=== PATIENT | male | born 1970 | race Caucasian/White ===

== ENCOUNTER 2016-04-29 16:31 | Inpatient (IN) | payer OTHER ==
[~2016-04-29] VITALS: Ht 190.5 cm; Wt 145.2 kg
[~2016-04-29 16:31] MED LIST: AMOXICILLIN500 M3 PO; BACTRIM DS TAB1 EACH PO; DURICEF500 MG PO; FLAGYL 25O MG250 M1 PO; GLUCOPHAGE 500500 MG PO; GLYBURIDE5 MG PO; KEFLEX 250MG C250 MG PO; KEFLEX500 MG PO; LEVEMIR FL300 UNITS/ SC; NORVASC 5MG TAB5 MG PO; OXYCODONE HCL5 MG PO; PRINIVIL10 MG PO
--- NOTE | 2016-04-29 17:30 | History & Physical Pre-Op ---
General Information and HPI History of Present Illness: Sg is a 45-year-old diabetic who presents to the ER with a red, hot and swollen right foot. The patient has a long-standing and chronic complaint of a nonhealing ulcer of the plantar aspect of his right foot. He was seen by me in an outpatient setting periodically for debridements. According to the patient, the lesion significantly worsened over the past week with an increase in drainage or redness and swelling. The patient also admits to chills occurring over the weekend. Patient states that his sugars have been somewhat elevated. Allergies/Medications Allergies: Coded Allergies: cephalexin (From KEFLEX) (Intermediate, HIVES 04/29/16) adhesive (Mild, IRRITATION 04/29/16) Home Med list Amlodipine (Norvasc 5MG Tab) 5 MG TAB 5 MG PO DAILY HTN Amoxicillin 500 MG TABLET 1 TAB PO TID CELLULITIS Cephalexin (Keflex 250MG Cap) 250 MG CAP 3 CAP PO Q6 infection Insulin Detemir (Levemir Flexpen) 300 UNITS/3 ML PEN 14 UNIT SC BID DM Lisinopril (Prinivil) 10 MG TAB 40 MG PO DAILY HTN Metformin Hydochloride (Glucophage 500MG Tab) 500 MG TABLET 1 TAB PO BID DIABETES Metronidazole (Flagyl 25O MG Tablet) 250 MG TAB 500 MG PO Q8 c.diff colitis Oxycodone Hydrochloride (Oxycodone HCl) 5 MG TAB 5 MG PO Q4-PRN PRN PAIN SCALE 6-10 Sulfamethoxazole/Trimethoprim (Bactrim Ds Tablet) 1 EACH TABLET 1 TAB PO BID CELLULITIS Past History Medical History Neurological: NONE EENT: NONE Cardiovascular: hypertension Respiratory: NONE Gastrointestinal: NONE Hepatic: NONE Renal: NONE Musculoskeletal: NONE Psychiatric: NONE Endocrine: diabetes, obesity Blood Disorders: NONE Cancer(s): NONE History of MRSA: No History of VRE: No History of CDIFF: Yes Surgical History Pertinent Surgical History: non-contributory Past Family/Social History Family History Relations & Conditions if any FATHER (coronary artery disease-status post angioplasty and stents). MOTHER (diverticulitis). BROTHER (diabetes). Psychosocial History Services at Home None ETOH Use: occasional use Illicit Drug Use: denies illicit drug use Review of Systems Review of Systems: Unremarkable except for that noted in history of present illness Exam & Diagnostic Data Last 24 Hrs of Vital Signs/I&O Vital Signs Date Time Temp Pulse Resp B/P Pulse O2 O2 Flow FiO2 Ox Delivery Rate 04/29 1636 97.9 100 20 150/85 98 Room Air Physical Exam: Probing wound noted to the plantar aspect of the right great toe with cellulitis and edema extending to the medial arch and the dorsum of the foot proximally. There is fluctuance identified within the plantar medial space. Assessment/Plan Assessment/Plan: Diabetic foot infection with cellulitis right foot. Patient will be admitted for debridement and IV antibiotics. Patient nothing by mouth for now anticipating I&D tonight. Medical comanagement for diabetes pending. As Ranked By This Provider Problem List: 1. Cellulitis of right foot Attending MD Review Statement Attending Statement Attending MD Statement: examined this patient
--- NOTE | 2016-04-29 17:37 | ED ANKLE/FOOT INJURY COMPLAINT ---
History of Present Illness General Chief Complaint: General Adult Stated Complaint: SENT BY DR ORTIZ FOR EVLA OF RT FOOT ? INFECTI Source: patient Exam Limitations: no limitations Allergies Coded Allergies: cephalexin (From KEFLEX) (Intermediate, HIVES 04/29/16) adhesive (Mild, IRRITATION 04/29/16) Reconcile Medications Amlodipine (Norvasc 5MG Tab) 5 MG TAB 5 MG PO DAILY HTN Aspirin (Aspirin*) 81 MG TAB.CHEW 1 TAB PO DAILY heart (Reported) Insulin Detemir (Levemir Flextouch) 100 UNIT/ML (3 ML) INSULN.PEN 25 UNITS SC BID DIABETES (Reported) Lisinopril (Prinivil) 10 MG TAB 40 MG PO DAILY HTN Lovastatin 20 MG TABLET 1 TAB PO DAILY cholesterol (Reported) Metformin Hydochloride (Glucophage 500MG Tab) 500 MG TABLET 1 TAB PO BID DIABETES Sitagliptin Phosphate (Januvia) 100 MG TABLET 1 TAB PO DAILY DIABETES ( Reported) Triage Note: TRIAGE: PT SENT TO ER BY DR MALAGON FOR ADMISSION FOR INFECTION TO R FOOT. HAS HAD INJURY/INFECTION TO FOOT X APPROXIMATELY 4 MONTHS. Triage Nurses Notes Reviewed? yes HPI: This patient is a 45-year-old male with past medical history including diabetes who presented to the emergency department today sent in at the request of Dr. Malagon for a washout of right foot infection. The patient reported that he had the flu over the weekend and has had intermittent tactile fevers and chills since then. He reported that the pain in his right foot except an 8 out of 10, is throbbing, and radiates to his heel. The patient denied any numbness or tingling in his extremities. He denied any ankle or knee pain. This patient does not have anything to eat today. (INGE BISHOP,RADHA) Vital Signs & Intake/Output Vital Signs & Intake/Output Vital Signs Date Time Temp Pulse Resp B/P Pulse O2 O2 Flow FiO2 Ox Delivery Rate 05/01 0854 98.6 92 18 108/70 96 Room Air 05/01 0843 92 108/70 05/01 0654 98.1 94 22 126/70 97 Room Air 05/01 0257 98.0 93 22 126/70 97 Room Air 05/01 0000 Room Air 04/30 2350 98.8 04/30 2250 101.7 04/30 2228 102.3 108 22 130/70 92 Room Air 04/30 2151 102.3 ED Intake and Output 05/01 0000 04/30 1200 Intake Total 3800 300 Output Total Balance 3800 300 Intake, IV 2000 300 Intake, Oral 1800 Patient 320 lb Weight Past History Travel History Traveled to [place] past 21 day No Medical History Any Pertinent Medical History? see below for history Neurological: NONE EENT: NONE Cardiovascular: hypertension Respiratory: NONE Gastrointestinal: NONE Hepatic: NONE Renal: NONE Musculoskeletal: NONE Psychiatric: NONE Endocrine: diabetes, obesity Blood Disorders: NONE Cancer(s): NONE History of MRSA: No History of VRE: No History of CDIFF: Yes Surgical History Surgical History: non-contributory Psychosocial History Who do you live with Significant Other Services at Home None What is your primary language Lao Tobacco Use: Never used ETOH Use: occasional use Illicit Drug Use: denies illicit drug use Family History Family History, If Any: FATHER (coronary artery disease-status post angioplasty and stents). MOTHER (diverticulitis). BROTHER (diabetes). Hx Contributory? No (RADHA ALCAZAR PA-C) Review of Systems Review of Systems Constitutional: Reports: see HPI. EENTM: Reports: no symptoms. Respiratory: Reports: no symptoms. Cardiovascular: Reports: no symptoms. GI: Reports: no symptoms. Musculoskeletal: Reports: no symptoms. Skin: Reports: see HPI. Neurological/Psychological: Reports: no symptoms. All Other Systems: Reviewed and Negative (RADHA ALCAZAR PA-C) Physical Exam Physical Exam Leg/Knee/Thigh Left: normal range of motion, normal inspection Comments: Well-developed well-nourished person in no acute distress HEENT: Normal EENT exam, head normocephalic, moist mucous membranes Back: Normal inspection Cardiovascular: Regular rate and rhythm with no murmurs Respiratory: No respiratory distress. Speaking in full sentences Abdomen: Soft, nontender and nondistended Right foot: Nonpitting pedal edema. No bony or muscular deformities. Ulceration with no active bleeding to the medial aspect of the base of the first digit with surrounding erythema and edema. Range of motion of the ankle limited due to pain. Capillary refill less than 2 seconds. Dorsalis pedis and posterior tibialis pulses 2+ and strong Neuro: Alert oriented x3, cranial nerves II through XII grossly intact. Skin: No appreciable rash on exposed skin, skin is warm and dry. Psych: Mood and affect is normal, memory and judgment is normal. (INGE BISHOP,RADHA) Progress Differential Diagnosis: DVT, CHF, arterial insufficiency, cellulitis, septic arthritis, gout, osteomyelitis Diagnostic Imaging: Viewed by Me: Radiology Read. Discussed w/RAD: Radiology Read. Radiology Impression: PATIENT: ALF JUAREZ PRESENT AGE: 45 PATIENT ACCOUNT NO: [id number] : 68 LOCATION: [facility] ORDERING PHYSICIAN: RADHA ALCAZAR PA-C SERVICE DATE: 04/29/16 EXAM TYPE: RAD - XRY-FOOT COMPLETE, R EXAMINATION: XR FOOT, RIGHT CLINICAL INFORMATION: Right foot pain. Evaluate for acute osteomyelitis. COMPARISON: None. TECHNIQUE: AP, lateral, and oblique views of the right foot. FINDINGS: Multiple views of the right foot demonstrate scattered foci of subcutaneous emphysema along the plantar aspect of the right foot. A focal ulcer is also visualized along the plantar aspect of the right foot. No acute fracture or dislocation of the right foot is identified. There is no visible cortical destruction or significant periosteal reaction. However, please note that MRI and nuclear medicine bone scan are more sensitive in evaluating for early changes of acute osteomyelitis. No radiopaque foreign bodies are identified. IMPRESSION: Scattered foci of subcutaneous emphysema along the plantar aspect of the right foot with an associated soft tissue ulcer along the plantar aspect of the right foot. No visible cortical destruction or significant periosteal reaction. However, please note that MRI and nuclear medicine bone scan are more sensitive in evaluating for acute changes of osteomyelitis. If clinical concern for osteomyelitis persists, consider correlation with one of these imaging studies. DICTATED BY: MALGORZATA GARCIA MD DATE/TIME DICTATED:04/29/161838 ADOBE FLEX DEVELOPER:NOY DATE/TIME TRANSCRIBED:04/29/161838 CONFIDENTIAL, DO NOT COPY WITHOUT APPROPRIATE AUTHORIZATION. <Electronically signed in Other Vendor System> SIGNED BY: MALGORZATA GARCIA MD 04/29/16 4448 (INGE BISHOP,RADHA) Plan of Care: Orders Procedure Date/time Status SERUM PROTEIN ELECTR. Ref$ 05/02 0600 Active MAGNESIUM 05/02 0600 Active COMPLEMENT C4 05/02 0600 Active COMPLEMENT C3 05/02 0600 Active BASIC ELECTROLYTES PLUS BUN&CR 05/02 0600 Active Consistent Carbohydrate 2 05/01 D Active Nothing by Mouth 05/01 B Complete PATHOLOGY SPECIMEN 05/01 1408 Complete URINE LYTES, SPOT 05/01 0927 Complete US-RENAL/KIDNEY 05/01 UNK Active PHYSICIAN CONSULT 05/01 UNK Active MISSING MEDICATION FORM 04/30 UNK Active Current Medications Sig/Angela Start time Last Medication Dose Stop Time Status Admin Insulin Detemir 30 UNITS BID 05/01 2200 AC (Levemir) Sodium Chloride 1,000 ML Q6H 05/01 1500 AC (Normal Saline 0.9%) Acetaminophen 650 MG Q6-PRN PRN 04/29 2014 AC (Tylenol) Laboratory Tests 05/01/16 1250: Ur Random Creatinine 205.6, Ur Random Sodium < 5 L, Ur Random Potassium 56.1, Fraction Sodium Excret 05/01/16 0640: Anion Gap 13, Estimated GFR 38 L, BUN/Creatinine Ratio 21.6, CBC w Diff MAN DIFF ORDERED, RBC 3.81 L, MCV 90.5, MCH 30.6, RDW 13.3, MPV 9.3, Segmented Neutrophils 65, Band Neutrophils 22 H, Lymphocytes 6 L, Monocytes 7, Platelet Estimate VERIFIED BY SMEAR, Normocytic RBCs VERIFIED, Normochromic RBCs VERIFIED , PUBS MCHC 33.9 Departure Departure Disposition: STILL A PATIENT Condition: Stable Clinical Impression Primary Impression: Foot infection Referrals: POLK ,CARLOS Lujan (PCP/Family) Departure Forms: Customer Survey General Discharge Information OR/GI Note Spoke With: TERRY MALAGON DPM ED Treatment Decision: ALF JUAREZ requires urgent operative management or an emergent procedure that cannot be performed in the Emergency Room setting. Transport To: [facility] (INGE BISHOP,RADHA) PA/DIRECTOR FRAUD Co-Sign Statement Statement: ED Attending supervision documentation- [X] I saw and evaluated the patient. I have also reviewed all the pertinent lab results and diagnostic results. I agree with the findings and the plan of care as documented in the PA's/DIRECTOR FRAUD's documentation. [X] I have reviewed the ED Record and agree with the PA's/DIRECTOR FRAUD's documentation. [] Additions or exceptions (if any) to the PAs/DIRECTOR FRAUD's note and plan are summarized below: [] (SAUMYA PERKINS,ZEUS Hernandez)
[2016-04-29 17:52] LABS: ABSOLUTE BASOPHIL COUNT 0 /CUMM (0.0-0.2); ABSOLUTE EOSINOPHIL COUNT 0 /CUMM (0.0-0.7); ABSOLUTE GRANULOCYTE CT 22.5 /CUMM (1.4-6.5); ABSOLUTE LYMPH COUNT 0.8 /CUMM (1.2-3.4); ABSOLUTE MONOCYTE COUNT 0.9 /CUMM (0.10-0.60); BASOPHIL % 0 % (0.0-2.0); EOSINOPHIL % 0.1 % (0-5); GRANULOCYTE % 92.8 % (42.2-75.2); HEMATOCRIT 41.6 % (42-52); MEAN CORPUSCULAR HGB 30.5 PG (27.0-31.0); MEAN CORPUSCULAR HGB CONC 33.7 G/DL (33.0-37.0); MEAN CORPUSCULAR VOLUME 90.5 FL (80.0-94.0); MEAN PLATELET VOLUME 8.4 FL (7.4-10.4); PLATELET COUNT 276 /CUMM (130-400); RBC DISTRIBUTION WIDTH 12.8 % (11.5-14.5); WHITE BLOOD CELL COUNT 24.2 /CUMM (4.8-10.8)
[2016-04-29 17:59] LABS: PT 15.5 SEC (9.4-12.5); PTT 32 SEC (25-37)
[2016-04-29] MEDS ORDERED: JANUVIA100 M1 PO (18:23)
[2016-04-29] MEDS ORDERED: LEVEMIR FL100 UNIT/1 SC (18:23)
--- NOTE | 2016-04-29 18:44 | RADIOLOGY REPORT ---
EXAMINATION: XR FOOT, RIGHT CLINICAL INFORMATION: Right foot pain. Evaluate for acute osteomyelitis. COMPARISON: None. TECHNIQUE: AP, lateral, and oblique views of the right foot. FINDINGS: Multiple views of the right foot demonstrate scattered foci of subcutaneous emphysema along the plantar aspect of the right foot. A focal ulcer is also visualized along the plantar aspect of the right foot. No acute fracture or dislocation of the right foot is identified. There is no visible cortical destruction or significant periosteal reaction. However, please note that MRI and nuclear medicine bone scan are more sensitive in evaluating for early changes of acute osteomyelitis. No radiopaque foreign bodies are identified. IMPRESSION: Scattered foci of subcutaneous emphysema along the plantar aspect of the right foot with an associated soft tissue ulcer along the plantar aspect of the right foot. No visible cortical destruction or significant periosteal reaction. However, please note that MRI and nuclear medicine bone scan are more sensitive in evaluating for acute changes of osteomyelitis. If clinical concern for osteomyelitis persists, consider correlation with one of these imaging studies.
--- NOTE | 2016-04-29 20:15 | Operative Report ---
Operative/Inv Procedure Report Surgery Date: 04/29/16 Name of Procedure: 1 open incision and drainage deep to the D fashion with exposure of the extensor and flexor tendon and tendon sheath multiple sites right foot 2 open partial first ray resection right foot 3 excisional debridement Pre-Operative Diagnosis: 1 gas gangrene right foot 2 diabetic peripheral neuropathy Post-Operative Diagnosis: The same Estimated Blood Loss: less than 50ml Surgeon/Cost Estimating Clerk: TERRY MALAGON DPM Anesthesia: moderate sedation, block Operative/Procedure Note Note: After obtaining informed consent the patient was brought to the operating room and placed on the operating table in the supine position. The patient isn't securely fastened to the operating table utilizing safety belt. After administration of IV sedation, 10 mL of 0.5% Marcaine plain was infiltrated about the patient's right ankle. The right foot and ankle within scrubbed prepped and draped in usual aseptic manner. A large full-thickness necrotic was identified plantarly extending along the medial arch. 15 blade visualized sharply revised skin margins. Dissection was then carried down deep to the deep fascia with exposure of the extensor and flexor tendon and tendon sheath multiple sites right foot. All necrotic nonviable infected tissue sharply evacuated from the wound bed. Partially tendon 15 mL of foul-smelling purulence was expressed from the plantar space. Soft tissue specimen was harvested for microbiologic inspection. The dissection then continued onto the periosteum overlying the distal first metatarsal. This was incised reflected. Sagittal bone saw was utilized performed through and through osteotomy. This osseous segment was freed and passed from the operative field. Specimen was sent for both microbiologic and pathologic inspection. Nipple was then irrigated with 3 L normal normal sterile saline infusion 50,000 units of bacitracin. Following this the foot was redraped and the surgeon's top of gestation clean gloves. Any bleeding vessels identified were cauterized a lace encountered. Nipple was then packed with 200 iodoform followed by 4 x 4's EBD pads Kerlix and an Naldo wrap. The patient was noted tolerate both procedure and anesthesia well and the patient was transported from the operating room to recovery by sent stable.
[2016-04-29 22:00] VITALS: BP 118/82
[2016-04-29] MEDS ORDERED: ASPIRIN81 M4 PO (22:07)
[2016-04-29] MEDS ORDERED: LOVASTATIN20 M1 PO (22:11)
--- NOTE | 2016-04-29 22:39 | Cons- Medical ---
ANNETTE FIGUEROA 04/29/16 2225: General Information and HPI Consulting Request Date of Consult: 04/29/16 Requested By: TERRY MALAGON DPM Reason for Consult: Diabetes management Source of Information: patient Exam Limitations: no limitations History of Present Illness: He is 45-year-old Obese man with past medical history of poorly controlled diabetes, hypertension, chronic nonhealing ulcer of plantar aspect of his right foot status post multiple debridements in past by Dr. Malagon, history of multi loculated abscess in posterior neck status post I&D in 2016, history of C. difficile and obstructive sleep apnea not using CPAP anymore. He was sent to ER by Dr. Malagon for diabetic foot infection with cellulitis of right foot. He was admitted for debridement and IV antibiotics. 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 Patient is now status post open incision and drainage, excisional debridement and open partial first ray resection of right foot by Dr. Malagon today. Currently he is feeling mild pain in his right foot. Other review of systems negative. Patient has diabetes mellitus for last 25 years. Diabetes is very poorly controlled and he does not follow diabetic diet. He has an appointment with Dr. dawkins on June 05. He denies smoking, drinks alcohol occasionally, no use of recreational drugs. His family history is positive for coronary artery disease and CABG in his father, pancreatic cancer in his grandmother and history of diabetes in his grandfather and brother. Allergies/Medications Allergies: Coded Allergies: cephalexin (From KEFLEX) (Intermediate, HIVES 04/29/16) adhesive (Mild, IRRITATION 04/29/16) Home Med List: Amlodipine (Norvasc 5MG Tab) 5 MG TAB 5 MG PO DAILY HTN Aspirin (Aspirin*) 81 MG TAB.CHEW 1 TAB PO DAILY heart (Reported) Insulin Detemir (Levemir Flextouch) 100 UNIT/ML (3 ML) INSULN.PEN 25 UNITS SC BID DIABETES (Reported) Lisinopril (Prinivil) 10 MG TAB 40 MG PO DAILY HTN Lovastatin 20 MG TABLET 1 TAB PO DAILY cholesterol (Reported) Metformin Hydochloride (Glucophage 500MG Tab) 500 MG TABLET 1 TAB PO BID DIABETES Sitagliptin Phosphate (Januvia) 100 MG TABLET 1 TAB PO DAILY DIABETES ( Reported) Current Medications: Current Medications Sig/Angela Start time Last Medication Dose Route Stop Time Status Admin Acetaminophen 650 MG Q6-PRN PRN 04/29 2014 AC PO Amlodipine Besylate 5 MG DAILY 04/30 1000 UNVr PO Atorvastatin Calcium 20 MG DAILY 04/30 1000 UNVr PO Enoxaparin Sodium 40 MG DAILY 04/30 1000 UNVr SC Insulin Aspart 0 TIDAC/HS 04/29 224 UNVr SC Insulin Detemir 25 UNITS BID 04/30 1000 UNVr SC Insulin Detemir 12 UNITS ONCE ONE 04/29 2214 UNVr SC 04/29 2215 Lisinopril 40 MG DAILY 04/30 1000 UNVr PO Oxycodone HCl 5 MG Q4-PRN PRN 04/29 2029 AC PO Vancomycin HCl 1,500 MG Q12 04/29 2199 CAN IV Vancomycin HCl 1,500 MG Q12H 04/29 2199 AC Sodium Chloride 250 ML IV Review of Systems Review of Systems Constitutional: Denies: chills, fever, weakness. EENTM: Denies: no symptoms. Cardiovascular: Denies: chest pain, palpitations. Respiratory: Denies: cough, short of breath. GI: Denies: abdominal pain, constipation, diarrhea, nausea, vomiting. Genitourinary: Denies: dysuria. Neurological/Psychological: Reports: numbness (toes of right foot). 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 MOTHER (diverticulitis). BROTHER (diabetes). Psychosocial History Where Do You Live? Home Services at Home: None Smoking Status: Never Smoked ETOH Use: occasional use Illicit Drug Use: denies illicit drug use Functional Ability ADLs Independent: dressing, eating, toileting, bathing. Exam & Diagnostic Data Last 24 Hrs of Vital Signs/I&O Vital Signs Date Time Temp Pulse Resp B/P Pulse O2 O2 Flow FiO2 Ox Delivery Rate 04/29 1820 99.2 112 16 144/75 99 Room Air 04/29 1749 98 Room Air 04/29 1636 97.9 100 20 150/85 98 Room Air Physical Exam General Appearance: no apparent distress, alert, awake, comfortable, obese Respiratory: normal breath sounds, chest non-tender, lungs clear Cardiovascular: tachycardia Peripheral Pulses: 4+ popliteal (R), 4+ tibialis posterior (L), 4+ dorsalis pedis (L) Gastrointestinal: normal bowel sounds, soft, non-tender, obese Extremities: chronic venous stasis skin changes bilaterally lower extremities, right foot bandage intact. Right leg is swollen as compared to left. No redness, warmth or tenderness Neurologic/Psych: awake, alert, oriented x 3 Last 24 Hrs of Labs/Ramin: Laboratory Tests 04/29/16 1735: Anion Gap 18 H, Estimated GFR > 60, BUN/Creatinine Ratio 19.1, Glucose 418 H, Calcium 9.6, Total Bilirubin 0.9, AST 14 L, ALT 22, Alkaline Phosphatase 90, Total Protein 7.2, Albumin 3.2 L, Globulin 4.0, Albumin/Globulin Ratio 0.8 L, PT 15.5 H, INR 1.48 H, APTT 32, CBC w Diff MAN DIFF ORDERED, RBC 4.60 L, MCV 90.5, MCH 30.5, RDW 12.8, MPV 8.4, Gran % 92.8 H, Lymphocytes % 3.2 L, Monocytes % 3.9, Eosinophils % 0.1, Basophils % 0 L, Absolute Granulocytes 22.5 H, Segmented Neutrophils 87 H, Band Neutrophils 8 H, Absolute Lymphocytes 0.8 L, Lymphocytes 2 L, Monocytes 3, Absolute Monocytes 0.9 H, Absolute Eosinophils 0, Absolute Basophils 0, Platelet Estimate ADEQUATE, Normocytic RBCs VERIFIED, Normochromic RBCs VERIFIED, PUBS MCHC 33.7, ESR Westergren 113 H Diagnostic Data EKG Results Normal sinus rhythm. No acute ST-T wave changes Other Results Right foot x-ray showed subcutaneous emphysema along the plantar aspect of right foot with an associated soft tissue ulcer. Assessment/Plan Assessment/Plan He is 45-year-old Obese man with past medical history of poorly controlled diabetes, hypertension, chronic nonhealing ulcer of plantar aspect of his right foot status post multiple debridements in past by Dr. Malagon, history of multi loculated abscess in posterior neck status post I&D in 2016, history of C. difficile and obstructive sleep apnea not using CPAP anymore. Problem list 1. Sepsis secondary to chronic nonhealing ulcer of right foot now with cellulitis and gas gangrene status post excisional debridement and first ray resection right foot. He was tachycardic with WBC count 24.2 with 8 bands. 2. History of poorly controlled diabetes mellitus 3. History of hypertension 4. Hyponatremia. Sodium is 129. Patient blood sugar was 418 so corrected sodium is around 135 that is closer to baseline. 5. Slightly elevated INR. 1.48. Patient might have fatty liver disease. Plan We will monitor vitals closely. Continue IV vancomycin and pain management with Tylenol and Roxicodone. Follow-up blood and OR cultures. We will start patient on NovoLog insulin sliding scale, medium dose, before each meal in addition to bedtime sliding scale. We will continue his home dose of Levemir, 25 units twice a day. Accu-Cheks before each meal and at bedtime. Will hold his metformin and Januvia while in hospital. will check HbA1c. Consistent carbohydrate diet. Endo consult in a.m. We will continue his amlodipine and lisinopril for hypertension. Will repeat BEP and CBC in morning. Subcutaneous Lovenox for DVT prophylaxis. Full code. Problem List: 1. Cellulitis of right foot Consult Acknowledgment - Thank you for your consult request. TERA PERKINS, [facility] 04/29/16 2497: Assessment/Plan Consult Acknowledgment - Thank you for your consult request. Attending MD Review Statement Attending Statement Attending MD Statement: examined this patient, discuss w/resident/PA/ASSOCIATE PROFESSOR OF MEDICINE, agreed w/resident/PA/ASSOCIATE PROFESSOR OF MEDICINE, discussed with family Attending Assessment/Plan: 45 yo morbidly obese M with h/o poorly controlled T2DM on insulin (A1c 11.4 in Feb 2016), neuropathy, HTN, HLD, last admitted to [facility] (04/14/15 04/18/15) for abscess of posterior neck, course c/b Cdiff infection, MELISSA, DJD, is s/p excisional debridement and first ray resection of right foot due to gas gangrene of right foot. Patient has been having chronic nonhealing ulcer of plantar aspect of his right foot and has had multiple debridements by Dr. Malagon. Over the past week, there was increasing discharge, erythema and swelling around the wound due to which patient was evaluated at Dr. Malagon office and sent in to ER for admission and debridement. Currently patient is asymptomatic. Vitals stable. Labs with leukocytosis (24) and bandemia (8), Na 129, BUN 21, AG 18, glucose 418. EKG: Sinus tachycardia with nonspecific T-wave changes. Assessment and plan: 1. Plan for return to OR on Wednesday per Dr. Malagon. Continue Vancomycin until culture results are back. Dr. Malagon to consult with ID. Pain management. 2. DM. Accucheks, check HbA1c, levemir 12 units tonight, change to 25 units BID from AM (home dose). Hold metformin and januvia. Initiate novolog SS TIDAC/HS. Patient has an scheduled appointment with Dr. Dawkins on June 05. Endo consult I spoke with Dr. Dawkins and gave her a brief idea about the patient. 3. HTN. Resume amlodipine and lisinopril. Resume aspirin in AM. 4. HLD. Resume statin. DVT ppx Lovenox.
[2016-04-30 06:38] VITALS: BP 138/72
--- NOTE | 2016-04-30 07:25 | PN- Medicine Consult ---
ELIER NAILS 04/30/16 0724: Assessment/Plan Assessment/Plan Assessment: This is a 45-year-old Obese man with past medical history of poorly controlled diabetes, hypertension, chronic nonhealing ulcer of plantar aspect of his right foot status post multiple debridements in past by Dr. Dowd, history of multi loculated abscess in posterior neck status post I&D in 2016, history of C. difficile and obstructive sleep apnea not using CPAP anymore. 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 He was admitted for debridement and IV antibiotics and today is day one post procedure. Plan: Sepsis secondary to chronic nonhealing ulcer of right foot now with cellulitis and gas gangrene status post excisional debridement and first ray resection right foot. He was tachycardic with WBC count 24.2 with 8 bands. Patient remained afebrile overnight. CBC still pending to assess for leukocytosis and bands. Is on IV vancomycin 1500 mg daily. Continue with IV antibiotics and monitor for any signs of infections. His patient has continued to be tachycardic with heart rate between 110 and 120 overnight on presentation had an anion gap of 18, I'll check lactic acid and consider hydration. With evidence of gas on the foot x-rayed this patient will benefit from anaerobic coverage especially IV Unasyn. Dr. Wayne will consult ID about the case follow-up recommendations. Acute kidney injury This morning the patient has increased creatinine of 1.5 from 1.1 yesterday and also increasing BUN to 28. There is no record of urine output overnight instructed the nurse to measure urine. We will hydrate the patient with 1 L at 250 mL/h and then to continue at 150 mL for another 2 L. History of poorly controlled diabetes mellitus Patient started on diabetic diet and is on insulin sliding scale. HbA1c results still pending, follow-up. Patient follows with Dr. Azul formal endocrinology consult pending. Fingerstick at night 384. Continue with Accu-Cheks and insulin. Follow-up endocrinology consult recommendations. History of hypertension Patient has history of hypertension he is on amlodipine 5 mg daily. Overnight blood pressure has remained stable with diastolic between 70 and 75 and a systolic of 130 to 140. Problem List: 1. Foot infection 2. Cellulitis of right foot 3. Sepsis Subjective Subjective: Review the patient seated comfortably on the bed waiting to eat his breakfast. Patient reports to have slept well, he is anxious as he doesn't like being in within healthcare facilities and just got the news that she is to needed to be taken out which was to be towards some for him. He denies any fever or chills overnight. He has no nausea or vomiting and was getting ready to have his breakfast. Review of Systems Constitutional: Denies: chills, fever. Cardiovascular: Denies: chest pain, palpitations. Respiratory: Denies: cough, short of breath. Gastrointestinal: Denies: abdominal pain, nausea, vomiting. Genitourinary: Denies: no symptoms. Musculoskeletal: Reports: see HPI. Comments: All other systems reviewed and are negative Objective Last 24 Hrs of Vital Signs/I&O Vital Signs Date Time Temp Pulse Resp B/P Pulse O2 O2 Flow FiO2 Ox Delivery Rate 04/30 0648 95 Room Air 04/30 0638 97.8 119 23 138/72 97 Nasal Cannula 04/30 0000 97 Nasal 2.0L Cannula 04/29 2200 99.1 108 24 118/82 97 Nasal 2.0L Cannula 04/29 1820 99.2 112 16 144/75 99 Room Air 04/29 1749 98 Room Air 04/29 1636 97.9 100 20 150/85 98 Room Air Intake & Output 04/30 1600 04/30 0800 04/30 0000 Intake Total 300 Output Total Balance 300 Intake, IV 300 Patient 320 lb Weight Physical Exam General Appearance: no apparent distress, alert, awake Head: atraumatic, normal appearance Neck: normal inspection, supple Cardiovascular: regular rate/rhythm Respiratory: normal breath sounds, no respiratory distress Abdomen: normal bowel sounds, soft, non-tender Extremities: Right foot bandaged post procedure Current Medications: Current Medications Sig/Angela Start time Last Medication Dose Route Stop Time Status Admin Acetaminophen 1,000 MG .STK-MED ONE 04/29 2021 DC IV 04/29 2022 Acetaminophen 650 MG Q6-PRN PRN 04/29 2014 AC PO Amlodipine Besylate 5 MG DAILY 04/30 1000 AC PO Aspirin 81 MG DAILY 04/30 1000 AC PO Atorvastatin Calcium 20 MG DAILY 04/30 1000 AC PO Enoxaparin Sodium 40 MG DAILY 04/30 1000 AC SC Influenza Virus 0.5 ML 1000 04/30 1000 AC Vaccine IM 04/30 1001 Insulin Aspart 0 TIDAC/HS 04/29 2245 AC 04/30 SC 0848 Insulin Detemir 25 UNITS BID 04/30 1000 DC SC Insulin Detemir 30 UNITS BID 04/30 1000 AC SC Insulin Detemir 12 UNITS ONCE ONE 04/29 2215 DC 04/29 SC 04/29 221 2250 Lisinopril 40 MG DAILY 04/30 1000 AC PO Oxycodone HCl 5 MG Q4-PRN PRN 04/29 2030 AC 04/30 PO 0634 Sodium Chloride 1,000 ML .Q4H 04/30 0900 UNVr IV 04/30 1259 Vancomycin HCl 1,500 MG Q12 04/29 2200 CAN IV Vancomycin HCl 1,500 MG Q12H 04/29 220 AC 04/29 Sodium Chloride 250 ML IV 2356 Results Last 24 Hrs Lab/Ramin Results: Laboratory Tests 04/30/16 0823: Lactic Acid Pending 04/30/16 0705: Anion Gap 16, Estimated GFR 50 L, BUN/Creatinine Ratio 18.7, Glucose Pending, Magnesium 1.6, Troponin I < 0.01, CBC w Diff Pending, WBC Pending, RBC Pending, Hgb Pending, Hct Pending, MCV Pending, MCH Pending, RDW Pending, Plt Count Pending, MPV Pending, Gran % Pending, Lymphocytes % Pending, Monocytes % Pending , Eosinophils % Pending, Basophils % Pending, Absolute Granulocytes Pending, Absolute Lymphocytes Pending, Absolute Monocytes Pending, Absolute Eosinophils Pending, Absolute Basophils Pending, PUBS MCHC Pending 04/29/16 1735: Hemoglobin A1c Pending 04/29/16 1735: Anion Gap 18 H, Estimated GFR > 60, BUN/Creatinine Ratio 19.1, Glucose 418 H, Calcium 9.6, Total Bilirubin 0.9, AST 14 L, ALT 22, Alkaline Phosphatase 90, Total Protein 7.2, Albumin 3.2 L, Globulin 4.0, Albumin/Globulin Ratio 0.8 L, PT 15.5 H, INR 1.48 H, APTT 32, CBC w Diff MAN DIFF ORDERED, RBC 4.60 L, MCV 90.5, MCH 30.5, RDW 12.8, MPV 8.4, Gran % 92.8 H, Lymphocytes % 3.2 L, Monocytes % 3.9, Eosinophils % 0.1, Basophils % 0 L, Absolute Granulocytes 22.5 H, Segmented Neutrophils 87 H, Band Neutrophils 8 H, Absolute Lymphocytes 0.8 L, Lymphocytes 2 L, Monocytes 3, Absolute Monocytes 0.9 H, Absolute Eosinophils 0, Absolute Basophils 0, Platelet Estimate ADEQUATE, Normocytic RBCs VERIFIED, Normochromic RBCs VERIFIED, PUBS MCHC 33.7, ESR Westergren 113 H Microbiology 04/29 1999 EXTREMITIE: Gross Specimen Examination - RECD 04/29 1999 EXTREMITIE: Gram Stain - RECD 04/29 1999 EXTREMITIE: Gross Specimen Examination - RES 04/29 1999 EXTREMITIE: Gram Stain - RES 04/29 1745 BLOOD: Blood Culture - RES GRAM POSITIVE COCCI 04/29 173 BLOOD: Blood Culture - RES GRAM POSITIVE COCCI GINGER TSE MD 04/30/16 1813: Attending MD Review Statement Attending Sign Off Attending Cosign Statement: I have: examined this patient, reviewed [facility] EMR data, personally reviewd images, discussd w/resident/PA/MEDICAL DIRECTOR OCCUPATIONAL HEALTH, discussed mgmt plan w/bob, amended to note. Other Findings: The patient was seen and discussed with the resident. Agree with the plan of care. Appreciate ID input and agree with change to Unasyn.
[2016-04-30 08:03] LABS: ABSOLUTE BASOPHIL COUNT 0.1 /CUMM (0.0-0.2); ABSOLUTE EOSINOPHIL COUNT 0 /CUMM (0.0-0.7); ABSOLUTE GRANULOCYTE CT 21.4 /CUMM (1.4-6.5); ABSOLUTE LYMPH COUNT 0.9 /CUMM (1.2-3.4); BASOPHIL % 0.2 % (0.0-2.0); EOSINOPHIL % 0 % (0-5); GRANULOCYTE % 91.6 % (42.2-75.2); HEMATOCRIT 38.1 % (42-52); MEAN CORPUSCULAR HGB 30.4 PG (27.0-31.0); MEAN CORPUSCULAR HGB CONC 33.6 G/DL (33.0-37.0); MEAN CORPUSCULAR VOLUME 90.5 FL (80.0-94.0); MEAN PLATELET VOLUME 9.1 FL (7.4-10.4); PLATELET COUNT 276 /CUMM (130-400); RED BLOOD CELL CT 4.21 /CUMM (4.70-6.10); WHITE BLOOD CELL COUNT 23.3 /CUMM (4.8-10.8)
--- NOTE | 2016-04-30 08:50 | Cons- Endocrinology ---
General Information and HPI Consulting Request Date of Consult: 04/30/16 Requested By: Medical team Reason for Consult: management of uncontrolled DM type 2. Source of Information: patient, old records Exam Limitations: no limitations History of Present Illness: 45-year-old Obese man with past medical history of poorly controlled diabetes type 2 who has an appointment in 05/2016 as a new patient, was admitted for diabetic right foot infection with cellulitis of right lower extremity and positive blood culture of gram positive cocci. He underwent surgical procedure including toe amputation. He received Levemir 12 units last night. His FSGs were 384 and 361. At home, he was on Levemir 25 units twice a day, Metformin 500 mg twice a day and Januvia 100 mg daily. Allergies/Medications Allergies: Coded Allergies: cephalexin (From KEFLEX) (Intermediate, HIVES 04/29/16) adhesive (Mild, IRRITATION 04/29/16) Home Med List: Amlodipine (Norvasc 5MG Tab) 5 MG TAB 5 MG PO DAILY HTN Aspirin (Aspirin*) 81 MG TAB.CHEW 1 TAB PO DAILY heart (Reported) Insulin Detemir (Levemir Flextouch) 100 UNIT/ML (3 ML) INSULN.PEN 25 UNITS SC BID DIABETES (Reported) Lisinopril (Prinivil) 10 MG TAB 40 MG PO DAILY HTN Lovastatin 20 MG TABLET 1 TAB PO DAILY cholesterol (Reported) Metformin Hydochloride (Glucophage 500MG Tab) 500 MG TABLET 1 TAB PO BID DIABETES Sitagliptin Phosphate (Januvia) 100 MG TABLET 1 TAB PO DAILY DIABETES ( Reported) Review of Systems Review of Systems Constitutional: Reports: see HPI. Cardiovascular: Denies: chest pain. Respiratory: Denies: short of breath. GI: Denies: abdominal pain. Musculoskeletal: Reports: no symptoms. Skin: Reports: see HPI. Hematologic/Endocrine: Denies: polyuria, polydipsia. Past History Travel History Traveled to [place] past 21 day No Medical History Blood Transfusion Hx: No Neurological: NONE EENT: NONE Cardiovascular: hypertension, hyperlipidemia Respiratory: NONE Gastrointestinal: NONE Hepatic: NONE Renal: NONE Musculoskeletal: NONE Psychiatric: NONE Endocrine: diabetes, obesity Blood Disorders: NONE Cancer(s): NONE POURER BUGGY LADLE/Reproductive: NONE Surgical History Surgical History: appendectomy, ABSCESS DRAINAGE TO HEAD L SHOULDER SX Family History Relations & Conditions If Any: FATHER (coronary artery disease-status post angioplasty and stents). MOTHER (diverticulitis). BROTHER (diabetes). Psychosocial History Where Do You Live? Home Services at Home: None Smoking Status: Never Smoked ETOH Use: occasional use Illicit Drug Use: denies illicit drug use Functional Ability ADLs Independent: dressing, eating, toileting, bathing. Exam & Diagnostic Data Last 24 Hrs of Vital Signs/I&O Vital Signs Date Time Temp Pulse Resp B/P Pulse O2 O2 Flow FiO2 Ox Delivery Rate 04/30 0648 95 Room Air 04/30 0638 97.8 119 23 138/72 97 Nasal Cannula 04/30 0000 97 Nasal 2.0L Cannula 04/29 2200 99.1 108 24 118/82 97 Nasal 2.0L Cannula 04/29 1820 99.2 112 16 144/75 99 Room Air 04/29 1749 98 Room Air 04/29 1636 97.9 100 20 150/85 98 Room Air Intake & Output 04/30 1600 04/30 0800 04/30 0000 Intake Total 300 Output Total Balance 300 Intake, IV 300 Patient 320 lb Weight Physical Exam General Appearance: no apparent distress Respiratory: lungs clear Cardiovascular: tachycardia Gastrointestinal: soft, non-tender Extremities: swelling, tenderness (right LE) Labs/Ramin Results: Laboratory Tests 04/30 04/30 04/29 0823 0705 1735 Chemistry Sodium (137 - 145 mmol/L) 129 L Potassium (3.5 - 5.1 mmol/L) 4.3 Chloride (98 - 107 mmol/L) 92 L Carbon Dioxide (22 - 30 mmol/L) 21 L Anion Gap (5 - 16) 16 BUN (9 - 20 mg/dL) 28 H Creatinine (0.7 - 1.2 mg/dL) 1.5 H Estimated GFR (>60 ml/min) 50 L BUN/Creatinine Ratio (7 - 25 %) 18.7 Glucose (65 - 99 mg/dL) Pending Hemoglobin A1c Pending Lactic Acid Pending Magnesium (1.6 - 2.3 mg/dL) 1.6 Troponin I (<0.11 ng/ml) < 0.01 Hematology CBC w Diff Pending WBC Pending RBC Pending Hgb Pending Hct Pending MCV Pending MCH Pending RDW Pending Plt Count Pending MPV Pending Gran % Pending Lymphocytes % Pending Monocytes % Pending Eosinophils % Pending Basophils % Pending Absolute Granulocytes Pending Absolute Lymphocytes Pending Absolute Monocytes Pending Absolute Eosinophils Pending Absolute Basophils Pending PUBS MCHC Pending 04/29 2855 Chemistry Sodium (137 - 145 mmol/L) 129 L Potassium (3.5 - 5.1 mmol/L) 4.3 Chloride (98 - 107 mmol/L) 89 L Carbon Dioxide (22 - 30 mmol/L) 23 Anion Gap (5 - 16) 18 H BUN (9 - 20 mg/dL) 21 H Creatinine (0.7 - 1.2 mg/dL) 1.1 Estimated GFR (>60 ml/min) > 60 BUN/Creatinine Ratio (7 - 25 %) 19.1 Glucose (65 - 99 mg/dL) 418 H Calcium (8.4 - 10.2 mg/dL) 9.6 Total Bilirubin (0.2 - 1.3 mg/dL) 0.9 AST (17 - 59 U/L) 14 L ALT (21 - 72 U/L) 22 Alkaline Phosphatase (< 127 U/L) 90 Total Protein (6.3 - 8.2 g/dL) 7.2 Albumin (3.5 - 5.0 g/dL) 3.2 L Globulin (1.9 - 4.2 gm/dL) 4.0 Albumin/Globulin Ratio (1.1 - 2.2 %) 0.8 L Coagulation PT (9.4 - 12.5 SEC) 15.5 H INR (0.90 - 1.17) 1.48 H APTT (25 - 37 SEC) 32 Hematology CBC w Diff MAN DIFF ORDERED WBC (4.8 - 10.8 /CUMM) 24.2 H RBC (4.70 - 6.10 /CUMM) 4.60 L Hgb (14.0 - 18.0 G/DL) 14.0 Hct (42 - 52 %) 41.6 L MCV (80.0 - 94.0 FL) 90.5 MCH (27.0 - 31.0 PG) 30.5 RDW (11.5 - 14.5 %) 12.8 Plt Count (130 - 400 /CUMM) 276 MPV (7.4 - 10.4 FL) 8.4 Gran % (42.2 - 75.2 %) 92.8 H Lymphocytes % (20.5 - 51.1 %) 3.2 L Monocytes % (1.7 - 9.3 %) 3.9 Eosinophils % (0 - 5 %) 0.1 Basophils % (0.0 - 2.0 %) 0 L Absolute Granulocytes (1.4 - 6.5 /CUMM) 22.5 H Segmented Neutrophils (42.2 - 75.2 %) 87 H Band Neutrophils (0.0 - 5.0 %) 8 H Absolute Lymphocytes (1.2 - 3.4 /CUMM) 0.8 L Lymphocytes (20.5 - 51.1 %) 2 L Monocytes (1.7 - 9.3 %) 3 Absolute Monocytes (0.10 - 0.60 /CUMM) 0.9 H Absolute Eosinophils (0.0 - 0.7 /CUMM) 0 Absolute Basophils (0.0 - 0.2 /CUMM) 0 Platelet Estimate (ADEQUATE) ADEQUATE Normocytic RBCs VERIFIED Normochromic RBCs VERIFIED PUBS MCHC (33.0 - 37.0 G/DL) 33.7 ESR Westergren (0 - 10 MM) 113 H Assessment/Plan Assessment/Plan 45-year-old Obese man with past medical history of poorly controlled diabetes type 2 who has an appointment in 05/2016 as a new patient, was admitted for diabetic right foot infection with cellulitis of right lower extremity and positive blood culture of gram positive cocci. DM management: 1. increase Levemir to 30 units twice a day; 2. adjust Novolog coverage before meals and Novolog coverage at bedtime--detail see the inpatient DM orders. 3. monitor FSGs ( goal of his FSG is between 100 and 200); will follow. Inpatient Diabetes Orders Before Each Meal: Bolus Insulin: Novolog < 80 mg/dl: no coverage 80-100 mg/dl: 6 units 101-120 mg/dl: 6 units 121-150 mg/dl: 6 units 151-200 mg/dl: 8 units 201-250 mg/dl: 10 units 251-300 mg/dl: 12 units 301-350 mg/dl: 14 units 351-400 mg/dl: 16 units > 400 mg/dl: 18 units Bedtime: Bolus Insulin: Novolog < 80 mg/dl: no coverage 80-100 mg/dl: no coverage 101-120 mg/dl: no coverage 121-150 mg/dl: no coverage 151-200 mg/dl: no coverage 201-250 mg/dl: 2 units 251-300 mg/dl: 3 units 301-350 mg/dl: 4 units 351-400 mg/dl: 5 units > 400 mg/dl: 6 units Consult Acknowledgment - Thank you for your consult request.
--- NOTE | 2016-04-30 14:12 | Cons- Infect Disease ---
General Information and HPI Consulting Request Date of Consult: 04/30/16 Requested By: TERRY MALAGON DPM Reason for Consult: Osteomyelitis right foot/Group B strep bacteremia Source of Information: patient, old records History of Present Illness: this is a 45-year-old man with diabetes, with a chronic right foot plantar ulcer for the past 6 months, seen in the emergency room 6 months prior to admission with right foot and leg swelling and discharged on Amoxicillin and Bactrim, followed by Podiatry since then with periodic debridements and treatment with at least one course of Augmentin with no problems reported, admitted on April 29 after he was sent to the emergency room by Podiatry because of several days of increased erythema and edema of the right great toe, associated with drainage from the ulcer, fevers and chills. On admission he was afebrile. Laboratory data revealed a white blood cell count of 24,000, with 87 segs and 8 bands, glucose 418, BUN/creatinine 21 and 1.1, sodium 129, normal liver enzymes, INR 1.48. X-ray of the right foot revealed scattered foci of subcutaneous emphysema along the plantar aspect of the right foot with no visible cortical destruction or significant periosteal reaction. He was taken to the OR for an open partial first ray resection of the right foot and excisional debridement and was placed on Vancomycin postoperatively. He has remained afebrile overnight. This morning blood cultures 2 were reported positive for gram-positive cocci in pairs and chains. He does report mild discomfort in the right foot but offers no other complaints at this time. Allergies/Medications Allergies: Coded Allergies: cephalexin (From KEFLEX) (Intermediate, HIVES 04/29/16) adhesive (Mild, IRRITATION 04/29/16) Home Med List: Amlodipine (Norvasc 5MG Tab) 5 MG TAB 5 MG PO DAILY HTN Aspirin (Aspirin*) 81 MG TAB.CHEW 1 TAB PO DAILY heart (Reported) Insulin Detemir (Levemir Flextouch) 100 UNIT/ML (3 ML) INSULN.PEN 25 UNITS SC BID DIABETES (Reported) Lisinopril (Prinivil) 10 MG TAB 40 MG PO DAILY HTN Lovastatin 20 MG TABLET 1 TAB PO DAILY cholesterol (Reported) Metformin Hydochloride (Glucophage 500MG Tab) 500 MG TABLET 1 TAB PO BID DIABETES Sitagliptin Phosphate (Januvia) 100 MG TABLET 1 TAB PO DAILY DIABETES ( Reported) Past History Travel History Traveled to [place] past 21 day No Medical History Blood Transfusion Hx: No Neurological: NONE EENT: NONE Cardiovascular: hypertension, hyperlipidemia Respiratory: NONE Gastrointestinal: C. 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 MOTHER (diverticulitis). BROTHER (diabetes). Psychosocial History Where Do You Live? Home Services at Home: None Smoking Status: Never Smoked ETOH Use: occasional use Illicit Drug Use: denies illicit drug use Functional Ability ADLs Independent: dressing, eating, toileting, bathing. Review of Systems Review of Systems All Other Systems: Reviewed and Negative Exam & Diagnostic Data Last 24 Hrs of Vital Signs/I&O Vital Signs Date Time Temp Pulse Resp B/P Pulse O2 O2 Flow FiO2 Ox Delivery Rate 04/30 1004 127 136/78 04/30 1004 127 136/78 04/30 0648 95 Room Air 04/30 0638 97.8 119 23 138/72 97 Nasal Cannula 04/30 0000 97 Nasal 2.0L Cannula 04/29 2200 99.1 108 24 118/82 97 Nasal 2.0L Cannula 04/29 1820 99.2 112 16 144/75 99 Room Air 04/29 1749 98 Room Air 04/29 1636 97.9 100 20 150/85 98 Room Air Intake & Output 04/30 1600 04/30 0800 04/30 0000 Intake Total 300 Output Total Balance 300 Intake, IV 300 Patient 320 lb Weight Physical Exam Other Physical Findings: He is awake and alert in no acute distress. He is afebrile. Skin reveals no rash. HEENT exam is negative. Neck is supple with no adenopathy. Lungs are clear. Heart regular rhythm with no murmur. Abdomen is obese, soft, nontender with positive bowel sounds. Back no CVA tenderness. Extremities right foot dressing intact; left foot with 2+ pulses.. Neuro is without focality. Last 24 Hours of Lab Results: Laboratory Tests 04/30 04/30 04/29 0823 0705 1735 Chemistry Sodium (137 - 145 mmol/L) 129 L Potassium (3.5 - 5.1 mmol/L) 4.3 Chloride (98 - 107 mmol/L) 92 L Carbon Dioxide (22 - 30 mmol/L) 21 L Anion Gap (5 - 16) 16 BUN (9 - 20 mg/dL) 28 H Creatinine (0.7 - 1.2 mg/dL) 1.5 H Estimated GFR (>60 ml/min) 50 L BUN/Creatinine Ratio (7 - 25 %) 18.7 Glucose (65 - 99 mg/dL) 374 H Hemoglobin A1c Pending Lactic Acid (0.7 - 2.1 mmol/L) 1.8 Magnesium (1.6 - 2.3 mg/dL) 1.6 Troponin I (<0.11 ng/ml) < 0.01 Hematology CBC w Diff MAN DIFF ORDERED WBC (4.8 - 10.8 /CUMM) 23.3 H RBC (4.70 - 6.10 /CUMM) 4.21 L Hgb (14.0 - 18.0 G/DL) 12.8 L Hct (42 - 52 %) 38.1 L MCV (80.0 - 94.0 FL) 90.5 MCH (27.0 - 31.0 PG) 30.4 RDW (11.5 - 14.5 %) 13.0 Plt Count (130 - 400 /CUMM) 276 MPV (7.4 - 10.4 FL) 9.1 Gran % (42.2 - 75.2 %) 91.6 H Lymphocytes % (20.5 - 51.1 %) 3.9 L Monocytes % (1.7 - 9.3 %) 4.3 Eosinophils % (0 - 5 %) 0 Basophils % (0.0 - 2.0 %) 0.2 Absolute Granulocytes (1.4 - 6.5 /CUMM) 21.4 H Segmented Neutrophils (42.2 - 75.2 %) 71 Band Neutrophils (0.0 - 5.0 %) 16 H Absolute Lymphocytes (1.2 - 3.4 /CUMM) 0.9 L Lymphocytes (20.5 - 51.1 %) 7 L Monocytes (1.7 - 9.3 %) 5 Absolute Monocytes (0.10 - 0.60 /CUMM) 1.0 H Absolute Eosinophils (0.0 - 0.7 /CUMM) 0 Absolute Basophils (0.0 - 0.2 /CUMM) 0.1 Myelocytes (0 - 0 %) 1 H Platelet Estimate (ADEQUATE) VERIFIED BY SMEAR Normocytic RBCs VERIFIED Normochromic RBCs VERIFIED PUBS MCHC (33.0 - 37.0 G/DL) 33.6 02 1735 Chemistry Sodium (137 - 145 mmol/L) 129 L Potassium (3.5 - 5.1 mmol/L) 4.3 Chloride (98 - 107 mmol/L) 89 L Carbon Dioxide (22 - 30 mmol/L) 23 Anion Gap (5 - 16) 18 H BUN (9 - 20 mg/dL) 21 H Creatinine (0.7 - 1.2 mg/dL) 1.1 Estimated GFR (>60 ml/min) > 60 BUN/Creatinine Ratio (7 - 25 %) 19.1 Glucose (65 - 99 mg/dL) 418 H Calcium (8.4 - 10.2 mg/dL) 9.6 Total Bilirubin (0.2 - 1.3 mg/dL) 0.9 AST (17 - 59 U/L) 14 L ALT (21 - 72 U/L) 22 Alkaline Phosphatase (< 127 U/L) 90 Total Protein (6.3 - 8.2 g/dL) 7.2 Albumin (3.5 - 5.0 g/dL) 3.2 L Globulin (1.9 - 4.2 gm/dL) 4.0 Albumin/Globulin Ratio (1.1 - 2.2 %) 0.8 L Coagulation PT (9.4 - 12.5 SEC) 15.5 H INR (0.90 - 1.17) 1.48 H APTT (25 - 37 SEC) 32 Hematology CBC w Diff MAN DIFF ORDERED WBC (4.8 - 10.8 /CUMM) 24.2 H RBC (4.70 - 6.10 /CUMM) 4.60 L Hgb (14.0 - 18.0 G/DL) 14.0 Hct (42 - 52 %) 41.6 L MCV (80.0 - 94.0 FL) 90.5 MCH (27.0 - 31.0 PG) 30.5 RDW (11.5 - 14.5 %) 12.8 Plt Count (130 - 400 /CUMM) 276 MPV (7.4 - 10.4 FL) 8.4 Gran % (42.2 - 75.2 %) 92.8 H Lymphocytes % (20.5 - 51.1 %) 3.2 L Monocytes % (1.7 - 9.3 %) 3.9 Eosinophils % (0 - 5 %) 0.1 Basophils % (0.0 - 2.0 %) 0 L Absolute Granulocytes (1.4 - 6.5 /CUMM) 22.5 H Segmented Neutrophils (42.2 - 75.2 %) 87 H Band Neutrophils (0.0 - 5.0 %) 8 H Absolute Lymphocytes (1.2 - 3.4 /CUMM) 0.8 L Lymphocytes (20.5 - 51.1 %) 2 L Monocytes (1.7 - 9.3 %) 3 Absolute Monocytes (0.10 - 0.60 /CUMM) 0.9 H Absolute Eosinophils (0.0 - 0.7 /CUMM) 0 Absolute Basophils (0.0 - 0.2 /CUMM) 0 Platelet Estimate (ADEQUATE) ADEQUATE Normocytic RBCs VERIFIED Normochromic RBCs VERIFIED PUBS MCHC (33.0 - 37.0 G/DL) 33.7 ESR Westergren (0 - 10 MM) 113 H Last 24 Hours of Ramin Results: Blood cultures 2 April 29 positive for gram-positive cocci in pairs and chains OR culture April 29 labeled right first toe positive for light growth of gram negative rods and moderate growth of beta strep group B OR culture April 29 labeled right first toe bone pending Diagnostic Data Recent Imaging Findings: X-ray of the right foot April 29 reveals scattered foci of subcutaneous emphysema along the plantar aspect of the right foot with no visible cortical destruction or significant periosteal reaction Assessment/Plan Assessment/Plan Impression: This is a 45-year-old diabetic man with a six-month history of a right foot plantar ulcer admitted on April 29 with increasing swelling and erythema of the right great toe, found to be afebrile with a marked leukocytosis, now status post right great toe amputation, with blood cultures positive for gram-positive cocci in pairs and chains. He presumably has osteomyelitis of the right great toe, complicated by cellulitis and sepsis, and must consider the possibility of residual osteomyelitis of the right foot. This would require a prolonged course of IV antibiotics directed against the organisms isolated from the OR cultures. He reports an allergy to Keflex, though he tolerated this antibiotic after his last hospitalization one year prior to admission, and he has tolerated, more recently, Amoxicillin and Augmentin; therefore feel that his antibiotics can be adjusted. He is scheduled for a return to the OR in the a.m. for further debridement. His increased creatinine today may be prerenal secondary to dehydration but must also consider sepsis and obstruction. Suggestion: 1. Follow-up final OR and blood cultures 2. Ensure adequate IV fluids 3. Bladder scan to rule out urinary retention 4. Further evaluation of his kidneys, for example renal ultrasound, if creatinine does not normalize 5. Await return to the OR in the a.m. for further debridement 6. Discontinue Vancomycin 7. Begin Unasyn 3 g IV every 8 hours Consult Acknowledgment - Thank you for your consult request.
[2016-04-30 14:45] VITALS: BP 132/76
--- NOTE | 2016-04-30 17:00 | PN- Podiatry ---
Subjective Subjective: Patient seen at bedside without any new acute complaints. Patient admits to minimal pain right foot. Patient states that he has been afebrile overnight. Denies nausea or vomiting fever chills. Objective Vital Signs and I&Os Vital Signs Date Time Temp Pulse Resp B/P Pulse O2 O2 Flow FiO2 Ox Delivery Rate 04/30 1445 98.9 125 22 132/76 95 04/30 1004 127 136/78 04/30 1004 127 136/78 04/30 0648 95 Room Air 04/30 0638 97.8 119 23 138/72 97 Nasal Cannula 04/30 0000 97 Nasal 2.0L Cannula 04/29 2200 99.1 108 24 118/82 97 Nasal 2.0L Cannula 04/29 1820 99.2 112 16 144/75 99 Room Air 04/29 1749 98 Room Air Intake & Output 04/30 1600 04/30 0800 04/30 0000 04/29 1600 04/29 0800 04/29 0000 Intake Total 2000 300 Output Total Balance 2000 300 Intake, IV 800 300 Intake, Oral 1200 Patient 320 lb Weight Physical Exam: Impression right foot clean dry and intact. Some persistent edema and erythema noted to the right lower extremity. Assessment/Plan Assessment/Plan Right foot gas gangrene with sepsis. Continue IV antibiotics per ID recommendations. Continue glucose management per medicine and endocrine recommendations. Patient nothing by mouth tonight for revision washout and wound VAC tomorrow. Core Measures/Miscellaneous Venous Thromboembolism VTE Risk Factors: Age > 40, Obesity, Surgery VTE Contraindications: No Contraindications VTE Prophylaxis Ordered Inpt: Pharm- Heparin VTE Diagnosis: No Beta Rome Is Beta Rome a Home Med? No Antibiotics Is Patient on Antibiotics? Yes If Yes: infection Attending MD Review Statement Attending Statement Attending MD Statement: examined this patient
[2016-04-30 22:28] VITALS: BP 130/70
[2016-05-01 02:57] VITALS: BP 126/70
[2016-05-01 06:54] VITALS: BP 126/70
--- NOTE | 2016-05-01 07:53 | PN- Medicine Consult ---
ELIER NAILS 05/01/16 0753: Assessment/Plan Assessment/Plan Assessment: This is a 45-year-old Obese man with past medical history of poorly controlled diabetes, hypertension, chronic nonhealing ulcer of plantar aspect of his right foot status post multiple debridements in past by Dr. Dowd, history of multi loculated abscess in posterior neck status post I&D in 2016, history of C. difficile and obstructive sleep apnea not using CPAP anymore. 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 He was admitted for debridement and IV antibiotics and today is day two post procedure. Plan: Sepsis secondary to chronic nonhealing ulcer of right foot now with cellulitis and gas gangrene status post excisional debridement and first ray resection right foot. He was tachycardic with WBC count 24.2 with 8 bands. Patient febrile overnight with temperature as high as 102.3. Leukocytosis is decreasing today at 19,000, started on IV Unasyn yesterday we'll continue with the antibiotic. The tachycardia has resolved and patient is on maintenance fluid at 75 mL per hour. Shunt is going for subsequent debridement in the or today. Acute kidney injury This morning the patient has increased creatinine of 1.5 from 1.1 on April 29 , today May 01 creatinine is 1.9 and also increasing BUN to 40. There is no record of urine output overnight instructed the nurse to measure urine. Patient is producing very small amount of urine and is not compliant with measuring his urine. However bladder scans has not found any urine in the bladder. Will get nephro consult and renal ultrasound to rule out an obstruction. History of poorly controlled diabetes mellitus Patient started on diabetic diet and is on insulin sliding scale. HbA1c results still pending, follow-up. Patient follows with Dr. Azul thank you for recommendations. Continue with Accu-Cheks and insulin. Follow-up endocrinology consult recommendations. History of hypertension Patient has history of hypertension he is on amlodipine 5 mg daily. Overnight blood pressure has remained stable with diastolic in the 70s and a systolic of 108 to 126. Problem List: 1. Foot infection 2. Cellulitis of right foot 3. Sepsis 4. Acute hyperglycemia Subjective Subjective: Reviewed the patient lying comfortably on the bed he reports that he has not slept well because he slept most of the afternoon yesterday. Reports mild pain on the right lower limb which responds well to pain medications. Review of Systems Constitutional: Reports: fever. Denies: chills. Cardiovascular: Denies: chest pain, palpitations. Respiratory: Denies: cough, short of breath. Gastrointestinal: Denies: abdominal pain, nausea, vomiting. Genitourinary: Denies: no symptoms. Musculoskeletal: Reports: see HPI. Comments: All other systems reviewed and are negative Objective Last 24 Hrs of Vital Signs/I&O Vital Signs Date Time Temp Pulse Resp B/P Pulse O2 O2 Flow FiO2 Ox Delivery Rate 05/01 0854 98.6 92 18 108/70 96 Room Air 05/01 0843 92 108/70 05/01 0654 98.1 94 22 126/70 97 Room Air 05/01 0257 98.0 93 22 126/70 97 Room Air 05/01 0000 Room Air 04/30 2350 98.8 04/30 2250 101.7 04/30 2228 102.3 108 22 130/70 92 Room Air 04/30 2151 102.3 04/30 1445 98.9 125 22 132/76 95 Intake & Output 05/01 1600 05/01 0800 05/01 0000 Intake Total 1060 1800 Output Total 100 Balance 960 1800 Intake, IV 700 1200 Intake, Oral 360 600 Output, Urine 100 Physical Exam General Appearance: no apparent distress, alert Head: atraumatic Ears, Nose, Throat: normal pharynx Neck: supple Cardiovascular: regular rate/rhythm Respiratory: normal breath sounds, chest non-tender Abdomen: normal bowel sounds, soft, non-tender Current Medications: Current Medications Sig/Angela Start time Last Medication Dose Route Stop Time Status Admin Acetaminophen 1,000 MG ONCE ONE 04/30 2345 DC N/A 1 UNIT IV 04/30 2359 Acetaminophen 650 MG ONCE ONE 04/30 2200 DC 04/30 PO 04/30 2201 2151 Acetaminophen 650 MG Q6-PRN PRN 04/29 2014 AC PO Amlodipine Besylate 5 MG DAILY 04/30 1000 AC 05/01 PO 0843 Ampicillin Sodium/ 3,000 MG Q8H 05/01 0200 AC 05/01 Sulbactam Sodium IV 0844 Sodium Chloride 100 ML Ampicillin Sodium/ 3,000 MG Q8 04/30 1445 DC 04/30 Sulbactam Sodium IV 1759 Sodium Chloride 100 ML Aspirin 81 MG DAILY 04/30 1000 DC 04/30 PO 1004 Atorvastatin Calcium 20 MG DAILY 04/30 1000 AC 05/01 PO 0843 Dextrose/Sodium 1,000 ML Q20H 04/30 2130 DC 04/30 Chloride IV 2244 Enoxaparin Sodium 40 MG DAILY 04/30 1000 AC 04/30 SC 0918 Insulin Aspart 0 Q4 05/01 0830 AC 05/01 SC 1115 Insulin Aspart 0 TIDAC/HS 04/29 2245 DC 04/30 PA 1639 Insulin Detemir 30 UNITS BID 05/01 2200 AC PA Insulin Detemir 15 UNITS 1000 05/01 1000 DC 05/01 SC 05/01 1001 0844 Insulin Detemir 30 UNITS BID 04/30 1000 DC 04/30 PA 2150 Insulin Human Regular 0 Q6 04/30 2359 DC 05/01 SC 0635 Lisinopril 40 MG DAILY 04/30 1000 AC 05/01 PO 0843 Oxycodone HCl 5 MG Q4-PRN PRN 04/29 2030 AC 05/01 PO 0843 Patient Medication 1 ED .STK-MED ONE 05/01 1400 ME Teaching ED 05/01 1401 Polyethylene Glycol 17 GM DAILY 04/30 1145 AC 05/01 PO 0843 Sodium Chloride 1,000 ML Q13H 05/01 0830 AC 05/01 IV 0844 Sodium Chloride 500 ML BOLUS ONE 05/01 0545 DC 05/01 IV 05/01 0644 0625 Sodium Chloride 1,000 ML Q20H 04/30 1400 DC 04/30 IV 05/01 1959 1639 Vancomycin HCl 1,500 MG Q12H 04/29 2200 DC 04/30 Sodium Chloride 250 ML IV 1004 Results Last 24 Hrs Lab/Ramin Results: Laboratory Tests 05/01/16 1250: Ur Random Creatinine 205.6, Ur Random Sodium < 5 L, Ur Random Potassium 56.1, Fraction Sodium Excret 05/01/16 0640: Anion Gap 13, Estimated GFR 38 L, BUN/Creatinine Ratio 21.6, CBC w Diff MAN DIFF ORDERED, RBC 3.81 L, MCV 90.5, MCH 30.6, RDW 13.3, MPV 9.3, Segmented Neutrophils 65, Band Neutrophils 22 H, Lymphocytes 6 L, Monocytes 7, Platelet Estimate VERIFIED BY SMEAR, Normocytic RBCs VERIFIED, Normochromic RBCs VERIFIED , PUBS MCHC 33.9 GINGER TSE MD 05/01/16 1427: Attending MD Review Statement Attending Sign Off Attending Cosign Statement: I have: examined this patient, reviewed [employer] EMR data, agreed w/resident/PA/CITY MANAGER , amended to note. Other Findings: The patient was seen and discussed with house staff. Agree with the plan of care as outlined.
[2016-05-01 07:54] LABS: HEMATOCRIT 34.5 % (42-52); MEAN CORPUSCULAR HGB 30.6 PG (27.0-31.0); MEAN CORPUSCULAR HGB CONC 33.9 G/DL (33.0-37.0); MEAN CORPUSCULAR VOLUME 90.5 FL (80.0-94.0); MEAN PLATELET VOLUME 9.3 FL (7.4-10.4); PLATELET COUNT 259 /CUMM (130-400); RBC DISTRIBUTION WIDTH 13.3 % (11.5-14.5); RED BLOOD CELL CT 3.81 /CUMM (4.70-6.10); WHITE BLOOD CELL COUNT 19.5 /CUMM (4.8-10.8)
[2016-05-01 08:54] VITALS: BP 108/70
--- NOTE | 2016-05-01 09:04 | PN- Diabetes ---
Assessment/Plan Assessment: 45-year-old Obese man with past medical history of poorly controlled diabetes type 2 with HbA1c of 12%, was admitted for diabetic right foot infection with cellulitis of right lower extremity and positive blood culture of gram positive cocci. He was put on Levemir 30 units twice a day, Novolog coverage before meals and Novolog coverage at bedtime. His FSGs were 361, 354, 330, 327, 267. He still had a temperature of 102.3 last night. He is scheduled to go to OR again this afternoon. His urine output has been low and he received NS bolus. Am lab showed Cr of 1.9. Now he is on D5 1/2 NS at 75 ml/hour. He received Levemir 15 units this morning as he has been kept NPO. Currently he is on RISS every 6 hours coverage. His FSG this morning was 334. Plan: 1. I have changed IVF to NS at 75 ml/hour as his FSG this morning was 334 and his Sodium/ chloride were low. 2. D/C RISS; 3. start Novolog coverage every 4 hours while he is NPO-- detail see the inpatient DM order. 4. monitior FSGs,urine output, electrolytes and renal function. 5. after he is back from OR and ready to eat, please restart Levemir 30 units twice a day and previous Novolog coverage before meal and Novolog coverage at bedtime. Please call endocrine if there is any question. Thanks! Inpatient Diabetes Orders Every 4 Hours: Bolus Insulin: Novolog < 80 mg/dl: no coverage 80-100 mg/dl: no coverage 101-120 mg/dl: no coverage 121-150 mg/dl: no coverage 151-200 mg/dl: 2 units 201-250 mg/dl: 4 units 251-300 mg/dl: 6 units 301-350 mg/dl: 8 units 351-400 mg/dl: 10 units > 400 mg/dl: 12 units Subjective Subjective: He spiked fever of 102.3 last night. He is waiting to go to OR this afternoon. Objective Last 24 Hrs of Vital Signs/I&O Vital Signs Date Time Temp Pulse Resp B/P Pulse O2 O2 Flow FiO2 Ox Delivery Rate 05/01 0854 98.6 92 18 108/70 96 Room Air 05/01 0843 92 108/70 05/01 0654 98.1 94 22 126/70 97 Room Air 05/01 0257 98.0 93 22 126/70 97 Room Air 05/01 0000 Room Air 04/30 2350 98.8 04/30 2250 101.7 04/30 2228 102.3 108 22 130/70 92 Room Air 04/30 2151 102.3 04/30 1445 98.9 125 22 132/76 95 04/30 1004 127 136/78 04/30 1004 127 136/78 Intake & Output 05/01 1600 05/01 0800 05/01 0000 Intake Total 1060 1800 Output Total 100 Balance 960 1800 Intake, IV 700 1200 Intake, Oral 360 600 Output, Urine 100 Findings Pertinent Lab/Ramin Results: Laboratory Tests 05/01 0640 Chemistry Sodium (137 - 145 mmol/L) 127 L Potassium (3.5 - 5.1 mmol/L) 4.0 Chloride (98 - 107 mmol/L) 92 L Carbon Dioxide (22 - 30 mmol/L) 22 Anion Gap (5 - 16) 13 BUN (9 - 20 mg/dL) 41 H Creatinine (0.7 - 1.2 mg/dL) 1.9 H Estimated GFR (>60 ml/min) 38 L BUN/Creatinine Ratio (7 - 25 %) 21.6 Hematology CBC w Diff MAN DIFF ORDERED WBC (4.8 - 10.8 /CUMM) 19.5 H RBC (4.70 - 6.10 /CUMM) 3.81 L Hgb (14.0 - 18.0 G/DL) 11.7 L Hct (42 - 52 %) 34.5 L MCV (80.0 - 94.0 FL) 90.5 MCH (27.0 - 31.0 PG) 30.6 RDW (11.5 - 14.5 %) 13.3 Plt Count (130 - 400 /CUMM) 259 MPV (7.4 - 10.4 FL) 9.3 Segmented Neutrophils (42.2 - 75.2 %) 65 Band Neutrophils (0.0 - 5.0 %) 22 H Lymphocytes (20.5 - 51.1 %) 6 L Monocytes (1.7 - 9.3 %) 7 Platelet Estimate (ADEQUATE) VERIFIED BY SMEAR Normocytic RBCs VERIFIED Normochromic RBCs VERIFIED PUBS MCHC (33.0 - 37.0 G/DL) 33.9
--- NOTE | 2016-05-01 12:49 | PN- Infect Dx ---
Subjective Subjective: MAXIMUM TEMPERATURE 102.3. He notes mild discomfort in the right foot. Bladder scan yesterday afternoon revealed 69 mL of urine and 167 mL this morning. Objective Last 24 Hrs of Vital Signs/I&O Vital Signs Date Time Temp Pulse Resp B/P Pulse O2 O2 Flow FiO2 Ox Delivery Rate 05/01 0854 98.6 92 18 108/70 96 Room Air 05/01 0843 92 108/70 05/01 0654 98.1 94 22 126/70 97 Room Air 05/01 0257 98.0 93 22 126/70 97 Room Air 05/01 0000 Room Air 04/30 2350 98.8 04/30 2250 101.7 04/30 2228 102.3 108 22 130/70 92 Room Air 04/30 2151 102.3 04/30 1445 98.9 125 22 132/76 95 Intake & Output 05/01 1600 05/01 0800 05/01 0000 Intake Total 1060 1800 Output Total 100 Balance 960 1800 Intake, IV 700 1200 Intake, Oral 360 600 Output, Urine 100 Physical Exam Other Physical Findings: He appears comfortable in no acute distress Lungs are clear Heart regular rhythm with no murmur Extremities right foot dressing intact Results Last 24 Hours of Lab Results: Laboratory Tests 05/01 0640 Chemistry Sodium (137 - 145 mmol/L) 127 L Potassium (3.5 - 5.1 mmol/L) 4.0 Chloride (98 - 107 mmol/L) 92 L Carbon Dioxide (22 - 30 mmol/L) 22 Anion Gap (5 - 16) 13 BUN (9 - 20 mg/dL) 41 H Creatinine (0.7 - 1.2 mg/dL) 1.9 H Estimated GFR (>60 ml/min) 38 L BUN/Creatinine Ratio (7 - 25 %) 21.6 Hematology CBC w Diff MAN DIFF ORDERED WBC (4.8 - 10.8 /CUMM) 19.5 H RBC (4.70 - 6.10 /CUMM) 3.81 L Hgb (14.0 - 18.0 G/DL) 11.7 L Hct (42 - 52 %) 34.5 L MCV (80.0 - 94.0 FL) 90.5 MCH (27.0 - 31.0 PG) 30.6 RDW (11.5 - 14.5 %) 13.3 Plt Count (130 - 400 /CUMM) 259 MPV (7.4 - 10.4 FL) 9.3 Segmented Neutrophils (42.2 - 75.2 %) 65 Band Neutrophils (0.0 - 5.0 %) 22 H Lymphocytes (20.5 - 51.1 %) 6 L Monocytes (1.7 - 9.3 %) 7 Platelet Estimate (ADEQUATE) VERIFIED BY SMEAR Normocytic RBCs VERIFIED Normochromic RBCs VERIFIED PUBS MCHC (33.0 - 37.0 G/DL) 33.9 Last 24 Hours of Ramin Results: Blood cultures 2 April 29 positive for Group B strep OR cultures April 29 labeled right great toe bone and soft tissue positive for Group B strep and Escherichia coli sensitive to all antibiotics Assessment/Plan Impression: Fevers overnight most likely secondary to his right foot status post right great toe amputation 2 days ago for osteomyelitis secondary to Group B strep and Escherichia coli with secondary sepsis secondary to Group B strep. He is currently on Unasyn and is scheduled for return to the OR later today for further debridement. His creatinine continues to increase, with post void residuals low, and his renal failure may be secondary to sepsis versus medications (status post several days of NSAID's prior to admission and several doses of Vancomycin initially on this admission). Suggestion: 1. Renal ultrasound 2. Renal consultation 3. Await return to the OR later today 4. Continue Unasyn
--- NOTE | 2016-05-01 14:16 | Operative Report ---
Operative/Inv Procedure Report Surgery Date: 05/01/16 Name of Procedure: 1 open incision and drainage deep to the deep fascia with exposure of the extensor and flexor tendon and tendon sheath multiple sites right foot 2 revisional partial first ray resection right foot 3 intraoperative administration of negative pressure wound therapy 4 excisional debridement Pre-Operative Diagnosis: 1 open necrotic wound right foot 2 osteomyelitis right foot 3 diabetic peripheral neuropathy Post-Operative Diagnosis: The same Estimated Blood Loss: less than 50ml Surgeon/Nuclear Process Engineer: TERRY MALAGON DPM Anesthesia: moderate sedation, block Operative/Procedure Note Note: Sensitivities informed consent the patient was brought to the operating room and placed on the operating table in the supine position. The patient isn't securely fastened to the operating table utilizing safety belt. After administration of IV sedation, 10 mL of 0.5% Marcaine plain was infiltrated about the patient's right ankle. Right foot and ankle then scrubbed prepped and draped in usual aseptic manner. Attention directed the right foot, where a large full-thickness necrotic was identified. A 15 blade was utilized sharply revised skin margins. The dissection was then carried down deep to the deep fascia with exposure of the flexor tendon and tendon sheath multiple sites right foot. All necrotic and infected tissue sharply evacuated from the wound bed. Dissection was then carried down to the periosteum overlying the distal stump of the first metatarsal. This was incised reflected and a sagittal bone saw was utilized to resect the distal 2 cm of metatarsal. The specimen was sent for pathologic inspection. The foot was then irrigated with 3 L normal sterile saline fissure 50,000 units of bacitracin. Following this the foot was redraped and the surgeon's top gloves were exchanged for clean gloves. Any bleeding vessels identified were cauterized or ligated as encountered. Negative pressure wound therapy was then placed about the wound bed. Foot was then dressed with Kerlix and an Naldo wrap. The patient was noted to tolerate both procedure and anesthesia well and the patient was transported from the operating room to recovery with vital signs stable.
--- NOTE | 2016-05-01 14:56 | Cons- Nephrology ---
General Information and HPI Consulting Request Date of Consult: 05/01/16 Requested By: TERRY MALAGON DPM Reason for Consult: KEE Source of Information: patient, old records Exam Limitations: no limitations History of Present Illness: 45 yr old WM w mult med problems including morbid obesity, DM, & HTN admit w fever, rigors, & worsening R foot pain/ulcer. Required surgical debridement & initiation IV antibiotics, including Vanco. Normal baseline renal function w Cr 0.6-0.8 last yr but elevated 1.1 on admit increasing 1.9 today w/o oliguria. On ACEI at home that was continued here & also taking NSAIDS prior to admit. No vomiting or diarrhea but po intake poor. No overt hypotension but systolic down to low 100s; no IV contrast. Denies urinary retention sx. No hx stones or UTIs; denies hx abnormal u/a but has documented microalbuminuria in old record. Currently w/o SOB. Allergies/Medications Allergies: Coded Allergies: cephalexin (From KEFLEX) (Intermediate, HIVES 04/29/16) adhesive (Mild, IRRITATION 04/29/16) Home Med List: Amlodipine (Norvasc 5MG Tab) 5 MG TAB 5 MG PO DAILY HTN Aspirin (Aspirin*) 81 MG TAB.CHEW 1 TAB PO DAILY heart (Reported) Insulin Detemir (Levemir Flextouch) 100 UNIT/ML (3 ML) INSULN.PEN 25 UNITS SC BID DIABETES (Reported) Lisinopril (Prinivil) 10 MG TAB 40 MG PO DAILY HTN Lovastatin 20 MG TABLET 1 TAB PO DAILY cholesterol (Reported) Metformin Hydochloride (Glucophage 500MG Tab) 500 MG TABLET 1 TAB PO BID DIABETES Sitagliptin Phosphate (Januvia) 100 MG TABLET 1 TAB PO DAILY DIABETES ( Reported) Current Medications: Current Medications Sig/Angela Start time Last Medication Dose Route Stop Time Status Admin Acetaminophen 1,000 MG ONCE ONE 04/305 DC N/A 1 UNIT IV 04/30 2359 Acetaminophen 650 MG ONCE ONE 04/300 DC 04/30 PO 04/30 2200 2151 Acetaminophen 650 MG Q6-PRN PRN 04/29 2014 AC PO Amlodipine Besylate 5 MG DAILY 04/30 1000 AC 05/01 PO 0843 Ampicillin Sodium/ 3,000 MG Q8H 05/01 0200 AC 05/01 Sulbactam Sodium IV 0844 Sodium Chloride 100 ML Ampicillin Sodium/ 3,000 MG Q8 04/30 1445 DC 04/30 Sulbactam Sodium IV 1759 Sodium Chloride 100 ML Aspirin 81 MG DAILY 04/30 1000 DC 04/30 PO 1004 Atorvastatin Calcium 20 MG DAILY 04/30 1000 AC 05/01 PO 0843 Dextrose/Sodium 1,000 ML Q20H 04/30 2130 DC 04/30 Chloride IV 2244 Enoxaparin Sodium 40 MG DAILY 04/30 1000 AC 04/30 CT 0918 Insulin Aspart 0 Q4 05/01 0830 AC 05/01 CT 1115 Insulin Aspart 0 TIDAC/HS 04/29 2245 DC 04/30 CT 1639 Insulin Detemir 30 UNITS BID 05/[address] Insulin Detemir 15 UNITS 1000 05/01 1000 DC 05/01 SC 05/01 1001 0844 Insulin Detemir 30 UNITS BID 04/30 1000 DC 04/30 CT 2150 Insulin Human Regular 0 Q6 04/30 2359 DC 05/01 CT 0635 Lisinopril 40 MG DAILY 04/30 1000 AC 05/01 PO 0843 Oxycodone HCl 5 MG Q4-PRN PRN 04/29 2030 AC 05/01 PO 0843 Patient Medication 1 ED .STK-MED ONE 05/01 1400 MI Teaching ED 05/01 1401 Polyethylene Glycol 17 GM DAILY 04/30 1145 AC 05/01 PO 0843 Sodium Chloride 1,000 ML Q13H 05/01 0830 AC 05/01 IV 0844 Sodium Chloride 500 ML BOLUS ONE 05/01 0545 DC 05/01 IV 05/01 0644 0625 Sodium Chloride 1,000 ML Q20H 04/30 1400 DC 04/30 IV 05/01 1959 1639 Review of Systems Review of Systems Constitutional: Denies: chills, fever. EENTM: Denies: no symptoms. Cardiovascular: Denies: no symptoms. Respiratory: Denies: no symptoms. GI: Denies: no symptoms. Genitourinary: Denies: no symptoms. Musculoskeletal: Reports: see HPI. Skin: Denies: no symptoms. Neurological/Psychological: Denies: no symptoms. Hematologic/Endocrine: Denies: no symptoms. Immunologic/Allergic: Denies: no symptoms. All Other Systems: Reviewed and Negative Past History Travel History Traveled to [place] past 21 day No Medical History Blood Transfusion Hx: No Neurological: NONE EENT: NONE Cardiovascular: hypertension, hyperlipidemia Respiratory: NONE Gastrointestinal: C. difficile Hepatic: NONE Renal: NONE Musculoskeletal: NONE Psychiatric: NONE Endocrine: diabetes, obesity Blood Disorders: NONE Cancer(s): NONE STUDENT COUNSELLOR/Reproductive: NONE Surgical History Surgical History: appendectomy, status post I&D of a posterior neck abscess L SHOULDER SX Family History Relations & Conditions If Any: FH: diabetes mellitus Relation not specified Psychosocial History Where Do You Live? Home Services at Home: None Smoking Status: Never Smoked ETOH Use: occasional use Illicit Drug Use: denies illicit drug use Functional Ability ADLs Independent: dressing, eating, toileting, bathing. Exam & Diagnostic Data Vital Signs and I&O Vital Signs Date Time Temp Pulse Resp B/P Pulse O2 O2 Flow FiO2 Ox Delivery Rate 05/01 0854 98.6 92 18 108/70 96 Room Air 05/01 0843 92 108/70 05/01 0654 98.1 94 22 126/70 97 Room Air 05/01 0257 98.0 93 22 126/70 97 Room Air 05/01 0000 Room Air 04/30 2350 98.8 04/30 2250 101.7 04/30 2228 102.3 108 22 130/70 92 Room Air 04/30 2151 102.3 04/30 1445 98.9 125 22 132/76 95 Intake & Output 05/01 1600 05/01 0400 04/30 1600 04/30 0400 04/29 1600 04/29 0400 Intake Total 1060 1800 2300 Output Total 100 Balance 960 1800 2300 Intake, IV 700 1200 1100 Intake, Oral 642 094 7276 Output, Urine 100 Patient 320 lb Weight Physical Exam General Appearance: well developed/nourished, no apparent distress Head: atraumatic, normal appearance Eyes: Bilateral: normal appearance. Ears, Nose, Throat: normal ENT inspection Neck: normal inspection, supple Respiratory: normal breath sounds, no respiratory distress, quiet respiration, lungs clear Cardiovascular: regular rate/rhythm Gastrointestinal: soft, non-tender, no organomegaly Extremities: no edema, R foot dressed Neurologic/Psych: no motor/sensory deficits, alert, oriented x 3, bowling ball molder II-XII nml as tested Skin: intact, normal color Lymphatic: no anterior cervical christina Results Pertinent Lab Results: Laboratory Tests 05/01 05/01 04/30 1250 0640 0823 Chemistry Sodium (137 - 145 mmol/L) 127 L Potassium (3.5 - 5.1 mmol/L) 4.0 Chloride (98 - 107 mmol/L) 92 L Carbon Dioxide (22 - 30 mmol/L) 22 Anion Gap (5 - 16) 13 BUN (9 - 20 mg/dL) 41 H Creatinine (0.7 - 1.2 mg/dL) 1.9 H Estimated GFR (>60 ml/min) 38 L BUN/Creatinine Ratio (7 - 25 %) 21.6 Lactic Acid (0.7 - 2.1 mmol/L) 1.8 Hematology CBC w Diff MAN DIFF ORDERED WBC (4.8 - 10.8 /CUMM) 19.5 H RBC (4.70 - 6.10 /CUMM) 3.81 L Hgb (14.0 - 18.0 G/DL) 11.7 L Hct (42 - 52 %) 34.5 L MCV (80.0 - 94.0 FL) 90.5 MCH (27.0 - 31.0 PG) 30.6 RDW (11.5 - 14.5 %) 13.3 Plt Count (130 - 400 /CUMM) 259 MPV (7.4 - 10.4 FL) 9.3 Segmented Neutrophils (42.2 - 75.2 %) 65 Band Neutrophils (0.0 - 5.0 %) 22 H Lymphocytes (20.5 - 51.1 %) 6 L Monocytes (1.7 - 9.3 %) 7 Platelet Estimate (ADEQUATE) VERIFIED BY SMEAR Normocytic RBCs VERIFIED Normochromic RBCs VERIFIED PUBS MCHC (33.0 - 37.0 G/DL) 33.9 Urines Ur Random Creatinine (mg/dL) 205.6 Ur Random Sodium (30 - 90 mmol/L) < 5 L Ur Random Potassium (mmol/L) 56.1 Fraction Sodium Excret (<1% %) 04/30 04/29 0705 1735 Chemistry Sodium (137 - 145 mmol/L) 129 L Potassium (3.5 - 5.1 mmol/L) 4.3 Chloride (98 - 107 mmol/L) 92 L Carbon Dioxide (22 - 30 mmol/L) 21 L Anion Gap (5 - 16) 16 BUN (9 - 20 mg/dL) 28 H Creatinine (0.7 - 1.2 mg/dL) 1.5 H Estimated GFR (>60 ml/min) 50 L BUN/Creatinine Ratio (7 - 25 %) 18.7 Glucose (65 - 99 mg/dL) 374 H Hemoglobin A1c (<5.7) 12.0 H Magnesium (1.6 - 2.3 mg/dL) 1.6 Troponin I (<0.11 ng/ml) < 0.01 Hematology CBC w Diff MAN DIFF ORDERED WBC (4.8 - 10.8 /CUMM) 23.3 H RBC (4.70 - 6.10 /CUMM) 4.21 L Hgb (14.0 - 18.0 G/DL) 12.8 L Hct (42 - 52 %) 38.1 L MCV (80.0 - 94.0 FL) 90.5 MCH (27.0 - 31.0 PG) 30.4 RDW (11.5 - 14.5 %) 13.0 Plt Count (130 - 400 /CUMM) 276 MPV (7.4 - 10.4 FL) 9.1 Gran % (42.2 - 75.2 %) 91.6 H Lymphocytes % (20.5 - 51.1 %) 3.9 L Monocytes % (1.7 - 9.3 %) 4.3 Eosinophils % (0 - 5 %) 0 Basophils % (0.0 - 2.0 %) 0.2 Absolute Granulocytes (1.4 - 6.5 /CUMM) 21.4 H Segmented Neutrophils (42.2 - 75.2 %) 71 Band Neutrophils (0.0 - 5.0 %) 16 H Absolute Lymphocytes (1.2 - 3.4 /CUMM) 0.9 L Lymphocytes (20.5 - 51.1 %) 7 L Monocytes (1.7 - 9.3 %) 5 Absolute Monocytes (0.10 - 0.60 /CUMM) 1.0 H Absolute Eosinophils (0.0 - 0.7 /CUMM) 0 Absolute Basophils (0.0 - 0.2 /CUMM) 0.1 Myelocytes (0 - 0 %) 1 H Platelet Estimate (ADEQUATE) VERIFIED BY SMEAR Normocytic RBCs VERIFIED Normochromic RBCs VERIFIED PUBS MCHC (33.0 - 37.0 G/DL) 33.6 04/29 1735 Chemistry Sodium (137 - 145 mmol/L) 129 L Potassium (3.5 - 5.1 mmol/L) 4.3 Chloride (98 - 107 mmol/L) 89 L Carbon Dioxide (22 - 30 mmol/L) 23 Anion Gap (5 - 16) 18 H BUN (9 - 20 mg/dL) 21 H Creatinine (0.7 - 1.2 mg/dL) 1.1 Estimated GFR (>60 ml/min) > 60 BUN/Creatinine Ratio (7 - 25 %) 19.1 Glucose (65 - 99 mg/dL) 418 H Calcium (8.4 - 10.2 mg/dL) 9.6 Total Bilirubin (0.2 - 1.3 mg/dL) 0.9 AST (17 - 59 U/L) 14 L ALT (21 - 72 U/L) 22 Alkaline Phosphatase (< 127 U/L) 90 Total Protein (6.3 - 8.2 g/dL) 7.2 Albumin (3.5 - 5.0 g/dL) 3.2 L Globulin (1.9 - 4.2 gm/dL) 4.0 Albumin/Globulin Ratio (1.1 - 2.2 %) 0.8 L Coagulation PT (9.4 - 12.5 SEC) 15.5 H INR (0.90 - 1.17) 1.48 H APTT (25 - 37 SEC) 32 Hematology CBC w Diff MAN DIFF ORDERED WBC (4.8 - 10.8 /CUMM) 24.2 H RBC (4.70 - 6.10 /CUMM) 4.60 L Hgb (14.0 - 18.0 G/DL) 14.0 Hct (42 - 52 %) 41.6 L MCV (80.0 - 94.0 FL) 90.5 MCH (27.0 - 31.0 PG) 30.5 RDW (11.5 - 14.5 %) 12.8 Plt Count (130 - 400 /CUMM) 276 MPV (7.4 - 10.4 FL) 8.4 Gran % (42.2 - 75.2 %) 92.8 H Lymphocytes % (20.5 - 51.1 %) 3.2 L Monocytes % (1.7 - 9.3 %) 3.9 Eosinophils % (0 - 5 %) 0.1 Basophils % (0.0 - 2.0 %) 0 L Absolute Granulocytes (1.4 - 6.5 /CUMM) 22.5 H Segmented Neutrophils (42.2 - 75.2 %) 87 H Band Neutrophils (0.0 - 5.0 %) 8 H Absolute Lymphocytes (1.2 - 3.4 /CUMM) 0.8 L Lymphocytes (20.5 - 51.1 %) 2 L Monocytes (1.7 - 9.3 %) 3 Absolute Monocytes (0.10 - 0.60 /CUMM) 0.9 H Absolute Eosinophils (0.0 - 0.7 /CUMM) 0 Absolute Basophils (0.0 - 0.2 /CUMM) 0 Platelet Estimate (ADEQUATE) ADEQUATE Normocytic RBCs VERIFIED Normochromic RBCs VERIFIED PUBS MCHC (33.0 - 37.0 G/DL) 33.7 ESR Westergren (0 - 10 MM) 113 H Imaging/Other Studies: FT Xray IMPRESSION: Scattered foci of subcutaneous emphysema along the plantar aspect of the right foot with an associated soft tissue ulcer along the plantar aspect of the right foot. No visible cortical destruction or significant periosteal reaction. However, please note that MRI and nuclear medicine bone scan are more sensitive in evaluating for acute changes of osteomyelitis. If clinical concern for osteomyelitis persists, consider correlation with one of these imaging studies. Assessment/Plan Assessment/Recommendations Assessment: 1. KEE: ? prerenal due to volume contraction & NSAIDs preadmit in face of ongoing RAAS interruption. Can't r/o ATN due to same factors as well as infection, vanco, & surg. Infection associated GN also possible & will send screening w/u. Nothing to suggest drug induced AIN. Will screen for obstruction & paraprotein but doubt. Needs continue volume expansion as lisonopril stopped. No current renal replacement indication. Recommendations: 1. IV NS 125 ml/hr 2. renal US 3. u/a 4. C3 & C4 5. SPEP 6. d/c lisinopril; hold amlodipine systolic <130 7. repeat chemistries in AM 8. if no improvement --> meds doses will need to adjusted, including Unasyn, Vanco, & Lovenox
[2016-05-01 15:38] VITALS: BP 132/70
--- NOTE | 2016-05-01 21:44 | ULTRASOUND REPORT ---
EXAMINATION: US RETROPERITONEAL COMPLETE (RENAL) CLINICAL INFORMATION: Decreased urine output. COMPARISON: None TECHNIQUE: Real-time imaging of the kidneys and bladder. FINDINGS: RIGHT KIDNEY: 13.4 x 7.6 x 7.6 cm (SAG x AP x TRV). The kidney is normal in size, contour, and echogenicity. Renal cortical thickness is normal. No calculi or focal parenchymal lesions. No hydronephrosis. LEFT KIDNEY: 14.9 x 8.6 x 6.6 cm (SAG x AP x TRV). The kidney is normal in size, contour, and echogenicity. Renal cortical thickness is normal. No calculi or focal parenchymal lesions. No hydronephrosis. BLADDER: Well-distended and normal. The left ureteral jet is demonstrated IMPRESSION: Normal appearance of both kidneys sonographically.
[2016-05-01 22:30] VITALS: BP 128/60
[2016-05-02 07:03] VITALS: BP 124/82
--- NOTE | 2016-05-02 11:55 | PN- Diabetes ---
Assessment/Plan Assessment: 45-year-old Obese man with past medical history of poorly controlled diabetes type 2 with HbA1c of 12%, was admitted for diabetic right foot infection with cellulitis of right lower extremity and positive blood culture of gram positive cocci. Patient states that he is eating well now. He is on Levemir 30 units twice a day along with sliding scale NovoLog starting with 6 units for a reading between 80 and 150. Fingerstick blood sugars yesterday were 313 before breakfast, 260 before lunch, 210 at supper time, and 187 at bedtime. This morning his fingerstick blood sugar is 264. The patient's renal function is improved with hydration with normal saline. Her serum sodium is also improved to 131. Plan: Suggest increase Levemir to 34 units twice a day. Since the patient is eating well now we can increase his sliding scale NovoLog to 80-150 give 8 units NovoLog, 151-200 give 10 units NovoLog, 201-250 give 12 units NovoLog, 251 at 300 give 14 units NovoLog, 301-350 give 16 units NovoLog, 351-400 give 18 units NovoLog. Continue to monitor his sugars carefully 4 times a day. Continue to hydrate carefully with normal saline at 75 mL per hour. Subjective Subjective: Feels okay Review of Systems Constitutional: Denies: chills, fever. Cardiovascular: Denies: chest pain. Respiratory: Denies: cough, short of breath. Gastrointestinal: Denies: abdominal pain. Musculoskeletal: Reports: joint pain (right foot surgical area). Objective Last 24 Hrs of Vital Signs/I&O Vital Signs Date Time Temp Pulse Resp B/P Pulse O2 O2 Flow FiO2 Ox Delivery Rate 05/02 1121 95 126/80 05/02 0703 99.5 98 24 12482 95 Room Air 05/01 2229 98.4 104 18 128/60 99 Room Air 05/01 1538 97.5 110 18 132/70 96 Room Air Intake & Output 05/02 1600 05/02 0800 05/02 0000 Intake Total 1120 775 Output Total 950 700 Balance 170 75 Intake, IV 1000 375 Intake, Oral 120 400 Output, Urine 950 700 Patient 320 lb Weight Vital Signs Date Time Temp Pulse Resp B/P Pulse O2 O2 Flow FiO2 Ox Delivery Rate 05/02 1121 95 126/80 05/02 0703 99.5 98 24 12482 95 Room Air 02/24 2230 98.4 104 18 128/60 99 Room Air 05/01 1538 97.5 110 18 132/70 96 Room Air Intake & Output 05/02 1600 05/02 0800 05/02 0000 Intake Total 1120 775 Output Total 950 700 Balance 170 75 Intake, IV 1000 375 Intake, Oral 120 400 Output, Urine 950 700 Patient 320 lb Weight Physical Exam General Appearance: alert, awake, obese Head: normal appearance Neck: normal inspection Respiratory: normal breath sounds Cardiovascular: regular rate/rhythm Abdomen: normal bowel sounds Extremities: right foot bandaged
--- NOTE | 2016-05-02 12:58 | PN- Podiatry ---
Subjective Subjective: Patient seen at bedside with no acute complaints overnight. Patient denies nausea vomiting fever chills. Patient admits to minimal pain to the right foot which is well controlled with by mouth analgesics. Objective Vital Signs and I&Os Vital Signs Date Time Temp Pulse Resp B/P Pulse O2 O2 Flow FiO2 Ox Delivery Rate 05/02 1121 95 126/80 05/02 0703 99.5 98 24 124/82 95 Room Air 05/01 2230 98.4 104 18 128/60 99 Room Air 05/01 1538 97.5 110 18 132/70 96 Room Air Intake & Output 05/02 1600 05/02 0800 05/02 0000 05/01 1600 05/01 0800 05/01 0000 Intake Total 1120 599 742 0402 1800 Output Total 950 700 300 100 Balance 170 75 186 331 8999 Intake, IV 1000 375 368 534 6866 Intake, Oral 120 400 100 360 600 Output, Urine 950 700 300 100 Patient 320 lb Weight Physical Exam: Wound VAC noted to be in place right foot. Approximately 50 mL of serosanguineous drainage noted to the canister. A dressing otherwise clean dry and intact. Assessment/Plan Assessment/Plan Osteomyelitis and cellulitis right foot. Continue IV antibiotics per ID recommendations. Continue medical management per hospitalist service. We will change his VAC likely on Wednesday in the OR. Core Measures/Miscellaneous Venous Thromboembolism VTE Risk Factors: Age > 40, Obesity, Surgery VTE Contraindications: No Contraindications VTE Prophylaxis Ordered Inpt: Pharm- Heparin VTE Diagnosis: No Beta Rome Is Beta Rome a Home Med? No Antibiotics Is Patient on Antibiotics? Yes If Yes: infection
--- NOTE | 2016-05-02 13:55 | PN- Att Addend ---
Attending Addendum Attending Brief Note 45-year-old gentleman with past medical history significant for diabetes mellitus and has been admitted with a right foot gas gangrene/osteomyelitis/ cellulitis. Dr. Wayne has been managing with his foot and has taken the patient twice to the OR. Patient was seen and examined on the bedside. Reports no active issues, no overnight fevers and blood pressure has remained stable. ID and nephrology on board. His kidney functions has been improved from 1.9 to 0.9 today. Renal ultrasound with normal bilateral kidneys with no evidence of obstruction. Diabetic regimen has been changed today as per endocrinology recommendations. We'll continue the patient on IV Unasyn as per ID recommendations. The plan is to take the patient back to the eye ER on Wednesday for changing of his VAC.
[2016-05-02 14:07] LABS: ABSOLUTE BASOPHIL COUNT 0.1 /CUMM (0.0-0.2); ABSOLUTE EOSINOPHIL COUNT 0 /CUMM (0.0-0.7); ABSOLUTE GRANULOCYTE CT 13.9 /CUMM (1.4-6.5); ABSOLUTE LYMPH COUNT 0.9 /CUMM (1.2-3.4); ABSOLUTE MONOCYTE COUNT 0.9 /CUMM (0.10-0.60); BASOPHIL % 0.9 % (0.0-2.0); EOSINOPHIL % 0.2 % (0-5); GRANULOCYTE % 87.7 % (42.2-75.2); HEMATOCRIT 33.2 % (42-52); MEAN CORPUSCULAR HGB 29.8 PG (27.0-31.0); MEAN CORPUSCULAR HGB CONC 32.9 G/DL (33.0-37.0); MEAN CORPUSCULAR VOLUME 90.7 FL (80.0-94.0); MEAN PLATELET VOLUME 9.1 FL (7.4-10.4); PLATELET COUNT 260 /CUMM (130-400); RBC DISTRIBUTION WIDTH 13.8 % (11.5-14.5); RED BLOOD CELL CT 3.66 /CUMM (4.70-6.10); WHITE BLOOD CELL COUNT 15.9 /CUMM (4.8-10.8)
[2016-05-02 15:01] VITALS: BP 128/80
[2016-05-02 22:00] VITALS: BP 140/90
[2016-05-03 06:57] VITALS: BP 134/86
--- NOTE | 2016-05-03 09:33 | PN- Infect Dx ---
Subjective Subjective: Afebrile. He notes mild pain in the right foot. Objective Last 24 Hrs of Vital Signs/I&O Vital Signs Date Time Temp Pulse Resp B/P Pulse O2 O2 Flow FiO2 Ox Delivery Rate 05/03 0657 98.4 92 24 134/86 96 Room Air 05/03 0000 95 Room Air 05/02 2200 99.6 95 22 140/90 95 Room Air 05/02 1501 98.3 97 20 128/80 95 05/02 1121 95 126/80 Intake & Output 05/03 1600 05/03 0800 05/03 0000 Intake Total 800 2100 Output Total 450 1410 Balance 350 690 Intake, IV 600 600 Intake, Oral 200 1500 Number 1 Bowel Movements Output, 10 Drainage Output, Urine 450 1400 Physical Exam Other Physical Findings: He appears comfortable in no acute distress Lungs are clear Heart regular rhythm with no murmur Extremity right foot dressing intact Results Last 24 Hours of Lab Results: Laboratory Tests 05/02 1245 Hematology CBC w Diff MAN DIFF ORDERED WBC (4.8 - 10.8 /CUMM) 15.9 H RBC (4.70 - 6.10 /CUMM) 3.66 L Hgb (14.0 - 18.0 G/DL) 10.9 L Hct (42 - 52 %) 33.2 L MCV (80.0 - 94.0 FL) 90.7 MCH (27.0 - 31.0 PG) 29.8 RDW (11.5 - 14.5 %) 13.8 Plt Count (130 - 400 /CUMM) 260 MPV (7.4 - 10.4 FL) 9.1 Gran % (42.2 - 75.2 %) 87.7 H Lymphocytes % (20.5 - 51.1 %) 5.4 L Monocytes % (1.7 - 9.3 %) 5.8 Eosinophils % (0 - 5 %) 0.2 Basophils % (0.0 - 2.0 %) 0.9 Absolute Granulocytes (1.4 - 6.5 /CUMM) 13.9 H Absolute Lymphocytes (1.2 - 3.4 /CUMM) 0.9 L Absolute Monocytes (0.10 - 0.60 /CUMM) 0.9 H Absolute Eosinophils (0.0 - 0.7 /CUMM) 0 Absolute Basophils (0.0 - 0.2 /CUMM) 0.1 Platelet Estimate (ADEQUATE) VERIFIED BY SMEAR Normocytic RBCs VERIFIED Normochromic RBCs VERIFIED PUBS MCHC (33.0 - 37.0 G/DL) 32.9 L Last 24 Hours of Ramin Results: OR cultures April 29 positive for Group B strep, Escherichia coli and anaerobic gram-negative rods Recent Imaging Studies: Renal ultrasound May 01 negative Assessment/Plan Impression: Stable status post revisional partial first ray resection of the right foot 2 days ago for polymicrobial osteomyelitis with Group B strep (also isolated from the blood), Escherichia coli and anaerobic gram-negative rods isolated from the OR cultures. He remains afebrile with white blood cell count decreasing on Unasyn now 4 days status post initial surgery for partial first ray resection, and his renal function has normalized. He is apparently scheduled for a return to the OR in 2 days for wound VAC change. Suggestion: 1. Await possible return to the OR later this week 2. Would proceed with placement of a PICC 3. Increase Unasyn to 3 g IV every 6 hours
--- NOTE | 2016-05-03 09:39 | PN- Podiatry ---
Subjective Subjective: Patient seen at bedside with no acute complaints. Patient denies nausea vomiting fever chills. Patient admits to some right foot pain, which is relieved with by mouth analgesics. Objective Vital Signs and I&Os Vital Signs Date Time Temp Pulse Resp B/P Pulse O2 O2 Flow FiO2 Ox Delivery Rate 05/03 0657 98.4 92 24 134/86 96 Room Air 05/03 0000 95 Room Air 05/02 2200 99.6 95 22 140/90 95 Room Air 05/02 1501 98.3 97 20 128/80 95 05/02 1121 95 126/80 Intake & Output 05/03 1600 05/03 0800 05/03 0000 05/02 1600 05/02 0800 05/02 0000 Intake Total 800 2100 1500 1120 775 Output Total 450 1410 1000 950 700 Balance 350 690 500 170 75 Intake, IV 600 832 336 2054 375 Intake, Oral 200 1500 800 120 400 Number 1 1 Bowel Movements Output, 10 Drainage Output, Urine 450 1400 1000 950 700 Patient 320 lb Weight Physical Exam: Wound VAC in place to right foot with approximately 180 mL of serosanguineous drainage noted to the canister. Some persistent edema and erythema noted to the right ankle. Assessment/Plan Assessment/Plan Right foot osteomyelitis and cellulitis. Continue IV antibiotics per ID recommendations. Patient to the OR Wednesday for washout and VAC change. Core Measures/Miscellaneous Venous Thromboembolism VTE Risk Factors: Age > 40, Obesity, Surgery VTE Contraindications: No Contraindications VTE Prophylaxis Ordered Inpt: Pharm- Heparin VTE Diagnosis: No Beta [place] Is Beta [place] a Home Med? No Antibiotics Is Patient on Antibiotics? Yes If Yes: infection Attending MD Review Statement Attending Statement Attending MD Statement: examined this patient
--- NOTE | 2016-05-03 10:01 | PN- Diabetes ---
Assessment/Plan Assessment: 45-year-old Obese man with past medical history of poorly controlled diabetes type 2 with HbA1c of 12%, was admitted for diabetic right foot infection with cellulitis of right lower extremity and positive blood culture of gram positive cocci. Patient states that he is eating well now. He is on Levemir 30 units twice a day along with sliding scale NovoLog which has been increased. Finger stick blood sugars yesterday were to 78 before breakfast, 258 before lunch, 278 before dinner, and 259 at bedtime. Fingerstick blood sugar this morning is 160. The patient's renal function is improved with hydration with normal saline. Her serum sodium is also improved to 131. Plan: Suggest continue Levemir 30 units twice a day. Increase sliding-scale NovoLog before meals to 80-150 give 10 units NovoLog, 151-200 give 12 units NovoLog, 201 -250 give 14 units NovoLog, 251-300 give 16 units NovoLog, 301-350 give 18 units NovoLog, 351 400 give 20 units NovoLog. Bedtime sliding scale NovoLog should stay the same. We should repeat the patient's BUN creatinine and electrolytes to make sure his serum sodium has continued to improve. The patient apparently is going back to the OR on Wednesday. Therefore we will not start metformin or other oral agents. Subjective Subjective: 40 still painful Review of Systems Constitutional: Denies: chills, fever. Cardiovascular: Denies: chest pain. Respiratory: Denies: cough, short of breath. Gastrointestinal: Denies: abdominal pain. Hematologic/Endocrine: Denies: polyuria, polydipsia. Objective Last 24 Hrs of Vital Signs/I&O Vital Signs Date Time Temp Pulse Resp B/P Pulse O2 O2 Flow FiO2 Ox Delivery Rate 05/03 0657 98.4 92 24 134/86 96 Room Air 05/03 0000 95 Room Air 05/02 2200 99.6 95 22 140/90 95 Room Air 05/02 1501 98.3 97 20 128/80 95 05/02 1121 95 126/80 Intake & Output 05/03 1600 05/03 0800 05/03 0000 Intake Total 800 2100 Output Total 450 1410 Balance 350 690 Intake, IV 600 600 Intake, Oral 200 1500 Number 1 Bowel Movements Output, 10 Drainage Output, Urine 450 1400 Vital Signs Date Time Temp Pulse Resp B/P Pulse O2 O2 Flow FiO2 Ox Delivery Rate 02/26 0657 98.4 92 24 134/86 96 Room Air 05/03 0000 95 Room Air 05/02 2200 99.6 95 22 140/90 95 Room Air 05/02 1501 98.3 97 20 128/80 95 05/02 1121 95 126/80 Intake & Output 05/03 1600 05/03 0800 05/03 0000 Intake Total 800 2100 Output Total 450 1410 Balance 350 690 Intake, IV 600 600 Intake, Oral 200 1500 Number 1 Bowel Movements Output, 10 Drainage Output, Urine 450 1400 Physical Exam General Appearance: alert, awake, anxious Head: normal appearance Neck: normal inspection Respiratory: normal breath sounds Cardiovascular: regular rate/rhythm Abdomen: normal bowel sounds, soft Extremities: right foot bandaged Current Medications: Current Medications Sig/Angela Start time Last Medication Dose Route Stop Time Status Admin Acetaminophen 650 MG Q6-PRN PRN 04/29 2014 AC PO Amlodipine Besylate 5 MG DAILY 04/30 1000 AC 05/01 PO 0843 Ampicillin Sodium/ 3,000 MG Q8H 05/01 0200 AC 05/03 Sulbactam Sodium IV 0131 Sodium Chloride 100 ML Atorvastatin Calcium 20 MG DAILY 04/30 1000 AC 05/02 PO 1122 Enoxaparin Sodium 40 MG DAILY 04/30 1000 AC 05/02 NE 1122 Influenza Virus 0.5 ML ONCE ONE 05/02 1430 DC 05/02 Vaccine IM 05/02 1431 1421 Influenza Virus 0.5 ML 1000 04/30 1000 CAN Vaccine IM 05/02 2300 Insulin Aspart 0 TIDAC/HS 05/01 1700 AC 05/03 NE 0817 Insulin Detemir 34 UNITS BID 05/02 2200 AC 05/02 NE 2109 Insulin Detemir 30 UNITS BID 05/01 2200 DC 05/02 NE 1123 Oxycodone HCl 5 MG Q4-PRN PRN 04/29 2030 AC 05/03 PO 0820 Polyethylene Glycol 17 GM DAILY 04/30 1145 AC 05/02 PO 1122 Sodium Chloride 1,000 ML Q6H 05/01 1500 AC 05/03 IV 0132 Findings Pertinent Lab/Ramin Results: Laboratory Tests 05/02 1245 Hematology CBC w Diff MAN DIFF ORDERED WBC (4.8 - 10.8 /CUMM) 15.9 H RBC (4.70 - 6.10 /CUMM) 3.66 L Hgb (14.0 - 18.0 G/DL) 10.9 L Hct (42 - 52 %) 33.2 L MCV (80.0 - 94.0 FL) 90.7 MCH (27.0 - 31.0 PG) 29.8 RDW (11.5 - 14.5 %) 13.8 Plt Count (130 - 400 /CUMM) 260 MPV (7.4 - 10.4 FL) 9.1 Gran % (42.2 - 75.2 %) 87.7 H Lymphocytes % (20.5 - 51.1 %) 5.4 L Monocytes % (1.7 - 9.3 %) 5.8 Eosinophils % (0 - 5 %) 0.2 Basophils % (0.0 - 2.0 %) 0.9 Absolute Granulocytes (1.4 - 6.5 /CUMM) 13.9 H Absolute Lymphocytes (1.2 - 3.4 /CUMM) 0.9 L Absolute Monocytes (0.10 - 0.60 /CUMM) 0.9 H Absolute Eosinophils (0.0 - 0.7 /CUMM) 0 Absolute Basophils (0.0 - 0.2 /CUMM) 0.1 Platelet Estimate (ADEQUATE) VERIFIED BY SMEAR Normocytic RBCs VERIFIED Normochromic RBCs VERIFIED PUBS MCHC (33.0 - 37.0 G/DL) 32.9 L
[2016-05-03 12:04] LABS: ABSOLUTE BASOPHIL COUNT 0 /CUMM (0.0-0.2); ABSOLUTE EOSINOPHIL COUNT 0.1 /CUMM (0.0-0.7); ABSOLUTE GRANULOCYTE CT 14.6 /CUMM (1.4-6.5); ABSOLUTE LYMPH COUNT 1.2 /CUMM (1.2-3.4); ABSOLUTE MONOCYTE COUNT 1.7 /CUMM (0.10-0.60); BASOPHIL % 0.1 % (0.0-2.0); EOSINOPHIL % 0.5 % (0-5); GRANULOCYTE % 82.8 % (42.2-75.2); HEMATOCRIT 32.6 % (42-52); MEAN CORPUSCULAR HGB 29.9 PG (27.0-31.0); MEAN CORPUSCULAR HGB CONC 33.3 G/DL (33.0-37.0); MEAN CORPUSCULAR VOLUME 89.6 FL (80.0-94.0); PLATELET COUNT 294 /CUMM (130-400); RBC DISTRIBUTION WIDTH 13.6 % (11.5-14.5); RED BLOOD CELL CT 3.63 /CUMM (4.70-6.10); WHITE BLOOD CELL COUNT 17.6 /CUMM (4.8-10.8)
--- NOTE | 2016-05-03 12:46 | PN- Att Addend ---
Attending Addendum Attending Brief Note 45-year-old gentleman with past medical history significant for diabetes mellitus and has been admitted with a right foot gas gangrene/osteomyelitis/ cellulitis. Dr. Wayne has been managing with his foot and has taken the patient twice to the OR. Patient was seen and examined on the bedside. Reports no active issues, no overnight fevers and blood pressure has remained stable. ID and nephrology on board. His kidney functions has been improved from 1.9 to 0.8 today. Renal ultrasound with normal bilateral kidneys with no evidence of obstruction. Diabetic regimen has been changed today as per endocrinology recommendations. The dose of IV Unasyn has been increased t 3Gm IV Q6 as per ID recommendations. The plan is to take the patient back to the OR on Wednesday for changing of his VAC. Pt would need a PICC line for placement to complete his course of IV antibiotics on discharge.
[2016-05-03 15:46] VITALS: BP 140/90
[2016-05-03 23:42] VITALS: BP 154/80
[2016-05-04 07:13] VITALS: BP 154/86
--- NOTE | 2016-05-04 07:47 | PN- Medicine Consult ---
ELIER NAILS 05/04/16 0747: Assessment/Plan Assessment/Plan Assessment: This is a 45-year-old Obese man with past medical history of poorly controlled diabetes, hypertension, chronic nonhealing ulcer of plantar aspect of his right foot status post multiple debridements in past by Dr. Dowd, history of multi loculated abscess in posterior neck status post I&D in 2016, history of C. difficile and obstructive sleep apnea not using CPAP anymore. 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 He was admitted for debridement and IV antibiotics. Plan: Sepsis secondary to chronic nonhealing ulcer of right foot now with cellulitis and gas gangrene status post excisional debridement and first ray resection right foot. He was tachycardic with WBC count 24.2 with 8 bands on admission. Patient on IV unasyl, has remained afebril and will go for subsequent debridement May 05. Acute kidney injury It has resolved.Creatinine down to 0.6 from a maximum of 1.9. Hypokalemic at 3.4, will get oral K correction History of poorly controlled diabetes mellitus Patient started on diabetic diet and is on insulin sliding scale. HbA1c 12.0. Patient follows with Dr. Azul thank you for recommendations. Continue with Accu- Cheks and insulin. Follow-up endocrinology consult recommendations. History of hypertension Patient has history of hypertension he is on amlodipine 5 mg daily. Blood pressure consistently around 150/90. Problem List: 1. Cellulitis of right foot 2. Foot infection 3. Diabetes mellitus 4. Hypertension Subjective Subjective: Reviewed the patient sitting comfortably on the bed he reports that overnight he didn't sleep well because he took such a long time to get his peripheral vein access. He denies any fevers or chills he reports he has mild discomfort on the foot but is getting better. Review of Systems Constitutional: Denies: chills, fever. Cardiovascular: Denies: chest pain, palpitations. Respiratory: Denies: cough, short of breath. Gastrointestinal: Denies: abdominal pain, nausea, vomiting. Genitourinary: Denies: no symptoms. Comments: All other systems reviewed and are negative Objective Last 24 Hrs of Vital Signs/I&O Vital Signs Date Time Temp Pulse Resp B/P Pulse O2 O2 Flow FiO2 Ox Delivery Rate 05/04 0713 98.4 90 24 154/86 96 Room Air 05/03 2342 99.9 96 24 154/80 96 Room Air 05/03 1546 99.1 93 22 140/90 95 05/03 1049 92 150/92 Intake & Output 05/04 0800 05/04 0000 05/03 1600 Intake Total 700 2080 1200 Output Total 951 048 2426 Balance 0 1380 100 Intake, IV 400 600 600 Intake, Oral 300 1480 600 Number 1 1 Bowel Movements Output, Urine 656 252 6750 Physical Exam General Appearance: no apparent distress, alert, awake Head: atraumatic, normal appearance Ears, Nose, Throat: moist mucus membranes Neck: normal inspection, supple Cardiovascular: regular rate/rhythm Respiratory: normal breath sounds, no respiratory distress Peripheral Pulses: 2+ dorsalis pedis (R), 2+ dorsalis pedis (L) Abdomen: normal bowel sounds, soft, obese abdomen Current Medications: Current Medications Sig/Angela Start time Last Medication Dose Route Stop Time Status Admin Acetaminophen 650 MG Q6-PRN PRN 04/29 2014 PO Amlodipine Besylate 5 MG DAILY 04/30 1000 AC 05/03 PO 1049 Ampicillin Sodium/ 3,000 MG Q6H 05/03 1600 AC 05/04 Sulbactam Sodium IV 0335 Sodium Chloride 100 ML Ampicillin Sodium/ 3,000 MG Q6 05/03 1200 DC Sulbactam Sodium IV Sodium Chloride 100 ML Ampicillin Sodium/ 3,000 MG Q8H 05/01 0200 DC 05/03 Sulbactam Sodium IV 1034 Sodium Chloride 100 ML Atorvastatin Calcium 20 MG DAILY 04/30 1000 AC 05/03 PO 1048 Enoxaparin Sodium 40 MG DAILY 04/30 1000 AC 05/03 MT 1049 Insulin Aspart 0 TIDAC/HS 05/01 1700 05/04 MT 0812 Insulin Detemir 30 UNITS BID 05/03 2200 05/03 MT 2244 Insulin Detemir 34 UNITS BID 05/02 2200 AZ 05/03 MT 1048 Oxycodone HCl 5 MG Q4-PRN PRN 04/29 2030 AC 05/03 PO 1505 Polyethylene Glycol 17 GM DAILY 04/30 1145 05/03 PO 1049 Sodium Chloride 1,000 ML Q6H 05/01 1500 AC 05/04 IV 0812 Results Last 24 Hrs Lab/Ramin Results: Laboratory Tests 05/04/16 0645: Anion Gap 8, Estimated GFR > 60, BUN/Creatinine Ratio 20.0, CBC w Diff NO MAN DIFF REQ, RBC 3.53 L, MCV 90.8, MCH 30.5, RDW 13.7, MPV 8.7, Gran % 82.6 H, Lymphocytes % 6.7 L, Monocytes % 10.2 H, Eosinophils % 0.5, Basophils % 0 L, Absolute Granulocytes 14.9 H, Absolute Lymphocytes 1.2, Absolute Monocytes 1.8 H, Absolute Eosinophils 0.1, Absolute Basophils 0, PUBS MCHC 33.6 05/03/16 1110: Anion Gap 10, Estimated GFR > 60, BUN/Creatinine Ratio 23.8, CBC w Diff NO MAN DIFF REQ, RBC 3.63 L, MCV 89.6, MCH 29.9, RDW 13.6, MPV 9.0, Gran % 82.8 H, Lymphocytes % 6.9 L, Monocytes % 9.7 H, Eosinophils % 0.5, Basophils % 0.1, Absolute Granulocytes 14.6 H, Absolute Lymphocytes 1.2, Absolute Monocytes 1.7 H, Absolute Eosinophils 0.1, Absolute Basophils 0, PUBS MCHC 33.3 GINGER TSE MD 05/04/16 1508: Attending MD Review Statement Attending Sign Off Attending Cosign Statement: I have: examined this patient, reviewed aval EMR data, discussd w/resident/PA/ ULTRASOUND SPECIALIST, discussed mgmt plan w/bob, agreed w/resident/PA/ULTRASOUND SPECIALIST, amended to note. Other Findings: The patient was seen and discussed with house staff. He agrees to PICC line ( consent obtained) and will be placed today. Continue Unasyn as per ID.
[2016-05-04 07:58] LABS: ABSOLUTE BASOPHIL COUNT 0 /CUMM (0.0-0.2); ABSOLUTE EOSINOPHIL COUNT 0.1 /CUMM (0.0-0.7); ABSOLUTE GRANULOCYTE CT 14.9 /CUMM (1.4-6.5); ABSOLUTE LYMPH COUNT 1.2 /CUMM (1.2-3.4); ABSOLUTE MONOCYTE COUNT 1.8 /CUMM (0.10-0.60); BASOPHIL % 0 % (0.0-2.0); EOSINOPHIL % 0.5 % (0-5); GRANULOCYTE % 82.6 % (42.2-75.2); HEMATOCRIT 32.1 % (42-52); MEAN CORPUSCULAR HGB 30.5 PG (27.0-31.0); MEAN CORPUSCULAR HGB CONC 33.6 G/DL (33.0-37.0); MEAN CORPUSCULAR VOLUME 90.8 FL (80.0-94.0); MEAN PLATELET VOLUME 8.7 FL (7.4-10.4); PLATELET COUNT 296 /CUMM (130-400); RBC DISTRIBUTION WIDTH 13.7 % (11.5-14.5); RED BLOOD CELL CT 3.53 /CUMM (4.70-6.10)
--- NOTE | 2016-05-04 08:15 | PN- Diabetes ---
Assessment/Plan Assessment: 45-year-old Obese man with past medical history of poorly controlled diabetes type 2 with HbA1c of 12%, was admitted for diabetic right foot infection with cellulitis of right lower extremity and positive blood culture of gram positive cocci. T max 99.9. He is going to have more procedure done on his right foot tomorrow. Patient states that he is eating well now. He is on Levemir 30 units twice a day. Novolog coverage before meals was adjusted. His FSGs were 160, 173, 228, 205 and 104. He is on NS at 75 ml/hour. Repeat Cr is 0.6 along with sodium 132 and K 3.4. His renal function improved. Plan: 1. continue the current insulin regimen for now--- Levemir 30 units twice a day, Novolog coverage before meals and Novolog coverage at bedtime; 2. He is scheduled to have more procedure done tomorrow, I will recommend decreasing Levemir at bedtime from 30 units to 20 units. 3. continue monitoring his FSGs; 4. repeat K; 5. continue monitoring his electrolytes. will follow. Subjective Subjective: He feels okay. T max was 99.9 last night. Objective Last 24 Hrs of Vital Signs/I&O Vital Signs Date Time Temp Pulse Resp B/P Pulse O2 O2 Flow FiO2 Ox Delivery Rate 05/04 0713 98.4 90 24 154/86 96 Room Air 05/03 2342 99.9 96 24 154/80 96 Room Air 05/03 1546 99.1 93 22 140/90 95 05/03 1049 92 150/92 Intake & Output 05/04 1600 05/04 0800 05/04 0000 Intake Total 700 2080 Output Total 700 700 Balance 0 1380 Intake, IV 400 600 Intake, Oral 300 1480 Number 1 Bowel Movements Output, Urine 700 700 Findings Pertinent Lab/Ramin Results: Laboratory Tests 05/04 05/03 0645 1110 Chemistry Sodium (137 - 145 mmol/L) 132 L 131 L Potassium (3.5 - 5.1 mmol/L) 3.4 L 3.7 Chloride (98 - 107 mmol/L) 101 100 Carbon Dioxide (22 - 30 mmol/L) 23 21 L Anion Gap (5 - 16) 8 10 BUN (9 - 20 mg/dL) 12 19 Creatinine (0.7 - 1.2 mg/dL) 0.6 L 0.8 Estimated GFR (>60 ml/min) > 60 > 60 BUN/Creatinine Ratio (7 - 25 %) 20.0 23.8 Hematology CBC w Diff NO MAN DIFF REQ NO MAN DIFF REQ WBC (4.8 - 10.8 /CUMM) 18.0 H 17.6 H RBC (4.70 - 6.10 /CUMM) 3.53 L 3.63 L Hgb (14.0 - 18.0 G/DL) 10.8 L 10.9 L Hct (42 - 52 %) 32.1 L 32.6 L MCV (80.0 - 94.0 FL) 90.8 89.6 MCH (27.0 - 31.0 PG) 30.5 29.9 RDW (11.5 - 14.5 %) 13.7 13.6 Plt Count (130 - 400 /CUMM) 296 294 MPV (7.4 - 10.4 FL) 8.7 9.0 Gran % (42.2 - 75.2 %) 82.6 H 82.8 H Lymphocytes % (20.5 - 51.1 %) 6.7 L 6.9 L Monocytes % (1.7 - 9.3 %) 10.2 H 9.7 H Eosinophils % (0 - 5 %) 0.5 0.5 Basophils % (0.0 - 2.0 %) 0 L 0.1 Absolute Granulocytes (1.4 - 6.5 /CUMM) 14.9 H 14.6 H Absolute Lymphocytes (1.2 - 3.4 /CUMM) 1.2 1.2 Absolute Monocytes (0.10 - 0.60 /CUMM) 1.8 H 1.7 H Absolute Eosinophils (0.0 - 0.7 /CUMM) 0.1 0.1 Absolute Basophils (0.0 - 0.2 /CUMM) 0 0 PUBS MCHC (33.0 - 37.0 G/DL) 33.6 33.3
--- NOTE | 2016-05-04 12:41 | PN- Nephrology ---
Assessment/Plan Assessment: KEE - likely 2/2 ATN (sepsis while on SARAH inhibitor and prior NSAID use). Has resolved back to baseline. DM HTN - Would be OK to restart SARAH-I now that creatinine is back to baseline. Suggestion: -OK to restart SARAH-I -Would avoid NSAID's especially while on SARAH-I -Would check UA and urine protein and creatinine ratio, if elevated, patient can follow-up with us as an outpatient - otherwise, no specific need for nephrology follow-up at this time (please let us know on discharge) -Given that creatinine is back to baseline, no need to resend complements if they haven't already been sent -Please call if questions with any of the labs that come back Will see PRN Subjective Subjective: Creatinine back to baseline of 0.6 Complements pending On IVF at 75cc/hr - feels a bit swollen Reports eating/drinking well Objective Vital Signs and I&Os Vital Signs Date Time Temp Pulse Resp B/P Pulse O2 O2 Flow FiO2 Ox Delivery Rate 05/04 1010 92 152/90 05/04 0713 98.4 90 24 154/86 96 Room Air 05/03 2342 99.9 96 24 154/80 96 Room Air 05/03 1546 99.1 93 22 140/90 95 Intake & Output 05/04 1600 05/04 0400 05/03 1600 05/03 0400 05/02 1600 05/02 0400 Intake Total 700 2080 2000 2100 2620 775 Output Total 850 1400 1100 1860 1950 700 Balance -150 680 900 240 670 75 Intake, IV 878 391 3339 600 1700 375 Intake, Oral 300 1131 865 7203 920 400 Number 1 1 1 1 Bowel Movements Output, 10 Drainage Output, Urine 850 1400 1100 1850 1950 700 Patient 320 lb Weight Physical Exam: Gen - NAD HEENT - supple CV - RRR Chest - clear anteriorly Abd - soft, nontender Ext - 1+ edema, RLE foot wrapped Neuro - AOX3 Current Medications: Current Medications Sig/Angela Start time Last Medication Dose Route Stop Time Status Admin Acetaminophen 650 MG Q6-PRN PRN 04/29 2014 AC PO Amlodipine Besylate 5 MG DAILY 04/30 1000 AC 05/04 PO 1010 Ampicillin Sodium/ 3,000 MG Q6H 05/03 1600 AC 05/04 Sulbactam Sodium IV 1009 Sodium Chloride 100 ML Atorvastatin Calcium 20 MG DAILY 04/30 1000 AC 05/04 PO 1009 Enoxaparin Sodium 40 MG DAILY 04/30 1000 AC 05/04 SC 1010 Insulin Aspart 0 TIDAC/HS 05/01 1700 AC 05/04 SC 1216 Insulin Detemir 30 UNITS BID 05/03 2200 AC 05/04 SC 1009 Oxycodone HCl 5 MG Q4-PRN PRN 04/29 2030 AC 05/04 PO 1140 Polyethylene Glycol 17 GM DAILY 04/30 1145 AC 05/04 PO 1010 Potassium Chloride 60 MEQ ONCE ONE 05/04 0830 DC 05/04 PO 05/04 0831 1009 Sodium Chloride 1,000 ML Q6H 05/01 1500 AC 05/04 IV 0812 Results Pertinent Lab Results: Laboratory Tests 05/04 05/03 0645 1110 Chemistry Sodium (137 - 145 mmol/L) 132 L 131 L Potassium (3.5 - 5.1 mmol/L) 3.4 L 3.7 Chloride (98 - 107 mmol/L) 101 100 Carbon Dioxide (22 - 30 mmol/L) 23 21 L Anion Gap (5 - 16) 8 10 BUN (9 - 20 mg/dL) 12 19 Creatinine (0.7 - 1.2 mg/dL) 0.6 L 0.8 Estimated GFR (>60 ml/min) > 60 > 60 BUN/Creatinine Ratio (7 - 25 %) 20.0 23.8 Hematology CBC w Diff NO MAN DIFF REQ NO MAN DIFF REQ WBC (4.8 - 10.8 /CUMM) 18.0 H 17.6 H RBC (4.70 - 6.10 /CUMM) 3.53 L 3.63 L Hgb (14.0 - 18.0 G/DL) 10.8 L 10.9 L Hct (42 - 52 %) 32.1 L 32.6 L MCV (80.0 - 94.0 FL) 90.8 89.6 MCH (27.0 - 31.0 PG) 30.5 29.9 RDW (11.5 - 14.5 %) 13.7 13.6 Plt Count (130 - 400 /CUMM) 296 294 MPV (7.4 - 10.4 FL) 8.7 9.0 Gran % (42.2 - 75.2 %) 82.6 H 82.8 H Lymphocytes % (20.5 - 51.1 %) 6.7 L 6.9 L Monocytes % (1.7 - 9.3 %) 10.2 H 9.7 H Eosinophils % (0 - 5 %) 0.5 0.5 Basophils % (0.0 - 2.0 %) 0 L 0.1 Absolute Granulocytes (1.4 - 6.5 /CUMM) 14.9 H 14.6 H Absolute Lymphocytes (1.2 - 3.4 /CUMM) 1.2 1.2 Absolute Monocytes (0.10 - 0.60 /CUMM) 1.8 H 1.7 H Absolute Eosinophils (0.0 - 0.7 /CUMM) 0.1 0.1 Absolute Basophils (0.0 - 0.2 /CUMM) 0 0 PUBS MCHC (33.0 - 37.0 G/DL) 33.6 33.3 05/02 05/02 05/02 1245 0720 0720 Chemistry Sodium (137 - 145 mmol/L) 131 L Potassium (3.5 - 5.1 mmol/L) 3.8 Chloride (98 - 107 mmol/L) 96 L Carbon Dioxide (22 - 30 mmol/L) 21 L Anion Gap (5 - 16) 14 BUN (9 - 20 mg/dL) 36 H Creatinine (0.7 - 1.2 mg/dL) 0.9 Estimated GFR (>60 ml/min) > 60 BUN/Creatinine Ratio (7 - 25 %) 40.0 H Magnesium (1.6 - 2.3 mg/dL) Cancelled 2.2 Hematology CBC w Diff MAN DIFF ORDERED WBC (4.8 - 10.8 /CUMM) 15.9 H RBC (4.70 - 6.10 /CUMM) 3.66 L Hgb (14.0 - 18.0 G/DL) 10.9 L Hct (42 - 52 %) 33.2 L MCV (80.0 - 94.0 FL) 90.7 MCH (27.0 - 31.0 PG) 29.8 RDW (11.5 - 14.5 %) 13.8 Plt Count (130 - 400 /CUMM) 260 MPV (7.4 - 10.4 FL) 9.1 Gran % (42.2 - 75.2 %) 87.7 H Lymphocytes % (20.5 - 51.1 %) 5.4 L Monocytes % (1.7 - 9.3 %) 5.8 Eosinophils % (0 - 5 %) 0.2 Basophils % (0.0 - 2.0 %) 0.9 Absolute Granulocytes (1.4 - 6.5 /CUMM) 13.9 H Absolute Lymphocytes (1.2 - 3.4 /CUMM) 0.9 L Absolute Monocytes (0.10 - 0.60 /CUMM) 0.9 H Absolute Eosinophils (0.0 - 0.7 /CUMM) 0 Absolute Basophils (0.0 - 0.2 /CUMM) 0.1 Platelet Estimate (ADEQUATE) VERIFIED BY SMEAR Normocytic RBCs VERIFIED Normochromic RBCs VERIFIED PUBS MCHC (33.0 - 37.0 G/DL) 32.9 L 05/02 05/01 0720 1250 Chemistry Prot Electrophoresis Pending Total Protein (PEP) Pending Albumin % (PEP) Pending [id number] Pending Mypws-0-Lrgelcigm Pending [id number] Pending [id number] Pending Gamma Globulins Pending Abnorm Protein Band 1 Pending Abnorm Protein Band 2 Pending Abnorm Protein Band 3 Pending Immunology Complement C3 Pending Complement C4 Pending Urines Ur Random Creatinine (mg/dL) 205.6 Ur Random Sodium (30 - 90 mmol/L) < 5 L Ur Random Potassium (mmol/L) 56.1 Fraction Sodium Excret (<1% %) Imaging/Other Studies: US - US-RENAL/KIDNEY EXAMINATION: US RETROPERITONEAL COMPLETE (RENAL) CLINICAL INFORMATION: Decreased urine output. COMPARISON: None TECHNIQUE: Real-time imaging of the kidneys and bladder. FINDINGS: RIGHT KIDNEY: 13.4 x 7.6 x 7.6 cm (SAG x AP x TRV). The kidney is normal in size, contour, and echogenicity. Renal cortical thickness is normal. No calculi or focal parenchymal lesions. No hydronephrosis. LEFT KIDNEY: 14.9 x 8.6 x 6.6 cm (SAG x AP x TRV). The kidney is normal in size, contour, and echogenicity. Renal cortical thickness is normal. No calculi or focal parenchymal lesions. No hydronephrosis. BLADDER: Well-distended and normal. The left ureteral jet is demonstrated IMPRESSION: Normal appearance of both kidneys sonographically.
--- NOTE | 2016-05-04 15:13 | PN- Infect Dx ---
Subjective Subjective: Afebrile. He notes minimal discomfort in the right foot. He has had no diarrhea or dysuria. He does note a dry cough but denies shortness of breath or chest pain. Objective Last 24 Hrs of Vital Signs/I&O Vital Signs Date Time Temp Pulse Resp B/P Pulse O2 O2 Flow FiO2 Ox Delivery Rate 05/04 1010 92 152/90 05/04 0713 98.4 90 24 154/86 96 Room Air 05/03 2342 99.9 96 24 154/80 96 Room Air 05/03 1546 99.1 93 22 140/90 95 Intake & Output 05/04 1600 05/04 0800 05/04 0000 Intake Total 700 2080 Output Total 850 700 700 Balance -850 0 1380 Intake, IV 400 600 Intake, Oral 300 1480 Number 1 Bowel Movements Output, Urine 850 700 700 Physical Exam Other Physical Findings: He appears comfortable in no acute distress Lungs are clear Heart regular rhythm with no murmur Abdomen is obese, soft, nontender with positive bowel sounds Extremities right foot wound VAC in place Results Last 24 Hours of Lab Results: Laboratory Tests 05/04 0645 Chemistry Sodium (137 - 145 mmol/L) 132 L Potassium (3.5 - 5.1 mmol/L) 3.4 L Chloride (98 - 107 mmol/L) 101 Carbon Dioxide (22 - 30 mmol/L) 23 Anion Gap (5 - 16) 8 BUN (9 - 20 mg/dL) 12 Creatinine (0.7 - 1.2 mg/dL) 0.6 L Estimated GFR (>60 ml/min) > 60 BUN/Creatinine Ratio (7 - 25 %) 20.0 Hematology CBC w Diff NO MAN DIFF REQ WBC (4.8 - 10.8 /CUMM) 18.0 H RBC (4.70 - 6.10 /CUMM) 3.53 L Hgb (14.0 - 18.0 G/DL) 10.8 L Hct (42 - 52 %) 32.1 L MCV (80.0 - 94.0 FL) 90.8 MCH (27.0 - 31.0 PG) 30.5 RDW (11.5 - 14.5 %) 13.7 Plt Count (130 - 400 /CUMM) 296 MPV (7.4 - 10.4 FL) 8.7 Gran % (42.2 - 75.2 %) 82.6 H Lymphocytes % (20.5 - 51.1 %) 6.7 L Monocytes % (1.7 - 9.3 %) 10.2 H Eosinophils % (0 - 5 %) 0.5 Basophils % (0.0 - 2.0 %) 0 L Absolute Granulocytes (1.4 - 6.5 /CUMM) 14.9 H Absolute Lymphocytes (1.2 - 3.4 /CUMM) 1.2 Absolute Monocytes (0.10 - 0.60 /CUMM) 1.8 H Absolute Eosinophils (0.0 - 0.7 /CUMM) 0.1 Absolute Basophils (0.0 - 0.2 /CUMM) 0 PUBS MCHC (33.0 - 37.0 G/DL) 33.6 Last 24 Hours of Ramin Results: No recent cultures Assessment/Plan Impression: Persistent leukocytosis despite revisional partial first resection of the right foot 3 days ago and treatment with Unasyn 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 There does not appear to be any new focus of infection; therefore must consider the possibility of persistent infection in the right foot. He is scheduled for a return to the OR in the a.m. for a washout and wound VAC change. Suggestion: 1. Await return to the OR in the a.m. 2. Can proceed with placement of PICC 3. Continue Unasyn
--- NOTE | 2016-05-04 15:18 | RADIOLOGY REPORT ---
EXAMINATION: XR PORTABLE CHEST CLINICAL INFORMATION: PICC placement. COMPARISON: None. TECHNIQUE: AP portable semiupright view of the chest FINDINGS: Right PICC line terminates in the right subclavian vein near the brachiocephalic junction. Lung volumes are low. There is significant bibasilar atelectasis. Prominence of the cardiac silhouette and pulmonary vasculature likely related to the PICC placement. Mild pulmonary venous congestion is possible. No interstitial edema. Bones are normal. IMPRESSION: Right PICC line terminating in the subclavian vein near the brachiocephalic junction. Low lung volumes and bibasilar atelectasis. Mild pulmonary venous congestion
[2016-05-04 16:22] VITALS: BP 122/72
--- NOTE | 2016-05-04 17:26 | PN- Podiatry ---
Subjective Subjective: Patient seen at bedside with no acute complaints. Patient denies nausea vomiting fever chills. Patient denies any right foot pain. Objective Vital Signs and I&Os Vital Signs Date Time Temp Pulse Resp B/P Pulse O2 O2 Flow FiO2 Ox Delivery Rate 05/04 1622 98.2 90 20 122/72 98 05/04 1010 92 152/90 05/04 0713 98.4 90 24 154/86 96 Room Air 05/03 2342 99.9 96 24 154/80 96 Room Air Intake & Output 05/04 1600 05/04 0800 05/04 0000 05/03 1600 05/03 0800 05/03 0000 Intake Total 700 2080 8906 594 2758 Output Total 850 955 305 4887 450 1410 Balance -850 0 1380 100 350 690 Intake, IV 400 600 600 600 600 Intake, Oral 300 1480 230 552 2515 Number 1 1 1 Bowel Movements Output, 10 Drainage Output, Urine 850 343 126 8820 450 1400 Physical Exam: Dressing right foot clean dry and intact. Wound VAC in place with 225 mL of serosanguineous drainage. No pain deep palpation bilateral lower extremities. Assessment/Plan Assessment/Plan Cellulitis and osteomyelitis right lower extremity. Patient to the OR tomorrow for revision and VAC exchange. Core Measures/Miscellaneous Venous Thromboembolism VTE Risk Factors: Age > 40, Obesity, Surgery VTE Contraindications: No Contraindications VTE Prophylaxis Ordered Inpt: Pharm- Heparin VTE Diagnosis: No Beta Rome Is Beta Rome a Home Med? No Antibiotics Is Patient on Antibiotics? Yes If Yes: infection Attending MD Review Statement Attending Statement Attending MD Statement: examined this patient
[2016-05-04 22:43] VITALS: BP 140/80
--- NOTE | 2016-05-05 07:21 | PN- Medicine Consult ---
ELIER NAILS 05/05/16 0720: Assessment/Plan Assessment/Plan Assessment: This is a 45-year-old Obese man with past medical history of poorly controlled diabetes, hypertension, chronic non healing ulcer of plantar aspect of his right foot status post multiple debridements in past by Dr. Dowd, history of multi loculated abscess in posterior neck status post I&D in 2016, history of C. difficile and obstructive sleep apnea not using CPAP anymore. 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 He was admitted for debridement and IV antibiotics. Plan: Sepsis secondary to chronic nonhealing ulcer of right foot now with cellulitis and gas gangrene status post excisional debridement and first ray resection right foot. He was tachycardic with WBC count 24.2 with 8 bands on admission. White count is still high slight increased to 20.9 from 18.0 yesterday. Patient on IV unasyl, has remained afebril and will go for subsequent debridement May 05. Acute kidney injury It has resolved.Creatinine down to 0.6 from a maximum of 1.9. Hypokalemic at 3.4, yesterday with correction today potassium is 4.0. History of poorly controlled diabetes mellitus Patient started on diabetic diet and is on insulin sliding scale. HbA1c 12.0. Patient follows with Dr. Azul thank you for recommendations. Continue with Accu- Cheks and insulin. Overnight fingersticks shows a glucose of 134, 120, 93, 100, 114, patient started now on regular insulin sliding scale as she is nothing by mouth pending procedure. Follow-up endocrinology consult recommendations. History of hypertension Patient has history of hypertension he is on amlodipine 5 mg daily. Blood pressure consistently around 140/80. Problem List: 1. Hypertension 2. Diabetes mellitus 3. Foot infection 4. Cellulitis of right foot Subjective Subjective: Reviewed the patient lying comfortably on the bed he reports no new complaints overnight. Had PICC line inserted yesterday without any problems with x-ray confirmation of placement. Review of Systems Constitutional: Denies: chills, fever. Cardiovascular: Denies: chest pain, palpitations. Respiratory: Denies: cough, short of breath. Gastrointestinal: Denies: abdominal pain, nausea, vomiting. Genitourinary: Denies: no symptoms. Musculoskeletal: Reports: see HPI. Comments: All other systems reviewed and are negative Objective Last 24 Hrs of Vital Signs/I&O Vital Signs Date Time Temp Pulse Resp B/P Pulse O2 O2 Flow FiO2 Ox Delivery Rate 05/05 0749 97.9 98 24 154/96 97 Room Air 05/04 2243 99.5 96 24 140/80 95 Room Air 05/04 1622 98.2 90 20 122/72 98 05/04 1010 92 152/90 Intake & Output 05/05 1600 05/05 0800 05/05 0000 Intake Total 600 1250 Output Total 1000 1800 Balance -400 -550 Intake, IV 600 800 Intake, Oral 0 450 Number 1 2 Bowel Movements Output, Urine 1000 1800 Physical Exam General Appearance: no apparent distress, alert, awake Head: atraumatic Ears, Nose, Throat: moist mucus membranes Neck: normal inspection, supple Cardiovascular: regular rate/rhythm Respiratory: normal breath sounds Peripheral Pulses: 2+ dorsalis pedis (R), 2+ dorsalis pedis (L) Abdomen: normal bowel sounds, soft Current Medications: Current Medications Sig/Angela Start time Last Medication Dose Route Stop Time Status Admin Acetaminophen 650 MG Q6-PRN PRN 04/29 2014 AC PO Amlodipine Besylate 5 MG DAILY 04/30 1000 AC 05/04 PO 1010 Ampicillin Sodium/ 3,000 MG Q6H 05/03 1600 AC 05/05 Sulbactam Sodium IV 0353 Sodium Chloride 100 ML Atorvastatin Calcium 20 MG DAILY 04/30 1000 AC 05/04 PO 1009 Enoxaparin Sodium 40 MG DAILY 04/30 1000 DC 05/04 ME 1010 Insulin Aspart 0 Q6 05/04 2359 CAN SC Insulin Aspart 0 TIDAC/HS 05/01 1700 DC 05/04 ME 1737 Insulin Detemir 15 UNITS AT BEDTIME 05/04 2200 AC 05/04 ME 2141 Insulin Detemir 30 UNITS BID 05/03 2200 OK 05/04 ME 1009 Insulin Human Regular 0 Q6 05/04 2014 AC 05/05 SC 0646 Oxycodone HCl 5 MG Q4-PRN PRN 04/29 2030 AC 05/05 PO 0636 Polyethylene Glycol 17 GM DAILY 04/30 1145 AC 05/04 PO 1010 Sodium Chloride 1,000 ML Q6H 05/01 1500 AC 05/05 IV 0636 Results Last 24 Hrs Lab/Ramin Results: Orders Procedure Date/time Status CBC WITHOUT DIFFERENTIAL 05/06 0600 Active BASIC ELECTROLYTES PLUS BUN&CR 05/06 0600 Active Consistent Carbohydrate 3 05/05 L Active Nothing by Mouth 05/05 B Complete PATHOLOGY SPECIMEN 05/05 1227 Active CBC WITHOUT DIFFERENTIAL 05/05 0848 Complete BASIC ELECTROLYTES PLUS BUN&CR 05/05 0848 Complete Nursing Misc 05/04 UNK Active GINGER TSE MD 05/05/16 1735: Attending MD Review Statement Attending Sign Off Attending Cosign Statement: I have: examined this patient, reviewed aval EMR data, discussd w/resident/PA/ QUALITY CONTROL ENGINEERING TECHNICIAN, agreed w/resident/PA/QUALITY CONTROL ENGINEERING TECHNICIAN. Other Findings: The patient was seen and discussed with house staff. Agree with plan of care as outlined.
[2016-05-05 07:49] VITALS: BP 154/96
--- NOTE | 2016-05-05 08:13 | PN- Diabetes ---
Assessment/Plan Assessment: 45-year-old Obese man with past medical history of poorly controlled diabetes type 2 with HbA1c of 12%, was admitted for diabetic right foot infection with cellulitis of right lower extremity and positive blood culture of gram positive cocci. T max 99.5. He is going to have more procedure done on his right foot today He was on Levemir 30 units twice a day, Novolog coverage before meals and Novolog coverage at bedtime. He is on NS at 75 ml/hour. Currently he is NPO. Patient received Levemir 15 units at bedtime last night. He is on RISS every 6 hours. His FSGs were 134, 120 , 93, 100 and 114. Plan: 1. continue monitor FSGs; 2. adjust RISS every 6 hours ( the coverage starts when FSG is > 150---detail see the inpatient DM order); 3. after procedure is done and he is ready to eat. I will recommend restarting him on Levemir 25 units twice a day; he can be on previous Novolog coverage before meals and Novolog coverage at bedtime. will follow. Inpatient Diabetes Orders Every 6 Hours: Bolus Insulin: Novolin regular insulin < 80 mg/dl: no coverage 80-100 mg/dl: no coverage 101-120 mg/dl: no coverage 121-150 mg/dl: no coverage 151-200 mg/dl: 2 units 201-250 mg/dl: 4 units 251-300 mg/dl: 6 units 301-350 mg/dl: 8 units 351-400 mg/dl: 10 units > 400 mg/dl: inform MD Subjective Subjective: He is waiting to go to OR. Currently he is kept NPO. Objective Last 24 Hrs of Vital Signs/I&O Vital Signs Date Time Temp Pulse Resp B/P Pulse O2 O2 Flow FiO2 Ox Delivery Rate 05/05 0749 97.9 98 24 154/96 97 Room Air 05/04 2243 99.5 96 24 140/80 95 Room Air 05/04 1622 98.2 90 20 122/72 98 05/04 1010 92 152/90 Intake & Output 05/05 1600 05/05 0800 05/05 0000 Intake Total 600 1250 Output Total 1000 1800 Balance -400 -550 Intake, IV 600 800 Intake, Oral 0 450 Number 1 2 Bowel Movements Output, Urine 1000 1800
[2016-05-05 09:40] LABS: ABSOLUTE BASOPHIL COUNT 0.1 /CUMM (0.0-0.2); ABSOLUTE EOSINOPHIL COUNT 0.1 /CUMM (0.0-0.7); ABSOLUTE GRANULOCYTE CT 17.7 /CUMM (1.4-6.5); ABSOLUTE LYMPH COUNT 1.4 /CUMM (1.2-3.4); ABSOLUTE MONOCYTE COUNT 1.7 /CUMM (0.10-0.60); BASOPHIL % 0.4 % (0.0-2.0); EOSINOPHIL % 0.3 % (0-5); GRANULOCYTE % 84.7 % (42.2-75.2); HEMATOCRIT 32.2 % (42-52); MEAN CORPUSCULAR HGB 30.5 PG (27.0-31.0); MEAN CORPUSCULAR HGB CONC 33.6 G/DL (33.0-37.0); MEAN CORPUSCULAR VOLUME 90.6 FL (80.0-94.0); MEAN PLATELET VOLUME 8.2 FL (7.4-10.4); PLATELET COUNT 359 /CUMM (130-400); RBC DISTRIBUTION WIDTH 13.2 % (11.5-14.5); RED BLOOD CELL CT 3.56 /CUMM (4.70-6.10); WHITE BLOOD CELL COUNT 20.9 /CUMM (4.8-10.8)
--- NOTE | 2016-05-05 12:40 | Operative Report ---
Operative/Inv Procedure Report Surgery Date: 05/05/16 Name of Procedure: 1 open incision and drainage deep to the D fashion with exposure of the Achilles tendon tendon sheath multiple sites both proximally and distally right leg 2 revisional partial first ray resection right foot 3 excisional debridement Pre-Operative Diagnosis: 1 retrocalcaneal abscess right 2 osteomyelitis right foot 3 diabetic peripheral neuropathy Post-Operative Diagnosis: Same Estimated Blood Loss: 50ml to 100ml Surgeon/Computer Network Engineer: VESNA DEGROOT,TERRY Lemus DPM Anesthesia: local monitored anesthesi Operative/Procedure Note Note: After obtaining informed consent the patient was brought to the operating room and placed on the operating table in the supine position. The patient isn't securely fastened to the operating table utilizing safety belt. After administration of laryngeal mask airway anesthesia, 20 mL of 0.5% Marcaine plain was obtained about the posterior right leg. The right foot ankle and leg within scrubbed prepped and draped in usual aseptic manner. Attention directed to the posterior leg where fluctuance is identified in the retrocalcaneal space. A probe was placed from the open wound at the foot through the tarsal tunnel into the retrocalcaneal space. Incision was made overlying this where purulence wasexpressed from the open space. Incision was then extended proximally along the posterior leg and a plain was developed between the gastrocnemius muscle belly and the deep fascia the posterior leg. The dissection was then carried down deep to the fashion with exposure of the Achilles tendon tendon sheath multiple sites, both proximally and distally. All necrotic nonviable infected tissue sharply evacuated from the wound bed. Nipple was then then irrigated with 3 L of normal sterile saline fissure 50,000 units of bacitracin. Following this the foot was redraped and the surgeon's top was changed clean gloves. Any bleeding vessels identified were cauterized or ligated as encountered. Nipple was then packed with 2 inch iodoform 4 x 4's Kerlix and an Naldo wrap. The patient was noted to tolerate both procedure and anesthesia well and was transported from the operating room to recovery with vital signs stable.
[2016-05-05 14:20] VITALS: BP 170/100
--- NOTE | 2016-05-05 15:54 | PN- Infect Dx ---
Subjective Subjective: Afebrile. He notes mild discomfort in the right foot. Objective Last 24 Hrs of Vital Signs/I&O Vital Signs Date Time Temp Pulse Resp B/P Pulse O2 O2 Flow FiO2 Ox Delivery Rate 05/05 1436 102 170/100 05/05 1420 102 18 170/100 96 Nasal 2.0L Cannula 05/05 0749 97.9 98 24 154/96 97 Room Air 05/04 2243 99.5 96 24 140/80 95 Room Air 05/04 1622 98.2 90 20 122/72 98 Intake & Output 05/05 1600 05/05 0800 05/05 0000 Intake Total 961 024 2566 Output Total 1000 1800 Balance 150 -400 -550 Intake, IV 150 600 800 Intake, Oral 0 0 450 Number 1 1 2 Bowel Movements Output, Urine 1000 1800 Physical Exam Other Physical Findings: He appears comfortable in no acute distress Extremities right foot dressing intact; PICC in the right upper extremity with no inflammation at the site Results Last 24 Hours of Lab Results: Laboratory Tests 05/05 0915 Chemistry Sodium (137 - 145 mmol/L) 136 L Potassium (3.5 - 5.1 mmol/L) 4.0 Chloride (98 - 107 mmol/L) 102 Carbon Dioxide (22 - 30 mmol/L) 28 Anion Gap (5 - 16) 6 BUN (9 - 20 mg/dL) 8 L Creatinine (0.7 - 1.2 mg/dL) 0.6 L Estimated GFR (>60 ml/min) > 60 BUN/Creatinine Ratio (7 - 25 %) 13.3 Hematology CBC w Diff MAN DIFF ORDERED WBC (4.8 - 10.8 /CUMM) 20.9 H RBC (4.70 - 6.10 /CUMM) 3.56 L Hgb (14.0 - 18.0 G/DL) 10.8 L Hct (42 - 52 %) 32.2 L MCV (80.0 - 94.0 FL) 90.6 MCH (27.0 - 31.0 PG) 30.5 RDW (11.5 - 14.5 %) 13.2 Plt Count (130 - 400 /CUMM) 359 MPV (7.4 - 10.4 FL) 8.2 Gran % (42.2 - 75.2 %) 84.7 H Lymphocytes % (20.5 - 51.1 %) 6.6 L Monocytes % (1.7 - 9.3 %) 8.0 Eosinophils % (0 - 5 %) 0.3 Basophils % (0.0 - 2.0 %) 0.4 Absolute Granulocytes (1.4 - 6.5 /CUMM) 17.7 H Segmented Neutrophils (42.2 - 75.2 %) 76 H Band Neutrophils (0.0 - 5.0 %) 10 H Absolute Lymphocytes (1.2 - 3.4 /CUMM) 1.4 Lymphocytes (20.5 - 51.1 %) 8 L Monocytes (1.7 - 9.3 %) 3 Absolute Monocytes (0.10 - 0.60 /CUMM) 1.7 H Absolute Eosinophils (0.0 - 0.7 /CUMM) 0.1 Absolute Basophils (0.0 - 0.2 /CUMM) 0.1 Metamyelocytes (0.0 - 1.0 %) 1 Myelocytes (0 - 0 %) 2 H Platelet Estimate (ADEQUATE) ADEQUATE Normocytic RBCs VERIFIED Normochromic RBCs VERIFIED PUBS MCHC (33.0 - 37.0 G/DL) 33.6 Last 24 Hours of Ramin Results: No recent cultures Assessment/Plan Impression: Stable status post further debridement of the right foot earlier today for polymicrobial osteomyelitis, now 6 days status post initial surgery for open partial first ray resection, with I&D of a retrocalcaneal abscess of the right foot also performed today. He remains afebrile with persistent leukocytosis likely secondary to residual infection in the right foot now on Unasyn for Group B strep sepsis and Group B strep, Escherichia coli and Bacteroides fragilis isolated from the OR cultures. Suggestion: 1. Further management of his right foot with wound VAC placement per Podiatry 2. Recheck ESR in the a.m. 3. Continue Unasyn
[2016-05-05 16:05] VITALS: BP 160/98
[2016-05-05 22:49] VITALS: BP 148/90
[2016-05-06 06:50] VITALS: BP 132/70
--- NOTE | 2016-05-06 07:38 | PN- Medicine Consult ---
LEONID JIMENEZ 05/06/16 0728: Assessment/Plan Assessment/Plan Assessment: This is a 45-year-old Obese man with past medical history of poorly controlled diabetes, hypertension, chronic non healing ulcer of plantar aspect of his right foot status post multiple debridements in past by Dr. Dowd, history of multi loculated abscess in posterior neck status post I&D in 2016, history of C. difficile and obstructive sleep apnea not using CPAP anymore. 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 He was admitted for debridement and IV antibiotics. Plan: Sepsis secondary to chronic nonhealing ulcer of right foot now with cellulitis and gas gangrene status post excisional debridement and first ray resection right foot. He was tachycardic with WBC count 24.2 with 8 bands on admission. White count bumped yesterday to 20.9 from 18.0 yesterday. Patient on IV unasyl, has remained afebril andunderwent open incision and drainage deep to the D fashion with exposure of the Achilles tendon tendon sheath multiple sites both proximally and distally right leg, revisional partial first ray resection right foot, and excisional debridement yesterday May 05. Acute kidney injury It has resolved. Creatinine down to 0.6 from a maximum of 1.9. Labs from this morning are pending History of poorly controlled diabetes mellitus Patient started on diabetic diet and is on insulin sliding scale. HbA1c 12.0. Patient follows with Dr. Azul thank you for recommendations. Continue with Accu- Cheks and insulin. Overnight fingersticks shows a glucose of 258, 258, 258 and FSG is 105, patient on Novolog insulin sliding scale,and Levemir. Follow-up endocrinology consult recommendations. Will discontiue IVF as he is now eating. History of hypertension Patient has history of hypertension he is on amlodipine 5 mg daily. Blood pressure consistently elevated 140/80. Would consider restarting Lisinopril at a lower dose 20 mg daily, which was held b/c of KEE. Subjective Subjective: Patient nghia dn examined at [facility]. He underwent open and drainage deep to the D fashion with exposure of the Achilles tendon tendon sheath multiple sites both proximally and distally right leg, revisional partial first ray resection right foot, and excisional debridement yesterday 05/05/16. Denies pain, and his Tmax was 990.0F last night. Offers no other complaints. Review of Systems Constitutional: Denies: chills, fever. EENTM: Denies: visual changes. Cardiovascular: Denies: chest pain, palpitations. Respiratory: Denies: cough, short of breath, sputum production. Gastrointestinal: Denies: abdominal pain, constipation, diarrhea, nausea, vomiting. Genitourinary: Reports: no symptoms. Musculoskeletal: Reports: no symptoms. Neurological/Psychological: Denies: headache, numbness, tingling, tremors. Objective Last 24 Hrs of Vital Signs/I&O Vital Signs Date Time Temp Pulse Resp B/P Pulse O2 O2 Flow FiO2 Ox Delivery Rate 05/06 0650 98.2 104 20 132/70 95 Room Air 05/05 2249 99.0 110 22 148/90 95 Room Air 05/05 1700 92 Room Air 05/05 1605 160/98 05/05 1436 102 170/100 05/05 1420 102 18 170/100 96 Nasal 2.0L Cannula 05/05 0749 97.9 98 24 154/96 97 Room Air Intake & Output 05/06 0800 05/06 0000 05/05 1600 Intake Total 1400 150 Output Total 2100 Balance -700 150 Intake, IV 600 150 Intake, Oral 800 0 Number 1 1 Bowel Movements Output, Urine 2100 Physical Exam General Appearance: no apparent distress, alert, awake, obese Head: atraumatic, normal appearance Neck: normal inspection, supple Cardiovascular: regular rate/rhythm Respiratory: normal breath sounds, chest non-tender Abdomen: normal bowel sounds, soft, non-tender Extremities: HAS TRACE EDEMA OF LOWER EXTREMETIES B/L. RIGHT LOWER EXTREMITY WRAPPED IN WOUND DRESSING. Neurologic/Psychiatric: no motor/sensory deficits, awake, alert, oriented x 3 Current Medications: Current Medications Sig/Angela Start time Last Medication Dose Route Stop Time Status Admin Acetaminophen 650 MG Q6-PRN PRN 04/29 2014 AC PO Amlodipine Besylate 5 MG DAILY 04/30 1000 AC 05/05 PO 1436 Ampicillin Sodium/ 3,000 MG Q6H 05/05 2000 AC 05/06 Sulbactam Sodium IV 0155 Sodium Chloride 100 ML Ampicillin Sodium/ 3,000 MG Q6H 05/03 1600 DC 05/05 Sulbactam Sodium IV 1434 Sodium Chloride 100 ML Atorvastatin Calcium 20 MG DAILY 04/30 1000 AC 05/05 PO 1436 Fentanyl Citrate 100 MCG .STK-MED ONE 05/05 1138 DC IM 05/05 1139 Fentanyl Citrate 100 MCG .STK-MED ONE 05/05 1056 DC IM 05/05 1057 Hydromorphone HCl 2 MG .STK-MED ONE 05/05 1311 DC IM 05/05 1312 Hydromorphone HCl 2 MG .STK-MED ONE 05/05 1256 DC IM 05/05 1257 Hydromorphone HCl 2 MG .STK-MED ONE 05/05 1156 DC IM 05/05 1157 Insulin Aspart 0 TIDAC/HS 05/05 1515 05/05 SC 2157 Insulin Detemir 30 UNITS BID 05/05 2200 05/05 SC 2157 Insulin Detemir 15 UNITS AT BEDTIME 05/04 2200 NM 05/04 SC 2141 Insulin Human Regular 0 Q6 05/04 2015 NM 05/05 SC 1435 Meperidine HCl 50 MG .STK-MED ONE 05/05 1308 DC IM 05/05 1309 Midazolam HCl 2 MG .STK-MED ONE 05/05 1056 DC IM 05/05 1057 Oxycodone HCl 5 MG Q4-PRN PRN 04/29 2030 05/05 PO 2157 Polyethylene Glycol 17 GM DAILY 04/30 1145 05/05 PO 1436 Sodium Chloride 1,000 ML Q6H 05/01 1500 DC 05/06 IV 0300 Results Last 24 Hrs Lab/Ramin Results: Laboratory Tests 05/06/16 0545: Sodium Pending, Potassium Pending, Chloride Pending, Carbon Dioxide Pending, Anion Gap Pending, BUN Pending, Creatinine Pending, BUN/Creatinine Ratio Pending , CBC w Diff Pending, WBC Pending, RBC Pending, Hgb Pending, Hct Pending, MCV Pending, MCH Pending, RDW Pending, Plt Count Pending, MPV Pending, PUBS MCHC Pending 05/05/16 0915: Anion Gap 6, Estimated GFR > 60, BUN/Creatinine Ratio 13.3, CBC w Diff MAN DIFF ORDERED, RBC 3.56 L, MCV 90.6, MCH 30.5, RDW 13.2, MPV 8.2, Gran % 84.7 H, Lymphocytes % 6.6 L, Monocytes % 8.0, Eosinophils % 0.3, Basophils % 0.4, Absolute Granulocytes 17.7 H, Segmented Neutrophils 76 H, Band Neutrophils 10 H, Absolute Lymphocytes 1.4, Lymphocytes 8 L, Monocytes 3, Absolute Monocytes 1.7 H, Absolute Eosinophils 0.1, Absolute Basophils 0.1, Metamyelocytes 1, Myelocytes 2 H, Platelet Estimate ADEQUATE, Normocytic RBCs VERIFIED, Normochromic RBCs VERIFIED, PUBS MCHC 33.6 GINGER TSE MD 05/06/16 1031: Attending MD Review Statement Attending Sign Off Attending Cosign Statement: I have: examined this patient, reviewed [facility] E[facility] data, personally reviewd images, discussd w/resident/PA/CHIPPING MACHINE OPERATOR, amended to note. Other Findings: The patient was seen and discussed with house staff. Agree with the plan of care as outlined. Await podiatry input. Copious drainage from RLE wound ( serosanguineous) noted.
[2016-05-06 07:59] LABS: ABSOLUTE BASOPHIL COUNT 0 /CUMM (0.0-0.2); ABSOLUTE EOSINOPHIL COUNT 0.1 /CUMM (0.0-0.7); ABSOLUTE GRANULOCYTE CT 21.5 /CUMM (1.4-6.5); ABSOLUTE LYMPH COUNT 1.7 /CUMM (1.2-3.4); ABSOLUTE MONOCYTE COUNT 1.3 /CUMM (0.10-0.60); BASOPHIL % 0.1 % (0.0-2.0); EOSINOPHIL % 0.5 % (0-5); GRANULOCYTE % 87.5 % (42.2-75.2); HEMATOCRIT 31.6 % (42-52); MEAN CORPUSCULAR HGB 30.6 PG (27.0-31.0); MEAN CORPUSCULAR HGB CONC 33.7 G/DL (33.0-37.0); MEAN CORPUSCULAR VOLUME 90.6 FL (80.0-94.0); MEAN PLATELET VOLUME 8.4 FL (7.4-10.4); PLATELET COUNT 376 /CUMM (130-400); RBC DISTRIBUTION WIDTH 13.5 % (11.5-14.5); RED BLOOD CELL CT 3.49 /CUMM (4.70-6.10)
--- NOTE | 2016-05-06 08:22 | PN- Diabetes ---
Assessment/Plan Assessment: 45-year-old Obese man with past medical history of poorly controlled diabetes type 2 with HbA1c of 12%, was admitted for diabetic right foot infection with cellulitis of right lower extremity and positive blood culture of gram positive cocci. He underwent more procedures on his right foot on 05/05/2016. He received Levemir 30 units last night. He is on Novolog coverage before meals and Novolog coverage at bedtime. Currently Levemir 25 units twice a day was ordered. His FSGs were 114, 136, 176, 170, 159, 258 and 105. Plan: 1. adjust Levemir to 20 units twice a day today; 2. continue the current Novolog coverage before meals and Novolog coverage at bedtime; 3. monitor FSGs. will follow. Subjective Subjective: He has no special complaints at this point. Objective Last 24 Hrs of Vital Signs/I&O Vital Signs Date Time Temp Pulse Resp B/P Pulse O2 O2 Flow FiO2 Ox Delivery Rate 05/06 0650 98.2 104 20 132/70 95 Room Air 05/05 2249 99.0 110 22 148/90 95 Room Air 05/05 1700 92 Room Air 05/05 1605 160/98 05/05 1436 102 170/100 05/05 1420 102 18 170/100 96 Nasal 2.0L Cannula Intake & Output 05/06 1600 05/06 0800 05/06 0000 Intake Total 1400 Output Total 2100 Balance -700 Intake, IV 600 Intake, Oral 800 Number 1 Bowel Movements Output, Urine 2100 Findings Pertinent Lab/Ramin Results: Laboratory Tests 05/06 05/05 0545 0915 Chemistry Sodium (137 - 145 mmol/L) 134 L 136 L Potassium (3.5 - 5.1 mmol/L) 3.5 4.0 Chloride (98 - 107 mmol/L) 100 102 Carbon Dioxide (22 - 30 mmol/L) 24 28 Anion Gap (5 - 16) 11 6 BUN (9 - 20 mg/dL) 7 L 8 L Creatinine (0.7 - 1.2 mg/dL) 0.5 L 0.6 L Estimated GFR (>60 ml/min) > 60 > 60 BUN/Creatinine Ratio (7 - 25 %) 14.0 13.3 Hematology CBC w Diff Pending MAN DIFF ORDERED WBC (4.8 - 10.8 /CUMM) Pending 20.9 H RBC (4.70 - 6.10 /CUMM) Pending 3.56 L Hgb (14.0 - 18.0 G/DL) Pending 10.8 L Hct (42 - 52 %) Pending 32.2 L MCV (80.0 - 94.0 FL) Pending 90.6 MCH (27.0 - 31.0 PG) Pending 30.5 RDW (11.5 - 14.5 %) Pending 13.2 Plt Count (130 - 400 /CUMM) Pending 359 MPV (7.4 - 10.4 FL) Pending 8.2 Gran % (42.2 - 75.2 %) Pending 84.7 H Lymphocytes % (20.5 - 51.1 %) Pending 6.6 L Monocytes % (1.7 - 9.3 %) Pending 8.0 Eosinophils % (0 - 5 %) Pending 0.3 Basophils % (0.0 - 2.0 %) Pending 0.4 Absolute Granulocytes (1.4 - 6.5 /CUMM) Pending 17.7 H Segmented Neutrophils (42.2 - 75.2 %) 76 H Band Neutrophils (0.0 - 5.0 %) 10 H Absolute Lymphocytes (1.2 - 3.4 /CUMM) Pending 1.4 Lymphocytes (20.5 - 51.1 %) 8 L Monocytes (1.7 - 9.3 %) 3 Absolute Monocytes (0.10 - 0.60 /CUMM) Pending 1.7 H Absolute Eosinophils (0.0 - 0.7 /CUMM) Pending 0.1 Absolute Basophils (0.0 - 0.2 /CUMM) Pending 0.1 Metamyelocytes (0.0 - 1.0 %) 1 Myelocytes (0 - 0 %) 2 H Platelet Estimate (ADEQUATE) ADEQUATE Normocytic RBCs VERIFIED Normochromic RBCs VERIFIED PUBS MCHC (33.0 - 37.0 G/DL) Pending 33.6
[2016-05-06 09:22] LABS: WHITE BLOOD CELL COUNT 24.5 /CUMM (4.8-10.8)
--- NOTE | 2016-05-06 12:30 | PN- Infect Dx ---
Subjective Subjective: Afebrile. He has minimal pain in the right foot. He has no specific complaints otherwise, though does note a slight, dry cough and soft stools. Objective Last 24 Hrs of Vital Signs/I&O Vital Signs Date Time Temp Pulse Resp B/P Pulse O2 O2 Flow FiO2 Ox Delivery Rate 05/06 1008 102 145/84 05/06 1007 102 145/84 05/06 0650 98.2 104 20 132/70 95 Room Air 05/05 2249 99.0 110 22 148/90 95 Room Air 05/05 1700 92 Room Air 05/05 1605 160/98 05/05 1436 102 170/100 05/05 1420 102 18 170/100 96 Nasal 2.0L Cannula Intake & Output 05/06 1600 05/06 0800 05/06 0000 Intake Total 600 1400 Output Total 1000 2100 Balance -400 -700 Intake, IV 600 600 Intake, Oral 0 800 Number 0 1 Bowel Movements Output, Urine 1000 2100 Physical Exam Other Physical Findings: He appears comfortable in no acute distress Skin no rash Lungs are clear Heart regular rhythm with no murmur Abdomen obese, soft, nontender with positive bowel sounds Extremities right foot dressing intact Results Last 24 Hours of Lab Results: Laboratory Tests 05/06 05/06 1020 0545 Chemistry Sodium (137 - 145 mmol/L) 134 L Potassium (3.5 - 5.1 mmol/L) 3.5 Chloride (98 - 107 mmol/L) 100 Carbon Dioxide (22 - 30 mmol/L) 24 Anion Gap (5 - 16) 11 BUN (9 - 20 mg/dL) 7 L Creatinine (0.7 - 1.2 mg/dL) 0.5 L Estimated GFR (>60 ml/min) > 60 BUN/Creatinine Ratio (7 - 25 %) 14.0 Hematology CBC w Diff NO MAN DIFF REQ WBC (4.8 - 10.8 /CUMM) 24.5 H RBC (4.70 - 6.10 /CUMM) 3.49 L Hgb (14.0 - 18.0 G/DL) 10.7 L Hct (42 - 52 %) 31.6 L MCV (80.0 - 94.0 FL) 90.6 MCH (27.0 - 31.0 PG) 30.6 RDW (11.5 - 14.5 %) 13.5 Plt Count (130 - 400 /CUMM) 376 MPV (7.4 - 10.4 FL) 8.4 Gran % (42.2 - 75.2 %) 87.5 H Lymphocytes % (20.5 - 51.1 %) 6.7 L Monocytes % (1.7 - 9.3 %) 5.2 Eosinophils % (0 - 5 %) 0.5 Basophils % (0.0 - 2.0 %) 0.1 Absolute Granulocytes (1.4 - 6.5 /CUMM) 21.5 H Absolute Lymphocytes (1.2 - 3.4 /CUMM) 1.7 Absolute Monocytes (0.10 - 0.60 /CUMM) 1.3 H Absolute Eosinophils (0.0 - 0.7 /CUMM) 0.1 Absolute Basophils (0.0 - 0.2 /CUMM) 0 PUBS MCHC (33.0 - 37.0 G/DL) 33.7 ESR Westergren Pending Last 24 Hours of Ramin Results: No recent cultures Recent Imaging Studies: Chest x-ray May 04 mild pulmonary venous congestion Assessment/Plan Impression: Persistent leukocytosis despite continued treatment with Unasyn for right foot polymicrobial osteomyelitis, status post drainage of a retrocalcaneal abscess and further debridement of the right foot yesterday, now 1 week status post initial partial first ray resection. He has no other obvious focus of infection but, with Group B strep isolated from the blood, the possibility of seeding other areas, including the heart valves, may need to be considered, particularly if his white blood cell count remains elevated. Suggestion: 1. Repeat blood cultures 2 2. Urine culture 3. Stool C. difficile if diarrhea 4. Echocardiogram 5. Consider CT of the abdomen and pelvis if white blood cell count remains elevated 6. Continue Unasyn
--- NOTE | 2016-05-06 17:24 | PN- Podiatry ---
Subjective Subjective: Patient seen at bedside without any new acute complaints overnight. Patient denies nausea vomiting fever chills chest pain or shortness of breath. He is admitted to some posterior right leg pain. Objective Vital Signs and I&Os Vital Signs Date Time Temp Pulse Resp B/P Pulse O2 O2 Flow FiO2 Ox Delivery Rate 05/06 1008 102 145/84 05/06 1007 102 145/84 05/06 0650 98.2 104 20 132/70 95 Room Air 05/05 2249 99.0 110 22 148/90 95 Room Air Intake & Output 05/06 1600 05/06 0800 05/06 0000 05/05 1600 05/05 0800 05/05 0000 Intake Total 0183 719 2262 947 866 2391 Output Total 1700 1000 2100 1000 1800 Balance 50 -400 -700 150 -400 -550 Intake, IV 250 600 600 150 600 800 Intake, Oral 1500 0 800 0 0 450 Number 1 0 1 1 1 2 Bowel Movements Output, Urine 1700 1000 2100 1000 1800 Physical Exam: Dressing right leg with significant strikethrough identified posteriorly. Wound bed and noted to be improved no active purulence identified. No maikol necrosis identified. Assessment/Plan Assessment/Plan Cellulitis and osteomyelitis right lower extremity. Continue IV antibiotics. Daily wet-to-dry dressing changes. Follow-up new blood cultures. If leukocytosis persists, will order additional imaging of the right lower extremity. Core Measures/Miscellaneous Venous Thromboembolism VTE Risk Factors: Age > 40, Obesity, Surgery VTE Contraindications: No Contraindications VTE Prophylaxis Ordered Inpt: Pharm- Heparin VTE Diagnosis: No Beta Rome Is Beta Rome a Home Med? No Antibiotics Is Patient on Antibiotics? Yes If Yes: infection Attending MD Review Statement Attending Statement Attending MD Statement: examined this patient
[2016-05-06 18:05] VITALS: BP 138/80
[2016-05-06 22:37] VITALS: BP 130/70
[2016-05-07 06:50] VITALS: BP 160/100
--- NOTE | 2016-05-07 07:49 | PN- Medicine Consult ---
LEONID JIMENEZ 05/07/16 0737: Assessment/Plan Assessment/Plan Assessment: This is a 45-year-old Obese man with past medical history of poorly controlled diabetes, hypertension, chronic non healing ulcer of plantar aspect of his right foot status post multiple debridements in past by Dr. Dowd, history of multi loculated abscess in posterior neck status post I&D in 2016, history of C. difficile and obstructive sleep apnea not using CPAP anymore. 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 He was admitted for debridement and IV antibiotics. Plan: Sepsis secondary to chronic nonhealing ulcer of right foot now with cellulitis and gas gangrene status post excisional debridement and first ray resection right foot. He was tachycardic with WBC count 24.2 with 8 bands on admission. White count continues to bump to 24.5 from 20.9 the day prior. Labs from this AM pending. Patient on IV unasyn as per ID, has remained afebril andunderwent open incision and drainage deep to the D fashion with exposure of the Achilles tendon tendon sheath multiple sites both proximally and distally right leg, revisional partial first ray resection right foot, and excisional debridement on May 05. Leukocytosis 2/2 osteo vs C. Diff given patient had diarrhea yesterday vs endocarditis, vs any other intra-abdominal abscess Labs from this AM pending. Of note his ESR is also high to 130 from 113 previously - F/U stool for C. Diff toxin, repeat Blood cultures (1 set was drawn from PICC line as he is a hard stick) - Scheduled for an Echo to r/o endocarditis. - ID recs appreciated. - If labs show worsening leukocytosis will consider CT of Abd/Pelvis Acute kidney injury It has resolved. Creatinine down to 0.5 from a maximum of 1.9. Labs from this morning are pending. History of poorly controlled diabetes mellitus Patient started on diabetic diet and is on insulin sliding scale. HbA1c 12.0. Patient follows with Dr. Azul thank you for recommendations. Continue with Accu- Cheks and insulin. Overnight fingersticks shows a glucose of 137, 132, 167, patient on Novolog insulin sliding scale,and Levemir. Follow-up endocrinology consult recommendations. History of hypertension Patient has history of hypertension he is on amlodipine 5 mg daily. Blood pressure consistently elevated 160/100. Would increase Lisinopril to 40 mg daily , which is his home dose which was held b/c of KEE. Subjective Subjective: Patient seen and examined at bedside. He offers no complaints. Tmax 99.1F. Review of Systems Constitutional: Denies: chills, fever. EENTM: Denies: visual changes. Cardiovascular: Denies: chest pain, palpitations. Respiratory: Denies: cough, short of breath, sputum production. Gastrointestinal: Denies: abdominal pain, nausea, vomiting. Genitourinary: Reports: no symptoms. Musculoskeletal: Reports: no symptoms. Neurological/Psychological: Denies: headache, numbness, tingling, tremors. Objective Last 24 Hrs of Vital Signs/I&O Vital Signs Date Time Temp Pulse Resp B/P Pulse O2 O2 Flow FiO2 Ox Delivery Rate 05/07 0650 97.4 97 20 160/100 95 Room Air 05/07 0000 93 Room Air 05/06 2237 99.1 102 20 130/70 93 Room Air 05/06 1805 97.6 94 20 138/80 94 Room Air 05/06 1008 102 145/84 05/06 1007 102 145/84 Intake & Output 05/07 0800 05/07 0000 05/06 1600 Intake Total 240 1750 Output Total 1700 Balance 240 50 Intake, IV 250 Intake, Oral 240 1500 Number 1 1 Bowel Movements Output, Urine 1700 Physical Exam General Appearance: no apparent distress, alert, awake, obese Head: atraumatic Neck: normal inspection, supple Cardiovascular: regular rate/rhythm Respiratory: normal breath sounds, chest non-tender, no respiratory distress, quiet respiration, lungs clear Abdomen: normal bowel sounds, soft, non-tender Extremities: Right leg wrapped in wound dressing, left extremity, trace edema Neurologic/Psychiatric: no motor/sensory deficits, awake, alert, oriented x 3 Current Medications: Current Medications Sig/Angela Start time Last Medication Dose Route Stop Time Status Admin Acetaminophen 650 MG Q6-PRN PRN 04/29 2014 AC PO Amlodipine Besylate 5 MG DAILY 04/30 1000 AC 05/06 PO 1007 Ampicillin Sodium/ 3,000 MG Q6H 05/05 1999 AC 05/07 Sulbactam Sodium IV 0203 Sodium Chloride 100 ML Atorvastatin Calcium 20 MG DAILY 04/30 1000 AC 05/06 PO 1006 Calcium Carbonate 500 MG ONCE ONE 05/07 0515 DC 05/07 PO 05/07 0516 0506 Insulin Aspart 0 TIDAC/HS 05/05 1515 AC 05/06 SC 1248 Insulin Detemir 25 UNITS BID 05/06 1000 DC SC Insulin Detemir 20 UNITS BID 05/06 1000 AC 05/06 SC 2110 Insulin Detemir 30 UNITS BID 05/05 2200 DC 05/05 SC 2157 Lisinopril 40 MG DAILY 05/07 1000 AC PO Lisinopril 20 MG DAILY 05/06 1000 DC 05/06 PO 1008 Morphine Sulfate 4 MG ONCE ONE 05/06 1730 DC 05/06 IV 05/06 1731 1700 Oxycodone HCl 5 MG Q4-PRN PRN 04/29 2030 AC 05/07 PO 0213 Patient Medication 1 ED .STK-MED ONE 05/06 1406 PA Teaching ED 05/06 1407 Polyethylene Glycol 17 GM DAILY 04/30 1145 AC 05/06 PO 1007 Results Last 24 Hrs Lab/Ramin Results: Laboratory Tests 05/07/16 0500: Sodium Pending, Potassium Pending, Chloride Pending, Carbon Dioxide Pending, Anion Gap Pending, BUN Pending, Creatinine Pending, BUN/Creatinine Ratio Pending , CBC w Diff Pending, WBC Pending, RBC Pending, Hgb Pending, Hct Pending, MCV Pending, MCH Pending, RDW Pending, Plt Count Pending, MPV Pending, PUBS MCHC Pending 05/06/16 1020: ESR Westergren > 130 H Microbiology 05/07 0435 STOOL: Clostridium difficile Toxin A & B - RECD 05/06 1705 BLOOD: Blood Culture - RECD 05/06 1556 BLOOD: Blood Culture - CAN Cancelled: Cancelled via OE: 2ND LINE NOT FIRST 05/06 1530 BLOOD: Blood Culture - RECD 05/06 1435 URINE ROUT: Urine Culture - RECD 05/06 1406 BLOOD: Blood Culture - CAN Cancelled: Cancelled via OE: DRAW THROUGH PICC GINGER TSE MD 05/07/16 1455: Attending MD Review Statement Attending Sign Off Attending Cosign Statement: I have: examined this patient, reviewed avalbl EMR data, discussd w/resident/PA/ RUBY ENGINEER, discussed mgmt plan w/bob, discussed mgmt plan w/pt, agreed w/resident/PA/ RUBY ENGINEER. Other Findings: The patient was seen and discussed with house staff. Agree with the plan of care as outlined. Await further Podiatry/ID input.
[2016-05-07 07:50] LABS: ABSOLUTE BASOPHIL COUNT 0 /CUMM (0.0-0.2); ABSOLUTE EOSINOPHIL COUNT 0.2 /CUMM (0.0-0.7); ABSOLUTE LYMPH COUNT 1.7 /CUMM (1.2-3.4); ABSOLUTE MONOCYTE COUNT 1.3 /CUMM (0.10-0.60); BASOPHIL % 0.1 % (0.0-2.0); EOSINOPHIL % 0.8 % (0-5); GRANULOCYTE % 84.2 % (42.2-75.2); HEMATOCRIT 33.5 % (42-52); MEAN CORPUSCULAR HGB 30.4 PG (27.0-31.0); MEAN CORPUSCULAR HGB CONC 33.1 G/DL (33.0-37.0); MEAN CORPUSCULAR VOLUME 91.8 FL (80.0-94.0); MEAN PLATELET VOLUME 8.1 FL (7.4-10.4); PLATELET COUNT 405 /CUMM (130-400); RBC DISTRIBUTION WIDTH 13.9 % (11.5-14.5); RED BLOOD CELL CT 3.65 /CUMM (4.70-6.10)
--- NOTE | 2016-05-07 08:15 | PN- Diabetes ---
Assessment/Plan Assessment: 45-year-old Obese man with past medical history of poorly controlled diabetes type 2 with HbA1c of 12%, was admitted for diabetic right foot infection with cellulitis of right lower extremity and positive blood culture of gram positive cocci. He underwent more procedures on his right foot on 05/05/2016. Currently he is on Levemir 20 units twice a day. Novolog coverage before meals and Novolog coverage at [facility]. His FSGs were 105, 137, 132, 167 and 120. Plan: continue the current insulin regien for now. mnitor FSGs. replete K. will follow. Subjective Subjective: His WBC is up to 24 with ESR > 130. T max is 99.1. Objective Last 24 Hrs of Vital Signs/I&O Vital Signs Date Time Temp Pulse Resp B/P Pulse O2 O2 Flow FiO2 Ox Delivery Rate 05/07 0650 97.4 97 20 160/100 95 Room Air 05/07 0000 93 Room Air 05/06 2237 99.1 102 20 130/70 93 Room Air 05/06 1805 97.6 94 20 138/80 94 Room Air 05/06 1008 102 145/84 05/06 1007 102 145/84 Intake & Output 05/07 1600 05/07 0800 05/07 0000 Intake Total 500 240 Output Total 600 Balance -100 240 Intake, IV 150 Intake, Oral 350 240 Number 3 Bowel Movements Output, Urine 600 Findings Pertinent Lab/Ramin Results: Laboratory Tests 05/07 05/06 0500 1020 Chemistry Sodium (137 - 145 mmol/L) 136 L Potassium (3.5 - 5.1 mmol/L) 3.1 L Chloride (98 - 107 mmol/L) 99 Carbon Dioxide (22 - 30 mmol/L) 26 Anion Gap (5 - 16) 11 BUN (9 - 20 mg/dL) 6 L Creatinine (0.7 - 1.2 mg/dL) 0.5 L Estimated GFR (>60 ml/min) > 60 BUN/Creatinine Ratio (7 - 25 %) 12.0 Hematology CBC w Diff Pending WBC Pending RBC Pending Hgb Pending Hct Pending MCV Pending MCH Pending RDW Pending Plt Count Pending MPV Pending Gran % Pending Lymphocytes % Pending Monocytes % Pending Eosinophils % Pending Basophils % Pending Absolute Granulocytes Pending Absolute Lymphocytes Pending Absolute Monocytes Pending Absolute Eosinophils Pending Absolute Basophils Pending PUBS MCHC Pending ESR Westergren (0 - 10 MM) > 130 H
[2016-05-07 09:06] LABS: WHITE BLOOD CELL COUNT 20.1 /CUMM (4.8-10.8)
[2016-05-07 14:47] VITALS: BP 144/88
--- NOTE | 2016-05-07 15:06 | PN- Infect Dx ---
Subjective Subjective: Afebrile. He has minimal discomfort in the right foot. He does note soft stools. Objective Last 24 Hrs of Vital Signs/I&O Vital Signs Date Time Temp Pulse Resp B/P Pulse O2 O2 Flow FiO2 Ox Delivery Rate 05/07 1447 98.1 97 20 144/88 95 Room Air 03/ 0954 100 145/80 03/ 0953 100 145/80 03/ 0650 97.4 97 20 160/100 95 Room Air 03/ 0000 93 Room Air 05/06 2237 99.1 102 20 130/70 93 Room Air 05/06 1805 97.6 94 20 138/80 94 Room Air Intake & Output 05/07 1600 / 0800 05/07 0000 Intake Total 1500 240 Output Total 1075 Balance 425 240 Intake, IV 150 Intake, Oral 1350 240 Number 5 Bowel Movements Output, Stool 450 Output, Urine 625 Physical Exam Other Physical Findings: He appears comfortable in no acute distress Lungs are clear Heart regular rhythm with no murmur Abdomen is soft, nontender with positive bowel sounds Extremities right foot dressing intact; PICC in the right upper extremity with no inflammation at the site Results Last 24 Hours of Lab Results: Laboratory Tests 05/07 0500 Chemistry Sodium (137 - 145 mmol/L) 136 L Potassium (3.5 - 5.1 mmol/L) 3.1 L Chloride (98 - 107 mmol/L) 99 Carbon Dioxide (22 - 30 mmol/L) 26 Anion Gap (5 - 16) 11 BUN (9 - 20 mg/dL) 6 L Creatinine (0.7 - 1.2 mg/dL) 0.5 L Estimated GFR (>60 ml/min) > 60 BUN/Creatinine Ratio (7 - 25 %) 12.0 Hematology CBC w Diff NO MAN DIFF REQ WBC (4.8 - 10.8 /CUMM) 20.1 H RBC (4.70 - 6.10 /CUMM) 3.65 L Hgb (14.0 - 18.0 G/DL) 11.1 L Hct (42 - 52 %) 33.5 L MCV (80.0 - 94.0 FL) 91.8 MCH (27.0 - 31.0 PG) 30.4 RDW (11.5 - 14.5 %) 13.9 Plt Count (130 - 400 /CUMM) 405 H MPV (7.4 - 10.4 FL) 8.1 Gran % (42.2 - 75.2 %) 84.2 H Lymphocytes % (20.5 - 51.1 %) 8.6 L Monocytes % (1.7 - 9.3 %) 6.3 Eosinophils % (0 - 5 %) 0.8 Basophils % (0.0 - 2.0 %) 0.1 Absolute Granulocytes (1.4 - 6.5 /CUMM) 17.0 H Absolute Lymphocytes (1.2 - 3.4 /CUMM) 1.7 Absolute Monocytes (0.10 - 0.60 /CUMM) 1.3 H Absolute Eosinophils (0.0 - 0.7 /CUMM) 0.2 Absolute Basophils (0.0 - 0.2 /CUMM) 0 PUBS MCHC (33.0 - 37.0 G/DL) 33.1 Last 24 Hours of Ramin Results: Blood cultures 2 May 06 negative Urine culture May 06 negative Stool C. difficile May 07 negative Assessment/Plan Impression: Overall stable with temperatures remaining normal but with persistent leukocytosis, slightly improved from yesterday, despite continued treatment with Unasyn for Group B strep sepsis secondary to right foot polymicrobial osteomyelitis, status post drainage of a retrocalcaneal abscess and further debridement of the right foot 2 days ago, now 8 days status post initial partial first ray resection. He has no other obvious focus of infection and, after discussion with Podiatry, suspect that the leukocytosis is all secondary to the right foot, but, with Group B strep isolated from the blood, the possibility of seeding other areas, including the heart valves, may need to be considered. Suggestion: 1. Follow-up echocardiogram 2. Consider CT of the abdomen and pelvis if white blood cell count remains elevated 3. Continue Unasyn
--- NOTE | 2016-05-07 16:54 | PN- Podiatry ---
Subjective Subjective: Patient seen at bedside feeling better. Patient denies nausea vomiting fever chills. Patient admits to minimal right foot and leg pain. Objective Vital Signs and I&Os Vital Signs Date Time Temp Pulse Resp B/P Pulse O2 O2 Flow FiO2 Ox Delivery Rate 05/07 1447 98.1 97 20 144/88 95 Room Air 03/ 0954 100 145/80 03/ 0953 100 145/80 03/ 0650 97.4 97 20 160/100 95 Room Air 03/ 0000 93 Room Air 05/06 2237 99.1 102 20 130/70 93 Room Air 05/06 1805 97.6 94 20 138/80 94 Room Air Intake & Output 05/07 1600 05/07 0800 05/07 0000 05/06 1600 05/06 0800 05/06 0000 Intake Total 1000 7988 236 6282 600 1400 Output Total 1350 1075 1700 1000 2100 Balance -350 425 240 50 -400 -700 Intake, IV 150 250 600 600 Intake, Oral 1000 6420 459 5171 0 800 Number 5 1 0 1 Bowel Movements Output, Stool 450 Output, Urine 1140 380 0825 1000 2100 Physical Exam: Some superficial serous drainage noted at the very superior posterior margin of the dressing. Persistent edema and cellulitis noted to the right lower extremity. Assessment/Plan Assessment/Plan Osteomyelitis and cellulitis right lower extremity. Patient nothing by mouth past midnight for washout and wound VAC tomorrow. Continue IV antibiotics per ID recommendations. Continue medical management per hospitalist service. Core Measures/Miscellaneous Venous Thromboembolism VTE Risk Factors: Age > 40, Obesity, Surgery VTE Contraindications: No Contraindications VTE Diagnosis: No Beta Rome Is Beta Rome a Home Med? No Antibiotics Is Patient on Antibiotics? Yes If Yes: infection Attending MD Review Statement Attending Statement Attending MD Statement: examined this patient
[2016-05-07 23:29] VITALS: BP 140/80
--- NOTE | 2016-05-08 07:26 | PN- Medicine Consult ---
LEONID JIMENEZ 05/08/16 0726: Assessment/Plan Assessment/Plan Assessment: This is a 45-year-old Obese man with past medical history of poorly controlled diabetes, hypertension, chronic non healing ulcer of plantar aspect of his right foot status post multiple debridements in past by Dr. Dowd, history of multi loculated abscess in posterior neck status post I&D in 2016, history of C. difficile and obstructive sleep apnea not using CPAP anymore. 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 He was admitted for debridement and IV antibiotics. Plan: Sepsis secondary to chronic nonhealing ulcer of right foot now with cellulitis and gas gangrene status post excisional debridement and first ray resection right foot. He was tachycardic with WBC count 24.2 with 8 bands on admission. White count continues to bump to 24.5 from 20.9 the day prior. Labs from this AM pending. Patient on IV unasyn as per ID, has remained afebril andunderwent open incision and drainage deep to the D fashion with exposure of the Achilles tendon tendon sheath multiple sites both proximally and distally right leg, revisional partial first ray resection right foot, and excisional debridement on May 05. Leukocytosis - Resolving - 2/2 osteo vs endocarditis, vs any other intra-abdominal abscess. His stool for C. Diff toxin was negative. - Labs from this AM pending. - Of note his ESR is also high to 130 from 113 previously - F/U final results of repeat Blood cultures (1 set was drawn from PICC line as he is a hard stick) - F/U Echo to r/o endocarditis. - ID recs appreciated. - If labs show worsening leukocytosis will consider CT of Abd/Pelvis Acute kidney injury It has resolved. Creatinine down to 0.5 from a maximum of 1.9. Labs from this morning are pending. History of poorly controlled diabetes mellitus Patient currently NPO and is on IVFs and Novolog sliding scale q4 as per Endo recs. we decreased Levemir to 10 units BID last evening as he is cuirrently NPO. HbA1c 12.0. Patient follows with Dr. Azul thank you for recommendations. Continue with Accu-Cheks and insulin. Overnight fingersticks shows a glucose of 104, 90, 90, 123. Follow-up endocrinology consult recommendations regarding his regimen after he returns from OR. History of hypertension Patient has history of hypertension he is on amlodipine 5 mg daily. Blood pressure better controlled 134/96. Continue Lisinopril to 40 mg daily. Subjective Subjective: [facility] He has no active complaints. Is currently NPO for return to OR for washout adn placement for wound vac today. Of note he hasnt had any further episodes of diarrhea, and his stool for C. Diff toxin is negative. Review of Systems Constitutional: Denies: chills, fever. EENTM: Denies: visual changes. Cardiovascular: Denies: chest pain, palpitations. Respiratory: Denies: cough, short of breath, sputum production. Gastrointestinal: Denies: abdominal pain, constipation, diarrhea, nausea, vomiting. Genitourinary: Reports: no symptoms. Musculoskeletal: Reports: no symptoms. Neurological/Psychological: Denies: headache, numbness, tingling, tremors. Objective Last 24 Hrs of Vital Signs/I&O Vital Signs Date Time Temp Pulse Resp B/P Pulse O2 O2 Flow FiO2 Ox Delivery Rate 05/07 2329 98.2 90 20 140/80 95 Room Air 05/07 1447 98.1 97 20 144/88 95 Room Air 05/07 0954 100 145/80 05/07 0953 100 145/80 Intake & Output 05/08 0800 05/08 0000 05/07 1600 Intake Total 100 2000 Output Total 1825 Balance 100 175 Intake, Oral 100 2000 Number 1 2 Bowel Movements Output, Stool 450 Output, Urine 1375 Physical Exam General Appearance: no apparent distress, alert, awake, obese Head: atraumatic, normal appearance Neck: normal inspection, supple Cardiovascular: regular rate/rhythm Respiratory: normal breath sounds, chest non-tender, no respiratory distress, quiet respiration, lungs clear Abdomen: normal bowel sounds, soft, non-tender Extremities: b/l lower extremity edema with wound dressing on RLE, which is soaking with serosanginuous fluid. Neurologic/Psychiatric: no motor/sensory deficits, awake, alert, oriented x 3 Current Medications: Current Medications Sig/Anglea Start time Last Medication Dose Route Stop Time Status Admin Acetaminophen 650 MG Q6-PRN PRN 04/29 2014 AC PO Amlodipine Besylate 5 MG DAILY 04/30 1000 AC 05/07 PO 0954 Ampicillin Sodium/ 3,000 MG Q6H 05/05 1999 AC 05/08 Sulbactam Sodium IV 0200 Sodium Chloride 100 ML Atorvastatin Calcium 20 MG DAILY 04/30 1000 AC 05/07 PO 0954 Dextrose/Sodium 1,000 ML Q13H 05/08 0000 AC 05/07 Chloride IV 2338 Insulin Aspart 0 Q4 05/08 0000 AC SC Insulin Aspart 0 TIDAC/HS 05/05 1515 DC 05/07 SC 05/08 0000 1724 Insulin Detemir 10 UNITS BID 05/07 2200 AC 05/07 SC 2104 Insulin Detemir 20 UNITS BID 05/06 1000 DC 05/07 SC 1000 Lisinopril 40 MG DAILY 05/07 1000 AC 05/07 PO 0953 Lisinopril 20 MG DAILY 05/06 1000 DC 05/06 PO 1008 Morphine Sulfate 4 MG DAILY 05/07 1134 AC 05/07 IV 1450 Oxycodone HCl 5 MG Q4-PRN PRN 04/29 2030 AC 05/07 PO 1005 Polyethylene Glycol 17 GM DAILY 04/30 1145 AC 05/06 PO 1007 Potassium Chloride 40 MEQ ONCE ONE 05/07 0945 DC 05/07 PO 05/07 0946 0952 Results Last 24 Hrs Lab/Ramin Results: Laboratory Tests 05/08 0736 Chemistry Sodium Pending Potassium Pending Chloride Pending Carbon Dioxide Pending Anion Gap Pending BUN Pending Creatinine Pending BUN/Creatinine Ratio Pending Hematology CBC w Diff Pending WBC Pending RBC Pending Hgb Pending Hct Pending MCV Pending MCH Pending RDW Pending Plt Count Pending MPV Pending PUBS MCHC Pending GINGER TSE MD 05/08/16 1734: Attending MD Review Statement Attending Sign Off Attending Cosign Statement: I have: examined this patient, reviewed avalbl EMR data, discussd w/resident/PA/ PROJECT/PRODUCTION MANAGER IMAGING, discussed mgmt plan w/CM, discussed mgmt plan w/pt, agreed w/resident/PA/PROJECT/PRODUCTION MANAGER IMAGING, amended to note. Other Findings: The patient was seen and discussed with house staff. Agree with plan of care as outlined.
[2016-05-08 07:39] VITALS: BP 134/96
[2016-05-08 08:11] LABS: ABSOLUTE BASOPHIL COUNT 0.1 /CUMM (0.0-0.2); ABSOLUTE EOSINOPHIL COUNT 0.2 /CUMM (0.0-0.7); ABSOLUTE GRANULOCYTE CT 12.9 /CUMM (1.4-6.5); ABSOLUTE LYMPH COUNT 1.3 /CUMM (1.2-3.4); ABSOLUTE MONOCYTE COUNT 1.1 /CUMM (0.10-0.60); BASOPHIL % 0.3 % (0.0-2.0); GRANULOCYTE % 83.1 % (42.2-75.2); HEMATOCRIT 32.6 % (42-52); MEAN CORPUSCULAR HGB CONC 33.3 G/DL (33.0-37.0); MEAN CORPUSCULAR VOLUME 90.3 FL (80.0-94.0); MEAN PLATELET VOLUME 8.1 FL (7.4-10.4); PLATELET COUNT 428 /CUMM (130-400); RBC DISTRIBUTION WIDTH 13.9 % (11.5-14.5); RED BLOOD CELL CT 3.61 /CUMM (4.70-6.10); WHITE BLOOD CELL COUNT 15.6 /CUMM (4.8-10.8)
--- NOTE | 2016-05-08 08:34 | PN- Diabetes ---
Assessment/Plan Assessment: 45-year-old Obese man with past medical history of poorly controlled diabetes type 2 with HbA1c of 12%, was admitted for diabetic right foot infection with cellulitis of right lower extremity and positive blood culture of gram positive cocci. He underwent more procedures on his right foot on 05/05/2016. Currently he was on Levemir 20 units twice a day. Novolog coverage before meals and Novolog coverage at bedtime. He is going to go to OR again today. He was kept NPO after midnight. Levemir was reduced to 10 units twice a day. He is on D5NS at 50 ml/hour and Novolog coverage every 4 hours. His FSGs were 121, 104, 90 and 123. Plan: 1. after he is back from OR, I will stop IVF and stop NISS every 4 hours. 2. When he is ready to eat, I will restart patient on Levemir 16 units twice a day, Novolog coverage before meals and Novolog coverage at bedtime. Detail see the inpatient DM orders. 3. monitor FSGs 4. replete K; monitor electrolytes and mg level. will follow. Inpatient Diabetes Orders Before Each Meal: Bolus Insulin: Novolog < 80 mg/dl: no coverage 80-100 mg/dl: 7 units 101-120 mg/dl: 7 units 121-150 mg/dl: 7 units 151-200 mg/dl: 9 units 201-250 mg/dl: 11 units 251-300 mg/dl: 13 units 301-350 mg/dl: 15 units 351-400 mg/dl: 17 units > 400 mg/dl: 18 units Bedtime: Bolus Insulin: Novolog < 80 mg/dl: no coverage 80-100 mg/dl: no coverage 101-120 mg/dl: no coverage 121-150 mg/dl: no coverage 151-200 mg/dl: no coverage 201-250 mg/dl: 2 units 251-300 mg/dl: 3 units 301-350 mg/dl: 4 units 351-400 mg/dl: 5 units > 400 mg/dl: 6 units Subjective Subjective: He is waiting for going to OR for procedure. Objective Last 24 Hrs of Vital Signs/I&O Vital Signs Date Time Temp Pulse Resp B/P Pulse O2 O2 Flow FiO2 Ox Delivery Rate 05/08 0739 98.3 95 20 134/96 96 Room Air 05/07 2329 98.2 90 20 140/80 95 Room Air 05/07 1447 98.1 97 20 144/88 95 Room Air 05/07 0954 100 145/80 05/07 0953 100 145/80 Intake & Output 05/08 1600 05/08 0800 05/08 0000 Intake Total 350 100 Output Total Balance 350 100 Intake, IV 350 Intake, Oral 100 Number 1 Bowel Movements Findings Pertinent Lab/Ramin Results: Laboratory Tests 05/08 0736 Chemistry Sodium (137 - 145 mmol/L) 137 Potassium (3.5 - 5.1 mmol/L) 3.1 L Chloride (98 - 107 mmol/L) 100 Carbon Dioxide (22 - 30 mmol/L) 28 Anion Gap (5 - 16) 9 BUN (9 - 20 mg/dL) 5 L Creatinine (0.7 - 1.2 mg/dL) 0.5 L Estimated GFR (>60 ml/min) > 60 BUN/Creatinine Ratio (7 - 25 %) 10.0 Hematology CBC w Diff Pending WBC Pending RBC Pending Hgb Pending Hct Pending MCV Pending MCH Pending RDW Pending Plt Count Pending MPV Pending PUBS MCHC Pending
--- NOTE | 2016-05-08 09:53 | ECHOCARDIOGRAM REPORT ---
ALF JUAREZ Age: 45 : 1970 Gender: M Exam Date: 05/07/2016 11:37 Exam Location: [address] [place] [address] Ht (in): 75 Wt (lb): 320 BSA: 2.83 BP: 160 / 100 Ordering Physician: LEONID JIMENEZ MD Referring Physician: LEONID JIMENEZ MD Technologist: Javon Parry [facility] Room Number: 235 Indications: INFECTIVE ENDOCARDITIS Rhythm: Sinus Technical Quality: Poor, Technically difficult study FINDINGS Left Ventricle Normal size left ventricle. No obvious regional wall motion abnormalities. Normal left ventricular ejection fraction estimated at 55-60%. Right Ventricle Right ventricle not well visualized, grossly normal. Right Atrium Right atrium not well visualized, grossly normal. Left Atrium Left atrial size at the upper limits of normal. Mitral Valve Mitral valve thickened. Systolic flow reversal in the pulmonary veins. Trace mitral regurgitation. Aortic Valve Trileaflet aortic valve. Focal thickening of the aortic valve cusps. No aortic valve stenosis or regurgitation. Tricuspid Valve Tricuspid valve not well visualized, grossly normal. Trace to mild tricuspid regurgitationright ventricular systolic pressure estimated to be elevated at 46 mmHg. Pulmonic Valve Pulmonic valve not well visualized. Pericardium Minimal pericardial effusion (normal variant). Great Vessels Aortic root and proximal ascending aorta not well visualized, grossly normal. CONCLUSIONS 1. This was a technically difficult and limited examination due to the patient's body habitus. 2. Minimal aortic sclerosis is present with no valvular stenosis or insufficiency. Minimal enlargement of the ascending aorta is present. 3. Mild thickening of the mitral leaflets is present with minimal mitral insufficiency. 4. A physiologic pericardial effusion is present. 5. The left ventricular chamber size and systolic function appear normal. There are no obvious resting wall motion abnormalities. 6. The right heart structures were not optimally visualized. Minimal to mild tricuspid insufficiency is present with mild pulmonary hypertension and an estimated RV systolic pressure of 46 mmHg. 7. There are no obvious vegetative lesions present. However, this was a technically limited study and, if clinically indicated, a RONNY would better exclude valvular vegetative lesions. Landon Coley M.D. (Electronically Signed) Final Date: 08 May 2016 09:52 MEASUREMENTS (Male / Female) Normal Values 2D ECHO LV Diastolic Diameter PLAX 5.2 cm 4.2 - 5.9 / 3.9 - 5.3 cm LV Systolic Diameter PLAX 3.2 cm 2.1 - 4.0 cm LV Fractional Shortening PLAX 38.5 % 25 - 46 % LV Ejection Fraction 2D Teich 68.4 % IVS Diastolic Thickness 1.2 cm LVPW Diastolic Thickness 1.3 cm LV Relative Wall Thickness 0.5 RV Internal Dim ED PLAX 4.0 cm 1.9 - 3.8 cm LVOT Diameter 2.3 cm Aortic Root Diameter 3.4 cm LA Systolic Diameter LX 4.0 cm 3.0 - 4.0 / 2.7 - 3.8 cm Ascending Aorta Diameter 3.9 cm DOPPLER AV Peak Velocity 154.0 cm/s AV Peak Gradient 9.5 mmHg AV Mean Velocity 113.0 cm/s AV Mean Gradient 6.0 mmHg AV Velocity Time Integral 33.0 cm LVOT Peak Velocity 95.5 cm/s LVOT Peak Gradient 3.6 mmHg LVOT Mean Velocity 69.4 cm/s LVOT Mean Gradient 2.0 mmHg LVOT Velocity Time Integral 23.9 cm LVOT Stroke Volume 99.3 cm AV Area Cont Eq vti 3.0 cm AV Area Cont Eq pk 2.6 cm MV Peak Velocity 121.0 cm/s MV Peak Gradient 5.9 mmHg MV Mean Velocity 82.4 cm/s MV Mean Gradient 3.0 mmHg Mitral E Point Velocity 94.3 cm/s Mitral A Point Velocity 65.6 cm/s Mitral E to A Ratio 1.4 MV PHT Velocity 124.0 cm/s MV Deceleration Harney 844.0 cm/s MV Pressure Half Time 44.1 ms MV Area PHT 5.0 cm MV Deceleration Time 211.0 ms TR Peak Velocity 320.0 cm/s TR Peak Gradient 41.0 mmHg Right Atrial Pressure 5.0 mmHg Pulmonary Artery Systolic Pressu 46.0 mmHg Right Ventricular Systolic Press 46.0 mmHg PV Peak Velocity 109.0 cm/s PV Peak Gradient 4.8 mmHg PV Mean Velocity 72.1 cm/s PV Mean Gradient 2.0 mmHg PV Velocity Time Integral 16.5 cm LV E' Lateral Velocity 15.9 cm/s Mitral E to LV E' Lateral Ratio 5.9 LV E' Septal Velocity 13.2 cm/s Mitral E to LV E' Septal Ratio 7.1
--- NOTE | 2016-05-08 12:24 | Operative Report ---
Operative/Inv Procedure Report Surgery Date: 05/08/16 Name of Procedure: 1 open incision and drainage deep to the fashion with exposure of the extensor and flexor tendon and tendon sheath multiple sites right foot and ankle 2 revisional first ray resection right foot 3 intraoperative administration of negative pressure wound therapy 4 excisional debridement Pre-Operative Diagnosis: 1 open necrotic wound right foot and ankle 2 osteomyelitis right foot 3 diabetic peripheral neuropathy Post-Operative Diagnosis: The same Estimated Blood Loss: less than 50ml Surgeon/Pole Classifier: TERRY MALAGON DPM Anesthesia: moderate sedation, block Operative/Procedure Note Note: After obtaining informed consent the patient was brought to the operating room and placed on the operating table in the supine position. The patient isn't securely fastened to the operating table utilizing safety belt. After administration of IV sedation, 10 mL of 0.5% Marcaine plain was infiltrated about the patient's right ankle. The right foot and ankle and leg were scrubbed prepped and draped in usual aseptic manner. To the right foot and ankle were large full-thickness chronic was identified. A 15 blade visualized sharply revised skin margins. Dissection was then carried down deep to the deep fascia with exposure of the flexor tendon and tendon sheath multiple sites, both proximally and distally. All necrotic nonviable infected tissue sharply evacuated from the wound bed. Nipple was then irrigated 3 L of normal sterile saline fissure 50,000 units of bacitracin. Following this foot was redraped and surgeon's top was changed clean gloves. Any bleeding vessels identified were cauterized or ligated as encountered. Negative pressure wound therapy was then applied followed by Anita. Patient noted tolerate both procedure and anesthesia well and the patient was transported from the operating room to recovery by sent stable.
[2016-05-08 13:46] VITALS: BP 170/84
[2016-05-08 14:10] VITALS: BP 145/72
--- NOTE | 2016-05-08 14:42 | PN- Infect Dx ---
Subjective Subjective: Afebrile. He notes minimal discomfort in the right foot. Objective Last 24 Hrs of Vital Signs/I&O Vital Signs Date Time Temp Pulse Resp B/P Pulse O2 O2 Flow FiO2 Ox Delivery Rate 05/08 1410 98.8 95 20 145/72 91 / 1346 98.4 96 18 170/84 05/08 1043 Room Air 05/08 0839 99.0 90 20 170/80 05/08 0739 98.3 95 20 134/96 96 Room Air 05/07 2329 98.2 90 20 140/80 95 Room Air 05/07 1447 98.1 97 20 144/88 95 Room Air Intake & Output 05/08 1600 05/08 0800 05/08 0000 Intake Total 350 100 Output Total 250 Balance 100 100 Intake, IV 350 Intake, Oral 0 100 Number 2 Bowel Movements Output, Stool 150 Output, Urine 100 Physical Exam Other Physical Findings: He appears comfortable in no acute distress Extremities right foot dressing intact, with wound VAC in place; PICC in the right upper extremity with no inflammation at the site Results Last 24 Hours of Lab Results: Laboratory Tests 05/08 0736 Chemistry Sodium (137 - 145 mmol/L) 137 Potassium (3.5 - 5.1 mmol/L) 3.1 L Chloride (98 - 107 mmol/L) 100 Carbon Dioxide (22 - 30 mmol/L) 28 Anion Gap (5 - 16) 9 BUN (9 - 20 mg/dL) 5 L Creatinine (0.7 - 1.2 mg/dL) 0.5 L Estimated GFR (>60 ml/min) > 60 BUN/Creatinine Ratio (7 - 25 %) 10.0 Hematology CBC w Diff MAN DIFF ORDERED WBC (4.8 - 10.8 /CUMM) 15.6 H RBC (4.70 - 6.10 /CUMM) 3.61 L Hgb (14.0 - 18.0 G/DL) 10.9 L Hct (42 - 52 %) 32.6 L MCV (80.0 - 94.0 FL) 90.3 MCH (27.0 - 31.0 PG) 30.0 RDW (11.5 - 14.5 %) 13.9 Plt Count (130 - 400 /CUMM) 428 H MPV (7.4 - 10.4 FL) 8.1 Gran % (42.2 - 75.2 %) 83.1 H Lymphocytes % (20.5 - 51.1 %) 8.6 L Monocytes % (1.7 - 9.3 %) 7.0 Eosinophils % (0 - 5 %) 1.0 Basophils % (0.0 - 2.0 %) 0.3 Absolute Granulocytes (1.4 - 6.5 /CUMM) 12.9 H Segmented Neutrophils (42.2 - 75.2 %) 75 Band Neutrophils (0.0 - 5.0 %) 7 H Absolute Lymphocytes (1.2 - 3.4 /CUMM) 1.3 Lymphocytes (20.5 - 51.1 %) 8 L Monocytes (1.7 - 9.3 %) 7 Absolute Monocytes (0.10 - 0.60 /CUMM) 1.1 H Eosinophils (0 - 5.0 %) 1 Absolute Eosinophils (0.0 - 0.7 /CUMM) 0.2 Basophils (0.0 - 2.0 %) 1 Absolute Basophils (0.0 - 0.2 /CUMM) 0.1 Metamyelocytes (0.0 - 1.0 %) 1 Platelet Estimate (ADEQUATE) ADEQUATE Hypochromic-Microcytic 1+ Anisocytosis 1+ PUBS MCHC (33.0 - 37.0 G/DL) 33.3 Last 24 Hours of Ramin Results: Blood cultures May 06 negative Urine culture May 06 negative Recent Imaging Studies: Echocardiogram May 07 no obvious vegetations Assessment/Plan Impression: Stable status post further debridement in the OR today for polymicrobial osteomyelitis (Group B strep, 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 He remains afebrile with white blood cell count decreased today, suggesting a response to the recent drainage of his retrocalcaneal abscess and debridement 3 days ago. Suggestion: 1. Would repeat ESR in the a.m. 2. Continue Unasyn
[2016-05-08 22:53] VITALS: BP 146/86
[2016-05-09 07:14] VITALS: BP 142/68
[2016-05-09 08:46] LABS: ABSOLUTE BASOPHIL COUNT 0.1 /CUMM (0.0-0.2); ABSOLUTE EOSINOPHIL COUNT 0.2 /CUMM (0.0-0.7); ABSOLUTE GRANULOCYTE CT 12.6 /CUMM (1.4-6.5); ABSOLUTE LYMPH COUNT 1.7 /CUMM (1.2-3.4); ABSOLUTE MONOCYTE COUNT 1.1 /CUMM (0.10-0.60); BASOPHIL % 0.3 % (0.0-2.0); EOSINOPHIL % 1.1 % (0-5); GRANULOCYTE % 80.9 % (42.2-75.2); HEMATOCRIT 31.5 % (42-52); MEAN CORPUSCULAR HGB 30.4 PG (27.0-31.0); MEAN CORPUSCULAR HGB CONC 33.6 G/DL (33.0-37.0); MEAN CORPUSCULAR VOLUME 90.3 FL (80.0-94.0); MEAN PLATELET VOLUME 7.9 FL (7.4-10.4); PLATELET COUNT 435 /CUMM (130-400); RBC DISTRIBUTION WIDTH 13.4 % (11.5-14.5); RED BLOOD CELL CT 3.49 /CUMM (4.70-6.10); WHITE BLOOD CELL COUNT 15.5 /CUMM (4.8-10.8)
--- NOTE | 2016-05-09 10:02 | PN- Podiatry ---
Subjective Subjective: Patient seen at bedside with no acute overnight complaints. Patient denies nausea vomiting fever chills. Patient admits to some right leg pain yesterday, which was relieved with by mouth analgesics. Objective Vital Signs and I&Os Vital Signs Date Time Temp Pulse Resp B/P Pulse O2 O2 Flow FiO2 Ox Delivery Rate 05/09 713 98.7 90 20 142/68 95 Room Air 05/08 2253 99.2 99 20 146/86 93 Room Air 05/08 1410 98.8 95 20 145/72 91 05/08 1346 98.4 96 18 170/84 05/08 1043 Room Air Intake & Output 05/09 1600 05/09 0800 05/09 0000 05/08 1600 05/08 0800 05/08 0000 Intake Total 400 580 300 350 100 Output Total 1050 1600 250 Balance 400 -470 -1300 100 100 Intake, IV 160 100 350 Intake, Oral 240 480 300 0 100 Number 1 1 2 Bowel Movements Output, Stool 100 150 Output, Urine 1050 1500 100 Physical Exam: Dressing right lower extremity clean dry and intact. Wound VAC in place with proximate 120 mL of serosanguineous drainage noted to the canister. Assessment/Plan Assessment/Plan Cellulitis and osteomyelitis right foot. Continue IV antibiotics. Wound VAC change on Wednesday. Anticipate discharge early next week. Core Measures/Miscellaneous Venous Thromboembolism VTE Risk Factors: Age > 40, Obesity, Surgery VTE Contraindications: No Contraindications VTE Diagnosis: No Beta Rome Is Beta Rome a Home Med? No Antibiotics Is Patient on Antibiotics? Yes If Yes: infection Attending MD Review Statement Attending Statement Attending MD Statement: examined this patient
--- NOTE | 2016-05-09 12:20 | PN- Diabetes ---
Assessment/Plan Assessment: 45-year-old Obese man with past medical history of poorly controlled diabetes type 2 with HbA1c of 12%, was admitted for diabetic right foot infection with cellulitis of right lower extremity and positive blood culture of gram positive cocci. He underwent multiple surgical procedures. Currently he was on Levemir 16 units twice a day. Novolog coverage before meals and Novolog coverage at bedtime. His FSGs were 169, 192, 158 and 225. His WBC has been improving. Plan: 1. increase Levemir to 20 units twice a day; 2. continue the current Novolog coverage before meals and Novolog coverage at bedtime. 3. monitor his FSGs. 4. replete K and Mg; continue monitor electrolytes. will follow. Subjective Subjective: He feels better. Objective Last 24 Hrs of Vital Signs/I&O Vital Signs Date Time Temp Pulse Resp B/P Pulse O2 O2 Flow FiO2 Ox Delivery Rate 05/09 1006 88 158/92 05/09 1006 88 158/92 05/09 0714 98.7 90 20 142/68 95 Room Air 05/08 2253 99.2 99 20 146/86 93 Room Air 05/08 1410 98.8 95 20 145/72 91 05/08 1346 98.4 96 18 170/84 Intake & Output 05/09 1600 05/09 0800 05/09 0000 Intake Total 400 580 Output Total 1050 Balance 400 -470 Intake, IV 160 100 Intake, Oral 240 480 Number 1 Bowel Movements Output, Urine 1050 Findings Pertinent Lab/Ramin Results: Laboratory Tests 05/09 0620 Chemistry Sodium (137 - 145 mmol/L) 137 Potassium (3.5 - 5.1 mmol/L) 3.4 L Chloride (98 - 107 mmol/L) 98 Carbon Dioxide (22 - 30 mmol/L) 30 Anion Gap (5 - 16) 9 BUN (9 - 20 mg/dL) 5 L Creatinine (0.7 - 1.2 mg/dL) 0.4 L Estimated GFR (>60 ml/min) > 60 BUN/Creatinine Ratio (7 - 25 %) 12.5 Magnesium (1.6 - 2.3 mg/dL) 1.5 L Hematology CBC w Diff NO MAN DIFF REQ WBC (4.8 - 10.8 /CUMM) 15.5 H RBC (4.70 - 6.10 /CUMM) 3.49 L Hgb (14.0 - 18.0 G/DL) 10.6 L Hct (42 - 52 %) 31.5 L MCV (80.0 - 94.0 FL) 90.3 MCH (27.0 - 31.0 PG) 30.4 RDW (11.5 - 14.5 %) 13.4 Plt Count (130 - 400 /CUMM) 435 H MPV (7.4 - 10.4 FL) 7.9 Gran % (42.2 - 75.2 %) 80.9 H Lymphocytes % (20.5 - 51.1 %) 10.7 L Monocytes % (1.7 - 9.3 %) 7.0 Eosinophils % (0 - 5 %) 1.1 Basophils % (0.0 - 2.0 %) 0.3 Absolute Granulocytes (1.4 - 6.5 /CUMM) 12.6 H Absolute Lymphocytes (1.2 - 3.4 /CUMM) 1.7 Absolute Monocytes (0.10 - 0.60 /CUMM) 1.1 H Absolute Eosinophils (0.0 - 0.7 /CUMM) 0.2 Absolute Basophils (0.0 - 0.2 /CUMM) 0.1 PUBS MCHC (33.0 - 37.0 G/DL) 33.6 ESR Westergren (0 - 10 MM) Pending
[2016-05-09 14:49] VITALS: BP 130/70
--- NOTE | 2016-05-09 18:44 | PN- Medicine Consult ---
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 Dowd, history of multi loculated abscess in posterior neck status post I&D in 2016, history of C. difficile and obstructive sleep apnea not using CPAP anymore. 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 He was admitted for debridement and IV antibiotics. Plan: Sepsis secondary to chronic nonhealing ulcer of right foot now with cellulitis and gas gangrene - Doing well post-op - Continue Unasyn - Underwent open incision and drainage deep to the D fashion with exposure of the Achilles tendon tendon sheath multiple sites both proximally and distally right leg, revisional partial first ray resection right foot, and excisional debridement on May 05. Acute kidney injury It has resolved. Creatinine down to 0.5 from a maximum of 1.9. Labs from this morning are pending. History of poorly controlled diabetes mellitus - Endocrine following, Levemir increased History of hypertension Patient has history of hypertension he is on amlodipine 5 mg daily. Blood pressure better controlled 134/96. Continue Lisinopril to 40 mg daily. Hypokalemia and hypomagnesemia repleted Subjective Subjective: No complaints, doing well Review of Systems Constitutional: Reports: see HPI. EENTM: Reports: no symptoms. Cardiovascular: Reports: no symptoms. Respiratory: Reports: no symptoms. Gastrointestinal: Reports: no symptoms. Genitourinary: Reports: no symptoms. Musculoskeletal: Reports: see HPI. Skin: Reports: no symptoms. Neurological/Psychological: Reports: no symptoms. Hematologic/Endocrine: Reports: no symptoms. Immunologic/Allergic: Reports: no symptoms. Objective Last 24 Hrs of Vital Signs/I&O Vital Signs Date Time Temp Pulse Resp B/P Pulse O2 O2 Flow FiO2 Ox Delivery Rate 05/09 1449 98.2 90 20 130/70 96 03/ 1006 88 158/92 / 1006 88 158/92 / 0714 98.7 90 20 142/68 95 Room Air / 2253 99.2 99 20 146/86 93 Room Air Intake & Output 05/09 1600 / 0800 05/09 0000 Intake Total 1050 400 580 Output Total 1400 1050 Balance -350 400 -470 Intake, IV 250 160 100 Intake, Oral 800 240 480 Number 1 Bowel Movements Output, Stool 300 Output, Urine 1100 1050 Physical Exam General Appearance: no apparent distress Head: normal appearance Ears, Nose, Throat: normal ENT inspection Neck: supple Cardiovascular: regular rate/rhythm Respiratory: normal breath sounds Abdomen: soft Extremities: Surgical site clean and dry Current Medications: Current Medications Sig/Angela Start time Last Medication Dose Route Stop Time Status Admin Acetaminophen 650 MG Q6-PRN PRN 04/29 2014 AC PO Amlodipine Besylate 5 MG DAILY 04/30 1000 AC 05/09 PO 1006 Ampicillin Sodium/ 3,000 MG Q6H 05/05 2000 AC 05/09 Sulbactam Sodium IV 1414 Sodium Chloride 100 ML Atorvastatin Calcium 20 MG DAILY 04/30 1000 AC 05/09 PO 1006 Calcium Carbonate 500 MG ONCE ONE 05/09 1500 DC 05/09 PO 05/09 1501 1541 Heparin Sodium 5,000 UNIT Q8 05/08 1400 AC 05/09 (Porcine) SC 1414 Insulin Aspart 0 TIDAC/HS 05/08 1700 AC 05/09 SC 1647 Insulin Detemir 20 UNITS BID 05/09 2200 SC Insulin Detemir 16 UNITS BID 05/08 2200 DC 05/09 SC 1006 Lisinopril 40 MG DAILY 05/07 1000 AC 05/09 PO 1006 Magnesium Sulfate 1 GM ONCE ONE 05/09 1515 AC 05/09 Dextrose/Water 100 ML IV 05/09 1914 1625 Morphine Sulfate 4 MG DAILY 05/07 1134 AC 05/07 IV 1450 Oxycodone HCl 5 MG Q4-PRN PRN 04/29 2030 AC 05/08 PO 1717 Polyethylene Glycol 17 GM DAILY 04/30 1145 AC 05/06 PO 1007 Potassium Chloride 40 MEQ ONCE ONE 05/09 1515 DC 05/09 PO 05/09 1516 1541 Results Last 24 Hrs Lab/Ramin Results: Laboratory Tests 05/09/16 0620: Anion Gap 9, Estimated GFR > 60, BUN/Creatinine Ratio 12.5, Magnesium 1.5 L, CBC w Diff NO MAN DIFF REQ, RBC 3.49 L, MCV 90.3, MCH 30.4, RDW 13.4, MPV 7.9, Gran % 80.9 H, Lymphocytes % 10.7 L, Monocytes % 7.0, Eosinophils % 1.1, Basophils % 0.3, Absolute Granulocytes 12.6 H, Absolute Lymphocytes 1.7, Absolute Monocytes 1.1 H, Absolute Eosinophils 0.2, Absolute Basophils 0.1, PUBS MCHC 33.6, ESR Westergren > 130 H
[2016-05-09 22:14] VITALS: BP 160/94
[2016-05-09 23:30] VITALS: BP 158/80
[2016-05-10 07:16] VITALS: BP 154/94
--- NOTE | 2016-05-10 11:22 | PN- Diabetes ---
Assessment/Plan Assessment: 45-year-old Obese man with past medical history of poorly controlled diabetes type 2 with HbA1c of 12%, was admitted for diabetic right foot infection with cellulitis of right lower extremity and positive blood culture of gram positive cocci. He underwent multiple surgical procedures. Currently he is on Levemir 20 units twice a day. Novolog coverage before meals and Novolog coverage at bedtime. His FSGs were 182, 242 and 158. as per patient, he will go to OR again. Most likely he will be NPO again after mightnight tonight. Plan: 1. increase Levemir to 22 units twice a day; 2. continue the current Novolog coverage before meals and Novolog coverage at bedtime. 3. If he will be kept NPO after midnight for procedure tomorrow, I will recommend decreasing Levemir to 11 units twice a day and covering him with Novolog coverage every 4 hours while he is NPO ( FSG < 150, no coverage; 150-200 , 2 units; 201-250, 4 units; 251-300, 6 units; 301-350, 8 units; 351-400, 10 units; > 400, 12 units) Please call me if there is any question. Subjective Subjective: He feels well. Objective Last 24 Hrs of Vital Signs/I&O Vital Signs Date Time Temp Pulse Resp B/P Pulse O2 O2 Flow FiO2 Ox Delivery Rate 05/10 1010 154/94 03/05 1010 154/94 03/ 0716 98.4 90 20 154/94 94 Room Air 03/04 2330 158/80 03/ 2214 99.0 95 20 160/94 95 Room Air 03/04 1449 98.2 90 20 130/70 96 Intake & Output 03/ 1600 03/05 0800 03/05 0000 Intake Total 1000 Output Total 121 269 0458 Balance -800 -800 -242 Intake, IV 300 Intake, Oral 700 Output, 40 Drainage Output, Stool 2 Output, Urine [phone]
--- NOTE | 2016-05-10 13:27 | PN- Podiatry ---
Subjective Subjective: Patient seen at bedside without any new acute complaints overnight. Patient denies nausea vomiting fever chills. Patient states that his right foot pain is well-controlled with by mouth analgesics. Objective Vital Signs and I&Os Vital Signs Date Time Temp Pulse Resp B/P Pulse O2 O2 Flow FiO2 Ox Delivery Rate 03 1010 154/94 03/ 1010 154/94 03/ 0716 98.4 90 20 154/94 94 Room Air 03/ 2330 158/80 03/ 2214 99.0 95 20 160/94 95 Room Air 03/04 1449 98.2 90 20 130/70 96 Intake & Output 05/10 1600 03/ 0800 03/ 0000 / 1600 / 0800 / 0000 Intake Total 130 1000 1050 400 580 Output Total 305 549 9039 1400 1050 Balance -800 -670 -242 -350 400 -470 Intake, IV 300 250 160 100 Intake, Oral 0 700 800 240 480 Intake, 130 TPN/PPN Number 0 1 Bowel Movements Output, 40 Drainage Output, Stool 2 300 Output, Urine [phone] 1100 1050 Physical Exam: Dressing right foot clean dry and intact. Wound VAC in place right foot and ankle with 260 mL of serosanguineous drainage identified. Assessment/Plan Assessment/Plan Right foot cellulitis and osteomyelitis. Continue IV antibiotics. Wound VAC dressing change at bedside tomorrow. Discharge pending placement. Core Measures/Miscellaneous Venous Thromboembolism VTE Risk Factors: Age > 40, Obesity, Surgery VTE Contraindications: No Contraindications VTE Diagnosis: No Beta Rome Is Beta Rome a Home Med? No Antibiotics Is Patient on Antibiotics? Yes If Yes: infection Attending MD Review Statement Attending Statement Attending MD Statement: examined this patient
--- NOTE | 2016-05-10 14:37 | PN- Medicine Consult ---
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 Dowd, history of multi loculated abscess in posterior neck status post I&D in 2016, history of C. difficile and obstructive sleep apnea not using CPAP anymore. 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 He was admitted for debridement and IV antibiotics. Plan: Sepsis secondary to chronic nonhealing ulcer of right foot now with cellulitis and gas gangrene - Doing well post-op - Continue Unasyn - Underwent open incision and drainage deep to the D fashion with exposure of the Achilles tendon tendon sheath multiple sites both proximally and distally right leg, revisional partial first ray resection right foot, and excisional debridement on May 05. Acute kidney injury It has resolved. Creatinine down to 0.5 from a maximum of 1.9. Labs from this morning are pending. History of poorly controlled diabetes mellitus - Endocrine following, Levemir increased History of hypertension Patient has history of hypertension he is on amlodipine 5 mg daily. Blood pressure better controlled 134/96. Continue Lisinopril to 40 mg daily. Hypokalemia and hypomagnesemia repleted Subjective Subjective: Patient feels well. His pain is controlled. He has no active complaints. Review of Systems Constitutional: Reports: no symptoms. Objective Last 24 Hrs of Vital Signs/I&O Vital Signs Date Time Temp Pulse Resp B/P Pulse O2 O2 Flow FiO2 Ox Delivery Rate 05/10 1010 154/94 03/ 1010 154/94 / 0716 98.4 90 20 154/94 94 Room Air 03/04 2330 158/80 03/04 2214 99.0 95 20 160/94 95 Room Air 03/04 1449 98.2 90 20 130/70 96 Intake & Output / 1600 03/05 0800 03/05 0000 Intake Total 130 1000 Output Total 540 607 3752 Balance -800 -670 -242 Intake, IV 300 Intake, Oral 0 700 Intake, 130 TPN/PPN Number 0 Bowel Movements Output, 40 Drainage Output, Stool 2 Output, Urine 818 279 9783 Physical Exam General Appearance: well developed/nourished, no apparent distress Head: normal appearance Ears, Nose, Throat: normal ENT inspection Neck: normal inspection Cardiovascular: regular rate/rhythm Respiratory: normal breath sounds Abdomen: soft Extremities: Right leg clean and dry, vac in place Current Medications: Current Medications Sig/Angela Start time Last Medication Dose Route Stop Time Status Admin Acetaminophen 650 MG Q6-PRN PRN 04/29 2014 AC PO Amlodipine Besylate 5 MG DAILY 04/30 1000 AC 05/10 PO 1010 Ampicillin Sodium/ 3,000 MG Q6H 05/05 2000 AC 05/10 Sulbactam Sodium IV 1427 Sodium Chloride 100 ML Atorvastatin Calcium 20 MG DAILY 04/30 1000 AC 05/10 PO 1010 Calcium Carbonate 500 MG ONCE ONE 05/09 1500 DC 05/09 PO 05/09 1501 1541 Heparin Sodium 5,000 UNIT Q8 05/08 1400 AC 05/10 (Porcine) SC 0648 Insulin Aspart 0 TIDAC/HS 05/08 1700 AC 05/10 SC 1155 Insulin Detemir 22 UNITS BID 05/10 2200 AC SC Insulin Detemir 20 UNITS BID 05/09 2200 DC 05/10 SC 1011 Lisinopril 40 MG DAILY 05/07 1000 AC 05/10 PO 1010 Magnesium Sulfate 1 GM ONCE ONE 05/09 1515 DC 05/09 Dextrose/Water 100 ML IV 05/09 1914 1625 Morphine Sulfate 4 MG DAILY 05/07 1134 AC 05/07 IV 1450 Oxycodone HCl 5 MG Q4-PRN PRN 04/29 2030 AC 05/10 PO 1010 Polyethylene Glycol 17 GM DAILY 04/30 1145 AC 05/06 PO 1007 Potassium Chloride 40 MEQ ONCE ONE 05/09 1515 DC 05/09 PO 05/09 1516 1541 Results Last 24 Hrs Lab/Ramin Results: None drawn
[2016-05-10 14:49] VITALS: BP 145/80
[2016-05-10 22:21] VITALS: BP 152/84
--- NOTE | 2016-05-11 07:08 | PN- Medicine Consult ---
BARBARALEONID 05/11/16 0708: Assessment/Plan Assessment/Plan Assessment: This is a 45-year-old Obese man with past medical history of poorly controlled diabetes, hypertension, chronic non healing ulcer of plantar aspect of his right foot status post multiple debridements in past by Dr. Dowd, history of multi loculated abscess in posterior neck status post I&D in 2016, history of C. difficile and obstructive sleep apnea not using CPAP anymore. 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 He was admitted for debridement and IV antibiotics. Plan: Sepsis secondary to chronic nonhealing ulcer of right foot now with cellulitis and gas gangrene - Doing well post-op - Continue Unasyn (Day 08 today - 05/03/16) - Underwent open incision and drainage deep to the D fashion with exposure of the Achilles tendon tendon sheath multiple sites both proximally and distally right leg, revisional partial first ray resection right foot, and excisional debridement on May 05. - Plan to change wound vac dressing at bedside today. Acute kidney injury It has resolved. Creatinine down to 0.5 from a maximum of 1.9. Labs from this morning are pending. History of poorly controlled diabetes mellitus - Endocrine following, Levemir increased to 24 units BID. FSG's 184,184,202,264, 152. History of hypertension Patient has history of hypertension he is on amlodipine 5 mg daily and Lisinopril to 40 mg daily. Blood pressure ranging in 140-150's. 2/2 pain? Would consider increasing Amlodipine to 10mg daily. #Leukocytosis - Resolving. Labs from this AM are pending. Echo did not show any evidence of vegetations, but was a difficult study. Plan of care to be discussed with Dr. Ann Subjective Subjective: Patient seen and examined at bedside. States that he has no complaints, and that his pain is well controlled on PO meds. Remains afebrile. Review of Systems Constitutional: Denies: chills, fever, malaise. EENTM: Denies: visual changes. Cardiovascular: Denies: chest pain, palpitations. Respiratory: Denies: cough, short of breath, sputum production. Gastrointestinal: Denies: abdominal pain, constipation, diarrhea, nausea, vomiting. Genitourinary: Reports: no symptoms. Musculoskeletal: Reports: no symptoms. Neurological/Psychological: Denies: headache, numbness, tingling, tremors. Objective Last 24 Hrs of Vital Signs/I&O Vital Signs Date Time Temp Pulse Resp B/P Pulse O2 O2 Flow FiO2 Ox Delivery Rate 05/11 0709 98.4 84 20 144/92 94 Room Air 05/10 2221 98.4 88 20 152/84 93 Room Air 05/10 1449 98.2 91 20 145/80 99 05/10 1010 154/94 03 1010 154/94 Intake & Output 05/11 0800 05/11 0000 05/10 1600 Intake Total 805 695 7490 Output Total 610 197 5278 Balance -290 -290 -1600 Intake, IV 150 150 400 Intake, Oral 360 360 600 Number 0 Bowel Movements Output, Urine 107 214 6047 Physical Exam General Appearance: well developed/nourished, no apparent distress, alert, awake , comfortable Ears, Nose, Throat: normal pharynx Neck: normal inspection, supple Cardiovascular: regular rate/rhythm Respiratory: normal breath sounds, chest non-tender, no respiratory distress, quiet respiration, lungs clear Peripheral Pulses: 2+ tibialis posterior (R), 2+ tibialis posterior (L), 2+ dorsalis pedis (R), 2+ dorsalis pedis (L) Abdomen: normal bowel sounds, soft, non-tender Extremities: has a wound dressintg to his R foot witha wound vac in place. trace b/l edema Neurologic/Psychiatric: no motor/sensory deficits, awake, alert, oriented x 3 Current Medications: Current Medications Sig/Angela Start time Last Medication Dose Route Stop Time Status Admin Acetaminophen 650 MG Q6-PRN PRN 04/29 2014 AC PO Amlodipine Besylate 5 MG DAILY 04/30 1000 AC 05/10 PO 1010 Ampicillin Sodium/ 3,000 MG Q6H 05/05 2000 AC 05/11 Sulbactam Sodium IV 0201 Sodium Chloride 100 ML Atorvastatin Calcium 20 MG DAILY 04/30 1000 AC 05/10 PO 1010 Heparin Sodium 5,000 UNIT Q8 05/08 1400 AC 05/11 (Porcine) SC 0518 Insulin Aspart 0 TIDAC/HS 05/08 1700 AC 05/10 SC 2103 Insulin Detemir 22 UNITS BID 05/10 2200 AC 05/10 SC 2103 Insulin Detemir 20 UNITS BID 05/09 2200 DC 05/10 SC 1011 Lisinopril 40 MG DAILY 05/07 1000 AC 05/10 PO 1010 Morphine Sulfate 4 MG DAILY 05/07 1134 AC 05/07 IV 1450 Oxycodone HCl 5 MG Q4-PRN PRN 04/29 2030 AC 05/11 PO 0632 Polyethylene Glycol 17 GM DAILY 04/30 1145 AC 05/06 PO 1007 Results Last 24 Hrs Lab/Ramin Results: Laboratory Tests 05/11/16 0520: Anion Gap 7, Estimated GFR > 60, BUN/Creatinine Ratio 12.0, Magnesium 1.6 Recent Imaging Studies: SERVICE DATE: 05/07/16- EXAM TYPE: CARD - ECHOCARDIOGRAM FINDINGS Left Ventricle Normal size left ventricle. No obvious regional wall motion abnormalities. Normal left ventricular ejection fraction estimated at 55-60%. Right Ventricle Right ventricle not well visualized, grossly normal. Right Atrium Right atrium not well visualized, grossly normal. Left Atrium Left atrial size at the upper limits of normal. Mitral Valve Mitral valve thickened. Systolic flow reversal in the pulmonary veins. Trace mitral regurgitation. Aortic Valve Trileaflet aortic valve. Focal thickening of the aortic valve cusps. No aortic valve stenosis or regurgitation. Tricuspid Valve Tricuspid valve not well visualized, grossly normal. Trace to mild tricuspid regurgitationright ventricular systolic pressure estimated to be elevated at 46 mmHg. Pulmonic Valve Pulmonic valve not well visualized. Pericardium Minimal pericardial effusion (normal variant). Great Vessels Aortic root and proximal ascending aorta not well visualized, grossly normal. CONCLUSIONS 1. This was a technically difficult and limited examination due to the patient's body habitus. 2. Minimal aortic sclerosis is present with no valvular stenosis or insufficiency. Minimal enlargement of the ascending aorta is present. 3. Mild thickening of the mitral leaflets is present with minimal mitral insufficiency. 4. A physiologic pericardial effusion is present. 5. The left ventricular chamber size and systolic function appear normal. There are no obvious resting wall motion abnormalities. 6. The right heart structures were not optimally visualized. Minimal to mild tricuspid insufficiency is present with mild pulmonary hypertension and an estimated RV systolic pressure of 46 mmHg. 7. There are no obvious vegetative lesions present. However, this was a technically limited study and, if clinically indicated, a RONNY would better exclude valvular vegetative lesions. Landon Coley M.D. (Electronically Signed) Final Date: 08 May 2016 NEEL PERKINS,MARAH 05/11/16 1125: Attending MD Review Statement Attending Sign Off Attending Cosign Statement: I have: examined this patient, reviewed aval EMR data, discussd w/resident/PA/ REIMBURSEMENT CONSULTANT, discussed mgmt plan w/pt, agreed w/resident/PA/REIMBURSEMENT CONSULTANT. Other Findings: Patient is feeling well and denies any new fever or chills. His pain is well controlled on current medications. He'll be going back to the operation theater for change of dressing today. Exam is unremarkable. Chest is clear and abdomen is obese soft nontender. Labs were reviewed and are currently stable. Plans to continue Unasyn. Patient only has a PICC line. His currently waiting short-term rehabilitation placement. Endocrinology note reviewed and agree with richelle Hoffmann.
[2016-05-11 07:09] VITALS: BP 144/92
--- NOTE | 2016-05-11 08:38 | PN- Diabetes ---
Assessment/Plan Assessment: 45-year-old Obese man with past medical history of poorly controlled diabetes type 2 with HbA1c of 12%, was admitted for diabetic right foot infection with cellulitis of right lower extremity and positive blood culture of gram positive cocci. He underwent multiple surgical procedures. Currently he is on Levemir 22 units twice a day. Novolog coverage before meals and Novolog coverage at bedtime. His FSGs were 184, 202, 264 and 152. Plan: 1. increase Levemir to 24 units twice a day; 2. adjust Novolog coverage before meals--detail see the inpatient DM order; 3. continue the current Novolog coverage at bedtime; 4. monitor FSGs. will follow. Inpatient Diabetes Orders Before Each Meal: Bolus Insulin: Novolog < 80 mg/dl: no coverage 80-100 mg/dl: 9 units 101-120 mg/dl: 9 units 121-150 mg/dl: 9 units 151-200 mg/dl: 11 units 201-250 mg/dl: 13 units 251-300 mg/dl: 15 units 301-350 mg/dl: 17 units 351-400 mg/dl: 19 units > 400 mg/dl: 20 units Subjective Subjective: He feels okay this morning. Objective Last 24 Hrs of Vital Signs/I&O Vital Signs Date Time Temp Pulse Resp B/P Pulse O2 O2 Flow FiO2 Ox Delivery Rate 05/11 0817 144/92 05/11 0709 98.4 84 20 144/92 94 Room Air 05/10 2221 98.4 88 20 152/84 93 Room Air 05/10 1449 98.2 91 20 145/80 99 05/10 1010 154/94 05/10 1010 154/94 Intake & Output 05/11 1600 05/11 0800 05/11 0000 Intake Total 510 510 Output Total 800 800 Balance -290 -290 Intake, IV 150 150 Intake, Oral 360 360 Output, Urine 800 800 Findings Pertinent Lab/Ramin Results: Laboratory Tests 05/11 0520 Chemistry Sodium (137 - 145 mmol/L) 137 Potassium (3.5 - 5.1 mmol/L) 3.5 Chloride (98 - 107 mmol/L) 99 Carbon Dioxide (22 - 30 mmol/L) 31 H Anion Gap (5 - 16) 7 BUN (9 - 20 mg/dL) 6 L Creatinine (0.7 - 1.2 mg/dL) 0.5 L Estimated GFR (>60 ml/min) > 60 BUN/Creatinine Ratio (7 - 25 %) 12.0 Magnesium (1.6 - 2.3 mg/dL) 1.6
[2016-05-11] MEDS ORDERED: LEVEMIR100 UNIT/1 SC (08:55)
[2016-05-11] MEDS ORDERED: NOVOLOG100 UNIT/2 SC (09:01)
--- NOTE | 2016-05-11 09:04 | Patient Discharge Instructions ---
Discharge Instructions General Discharge Information You were seen/treated for: osteomyelitis right foot You had these procedures: 1 open incision and drainage deep to the fashion with exposure of the extensor and flexor tendon and tendon sheath multiple sites right foot and ankle 2 revisional first ray resection right foot 3 intraoperative administration of negative pressure wound therapy 4 excisional debridement Watch for these problems: fever, redness Special Instructions: Please F/U CRP adn ESR weekly. Diet Recommended Diet: Diabetic Activity Activity Self Limited: Yes Activity Limited to: No weight bearing (to RLE) Acute Coronary Syndrome Inclusion Criteria At DC or during hospital stay patient has or had the following: ACS DIAGNOSIS No Discharge Core Measures Meds if any: Prescribed or Continued at Discharge Meds if any: NOT Prescribed or Continued at Discharge Congestive Heart Failure Inclusion Criteria At DC or during hospital stay patient has or had the following: CHF DIAGNOSIS No Discharge Core Measures Meds if any: Prescribed or Continued at Discharge Meds if any: NOT Prescribed or Continued at Discharge Cerebrovascular accident Inclusion Criteria At DC or during hospital stay patient has or had the following: CVA/TIA Diagnosis No Discharge Core Measures Meds if any: Prescribed or Continued at Discharge Meds if any: NOT Prescribed or Continued at Discharge Venous thromboembolism Inclusion Criteria VTE Diagnosis No VTE Type NONE VTE Confirmed by (Test) NONE Discharge Core Measures - Per Current guidelines, there needs to be overlap - treatment for the first 5 days of Warfarin therapy. - If discharged on Warfarin prior to 5 days of - overlap therapy, the patient will need to be - assessed for post discharge needs including - *Post discharge parental anticoagulation - *Warfarin and/or parental anticoagulation education - *Follow up date to check INR post discharge At least 5 days overlap therapy as Inpatient No Meds if any: Prescribed or Continued at Discharge Note: Overlap Therapy is Warfarin and Anticoagulant Meds if any: NOT Prescribed or Continued at Discharge
[2016-05-11] MEDS ORDERED: UNASYN 3 GM VIAL3 GM IV (09:30)
[2016-05-11 13:52] LABS: ABSOLUTE BASOPHIL COUNT 0.1 /CUMM (0.0-0.2); ABSOLUTE EOSINOPHIL COUNT 0.1 /CUMM (0.0-0.7); ABSOLUTE GRANULOCYTE CT 8.8 /CUMM (1.4-6.5); ABSOLUTE LYMPH COUNT 1.9 /CUMM (1.2-3.4); ABSOLUTE MONOCYTE COUNT 0.8 /CUMM (0.10-0.60); BASOPHIL % 0.5 % (0.0-2.0); EOSINOPHIL % 1.3 % (0-5); GRANULOCYTE % 74.5 % (42.2-75.2); HEMATOCRIT 31.1 % (42-52); MEAN CORPUSCULAR HGB 30.6 PG (27.0-31.0); MEAN CORPUSCULAR VOLUME 89.9 FL (80.0-94.0); MEAN PLATELET VOLUME 7.6 FL (7.4-10.4); PLATELET COUNT 437 /CUMM (130-400); RBC DISTRIBUTION WIDTH 13.3 % (11.5-14.5); RED BLOOD CELL CT 3.46 /CUMM (4.70-6.10); WHITE BLOOD CELL COUNT 11.8 /CUMM (4.8-10.8)
[2016-05-11 14:02] VITALS: BP 130/80
--- NOTE | 2016-05-11 14:18 | PN- Infect Dx ---
Subjective Subjective: Afebrile without complaints Objective Last 24 Hrs of Vital Signs/I&O Vital Signs Date Time Temp Pulse Resp B/P Pulse O2 O2 Flow FiO2 Ox Delivery Rate 05/11 1402 98.2 68 20 130/80 98 /06 0817 144/92 05/11 0709 98.4 84 20 144/92 94 Room Air 05/10 2221 98.4 88 20 152/84 93 Room Air 05/10 1449 98.2 91 20 145/80 99 Intake & Output 05/11 1600 05/11 0800 05/11 0000 Intake Total 510 510 Output Total 1000 800 800 Balance -1000 -290 -290 Intake, IV 150 150 Intake, Oral 360 360 Output, Urine 1000 800 800 Physical Exam Other Physical Findings: He appears comfortable in no acute distress Extremities right foot dressing intact, with wound VAC in place; PICC in the right upper extremity with no inflammation at the site Results Last 24 Hours of Lab Results: Laboratory Tests 05/11 05/11 05/11 1220 0911 0709 Chemistry Sodium Cancelled Potassium Cancelled Chloride Cancelled Carbon Dioxide Cancelled Anion Gap Cancelled BUN Cancelled Creatinine Cancelled BUN/Creatinine Ratio Cancelled Coagulation PT Cancelled INR Cancelled Hematology CBC w Diff NO MAN DIFF REQ WBC (4.8 - 10.8 /CUMM) 11.8 H RBC (4.70 - 6.10 /CUMM) 3.46 L Hgb (14.0 - 18.0 G/DL) 10.6 L Hct (42 - 52 %) 31.1 L MCV (80.0 - 94.0 FL) 89.9 MCH (27.0 - 31.0 PG) 30.6 RDW (11.5 - 14.5 %) 13.3 Plt Count (130 - 400 /CUMM) 437 H MPV (7.4 - 10.4 FL) 7.6 Gran % (42.2 - 75.2 %) 74.5 Lymphocytes % (20.5 - 51.1 %) 16.5 L Monocytes % (1.7 - 9.3 %) 7.2 Eosinophils % (0 - 5 %) 1.3 Basophils % (0.0 - 2.0 %) 0.5 Absolute Granulocytes (1.4 - 6.5 /CUMM) 8.8 H Absolute Lymphocytes (1.2 - 3.4 /CUMM) 1.9 Absolute Monocytes (0.10 - 0.60 /CUMM) 0.8 H Absolute Eosinophils (0.0 - 0.7 /CUMM) 0.1 Absolute Basophils (0.0 - 0.2 /CUMM) 0.1 PUBS MCHC (33.0 - 37.0 G/DL) 34.0 03/ 0520 Chemistry Sodium (137 - 145 mmol/L) 137 Potassium (3.5 - 5.1 mmol/L) 3.5 Chloride (98 - 107 mmol/L) 99 Carbon Dioxide (22 - 30 mmol/L) 31 H Anion Gap (5 - 16) 7 BUN (9 - 20 mg/dL) 6 L Creatinine (0.7 - 1.2 mg/dL) 0.5 L Estimated GFR (>60 ml/min) > 60 BUN/Creatinine Ratio (7 - 25 %) 12.0 Magnesium (1.6 - 2.3 mg/dL) 1.6 Last 24 Hours of Ramin Results: No recent cultures Assessment/Plan Impression: Stable status post further debridement in the OR 3 days ago for polymicrobial osteomyelitis (Group B strep, 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 He remains afebrile with white blood cell count decreasing suggesting a response to his recent debridement. Suggestion: 1. Continue Unasyn to complete a total of 4 weeks of antibiotics from his most recent debridement (until June 05) 2. Weekly ESR while on antibiotics
[2016-05-11 21:57] VITALS: BP 130/70
[2016-05-12 06:34] VITALS: BP 142/80
[2016-05-12 08:02] LABS: ABSOLUTE BASOPHIL COUNT 0.1 /CUMM (0.0-0.2); ABSOLUTE EOSINOPHIL COUNT 0.1 /CUMM (0.0-0.7); ABSOLUTE LYMPH COUNT 2.2 /CUMM (1.2-3.4); ABSOLUTE MONOCYTE COUNT 0.8 /CUMM (0.10-0.60); BASOPHIL % 0.6 % (0.0-2.0); EOSINOPHIL % 1.2 % (0-5); GRANULOCYTE % 71.4 % (42.2-75.2); HEMATOCRIT 30.9 % (42-52); MEAN CORPUSCULAR HGB 30.2 PG (27.0-31.0); MEAN CORPUSCULAR HGB CONC 33.4 G/DL (33.0-37.0); MEAN CORPUSCULAR VOLUME 90.3 FL (80.0-94.0); MEAN PLATELET VOLUME 7.7 FL (7.4-10.4); PLATELET COUNT 415 /CUMM (130-400); RBC DISTRIBUTION WIDTH 13.7 % (11.5-14.5); RED BLOOD CELL CT 3.42 /CUMM (4.70-6.10); WHITE BLOOD CELL COUNT 11.3 /CUMM (4.8-10.8)
--- NOTE | 2016-05-12 08:51 | PN- Medicine Consult ---
BARBARALEONID 05/12/16 0851: Assessment/Plan Assessment/Plan Assessment: This is a 45-year-old Obese man with past medical history of poorly controlled diabetes, hypertension, chronic non healing ulcer of plantar aspect of his right foot status post multiple debridements in past by Dr. Dowd, history of multi loculated abscess in posterior neck status post I&D in 2016, history of C. difficile and obstructive sleep apnea not using CPAP anymore. 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 He was admitted for debridement and IV antibiotics. Plan: Sepsis secondary to chronic nonhealing ulcer of right foot now with cellulitis and gas gangrene - Doing well post-op - Continue Unasyn (Day today - 05/03/16) - Underwent open incision and drainage deep to the D fashion with exposure of the Achilles tendon tendon sheath multiple sites both proximally and distally right leg, revisional partial first ray resection right foot, and excisional debridement on May 05. - Wound vac changed yesterday Acute kidney injury It has resolved. Creatinine down to 0.5 from a maximum of 1.9. Labs from this morning are pending. History of poorly controlled diabetes mellitus - Endocrine following, Kalyan bennett SSC. History of hypertension Patient has history of hypertension he is on amlodipine 5 mg daily and Lisinopril to 40 mg daily. Blood pressure rmuch better 2/2 pain? #Leukocytosis - Resolving. Echo did not show any evidence of vegetations, but was a difficult study. Subjective Subjective: Patient seen and examined at [facility]. Offers no complaints Review of Systems Constitutional: Denies: chills, fever, weakness. EENTM: Denies: visual changes. Cardiovascular: Denies: chest pain, palpitations, peripheral edema. Respiratory: Denies: cough, short of breath, sputum production. Gastrointestinal: Denies: abdominal pain, nausea, vomiting. Genitourinary: Reports: no symptoms. Musculoskeletal: Reports: no symptoms. Neurological/Psychological: Denies: headache, numbness, tingling, tremors. Objective Last 24 Hrs of Vital Signs/I&O Vital Signs Date Time Temp Pulse Resp B/P Pulse O2 O2 Flow FiO2 Ox Delivery Rate 05/12 0839 130/88 05/12 0839 130/88 05/12 0634 98.9 91 20 142/80 95 Room Air 05/12 0000 93 Room Air / 2157 98.2 75 20 130/70 93 03/06 1402 98.2 68 20 130/80 98 Intake & Output 05/12 1600 05/12 0800 / 0000 Intake Total 550 450 Output Total 1150 Balance -600 450 Intake, IV 150 150 Intake, Oral 400 300 Output, 50 Drainage Output, Urine 1100 Physical Exam General Appearance: no apparent distress, alert, awake, comfortable Head: atraumatic, normal appearance Ears, Nose, Throat: normal pharynx Neck: normal inspection, supple Cardiovascular: regular rate/rhythm Respiratory: normal breath sounds, chest non-tender, no respiratory distress, quiet respiration, lungs clear Abdomen: normal bowel sounds, soft, non-tender Extremities: has wound dressiing on R lower extremity with wound vac in place. B /L LE edema trace Neurologic/Psychiatric: no motor/sensory deficits, awake, alert, oriented x 3 Current Medications: Current Medications Sig/Angela Start time Last Medication Dose Route Stop Time Status Admin Acetaminophen 650 MG Q6-PRN PRN 04/29 2014 AC PO Amlodipine Besylate 5 MG DAILY 04/30 1000 AC 05/12 PO 0839 Ampicillin Sodium/ 3,000 MG Q6H 05/05 2000 AC 05/12 Sulbactam Sodium IV 0828 Sodium Chloride 100 ML Atorvastatin Calcium 20 MG DAILY 04/30 1000 AC 05/12 PO 0839 Heparin Sodium 5,000 UNIT Q8 05/08 1400 AC 05/12 (Porcine) SC 0447 Insulin Aspart 0 TIDAC/HS 05/08 1700 AC 05/12 SC 0828 Insulin Detemir 24 UNITS BID 05/11 2200 AC 05/12 SC 0840 Lisinopril 40 MG DAILY 05/07 1000 AC 05/12 PO 0839 Morphine Sulfate 4 MG DAILY 05/07 1134 AC 05/11 IV 1137 Oxycodone HCl 5 MG Q4-PRN PRN 04/29 2030 AC 05/12 PO 0839 Patient Medication 1 ED .STK-MED ONE 05/11 1416 ID Teaching ED 05/11 1417 Polyethylene Glycol 17 GM DAILY 04/30 1145 AC 05/06 PO 1007 Results Last 24 Hrs Lab/Ramin Results: Laboratory Tests 05/12/16 0500: Anion Gap 7, Estimated GFR > 60, BUN/Creatinine Ratio 11.7, CBC w Diff NO MAN DIFF REQ, RBC 3.42 L, MCV 90.3, MCH 30.2, RDW 13.7, MPV 7.7, Gran % 71.4, Lymphocytes % 19.6 L, Monocytes % 7.2, Eosinophils % 1.2, Basophils % 0.6, Absolute Granulocytes 8.0 H, Absolute Lymphocytes 2.2, Absolute Monocytes 0.8 H, Absolute Eosinophils 0.1, Absolute Basophils 0.1, PUBS MCHC 33.4 05/11/16 1220: CBC w Diff NO MAN DIFF REQ, RBC 3.46 L, MCV 89.9, MCH 30.6, RDW 13.3, MPV 7.6, Gran % 74.5, Lymphocytes % 16.5 L, Monocytes % 7.2, Eosinophils % 1.3, Basophils % 0.5, Absolute Granulocytes 8.8 H, Absolute Lymphocytes 1.9, Absolute Monocytes 0.8 H, Absolute Eosinophils 0.1, Absolute Basophils 0.1, PUBS MCHC 34.0 05/11/16 0911: PT Cancelled, INR Cancelled NEEL PERKINS,MARAH 05/12/16 0912: Attending MD Review Statement Attending Sign Off Other Findings: I have: examined this patient, reviewed [facility] EMR data, discussd w/resident/PA/ SOAP GRINDER, discussed mgmt plan w/pt, agreed w/resident/PA/SOAP GRINDER. Other Findings: Patient is feeling well and denies any new fever or chills. His vital dressing was changed by Dr. Dowd yesterday. Wound VAC is on. His pain is well controlled on current medications. Exam is unremarkable. Chest is clear and abdomen is obese soft nontender. Labs were reviewed and are currently stable except that his white cell count is still persistently elevated. Plan to continue Unasyn for a total of 4 weeks. Patient has a PICC line. His currently waiting short-term rehabilitation placement. His blood sugars are much better controlled after increasing Levemir yesterday.
--- NOTE | 2016-05-12 12:44 | PN- Diabetes ---
Assessment/Plan Assessment: 45-year-old Obese man with past medical history of poorly controlled diabetes type 2 with HbA1c of 12%, was admitted for diabetic right foot infection with cellulitis of right lower extremity and positive blood culture of gram positive cocci. He underwent multiple surgical procedures. Currently he is on Levemir 24 units twice a day. Novolog coverage before meals and Novolog coverage at bedtime. His FSGs were 152, 147, 183, 176 and 176. Plan: continue the current insulin regimen for now; monitor FSGs; will follow. Subjective Subjective: He feels well this morning. Objective Last 24 Hrs of Vital Signs/I&O Vital Signs Date Time Temp Pulse Resp B/P Pulse O2 O2 Flow FiO2 Ox Delivery Rate 05/13 0739 130/88 05/12 0839 130/88 05/12 0634 98.9 91 20 142/80 95 Room Air 05/12 0000 93 Room Air 05/11 2157 98.2 75 20 130/70 93 05/11 1402 98.2 68 20 130/80 98 Intake & Output 05/12 1600 05/12 0800 05/12 0000 Intake Total 550 450 Output Total 950 1150 Balance -950 -600 450 Intake, IV 150 150 Intake, Oral 400 300 Output, 50 Drainage Output, Urine 950 1100 Findings Pertinent Lab/Ramin Results: Laboratory Tests 05/12 0500 Chemistry Sodium (137 - 145 mmol/L) 137 Potassium (3.5 - 5.1 mmol/L) 4.0 Chloride (98 - 107 mmol/L) 98 Carbon Dioxide (22 - 30 mmol/L) 32 H Anion Gap (5 - 16) 7 BUN (9 - 20 mg/dL) 7 L Creatinine (0.7 - 1.2 mg/dL) 0.6 L Estimated GFR (>60 ml/min) > 60 BUN/Creatinine Ratio (7 - 25 %) 11.7 Hematology CBC w Diff NO MAN DIFF REQ WBC (4.8 - 10.8 /CUMM) 11.3 H RBC (4.70 - 6.10 /CUMM) 3.42 L Hgb (14.0 - 18.0 G/DL) 10.3 L Hct (42 - 52 %) 30.9 L MCV (80.0 - 94.0 FL) 90.3 MCH (27.0 - 31.0 PG) 30.2 RDW (11.5 - 14.5 %) 13.7 Plt Count (130 - 400 /CUMM) 415 H MPV (7.4 - 10.4 FL) 7.7 Gran % (42.2 - 75.2 %) 71.4 Lymphocytes % (20.5 - 51.1 %) 19.6 L Monocytes % (1.7 - 9.3 %) 7.2 Eosinophils % (0 - 5 %) 1.2 Basophils % (0.0 - 2.0 %) 0.6 Absolute Granulocytes (1.4 - 6.5 /CUMM) 8.0 H Absolute Lymphocytes (1.2 - 3.4 /CUMM) 2.2 Absolute Monocytes (0.10 - 0.60 /CUMM) 0.8 H Absolute Eosinophils (0.0 - 0.7 /CUMM) 0.1 Absolute Basophils (0.0 - 0.2 /CUMM) 0.1 PUBS MCHC (33.0 - 37.0 G/DL) 33.4
--- NOTE | 2016-05-12 14:31 | PN- Podiatry ---
Subjective Subjective: Patient seen at bedside with no acute complaints. Patient denies nausea vomiting fever chills. Minimal pain right foot. Objective Vital Signs and I&Os Vital Signs Date Time Temp Pulse Resp B/P Pulse O2 O2 Flow FiO2 Ox Delivery Rate 05/12 838 130/88 05/13 0739 130/88 05/12 0534 98.9 91 20 142/80 95 Room Air 05/12 0000 93 Room Air 05/11 2157 98.2 75 20 130/70 93 Intake & Output 05/12 1600 05/12 0000 05/11 1600 05/11 0805/11 0000 Intake Total 550 450 800 510 510 Output Total 950 1150 2500 800 800 Balance -950 -600 450 -1700 -290 -290 Intake, IV 150 150 150 150 Intake, Oral 400 300 800 360 360 Number 0 Bowel Movements Output, 50 Drainage Output, Urine 950 1100 2500 800 800 Physical Exam: Wound VAC in place right foot. Proximal 300 mL of serosanguineous drainage noted to the canister. Assessment/Plan Assessment/Plan Right foot cellulitis and osteomyelitis. Continue IV antibiotics. We will change back tomorrow. DC pending placement. Core Measures/Miscellaneous Venous Thromboembolism VTE Risk Factors: Age > 40, Obesity, Surgery VTE Contraindications: No Contraindications VTE Diagnosis: No Beta Rome Is Beta Rome a Home Med? No Antibiotics Is Patient on Antibiotics? Yes If Yes: infection Attending MD Review Statement Attending Statement Attending MD Statement: examined this patient
[2016-05-12 14:52] VITALS: BP 120/80
[2016-05-12 23:22] VITALS: BP 148/80
[2016-05-13 06:54] VITALS: BP 120/80
--- NOTE | 2016-05-13 07:36 | PN- Medicine Consult ---
BARBARALEONID 05/13/16 0735: Assessment/Plan Assessment/Plan Assessment: This is a 45-year-old obese man with past medical history of poorly controlled diabetes, hypertension, chronic non healing ulcer of plantar aspect of his right foot status post multiple debridements in past by Dr. Dowd, history of multi loculated abscess in posterior neck status post I&D in 2016, history of C. difficile and obstructive sleep apnea not using CPAP anymore. 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 He was admitted for debridement and IV antibiotics. Plan: Sepsis secondary to chronic nonhealing ulcer of right foot now with cellulitis and gas gangrene - Doing well post-op - Continue Unasyn (Day 10 today - 05/03/16) - Underwent open incision and drainage deep to the D fashion with exposure of the Achilles tendon tendon sheath multiple sites both proximally and distally right leg, revisional partial first ray resection right foot, and excisional debridement on May 05. - Wound vac in place - Awaiting placement to STR History of poorly controlled diabetes mellitus - Endocrine following, Levemir and insulin SSC. - FSG's 162,163,262,262 History of hypertension Patient has history of hypertension he is on amlodipine 5 mg daily and Lisinopril to 40 mg daily. Blood pressure much better controlled #Leukocytosis - Resolving. Echo did not show any evidence of vegetations, but was a difficult study. Subjective Subjective: Patient seen and examined at bedside. He has no complaints and denies chest pain , shortness of breath. Remains afebrile Review of Systems Constitutional: Denies: chills, fever, weakness. EENTM: Denies: visual changes. Cardiovascular: Denies: chest pain, palpitations, peripheral edema. Respiratory: Denies: cough, short of breath, sputum production, wheezing. Gastrointestinal: Denies: abdominal pain, constipation, diarrhea, nausea, vomiting. Genitourinary: Reports: no symptoms. Musculoskeletal: Reports: no symptoms. Neurological/Psychological: Denies: headache, numbness, tingling, tremors. Objective Last 24 Hrs of Vital Signs/I&O Vital Signs Date Time Temp Pulse Resp B/P Pulse O2 O2 Flow FiO2 Ox Delivery Rate 05/13 0654 98.0 85 20 120/80 94 Room Air 05/12 2322 98.4 87 20 148/80 93 Room Air 05/12 1452 98.7 58 20 120/80 96 03/07 0839 130/88 03/07 0839 130/88 Intake & Output 05/13 0800 05/13 0000 05/12 1600 Intake Total 859 316 5877 Output Total 6375 482 2574 Balance -915 235 -350 Intake, IV 150 300 200 Intake, Oral 611 353 4871 Output, Urine 1436 999 5481 Physical Exam General Appearance: no apparent distress, alert, awake, obese Head: atraumatic, normal appearance Ears, Nose, Throat: normal pharynx Neck: normal inspection, supple Cardiovascular: regular rate/rhythm Respiratory: normal breath sounds, chest non-tender, no respiratory distress, quiet respiration, lungs clear Abdomen: normal bowel sounds, soft, non-tender Extremities: wound dressing and vac in place on right foot; b/l lower extremity edema 1+ Neurologic/Psychiatric: no motor/sensory deficits, awake, alert, oriented x 3, normal gait, normal mood/affect Current Medications: Current Medications Sig/Angela Start time Last Medication Dose Route Stop Time Status Admin Acetaminophen 650 MG Q6-PRN PRN 04/29 2014 PO Amlodipine Besylate 5 MG DAILY 04/30 1000 AC 05/12 PO 0839 Ampicillin Sodium/ 3,000 MG Q6H 05/05 2000 AC 05/13 Sulbactam Sodium IV 0118 Sodium Chloride 100 ML Atorvastatin Calcium 20 MG DAILY 04/30 1000 AC 05/12 PO 0839 Heparin Sodium 5,000 UNIT Q8 05/08 1400 AC 05/13 (Porcine) GA 0613 Insulin Aspart 0 TIDAC/HS 05/08 1700 AC 05/12 GA 2055 Insulin Detemir 24 UNITS BID 05/11 2200 AC 05/12 GA 205 Lisinopril 40 MG DAILY 05/07 1000 AC 05/12 PO 0839 Melatonin 5 MG AT BEDTIME 05/12 2200 AC 05/12 PO 205 Morphine Sulfate 4 MG DAILY 05/07 1134 AC 05/11 IV 1137 Nystatin 1 DANIELLE TID PRN 05/12 09 [facility] Oxycodone HCl 5 MG Q4-PRN PRN 04/29 2030 AC 05/12 PO 2055 Polyethylene Glycol 17 GM DAILY 04/30 1145 AC 05/06 PO 1007 Results Last 24 Hrs Lab/Ramin Results: Laboratory Tests 05/13/16 0615: CBC w Diff Pending, WBC Pending, RBC Pending, Hgb Pending, Hct Pending, MCV Pending, MCH Pending, RDW Pending, Plt Count Pending, MPV Pending, PUBS MCHC Pending NEEL PERKINS,MARAH 05/13/16 1040: Attending MD Review Statement Attending Sign Off Other Findings: I have: examined this patient, reviewed [facility] EMR data, discussd w/resident/PA/ VAT PACKER, discussed mgmt plan w/pt, agreed w/resident/PA/VAT PACKER. Other Findings: Patient is feeling well and denies any new fever or chills. Wound VAC is on. His pain is well controlled on current medications. Exam is unremarkable. Chest is clear and abdomen is obese soft nontender. Labs were reviewed and are currently stable. His WBC count is now 10. Plan to continue Unasyn for a total of 4 weeks. Patient has a PICC line. His currently waiting short-term rehabilitation placement. Plans for change of dressing at the bedside by Dr. Dowd today. His blood sugars are much better controlled after increasing Levemir. His highest blood sugar was 262 from 9 PM last night. We'll await further recommendation from Dr. dawkins.
[2016-05-13 07:57] LABS: ABSOLUTE BASOPHIL COUNT 0.1 /CUMM (0.0-0.2); ABSOLUTE EOSINOPHIL COUNT 0.2 /CUMM (0.0-0.7); ABSOLUTE GRANULOCYTE CT 7.2 /CUMM (1.4-6.5); ABSOLUTE LYMPH COUNT 1.5 /CUMM (1.2-3.4); ABSOLUTE MONOCYTE COUNT 1.1 /CUMM (0.10-0.60); BASOPHIL % 0.6 % (0.0-2.0); EOSINOPHIL % 1.7 % (0-5); GRANULOCYTE % 71.9 % (42.2-75.2); HEMATOCRIT 30.7 % (42-52); MEAN CORPUSCULAR HGB 30.2 PG (27.0-31.0); MEAN CORPUSCULAR HGB CONC 33.2 G/DL (33.0-37.0); MEAN CORPUSCULAR VOLUME 90.9 FL (80.0-94.0); MEAN PLATELET VOLUME 7.9 FL (7.4-10.4); PLATELET COUNT 396 /CUMM (130-400); RBC DISTRIBUTION WIDTH 13.8 % (11.5-14.5); RED BLOOD CELL CT 3.38 /CUMM (4.70-6.10)
[2016-05-13 14:16] VITALS: BP 130/70
--- NOTE | 2016-05-13 15:23 | PN- Infect Dx ---
Subjective Subjective: Afebrile without complaints Objective Last 24 Hrs of Vital Signs/I&O Vital Signs Date Time Temp Pulse Resp B/P Pulse O2 O2 Flow FiO2 Ox Delivery Rate 05/13 1416 98.2 91 20 130/70 96 05/13 0946 122/84 05/13 0654 98.0 85 20 120/80 94 Room Air 05/12 2322 98.4 87 20 148/80 93 Room Air Intake & Output 05/13 1600 05/13 0800 05/13 0000 Intake Total 510 540 Output Total 1425 775 Balance -915 -235 Intake, IV 150 300 Intake, Oral 360 240 Output, Urine 1425 775 Physical Exam Other Physical Findings: He appears comfortable in no acute distress Extremities right foot dressing intact, with wound VAC in place; PICC in the right upper extremity with no inflammation at the site Results Last 24 Hours of Lab Results: Laboratory Tests 05/13 614 Hematology CBC w Diff NO MAN DIFF REQ WBC (4.8 - 10.8 /CUMM) 10.0 RBC (4.70 - 6.10 /CUMM) 3.38 L Hgb (14.0 - 18.0 G/DL) 10.2 L Hct (42 - 52 %) 30.7 L MCV (80.0 - 94.0 FL) 90.9 MCH (27.0 - 31.0 PG) 30.2 RDW (11.5 - 14.5 %) 13.8 Plt Count (130 - 400 /CUMM) 396 MPV (7.4 - 10.4 FL) 7.9 Gran % (42.2 - 75.2 %) 71.9 Lymphocytes % (20.5 - 51.1 %) 14.6 L Monocytes % (1.7 - 9.3 %) 11.2 H Eosinophils % (0 - 5 %) 1.7 Basophils % (0.0 - 2.0 %) 0.6 Absolute Granulocytes (1.4 - 6.5 /CUMM) 7.2 H Absolute Lymphocytes (1.2 - 3.4 /CUMM) 1.5 Absolute Monocytes (0.10 - 0.60 /CUMM) 1.1 H Absolute Eosinophils (0.0 - 0.7 /CUMM) 0.2 Absolute Basophils (0.0 - 0.2 /CUMM) 0.1 PUBS MCHC (33.0 - 37.0 G/DL) 33.2 Last 24 Hours of Ramin Results: No recent cultures Assessment/Plan Impression: Stable, with both temperatures and white blood cell count normal, status post most recent debridement 4 days ago for polymicrobial osteomyelitis (Group B strep, 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 Suggestion: 1. Continue Unasyn to complete a total of 4 weeks of antibiotics from his most recent debridement (until June 05) 2. Weekly ESR while on antibiotics
--- NOTE | 2016-05-13 16:09 | PN- Diabetes ---
Assessment/Plan Assessment: 45-year-old Obese man with past medical history of poorly controlled diabetes type 2 with HbA1c of 12%, was admitted for diabetic right foot infection with cellulitis of right lower extremity and positive blood culture of gram positive cocci. He underwent multiple surgical procedures. Currently he is on Levemir 24 units twice a day. Novolog coverage before meals and Novolog coverage at bedtime. His FSGs were 176, 162, 163, 262 and 189. Plan: continue the current insulin regimen for now. monitor FSGs. will follow. Subjective Subjective: He feels well. Objective Last 24 Hrs of Vital Signs/I&O Vital Signs Date Time Temp Pulse Resp B/P Pulse O2 O2 Flow FiO2 Ox Delivery Rate 05/13 1416 98.2 91 20 130/70 96 05/13 0946 122/84 05/13 0654 98.0 85 20 120/80 94 Room Air 05/12 2322 98.4 87 20 148/80 93 Room Air Intake & Output 05/13 1600 05/13 0800 05/13 0000 Intake Total 1450 510 540 Output Total 1500 1425 775 Balance -50 -915 -235 Intake, IV 250 150 300 Intake, Oral 1200 360 240 Number 1 Bowel Movements Output, Urine 1500 1425 775 Findings Pertinent Lab/Ramin Results: Laboratory Tests 05/13 0615 Hematology CBC w Diff NO MAN DIFF REQ WBC (4.8 - 10.8 /CUMM) 10.0 RBC (4.70 - 6.10 /CUMM) 3.38 L Hgb (14.0 - 18.0 G/DL) 10.2 L Hct (42 - 52 %) 30.7 L MCV (80.0 - 94.0 FL) 90.9 MCH (27.0 - 31.0 PG) 30.2 RDW (11.5 - 14.5 %) 13.8 Plt Count (130 - 400 /CUMM) 396 MPV (7.4 - 10.4 FL) 7.9 Gran % (42.2 - 75.2 %) 71.9 Lymphocytes % (20.5 - 51.1 %) 14.6 L Monocytes % (1.7 - 9.3 %) 11.2 H Eosinophils % (0 - 5 %) 1.7 Basophils % (0.0 - 2.0 %) 0.6 Absolute Granulocytes (1.4 - 6.5 /CUMM) 7.2 H Absolute Lymphocytes (1.2 - 3.4 /CUMM) 1.5 Absolute Monocytes (0.10 - 0.60 /CUMM) 1.1 H Absolute Eosinophils (0.0 - 0.7 /CUMM) 0.2 Absolute Basophils (0.0 - 0.2 /CUMM) 0.1 PUBS MCHC (33.0 - 37.0 G/DL) 33.2
--- NOTE | 2016-05-13 20:30 | PN- Podiatry ---
Subjective Subjective: Patient seen at bedside without new compliants. Afebrile overnight. Objective Vital Signs and I&Os Vital Signs Date Time Temp Pulse Resp B/P Pulse O2 O2 Flow FiO2 Ox Delivery Rate 05/13 1740 Room Air 05/13 1416 98.2 91 20 130/70 96 05/13 0946 122/84 05/13 0654 98.0 85 20 120/80 94 Room Air 05/12 2322 98.4 87 20 148/80 93 Room Air Intake & Output 05/13 1600 05/13 0805/13 0000 05/12 1600 05/12 0800 05/12 0000 Intake Total 1450 783 942 8512 550 450 Output Total 1500 0107 995 3139 1150 Balance -50 -915 -235 -350 -600 450 Intake, IV 250 150 300 200 150 150 Intake, Oral 1200 993 930 6566 400 300 Number 1 Bowel Movements Output, 50 Drainage Output, Urine 1500 1464 989 8286 1100 Physical Exam: VAC in place with approximately 200 cc of serosanguinous drainage to canister. Decreased edema and cellulitis right leg. Assessment/Plan Assessment/Plan Cellultis with osteomyelitis. Continue IV antibiotics per ID recommendations. Discharge pending placement. Core Measures/Miscellaneous Venous Thromboembolism VTE Risk Factors: Age > 40, Obesity, Surgery VTE Contraindications: No Contraindications VTE Diagnosis: No Beta Rome Is Beta Rome a Home Med? No Antibiotics Is Patient on Antibiotics? Yes If Yes: infection Attending MD Review Statement Attending Statement Attending MD Statement: examined this patient
[2016-05-13 23:16] VITALS: BP 130/80
[2016-05-14 06:44] VITALS: BP 130/90
--- NOTE | 2016-05-14 07:22 | PN- Medicine Consult ---
BARBARALEONID 05/14/16 0722: Assessment/Plan Assessment/Plan Assessment: This is a 45-year-old obese man with past medical history of poorly controlled diabetes, hypertension, chronic non healing ulcer of plantar aspect of his right foot status post multiple debridements in past by Dr. Dowd, history of multi loculated abscess in posterior neck status post I&D in 2016, history of C. difficile and obstructive sleep apnea not using CPAP anymore. 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 He was admitted for debridement and IV antibiotics. Plan: Sepsis secondary to chronic nonhealing ulcer of right foot now with cellulitis and gas gangrene - Doing well post-op - Continue Unasyn (Day 11 today - 05/03/16) - Underwent open incision and drainage deep to the D fashion with exposure of the Achilles tendon tendon sheath multiple sites both proximally and distally right leg, revisional partial first ray resection right foot, and excisional debridement on May 05. - Wound vac in place - Awaiting placement to STR History of poorly controlled diabetes mellitus - Endocrine following, Levemir and insulin SSC. - FSG's 189, 154, 158, 220 History of hypertension Patient has history of hypertension he is on amlodipine 5 mg daily and Lisinopril to 40 mg daily. Blood pressure much better controlled. #Leukocytosis - Resolved Subjective Subjective: Patient seen and examined at bedside. He has no complaints. Remaisn afebrile. Review of Systems Constitutional: Denies: chills, fever, weakness. EENTM: Denies: visual changes. Cardiovascular: Denies: chest pain, edema, orthopena, palpitations, peripheral edema. Respiratory: Denies: cough, hemoptysis, short of breath, sputum production, wheezing. Gastrointestinal: Denies: abdominal pain, constipation, diarrhea, nausea, vomiting. Genitourinary: Reports: no symptoms. Musculoskeletal: Reports: no symptoms. Neurological/Psychological: Denies: headache, numbness, tingling, tremors, unable to move lower ext, unable to move upper ext. Objective Last 24 Hrs of Vital Signs/I&O Vital Signs Date Time Temp Pulse Resp B/P Pulse O2 O2 Flow FiO2 Ox Delivery Rate 05/14 0644 98.0 91 20 130/90 99 05/13 2316 98.9 93 20 130/80 92 Room Air 05/13 1740 Room Air 05/13 1416 98.2 91 20 130/70 96 / 0946 122/84 Intake & Output 05/14 0800 05/14 0000 05/13 1600 Intake Total 900 1450 Output Total 750 1500 Balance 150 -50 Intake, IV 200 250 Intake, Oral 700 1200 Number 1 Bowel Movements Output, Urine 750 1500 Physical Exam General Appearance: well developed/nourished, no apparent distress, alert, awake , comfortable Ears, Nose, Throat: normal pharynx Neck: normal inspection, supple Cardiovascular: regular rate/rhythm Respiratory: normal breath sounds, chest non-tender, no respiratory distress, quiet respiration, lungs clear Abdomen: normal bowel sounds, soft, non-tender Extremities: wound dressing on right foot, with wound vac; B/L lower extremity edema Neurologic/Psychiatric: no motor/sensory deficits, awake, alert, oriented x 3 Current Medications: Current Medications Sig/Angela Start time Last Medication Dose Route Stop Time Status Admin Acetaminophen 650 MG Q6-PRN PRN 04/29 2014 AC PO Amlodipine Besylate 5 MG DAILY 04/30 1000 AC 05/13 PO 0946 Ampicillin Sodium/ 3,000 MG Q6H 05/05 2000 AC 05/14 Sulbactam Sodium IV 0111 Sodium Chloride 100 ML Atorvastatin Calcium 20 MG DAILY 04/30 1000 AC 05/13 PO 0944 Heparin Sodium 5,000 UNIT Q8 05/08 1400 AC 05/14 (Porcine) SC 0521 Insulin Aspart 0 TIDAC/HS 05/08 1700 AC 05/13 SC 2211 Insulin Detemir 24 UNITS BID 05/11 2200 AC 05/13 SC 2211 Lisinopril 40 MG DAILY 05/07 1000 AC 05/13 PO 0944 Melatonin 5 MG AT BEDTIME 05/12 2200 AC 05/13 PO 2210 Morphine Sulfate 4 MG DAILY 05/07 1134 AC 05/13 IV 1708 Nystatin 1 DANIELLE TID PRN 05/12 09 AC TOP Oxycodone HCl 5 MG Q4-PRN PRN 04/29 2030 AC 05/13 PO 2014 Patient Medication 1 ED .STK-MED ONE 05/13 1359 [place] Teaching [facility] 05/13 1400 Polyethylene Glycol 17 GM DAILY 04/30 1145 AC 05/06 PO 1007 Results Last 24 Hrs Lab/Ramin Results: Laboratory Tests 05/13/16 0615: CBC w Diff NO MAN DIFF REQ, RBC 3.38 L, MCV 90.9, MCH 30.2, RDW 13.8, MPV 7.9, Gran % 71.9, Lymphocytes % 14.6 L, Monocytes % 11.2 H, Eosinophils % 1.7, Basophils % 0.6, Absolute Granulocytes 7.2 H, Absolute Lymphocytes 1.5, Absolute Monocytes 1.1 H, Absolute Eosinophils 0.2, Absolute Basophils 0.1, PUBS MCHC 33.2 NEEL PERKINS,MARAH 05/14/16 1031: Attending MD Review Statement Attending Sign Off Other Findings: Attending Sign Off Other Findings: I have: examined this patient, reviewed [facility] EMR data, discussd w/resident/PA/ SOFTWARE DEVELOPMENT TEST ENGINEER, discussed mgmt plan w/pt, agreed w/resident/PA/SOFTWARE DEVELOPMENT TEST ENGINEER. Other Findings: Patient is feeling well and denies any new fever or chills. Wound VAC is on. His pain is well controlled on current medications. Exam is unremarkable. Chest is clear and abdomen is obese soft nontender. Labs were reviewed and are currently stable. No new labs done today. Plan to continue Unasyn for a total of 4 weeks. Patient has a PICC line. His currently waiting short-term rehabilitation placement. His blood sugars are much better controlled after increasing Levemir. His highest blood sugar was 220 from 9 PM last night. Agree with increasing Levemir further as per Dr. dawkins. Patient is waiting for short-term rehabilitation bed.
--- NOTE | 2016-05-14 08:36 | PN- Diabetes ---
Assessment/Plan Assessment: 45-year-old Obese man with past medical history of poorly controlled diabetes type 2 with HbA1c of 12%, was admitted for diabetic right foot infection with cellulitis of right lower extremity and positive blood culture of gram positive cocci. He underwent multiple surgical procedures. Currently he is on Levemir 24 units twice a day. Novolog coverage before meals and Novolog coverage at bedtime. His FSGs were 189, 154, 220 and 180. Plan: 1. increase Levemir to 27 units twice a day; 2. continue the current Novolog coverage before meals and Novolog coverage at bedtime; 3. monitor FSGs. will follow. Subjective Subjective: He has no special complaints this morning. Objective Last 24 Hrs of Vital Signs/I&O Vital Signs Date Time Temp Pulse Resp B/P Pulse O2 O2 Flow FiO2 Ox Delivery Rate 05/14 0644 98.0 91 20 130/90 99 05/13 2316 98.9 93 20 130/80 92 Room Air 05/13 1740 Room Air 05/13 1416 98.2 91 20 130/70 96 05/13 0946 122/84 Intake & Output 05/14 1600 05/14 0800 05/14 0000 Intake Total 630 900 Output Total 200 750 Balance 430 150 Intake, IV 150 200 Intake, Oral 480 700 Number 1 Bowel Movements Output, Urine 200 750
[2016-05-14 14:11] VITALS: BP 140/70
--- NOTE | 2016-05-14 16:32 | PN- Podiatry ---
Subjective Subjective: patient's bedside with no acute complains. Patient denies nausea vomiting fever chills. Objective Vital Signs and I&Os Vital Signs Date Time Temp Pulse Resp B/P Pulse O2 O2 Flow FiO2 Ox Delivery Rate 05/14 1411 98.0 80 18 140/70 96 Room Air 05/14 0644 98.0 91 20 130/90 99 / 2316 98.9 93 20 130/80 92 Room Air 05/13 1740 Room Air Intake & Output 05/14 1600 05/14 0800 05/14 0000 05/13 1600 05/13 0800 / 0000 Intake Total 988 339 7369 510 540 Output Total 800 623 850 3429 1575 775 Balance -800 430 -235 Intake, IV 150 200 250 150 300 Intake, Oral 484 841 1974 360 240 Number 1 1 1 Bowel Movements Output, Urine 800 351 625 4537 1575 775 Physical Exam: Wound VAC in place right foot and ankle with proximal May 4 100 mL of serosanguineous drainage noted to the canister. Assessment/Plan Assessment/Plan Cellulitis osteomyelitis right lower extremity. Anticipate discharge tomorrow and will change back tomorrow. Core Measures/Miscellaneous Venous Thromboembolism VTE Risk Factors: Age > 40, Obesity, Surgery VTE Contraindications: No Contraindications VTE Diagnosis: No Beta Rome Is Beta Rome a Home Med? No Antibiotics Is Patient on Antibiotics? Yes If Yes: infection Attending MD Review Statement Attending Statement Attending MD Statement: examined this patient
[2016-05-14 22:33] VITALS: BP 130/60
--- NOTE | 2016-05-15 07:16 | PN- Medicine Consult ---
LEONID JIMENEZ 05/15/16 0716: Assessment/Plan Assessment/Plan Assessment: This is a 45-year-old obese man with past medical history of poorly controlled diabetes, hypertension, chronic non healing ulcer of plantar aspect of his right foot status post multiple debridements in past by Dr. Dowd, history of multi loculated abscess in posterior neck status post I&D in 2016, history of C. difficile and obstructive sleep apnea not using CPAP anymore. 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 He was admitted for debridement and IV antibiotics. Plan: Sepsis secondary to chronic nonhealing ulcer of right foot now with cellulitis and gas gangrene - Doing well post-op - Continue Unasyn (Day 12 today - 05/03/16) - Underwent open incision and drainage deep to the D fashion with exposure of the Achilles tendon tendon sheath multiple sites both proximally and distally right leg, revisional partial first ray resection right foot, and excisional debridement on May 05. - Wound vac in place - Awaiting placement to STR History of poorly controlled diabetes mellitus - Endocrine following, Levemir and insulin SSC. - FSG's 180, 188, 178, 242 History of hypertension Patient has history of hypertension he is on amlodipine 5 mg daily and Lisinopril to 40 mg daily. Blood pressure much better controlled. #Leukocytosis - Resolved #Depression Patient was teary and family was concerned,. and wanted Psych to evaluate him for depression. Palced Psych consult. F/U recs Subjective Subjective: Patient seen and examined at bedside. He has no acute complaints. Vitals stable, remains afebrile. Plan for DC later today Review of Systems Constitutional: Denies: chills, fever, weakness. EENTM: Denies: visual changes. Cardiovascular: Denies: chest pain, palpitations. Respiratory: Denies: cough, short of breath, sputum production, wheezing. Gastrointestinal: Denies: abdominal pain, nausea, vomiting. Genitourinary: Denies: discharge, hematuria. Musculoskeletal: Reports: no symptoms. Neurological/Psychological: Denies: headache, numbness, tingling, tremors. Objective Last 24 Hrs of Vital Signs/I&O Vital Signs Date Time Temp Pulse Resp B/P Pulse O2 O2 Flow FiO2 Ox Delivery Rate 05/14 2233 98.5 93 20 130/60 94 05/14 1411 98.0 80 18 140/70 96 Room Air Intake & Output 05/15 0800 05/15 0000 05/14 1600 Intake Total 590 630 600 Output Total 825 530 845 Balance -235 100 -245 Intake, IV 150 150 100 Intake, Oral 440 480 500 Number 1 Bowel Movements Output, 175 30 45 Drainage Output, Urine 650 500 800 Physical Exam General Appearance: no apparent distress, alert, awake, comfortable, obese Head: atraumatic, normal appearance Neck: normal inspection, supple Cardiovascular: regular rate/rhythm Respiratory: normal breath sounds, chest non-tender, no respiratory distress, quiet respiration, lungs clear Abdomen: normal bowel sounds, soft, non-tender Extremities: has a wound dressing on his right foor with wound vac in place, b/l trace edema Neurologic/Psychiatric: no motor/sensory deficits, awake, alert, oriented x 3 Current Medications: Current Medications Sig/Angela Start time Last Medication Dose Route Stop Time Status Admin Acetaminophen 650 MG Q6-PRN PRN 04/29 2014 AC PO Amlodipine Besylate 5 MG DAILY 04/30 1000 AC 05/14 PO 1048 Ampicillin Sodium/ 3,000 MG Q6H 05/05 2000 AC 05/15 Sulbactam Sodium IV 0312 Sodium Chloride 100 ML Atorvastatin Calcium 20 MG DAILY 04/30 1000 AC 05/14 PO 1048 Heparin Sodium 5,000 UNIT Q8 05/08 1400 AC 05/15 (Porcine) SC 0618 Insulin Aspart 0 TIDAC/HS 05/08 1700 AC 05/14 SC 2121 Insulin Detemir 27 UNITS BID 05/14 1000 AC 05/14 SC 2122 Insulin Detemir 24 UNITS BID 05/11 2200 DC 05/13 SC 2211 Lisinopril 40 MG DAILY 05/07 1000 AC 05/14 PO 1048 Melatonin 5 MG AT BEDTIME 05/12 2200 AC 05/14 PO 2126 Morphine Sulfate 4 MG DAILY 05/07 1134 DC 08 IV 1708 Nystatin 1 DANIELLE TID PRN 05/12 09 TOP Oxycodone HCl 5 MG Q4-PRN PRN 04/29 2030 AC 05/14 PO 2126 Patient Medication 1 ED .STK-MED ONE 05/14 1401 [place] [facility] 05/14 1402 Polyethylene Glycol 17 GM DAILY 04/30 1145 AC 05/06 PO 1007 Results Last 24 Hrs Lab/Ramin Results: Laboratory Tests 05/15/16 0615: Sodium Pending, Potassium Pending, Chloride Pending, Carbon Dioxide Pending, Anion Gap Pending, BUN Pending, Creatinine Pending, BUN/Creatinine Ratio Pending , CBC w Diff Pending, WBC Pending, RBC Pending, Hgb Pending, Hct Pending, MCV Pending, MCH Pending, RDW Pending, Plt Count Pending, MPV Pending, PUBS MCHC Pending, ESR Westergren Pending NEEL EPRKINS,MARAH 05/15/16 1206: Attending MD Review Statement Attending Sign Off Other Findings: I have: examined this patient, reviewed aval EMR data, discussd w/resident/PA/ SALES SUPPORT REPRESENTATIVE, discussed mgmt plan w/pt, agreed w/resident/PA/SALES SUPPORT REPRESENTATIVE. Other Findings: Patient is feeling well and denies any new fever or chills. Wound VAC is on. His pain is well controlled on current medications. His right foot dressing was changed this morning by Dr. Dowd. Exam is unremarkable. Chest is clear and abdomen is obese soft nontender. Labs were reviewed and are currently stable. No new labs done today. His blood sugars are much better controlled after increasing Levemir. His highest blood sugar was 242 from 9 PM last night. Plan to continue Unasyn for a total of 4 weeks. Patient has a PICC line. His currently waiting short-term rehabilitation placement. Apparently there is a bed available at [facility] today. Patient will be discharged today.
[2016-05-15 07:40] VITALS: BP 128/62
[2016-05-15 08:08] LABS: ABSOLUTE BASOPHIL COUNT 0.1 /CUMM (0.0-0.2); ABSOLUTE EOSINOPHIL COUNT 0.1 /CUMM (0.0-0.7); ABSOLUTE GRANULOCYTE CT 7.9 /CUMM (1.4-6.5); ABSOLUTE LYMPH COUNT 1.8 /CUMM (1.2-3.4); ABSOLUTE MONOCYTE COUNT 1.1 /CUMM (0.10-0.60); BASOPHIL % 0.5 % (0.0-2.0); EOSINOPHIL % 1.1 % (0-5); GRANULOCYTE % 72.1 % (42.2-75.2); HEMATOCRIT 34.1 % (42-52); MEAN CORPUSCULAR HGB 30.1 PG (27.0-31.0); MEAN CORPUSCULAR HGB CONC 33.1 G/DL (33.0-37.0); MEAN CORPUSCULAR VOLUME 90.9 FL (80.0-94.0); MEAN PLATELET VOLUME 8.1 FL (7.4-10.4); PLATELET COUNT 421 /CUMM (130-400); RBC DISTRIBUTION WIDTH 13.9 % (11.5-14.5); RED BLOOD CELL CT 3.76 /CUMM (4.70-6.10); WHITE BLOOD CELL COUNT 10.9 /CUMM (4.8-10.8)
--- NOTE | 2016-05-15 08:25 | Surgical Discharge Summary ---
Visit Information Visit Dates Admission Date: 04/29/16 Discharge Date: 05/15/16 History of Present Illness Chief Complaint: Sg is a 45-year-old diabetic who has a history of a long-standing nonhealing ulceration to the plantar aspect of his right foot. Unfortunately, the patient developed interval worsening and developed a gas gangrene, complicated by necrotizing fasciitis. Urgent admission and I&D for his right foot complaint. Medical History Blood Transfusion Hx: No Neurological: NONE EENT: NONE Cardiovascular: hypertension, hyperlipidemia Respiratory: NONE Gastrointestinal: C. difficile Hepatic: NONE Renal: NONE Musculoskeletal: NONE Psychiatric: NONE Endocrine: diabetes, obesity Blood Disorders: NONE Cancer(s): NONE INTERNET E COMMERCE SPECIALIST/Reproductive: NONE History of MRSA: No History of VRE: No History of CDIFF: No Isolation History: Standard Influenza Vaccine: 05/02/16 Surgical History Pertinent Surgical History: appendectomy, status post I&D of a posterior neck abscess L SHOULDER SX Family History Relations & Conditions If Any: FATHER (coronary artery disease-status post angioplasty and stents). MOTHER (diverticulitis). BROTHER (diabetes). Relation not specified for: FH: diabetes mellitus Psychosocial History Where Do You Live? Home Who Do You Live With? Significant Other Services at Home: None What is Your Primary Language? St Helenian ETOH Use: occasional use Review of Systems: Unremarkable except for that noted in history of present illness Hospital Course Course Attending Physician: TERRY MALAGON DPM Primary Care Physician: CARLOS POLK MD Hospital Course: Patient was admitted for multiple debridements and was noted to develop a right first metatarsal osteomyelitis. The patient required extensive debridement and negative pressure wound therapy in addition to IV antibiotic coverage. The patient's leukocytosis was noted to normalize over the course of his admission and he defervesced approximately 5 days ago. Allergies: Coded Allergies: cephalexin (From KEFLEX) (Intermediate, HIVES 04/29/16) adhesive (Mild, IRRITATION 04/29/16) Disposition Summary Disposition Principal Diagnosis: Right foot osteomyelitis Additional Diagnosis: Gangrene right lower extremity Discharge Disposition: SNF Discharge Instructions General Discharge Information Code Status: Full Code Patient's Diet: 2200 kcal ADA diet Patient's Activity: Heel touch right foot with walker assist. Wednesday wound VAC dressing changes. Black granular foam sponge at -125 mmHg on a continuous setting. Follow-Up Instructions/Appts: Patient follow-up with Dr. Malagon on May 25 at 12:30 PM in the [facility]. Medications at Discharge Discharge Medications: Stop taking the following medications: Metformin Hydochloride (Glucophage 500MG Tab) 500 MG TABLET ORAL TWICE DAILY Qty = 60 Insulin Detemir (Levemir Flextouch) 100 UNIT/ML (3 ML) INSULN.PEN Inject into fatty tissue TWICE DAILY Sitagliptin Phosphate (Januvia) 100 MG TABLET ORAL DAILY Continue taking these medications: Amlodipine (Norvasc 5MG Tab) 5 MG TAB 5 Milligram ORAL DAILY Days = 30 Comments: LAST GIVEN 04/18/15 @ 9AM Lisinopril (Prinivil) 10 MG TAB 40 Milligram ORAL DAILY Days = 30 Comments: LAST GIVEN 04/18/15 @ 9AM Aspirin (Aspirin*) 81 MG TAB.CHEW 1 Tablet ORAL DAILY Lovastatin (Lovastatin) 20 MG TABLET 1 Tablet ORAL DAILY Qty = 30 Start taking the following new medications: Insulin Detemir (Levemir) 100 UNIT/ML VIAL 24 Units Inject into fatty tissue TWICE DAILY Days = 30 No Refills Insulin Aspart (Novolog) 100 UNIT/ML VIAL 0 Units Inject into fatty tissue AAC Days = 30 No Refills Instructions: BEFORE MEALS Blood Insulin Sugar Units <80 0 units 80-100 9 units 101-120 9 units 121-150 9 units 151-200 11 units 201-250 13 units 251-300 15 units 301-350 17 units 351-400 19 units >400mg/dl 20 units AT BEDTIME Blood Insulin Sugar Units <80 0 81-100 0 101-200 0 201-250 2 units 251-300 3 units 301-350 4 units 351-400 5 units >400 6 units and Call Doctor Ampicillin Sodium/Sulbactam Na (Unasyn 3 Gm Vial) 3 GRAM VIAL 3,000 Milligram INTRAVEN EVERY SIX HOURS Days = 25 No Refills Instructions: PLEASE ADMINSTER THESE ANTIBIOTICS THROUGH 06/05/16 Attending MD Review Statement Attending Statement Attending MD Statement: examined this patient
[2016-05-15 11:01] VITALS: BP 122/70
--- NOTE | 2016-05-15 12:13 | Cons- Psychiatry ---
Psychiatric Consult Date of Consult: 05/15/16 Reason for Consult: "Depression. Patient's family requesting psych consul for depression." History of Present Illness: 45-year-old male sent to the ED by Dr. Dowd for infection to right foot on 04/29/2016 at 1638. The patient denies prior personal psychiatric or family psychiatric history. The patient is going to [facility] for rehabilitation today, and expects to be there for 3 weeks while on IV antibiotics. The patient lives in a studio apartment with his girlfriend. He does not have any children. 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 The patient is stressed because his aunt and girlfriend are supporting him while he is in school. Allergies: Coded Allergies: cephalexin (From KEFLEX) (Intermediate, HIVES 04/29/16) adhesive (Mild, IRRITATION 04/29/16) Current Medications: Current Medications Sig/Angela Start time Last Medication Dose Route Stop Time Status Admin Acetaminophen 650 MG Q6-PRN PRN 04/29 2014 AC PO Amlodipine Besylate 5 MG DAILY 04/30 1000 AC 05/15 PO 0917 Ampicillin Sodium/ 3,000 MG Q6H 05/05 2000 AC 05/15 Sulbactam Sodium IV 0821 Sodium Chloride 100 ML Atorvastatin Calcium 20 MG DAILY 04/30 1000 AC 05/15 PO 0917 Heparin Sodium 5,000 UNIT Q8 05/08 1400 AC 05/15 (Porcine) SC 0618 Insulin Aspart 0 TIDAC/HS 05/08 1700 AC 05/15 SC 1218 Insulin Detemir 27 UNITS BID 05/14 1000 AC 05/15 SC 0917 Lisinopril 40 MG DAILY 05/07 1000 AC 05/15 PO 0916 Melatonin 5 MG AT BEDTIME 05/12 2200 AC 05/14 PO 2126 Morphine Sulfate 4 MG DAILY 05/15 1000 AC 05/15 IV 0800 Nystatin 1 DANIELLE TID PRN 05/12 0900 AC TOP Oxycodone HCl 5 MG Q4-PRN PRN 04/29 2030 AC 05/15 PO 0821 Patient Medication 1 ED .STK-MED ONE 05/14 1401 [facility] ED 05/14 1402 Polyethylene Glycol 17 GM DAILY 04/30 1145 AC 05/06 PO 1007 Past History Past Medical History Neurological: NONE EENT: NONE Cardiovascular: hypertension, hyperlipidemia Respiratory: NONE Gastrointestinal: C. difficile Hepatic: NONE Renal: NONE Musculoskeletal: NONE Psychiatric: NONE (Denies) Endocrine: diabetes, obesity Blood Disorders: NONE Cancer(s): NONE LIFE ENRICHMENT MANAGER/Reproductive: NONE Past Surgical History Surgical History: appendectomy, status post I&D of a posterior neck abscess L SHOULDER SX Assessment/Plan Mental Status Mental Status Exam: A+OX4. Depression 5/10, anxiety 0/10; 10 worst. Endorses helplessness and worthlessness; denies hopelessness. Denies SI/HI. Denies AVH; presents no maikol delusions. Reports 7 hours of sleep per night, using Unisom sometimes as a sleep aid. No significant prior trauma history. He knows that when he was 10 years old his aunt had a stroke, he found her and called 911. He reports minimal alcohol use, and denies any street drug use. Lab Results: 05/15/16 Sodium 136L. Other labs reviewed. Diffential Diagnosis: Depression NOS Impression: The patient is experiencing sadness and guilt 2/2 his ongoing hospitalization, as well as depressive feelings. He would benefit from talk therapy when he is finished with is IV antibiotic therapy at the [facility]. In the meantime, he is in agreement to try an SSRI, escitalopram, for depression. R/B/SE reviewed with him today. He will need to be followed at the [facility] for this, as the beginning dose is not likely to be therapeutic. Provisional Treatment Plan: 1. Please request a psychiatry consult at the receiving facility, for further evaluation of depression. 2. Please ask the receiving facility to call and request an intake appointment for the patient at [facility], when his discharge date is known. [phone]. 3. Consider starting escitalopram/Lexapro 5 mg PO daily, but only when serum sodium has returned to the normal range. a. I have ordered a followup EKG. Hold this medication if QTc greater than 475 mS. This medication can prolong QTc. b. Monitor sodium, as this medication can cause hyponatremia. Complete note to follow. Thank-you for asking us to participate in [facility]. Fabricio Banks, ASSISTANT WOMEN'S SOCCER COACH, Pager [phone]
--- NOTE | 2016-05-15 17:37 | PN- Diabetes ---
Assessment/Plan Assessment: 45-year-old Obese man with past medical history of poorly controlled diabetes type 2 with HbA1c of 12%, was admitted for diabetic right foot infection with cellulitis of right lower extremity and positive blood culture of gram positive cocci. He underwent multiple surgical procedures. Currently he is on Levemir 27 units twice a day. Novolog coverage before meals and Novolog coverage at bedtime. His FSGs were 180, 188, 178, 242 and 169. Patient will be discharged to rehab today. Plan: continue the current insulin regimen; monitor FSGs; f/u in office after discharge. Inpatient Diabetes Orders Before Each Meal: Bolus Insulin: co Subjective Subjective: He feels well today. Objective Last 24 Hrs of Vital Signs/I&O Vital Signs Date Time Temp Pulse Resp B/P Pulse O2 O2 Flow FiO2 Ox Delivery Rate 05/15 1101 98.0 80 20 122/70 05/15 0917 80 122/70 05/15 0916 80 122/70 05/15 0740 98.0 87 20 128/62 95 Room Air 05/14 2233 98.5 93 20 130/60 94 Intake & Output 05/15 1600 05/15 0800 05/15 0000 Intake Total 1100 590 630 Output Total 1000 825 530 Balance 100 -235 100 Intake, IV 200 150 150 Intake, Oral 900 440 480 Output, 175 30 Drainage Output, Urine 1000 650 500 Findings Pertinent Lab/Ramin Results: Laboratory Tests 05/15 0615 Chemistry Sodium (137 - 145 mmol/L) 136 L Potassium (3.5 - 5.1 mmol/L) 4.7 Chloride (98 - 107 mmol/L) 100 Carbon Dioxide (22 - 30 mmol/L) 29 Anion Gap (5 - 16) 8 BUN (9 - 20 mg/dL) 12 Creatinine (0.7 - 1.2 mg/dL) 0.5 L Estimated GFR (>60 ml/min) > 60 BUN/Creatinine Ratio (7 - 25 %) 24.0 Hematology CBC w Diff NO MAN DIFF REQ WBC (4.8 - 10.8 /CUMM) 10.9 H RBC (4.70 - 6.10 /CUMM) 3.76 L Hgb (14.0 - 18.0 G/DL) 11.3 L Hct (42 - 52 %) 34.1 L MCV (80.0 - 94.0 FL) 90.9 MCH (27.0 - 31.0 PG) 30.1 RDW (11.5 - 14.5 %) 13.9 Plt Count (130 - 400 /CUMM) 421 H MPV (7.4 - 10.4 FL) 8.1 Gran % (42.2 - 75.2 %) 72.1 Lymphocytes % (20.5 - 51.1 %) 16.3 L Monocytes % (1.7 - 9.3 %) 10.0 H Eosinophils % (0 - 5 %) 1.1 Basophils % (0.0 - 2.0 %) 0.5 Absolute Granulocytes (1.4 - 6.5 /CUMM) 7.9 H Absolute Lymphocytes (1.2 - 3.4 /CUMM) 1.8 Absolute Monocytes (0.10 - 0.60 /CUMM) 1.1 H Absolute Eosinophils (0.0 - 0.7 /CUMM) 0.1 Absolute Basophils (0.0 - 0.2 /CUMM) 0.1 PUBS MCHC (33.0 - 37.0 G/DL) 33.1 ESR Westergren (0 - 10 MM) 128 H
[2016-06-29] MEDS ORDERED: LISINOPRIL40 M1 PO (10:54)
[2016-06-29] MEDS ORDERED: DIFLUCAN PO (10:55)
[2016-06-29] MEDS ORDERED: JANUVIA100 M1 PO (10:56)
[2016-06-29] MEDS ORDERED: METFORMIN HCL500 M3 PO (10:56)
[2016-06-29] MEDS ORDERED: COLACE100 M1 PO (10:56)
[2016-06-29] MEDS ORDERED: OXYCODONE HCL5 M1 PO (10:57)
[2016-06-29] MEDS ORDERED: OXYCODONE HCL10 M2 PO (10:57)
[2016-06-29] MEDS ORDERED: NARCAN4 MG (10:58)
[2016-08-18] MEDS ORDERED: LEVEMIR FL100 UNIT/1 SC (16:50)
== END 2016-05-15 14:23 | DRG 710 ==
LOC: ENRESERVDT → ENRESERVTM → ERH 16:31 → ENPENDDIS 20:08 → 2NA 20:08 → PACUH 20:08 → 2NA 21:42
PROVIDERS: Internal Medicine; Internal Medicine Infectious Disease; Physician Assistant; Preventive Medicine Public Health & General Preventive Medicine; Student in an Organized Health Care Education/Training Program; ADMIT Podiatrist Foot & Ankle Surgery
PROC: 0Y6M0Z9 Detachment at Right Foot, Partial 1st Ray, Open Approach (ICD-10-PCS; principal; 2016-04-29)
PROC: 0JBQ0ZZ Excision of Right Foot Subcutaneous Tissue and Fascia, Open Approach (ICD-10-PCS; principal; 2016-04-29)
PROC: 0J9Q00Z Drainage of Right Foot Subcutaneous Tissue and Fascia with Drainage Device, Open Approach (ICD-10-PCS; principal; 2016-04-29)
PROC: 0J9Q00Z Drainage of Right Foot Subcutaneous Tissue and Fascia with Drainage Device, Open Approach (ICD-10-PCS; 2016-05-01)
PROC: 2W1SX6Z Compression of Right Foot using Pressure Dressing (ICD-10-PCS; 2016-05-01)
PROC: 0Y6M0Z9 Detachment at Right Foot, Partial 1st Ray, Open Approach (ICD-10-PCS; 2016-05-01)
PROC: 0JBQ0ZZ Excision of Right Foot Subcutaneous Tissue and Fascia, Open Approach (ICD-10-PCS; 2016-05-01)
PROC: 0J9N0ZZ Drainage of Right Lower Leg Subcutaneous Tissue and Fascia, Open Approach (ICD-10-PCS; 2016-05-05)
PROC: 0Y6M0Z9 Detachment at Right Foot, Partial 1st Ray, Open Approach (ICD-10-PCS; 2016-05-05)
PROC: 0JBQ0ZZ Excision of Right Foot Subcutaneous Tissue and Fascia, Open Approach (ICD-10-PCS; 2016-05-05)
PROC: 0J9Q00Z Drainage of Right Foot Subcutaneous Tissue and Fascia with Drainage Device, Open Approach (ICD-10-PCS; 2016-05-08)
PROC: 0JBQ0ZZ Excision of Right Foot Subcutaneous Tissue and Fascia, Open Approach (ICD-10-PCS; 2016-05-08)
PROC: 0Y6P0Z2 Detachment at Right 1st Toe, Mid, Open Approach (ICD-10-PCS; 2016-05-08)
DX: A41.9 Sepsis, unspecified organism (principal); N17.0 Acute kidney failure with tubular necrosis; A48.0 Gas gangrene; E11.40 Type 2 diabetes mellitus with diabetic neuropathy, unspecified; M86.171 Other acute osteomyelitis, right ankle and foot; E66.01 Morbid (severe) obesity due to excess calories; E87.1 Hypo-osmolality and hyponatremia; Z79.4 Long term (current) use of insulin; Z68.39 Body mass index [BMI] 39.0-39.9, adult; L02.611 Cutaneous abscess of right foot
CPT/HCPCS: 2NASP; 84133; 84300; 86160; 87070; 87075; 36415; 73630-RT; 76775; 82436; 82570; 84165; 87040; 87086; 87147; 88304; 88305; 88307; 93005; 93010; 93306; 97110-GO; 97116-GO; 97162-GP; 97530-GO; 99232; C1769; J0131; J0690; J1644; J1650; J1815; J2001; J2250; J2270; J3010; J3370; J3490; J7040; J7042; Q2036

== ENCOUNTER → 2016-06-30 | Day surgery (SDC) | payer OTHER ==
--- NOTE | 2016-06-28 12:00 | History & Physical Pre-Op ---
General Information and HPI History of Present Illness: Sg is a 45-year-old poorly controlled diabetic, status post I&D and negative pressure wound therapy to his right foot and right ankle. The patient has completed an outpatient course of IV antibiotics for right first metatarsal osteomyelitis. The patient now has a wound bed to his right foot that is optimized for split-thickness skin grafting. Patient also requires revision and Integra grafting to his right ankle wound. Allergies/Medications Allergies: Coded Allergies: cephalexin (From KEFLEX) (Intermediate, HIVES 04/29/16) adhesive (Mild, IRRITATION 04/29/16) Home Med list Amlodipine (Norvasc 5MG Tab) 5 MG TAB 5 MG PO DAILY HTN Ampicillin Sodium/Sulbactam Na (Unasyn 3 Gm Vial) 3 GRAM VIAL 3,000 MG IV Q6 OSTEOMYELITIS PLEASE ADMINSTER THESE ANTIBIOTICS THROUGH 06/05/16 Aspirin (Aspirin*) 81 MG TAB.CHEW 1 TAB PO DAILY heart (Reported) Insulin Aspart (Novolog) 100 UNIT/ML VIAL 0 UNITS SC ADD ADMIN CRITERIA DIABETES BEFORE MEALS Blood Insulin Sugar Units <80 0 units 80-100 9 units 101-120 9 units 121-150 9 units 151-200 11 units 201-250 13 units 251-300 15 units 301-350 17 units 351-400 19 units >400mg/dl 20 units AT BEDTIME Blood Insulin Sugar Units <80 0 81-100 0 101-200 0 201-250 2 units 251-300 3 units 301-350 4 units 351-400 5 units >400 6 units and Call Doctor Insulin Detemir (Levemir) 100 UNIT/ML VIAL 24 UNITS SC BID DIABETES MELLITUS Lisinopril (Prinivil) 10 MG TAB 40 MG PO DAILY HTN Lovastatin 20 MG TABLET 1 TAB PO DAILY cholesterol (Reported) Past History Medical History Neurological: NONE EENT: NONE Cardiovascular: hypertension, hyperlipidemia Respiratory: NONE Gastrointestinal: C. difficile Hepatic: NONE Renal: NONE Musculoskeletal: NONE Psychiatric: NONE (Denies) Endocrine: diabetes, obesity Blood Disorders: NONE Cancer(s): NONE MEDICAID COLLECTION SPECIALIST/Reproductive: NONE History of MRSA: No History of VRE: No History of CDIFF: No Surgical History Pertinent Surgical History: appendectomy, status post I&D of a posterior neck abscess L SHOULDER SX Past Family/Social History Family History Relations & Conditions if any FATHER (coronary artery disease-status post angioplasty and stents). MOTHER (diverticulitis). BROTHER (diabetes). Relation not specified for: FH: diabetes mellitus Psychosocial History Services at Home None Functional Ability ADLs Independent: dressing, eating, toileting, bathing. Review of Systems Review of Systems: Unremarkable except for that noted in history of present illness Exam & Diagnostic Data Physical Exam: 6 cm x 3 cm Llanos grade 2 ulceration noted to the distal medial right foot. There is superficial slough overlying an otherwise granular wound bed. No probing or undermining identified. Minimal serous drainage noted. Proximally, at the level of the ankle there is a 14 x 8 cm Llanos grade 3 ulceration identified. There is necrosis noted at the wound margins and at the medial aspect of the Achilles tendon. No probing or undermining identified. Moderate amount of serous drainage identified. Mixed granular fibrotic wound bed. Assessment/Plan Assessment/Plan: Nonhealing ulcers right foot and ankle. A lengthy discussion reviewing both surgical and conservative options was held the patient at bedside and the patient elects to go forward surgery despite the risks. As Ranked By This Provider Problem List: 1. Non-pressure chronic ulcer of other part of right foot with fat layer exposed
[~2016-06-30] MED LIST changes: +ACIDOPHILUS1 EACH PO; +AMLODIPINE BESYL5 M1 PO; +ASPIRIN EC81 M1 PO; +ASPIRIN81 M4 PO; +BENZONATATE100 M1 PO; +COLACE100 M1 PO; +DIFLUCAN PO; +DOCUSATE SODIU100 M3 PO; +DULCOLAX10 M1 RC; +FLEET ENEMA133 ML RC; +GABAPENTIN100 M2 PO; +GLUCAGON EMERGEN1 M1 IM; +JANUVIA100 M1 PO; +LEVEMIR FL100 UNIT/1 SC; +LEVEMIR100 UNIT/1 SC; +LEXAPRO10 M1 PO; +LEXAPRO5 M1 PO; +LISINOPRIL40 M1 PO; +LOVASTATIN20 M1 PO; +MELATONIN3 M4 PO; +MELATONIN5 M7 PO; +METFORMIN HCL500 M3 PO; +MILK OF MA400 MG/52 PO; +MIRALAX119 GM PO; +NARCAN4 MG; +NARCAN4 MG NAS; +NOVOLOG100 UNIT/2 SC; +OXYCODONE HCL10 M2 PO; +OXYCODONE HCL5 M1 PO; +PERCOCET 5-3251 EACH PO; +SENNA PLUS TAB1 EACH PO; +SENNA8.6 M3 PO; +SIMETHICONE80 M1 PO; +SLOW FE142 MG PO; +TYLENOL325 M1 PO; +UNASYN 3 GM VIAL3 GM IV
--- NOTE | 2016-06-30 08:59 | Operative Report ---
Operative/Inv Procedure Report Surgery Date: 06/30/16 Name of Procedure: 1 open incision and drainage deep to the deep fascia with exposure of the flexor tendon and tendon sheath multiple sites right ankle 2 split-thickness skin graft right foot 3 intraoperative administration of negative pressure wound therapy 4 intraoperative application of Integra allograft right ankle 5 excisional debridement Pre-Operative Diagnosis: 1 open necrotic wound right ankle 2 nonhealing ulcer right foot 3 diabetic peripheral neuropathy Post-Operative Diagnosis: The same Estimated Blood Loss: less than 50ml Surgeon/Assembler Surgical Garment: TERRY MALAGON DPM Anesthesia: moderate sedation, block Operative/Procedure Note Note: After obtaining informed consent the patient was brought to the operating room and placed on the operating table in the supine position. The patient was then securely fastened to the operating table utilizing safety belt. After administration of IV sedation, 10 mL of 0.5% Marcaine plain was infiltrated about the patient's right ankle. The right lower extremity was scrubbed prepped and draped in usual aseptic manner., Where a large full-thickness necrotic was identified. A 15 blade was utilized sharply revised skin margins. The dissection was then carried down deep to the D fashion with exposure of the flexor tendon and tendon sheath multiple sites, both proximally and distally. All necrotic nonviable and infected tissue sharply evacuated from the wound bed. The open wound was then irrigated with 3 L of normal sterile saline infused with 50,000 units of bacitracin. Following this the foot was redraped and the surgeon's top gloves were exchanged for clean gloves. Integra allograft was then placed over the right ankle wound. It was fixated at its margins with skin tamiko. Next, attention directed the right foot, where a 6 cm x 4 cm Llanos grade 2 ulceration was identified. The wound bed was noted to be uniformly granulated. There is no probing or undermining identified. This wound bed was gently curetted and then irrigated with 3 L of normal sterile saline fissure 50, 000 units of bacitracin. Following this, a 17 1007 inch split-thickness skin graft was elevated from the lateral leg and meshed at a ratio of 1/2-1. It was then fixated to the recipient site at its margins with skin tamiko followed by the application of Adaptic and negative pressure wound therapy. The donor site was dressed with bacitracin and Xeroform. Negative pressure wound therapy was then placed over the Integra graft. The foot was dressed with Kerlix and an Naldo wrap. The patient was noted tolerate both procedure and anesthesia well and the patient was transported from the operating room to recovery with vital signs stable.
== END ==
LOC: STS 02:07
DX: E11.621 Type 2 diabetes mellitus with foot ulcer (principal); L97.312 Non-pressure chronic ulcer of right ankle with fat layer exposed; L97.512 Non-pressure chronic ulcer of other part of right foot with fat layer exposed; E11.65 Type 2 diabetes mellitus with hyperglycemia; Z79.4 Long term (current) use of insulin; E78.5 Hyperlipidemia, unspecified; I10 Essential (primary) hypertension
CPT/HCPCS: 88304; C9363; J1885; J2001; J2250

== ENCOUNTER 2016-07-13 12:56 | Inpatient (IN) | payer OTHER ==
[~2016-07-13] VITALS: Ht 190.5 cm; Wt 126.6 kg
[~2016-07-13 12:56] MED LIST changes: -ACIDOPHILUS1 EACH PO; -AMLODIPINE BESYL5 M1 PO; -ASPIRIN EC81 M1 PO; -BENZONATATE100 M1 PO; -DOCUSATE SODIU100 M3 PO; -DULCOLAX10 M1 RC; -FLEET ENEMA133 ML RC; -GABAPENTIN100 M2 PO; -GLUCAGON EMERGEN1 M1 IM; -LEXAPRO10 M1 PO; -LEXAPRO5 M1 PO; -MELATONIN3 M4 PO; -MELATONIN5 M7 PO; -MILK OF MA400 MG/52 PO; -MIRALAX119 GM PO; -NARCAN4 MG NAS; -PERCOCET 5-3251 EACH PO; -SENNA PLUS TAB1 EACH PO; -SENNA8.6 M3 PO; -SIMETHICONE80 M1 PO; -SLOW FE142 MG PO; -TYLENOL325 M1 PO
--- NOTE | 2016-07-13 12:59 | ED SYNCOPE COMPLAINT ---
History of Present Illness General Chief Complaint: Syncope and Near-Syncope Stated Complaint: RAPID RESPONSE NEAR SYNCOPE Source: patient, RESPONSE TEAM Exam Limitations: no limitations Vital Signs & Intake/Output Vital Signs & Intake/Output Vital Signs Date Time Temp Pulse Resp B/P B/P Pulse O2 O2 Flow FiO2 Mean Ox Delivery Rate 07/13 1950 98.5 88 18 134/75 98 Room Air Room Air 07/13 1546 98.6 74 18 146/74 100 Room Air 07/13 1410 91 20 106/56 96 Room Air 07/13 1330 98 Room Air 07/13 1303 86 20 96/55 97 Room Air Allergies Coded Allergies: cephalexin (From KEFLEX) (Intermediate, HIVES 04/29/16) adhesive (Mild, IRRITATION 04/29/16) Reconcile Medications Amlodipine Besylate 5 MG TABLET 1 TAB PO DAILY HTN (Reported) Insulin Detemir (Levemir Flextouch) 100 UNIT/ML (3 ML) INSULN.PEN 20 U SC BID DIABETES (Reported) Lisinopril 40 MG TABLET 1 TAB PO DAILY HTN (Reported) Lovastatin 20 MG TABLET 1 TAB PO DAILY cholesterol (Reported) Metformin HCl 500 MG TABLET 1 TAB PO BID DM II (Reported) Sitagliptin Phosphate (Januvia) 100 MG TABLET 1 TAB PO DAILY DM II (Reported) Triage Nurses Notes Reviewed? yes Timing: single episode today Precipitating Factors: PASSED OUT DURING DRESSING CHANGE Episode Description: SEE HPI Loss of Consciousness: brief (seconds) Associated Symptoms: LIGHTHEADED, DIAPHORETIC HPI: This is a 45-year-old male with history of hypertension, diabetes insulin- dependent, also myelitis status post recent flap presents with a rapid response team from the wound care center. He was there being evaluated by Riya and Dr. Malagon on the right about to do a dressing change. He states that he became very lightheaded and very dizzy. He then passed out. Patient was found to be hypotensive and diaphoretic. Finger stick was within normal limits. He states earlier in the day while at [facility] he felt a little bit lightheaded during upper arm extremity exercises. They discontinued into the back to his room. At that time his blood pressure was 100/70 which he thought was a little low. He made sure that he took a pain medication and 8 for coming into the wound care for evaluation. Currently he feels little bit better lying down. He states he started sweating anymore. While the event was happening he felt lightheaded and felt like it a hard time forming words. At this time he has none of those symptoms. Denies any recent fevers but he said he has had them on and off while at [facility] for rehabilitation. Dr. Malagon was going to start him on an antibiotic for an elevated white blood cell count that was drawn at the [facility] today. Past History Medical History Any Pertinent Medical History? see below for history Neurological: NONE EENT: NONE Cardiovascular: hypertension, hyperlipidemia Respiratory: NONE Gastrointestinal: C. 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 MOTHER (diverticulitis). BROTHER (diabetes). Relation not specified for: FH: diabetes mellitus Hx Contributory? No Review of Systems Review of Systems Constitutional: Reports: diaphoresis, fever. Denies: chills. EENTM: Denies: blurred vision, double vision. Respiratory: Denies: cough, short of breath. Cardiovascular: Denies: chest pain, palpitations. GI: Denies: abdominal pain, bloating. Genitourinary: Reports: no symptoms. Musculoskeletal: Reports: joint pain. Denies: back pain. Skin: Reports: no symptoms. Neurological/Psychological: Reports: see HPI (DIZZY, LIGHTHEADED). All Other Systems: Reviewed and Negative Physical Exam Physical Exam General Appearance: well developed/nourished, alert, awake, anxious, mild distress, moderate distress, obese Head: atraumatic Eyes: Bilateral: normal appearance, PERRL, EOMI. Ears, Nose, Throat: normal pharynx, hearing grossly normal Neck: normal inspection, supple, full range of motion Respiratory: normal breath sounds, chest non-tender, no respiratory distress Cardiovascular: regular rate/rhythm Gastrointestinal: normal bowel sounds, soft, non-tender Back: normal inspection, normal range of motion Extremities: normal inspection, normal capillary refill, normal range of motion, no edema, RIGHT FOOT FIRST DIGIT AMPUTATION, DRESSING IN PLACE, TENDER OVER LATERAL ANKLE Psychiatric: awake, alert, oriented x 3 Cranial Nerves: normal hearing, normal speech, PERRL Motor/Sensory: no motor/sensory deficits Core Measures ACS in differential dx? Yes ASA ordered for poss ACS? No-ACS ruled out CVA/TIA Diagnosis: No Severe Sepsis Present: No Septic Shock Present: No ED Sepsis Exam Date of Focused Sepsis Exam: 07/13/16 Time of Focused Sepsis Exam: 1630 Sepsis Cardiac Exam: Regular Rate/Rhythm Sepsis Resp Exam: CTA Sepsis Cap Refill Exam: <2 Sec Sepsis Peripheral Pulse Exam: Weak Sepsis Peripheral Pulse Location: Radial Sepsis Skin Color Exam: Pale Skin Temp/Moisture Exam: Cool/Diaphoretic Progress Differential Diagnosis: OSTEOMYELITIS, CELLULITIS, ABSCESS, SEPSIS, DEHYDRATION, VASOVAGAL EPISODE, CARDIAC ARRHYTHMIA Plan of Care: Orders Procedure Date/time Status Consistent Carbohydrate 2 07/14 D Active PHOSPHORUS 07/14 0600 Active MAGNESIUM 07/14 0600 Active CBC WITHOUT DIFFERENTIAL 07/14 0600 Active BASIC ELECTROLYTES PLUS BUN&CR 07/14 0600 Active TROPONIN LEVEL 07/14 0400 Active EKG 07/14 0400 Active Nothing by Mouth 07/13 D Active TROPONIN LEVEL 07/13 2200 Active LACTIC ACID 07/13 2200 Active EKG 07/13 2200 Active Pathway - chart 07/13 1920 Active Code Status 07/13 1913 Active Saline Lock 07/13 1726 Active Pathway - chart 07/13 1726 Active Patient Data 07/13 1726 Active CULTURE,URINE 07/13 1726 Active LACTIC ACID 07/13 1615 Complete Patient Data 07/13 1551 Active Admit to inpatient 07/13 1542 Active Vital Signs 07/13 1542 Active Code Status 07/13 1542 Complete URINALYSIS 07/13 1535 Active Intake & Output 07/13 1403 Active MISTAKE 07/13 1315 Active Telemetry/Acute Care Physician 07/13 1315 Active BLOOD CULTURE 07/13 1315 Active TROPONIN LEVEL 07/13 1315 Complete LACTIC ACID 07/13 1315 Complete COMPREHENSIVE METABOLIC PANEL 07/13 1315 Complete CBC WITHOUT DIFFERENTIAL 07/13 1315 Complete EKG 07/13 1315 Active FingerStick- Glucose 07/13 1300 Active House Staff 07/13 UNK Active VTE Mechanical Prophylaxis 07/13 UNK Active Vital Signs 07/13 UNK Active MISTAKE 07/13 UNK Active Telemetry/Acute Care Physician 07/13 UNK Active Intake & Output 07/13 UNK Active FingerStick- Glucose 07/13 UNK Active Current Medications Sig/Angela Start time Last Medication Dose Stop Time Status Admin Acetaminophen 650 MG Q6P PRN 07/13 1930 AC (Tylenol) Oxycodone HCl 5 MG Q6H 07/13 193 AC 07/13 (Roxicodone) 2007 Oxycodone/ 2 TAB Q6P PRN 07/13 193 AC Acetaminophen (Percocet) Ampicillin Sodium/ 3,000 MG Q6 07/13 1849 AC 07/13 Sulbactam Sodium 2007 (Unasyn) Sodium Chloride 100 ML (Normal Saline 0.9%) Atorvastatin Calcium 20 MG 1700 07/13 1733 AC 07/13 (Lipitor) 2007 Enoxaparin Sodium 40 MG DAILY 07/13 172 AC 07/13 (Lovenox) 2007 Laboratory Tests 07/13/16 2208: Troponin I Pending 07/13/16 2208: Lactic Acid Pending 07/13/16 1732: Lactic Acid 2.6 H 07/13/16 1354: Anion Gap 13, Estimated GFR > 60, BUN/Creatinine Ratio 20.0, Glucose 212 H, Lactic Acid 2.7 H, Calcium 9.5, Total Bilirubin 0.9, AST 14 L, ALT 29, Alkaline Phosphatase 48, Troponin I < 0.01, Total Protein 7.7, Albumin 3.6, Globulin 4.1, Albumin/Globulin Ratio 0.9 L, CBC w Diff MAN DIFF ORDERED, RBC 4.33 L, MCV 86.1, MCH 29.7, RDW 14.6 H, MPV 8.0, Gran % 80.2 H, Lymphocytes % 10.1 L, Monocytes % 7.3, Eosinophils % 2.0, Basophils % 0.4, Absolute Granulocytes 15.6 H, Segmented Neutrophils 82 H, Band Neutrophils 3, Absolute Lymphocytes 2.0, Lymphocytes 10 L, Monocytes 5, Absolute Monocytes 1.4 H, Absolute Eosinophils 0.4, Absolute Basophils 0.1, Platelet Estimate ADEQUATE, Normocytic RBCs VERIFIED, Normochromic RBCs VERIFIED, PUBS MCHC 34.5 Microbiology 07/13 172 URINE ROUT: Urine Culture - COLB 07/13 1400 BLOOD: Blood Culture - RECD 07/13 1354 BLOOD: Blood Culture - RECD EKG, TELE MONITOR, LABS ORDERED. WOUND CARE NURSE PAGED. 3:10PM DR MALAGON PAGED. D/W DR MALAGON. MRI ANKLE ORDERED. ABX ON HOLD PER DR MALAGON UNTIL U/S RESULTS. DISCUSSED WITH HOSPITALIST FOR ADMISSION. (RUBÉN PERKINS,DENNIS) Diagnostic Imaging: Viewed by Me: MRI. Discussed w/RAD: MRI. Comments: PATIENT: ALF JUAERZ PRESENT AGE: 45 PATIENT ACCOUNT NO: [id number] : 68 LOCATION: [facility] ORDERING PHYSICIAN: DENNIS MONTANA MD SERVICE DATE: 07/13/16 EXAM TYPE: MRI - MRI-RT ANKLE W/O JUANCHO EXAMINATION: MR ANKLE WITHOUT CONTRAST, RIGHT CLINICAL INFORMATION: Right ankle pain/infection. Evaluate for abscess, osteomyelitis. COMPARISON: Multiple prior right foot radiographs, most recent dated 06/15/2016. TECHNIQUE: Multiplanar MR imaging was performed through the right ankle on a high-field scanner without intravenous contrast. FINDINGS: BONE: There is diffuse abnormal low T1/high T2 marrow signal throughout the talus as well as throughout the superior and anterior aspect of the calcaneus. Mild abnormal marrow signal is seen within the navicula as well as the proximal aspect of the cuboid. There are lobulated areas of abnormal fluid signal throughout the adjacent soft tissues with extensive soft tissue edema. These findings are consistent with acute osteomyelitis and associated cellulitis. MUSCLES/TENDONS: Diffuse edema is seen within the posterior tendon sheaths as well as throughout the plantar musculature, consistent with associated infection/inflammation. There is abnormal signal of the distal Achilles tendon, consistent with tendinosis. The visualized tendons are otherwise grossly intact. SOFT TISSUES: There is diffuse circumferential subcutaneous edema, most prominent on the posteromedial aspect of the ankle where there is a cutaneous abnormality which could represent an ulcer. These findings are consistent with cellulitis. IMPRESSION: 1. Acute osteomyelitis involving talus and calcaneus as well as possibly the navicula and cuboid. Extensive adjacent soft tissue edema and inflammatory change, consistent with cellulitis. 2. Probable cutaneous ulcer over the posteromedial aspect of the ankle. 3. Diffuse abnormal signal throughout the tendon sheaths and plantar musculature consistent with associated infectious/inflammatory change. DICTATED BY: JOSSELYN WATSON MD DATE/TIME DICTATED:07/13/161721 PEDIATRIC ANESTHESIOLOGIST:NOY DATE/TIME TRANSCRIBED:07/13/161721 CONFIDENTIAL, DO NOT COPY WITHOUT APPROPRIATE AUTHORIZATION. <Electronically signed in Other Vendor System> SIGNED BY: JOSSELYN WATSON MD [id number] Departure Departure Time of Disposition: 1629 Disposition: STILL A PATIENT Condition: Stable Clinical Impression Primary Impression: Osteomyelitis Referrals: SANDIE NEELY MD (PCP/Family) Departure Forms: Customer Survey General Discharge Information Admission Note Spoke With: JENNA ROCA MD Documentation of Exam: Documentation of any treatments & extenuating circumstances including Concerns Regarding Discharge (functional status, medication knowledge or non-compliance, living conditions, etc.) that warrant an admission rather than observation: [MRI ANKLE, VESNA CONSULT, FLUID RESUSSCITATION, F/U CULTURE RESULTS]
--- NOTE | 2016-07-13 13:00 | NUR ---
PT BIBA FROM [facility] FOR SYNCOPE. PT WAS ABOUT TO HAVE DRESSING CHANGED TO RIGHT FOOT WHEN HE FELT LIGHTHEADED, DIZZY AND PASSED OUT. PT WAS FOUND TO BE HYPOTENSIVE PER RAPID RESPONSE TEAM. PT ARRIVES TO ED VIA STRETHCER. PALE, DIAPHORETIC. FINGERSTICK 219. A/OX3. CHANGED INTO GOWN, PLACED ON MONITOR. AWAITING PROVIDER EVAL.
--- NOTE | 2016-07-13 13:15 | NUR ---
DR MONTANA IN FOR NAKULAL
[2016-07-13 14:06] LABS: ABSOLUTE BASOPHIL COUNT 0.1 /CUMM (0.0-0.2); ABSOLUTE EOSINOPHIL COUNT 0.4 /CUMM (0.0-0.7); ABSOLUTE GRANULOCYTE CT 15.6 /CUMM (1.4-6.5); ABSOLUTE MONOCYTE COUNT 1.4 /CUMM (0.10-0.60); BASOPHIL % 0.4 % (0.0-2.0); GRANULOCYTE % 80.2 % (42.2-75.2); HEMATOCRIT 37.3 % (42-52); MEAN CORPUSCULAR HGB 29.7 PG (27.0-31.0); MEAN CORPUSCULAR HGB CONC 34.5 G/DL (33.0-37.0); MEAN CORPUSCULAR VOLUME 86.1 FL (80.0-94.0); PLATELET COUNT 378 /CUMM (130-400); RBC DISTRIBUTION WIDTH 14.6 % (11.5-14.5); RED BLOOD CELL CT 4.33 /CUMM (4.70-6.10); WHITE BLOOD CELL COUNT 19.4 /CUMM (4.8-10.8)
[2016-07-13] MEDS ORDERED: LEVEMIR FL100 UNIT/1 SC (14:25)
[2016-07-13] MEDS ORDERED: AMLODIPINE BESYL5 M1 PO (14:26)
--- NOTE | 2016-07-13 14:46 | NUR ---
CRITICAL TEST RESULTS [id number] ALF JUAREZ 45 M TESTS AND RESULTS: LACTIC ACID 2.7 Results received and read back by: CALEB OSORIO Results received date and time: 07/13/16 1446 The following provider was notified of the results, and read the results back: DR MONTANA Notified date and time: 07/13/16 at 1446
--- NOTE | 2016-07-13 15:34 | NUR ---
ASSUMED CARE OF PT, PT STATING HE IS CURRENTLY FEELING MUCH BETTER, LYING FLAT ON STRETCHER, 2ND LITER OF NS INFUSING. WILL CTM.
--- NOTE | 2016-07-13 15:45 | NUR ---
PT TO MRI AT THIS TIME, BP IMPROVED. PT TAKING CELL PHONE TO MRI WITH HIM PER REQUEST
--- NOTE | 2016-07-13 16:22 | History & Physical ---
MARTHA HOUSE 07/13/16 1622: General Information and HPI Allergies/Medications Allergies: Coded Allergies: cephalexin (From KEFLEX) (Intermediate, HIVES 04/29/16) adhesive (Mild, IRRITATION 04/29/16) Home Med list Amlodipine Besylate 5 MG TABLET 1 TAB PO DAILY HTN (Reported) Insulin Detemir (Levemir Flextouch) 100 UNIT/ML (3 ML) INSULN.PEN 20 U SC BID DIABETES (Reported) Lisinopril 40 MG TABLET 1 TAB PO DAILY HTN (Reported) Lovastatin 20 MG TABLET 1 TAB PO DAILY cholesterol (Reported) Metformin HCl 500 MG TABLET 1 TAB PO BID DM II (Reported) Sitagliptin Phosphate (Januvia) 100 MG TABLET 1 TAB PO DAILY DM II (Reported) Past History Travel History Traveled to [place] past 21 day No Medical History Neurological: NONE EENT: NONE Cardiovascular: hypertension, hyperlipidemia Respiratory: NONE Gastrointestinal: C. 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 MOTHER (diverticulitis). BROTHER (diabetes). Relation not specified for: FH: diabetes mellitus Psychosocial History Services at Home: None ETOH Use: denies use Illicit Drug Use: denies illicit drug use Functional Ability ADLs Independent: dressing, eating, toileting, bathing.
--- NOTE | 2016-07-13 16:34 | History & Physical ---
CONTRERAS PERKINS,EDY 07/13/16 4928: General Information and HPI MD Statement: I have seen and personally examined ALF JUAREZ and documented this H&P. The patient is a 45 year old M who presented with a patient stated chief complaint of [syncope]. Source of Information: patient, family, old records Exam Limitations: no limitations Allergies/Medications Allergies: Coded Allergies: cephalexin (From KEFLEX) (Intermediate, HIVES 04/29/16) adhesive (Mild, IRRITATION 04/29/16) Home Med list Amlodipine Besylate 5 MG TABLET 1 TAB PO DAILY HTN (Reported) Insulin Detemir (Levemir Flextouch) 100 UNIT/ML (3 ML) INSULN.PEN 20 U SC BID DIABETES (Reported) Lisinopril 40 MG TABLET 1 TAB PO DAILY HTN (Reported) Lovastatin 20 MG TABLET 1 TAB PO DAILY cholesterol (Reported) Metformin HCl 500 MG TABLET 1 TAB PO BID DM II (Reported) Sitagliptin Phosphate (Januvia) 100 MG TABLET 1 TAB PO DAILY DM II (Reported) Past History Travel History Traveled to [place] past 21 day No Medical History Neurological: NONE EENT: NONE Cardiovascular: hypertension, hyperlipidemia Respiratory: NONE Gastrointestinal: C. 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 MOTHER (diverticulitis). BROTHER (diabetes). Relation not specified for: FH: diabetes mellitus Psychosocial History Services at Home: None ETOH Use: denies use Illicit Drug Use: denies illicit drug use Functional Ability ADLs Independent: dressing, eating, toileting, bathing.
--- NOTE | 2016-07-13 17:22 | NUR ---
PT CARE ASSUMED BY THIS RN AT THIS TIME. PT TO ROOM 16 VIA STRETCHER, REQUESTING FOOD TRAY, PT EDUCATED ON NPO STATUS, VERBALIZES UNDERSTANDING.
--- NOTE | 2016-07-13 17:34 | History & Physical ---
CHELSEA HOOKS 07/13/16 1734: General Information and HPI Source of Information: patient Exam Limitations: no limitations History of Present Illness: Mr Juarez is a 45 yr old man who was in his usual state of health until a few months ago. He has a PMH of hypertension, uncontrolled type 2 diabetes, first metatarsal osteomyelitis. He was brought to the ED w/ a chief concern of lightheadedness, dizziness x 1 day. As per the pt, the pt had long standing ulceration of plantar aspect of right foot, first metatarsal osteomyelitis ( Tx w/ Unasyn 05/15-06/05) s/p skin graft , ulcer near the achilis tendon ( s/p debridement ). On the day of admission, reported to have had ligheadedness when he was working with the physical therapy at [facility](acute rehab) which resolved upon rest. 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 Rapid response was called, and was found to be hypotensive. No fever, no lower extremity pain was reported. No loss of conscioussness/ vision changes, or loss of bladder/bowel function. No seizures, or neurologic weakness was reported. No chest pain, palpitations, no vomiting, no abdominal discomfort, vomigint/ diarrhea was reported. No report of any increase in po opiates or other drugs. No change in po intake. Sees Dr. Pappas regularly. Allergies/Medications Allergies: Coded Allergies: cephalexin (From KEFLEX) (Intermediate, HIVES 04/29/16) adhesive (Mild, IRRITATION 04/29/16) Home Med list Amlodipine Besylate 5 MG TABLET 1 TAB PO DAILY HTN (Reported) Insulin Detemir (Levemir Flextouch) 100 UNIT/ML (3 ML) INSULN.PEN 20 U SC BID DIABETES (Reported) Lisinopril 40 MG TABLET 1 TAB PO DAILY HTN (Reported) Lovastatin 20 MG TABLET 1 TAB PO DAILY cholesterol (Reported) Metformin HCl 500 MG TABLET 1 TAB PO BID DM II (Reported) Sitagliptin Phosphate (Januvia) 100 MG TABLET 1 TAB PO DAILY DM II (Reported) Compliance With Home Meds: UNKNOWN Past History Travel History Traveled to [place] past 21 day No Medical History Neurological: NONE EENT: NONE Cardiovascular: hypertension, hyperlipidemia Respiratory: NONE Gastrointestinal: C. difficile Hepatic: NONE Renal: NONE Musculoskeletal: NONE Psychiatric: NONE (Denies) Endocrine: diabetes, obesity Blood Disorders: NONE Cancer(s): NONE SPARE HAND/Reproductive: NONE History of MRSA: No History of VRE: No History of CDIFF: No Surgical History Surgical History: appendectomy, status post I&D of a posterior neck abscess L SHOULDER SX Past Family/Social History Family History Relations & Conditions if any FATHER (coronary artery disease-status post angioplasty and stents). MOTHER (diverticulitis). BROTHER (diabetes). Relation not specified for: FH: diabetes mellitus Psychosocial History Services at Home: None ETOH Use: denies use Illicit Drug Use: denies illicit drug use Functional Ability ADLs Independent: dressing, eating, toileting, bathing. Review of Systems Review of Systems Constitutional: Reports: see HPI. Denies: chills, fever, malaise. EENTM: Denies: visual changes. Cardiovascular: Denies: chest pain, edema, palpitations, peripheral edema. Respiratory: Denies: cough, short of breath. GI: Denies: abdominal pain, melena. Genitourinary: Denies: dysuria. Musculoskeletal: Denies: back pain. Skin: Reports: change in skin color, lesions. Neurological/Psychological: Denies: anxiety. Hematologic/Endocrine: Denies: bleeding. Exam & Diagnostic Data Last 24 Hrs of Vital Signs/I&O Vital Signs Date Time Temp Pulse Resp B/P B/P Pulse O2 O2 Flow FiO2 Mean Ox Delivery Rate 07/13 1546 98.6 74 18 146/74 100 Room Air 07/13 1410 91 20 106/56 96 Room Air 08 1330 98 Room Air 08 1303 86 20 96/55 97 Room Air Intake & Output 07/13 1600 05/08 0800 05/08 0000 Intake Total 1000 Output Total Balance 1000 Intake, IV 1000 Patient 279 lb Weight Physical Exam General Appearance Alert, Oriented X3, Cooperative, No Acute Distress Skin ulcer w/ purulent discharge on the posterior-medial aspect of left foot 10 cm x 5 cm x 15 cm. ulcer on first metatarsal 5cm x 5cm. Skin Temp/Moisture Exam: Warm/Dry Sepsis Skin Exam (color): Flushed HEENT Atraumatic, PERRLA, EOMI, mucous membranes dry Neck Supple, No JVD, No thryomegaly, +2 Carotid Pulse wo Bruit Lymphatic Axillary nl, Cervical nl Cardiovascular Regular Rate, Normal S1, Normal S2, No Murmurs, Gallops Lungs Clear to Auscultation, Normal Air Movement Abdomen Normal Bowel Sounds, Soft, No Tenderness, No Hepatospenomegaly Neurological Normal Speech, Strength at 5/5 X4 Ext, Normal Tone, Sensation Intact, Cranial Nerves 3-12 NL, Reflexes 2+ Extremities No Clubbing, No Cyanosis, Normal Pulses, erythema, swelling around ulcer at left plantar surface extending upto knee. Vascular Normal Pulses, Pulses Symmetrical Sepsis Peripheral Pulse Location: Dorsalis Pedis Sepsis Peripheral Pulse Exam: Normal Sepsis Cap Refill Exam: <2 Sec Body Front and Back (Adult) 1) ULCER-purelent 2) ulcer 3) erythema, swelling Last 24 Hrs of Labs/Ramin: Laboratory Tests 07/13/16 1732: Lactic Acid 2.6 H 07/13/16 1354: Anion Gap 13, Estimated GFR > 60, BUN/Creatinine Ratio 20.0, Glucose 212 H, Lactic Acid 2.7 H, Calcium 9.5, Total Bilirubin 0.9, AST 14 L, ALT 29, Alkaline Phosphatase 48, Troponin I < 0.01, Total Protein 7.7, Albumin 3.6, Globulin 4.1, Albumin/Globulin Ratio 0.9 L, CBC w Diff MAN DIFF ORDERED, RBC 4.33 L, MCV 86.1, MCH 29.7, RDW 14.6 H, MPV 8.0, Gran % 80.2 H, Lymphocytes % 10.1 L, Monocytes % 7.3, Eosinophils % 2.0, Basophils % 0.4, Absolute Granulocytes 15.6 H, Segmented Neutrophils 82 H, Band Neutrophils 3, Absolute Lymphocytes 2.0, Lymphocytes 10 L, Monocytes 5, Absolute Monocytes 1.4 H, Absolute Eosinophils 0.4, Absolute Basophils 0.1, Platelet Estimate ADEQUATE, Normocytic RBCs VERIFIED, Normochromic RBCs VERIFIED, PUBS MCHC 34.5 Microbiology 07/13 1726 URINE ROUT: Urine Culture - COLB 07/13 1400 BLOOD: Blood Culture - RECD 07/13 1354 BLOOD: Blood Culture - RECD Diagnostic Data EKG Results NSR HR 87, No STTWI Other Results MRI - MRI-RT ANKLE W/O JUANCHO 07/13/16-1535 1. Acute osteomyelitis involving talus and calcaneus as well as possibly the navicula and cuboid. Extensive adjacent soft tissue edema and inflammatory change, consistent with cellulitis. 2. Probable cutaneous ulcer over the posteromedial aspect of the ankle. 3. Diffuse abnormal signal throughout the tendon sheaths and plantar musculature consistent with associated infectious/inflammatory change. Assessment/Plan Assessment: He is a middle aged man w/ a PMH of chronic lower extremity ulcers, recently treated osteomyelitis is being evaluated for lightheadedness secondary to early sepsis from osteomyelitis. At the time of admission, vitals temp 98.6, KS 74, RR 18, BP 146/74, 110% RA. Lab findings indicated WBC 19.4 ( leucocytosis w/ 3% bands), Hb 12.9, platelets 378, Na 133, K 5.1, HCO3-23, Normal renal function BUN 18, Sr Cr 0.9, AG 13, Lactate 2.7-->pending, AST 14, ALT 29, Alp 48, Troponin 0.01--> pending. Biopsy cultures revealed growth of bacteroides, group B strep, Ecoli(sensitive to Ampicillin) 05/04/16. Ekg revealed NSR, HR 87 bpm. Echocardiogrm 05/22 revealed EF 60%, RV pressure 46mm. Radiological findings MRI left ankle revealed acute osteomyelitis involving talus, calcaneus, navicula and cuboid. Extensive adjacent soft tissue edema and inflammatory change, consistent with cellulitis. Below is a problem list and plan: 1. lightheadedness- likely from hypotension which is likely secondary to early sepsis, althought pt did not meet clear > 2 of SIRS criteria(except leucocytosis ). Fluids resuscitation w/ normal saline. Other sources such as cardiac, neuro to be ruled out. Check cardiac enzymes, and electrocardiograms. 2. Osteomyelitis- MRI revealed OM of ankle joint bones; extensive involvement of talus, calcaneus and navicular. Pt to undergo amputation, as per Dr Pappas. NPO at midnight. Direct spread from previous OM is likely, and so contiue unasyn to cover the anerboes, strep B, and Ecoli. No biopsy sample to be obtained. MUltiple ulcers seen. Pain management w/ percocet and oxycodone. 3. Diabetes- uncontrolled. Check HbA1c. Levemir and novolog sliding scale. 4. HTN- hodl antihypertenisves at this time. Restart in the am, after BP is more stable. 5. DVT prophylaxis- lovenox 6. As Ranked By This Provider Problem List: 1. Wound infection 2. Osteomyelitis 3. Non-pressure chronic ulcer of other part of right foot with fat layer exposed Core Measures/Miscellaneous Acute Coronary Syndrome ACS Diagnosis: No Cerebrovascular Accident CVA/TIA Diagnosis: No Congestive Heart Failure CHF Diagnosis: No Venous Thromboembolism VTE Risk Factors: Acute medical illness, Age > 40 [facility] prophylaxis d/t: No contraindications No VTE Pharm Prophylaxis d/t: No contraindications VTE Diagnosis: No VTE Type: NONE VTE Confirmed by (Test): NONE Severe Sepsis Severe Sepsis Present: No Septic Shock Septic Shock Present: Yes Miscellaneous Documentation Attending Case Discussed With: JENNA ROCA MD Primary Care Physician: SANDIE NEELY MD Patient sees these Specialists dr. pappas Level of Patient Care: Telemetry MARTAH HOUSE 07/13/16 1717: General Information and HPI MD Statement: I have seen and personally examined ALF JUAREZ and documented this H&P. The patient is a 45 year old M who presented with a patient stated chief complaint of [LIGHTEADENESS, DIZZINESS]. 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 Lynch is a 50 YO male with Past medical history of morbid obesity, type 2 diabetes mellitus on metformin, insulin and Januvia,hypertension on lisinopril and amlodipine, hyperlipidemia, he received medication in April 2016 with osteomyelitis of the right foot with group B strep bacteremia, with previous admission in March 2016 for C. difficile colitis, posterior neck abscess treated with IV oxacillin, open partial first ray resection of the right foot is brought in today after he was following up at the wound care center and a rapid response was called because he was found to be lightheaded and dizzy. The patient said that he has been feeling fine and is status post completion of 4 weeks of IV Unasyn and skin grafting recently in June after which he was here for regular follow-up. While sitting on the chair he felt lightheaded and dizzy and feared that he would pass out that's when the rapid response was called. She was found to be cold, clammy and diaphoretic in the wound care clinic, his vitals were blood pressure of 72/50, heart rate of 92, respiratory rate of 24, oxygen saturation 95%, [place] Coma Scale was 15. Patient was alert oriented and diaphoretic. Physical exam at the rapid response was essentially normal. He was transferred to the emergency department for evaluation of hypotension and sepsis. t MAXIMUM TEMPERATURE of 98.6, pulse rate of 74, respiration of 18, blood pressure of 146/74 after 2 L of normal saline bolus, he was 96% saturating on room air. Count of 19.4, 3 bands. Clinical exam patient was alert oriented 3 in no acute distress. The wound was opened and examined the patient had extensive ulceration on the medial aspect of the right foot with purulent drainage. There was also also noted on the heel area. There was also redness located in the right thigh from where the skin graft was previously taken. Patient did not have much sensation in the right foot. This were difficult to palpate. CVS S1 and S2 present no murmur. RS bilateral air entry equal, no adventitious sounds. Poor abdominal and soft, nontender. Neuro exam was nonfocal other than decreased sensation in b/l LE and loss of sensation in the right foot. Relevant labs white count of 19.4, 3 bands, H/H of 12.9/37.3, platelet of 378. Sodium noted to be 133, potassium of 5.1, BUN and creatinine 18/0.9, lactic acid elevated at 2.7, glucose 212. EKG showed normal sinus rhythm with a rate of 87, no acute T-wave changes. Last echocardiogram done in May 2016 showed EF of 60% mono no wall motion abnormalities. MRI of the ankle showed acute osteomyelitis involving the talus, calcaneus as well as navicular and cuboid bones with adjacent soft tissue edema consistent with cellulitis. There was also probable cutaneous ulcer over the posterior medial aspect of the ankle, diffuse abnormal signal throughout the tendon sheaths and plantar musculature consistent with inflammatory changes. Case was discussed with Dr. Pappas and Dr. Cao. Extensive osteomyelitis of the foot, as per Dr. Pappas patient will need amputation of the right foot. He is to touch base with vascular surgery to get them on board while planning for the amputation. He will be seeing the patient in a.m. tomorrow and talk about the anticipated surgery, now we will continue the patient on consistent carbohydrate diet and further plan for as per Dr. Pappas. Problem list along with assessment and plan. #1 Acute osteomyelitis of the right foot involving the talus, calcaneus, navicula, cuboid bone. * Continue to monitor vitals every shift, continue monitor intake and output. * Continue IV Unasyn. * Vascular surgery consult in anticipation of amputation of the right foot. * Dr. Pappas to talk to the patient in a.m. * Continue to follow blood cultures, urine cultures. * Id consult. #2 lightheadedness/dizziness. * Continue to monitor patient on cardiac art installer. * Trend EKG and troponins to rule out acute coronary syndrome, patient did not have any chest pain, does not complain of racing of heart. * Patient has significant focus of infection in the form of osteomyelitis, he was initially hypotensive when he came in, lactic acid was also found to be elevated therefore the lightheadedness could be secondary to the infected bone. Patient does have a white count however is afebrile. * Continue IV hydration. * Continue to follow blood cultures, urine cultures. #3 history of hypertension. * As the patient was hypotensive, we will hold all antihypertensive medications for now. * Continue to monitor blood pressure. * Restart as needed. #4 history of diabetes mellitus. * Patient's previous HbA1c was noted to be 10.7 in apr 2016, however the HbA1c has come down to 7.6. * Continue to monitor fingerstick tied back and chest. * Consistent carbohydrate tree diet. * Continue NovoLog sliding scale. * Hold all oral antidiabetic medications. * Ct levemir 20 units twice a day. Patient is full code. Consistent carbohydrate tree diet. DVT prophylaxis with Lovenox. Mild/moderate and severe pain to be ordered. JENNA ROCA MD 07/13/16 3798: Attending MD Review Statement Attending Statement Attending MD Statement: examined this patient, discuss w/resident/PA/LAUNDRY OPERATOR WASH ROOM, agreed w/resident/PA/LAUNDRY OPERATOR WASH ROOM, reviewed EMR data (avail) Attending Assessment/Plan: 45M PMH T2DM, diabetic neuropathy, history of multiple foot ulcers with right foot osteomyelitis s/p several surgeries, was being seen in wound care clinic when he syncopized, LOC a few seconds, no fall or head injury. Patient with chronic foot wounds and found on MRI to have acute osteomyelitis of most of the right foot and ankle. Patient feels well now and denies chest pain, palpitations, or SOB. Afebrile, WBC 19.4, labs otherwise normal. 1. Acute osteomyelitis of right foot 2. Syncope 3. Leukocytosis 4. Type 2 DM 5. Diabetic neuropathy Plan - Admit to telemetry - Serial EKG/troponin - Echocardiogram - Vascular consult for likely amputation - Podiatry and ID consults - Start Unsayn - Blood cultures - Continue home medications - DVT PPx
--- NOTE | 2016-07-13 17:37 | MRI REPORT ---
EXAMINATION: MR ANKLE WITHOUT CONTRAST, RIGHT CLINICAL INFORMATION: Right ankle pain/infection. Evaluate for abscess, osteomyelitis. COMPARISON: Multiple prior right foot radiographs, most recent dated 06/15/2016. TECHNIQUE: Multiplanar MR imaging was performed through the right ankle on a high-field scanner without intravenous contrast. FINDINGS: BONE: There is diffuse abnormal low T1/high T2 marrow signal throughout the talus as well as throughout the superior and anterior aspect of the calcaneus. Mild abnormal marrow signal is seen within the navicula as well as the proximal aspect of the cuboid. There are lobulated areas of abnormal fluid signal throughout the adjacent soft tissues with extensive soft tissue edema. These findings are consistent with acute osteomyelitis and associated cellulitis. MUSCLES/TENDONS: Diffuse edema is seen within the posterior tendon sheaths as well as throughout the plantar musculature, consistent with associated infection/inflammation. There is abnormal signal of the distal Achilles tendon, consistent with tendinosis. The visualized tendons are otherwise grossly intact. SOFT TISSUES: There is diffuse circumferential subcutaneous edema, most prominent on the posteromedial aspect of the ankle where there is a cutaneous abnormality which could represent an ulcer. These findings are consistent with cellulitis. IMPRESSION: 1. Acute osteomyelitis involving talus and calcaneus as well as possibly the navicula and cuboid. Extensive adjacent soft tissue edema and inflammatory change, consistent with cellulitis. 2. Probable cutaneous ulcer over the posteromedial aspect of the ankle. 3. Diffuse abnormal signal throughout the tendon sheaths and plantar musculature consistent with associated infectious/inflammatory change.
--- NOTE | 2016-07-13 17:38 | NUR ---
HOUSE STAFF TO BEDSIDE FOR EVAL.
--- NOTE | 2016-07-13 19:22 | PN- Student ---
Subjective Subjective: CC: dizziness Source: Patient, medical record HPI: 45yo male with PMH significant for morbid obesity and uncontrolled T2DM admitted from the ED for cellulitis and osteomyelitis in the R foot and ankle in the setting of a chronic non-healing wound s/p amputation of the R great toe, and subsequent secondary infection and skin grafting. Pt states October 2015 he stepped on an electric cord which pierced his R foot. He was managing the injury in the [facility] . Pt states early 2016, in an effort to lose weight, he began a walking regimen which exacerbated his injury. This resulted in the amputation of the R great toe in [place] [address] Dowd. Post-op period was complicated by a secondary infection of the ankle (B. fragilis, GBS, E. coli) and distal posterior lower leg requiring auto skin grafting. Pt has been in STR at [facility] and followed in the Wound Clinic since Apr 2016. Today, pt was in PT when he began to feel dizzy/light-headed. Vital signs stable and he was transferred to Wound Clinic for regular appt. In the Wound Clinic he had an episode of acute onset cold/clammy feeling, dizziness, light-headedness, and confusion while sitting in his wheel chair having his dressing changed. Pt reports glucose was 203 and BP was 86/50 at this time. He was transferred to [facility] (formerly [facility]3] and taken to ED. Per pt, once on stretcher the dizziness resolved. In the ED he received 2L IV fluids and his BP recovered to 106/56. WBC in the ED 19.4. Pt was sent for MRI of the R ankle and found to have osteomyelitis. IV Unasyn started in the ED, and pt admitted to telemetry for monitoring s/p near syncopal episode and further assessment. Pt also states he is "emotionally shot " and would like psych consult while inpatient. Allergies: cephalexin (From KEFLEX) (Intermediate, HIVES 04/29/16) adhesive (Mild, IRRITATION 04/29/16) Medications: Amlodipine Besylate 5 MG TABLET 1 TAB PO DAILY HTN (Reported) Insulin Detemir (Levemir Flextouch) 100 UNIT/ML (3 ML) INSULN.PEN 20 U SC BID DIABETES (Reported) Lisinopril 40 MG TABLET 1 TAB PO DAILY HTN (Reported) Lovastatin 20 MG TABLET 1 TAB PO DAILY cholesterol (Reported) Metformin HCl 500 MG TABLET 1 TAB PO BID DM II (Reported) Sitagliptin Phosphate (Januvia) 100 MG TABLET 1 TAB PO DAILY DM II (Reported) PMH: PMH significant for uncontrolled T2DM. Pt states he was diagnosed with DM 20 years ago, was placed on insulin 15 years ago. After 2yrs tx with insulin, pt states he was unable to afford medications and was lost to follow-up for the next 12 years until he presented to Apr 2015 with cellulitis/neck abscess. Pt states bg at that time was aroun 600. Since then, he has been managed on DM medications. HbA1C above 10.0 for the past year until yesterday. Cardiovascular: hypertension, hyperlipidemia Respiratory: NONE Gastrointestinal: C. difficile s/p tx with IV Vanco and Unasyn Hepatic: NONE Renal: NONE Musculoskeletal: NONE Psychiatric: does not have outside psychiatrist, would like psych consult for stress Endocrine: diabetes, obesity Blood Disorders: NONE Cancer(s): NONE History of MRSA: No History of VRE: No History of CDIFF: YES Surg Hx: R great toe amputation, 04/2016 appendectomy, 5yo status post I&D of a posterior neck abscess, 04/2015 L SHOULDER SX, decompression, removal of scar tissue FH: FATHER (coronary artery disease-status post angioplasty and stents). MOTHER (diverticulitis). BROTHER (diabetes). Paternal grandfather: DM Paternal grandmother: pancreatic ca Maternal grandfather: DM Maternal grandmother: arterial disease, leg bypass Relation not specified for: FH: diabetes mellitus ROS: Const: denies fever, chills CV: denies CP Pulm: denies SOB Abd: denies pain/nausea/vomiting/diarrhea, denies blood or mucus in stool : denies dysuria/hematuria Objective Objective: Vital Signs Date Time Temp Pulse Resp B/P B/P Pulse O2 O2 Flow FiO2 Mean Ox Delivery Rate 07/13 1546 98.6 74 18 146/74 100 Room Air 07/13 1410 91 20 106/56 96 Room Air 07/13 1330 98 Room Air 07/13 1303 86 20 96/55 97 Room Air Gen: obese male, lying on stretcher, resting, NAD CV: distant heart sounds, S1S2, RRR, no m/r/g Lungs: CTABL, no increased WOB Abd: soft, NT, ND Ext: R foot and ankle with extensive non-healing wound, necrosis and purulence around the margins, wound extends from medial aspect of the distal metatarsals along the median edge of the foot to the heel and medial to the [place]'s tendon. No peripheral edema. Neuro: AAOx4 Psych: pt states he is not doing well psychologically, "emotionally shot" Results Results: Laboratory Tests 07/13/16 1732: Lactic Acid 2.6 H 07/13/16 1354: Anion Gap 13, Estimated GFR > 60, BUN/Creatinine Ratio 20.0, Glucose 212 H, Lactic Acid 2.7 H, Calcium 9.5, Total Bilirubin 0.9, AST 14 L, ALT 29, Alkaline Phosphatase 48, Troponin I < 0.01, Total Protein 7.7, Albumin 3.6, Globulin 4.1, Albumin/Globulin Ratio 0.9 L, CBC w Diff MAN DIFF ORDERED, RBC 4.33 L, MCV 86.1, MCH 29.7, RDW 14.6 H, MPV 8.0, Gran % 80.2 H, Lymphocytes % 10.1 L, Monocytes % 7.3, Eosinophils % 2.0, Basophils % 0.4, Absolute Granulocytes 15.6 H, Segmented Neutrophils 82 H, Band Neutrophils 3, Absolute Lymphocytes 2.0, Lymphocytes 10 L, Monocytes 5, Absolute Monocytes 1.4 H, Absolute Eosinophils 0.4, Absolute Basophils 0.1, Platelet Estimate ADEQUATE, Normocytic RBCs VERIFIED, Normochromic RBCs VERIFIED, PUBS MCHC 34.5 Microbiology 07/13 1726 URINE ROUT: Urine Culture - COLB 07/13 1400 BLOOD: Blood Culture - RECD 07/13 1354 BLOOD: Blood Culture - RECD 07/13/2016 EXAM TYPE: MRI - MRI-RT ANKLE W/O JUANCHO EXAMINATION: MR ANKLE WITHOUT CONTRAST, RIGHT CLINICAL INFORMATION: Right ankle pain/infection. Evaluate for abscess, osteomyelitis. COMPARISON: Multiple prior right foot radiographs, most recent dated 06/15/2016. TECHNIQUE: Multiplanar MR imaging was performed through the right ankle on a high-field scanner without intravenous contrast. FINDINGS: BONE: There is diffuse abnormal low T1/high T2 marrow signal throughout the talus as well as throughout the superior and anterior aspect of the calcaneus. Mild abnormal marrow signal is seen within the navicula as well as the proximal aspect of the cuboid. There are lobulated areas of abnormal fluid signal throughout the adjacent soft tissues with extensive soft tissue edema. These findings are consistent with acute osteomyelitis and associated cellulitis. MUSCLES/TENDONS: Diffuse edema is seen within the posterior tendon sheaths as well as throughout the plantar musculature, consistent with associated infection/inflammation. There is abnormal signal of the distal Achilles tendon, consistent with tendinosis. The visualized tendons are otherwise grossly intact. SOFT TISSUES: There is diffuse circumferential subcutaneous edema, most prominent on the posteromedial aspect of the ankle where there is a cutaneous abnormality which could represent an ulcer. These findings are consistent with cellulitis. IMPRESSION: 1. Acute osteomyelitis involving talus and calcaneus as well as possibly the navicula and cuboid. Extensive adjacent soft tissue edema and inflammatory change, consistent with cellulitis. 2. Probable cutaneous ulcer over the posteromedial aspect of the ankle. 3. Diffuse abnormal signal throughout the tendon sheaths and plantar musculature consistent with associated infectious/inflammatory change. Assessment/Plan Assessment: Pt is a 45yo male with PMH significant for T2DM, HTN, and HLD admitted from the ED for near syncopal episode and ostemyelitis of the R ankle s/p amputation. Pt has been treated since Oct 2015 for a non-healing wound which progressed to a R great toe amputation and secondary infection. Today the wound is necrotic around the margins, and the surrounding tissue edematous and erythematous. Pt likely has cellulitis in addition to osteomyelitis which was seen on MRI. Differential Dx for pt's dizziness and light-headedness includes vaso-vagal response vs. orthostatic hypotension vs. sepsis vs. cardiogenic. Pt states he does not like to see his wound and removes his glasses when his dressing is being changed. Pt did not visualize his wound, but his symptoms did gt worse when the dressing was being changed. Pt is normally hypertensive and a drop in bp to <100mmHg systolic would make him symptomatic. His dizziness resolved once he was laying flat on the stretcher. BP increased to >100mmHg after 2L fluids. Pt has been afebrile despite a WBC of 19.4. Pt does not currently meet SIRS criteria and is hemodynamically stable, however, in the setting of osteomyelitis, should be monitored closely. Possible cardiogenic syncope should also be considered in this pt with a history of HTN, HLD, uncontrolled DM >10yrs, and family history of cardiovascular disease. These are risk factors for CVD. Pt did have an echocardiogram in 05/2016. At the time of the study, his left ventricular ejection fraction estimated at 55-60%. Findings also significant for physiologic pericardial effusion, minimal to mild tricuspid insufficiency is present with mild pulmonary hypertension and an estimated RV systolic pressure of 46 mmHg. Pericardial effusion that progresses to tamponade can present as cardiogenic shock and hypotension. However, pt denies SOB/dyspnea and is hemodynamically stable. Plan: #1 R Ankle osteomyelitis/cellulitis: -consult Dr. Dowd -consult vascular surgery -start Unasyn per ID -monitor for SIRS/sepsis -recheck CBC tomorrow #2 near syncopal episode: -monitor on telemetry -possible Cardiology consult -review echo from 05/2016 -repeat CBC/CMP tomorrow #3 emotional stress: -consult psych PCP: Tito Sandoval MD Endo: Dr. Azul Ortho: Dr. Dowd FULLL CODE
--- NOTE | 2016-07-13 20:09 | NUR ---
PT PROVIDED WITH BOX LUNCH FOR DINNER. MEDICATED PER EMAR.
--- NOTE | 2016-07-13 22:25 | NUR ---
PT BED ASSIGNMENT 189-1
--- NOTE | 2016-07-13 22:39 | NUR ---
REPORT GIVEN TO LEONARD LEUNG. TRANSPORT CALLED AT THIS TIME. HOUSE STAFF PAGED AT 133 PER CANDY VENDOR TO REPORT EKG AND OTHER PT CONCERNS.
[2016-07-13 23:00] VITALS: BP 148/80
--- NOTE | 2016-07-14 | NUR ---
REPORT RECIEVED FROM LEONARD GRIDER IN ED. PT ARRIVED TO ROOM VIA DISTRIBUTION. AOX3, RA, VSS, IN NO APPARENT OR REPORTED DISTRESS. MONITOR ATTACEHD TO PT, NSR. RLE WRAPPED IN KERLIX DRESSING, CDI. PT DENIED PAIN. ONE ASSIST FOR HELP WITH URINAL UPON ARRIVAL. DENIED ANY DIZZINESS. ORIENTED TO ROOM AND CALL BUTTON. WILL CONTINUE TO MONITOR
[2016-07-14 01:06] VITALS: BP 142/62
[2016-07-14 04:59] LABS: ABSOLUTE BASOPHIL COUNT 0 /CUMM (0.0-0.2); ABSOLUTE EOSINOPHIL COUNT 0.5 /CUMM (0.0-0.7); ABSOLUTE GRANULOCYTE CT 9.8 /CUMM (1.4-6.5); ABSOLUTE MONOCYTE COUNT 1.2 /CUMM (0.10-0.60); BASOPHIL % 0.3 % (0.0-2.0); EOSINOPHIL % 3.4 % (0-5); GRANULOCYTE % 72.6 % (42.2-75.2); HEMATOCRIT 34.7 % (42-52); MEAN CORPUSCULAR HGB 28.7 PG (27.0-31.0); MEAN CORPUSCULAR VOLUME 86.9 FL (80.0-94.0); MEAN PLATELET VOLUME 7.9 FL (7.4-10.4); PLATELET COUNT 339 /CUMM (130-400); RBC DISTRIBUTION WIDTH 14.5 % (11.5-14.5); RED BLOOD CELL CT 3.99 /CUMM (4.70-6.10); WHITE BLOOD CELL COUNT 13.4 /CUMM (4.8-10.8)
[2016-07-14 08:23] VITALS: BP 142/80
--- NOTE | 2016-07-14 10:09 | PN- Housestaff ---
BEATRIZ PERKINS,DAYDAY 07/14/16 1008: Subjective Follow-up For: Right ankle osteomyelitis Complaints: no complaints Tele-Events Since Last Visit: NSR Subjective: Patient is comfortably lying in bed. He remains afebrile. He denies any right lower extremity pain. He denies any nausea, vomiting, abdominal pain, chest pain, shortness of breath, lightheadedness, dizziness, loss of consciousness. Review of Systems Constitutional: Reports: see HPI. Objective Last 24 Hrs of Vital Signs/I&O Vital Signs Date Time Temp Pulse Resp B/P B/P Pulse O2 O2 Flow FiO2 Mean Ox Delivery Rate 07/14 0823 98.5 80 18 142/80 96 Room Air 07/14 0106 98.3 81 18 142/62 97 Room Air 07/13 2300 98.1 91 16 148/80 95 Room Air / 2240 97.8 90 22 128/76 95 Room Air /08 1950 98.5 88 18 134/75 98 Room Air Room Air 07/13 1546 98.6 74 18 146/74 100 Room Air 07/13 1410 91 20 106/56 96 Room Air 07/13 1330 98 Room Air / 1303 86 20 96/55 97 Room Air Intake & Output 07/14 1600 07/14 0800 05 0000 Intake Total 200 0 Output Total 750 760 Balance -550 -760 Intake, IV 200 Intake, Oral 0 0 Output, Urine 750 760 Patient 279 lb Weight Weight Reported by Patient Measurement Method Physical Exam General Appearance: Alert, Oriented X3, Cooperative, No Acute Distress Skin: noted Rt. ankle medial malleolal ulcer with clear margin, surrounding erythema covered with dressing Skin Temp/Moisture Exam: Warm/Dry Sepsis Skin Exam (color): Normal for Ethnicity HEENT: Atraumatic, PERRLA, EOMI, Mucous Membr. moist/pink Neck: Supple, No JVD Cardiovascular: Regular Rate, Normal S1, Normal S2, No Murmurs Lungs: Clear to Auscultation, Normal Air Movement Abdomen: Normal Bowel Sounds, Soft, No Tenderness Neurological: Normal Speech, Strength at 5/5 X4 Ext, Normal Tone, Sensation Intact, Cranial Nerves 3-12 NL Extremities: rt. le wound covered with dressing Vascular: Normal Pulses, Pulses Symmetrical Sepsis Peripheral Pulse Location: Dorsalis Pedis Sepsis Peripheral Pulse Exam: Normal Sepsis Cap Refill Exam: >2 sec Current Medications: Current Medications Sig/Angela Start time Last Medication Dose Route Stop Time Status Admin Acetaminophen 650 MG Q6P PRN 07/13 1929 AC PO Ampicillin Sodium/ 3,000 MG Q6H 07/14 0200 AC 07/14 Sulbactam Sodium IV 09 Sodium Chloride 100 ML Ampicillin Sodium/ 0 .STK-MED ONE 07/14 1947 DC Sulbactam Sodium .ROUTE Ampicillin Sodium/ 3,000 MG Q6 07/13 1849 DC 07/13 Sulbactam Sodium IV 2007 Sodium Chloride 100 ML Atorvastatin Calcium 20 MG 1700 07/13 1733 AC 07/13 PO 2008 Dextrose/Sodium 1,000 ML Q13H 07/14 0230 07/14 Chloride IV 0352 Enoxaparin Sodium 0 .STK-MED ONE 07/14 1947 DC SC Enoxaparin Sodium 40 MG DAILY 07/13 1725 07/13 SC 2008 Insulin Aspart 0 AT BEDTIME 07/14 2200 CAN SC Insulin Aspart 0 TIDAC 07/14 0800 CAN SC Insulin Detemir 10 UNITS BID 07/14 1000 AC SC Insulin Detemir 20 UNITS BID 07/13 2327 DC 07/13 DC 2341 Insulin Human Regular 0 Q6 07/14 0228 07/14 SC 0658 Oxycodone HCl 0 .STK-MED ONE 07/14 1947 DC PO Oxycodone HCl 5 MG Q6H 07/13 193 AC 07/14 PO 0233 Oxycodone/ 2 TAB Q6P PRN 07/13 193 AC Acetaminophen PO Sodium Chloride 1,000 ML BOLUS ONE 07/13 1515 UT 07/13 IV 07/13 1614 1534 Sodium Chloride 1,000 ML BOLUS ONE 07/13 1345 DC 07/13 IV 07/13 1444 1400 Last 24 Hrs of Lab/Ramin Results Last 24 Hrs of Labs/Mics: Laboratory Tests 07/14/165: Troponin I < 0.01 07/14/16 0415: Anion Gap 10, Estimated GFR > 60, BUN/Creatinine Ratio 26.0 H, Phosphorus 4.0, Magnesium 1.8, CBC w Diff NO MAN DIFF REQ, RBC 3.99 L, MCV 86.9, MCH 28.7, RDW 14.5, MPV 7.9, Gran % 72.6, Lymphocytes % 14.7 L, Monocytes % 9.0, Eosinophils % 3.4, Basophils % 0.3, Absolute Granulocytes 9.8 H, Absolute Lymphocytes 2.0, Absolute Monocytes 1.2 H, Absolute Eosinophils 0.5, Absolute Basophils 0, PUBS MCHC 33.0 07/13/162309: Urinalysis MOD H, Urine Color YEL, Urine Clarity CLEAR, Urine pH 6.0, Ur Specific [place] 1.025, Urine Protein TRACE H, Urine Ketones NEG, Urine Nitrite NEG, Urine Bilirubin NEG, Urine Urobilinogen 0.2, Ur Leukocyte Esterase NEG, Ur Microscopic SEDIMENT EXAMINED, Urine RBC 1-3, Urine WBC RARE, Ur Epithelial Cells FEW, Hyaline Casts 3-5 H, Urine Mucus MANY H, Urine Hemoglobin TRACE H, Urine Glucose NEG 07/13/162207: Troponin I < 0.01 07/13/162207: Lactic Acid 1.2 07/13/16 1732: Lactic Acid 2.6 H 07/13/16 1354: Anion Gap 13, Estimated GFR > 60, BUN/Creatinine Ratio 20.0, Glucose 212 H, Lactic Acid 2.7 H, Calcium 9.5, Total Bilirubin 0.9, AST 14 L, ALT 29, Alkaline Phosphatase 48, Troponin I < 0.01, Total Protein 7.7, Albumin 3.6, Globulin 4.1, Albumin/Globulin Ratio 0.9 L, CBC w Diff MAN DIFF ORDERED, RBC 4.33 L, MCV 86.1, MCH 29.7, RDW 14.6 H, MPV 8.0, Gran % 80.2 H, Lymphocytes % 10.1 L, Monocytes % 7.3, Eosinophils % 2.0, Basophils % 0.4, Absolute Granulocytes 15.6 H, Segmented Neutrophils 82 H, Band Neutrophils 3, Absolute Lymphocytes 2.0, Lymphocytes 10 L, Monocytes 5, Absolute Monocytes 1.4 H, Absolute Eosinophils 0.4, Absolute Basophils 0.1, Platelet Estimate ADEQUATE, Normocytic RBCs VERIFIED, Normochromic RBCs VERIFIED, PUBS MCHC 34.5 Microbiology 07/13 2309 URINE ROUT: Urine Culture - RES 07/13 1400 BLOOD: Blood Culture - RECD 07/13 1354 BLOOD: Blood Culture - RECD Orders Fingersticks (last 24 hrs): [phone] Assessment/Plan Assessment: This is 45 year old male with past medical history of diabetes who was treated for right lower extremity osteomyelitis/infected right foot plantar ulcer status post first ray resection and I&D in May 2016 with 4 weeks course of IV Unasyn, with wound VAC who was [facility] from [facility] for routine evaluation of his wound found to be lightheaded in setting of sepsis, was evaluated in ER with MRI of right foot suggesting osteomyelitis involving the talus and calcaneus. #1 Acute osteomyelitis of the right foot involving the talus, calcaneus, navicula, cuboid bone. Remains afebrile, with improvement in leukocytosis Continue IV Unasyn. Vascular surgery consult in anticipation of amputation of the right foot. As per Dr. Dowd patient needs to be evaluated by vascular surgery for possible BKA Awaiting vascular surgery input Continue to follow blood cultures, urine cultures- no growth after 1 day Id recommendation appreciated #2 lightheadedness/dizziness. Noted 3 sets of troponin negative without any EKG changes Likely lightheadedness is secondary to hypotension in setting of sepsis due to osteomyelitis Improved, after IV hydration Patient is eating. Stop IV hydration #3 history of hypertension. Blood pressure is much better today 140/88 - Will restart low-dose lisinopril 20 mg daily and titrate accordingly - Continue to hold amlodipine 5 mg for now #4 history of diabetes mellitus. Patient's previous HbA1c was noted to be well in April 2016, however the HbA1c has come down to 7.6. Continue to monitor fingerstick 3 times a day before meals and bedtime Consistent carbohydrate diet. Continue NovoLog sliding scale. Hold all oral antidiabetic medications. Ct levemir 20 units twice a day. If patient is planned for surgery tomorrow, we'll switch Levemir 10 units twice a day and change NovoLog sliding scale to Novolin NPO nothing by mouth sliding scale every 6 hourly with 50 mL of D5 half normal saline per hour 5. DVT prophylaxis Heparin subcutaneous Problem List: 1. Osteomyelitis 2. Hypertension 3. Diabetes mellitus Pain Ratin Pain Location: rt. le pain Pain Goal: Pain 4 or less Pain Plan: tylenol Tomorrow's Labs & Rationales: cbc, bep DVT/Prophylaxis: pharmacological MEREDITH COYNE MD 07/14/16 1610: Attending MD Review Statement Attending Statement Attending MD Statement: examined this patient, discuss w/resident/PA/BOILER CONTROL TECHNICIAN, agreed w/resident/PA/BOILER CONTROL TECHNICIAN, discussed with family, reviewed EMR data (avail), discussed with nursing, discussed with case mgmt, reviewed images, amended to note Attending Assessment/Plan: Patient seen and examined, feeling depressed about everything going on. He has been treated in the past transaminitis and currently admitted with dizziness likely secondary to some hypotension related to osteomyelitis. Currently getting treated with antibiotics and podiatry has been called. Dr. Dowd want vascular surgery consult. Continue current insulin regimen as blood sugars are in acceptable range. Patient is on Unasyn per infectious disease. Please clarify with the podiatry about the plan for surgery. DVT prophylaxis: Lovenox. Psychiatry consult will be obtained.
--- NOTE | 2016-07-14 11:34 | Cons- Infect Disease ---
General Information and HPI Consulting Request Date of Consult: 07/14/16 Requested By: JENNA ROCA MD Reason for Consult: Osteomyelitis of the right foot and heel Source of Information: patient, family History of Present Illness: This is a 45-year-old man with diabetes, hospitalized 2 and 1/2 months prior to admission with Group B strep sepsis secondary to an infected/gangrenous right foot plantar ulcer, requiring amputation of the right great toe, with several returns to the OR for revisional first ray resection and I&D of a retrocalcaneal abscess, treated with a 4 week course of Unasyn following his most recent debridement (completed 5 weeks prior to admission) with placement of a wound VAC , which was in place until the day of admission, status post application of an Integra allograft to the right ankle and a split-thickness skin graft to the right foot 2 weeks prior to admission, admitted on July 13 after a syncopal episode at the wound clinic. On admission he was afebrile. Laboratory data revealed a white blood cell count of 19,000, glucose 212, BUN/creatinine 18 and 0.9, lactic acid 2.7. Urinalysis 1-3 RBC/rare WBCs. MRI of the right ankle revealed osteomyelitis involving the talus and calcaneus as well as, possibly, the navicula and cuboid. He was begun on Unasyn. He has remained afebrile overnight. He does note pain on examination of the foot but is otherwise without complaints. He is apparently scheduled for the OR later today. Allergies/Medications Allergies: Coded Allergies: cephalexin (From KEFLEX) (Intermediate, HIVES 04/29/16) adhesive (Mild, IRRITATION 04/29/16) Home Med List: Amlodipine Besylate 5 MG TABLET 1 TAB PO DAILY HTN (Reported) Insulin Detemir (Levemir Flextouch) 100 UNIT/ML (3 ML) INSULN.PEN 20 U SC BID DIABETES (Reported) Lisinopril 40 MG TABLET 1 TAB PO DAILY HTN (Reported) Lovastatin 20 MG TABLET 1 TAB PO DAILY cholesterol (Reported) Metformin HCl 500 MG TABLET 1 TAB PO BID DM II (Reported) Sitagliptin Phosphate (Januvia) 100 MG TABLET 1 TAB PO DAILY DM II (Reported) Past History Travel History Traveled to [place] past 21 day No Medical History Blood Transfusion Hx: No Neurological: NONE EENT: NONE Cardiovascular: hypertension, hyperlipidemia Respiratory: NONE Gastrointestinal: C. 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 MOTHER (diverticulitis). BROTHER (diabetes). Relation not specified for: FH: diabetes mellitus Psychosocial History Services at Home: None Smoking Status: Never Smoked ETOH Use: denies use Illicit Drug Use: denies illicit drug use Functional Ability ADLs Independent: dressing, eating, toileting, bathing. Review of Systems Review of Systems All Other Systems: Reviewed and Negative Exam & Diagnostic Data Last 24 Hrs of Vital Signs/I&O Vital Signs Date Time Temp Pulse Resp B/P B/P Pulse O2 O2 Flow FiO2 Mean Ox Delivery Rate 07/14 0823 98.5 80 18 142/80 96 Room Air 07/14 0106 98.3 81 18 142/62 97 Room Air / 2300 98.1 91 16 148/80 95 Room Air / 2240 97.8 90 22 128/76 95 Room Air /08 1950 98.5 88 18 134/75 98 Room Air Room Air 07/13 1546 98.6 74 18 146/74 100 Room Air 07/13 1410 91 20 106/56 96 Room Air / 1330 98 Room Air / 1303 86 20 96/55 97 Room Air Intake & Output 07/14 1600 07/14 0800 07/14 0000 Intake Total 200 0 Output Total 750 760 Balance -550 -760 Intake, IV 200 Intake, Oral 0 0 Output, Urine 750 760 Patient 279 lb Weight Weight Reported by Patient Measurement Method Physical Exam Other Physical Findings: He is awake and alert in no acute distress. He is afebrile. Skin reveals no rash. HEENT exam is negative. Neck is supple with no adenopathy. Lungs are clear. Heart regular rhythm with no murmur. Abdomen is obese, soft, nontender with positive bowel sounds. Back no CVA tenderness. Extremities right foot status post great toe amputation and skin graft, with no signs of inflammation; right medial malleolar/calcaneal wounds fairly clean, with no necrosis or purulence and with no surrounding erythema, tender to palpation; minimal edema of the lower extremities; pulses 1+ and equal both feet. Neuro neuropathy both feet. Last 24 Hours of Lab Results: Laboratory Tests 07/14 07/14 7505 0412 Chemistry Sodium (137 - 145 mmol/L) 137 Potassium (3.5 - 5.1 mmol/L) 4.1 Chloride (98 - 107 mmol/L) 104 Carbon Dioxide (22 - 30 mmol/L) 23 Anion Gap (5 - 16) 10 BUN (9 - 20 mg/dL) 13 Creatinine (0.7 - 1.2 mg/dL) 0.5 L Estimated GFR (>60 ml/min) > 60 BUN/Creatinine Ratio (7 - 25 %) 26.0 H Phosphorus (2.5 - 4.5 mg/dL) 4.0 Magnesium (1.6 - 2.3 mg/dL) 1.8 Troponin I (<0.11 ng/ml) < 0.01 Hematology CBC w Diff NO MAN DIFF REQ WBC (4.8 - 10.8 /CUMM) 13.4 H RBC (4.70 - 6.10 /CUMM) 3.99 L Hgb (14.0 - 18.0 G/DL) 11.5 L Hct (42 - 52 %) 34.7 L MCV (80.0 - 94.0 FL) 86.9 MCH (27.0 - 31.0 PG) 28.7 RDW (11.5 - 14.5 %) 14.5 Plt Count (130 - 400 /CUMM) 339 MPV (7.4 - 10.4 FL) 7.9 Gran % (42.2 - 75.2 %) 72.6 Lymphocytes % (20.5 - 51.1 %) 14.7 L Monocytes % (1.7 - 9.3 %) 9.0 Eosinophils % (0 - 5 %) 3.4 Basophils % (0.0 - 2.0 %) 0.3 Absolute Granulocytes (1.4 - 6.5 /CUMM) 9.8 H Absolute Lymphocytes (1.2 - 3.4 /CUMM) 2.0 Absolute Monocytes (0.10 - 0.60 /CUMM) 1.2 H Absolute Eosinophils (0.0 - 0.7 /CUMM) 0.5 Absolute Basophils (0.0 - 0.2 /CUMM) 0 PUBS MCHC (33.0 - 37.0 G/DL) 33.0 07/13 07/13 07/13 07/13 2310 2208 2208 1732 Chemistry Lactic Acid (0.7 - 2.1 mmol/L) 1.2 2.6 H Troponin I (<0.11 ng/ml) < 0.01 Urines Urinalysis MOD H Urine Color (YEL,AMB,STR) YEL Urine Clarity (CLEAR) CLEAR Urine pH (5.0 - 8.0) 6.0 Ur Specific Me[place] (1.001 - 1.035) 1.025 Urine Protein (NEG,<30 MG/DL) TRACE H Urine Ketones (NEG) NEG Urine Nitrite (NEG) NEG Urine Bilirubin (NEG) NEG Urine Urobilinogen (0.1 - 1.0 EU/dl) 0.2 Ur Leukocyte Esterase (NEG) NEG Ur Microscopic SEDIMENT EXAMINED Urine RBC (0 - 5 /HPF) 1-3 Urine WBC (0 - 2 /HPF) RARE Ur Epithelial Cells (NONE,FEW) FEW Hyaline Casts (0/LPF) 3-5 H Urine Mucus (FEW,NONE) MANY H Urine Hemoglobin (NEG) TRACE H Urine Glucose (N MG/DL) NEG 07/13 1354 Chemistry Sodium (137 - 145 mmol/L) 133 L Potassium (3.5 - 5.1 mmol/L) 5.1 Chloride (98 - 107 mmol/L) 97 L Carbon Dioxide (22 - 30 mmol/L) 23 Anion Gap (5 - 16) 13 BUN (9 - 20 mg/dL) 18 Creatinine (0.7 - 1.2 mg/dL) 0.9 Estimated GFR (>60 ml/min) > 60 BUN/Creatinine Ratio (7 - 25 %) 20.0 Glucose (65 - 99 mg/dL) 212 H Lactic Acid (0.7 - 2.1 mmol/L) 2.7 H Calcium (8.4 - 10.2 mg/dL) 9.5 Total Bilirubin (0.2 - 1.3 mg/dL) 0.9 AST (17 - 59 U/L) 14 L ALT (21 - 72 U/L) 29 Alkaline Phosphatase (< 127 U/L) 48 Troponin I (<0.11 ng/ml) < 0.01 Total Protein (6.3 - 8.2 g/dL) 7.7 Albumin (3.5 - 5.0 g/dL) 3.6 Globulin (1.9 - 4.2 gm/dL) 4.1 Albumin/Globulin Ratio (1.1 - 2.2 %) 0.9 L Hematology CBC w Diff MAN DIFF ORDERED WBC (4.8 - 10.8 /CUMM) 19.4 H RBC (4.70 - 6.10 /CUMM) 4.33 L Hgb (14.0 - 18.0 G/DL) 12.9 L Hct (42 - 52 %) 37.3 L MCV (80.0 - 94.0 FL) 86.1 MCH (27.0 - 31.0 PG) 29.7 RDW (11.5 - 14.5 %) 14.6 H Plt Count (130 - 400 /CUMM) 378 MPV (7.4 - 10.4 FL) 8.0 Gran % (42.2 - 75.2 %) 80.2 H Lymphocytes % (20.5 - 51.1 %) 10.1 L Monocytes % (1.7 - 9.3 %) 7.3 Eosinophils % (0 - 5 %) 2.0 Basophils % (0.0 - 2.0 %) 0.4 Absolute Granulocytes (1.4 - 6.5 /CUMM) 15.6 H Segmented Neutrophils (42.2 - 75.2 %) 82 H Band Neutrophils (0.0 - 5.0 %) 3 Absolute Lymphocytes (1.2 - 3.4 /CUMM) 2.0 Lymphocytes (20.5 - 51.1 %) 10 L Monocytes (1.7 - 9.3 %) 5 Absolute Monocytes (0.10 - 0.60 /CUMM) 1.4 H Absolute Eosinophils (0.0 - 0.7 /CUMM) 0.4 Absolute Basophils (0.0 - 0.2 /CUMM) 0.1 Platelet Estimate (ADEQUATE) ADEQUATE Normocytic RBCs VERIFIED Normochromic RBCs VERIFIED PUBS MCHC (33.0 - 37.0 G/DL) 34.5 Last 24 Hours of Ramin Results: Blood cultures July 13 negative Urine culture July 13 negative Diagnostic Data Recent Imaging Findings: MRI of the right ankle July 13 reveals acute osteomyelitis involving the talus and calcaneus as well as, possibly, the navicular and cuboid with extensive adjacent soft tissue edema and inflammatory change Assessment/Plan Assessment/Plan Impression: This is a 45-year-old man with diabetes, hospitalized 2 and 1/2 months prior to admission with a chronic right foot plantar ulcer, found to have underlying osteomyelitis, for which he required amputation of the right great toe, and evidence of infection posteriorly, requiring drainage of a retrocalcaneal abscess, treated with a four-week course of Unasyn, with a wound VAC in place, status post split thickness skin graft to the right foot and an Integra allograft to the right ankle 2 weeks prior to admission, admitted on July 13 after a syncopal episode at the wound center, found to be afebrile with a marked leukocytosis and with an MRI of the right ankle revealing osteomyelitis of the talus, calcaneus and, possibly, the navicula and cuboid. He will require extensive debridement of the foot and, apparently, right BKA is being considered. He was begun empirically on Unasyn, which can be continued pending surgery and OR cultures. Suggestion: 1. Await Podiatry and Vascular surgery evaluation 2. Continue Unasyn pending above Consult Acknowledgment - Thank you for your consult request.
[2016-07-14 15:30] VITALS: BP 108/82
[2016-07-15 00:57] VITALS: BP 142/68
--- NOTE | 2016-07-15 07:18 | PN- Housestaff ---
Assessment/Plan Assessment: This is 45 year old male with past medical history of diabetes who was treated for right lower extremity osteomyelitis/infected right foot plantar ulcer status post first ray resection and I&D in May 2016 with 4 weeks course of IV Unasyn, with wound VAC who was returned from [facility] for routine evaluation of his wound found to be lightheaded in setting of sepsis, was evaluated in ER with MRI of right foot suggesting osteomyelitis involving the talus and calcaneus. #1 Acute osteomyelitis of the right foot involving the talus, calcaneus, navicula, cuboid bone. Remains afebrile, with improvement in leukocytosis Continue IV Unasyn. Vascular surgery consult in anticipation of amputation of the right foot. As per Dr. Dowd patient needs to be evaluated by vascular surgery for possible BKA Awaiting vascular surgery input Continue to follow blood cultures, urine cultures- no growth after 1 day Id recommendation appreciated #2 lightheadedness/dizziness. Noted 3 sets of troponin negative without any EKG changes Likely lightheadedness is secondary to hypotension in setting of sepsis due to osteomyelitis Improved, after IV hydration Patient is eating. Stop IV hydration #3 history of hypertension. Blood pressure is much better today 140/88 - Will restart low-dose lisinopril 20 mg daily and titrate accordingly - Continue to hold amlodipine 5 mg for now #4 history of diabetes mellitus. Patient's previous HbA1c was noted to be well in April 2016, however the HbA1c has come down to 7.6. Continue to monitor fingerstick 3 times a day before meals and bedtime Consistent carbohydrate diet. Continue NovoLog sliding scale. Hold all oral antidiabetic medications. Ct levemir 20 units twice a day. If patient is planned for surgery tomorrow, we'll switch Levemir 10 units twice a day and change NovoLog sliding scale to Novolin NPO nothing by mouth sliding scale every 6 hourly with 50 mL of D5 half normal saline per hour 5. DVT prophylaxis Heparin subcutaneous
[2016-07-15 07:56] LABS: ABSOLUTE BASOPHIL COUNT 0 /CUMM (0.0-0.2); ABSOLUTE EOSINOPHIL COUNT 0.6 /CUMM (0.0-0.7); ABSOLUTE GRANULOCYTE CT 8.2 /CUMM (1.4-6.5); ABSOLUTE LYMPH COUNT 1.8 /CUMM (1.2-3.4); BASOPHIL % 0.4 % (0.0-2.0); EOSINOPHIL % 5.2 % (0-5); GRANULOCYTE % 70.6 % (42.2-75.2); HEMATOCRIT 35.7 % (42-52); MEAN CORPUSCULAR HGB 29.3 PG (27.0-31.0); MEAN CORPUSCULAR HGB CONC 33.9 G/DL (33.0-37.0); MEAN CORPUSCULAR VOLUME 86.5 FL (80.0-94.0); MEAN PLATELET VOLUME 8.4 FL (7.4-10.4); PLATELET COUNT 334 /CUMM (130-400); RBC DISTRIBUTION WIDTH 14.8 % (11.5-14.5); RED BLOOD CELL CT 4.13 /CUMM (4.70-6.10); WHITE BLOOD CELL COUNT 11.7 /CUMM (4.8-10.8)
[2016-07-15 08:07] VITALS: BP 144/86
--- NOTE | 2016-07-15 08:34 | PN- Student ---
Subjective Subjective: IP Day #3 for 45yo male with PMH significant for uncontrolled insulin dependent DM s/p amputation, osteomyelitis, sepsis, and HTN being treated IP on IV Unasyn for osteomyelitis in four bones in the R ankle awaiting surgical debridement and possible BKA. Pt is off telemetry monitoring. Per nursing, no overnight events. Pt is resting comfortably in bed, no concerns. Pt states he saw Dr. Dowd who told him BKA was in consideration and he is "at peace" with the decision. Pt states he has spoken to the chaplains. Denies fever/chills. Denies CP/SOB. Denies abd pain/nausea/vomiting/diarrhea. Denies pain in the R lower extremity. Objective Objective: Physical Exam: Vital Signs Date Time Temp Pulse Resp B/P B/P Pulse O2 O2 Flow FiO2 Mean Ox Delivery Rate 07/15 0807 97.8 90 18 144/86 96 Room Air 07/15 0057 98.3 91 18 142/68 95 Room Air 07/14 1652 150/70 07/14 1530 98.1 94 18 108/82 98 Room Air Gen: obese male, resting in bed, NAD CV: S1S2, no murmurs/rubs/gallops Lungs: CTABL, increased WOB after rolling to the left side for exam Abd: obese abdomen, ND, +bowel sounds, NT Skin: warm, dry Neuro: AAOx4 Psych: "at peace", pt states he has been talking to chaplains at which improves his mood Results Results: Laboratory Tests 07/15/16 0614: Anion Gap 10, Estimated GFR > 60, BUN/Creatinine Ratio 18.0, Glucose 212 H, CBC w Diff NO MAN DIFF REQ, RBC 4.13 L, MCV 86.5, MCH 29.3, RDW 14.8 H, MPV 8.4, Gran % 70.6, Lymphocytes % 15.2 L, Monocytes % 8.6, Eosinophils % 5.2 H, Basophils % 0.4, Absolute Granulocytes 8.2 H, Absolute Lymphocytes 1.8, Absolute Monocytes 1.0 H, Absolute Eosinophils 0.6, Absolute Basophils 0, PUBS MCHC 33.9 07/14/16 0415: Troponin I < 0.01 07/14/16 0415: Anion Gap 10, Estimated GFR > 60, BUN/Creatinine Ratio 26.0 H, Phosphorus 4.0, Magnesium 1.8, CBC w Diff NO MAN DIFF REQ, RBC 3.99 L, MCV 86.9, MCH 28.7, RDW 14.5, MPV 7.9, Gran % 72.6, Lymphocytes % 14.7 L, Monocytes % 9.0, Eosinophils % 3.4, Basophils % 0.3, Absolute Granulocytes 9.8 H, Absolute Lymphocytes 2.0, Absolute Monocytes 1.2 H, Absolute Eosinophils 0.5, Absolute Basophils 0, PUBS MCHC 33.0 Microbiology 07/13 2309 URINE ROUT: Urine Culture - RES 07/13 1400 BLOOD: Blood Culture - RES 07/13 1354 BLOOD: Blood Culture - RES Assessment/Plan Assessment: IP Day #3 for 45yo male with PMH significant for uncontrolled insulin dependent DM s/p amputation, osteomyelitis, sepsis, and HTN being treated IP on Unasyn for osteomyelitis in four bones in the R ankle awating surgical debridement and possible BKA. WBC continue to decline on Unasyn. Blood cultures and urine cultures remain negative. Pt remains afebrile and vital signs stable. Concern of cardiac involvement resolved. Pt removed from telemetry monitoring. Awaiting vasular surgery consult and plan. Plan: #1 R Ankle osteomyelitis/cellulitis: -follow note from Dr. Dowd -consult vascular surgery -continue IV Unasyn per ID -continue to monitor for SIRS/sepsis -recheck CBC/blood cultures tomorrow -wound care #2 emotional stress: -consult psych -continue field counsel with chaplains Microbiology 07/13 2309 URINE ROUT: Urine Culture - RES 07/13 1400 BLOOD: Blood Culture - RES 07/13 1354 BLOOD: Blood Culture - RES Assessment/Plan Assessment: IP Day #3 for 45yo male with PMH significant for uncontrolled insulin dependent DM s/p amputation, osteomyelitis, sepsis, and HTN being treated IP on Unasyn for osteomyelitis in four bones in the R ankle awating surgical debridement and possible BKA. WBC continue to decline on Unasyn. Blood cultures and urine cultures continue to be negative. Pt remains afebrile and vital signs stable. Possible issue of cardiac involvement resolved. Pt removed from telemetry monitoring. Awaiting vasular surgery consult and plan. Plan: Plan: #1 R Ankle osteomyelitis/cellulitis: -follow note from Dr. Dowd -consult vascular surgery -continue Unasyn per ID -continue to monitor for SIRS/sepsis -recheck CBC/blood cultures tomorrow -wound care #2 emotional stress: -consult psych -continue field counsel with chaplains
--- NOTE | 2016-07-15 09:56 | PN- Housestaff ---
ANNETTE FIGUEROA 07/15/16 0937: Subjective Follow-up For: Right ankle osteomyelitis and cellulitis Subjective: No overnight events. This morning patient was alert, awake and oriented. His vitals are stable. He is complaining of right leg pain at the site of skin graft. Denies any chest pain, breathing difficulty, palpitations. Review of Systems Constitutional: Reports: see HPI. Objective Last 24 Hrs of Vital Signs/I&O Vital Signs Date Time Temp Pulse Resp B/P B/P Pulse O2 O2 Flow FiO2 Mean Ox Delivery Rate 07/15 0807 97.8 90 18 144/86 96 Room Air 07/15 0057 98.3 91 18 142/68 95 Room Air 07/14 1652 150/70 07/14 1530 98.1 94 18 108/82 98 Room Air Intake & Output 07/15 1600 07/15 0800 07/15 0000 Intake Total 100 370 Output Total 700 500 Balance -600 -130 Intake, IV 100 130 Intake, Oral 240 Number 1 Bowel Movements Output, Urine 700 500 Physical Exam General Appearance: Alert, Oriented X3, Cooperative, No Acute Distress Neck: Supple Cardiovascular: Regular Rate, No Murmurs Lungs: Clear to Auscultation Abdomen: Normal Bowel Sounds, Soft, No Tenderness Neurological: Normal Speech, Cranial Nerves 3-12 NL Extremities: RIGHT LEG BANDAGE INTACT. NO SENSATIONS RIGHT FOOT. LEFT LEG CHRONIC VENOUS STASIS CHANGES. POOR LEFT FOOT HYGIENE. Current Medications: Current Medications Sig/Angela Start time Last Medication Dose Route Stop Time Status Admin Acetaminophen 650 MG Q6P PRN 07/13 1930 AC PO Ampicillin Sodium/ 3,000 MG Q6H 07/14 0200 AC 07/15 Sulbactam Sodium IV 0755 Sodium Chloride 100 ML Atorvastatin Calcium 20 MG 1700 07/13 1733 AC 07/14 PO 1653 Dextrose/Sodium 1,000 ML Q13H 07/14 0230 DC 07/14 Chloride IV 0352 Docusate Sodium 100 MG DAILY NEEDED PRN 07/15 0100 AC PO Enoxaparin Sodium 40 MG DAILY 07/13 1725 DC 07/13 SC 2008 Heparin Sodium 5,000 UNIT Q8 07/14 1439 AC 07/15 (Porcine) SC 0612 Insulin Aspart 0 TIDAC 07/14 1700 AC 07/15 SC 0755 Insulin Detemir 20 UNITS BID 07/14 2200 AC 07/14 SC 2119 Insulin Detemir 10 UNITS BID 07/14 1000 DC [place] Insulin Detemir 20 UNITS BID 07/13 2327 DC 07/13 OH 2341 Insulin Human Regular 0 Q6 07/14 0228 DC 07/14 [place] 0658 Lisinopril 20 MG DAILY 07/14 1434 AC 07/14 PO 1652 Oxycodone HCl 5 MG Q6H 07/13 1930 AC 07/14 PO 0233 Oxycodone/ 2 TAB Q6P PRN 07/13 1929 AC Acetaminophen PO Patient Medication 1 ED .STK-MED ONE 07/14 1401 ID Teaching ED 07/14 1402 Last 24 Hrs of Lab/Ramin Results Last 24 Hrs of Labs/Mics: Laboratory Tests 07/15/16 0614: Anion Gap 10, Estimated GFR > 60, BUN/Creatinine Ratio 18.0, Glucose 212 H, CBC w Diff NO MAN DIFF REQ, RBC 4.13 L, MCV 86.5, MCH 29.3, RDW 14.8 H, MPV 8.4, Gran % 70.6, Lymphocytes % 15.2 L, Monocytes % 8.6, Eosinophils % 5.2 H, Basophils % 0.4, Absolute Granulocytes 8.2 H, Absolute Lymphocytes 1.8, Absolute Monocytes 1.0 H, Absolute Eosinophils 0.6, Absolute Basophils 0, PUBS MCHC 33.9 Assessment/Plan Assessment: This is 45 year old male with past medical history of diabetes who was treated for right lower extremity osteomyelitis/infected right foot plantar ulcer requiring amputation of right great toe s/p 4 weeks course of IV Unasyn with placement of wound VAC. Problem list #1 Acute osteomyelitis right foot. on IV unasyn. Afebrile since admission. WBC count trended down to 11.7 today. #2 lightheadedness/dizziness. Most likely vasovagal. Troponins [address]-T wave changes #3 history of hypertension. On lisinopril. Holding amlodipine for now #4 history of diabetes mellitus. Holding metformin, Januvia. PLAN * Monitor vitals closely * Continue IV Unasyn per ID * Awaiting podiatry and vascular surgery consult * Blood cultures 2 negative to date * Restart amlodipine if blood pressure rises * Continue insulin Levemir and NovoLog sliding scale * Accu-Cheks before each meal and at bedtime * Adequate pain management * DVT prophylaxis: Subcutaneous Lovenox * Patient is full code Problem List: 1. Osteomyelitis Pain Ratin Pain Location: Right leg Pain Goal: Pain 4 or less Pain Plan: percocet Tomorrow's Labs & Rationales: cbc DVT/Prophylaxis: pharmacological STANFORD PERKINS,MEREDITH 07/15/16 1325: Attending MD Review Statement Attending Statement Attending MD Statement: examined this patient, discuss w/resident/PA/ELEVATOR SERVICE TECHNICIAN, agreed w/resident/PA/ELEVATOR SERVICE TECHNICIAN, discussed with family, reviewed EMR data (avail), discussed with nursing, discussed with case mgmt, reviewed images, amended to note Attending Assessment/Plan: Patient seen and examined, feeling overall better. He is not as depressed and sad as he was yesterday. He did speak with the pit worker power shovel and is awaiting psychiatry evaluation. Hemodynamically stable. Labs reviewed and his hemoglobin A1c has improved compared to before. A/P; patient is 45 year old male with past medical history of diabetes who was treated for right lower extremity osteomyelitis/infected right foot plantar ulcer status post first ray resection and I&D in May 2016 with 4 weeks course of IV Unasyn, with wound VAC who was returned from [facility] for routine evaluation of his wound found to be lightheaded in setting of sepsis, was evaluated in ER with MRI of right foot suggesting osteomyelitis involving the talus and calcaneus. Currently getting treated with IV Unasyn. Awaiting vascular surgery as well as podiatry consult and coordination for the timings of surgery. Blood sugars are running in acceptable range. Seen by psychiatry and no medications were recommended but they recommended giving support. DVT px: Lovenox
--- NOTE | 2016-07-15 12:26 | PN- Infect Dx ---
Subjective Subjective: Afebrile without complaints Objective Last 24 Hrs of Vital Signs/I&O Vital Signs Date Time Temp Pulse Resp B/P B/P Pulse O2 O2 Flow FiO2 Mean Ox Delivery Rate 07/15 1053 92 148/70 07/15 0807 97.8 90 18 144/86 96 Room Air 07/15 0057 98.3 91 18 142/68 95 Room Air 07/14 1652 150/70 07/14 1530 98.1 94 18 108/82 98 Room Air Intake & Output 07/15 1600 07/15 0800 07/15 0000 Intake Total 100 370 Output Total 700 500 Balance -600 -130 Intake, IV 100 130 Intake, Oral 240 Number 1 Bowel Movements Output, Urine 700 500 Physical Exam Other Physical Findings: He appears comfortable in no acute distress Extremities right foot dressing intact Results Last 24 Hours of Lab Results: Laboratory Tests 07/15 0614 Chemistry Sodium (137 - 145 mmol/L) 139 Potassium (3.5 - 5.1 mmol/L) 4.0 Chloride (98 - 107 mmol/L) 100 Carbon Dioxide (22 - 30 mmol/L) 30 Anion Gap (5 - 16) 10 BUN (9 - 20 mg/dL) 9 Creatinine (0.7 - 1.2 mg/dL) 0.5 L Estimated GFR (>60 ml/min) > 60 BUN/Creatinine Ratio (7 - 25 %) 18.0 Glucose (65 - 99 mg/dL) 212 H Hematology CBC w Diff NO MAN DIFF REQ WBC (4.8 - 10.8 /CUMM) 11.7 H RBC (4.70 - 6.10 /CUMM) 4.13 L Hgb (14.0 - 18.0 G/DL) 12.1 L Hct (42 - 52 %) 35.7 L MCV (80.0 - 94.0 FL) 86.5 MCH (27.0 - 31.0 PG) 29.3 RDW (11.5 - 14.5 %) 14.8 H Plt Count (130 - 400 /CUMM) 334 MPV (7.4 - 10.4 FL) 8.4 Gran % (42.2 - 75.2 %) 70.6 Lymphocytes % (20.5 - 51.1 %) 15.2 L Monocytes % (1.7 - 9.3 %) 8.6 Eosinophils % (0 - 5 %) 5.2 H Basophils % (0.0 - 2.0 %) 0.4 Absolute Granulocytes (1.4 - 6.5 /CUMM) 8.2 H Absolute Lymphocytes (1.2 - 3.4 /CUMM) 1.8 Absolute Monocytes (0.10 - 0.60 /CUMM) 1.0 H Absolute Eosinophils (0.0 - 0.7 /CUMM) 0.6 Absolute Basophils (0.0 - 0.2 /CUMM) 0 PUBS MCHC (33.0 - 37.0 G/DL) 33.9 Last 24 Hours of Ramin Results: Blood cultures 2 July 13 negative Urine culture July 13 negative Assessment/Plan Impression: Improved with temperatures remaining normal and white blood cell count decreasing on empiric treatment with Unasyn Day 2 for osteomyelitis of the left foot and heel noted on the recent MRI. He was evaluated by Podiatry last evening, who recommends a right BKA, which will be done by Vascular surgery. Suggestion: 1. Await Vascular surgery evaluation 2. Continue Unasyn
--- NOTE | 2016-07-15 13:24 | Cons- Psychiatry ---
Psychiatric Consult Date of Consult: 07/15/16 Reason for Consult: "Depression due to ongoing medical issues" Ordered by Dr. Prosper Love History of Present Illness: Identifying Info: 45-year-old single male presents to [facility] emergency department 07/13/2016 post near syncopal episode at wound care center. Subsequently admitted to medicine. CC: "I was not in the greatest state of mind." HPI: Patient reports he has been in healthcare facilities for the past 2 months. He was discharged from [facility] in May of this year to [facility] where he was receiving on the ongoing care for issues surrounding a long-standing nonhealing ulceration to his right foot. The patient has a long-standing history of diabetes that has been poorly controlled. The patient states throughout this time " I was feeling useless... I haven't really walked in about 2-1/2 months." Since his loss of a job. 4 years ago and his inability to obtain employment he has felt he was a burden on his family and friends. He reports that much of this came to ahead yesterday when he was feeling quite low, "very depressed and sad." He was concerned about his future medical care and how it might impact his quality of life. The patient reports once he found out yesterday he will likely be having an amputation he felt "a sense of peace... There is an end game and I know what it means and what it will take to stop this infection." He is recognized how "great a support system" he has in his family, friends, and fianc. He also states that he spoke with lozenge dough mixer here at the hospital which he found very helpful. PMH: Please see the H&P for a complete listing Hypertension, uncontrolled type 2 diabetes, long standing ulceration of plantar aspect of right foot, first metatarsal osteomyelitis ( Tx w/ Unasyn 05/15-06/05) s /p skin graft 06/27, ulcer near the achilis tendon ( s/p debridement ) Past Psych History: -Outpatient None -Inpatient One previous evaluation by consult service at [facility] in May of this year, Lexapro was recommended but was not started. Family Psych History: Denies Substance History Denies tobacco or illicit substances, infrequent alcohol use -Treatment Denies Family Substance History: Denies Social: Lives in a studio apartment with his fiance. No children. 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 Abuse/Trauma: Denies trauma history Current Home Psychotropic Medications: None Current Hospital Psychotropic Medications: None Allergies: Coded Allergies: cephalexin (From KEFLEX) (Intermediate, HIVES 04/29/16) adhesive (Mild, IRRITATION 04/29/16) Current Medications: Current Medications Sig/Angela Start time Last Medication Dose Route Stop Time Status Admin Acetaminophen 650 MG Q6P PRN 07/13 1930 AC PO Ampicillin Sodium/ 3,000 MG Q6H 07/14 0200 AC 10 Sulbactam Sodium IV 0755 Sodium Chloride 100 ML Atorvastatin Calcium 20 MG 1700 07/13 1733 AC 07/14 PO 1653 Docusate Sodium 100 MG DAILY NEEDED PRN 07/15 0100 AC PO Enoxaparin Sodium 40 MG DAILY 07/15 1000 AC 07/15 SC 1107 Enoxaparin Sodium 40 MG DAILY 07/13 1725 DC 07/13 SC 2008 Heparin Sodium 5,000 UNIT Q8 07/14 1439 DC 07/15 (Porcine) SC 0612 Insulin Aspart 0 TIDAC 07/14 1700 AC 07/15 SC 1234 Insulin Detemir 20 UNITS BID 07/14 2200 AC 07/15 SC 1054 Lisinopril 20 MG DAILY 07/14 1434 AC 07/15 PO 1053 Oxycodone HCl 5 MG Q6H 07/13 1930 DC 07/14 PO 0233 Oxycodone/ 2 TAB Q6P PRN 07/13 1930 AC Acetaminophen PO Patient Medication 1 ED .STK-MED ONE 07/14 1401 DC Teaching ED 07/14 1402 Past History Past Medical History Neurological: NONE EENT: NONE Cardiovascular: hypertension, hyperlipidemia Respiratory: NONE Gastrointestinal: C. difficile Hepatic: NONE Renal: NONE Musculoskeletal: NONE Psychiatric: NONE (Denies) Endocrine: diabetes, obesity Blood Disorders: NONE Cancer(s): NONE MDM DEVELOPER/Reproductive: NONE Past Surgical History Surgical History: appendectomy, status post I&D of a posterior neck abscess L SHOULDER SX R GREAT TOE AMPUTATION status post right great toe amputation 04/24 Psychosocial History Strengths/Capabilities: Strong support system, hopeful and motivated for the future Physical Limitations (Interventions): Likely amputation, poorly controlled medical illness Psychiatric Treatment History Psych Treatment Psychiatric Treatment No Diagnosis: Unspecified depressive disorder Risk Factors: chronic/serious med cond., male Substance Use/Abuse History Drug Use/Abuse Substances Used/Abused No Substance Abuse Treatment Substance Abuse Treatment Past Substance Abuse [place] No Assessment/Plan Mental Status Mental Status Exam: Presentation/Appearance: Cooperative with evaluation. Hospital garb. Lying in bed Orientation: x4 Sensorium: Awake and alert Eye contact: Appropriate Affect: Full range congruent with stated mood Mood: "Anxious but good" Depression: Denies at present, endorses recent depression Anxiety: Endorses r/t future tx but feels is manageable Thought Content: - Denies SI/HI, AH/VH, PI. States and also believes they will not kill themselves. - Denies Hopeless/Helpless Thoughts Thought Process: Linear, goal directed Associations: Appropriate Speech: Normal tone and rate Judgment: Intact Insight: Intact Cognition: Memory: Grossly intact Attention/Concentration: Grossly intact Fund of Knowledge: Adequate Abstractions: Did not assess MMSE: Did not assess Brief ROS Gait: Impaired Sleep: Adequate Appetite: Adequate Energy: Adequate IADLs/ADLs: With assisst At present the patient declines a trial of psychotropic meds but states he may be interested in the future. Lab Results: Laboratory Tests 07/15/16 0614: Anion Gap 10, Estimated GFR > 60, BUN/Creatinine Ratio 18.0, Glucose 212 H, CBC w Diff NO MAN DIFF REQ, RBC 4.13 L, MCV 86.5, MCH 29.3, RDW 14.8 H, MPV 8.4, Gran % 70.6, Lymphocytes % 15.2 L, Monocytes % 8.6, Eosinophils % 5.2 H, Basophils % 0.4, Absolute Granulocytes 8.2 H, Absolute Lymphocytes 1.8, Absolute Monocytes 1.0 H, Absolute Eosinophils 0.6, Absolute Basophils 0, PUBS MCHC 33.9 07/14/16 0415: Troponin I < 0.01 07/14/16414: Anion Gap 10, Estimated GFR > 60, BUN/Creatinine Ratio 26.0 H, Phosphorus 4.0, Magnesium 1.8, CBC w Diff NO MAN DIFF REQ, RBC 3.99 L, MCV 86.9, MCH 28.7, RDW 14.5, MPV 7.9, Gran % 72.6, Lymphocytes % 14.7 L, Monocytes % 9.0, Eosinophils % 3.4, Basophils % 0.3, Absolute Granulocytes 9.8 H, Absolute Lymphocytes 2.0, Absolute Monocytes 1.2 H, Absolute Eosinophils 0.5, Absolute Basophils 0, PUBS MCHC 33.0 07/13/162309: Urinalysis MOD H, Urine Color YEL, Urine Clarity CLEAR, Urine pH 6.0, Ur Specific [place] 1.025, Urine Protein TRACE H, Urine Ketones NEG, Urine Nitrite NEG, Urine Bilirubin NEG, Urine Urobilinogen 0.2, Ur Leukocyte Esterase NEG, Ur Microscopic SEDIMENT EXAMINED, Urine RBC 1-3, Urine WBC RARE, Ur Epithelial Cells FEW, Hyaline Casts 3-5 H, Urine Mucus MANY H, Urine Hemoglobin TRACE H, Urine Glucose NEG 07/13/16 2208: Troponin I < 0.01 07/13/16 220: Lactic Acid 1.2 07/13/16 1732: Lactic Acid 2.6 H 07/13/16 1354: Anion Gap 13, Estimated GFR > 60, BUN/Creatinine Ratio 20.0, Glucose 212 H, Lactic Acid 2.7 H, Calcium 9.5, Total Bilirubin 0.9, AST 14 L, ALT 29, Alkaline Phosphatase 48, Troponin I < 0.01, Total Protein 7.7, Albumin 3.6, Globulin 4.1, Albumin/Globulin Ratio 0.9 L, CBC w Diff MAN DIFF ORDERED, RBC 4.33 L, MCV 86.1, MCH 29.7, RDW 14.6 H, MPV 8.0, Gran % 80.2 H, Lymphocytes % 10.1 L, Monocytes % 7.3, Eosinophils % 2.0, Basophils % 0.4, Absolute Granulocytes 15.6 H, Segmented Neutrophils 82 H, Band Neutrophils 3, Absolute Lymphocytes 2.0, Lymphocytes 10 L, Monocytes 5, Absolute Monocytes 1.4 H, Absolute Eosinophils 0.4, Absolute Basophils 0.1, Platelet Estimate ADEQUATE, Normocytic RBCs VERIFIED, Normochromic RBCs VERIFIED, PUBS MCHC 34.5 Microbiology 07/13 2310 URINE ROUT: Urine Culture - COMP 07/13 1400 BLOOD: Blood Culture - RES 07/13 1354 BLOOD: Blood Culture - RES Diffential Diagnosis: Rule out adjustment disorder Rule out depressive disorder due to another medical condition Impression: 45-year-old single male presents with sadness and anxiety related to chronic medical problems. He now endorses relief from these symptoms due to having a strong understanding of the future plan of care is going to be. Additionally he feels well supported by family and friends which he feels gives him strength for his future treatment. At present he declined psychotropic intervention would consider in the future. However if his mood remains stable he will likely not require it. Provisional Treatment Plan: 1. No psychotropics at this time, however if he does require or request medication in the future would recommend an agent that is weight neutral, for example, Wellbutrin. 2. Recommend continued support from pastoral care as patient received great benefit from this. Please order pastoral consult. 3. Recommend utilization of alternative therapies available in hospital including aroma, animal and music therapy. Thank you for including psychiatry in this case we will continue to follow on an as needed basis.
[2016-07-15 16:33] VITALS: BP 138/80
--- NOTE | 2016-07-15 19:11 | Cons- Vascular Surgery ---
General Information and HPI Consulting Request Date of Consult: 07/15/16 Requested By: MEREDITH COYNE MD Reason for Consult: Need for proximal BKA Source of Information: patient, family, old records Exam Limitations: no limitations History of Present Illness: This is a 45-year-old man with diabetes and multiple hospital visits and several returns to the OR for revisional first ray resection and I&D of a retrocalcaneal abscess, treated with antibiotics x 1 year as well. On this admission he was afebrile. Laboratory data revealed a white blood cell count of 19,000, glucose 212, BUN/creatinine 18 and 0.9, lactic acid 2.7. Urinalysis 1-3 RBC/rare WBCs. MRI of the right ankle revealed osteomyelitis involving the talus and calcaneus as well as, possibly, the navicula and cuboid. He was begun on Unasyn. He has remained afebrile overnight. He does note pain on examination of the foot but is otherwise without complaints. Here to discuss BKA. Pt. is without complaint fo claudication/vascular disease. Allergies/Medications Allergies: Coded Allergies: cephalexin (From KEFLEX) (Intermediate, HIVES 04/29/16) adhesive (Mild, IRRITATION 04/29/16) Home Med List: Amlodipine Besylate 5 MG TABLET 1 TAB PO DAILY HTN (Reported) Insulin Detemir (Levemir Flextouch) 100 UNIT/ML (3 ML) INSULN.PEN 20 U SC BID DIABETES (Reported) Lisinopril 40 MG TABLET 1 TAB PO DAILY HTN (Reported) Lovastatin 20 MG TABLET 1 TAB PO DAILY cholesterol (Reported) Metformin HCl 500 MG TABLET 1 TAB PO BID DM II (Reported) Sitagliptin Phosphate (Januvia) 100 MG TABLET 1 TAB PO DAILY DM II (Reported) Current Medications: Current Medications Sig/Angela Start time Last Medication Dose Route Stop Time Status Admin Acetaminophen 650 MG Q6P PRN 07/13 1930 AC PO Ampicillin Sodium/ 3,000 MG Q6H 07/14 0200 AC 05/10 Sulbactam Sodium IV 1409 Sodium Chloride 100 ML Atorvastatin Calcium 20 MG 1700 07/13 1733 AC 05/10 PO 1732 Docusate Sodium 100 MG DAILY NEEDED PRN 07/15 0100 AC PO Enoxaparin Sodium 40 MG DAILY 07/15 1000 AC 05/10 SC 1107 Guaifenesin 10 ML Q6P PRN 07/15 1400 AC 07/15 PO 1409 Heparin Sodium 5,000 UNIT Q8 07/14 1439 DC 07/15 (Porcine) SC 0612 Insulin Aspart 0 TIDAC 07/14 1700 AC 07/15 SC 1732 Insulin Detemir 20 UNITS BID 07/14 2200 AC 07/15 SC 1054 Lisinopril 20 MG DAILY 07/14 1434 AC 07/15 PO 1053 Oxycodone HCl 5 MG Q6H 07/13 193 DC 07/14 PO 0233 Oxycodone/ 2 TAB Q6P PRN 07/13 1929 AC Acetaminophen PO Past History Medical History Blood Transfusion Hx: No Neurological: NONE EENT: NONE Cardiovascular: hypertension, hyperlipidemia Respiratory: NONE Gastrointestinal: C. difficile Hepatic: NONE Renal: NONE Musculoskeletal: NONE Psychiatric: NONE (Denies) Endocrine: diabetes, obesity Blood Disorders: NONE Cancer(s): NONE CRABBER/Reproductive: NONE Surgical History Pertinent Surgical History: appendectomy, status post I&D of a posterior neck abscess L SHOULDER SX R GREAT TOE AMPUTATION status post right great toe amputation 04/24 Family History Relations & Conditions If Any: FATHER (coronary artery disease-status post angioplasty and stents). MOTHER (diverticulitis). BROTHER (diabetes). Relation not specified for: FH: diabetes mellitus Psychosocial History Services at Home: None Smoking Status: Never Smoked ETOH Use: denies use Illicit Drug Use: denies illicit drug use Functional Ability ADLs Independent: dressing, eating, toileting, bathing. Review of Systems Review of Systems: Complains of pain a wound site. Otherwise no complaints Exam & Diagnostic Data Vital Signs and I&O Vital Signs Date Time Temp Pulse Resp B/P B/P Pulse O2 O2 Flow FiO2 Mean Ox Delivery Rate 07/15 1633 98.2 85 16 138/80 97 Room Air 07/15 1053 92 148/70 07/15 0807 97.8 90 18 144/86 96 Room Air 07/15 0057 98.3 91 18 142/68 95 Room Air Intake & Output 07/15 1600 07/15 0800 07/15 0000 07/14 1600 07/14 0800 07/14 0000 Intake Total 1200 100 370 200 0 Output Total 650 700 500 350 750 760 Balance 550 -600 -130 -350 -550 -760 Intake, IV 100 130 200 Intake, Oral 1200 240 0 0 Number 1 Bowel Movements Output, Urine 650 700 500 350 750 760 Patient 279 lb Weight Weight Reported by Patient Measurement Method Physical Exam: Ext: Palp DP pulse, pus drains on expression of wound, mild tenderness Physical Exam General Appearance: well developed/nourished, no apparent distress, alert, awake Extremities: normal capillary refill, inflammation, swelling, tenderness Assessment/Plan Assessment/Plan Diabetes with multiple infection and bony involvement 1.) Pt. is requesting durther proximal amputation "To get on with my life." He does not wish for 2nd opinion 2.) Likely will require 2-stage operation due to degree of infection 3.) Medical/Cardiac clearence 4.) Cont. medical care/wound car and antibiotics now Copies To: TERRY MALAGON DPM Consult Acknowledgment - Thank you for your consult request. Attending MD Review Statement Attending Statement Attending MD Statement: examined this patient
[2016-07-15 22:36] VITALS: BP 146/88
[2016-07-16 05:05] LABS: ABSOLUTE BASOPHIL COUNT 0 /CUMM (0.0-0.2); ABSOLUTE EOSINOPHIL COUNT 0.7 /CUMM (0.0-0.7); ABSOLUTE LYMPH COUNT 1.9 /CUMM (1.2-3.4); ABSOLUTE MONOCYTE COUNT 1.2 /CUMM (0.10-0.60); BASOPHIL % 0.3 % (0.0-2.0); EOSINOPHIL % 5.2 % (0-5); GRANULOCYTE % 70.3 % (42.2-75.2); HEMATOCRIT 35.5 % (42-52); MEAN CORPUSCULAR HGB CONC 33.3 G/DL (33.0-37.0); MEAN CORPUSCULAR VOLUME 87.1 FL (80.0-94.0); MEAN PLATELET VOLUME 8.2 FL (7.4-10.4); PLATELET COUNT 326 /CUMM (130-400); RBC DISTRIBUTION WIDTH 14.7 % (11.5-14.5); RED BLOOD CELL CT 4.07 /CUMM (4.70-6.10); WHITE BLOOD CELL COUNT 12.8 /CUMM (4.8-10.8)
[2016-07-16 05:15] LABS: PT 13.3 SEC (9.4-12.5); PTT 33 SEC (25-37)
--- NOTE | 2016-07-16 07:50 | PN- Student ---
Subjective Subjective: IP Day #4 for 45yo male with complicated PMH significant for >10yr uncontrolled insulin dependent DM s/p R great toe amputation, being treated IP for osteomyelitis in the R foot/ankle. On IV Unasyn since admission, and awaiting BKA. Pt has no concerns today. Pt states he spoke with Dr. Harrison yesterday and confirmed the plan is BKA. Pt NPO. Denies fever/chills. Denies CP/SOB. Denies abd pain/nausea/vomiting/diarrhea. Current Medications Sig/Angela Start time Last Medication Dose Route Stop Time Status Admin Acetaminophen 650 MG Q6P PRN 07/13 193 AC PO Ampicillin Sodium/ 3,000 MG Q6H 07/14 0200 AC 07/16 Sulbactam Sodium IV 0236 Sodium Chloride 100 ML Atorvastatin Calcium 20 MG 1700 07/13 1733 AC 07/15 PO 1732 Benzonatate 100 MG TIDPRN PRN 07/15 2215 AC 07/16 PO 0236 Docusate Sodium 100 MG DAILY NEEDED PRN 07/15 0100 AC PO Enoxaparin Sodium 40 MG DAILY 07/15 1000 AC 07/15 SC 1107 Guaifenesin 10 ML Q6P PRN 07/15 1400 AC 07/16 PO 0236 Heparin Sodium 5,000 UNIT Q8 07/14 1439 DC 07/15 (Porcine) SC 0612 Insulin Aspart 0 TIDAC 07/14 1700 DC 07/15 SC 1732 Insulin Detemir 10 UNITS BID 07/15 2200 AC 07/15 SC 2042 Insulin Detemir 20 UNITS BID 07/14 2200 DC 07/15 SC 1054 Insulin Human Regular 4 UNITS .STK-MED ONE 07/16 0025 DC IV 07/16 0026 Insulin Human Regular 0 Q6 07/15 1930 AC 07/16 SC 0551 Lisinopril 20 MG DAILY 07/14 1434 AC 07/15 PO 1053 Nystatin 1 DANIELLE Q6 07/16 0633 AC TOP Oxycodone HCl 5 MG Q6H 07/13 1930 DC 07/14 PO 0233 Oxycodone/ 2 TAB Q6P PRN 07/13 1930 AC 07/16 Acetaminophen PO 0320 Sodium Chloride 1,000 ML Q13H 07/16 0800 AC IV 07/16 2058 Objective Objective: PHYSICAL EXAM Vital Signs Date Time Temp Pulse Resp B/P B/P Pulse O2 O2 Flow FiO2 Mean Ox Delivery Rate 07/16 817 97.7 78 18 150/90 98 07/15 2236 97.0 90 18 146/88 98 Room Air 07/15 1633 98.2 85 16 138/80 97 Room Air 07/15 1053 92 148/70 Gen: obese male resting comfortably in bed CV: S1S2, RRR, no m/r/g Pulm: CTABL, exam limited, pt able to roll to the left only, poor inspiratory effort Abd: obese abdomen, ND, +BS, soft, NT Ext: R lower extremity wound wrapped by vascular surgery Results Results: Laboratory Tests 07/16/16 0415: PT 13.3 H, INR 1.27 H, APTT 33, CBC w Diff NO MAN DIFF REQ, RBC 4.07 L, MCV 87.1, MCH 29.0, RDW 14.7 H, MPV 8.2, Gran % 70.3, Lymphocytes % 15.1 L, Monocytes % 9.1, Eosinophils % 5.2 H, Basophils % 0.3, Absolute Granulocytes 9.0 H, Absolute Lymphocytes 1.9, Absolute Monocytes 1.2 H, Absolute Eosinophils 0.7, Absolute Basophils 0, PUBS MCHC 33.3 07/15/16 0614: Anion Gap 10, Estimated GFR > 60, BUN/Creatinine Ratio 18.0, Glucose 212 H, CBC w Diff NO MAN DIFF REQ, RBC 4.13 L, MCV 86.5, MCH 29.3, RDW 14.8 H, MPV 8.4, Gran % 70.6, Lymphocytes % 15.2 L, Monocytes % 8.6, Eosinophils % 5.2 H, Basophils % 0.4, Absolute Granulocytes 8.2 H, Absolute Lymphocytes 1.8, Absolute Monocytes 1.0 H, Absolute Eosinophils 0.6, Absolute Basophils 0, PUBS MCHC 33.9 Microbiology 07/13 2310 URINE ROUT: Urine Culture - COMP 07/13 1400 BLOOD: Blood Culture - RES 07/13 1354 BLOOD: Blood Culture - RES Assessment/Plan Assessment: IP Day #4 for 45yo male with complicated PMH significant for >10yr uncontrolled insulin dependent DM s/p R great toe amputation, being treated IP for osteomyelitis in the R foot/ankle. On IV Unasyn since admission, and awaiting 2 stage BKA per vascular surgery. Pt was seen by vascular surgery. Two stage BKA is planned, date undetermined. Plan: -NPO pending possible procedure -NS maintenance fluids -continue IV Unasyn per ID -continue home meds -continue wound care -BKA pending vascular -obtain pre-surgery clearance
[2016-07-16 08:18] VITALS: BP 150/90
--- NOTE | 2016-07-16 09:13 | PN- Housestaff ---
ANNETTE FIGUEROA 07/16/16 0912: Subjective Follow-up For: Right ankle osteomyelitis and cellulitis Subjective: No overnight events. He was seen by vascular yesterday night. According to patient he is going for surgery tomorrow and then again on Wednesday. Currently he offers no complaints. He was made nothing by mouth last night starting midnight for anticipation of any surgical procedure. Review of Systems Constitutional: Reports: see HPI. Objective Last 24 Hrs of Vital Signs/I&O Vital Signs Date Time Temp Pulse Resp B/P B/P Pulse O2 O2 Flow FiO2 Mean Ox Delivery Rate 07/16 08 97.7 78 18 150/90 98 07/15 2236 97.0 90 18 146/88 98 Room Air 07/15 1633 98.2 85 16 138/80 97 Room Air 07/15 1053 92 148/70 Intake & Output 07/16 1600 07/16 0800 07/16 0000 Intake Total 300 480 Output Total 600 650 Balance -300 -170 Intake, IV 150 Intake, Oral 150 480 Output, Urine 600 650 Physical Exam General Appearance: Alert, Oriented X3, Cooperative, No Acute Distress Neck: Supple Cardiovascular: Regular Rate, No Murmurs Lungs: Clear to Auscultation Abdomen: Normal Bowel Sounds, Soft, No Tenderness Neurological: Normal Speech, Cranial Nerves 3-12 NL Extremities: right leg bandage intact. Current Medications: Current Medications Sig/Angela Start time Last Medication Dose Route Stop Time Status Admin Acetaminophen 650 MG Q6P PRN 07/13 1930 AC PO Ampicillin Sodium/ 3,000 MG Q6H 07/14 0200 AC 07/16 Sulbactam Sodium IV 0829 Sodium Chloride 100 ML Atorvastatin Calcium 20 MG 1700 07/13 1733 AC 07/15 PO 1732 Benzonatate 100 MG TIDPRN PRN 07/15 2215 AC 07/16 PO 0926 Docusate Sodium 100 MG DAILY NEEDED PRN 07/15 0100 AC PO Enoxaparin Sodium 40 MG DAILY 07/15 1000 AC 07/16 SC 0927 Guaifenesin 10 ML Q6P PRN 07/15 1400 AC 07/16 PO 0926 Heparin Sodium 5,000 UNIT Q8 07/14 1439 DC 07/15 (Porcine) SC 0612 Insulin Aspart 0 TIDAC 07/16 1200 AC SC Insulin Aspart 0 TIDAC 05/09 1700 DC 07/15 SC 1732 Insulin Detemir 20 UNITS BID 07/16 1000 AC SC Insulin Detemir 10 UNITS BID 07/15 2200 DC 07/15 SC 2042 Insulin Detemir 20 UNITS BID 07/14 2200 DC 07/15 SC 1054 Insulin Human Regular 4 UNITS .STK-MED ONE 07/16 0025 DC IV 07/16 0026 Insulin Human Regular 0 Q6 07/15 1930 DC 07/16 SC 0551 Lisinopril 20 MG DAILY 07/14 1434 AC 07/16 PO 0926 Nystatin 1 DANIELLE Q6 07/16 0633 07/16 TOP 0928 Oxycodone HCl 5 MG Q6H 07/13 1930 DC 07/14 PO 0233 Oxycodone/ 2 TAB Q6P PRN 07/13 1929 AC 07/16 Acetaminophen PO 0320 Sodium Chloride 1,000 ML Q13H 07/16 0800 DC 07/16 IV 07/16 2059 0835 Last 24 Hrs of Lab/Ramin Results Last 24 Hrs of Labs/Mics: Laboratory Tests 07/16/16 0415: PT 13.3 H, INR 1.27 H, APTT 33, CBC w Diff NO MAN DIFF REQ, RBC 4.07 L, MCV 87.1, MCH 29.0, RDW 14.7 H, MPV 8.2, Gran % 70.3, Lymphocytes % 15.1 L, Monocytes % 9.1, Eosinophils % 5.2 H, Basophils % 0.3, Absolute Granulocytes 9.0 H, Absolute Lymphocytes 1.9, Absolute Monocytes 1.2 H, Absolute Eosinophils 0.7, Absolute Basophils 0, PUBS MCHC 33.3 Assessment/Plan Assessment: This is 45 year old male with past medical history of diabetes who was treated for right lower extremity osteomyelitis/infected right foot plantar ulcer requiring amputation of right great toe s/p 4 weeks course of IV Unasyn with placement of wound VAC. Problem list #1 Acute osteomyelitis right foot. on IV unasyn. Afebrile since admission. WBC count 12.8 today. #2 lightheadedness/dizziness. Most likely vasovagal. Ruled out ACS #3 history of hypertension. On lisinopril and amlodipine #4 history of diabetes mellitus. Holding metformin, Januvia. On Novolog SS and Levemir. PLAN * Monitor vitals closely * Continue IV Unasyn per ID * Awaiting podiatry consult * Plan for surgery tomorrow. Would make him NPO after midnight. will feed him today. * RCRI index--- score is 2---he has 6.6% risk of major cardiac event * Cardiac clearance today * Blood cultures 2 negative to date * Continue insulin Levemir and NovoLog sliding scale * Accu-Cheks before each meal and at bedtime * Adequate pain management * DVT prophylaxis: Subcutaneous Lovenox * Patient is full code Problem List: 1. Osteomyelitis 2. Cellulitis of right foot Pain Ratin Pain Location: right leg Pain Goal: Pain 4 or less Pain Plan: percocet Tomorrow's Labs & Rationales: cbc DVT/Prophylaxis: pharmacological Consulting Request: Consulting Specialty: Podiatry STANFORD PERKINS,[facility] 07/16/16 1349: Attending MD Review Statement Attending Statement Attending MD Statement: examined this patient, discuss w/resident/PA/VEHICLE SALES PROFESSIONAL, agreed w/resident/PA/VEHICLE SALES PROFESSIONAL, reviewed EMR data (avail), discussed with nursing, discussed with case mgmt, amended to note Attending Assessment/Plan: Patient seen and examined, feels okay. He is not feeling as depressed or anxious as he was before. Hemodynamically stable except that blood pressure is slightly high. Patient has been seen by vascular surgery and plan is to do the two-stage BKA with a first surgery scheduled for tomorrow. In the meantime he will be getting his antibiotics. Continue current regimen for his diabetes. Patient should be kept nothing by mouth after midnight tonight. He should be started on D5 half LS IV fluids with half the dose of his Levemir coverage while he is nothing by mouth.
--- NOTE | 2016-07-16 09:54 | Cons- Cardiology ---
General Information and HPI Consulting Request Date of Consult: 07/16/16 Requested By: MEREDITH COYNE MD Reason for Consult: Preop cardiac clearance Source of Information: patient Exam Limitations: no limitations History of Present Illness: Mr Wilburn is a 45 yr old man who was in his usual state of health until a few months ago. He has a PMH of hypertension, uncontrolled type 2 diabetes, first metatarsal osteomyelitis. He was brought to the ED w/ a chief concern of lightheadedness, dizziness x 1 day. As per the pt, the pt had long standing ulceration of plantar aspect of right foot, first metatarsal osteomyelitis ( Tx w/ Unasyn 05/15-06/05) s/p skin graft , ulcer near the achilis tendon ( s/p debridement ). On the day of admission, reported to have had ligheadedness when he was working with the physical therapy at [facility](acute rehab) which resolved upon rest. Reported to have had increased sweating, when he visited his crocheter and felt lightheadeded therafter; feeling of "room spinning" , felt anxious, and had nausea. Rapid response was called, and was found to be hypotensive. No fever, no lower extremity pain was reported. No loss of conscioussness/ vision changes, or loss of bladder/bowel function. No seizures, or neurologic weakness was reported. No chest pain, palpitations, no vomiting, no abdominal discomfort, vomigint/ diarrhea was reported. No report of any increase in po opiates or other drugs. No change in po intake. The above opinion was obtained at the time of admission by the house staff. Patient confirms all the above and patient is scheduled for below knee amputation of the right leg because of spreading osteomyelitis in the right forefoot and ankle. He denies any chest complaints or chest pains and up to April was walking the walk in [facility] twice a week. He does carry a family history of coronary disease in that his father had his first myocardial infarct at age 48 and several percutaneous interventions after that. Allergies/Medications Allergies: Coded Allergies: cephalexin (From KEFLEX) (Intermediate, HIVES 04/29/16) adhesive (Mild, IRRITATION 04/29/16) Home Med List: Amlodipine Besylate 5 MG TABLET 1 TAB PO DAILY HTN (Reported) Insulin Detemir (Levemir Flextouch) 100 UNIT/ML (3 ML) INSULN.PEN 20 U SC BID DIABETES (Reported) Lisinopril 40 MG TABLET 1 TAB PO DAILY HTN (Reported) Lovastatin 20 MG TABLET 1 TAB PO DAILY cholesterol (Reported) Metformin HCl 500 MG TABLET 1 TAB PO BID DM II (Reported) Sitagliptin Phosphate (Januvia) 100 MG TABLET 1 TAB PO DAILY DM II (Reported) Current Medications: Current Medications Sig/Angela Start time Last Medication Dose Route Stop Time Status Admin Acetaminophen 650 MG Q6P PRN 07/13 1930 AC PO Amlodipine Besylate 5 MG DAILY 07/16 1000 UNVr PO Ampicillin Sodium/ 3,000 MG Q6H 07/14 0200 AC 07/16 Sulbactam Sodium IV 0829 Sodium Chloride 100 ML Atorvastatin Calcium 20 MG 1700 07/13 1733 AC 07/15 PO 1732 Benzonatate 100 MG TIDPRN PRN 07/15 2215 AC 07/16 PO 0926 Docusate Sodium 100 MG DAILY NEEDED PRN 07/15 0100 AC PO Enoxaparin Sodium 40 MG DAILY 07/15 1000 AC 07/16 SC 0927 Guaifenesin 10 ML Q6P PRN 07/15 1400 AC 07/16 PO 0926 Heparin Sodium 5,000 UNIT Q8 07/14 1439 DC 07/15 (Porcine) SC 0612 Insulin Aspart 0 TIDAC 07/16 1200 AC SC Insulin Aspart 0 TIDAC 07/14 1700 DC 07/15 SC 1732 Insulin Detemir 20 UNITS BID 07/16 1000 AC 07/16 SC 0941 Insulin Detemir 10 UNITS BID 07/15 2200 DC 07/15 SC 2042 Insulin Detemir 20 UNITS BID 07/14 2200 DC 07/15 SC 1054 Insulin Human Regular 4 UNITS .STK-MED ONE 07/16 0025 DC IV 07/16 0026 Insulin Human Regular 0 Q6 07/15 1930 DC 07/16 SC 0551 Lisinopril 20 MG DAILY 07/14 1434 AC 07/16 PO 0926 Nystatin 1 DANIELLE Q6 07/16 0633 AC 07/16 TOP 0928 Oxycodone HCl 5 MG Q6H 07/13 1930 DC 07/14 PO 0233 Oxycodone/ 2 TAB Q6P PRN 07/13 1930 AC 07/16 Acetaminophen PO 0320 Sodium Chloride 1,000 ML Q13H 07/16 0800 DC 07/16 IV 07/16 Review of Systems Review of Systems Constitutional: Denies: no symptoms. EENTM: Denies: no symptoms. Cardiovascular: Denies: no symptoms. Respiratory: Denies: no symptoms. GI: Denies: no symptoms. Genitourinary: Denies: no symptoms. Musculoskeletal: Reports: see HPI. Skin: Reports: see HPI. Neurological/Psychological: Denies: no symptoms. Hematologic/Endocrine: Denies: no symptoms. Immunologic/Allergic: Denies: no symptoms. Past History Travel History Traveled to [place] past 21 day No Medical History Blood Transfusion Hx: No Neurological: NONE EENT: NONE Cardiovascular: hypertension, hyperlipidemia Respiratory: NONE Gastrointestinal: C. 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 MOTHER (diverticulitis). BROTHER (diabetes). Relation not specified for: FH: diabetes mellitus Psychosocial History Services at Home: None Smoking Status: Never Smoked ETOH Use: denies use Illicit Drug Use: denies illicit drug use Functional Ability ADLs Independent: dressing, eating, toileting, bathing. ECHO Results (as available) Date of last Echo 05/14/16 EF% 55 Report: Normal left and right ventricular systolic function. No significant valvular abnormalities noted. Exam & Diagnostic Data Vital Signs and I&O Vital Signs Date Time Temp Pulse Resp B/P B/P Pulse O2 O2 Flow FiO2 Mean Ox Delivery Rate 07/16 0926 78 150/90 07/16 0818 97.7 78 18 150/90 98 07/15 2236 97.0 90 18 146/88 98 Room Air 07/15 1633 98.2 85 16 138/80 97 Room Air 07/15 1053 92 148/70 Intake & Output 07/16 1600 07/16 0800 07/16 0000 07/15 1600 07/15 0800 07/15 0000 Intake Total 161 699 0723 100 370 Output Total 600 650 650 700 500 Balance -300 -170 550 -600 -130 Intake, IV 150 100 130 Intake, Oral 951 371 0550 240 Number 1 Bowel Movements Output, Urine 600 650 650 700 500 Physical Exam: General exam the patient appeared comfortable. Quite communicative. Head normocephalic/atraumatic Eyes sclera anicteric conjunctiva showed no pallor extraocular muscles were normal Neck no jugular venous distention no thyroid masses no palpable nodes no cervical lymphadenopathy Chest lungs were clear bilaterally Heart regular rhythm no murmurs S2 was physiologically split Abdomen soft protuberant nontender no organomegaly Extremities right foot in a dressing. No edema. Neurological no gross motor or sensory deficits Labs/Ramin Results: Laboratory Tests 07/16 07/15 0415 0614 Chemistry Sodium (137 - 145 mmol/L) 139 Potassium (3.5 - 5.1 mmol/L) 4.0 Chloride (98 - 107 mmol/L) 100 Carbon Dioxide (22 - 30 mmol/L) 30 Anion Gap (5 - 16) 10 BUN (9 - 20 mg/dL) 9 Creatinine (0.7 - 1.2 mg/dL) 0.5 L Estimated GFR (>60 ml/min) > 60 BUN/Creatinine Ratio (7 - 25 %) 18.0 Glucose (65 - 99 mg/dL) 212 H Coagulation PT (9.4 - 12.5 SEC) 13.3 H INR (0.90 - 1.17) 1.27 H APTT (25 - 37 SEC) 33 Hematology CBC w Diff NO MAN DIFF REQ NO MAN DIFF REQ WBC (4.8 - 10.8 /CUMM) 12.8 H 11.7 H RBC (4.70 - 6.10 /CUMM) 4.07 L 4.13 L Hgb (14.0 - 18.0 G/DL) 11.8 L 12.1 L Hct (42 - 52 %) 35.5 L 35.7 L MCV (80.0 - 94.0 FL) 87.1 86.5 MCH (27.0 - 31.0 PG) 29.0 29.3 RDW (11.5 - 14.5 %) 14.7 H 14.8 H Plt Count (130 - 400 /CUMM) 326 334 MPV (7.4 - 10.4 FL) 8.2 8.4 Gran % (42.2 - 75.2 %) 70.3 70.6 Lymphocytes % (20.5 - 51.1 %) 15.1 L 15.2 L Monocytes % (1.7 - 9.3 %) 9.1 8.6 Eosinophils % (0 - 5 %) 5.2 H 5.2 H Basophils % (0.0 - 2.0 %) 0.3 0.4 Absolute Granulocytes (1.4 - 6.5 /CUMM) 9.0 H 8.2 H Absolute Lymphocytes (1.2 - 3.4 /CUMM) 1.9 1.8 Absolute Monocytes (0.10 - 0.60 /CUMM) 1.2 H 1.0 H Absolute Eosinophils (0.0 - 0.7 /CUMM) 0.7 0.6 Absolute Basophils (0.0 - 0.2 /CUMM) 0 0 PUBS MCHC (33.0 - 37.0 G/DL) 33.3 33.9 Diagnostic Data EKG Results Sinus rhythm was within normal limits CXR Results Not on record Assessment/Plan Assessment/Plan In summary this 45-year-old gentleman was admitted with osteomyelitis that is recurrent in the right foot and is scheduled for right below-knee amputation. Cardiac consultation was obtained to assess cardiac risk. #1. Preop cardiac risk. After 2 months ago the patient was walking twice a week without chest pains or unusual shortness of breath. He has a normal resting electrocardiogram. He has a normal left ventricular function by echocardiogram and no significant valvular abnormalities. His troponin levels are negative. Therefore he is cleared for the above surgery with slightly higher than average risk, because of his multiple risk factors and lack of any objective cardiac workup. However and no further cardiac intervention is planned at this time prior to his surgery. However after surgery and rehabilitation and in the absence of any acute cardiac development he should probably have a cardiac stress test because of his multiple risk factors. #2. Diabetes mellitus #3. Osteomyelitis of the right foot. Presenting symptoms of hypotension was related to sepsis. This is since recovered. #4. Hypertension. At the moment his blood pressure is borderline. He currently is on lisinopril 20 mg. He may need the addition of further antihypertensive agents in which case amlodipine 5 mg a day is suggested if most of his systolic blood pressure readings are greater than 140. #5. Hyperlipidemia Thank you for lying me the option or if participating in his care. Mr. Barberry will be given a follow-up appointment at our office for further cardiac testing once this stage of surgery and hospitalization is completed. I would obtain a chest x-ray as a baseline. Follow-up EKGs are suggested postoperatively daily 2. Consult Acknowledgment - Thank you for your consult request.
--- NOTE | 2016-07-16 11:10 | PN- Infect Dx ---
Subjective Subjective: Afebrile without complaints Objective Last 24 Hrs of Vital Signs/I&O Vital Signs Date Time Temp Pulse Resp B/P B/P Pulse O2 O2 Flow FiO2 Mean Ox Delivery Rate 07/16 0926 78 150/90 07/16 0818 97.7 78 18 150/90 98 07/15 2236 97.0 90 18 146/88 98 Room Air 07/15 1633 98.2 85 16 138/80 97 Room Air Intake & Output 07/16 1600 07/16 0800 07/16 0000 Intake Total 300 480 Output Total 600 650 Balance -300 -170 Intake, IV 150 Intake, Oral 150 480 Output, Urine 600 650 Physical Exam Other Physical Findings: He appears comfortable in no acute distress Extremities right foot dressing intact Results Last 24 Hours of Lab Results: Laboratory Tests 07/16 0415 Coagulation PT (9.4 - 12.5 SEC) 13.3 H INR (0.90 - 1.17) 1.27 H APTT (25 - 37 SEC) 33 Hematology CBC w Diff NO MAN DIFF REQ WBC (4.8 - 10.8 /CUMM) 12.8 H RBC (4.70 - 6.10 /CUMM) 4.07 L Hgb (14.0 - 18.0 G/DL) 11.8 L Hct (42 - 52 %) 35.5 L MCV (80.0 - 94.0 FL) 87.1 MCH (27.0 - 31.0 PG) 29.0 RDW (11.5 - 14.5 %) 14.7 H Plt Count (130 - 400 /CUMM) 326 MPV (7.4 - 10.4 FL) 8.2 Gran % (42.2 - 75.2 %) 70.3 Lymphocytes % (20.5 - 51.1 %) 15.1 L Monocytes % (1.7 - 9.3 %) 9.1 Eosinophils % (0 - 5 %) 5.2 H Basophils % (0.0 - 2.0 %) 0.3 Absolute Granulocytes (1.4 - 6.5 /CUMM) 9.0 H Absolute Lymphocytes (1.2 - 3.4 /CUMM) 1.9 Absolute Monocytes (0.10 - 0.60 /CUMM) 1.2 H Absolute Eosinophils (0.0 - 0.7 /CUMM) 0.7 Absolute Basophils (0.0 - 0.2 /CUMM) 0 PUBS MCHC (33.0 - 37.0 G/DL) 33.3 Last 24 Hours of Ramin Results: Blood cultures July 13 negative Assessment/Plan Impression: Improved with temperatures remaining normal and white blood cell count decreased on empiric treatment with Unasyn Day 3 for osteomyelitis of the left foot and heel noted on the recent MRI. He is apparently scheduled for a right BKA in the a.m., which apparently may be a guillotine amputation, with a second procedure for closure next week. Suggestion: 1. Await right BKA 2. Continue Unasyn pending above
[2016-07-16 15:58] VITALS: BP 170/92
--- NOTE | 2016-07-16 21:18 | RADIOLOGY REPORT ---
EXAMINATION:\H\ \N\XR CHEST CLINICAL INFORMATION: Preoperative chest x-ray. COMPARISON: Portable chest x-ray 05/04/2016. TECHNIQUE: Frontal view of the chest was obtained. FINDINGS: The lungs are hypoinflated, without focal airspace consolidation. No pleural effusions or pneumothoraces are identified. Cardiomediastinal contours are stable. Soft tissues are unremarkable. No acute osseous abnormality is identified. IMPRESSION: No acute pulmonary process.
[2016-07-17 00:59] VITALS: BP 156/96
[2016-07-17 08:05] LABS: ABSOLUTE BASOPHIL COUNT 0.1 /CUMM (0.0-0.2); ABSOLUTE EOSINOPHIL COUNT 0.7 /CUMM (0.0-0.7); ABSOLUTE GRANULOCYTE CT 6.7 /CUMM (1.4-6.5); ABSOLUTE LYMPH COUNT 1.9 /CUMM (1.2-3.4); BASOPHIL % 0.6 % (0.0-2.0); EOSINOPHIL % 6.8 % (0-5); GRANULOCYTE % 64.7 % (42.2-75.2); HEMATOCRIT 38.3 % (42-52); MEAN CORPUSCULAR HGB 29.2 PG (27.0-31.0); MEAN CORPUSCULAR HGB CONC 33.5 G/DL (33.0-37.0); MEAN CORPUSCULAR VOLUME 87.3 FL (80.0-94.0); MEAN PLATELET VOLUME 8.1 FL (7.4-10.4); PLATELET COUNT 328 /CUMM (130-400); RBC DISTRIBUTION WIDTH 14.9 % (11.5-14.5); RED BLOOD CELL CT 4.39 /CUMM (4.70-6.10); WHITE BLOOD CELL COUNT 10.3 /CUMM (4.8-10.8)
[2016-07-17 08:14] LABS: PT 12.9 SEC (9.4-12.5)
[2016-07-17 08:39] VITALS: BP 150/94
--- NOTE | 2016-07-17 10:04 | PN- Housestaff ---
ANNETTE FIGUEROA 07/17/16 0955: Subjective Follow-up For: Right ankle osteomyelitis and cellulitis Subjective: No overnight events. He is going for Surgery on Wednesday. Offers no complaints. Review of Systems Constitutional: Reports: see HPI. Objective Last 24 Hrs of Vital Signs/I&O Vital Signs Date Time Temp Pulse Resp B/P B/P Pulse O2 O2 Flow FiO2 Mean Ox Delivery Rate 07/17 0839 97.4 86 20 150/94 96 07/17 0059 98.5 86 20 156/96 97 Room Air 07/17 0000 98 Room Air 07/16 1600 Room Air 07/16 1558 98.0 90 20 170/92 95 Room Air 07/16 1157 80 152/88 Intake & Output 07/17 1600 07/17 0800 07/17 0000 Intake Total 300 1075 Output Total 700 350 Balance -400 725 Intake, IV 100 130 Intake, Oral 200 945 Output, Urine 700 350 Physical Exam General Appearance: Alert, Oriented X3, Cooperative, No Acute Distress HEENT: Mucous Membr. moist/pink Cardiovascular: Regular Rate, No Murmurs Lungs: Clear to Auscultation Abdomen: Normal Bowel Sounds, Soft, No Tenderness Neurological: Normal Speech, Cranial Nerves 3-12 NL Extremities: right leg bandage intact. Current Medications: Current Medications Sig/Angela Start time Last Medication Dose Route Stop Time Status Admin Acetaminophen 650 MG Q6P PRN 07/13 1930 AC PO Amlodipine Besylate 5 MG DAILY 07/16 1000 AC 07/16 PO 1157 Ampicillin Sodium/ 3,000 MG Q6H 07/14 0200 AC 07/17 Sulbactam Sodium IV 0827 Sodium Chloride 100 ML Atorvastatin Calcium 20 MG 1700 07/13 1733 AC 07/16 PO 1728 Benzonatate 100 MG TIDPRN PRN 07/15 2215 AC 07/16 PO 2150 Dextrose/Sodium 1,000 ML Q13H 07/17 0000 CAN Chloride IV Docusate Sodium 100 MG DAILY NEEDED PRN 07/15 0100 AC PO Enoxaparin Sodium 40 MG DAILY 07/15 1000 AC 07/16 SC 0927 Guaifenesin 10 ML Q6P PRN 07/15 1400 AC 07/16 PO 0926 Insulin Aspart 0 TIDAC 07/16 1200 AC 07/17 SC 07/17 1200 0827 Insulin Detemir 10 UNITS BID 07/17 0000 CAN SC Insulin Detemir 20 UNITS BID 07/16 1000 AC 07/16 SC 07/17 1400 2151 Insulin Human Regular 0 Q6 07/17 0000 CAN SC Lisinopril 20 MG DAILY 07/14 1434 AC 07/16 PO 0926 Nystatin 1 DANIELLE Q6 07/16 0633 AC 07/17 TOP 0536 Oxycodone/ 2 TAB Q6P PRN 07/13 1930 AC 07/16 Acetaminophen PO 2150 Patient Medication 1 ED .STK-MED ONE 07/16 1359 MI Teaching ED 07/16 1400 Last 24 Hrs of Lab/Ramin Results Last 24 Hrs of Labs/Mics: Laboratory Tests 07/17/16 0625: PT 12.9 H, INR 1.23 H, CBC w Diff NO MAN DIFF REQ, RBC 4.39 L, MCV 87.3, MCH 29.2, RDW 14.9 H, MPV 8.1, Gran % 64.7, Lymphocytes % 18.1 L, Monocytes % 9.8 H, Eosinophils % 6.8 H, Basophils % 0.6, Absolute Granulocytes 6.7 H, Absolute Lymphocytes 1.9, Absolute Monocytes 1.0 H, Absolute Eosinophils 0.7, Absolute Basophils 0.1, PUBS MCHC 33.5 Assessment/Plan Assessment: This is 45 year old male with past medical history of diabetes who was treated for right lower extremity osteomyelitis/infected right foot plantar ulcer requiring amputation of right great toe s/p 4 weeks course of IV Unasyn with placement of wound VAC. Problem list #1 Acute osteomyelitis right foot. on IV unasyn. Afebrile since admission. WBC count 10.3 today. #2 lightheadedness/dizziness. Most likely vasovagal. Ruled out ACS #3 history of hypertension. On lisinopril and amlodipine #4 history of diabetes mellitus. Holding metformin, Januvia. On Novolog SS and Levemir. PLAN * Monitor vitals closely * Continue IV Unasyn per ID * Podiatry and Vascular on board * Plan for surgery on Wednesday * Cleared by cardio for surgery yesterday * Blood cultures 2 negative to date * Continue insulin Levemir and NovoLog sliding scale * Accu-Cheks before each meal and at bedtime * Adequate pain management * DVT prophylaxis: Subcutaneous Lovenox * Patient is full code * Off tele monitor, GM hold Problem List: 1. Osteomyelitis Pain Ratin Pain Location: right leg Pain Goal: Pain 4 or less Pain Plan: tylenol Tomorrow's Labs & Rationales: cbc DVT/Prophylaxis: pharmacological Consulting Request: Consulting Specialty: Podiatry STANFORD PERKINS,MEREDITH 07/17/16 1213: Attending MD Review Statement Attending Statement Attending MD Statement: examined this patient, discuss w/resident/PA/SHIRRING TENDER, agreed w/resident/PA/SHIRRING TENDER, discussed with family, reviewed EMR data (avail), discussed with case mgmt, amended to note Attending Assessment/Plan: Patient seen and examined, feels well. Emotionally he does not feel depressed or anxious. His blood pressure continues to remain slightly on the higher side. Norvasc has been added and we have room to go up on the dose of Norvasc if blood pressure still not well controlled. Continue antibiotics per infectious disease. Patient needs to have a BKA done which is scheduled for July 20. Blood sugars are running in acceptable range on current regimen. Pain management adequate. DVT prophylaxis: Lovenox. Discussed with patient's aunt at bedside.
--- NOTE | 2016-07-17 10:28 | NUR ---
Physical Therapy. PT consult received and chart reviewed. Discussed in MDRs and w/ nsg that PT evaluation should be deferred until s/p his R BKA which is planned for Wednesday. Please re-consult at that time as appropriate.
--- NOTE | 2016-07-17 11:00 | PN- Infect Dx ---
Subjective Subjective: Afebrile. He notes occasional discomfort in the right foot. Objective Last 24 Hrs of Vital Signs/I&O Vital Signs Date Time Temp Pulse Resp B/P B/P Pulse O2 O2 Flow FiO2 Mean Ox Delivery Rate 07/17 1017 80 150/90 07/17 1017 80 150/90 07/17 0839 97.4 86 20 150/94 96 07/17 0059 98.5 86 20 156/96 97 Room Air 07/17 0000 98 Room Air 07/16 1600 Room Air 07/16 1558 98.0 90 20 170/92 95 Room Air 07/16 1157 80 152/88 Intake & Output 07/17 1600 07/17 0800 07/17 0000 Intake Total 300 1075 Output Total 700 350 Balance -400 725 Intake, IV 100 130 Intake, Oral 200 945 Output, Urine 700 350 Physical Exam Other Physical Findings: He appears comfortable in no acute distress Extremities right foot dressing intact Results Last 24 Hours of Lab Results: Laboratory Tests 07/17 0625 Coagulation PT (9.4 - 12.5 SEC) 12.9 H INR (0.90 - 1.17) 1.23 H Hematology CBC w Diff NO MAN DIFF REQ WBC (4.8 - 10.8 /CUMM) 10.3 RBC (4.70 - 6.10 /CUMM) 4.39 L Hgb (14.0 - 18.0 G/DL) 12.8 L Hct (42 - 52 %) 38.3 L MCV (80.0 - 94.0 FL) 87.3 MCH (27.0 - 31.0 PG) 29.2 RDW (11.5 - 14.5 %) 14.9 H Plt Count (130 - 400 /CUMM) 328 MPV (7.4 - 10.4 FL) 8.1 Gran % (42.2 - 75.2 %) 64.7 Lymphocytes % (20.5 - 51.1 %) 18.1 L Monocytes % (1.7 - 9.3 %) 9.8 H Eosinophils % (0 - 5 %) 6.8 H Basophils % (0.0 - 2.0 %) 0.6 Absolute Granulocytes (1.4 - 6.5 /CUMM) 6.7 H Absolute Lymphocytes (1.2 - 3.4 /CUMM) 1.9 Absolute Monocytes (0.10 - 0.60 /CUMM) 1.0 H Absolute Eosinophils (0.0 - 0.7 /CUMM) 0.7 Absolute Basophils (0.0 - 0.2 /CUMM) 0.1 PUBS MCHC (33.0 - 37.0 G/DL) 33.5 Last 24 Hours of Ramin Results: Blood cultures 2 July 13 negative Recent Imaging Studies: Chest x-ray July 16 negative Assessment/Plan Impression: Stable with temperatures and white blood cell count normal on empiric treatment with Unasyn Day 4 for osteomyelitis of the left foot. He was scheduled for a right BKA today, but this has apparently been deferred until July 20, at which time it will be done as a one stage procedure. Suggestion: 1. Await right BKA on July 20 2. Continue Unasyn pending above
[2016-07-17 16:45] VITALS: BP 158/90
[2016-07-18 01:22] VITALS: BP 148/88
[2016-07-18 08:28] VITALS: BP 161/82
--- NOTE | 2016-07-18 08:38 | PN- Housestaff ---
JESSE PERKINS,AKSHAT 07/18/16 0838: Subjective Follow-up For: Right ankle osteomyelitis and cellulitis Tele-Events Since Last Visit: Off tele Subjective: Patient seen and examined at bedside. He offers no complaints. Reports 0 pain in the RLE. Awaiting surgery. Denies any dypsnea, chest pain, lightheadedness, dizziness, abdominal pain, n/v/c/d. No acute events reported overnight. Review of Systems Constitutional: Reports: see HPI. Objective Last 24 Hrs of Vital Signs/I&O Vital Signs Date Time Temp Pulse Resp B/P B/P Pulse O2 O2 Flow FiO2 Mean Ox Delivery Rate 07/18 0828 98.1 16 16 161/82 97 Room Air 07/18 0122 97.9 82 18 148/88 98 Room Air 07/17 1645 98.1 84 18 158/90 98 Room Air 07/17 1017 80 150/90 07/17 1017 80 150/90 Intake & Output 07/18 1600 07/18 0800 07/18 0000 Intake Total 460 740 Output Total 1400 2600 Balance -940 -1860 Intake, IV 100 100 Intake, Oral 360 640 Number 0 Bowel Movements Output, Urine 1400 2600 Physical Exam General Appearance: Alert, Cooperative, No Acute Distress Other Physical Findings: HEENT: Mucous Membr. moist/pink Cardiovascular: Regular Rate, No Murmurs Lungs: Clear to Auscultation Abdomen: Normal Bowel Sounds, Soft, No Tenderness Neurological: Normal Speech, Cranial Nerves 3-12 NL Extremities: right leg bandage intact. Current Medications: Current Medications Sig/Angela Start time Last Medication Dose Route Stop Time Status Admin Acetaminophen 650 MG Q6P PRN 07/13 1930 AC PO Amlodipine Besylate 5 MG DAILY 07/16 1000 AC 07/17 PO 1017 Ampicillin Sodium/ 3,000 MG Q6H 07/14 0200 AC 07/18 Sulbactam Sodium IV 0200 Sodium Chloride 100 ML Atorvastatin Calcium 20 MG 1700 07/13 1733 AC 07/17 PO 1803 Benzonatate 100 MG TIDPRN PRN 07/15 2215 AC 07/16 PO 2150 Docusate Sodium 100 MG DAILY NEEDED PRN 07/15 0100 AC PO Enoxaparin Sodium 40 MG DAILY 07/15 1000 AC 07/17 SC 1017 Guaifenesin 10 ML Q6P PRN 07/15 1400 AC 07/16 PO 0926 Insulin Aspart 0 TIDAC/HS 07/18 0800 AC SC Insulin Aspart 0 TIDAC 07/17 1700 DC 07/17 SC 1805 Insulin Aspart 0 TIDAC 07/16 1200 DC 07/17 SC 07/17 1200 1310 Insulin Detemir 20 UNITS BID 07/17 2200 AC 07/17 SC 2221 Insulin Detemir 20 UNITS BID 07/16 1000 DC 07/17 SC 07/17 1400 1018 Lisinopril 20 MG DAILY 07/14 1434 AC 07/17 PO 1017 Nystatin 1 DANIELLE Q6 07/16 0633 AC 07/18 TOP 0621 Oxycodone/ 2 TAB Q6P PRN 07/13 1930 AC 07/17 Acetaminophen PO 2010 Assessment/Plan Assessment: This is 45 year old male with past medical history of diabetes who was treated for right lower extremity osteomyelitis/infected right foot plantar ulcer requiring amputation of right great toe s/p 4 weeks course of IV Unasyn with placement of wound VAC. Problem list #1 Acute osteomyelitis right foot. on IV unasyn. Afebrile since admission. Leukocytosis resolved. #2 lightheadedness/dizziness. Most likely vasovagal. Ruled out ACS #3 history of hypertension. On lisinopril and amlodipine #4 history of diabetes mellitus. Holding metformin, Januvia. On Novolog SS and Levemir. PLAN * Monitor vitals closely * Continue IV Unasyn per ID * Podiatry, Vascular, ID on board - appreciate recs * Plan for surgery on Wednesday (cleared by cardio for surgery) * Blood cultures 2 negative to date * Increase Levemir to 21 units BID * Continue NovoLog sliding scale * Accu-Cheks before each meal and at bedtime * Adequate pain management * DVT prophylaxis: Subcutaneous Lovenox * Patient is full code * Off tele monitor, GM hold Problem List: 1. Osteomyelitis 2. Cellulitis 3. Wound infection 4. Hypertension 5. Diabetes mellitus Pain Ratin Pain Location: RLE Pain Goal: Pain 4 or less Pain Plan: Mild pathway Tomorrow's Labs & Rationales: None Consulting Request: Consulting Specialty: Podiatry STANFORD PERKINS,MEREDITH 07/18/16 1336: Attending MD Review Statement Attending Statement Attending MD Statement: examined this patient, discuss w/resident/PA/CHECKER CASHIER, agreed w/resident/PA/CHECKER CASHIER, reviewed EMR data (avail), discussed with nursing, reviewed images, amended to note Attending Assessment/Plan: Patient seen and examined, feels okay. Denies any complaints. Denies any aches or pains. Blood pressure is running high and blood sugars were running high. Patient is awaiting BKA planned for Wednesday. Would recommend increasing his Levemir slightly to 21 units twice a day. Also increase his Norvasc to 10 mg daily. Continue all the current medications and antibiotics. DVT plexus: Lovenox. Patient should be kept nothing by mouth after midnight on Wednesday night. His Levemir dose will need to be adjusted (decrease to half) at that time.
[2016-07-18 16:16] VITALS: BP 179/84
[2016-07-18 17:40] VITALS: BP 164/94
[2016-07-18 23:01] VITALS: BP 134/86
--- NOTE | 2016-07-18 23:03 | NUR ---
PATIENT ARRIVED TO UNIT FROM TELE AT 2245 VIA TRANSPORT. PT ON SPECIALTY MATTRESS. PT A+Ox3. PT ORIENTED TO CALL [facility], ROOM, STAFF, SURROUNDINGS. WATER PITCHER AND URINAL PROVIDED. BELONGINGS PLACED IN CLOSET. URINAL AND CALL [facility] AT BEDSIDE. NO COMPLAINTS AT THIS TIME. GEN MED ORDER IN PLACE. MD SARMIENTO PAGED TO DC TELE ORDER. WILL CONTINUE TO CLOSELY MONITOR.
[2016-07-19 07:14] VITALS: BP 180/60
--- NOTE | 2016-07-19 08:58 | PN- Housestaff ---
ELLIOTT PERKINS,DOMITILA 07/19/16 0858: Subjective Follow-up For: Right ankle posterior myelitis and cellulitis Complaints: no complaints Subjective: Patient seen and examined by me today. He is comfortable, not in distress, resting in his bed. He offers no complaints. He is awaiting surgery tomorrow. Vitals have been stable, no overnight events. We spoke about diabetes and long-term management of the condition, and the need for lifestyle modification, which he seemed to be agreeable to. Review of Systems Constitutional: Reports: no symptoms. Objective Last 24 Hrs of Vital Signs/I&O Vital Signs Date Time Temp Pulse Resp B/P B/P Pulse O2 O2 Flow FiO2 Mean Ox Delivery Rate 07/19 1418 98.4 100 20 142/70 96 Room Air 07/19 1108 82 150/98 07/19 1107 82 150/98 07/19 0714 97.7 105 20 180/60 98 Room Air 07/18 2301 97.8 80 20 134/86 94 Intake & Output 07/19 1600 07/19 0800 07/19 0000 Intake Total 1000 130 Output Total 650 550 Balance 350 -420 Intake, IV 200 130 Intake, Oral 800 0 Number 1 0 Bowel Movements Output, Urine 650 550 Physical Exam General Appearance: Alert, Oriented X3, Cooperative, No Acute Distress, obese Other Physical Findings: HEENT: Mucous Membr. moist/pink Cardiovascular: Regular Rate, No Murmurs Lungs: Clear to Auscultation Abdomen: Normal Bowel Sounds, Soft, No Tenderness Neurological: Normal Speech, Cranial Nerves 3-12 NL Extremities: right leg bandage intact. Current Medications: Current Medications Sig/Angela Start time Last Medication Dose Route Stop Time Status Admin Acetaminophen 650 MG Q6P PRN 07/13 1930 AC PO Amlodipine Besylate 5 MG DAILY 07/16 1000 AC 07/19 PO 1107 Ampicillin Sodium/ 3,000 MG Q6H 07/14 0200 AC 07/19 Sulbactam Sodium IV 2036 Sodium Chloride 100 ML Atorvastatin Calcium 20 MG 1700 07/13 1733 AC 07/19 PO 1619 Benzonatate 100 MG TIDPRN PRN 07/15 2215 AC 07/16 PO 2150 Dextrose/Sodium 1,000 ML Q13H 07/20 0000 AC Chloride IV Docusate Sodium 100 MG .STK-MED ONE 07/19 1112 DC PO 07/19 1113 Docusate Sodium 100 MG DAILY NEEDED PRN 07/15 0100 AC 07/19 PO 1111 Enoxaparin Sodium 40 MG DAILY 07/15 1000 AC 07/19 SC 1106 Guaifenesin 10 ML Q6P PRN 07/15 1400 AC 07/16 PO 0926 Insulin Aspart 0 TIDAC/HS 07/18 0800 AC 07/19 SC 07/20 0000 1840 Insulin Detemir 10 UNITS BID 07/19 2200 AC SC Insulin Detemir 21 UNITS BID 07/18 2200 DC 07/19 SC 1105 Insulin Human Regular 0 Q6 07/20 0600 DC SC Insulin Human Regular 0 Q6 07/20 0000 AC SC Lisinopril 40 MG DAILY 07/19 1000 AC 07/19 PO 1108 Nystatin 1 DANIELLE Q6 07/16 0633 AC 07/19 TOP 1619 Oxycodone/ 2 TAB Q6P PRN 07/13 1930 AC 07/19 Acetaminophen PO 2035 Assessment/Plan Assessment: This is 45 year old male with past medical history of diabetes who was treated for right lower extremity osteomyelitis/infected right foot plantar ulcer requiring amputation of right great toe s/p 4 weeks course of IV Unasyn with placement of wound VAC. Problem list #1 Acute osteomyelitis right foot. on IV unasyn. Afebrile since admission. Leukocytosis resolved. #2 lightheadedness/dizziness. Most likely vasovagal. Ruled out ACS #3 history of hypertension. On lisinopril and amlodipine #4 history of diabetes mellitus. Holding metformin, Januvia. On Novolog SS and Levemir. PLAN * Monitor vitals closely * Continue IV Unasyn per ID * Podiatry, Vascular, ID on board - appreciate recs * Plan for surgery on Wednesday (optimized by cardio for surgery) * Blood cultures 2 negative to date * Continue Levemir to 21 units BID * Continue NovoLog sliding scale * Continue lisinopril 40 mg daily for HTN * Accu-Cheks before each meal and at bedtime * Adequate pain management * DVT prophylaxis: Subcutaneous Lovenox * Patient is full code Problem List: 1. Osteomyelitis 2. Diabetes mellitus 3. Hypertension Pain Ratin Pain Location: leg when present Pain Goal: Pain 4 or less Pain Plan: prn Tomorrow's Labs & Rationales: CBC to check baseline before surgery Consulting Request: Consulting Specialty: Podiatry STANFORD PERKINS,MEREDITH 07/19/16 1250: Attending MD Review Statement Attending Statement Attending MD Statement: examined this patient, discuss w/resident/PA/REINFORCING BAR SETTER, agreed w/resident/PA/REINFORCING BAR SETTER, discussed with family, reviewed EMR data (avail), discussed with nursing, amended to note Attending Assessment/Plan: Patient seen and examined, denies any complaints. Feels well, denies any aches or pains. Blood pressure was high this morning. Vital Signs Date Time Temp Pulse Resp B/P B/P Pulse O2 O2 Flow FiO2 Mean Ox Delivery Rate 07/19 1108 82 150/98 07/19 1107 82 150/98 07/19 0714 97.7 105 20 180/60 98 Room Air 07/18 2301 97.8 80 20 134/86 94 07/18 1740 90 16 164/94 97 Room Air Room Air 07/18 1738 90 164/94 07/18 1616 98.8 87 16 179/84 90 Room Air on exam; aox3, nad. cv; s1,s2, rrr resp; clear abd; soft, nt, bs+ ext; no edema rle is wrapped in dressing. no labs. A/P; 45 year old male with past medical history of diabetes who was treated for right lower extremity osteomyelitis/infected right foot plantar ulcer status post first ray resection and I&D in May 2016 with 4 weeks course of IV Unasyn, with wound VAC who was returned from [facility] for routine evaluation of his wound found to be lightheaded in setting of sepsis, was evaluated in ER with MRI of right foot suggesting osteomyelitis involving the talus and calcaneus. Currently on antibiotics IV and awaiting BKA that is scheduled for tomorrow. Continue antibiotics. Patient should be kept nothing by mouth after midnight tonight. Decrease Levemir to half. Start the patient on IV fluids. Agree with increasing lisinopril to 40 mg for better blood pressure control. DVT prophylaxis: Lovenox
[2016-07-19 14:18] VITALS: BP 142/70
[2016-07-19 21:48] VITALS: BP 122/80
[2016-07-20 07:20] VITALS: BP 120/70
--- NOTE | 2016-07-20 07:33 | PN- Housestaff ---
ELLIOTT PERKINS,DOMITILA 07/20/16 0733: Subjective Follow-up For: Right ankle osteomyelitis and cellulitis Complaints: no complaints Subjective: I followed up and examined the patient this morning. He is comfortable, not in distress, awaiting his surgery later today. He was concerned about pain management after the surgery, and was assured that it would be taking care of, after which he seems to be at peace. Vitals have been stable, no overnight events otherwise. Review of Systems Constitutional: Reports: no symptoms. Objective Last 24 Hrs of Vital Signs/I&O Vital Signs Date Time Temp Pulse Resp B/P B/P Pulse O2 O2 Flow FiO2 Mean Ox Delivery Rate 07/20 0720 98.1 92 20 120/70 96 Room Air 07/19 2148 98.4 88 20 122/80 96 07/19 1418 98.4 100 20 142/70 96 Room Air Intake & Output 07/20 1600 07/20 0800 07/20 0000 Intake Total 500 200 Output Total 600 Balance -100 200 Intake, IV 500 200 Intake, Oral 0 Number 0 Bowel Movements Output, Urine 600 Physical Exam General Appearance: Alert, Oriented X3, Cooperative, No Acute Distress, obese Other Physical Findings: HEENT: Mucous Membr. moist/pink Cardiovascular: Regular Rate, No Murmurs Lungs: Clear to Auscultation Abdomen: Normal Bowel Sounds, Soft, No Tenderness Neurological: Normal Speech, Cranial Nerves 3-12 NL Extremities: right leg bandage intact. Current Medications: Current Medications Sig/Angela Start time Last Medication Dose Route Stop Time Status Admin Acetaminophen 650 MG Q6P PRN 07/13 1930 AC PO Amlodipine Besylate 5 MG DAILY 07/16 1000 AC 07/19 PO 1107 Ampicillin Sodium/ 3,000 MG Q6H 07/14 0200 AC 07/20 Sulbactam Sodium IV 0754 Sodium Chloride 100 ML Atorvastatin Calcium 20 MG 1700 08 1733 AC 07/19 PO 1619 Benzonatate 100 MG TIDPRN PRN 07/15 2215 AC 07/16 PO 2150 Dextrose/Sodium 1,000 ML Q13H 07/20 0000 AC 07/19 Chloride IV 2359 Docusate Sodium 100 MG DAILY NEEDED PRN 07/15 0100 AC 07/19 PO 1111 Enoxaparin Sodium 40 MG DAILY 07/15 1000 AC 07/19 SC 1106 Guaifenesin 10 ML Q6P PRN 07/15 1400 AC 07/16 PO 0926 Insulin Aspart 0 TIDAC/HS 07/18 0800 DC 07/19 SC 07/20 0000 2138 Insulin Detemir 10 UNITS BID 07/19 2200 AC 07/19 SC 2138 Insulin Detemir 21 UNITS BID 07/18 2200 DC 07/19 SC 1105 Insulin Human Regular 0 Q6 07/20 0600 DC SC Insulin Human Regular 0 Q6 07/20 0000 AC 07/20 SC 0619 Lisinopril 40 MG DAILY 07/19 1000 AC 07/19 PO 1108 Nystatin 1 DANIELLE Q6 07/16 0633 AC 07/19 TOP 2357 Oxycodone/ 2 TAB Q6P PRN 07/13 1930 AC 07/19 Acetaminophen PO 2035 Last 24 Hrs of Lab/Ramin Results Last 24 Hrs of Labs/Mics: Laboratory Tests 07/20/16 0635: CBC w Diff NO MAN DIFF REQ, RBC 4.35 L, MCV 86.8, MCH 29.3, RDW 14.9 H, MPV 8.0, Gran % 64.7, Lymphocytes % 20.6, Monocytes % 7.8, Eosinophils % 6.4 H, Basophils % 0.5, Absolute Granulocytes 7.1 H, Absolute Lymphocytes 2.3, Absolute Monocytes 0.9 H, Absolute Eosinophils 0.7, Absolute Basophils 0.1, PUBS MCHC 33.8 Assessment/Plan Assessment: This is 45 year old male with past medical history of diabetes who was treated for right lower extremity osteomyelitis/infected right foot plantar ulcer requiring amputation of right great toe s/p 4 weeks course of IV Unasyn with placement of wound VAC. Problem list #1 Acute osteomyelitis right foot. on IV unasyn. Undergoing right-sided below- knee amputation today. Afebrile since admission. #2 lightheadedness/dizziness. Most likely vasovagal. Ruled out ACS #3 history of hypertension. On lisinopril and amlodipine #4 history of diabetes mellitus. Holding metformin, Januvia. On Novolog SS and Levemir. PLAN * Monitor vitals closely * Continue IV Unasyn per ID * Podiatry, Vascular, ID on board - appreciate recs * Undergoing right-sided below-knee amputation today. * Patient is currently NPO awaiting surgery. * Blood cultures 2 and Urine cx: negative (final) * Continue Levemir to 21 units BID, after surgery * Continue NovoLog sliding scale, after surgery * Continue lisinopril 40 mg daily for HTN * Accu-Cheks before each meal and at bedtime * Adequate pain management * DVT prophylaxis: Subcutaneous Lovenox * Patient is full code Problem List: 1. Osteomyelitis 2. Non-pressure chronic ulcer of other part of right foot with fat layer exposed 3. Diabetes mellitus 4. Hypertension 5. Obesity Pain Ratin Pain Location: right lower extremity when hurting Pain Goal: Pain 4 or less Pain Plan: prn Tomorrow's Labs & Rationales: CBC, s/p surgery Consulting Request: Consulting Specialty: Podiatry DAILY MCKINNEY MD 07/20/16 1311: Attending MD Review Statement Attending Statement Attending MD Statement: examined this patient, discuss w/resident/PA/FORGE PRESS OPERATOR, agreed w/resident/PA/FORGE PRESS OPERATOR, discussed with family, reviewed EMR data (avail), discussed with nursing, discussed with case mgmt, amended to note Attending Assessment/Plan: Patient seen and examined. Lying comfortably in bed and not in any acute distress. No issues overnight. His scheduled to undergo right BKA today. He appears to be in good spirits. He is not in acute pain at present. We'll ensure adequate pain management postoperatively. He will need physical therapy evaluation and likely discharge to skilled facility after the procedure.
[2016-07-20 08:39] LABS: ABSOLUTE BASOPHIL COUNT 0.1 /CUMM (0.0-0.2); ABSOLUTE EOSINOPHIL COUNT 0.7 /CUMM (0.0-0.7); ABSOLUTE GRANULOCYTE CT 7.1 /CUMM (1.4-6.5); ABSOLUTE LYMPH COUNT 2.3 /CUMM (1.2-3.4); ABSOLUTE MONOCYTE COUNT 0.9 /CUMM (0.10-0.60); BASOPHIL % 0.5 % (0.0-2.0); EOSINOPHIL % 6.4 % (0-5); GRANULOCYTE % 64.7 % (42.2-75.2); HEMATOCRIT 37.8 % (42-52); MEAN CORPUSCULAR HGB 29.3 PG (27.0-31.0); MEAN CORPUSCULAR HGB CONC 33.8 G/DL (33.0-37.0); MEAN CORPUSCULAR VOLUME 86.8 FL (80.0-94.0); PLATELET COUNT 323 /CUMM (130-400); RBC DISTRIBUTION WIDTH 14.9 % (11.5-14.5); RED BLOOD CELL CT 4.35 /CUMM (4.70-6.10)
--- NOTE | 2016-07-20 13:37 | RADIOLOGY REPORT ---
EXAMINATION: XR FEMUR, RIGHT CLINICAL INFORMATION: 1 view done in OR status post right [id number] amputation. Incorrect needle count. COMPARISON: None TECHNIQUE: AP view of the right femur was obtained. FINDINGS: A cutaneous line of tamiko is seen in place. No other radiopaque foreign body is seen status post [id number] amputation. Frontal view of the knee joint appears unremarkable. Osteotomy site is unremarkable. IMPRESSION: Cutaneous staple line seen at the amputation margin. No other radiopaque foreign body is seen. This critical result was discussed with Roberta Lawrence, nurse for Dr. Harrison in the operating room 07/20/2016, 1:32 PM and it was ascertained that the content and urgency of this report was understood at the time of direct communication.
--- NOTE | 2016-07-20 15:27 | Transfer of Care Summary ---
Hospital Course Course Hospital Course: This is 45 year old male with past medical history of diabetes who was treated for right lower extremity osteomyelitis/infected right foot plantar ulcer requiring amputation of right great toe s/p 4 weeks course of IV Unasyn with placement of wound VAC. Vitals on admission: Temperature 98.6, pulse rate of 74, respiration of 18, blood pressure of 146/74 after 2 L of normal saline bolus, he was 96% saturating on room air. Relevant labs white count of 19.4, 3 bands, H/H of 12.9/37.3, platelet of 378. Sodium noted to be 133, potassium of 5.1, BUN and creatinine 18/0.9, lactic acid elevated at 2.7, glucose 212. EKG showed normal sinus rhythm with a rate of 87, no acute T-wave changes. MRI of the ankle showed acute osteomyelitis involving the talus, calcaneus as well as navicular and cuboid bones with adjacent soft tissue edema consistent with cellulitis. There was also probable cutaneous ulcer over the posterior medial aspect of the ankle, diffuse abnormal signal throughout the tendon sheaths and plantar musculature consistent with inflammatory changes. Patient was admitted on general medicine floor for following problems: #1 Acute osteomyelitis right foot Patient was started on IV unasyn. White Mixing Operator, Dr. Dowd, vascular surgeon and infectious disease specialist, Larry Cao MD are on board. Blood cultures are negative to date. Plan is for right BKA on July 20. Will continue IV Unasyn. Please follow-up #2 lightheadedness/dizziness. It was most likely vasovagal. Troponins [address] acute [address]-T wave changes on serial EKGs. RCRI index--- score is 2-- -he has 6.6% risk of major cardiac event He was cleared for surgery by cardio. #3 history of hypertension. On lisinopril and amlodipine #4 history of diabetes mellitus. Holding metformin, Januvia. He is on NovoLog insulin sliding scale and insulin Levemir. #5 Depression. Psych was consulted. No psychotropics for now Complications: none Pertinent Lab Results: Laboratory Tests 07/17/16 0625: PT 12.9 H, INR 1.23 H, CBC w Diff NO MAN DIFF REQ, RBC 4.39 L, MCV 87.3, MCH 29.2, RDW 14.9 H, MPV 8.1, Gran % 64.7, Lymphocytes % 18.1 L, Monocytes % 9.8 H, Eosinophils % 6.8 H, Basophils % 0.6, Absolute Granulocytes 6.7 H, Absolute Lymphocytes 1.9, Absolute Monocytes 1.0 H, Absolute Eosinophils 0.7, Absolute Basophils 0.1, PUBS MCHC 33.5 Assessment/Plan: #1 Acute osteomyelitis right foot. on IV unasyn. Afebrile since admission. WBC count has normalized. Plan is for right BKA on 07/20/2016. Please follow-up with shake table operator and vascular surgeon. Continue IV Unasyn. #2 lightheadedness/dizziness. Most likely vasovagal. Ruled out ACS #3 history of hypertension. On lisinopril and amlodipine #4 history of diabetes mellitus. Holding metformin, Januvia. On Novolog SS and Levemir. # Depression. No psychotropics at this time, however if he does require or request medication in the future would recommend an agent that is weight neutral , for example, Wellbutrin.
[2016-07-20 15:40] VITALS: BP 150/90
--- NOTE | 2016-07-20 15:42 | Operative Report ---
Operative/Inv Procedure Report Surgery Date: 07/20/16 Name of Procedure: Right below-knee amputation Pre-Operative Diagnosis: Chronic osteomyelitis with infection of multiple bones of the foot and heel/ ankle refractory to antibiotic therapy Post-Operative Diagnosis: Same Estimated Blood Loss: 50ml to 100ml Surgeon/Imagery Analyst: DAMIÁN Anesthesia: general endotracheal tube Complications: None Operative Indication: 45-year-old male with a history of severe diabetes and chronic osteomyelitis of the foot and heel ankle area. He was recently admitted with sepsis and seropurulent drainage. He underwent debridement previously with podiatry as well as multiple toe amputation. After long discussion the patient has decided to proceed with proximal amputation. A second opinion was recommended to him that he wishes to proceed. He is intact from a vascular standpoint and has palpable pedal pulses. Amputation is being done for control of infection and chronic refractory osteomyelitis. Operative/Procedure Note Note: Patient brought to the operating room and laid supine on the table. A timeout was held accordance with [facility] policy. The limb was clearly marked. A posterior flap was fashioned and marked. Sharp dissection was carried down to the skin and subcutaneous tissue with Bovie cautery and a #10 blade. The muscle was divided with Bovie cautery. Hemostasis was achieved. The tibia was exposed. A periosteal elevator was used to clean the bone of its tissue. The tibia was then transected with a Gigli saw. The fibula was then isolated. This was then isolated with a Kathleen clamp and transected with a bone cutter. The anterior tibial artery, tibioperoneal trunk were then ligated with 2-0 silk ties and silk sutures. The limb was then transected with cautery and a #20 blade. It was passed off the field. Hemostasis was achieved with spray thrombin, compression and suture ligature. The posterior flap was then fashioned with 2-0 Vicryl sutures. It was copiously irrigated. It was closed in an interrupted fashion. Nylon sutures and skin tamiko were used to close the superficial tissues. Skin suture line was then covered with Xeroform and bacitracin ointment. The leg was then wrapped with gauze, Kerlix and Naldo. The patient was transferred to the recovery room. CC: TERRY MALAGON DPM
--- NOTE | 2016-07-20 16:18 | PN- Vascular Surgery ---
Subjective Subjective: POSTOP CHECK pain at surgical site, no n/v/cp/sob, sleepy, yosef sips liquids Objective Vital Signs and I&Os Vital Signs Date Time Temp Pulse Resp B/P B/P Pulse O2 O2 Flow FiO2 Mean Ox Delivery Rate 07/20 07 98.1 92 20 120/70 96 Room Air 07/20 2147 98.4 88 20 122/80 96 Intake & Output 07/20 0800 07/20 0000 07/19 0000 Intake Total 275 011 361 0489 130 Output Total 650 600 650 550 Balance -375 -100 200 350 -420 Intake, IV 275 500 200 200 130 Intake, Oral 0 0 800 0 Number 0 0 1 0 Bowel Movements Output, Urine 650 600 650 550 Physical Exam: GEN: NAD CARD: [id number] Reg rhythm, slightly tachy PULM: CTAB ABD: soft nt EXT: RLE stump dressed- c/d/i, +tenderness at dressing. LLE calf soft nt, ALP on, no edema Assessment/Plan Assessment/Plan POD#0 sp R BKA due to dm-related chronic wounds, currently with postop pain, stable. PLAN: prn pain meds aat ada diet dvt ppx unasyn x23hr postop sheet rock hanger to see pt for prosthetic medical mgmt per medical team Core Measures/Miscellaneous Venous Thromboembolism VTE Risk Factors: Surgery VTE Contraindications: No Contraindications VTE Diagnosis: No VTE Type: NONE VTE Confirmed by (Test): NONE [facility] [place] Is [facility] [place] a Home Med? No Antibiotics Is Patient on Antibiotics? Yes
[2016-07-20 20:26] VITALS: BP 180/100
[2016-07-20 22:26] VITALS: BP 182/100
[2016-07-21 02:55] VITALS: BP 180/100
--- NOTE | 2016-07-21 03:12 | Event Note ---
Event Note Event Note: S: Informed by the nurse who paged me at 2.54 am, that patients pressure was 180 /100 B: Visited patient at bedside. AOx3. States that he is uncomfortable and continues to be in pain. States he has been in pain all evening although feels like the medication we are giving him, has helped. Denies any chest pain or vision changes. Was attempting to sleep. A/R: Checked pressure personally. 165/92. Patient appears uncomfortable and in pain. He does have some morphine ordered PRN, which looks like the last time he received that was 19.47. We will give him some morphine and attempt to recheck pressure in 30 minutes. If still elevated, will administer an anti hypertensive. Resident Made aware. Attending note 07/18 did mention Norvasc to 10 mg vs 5 mg. Can consider in AM? 3.50 AM. Patient appears more comfortable, repeat pressure 180/98. Spoke with resident. Hydralazine PO 10 mg. Percocet X 2. Left Wound from BKA also appears like there is some blood Oozing from the bandage. Will sign out to AM team. 6.20 AM: Repeat BP: 160/90
[2016-07-21 04:00] VITALS: BP 180/98
[2016-07-21 06:40] VITALS: BP 160/90
--- NOTE | 2016-07-21 07:15 | PN- Housestaff ---
ELLIOTT PERKINS,DOMITILA 07/21/16 0715: Subjective Follow-up For: Right ankle osteomyelitis, status post right below-knee amputation Complaints: no complaints Subjective: I followed up and examined the patient today. He is comfortable, resting in his bed, not in distress, does not have any complaints. Before I interviewed him, he had recently got a shot of IV morphine, and mentioned that pain management has been good. Overnight, his blood pressure was high, otherwise no significant event. Surgical team is also following the patient. Review of Systems Constitutional: Reports: no symptoms. Objective Last 24 Hrs of Vital Signs/I&O Vital Signs Date Time Temp Pulse Resp B/P B/P Pulse O2 O2 Flow FiO2 Mean Ox Delivery Rate 07/21 1436 98.8 89 20 140/80 95 Room Air 07/21 1017 92 160/80 07/21 1000 98.8 92 18 160/80 96 Room Air 07/21 0640 98.7 91 20 160/90 95 Room Air 07/21 0400 88 180/98 07/21 0400 88 180/98 07/21 0255 99.1 93 20 180/100 97 Room Air 07/20 2226 98.9 98 20 182/100 94 Room Air 07/20 2026 98.6 97 20 180/100 98 Room Air Intake & Output 07/21 1600 07/21 0800 07/21 0000 Intake Total 560 230 700 Output Total 850 0 500 Balance -290 230 200 Intake, IV 130 300 Intake, Oral 560 100 400 Number 0 Bowel Movements Output, Urine 850 0 500 Physical Exam General Appearance: Alert, Oriented X3, Cooperative, No Acute Distress, obese Other Physical Findings: HEENT: Mucous Membr. moist/pink Cardiovascular: Regular Rate, No Murmurs Lungs: Clear to Auscultation Abdomen: Normal Bowel Sounds, Soft, No Tenderness Neurological: Normal Speech, Cranial Nerves 3-12 NL Extremities: right leg BKA with dressing in situ, no soakage at the time of examination this morning. Current Medications: Current Medications Sig/Angela Start time Last Medication Dose Route Stop Time Status Admin Acetaminophen 650 MG Q6P PRN 07/20 1330 AC PO Amlodipine Besylate 5 MG DAILY 07/21 1000 AC 07/21 PO 1017 Ampicillin Sodium/ 3,000 MG Q6H 07/20 2200 DC 07/21 Sulbactam Sodium IV 05/16 0429 0236 Sodium Chloride 100 ML Atorvastatin Calcium 20 MG 1700 07/20 1700 07/21 PO 1723 Benzonatate 100 MG TIDPRN PRN 07/20 1330 AC PO Docusate Sodium 100 MG .STK-MED ONE 07/21 1011 DC PO 07/21 1012 Docusate Sodium 100 MG DAILY NEEDED PRN 07/20 1330 AC 07/21 PO 1016 Enoxaparin Sodium 40 MG DAILY 07/21 1000 07/21 SC 1015 Guaifenesin 10 ML Q6P PRN 07/20 1330 AC PO Hydralazine HCl 10 MG ONCE ONE 07/21 0400 DC 07/21 PO 07/21 0401 0400 Insulin Aspart 0 TIDAC/HS 07/20 1700 AC 07/21 SC 1725 Insulin Detemir 20 UNITS BID 07/21 2200 AC SC Insulin Detemir 10 UNITS ONCE ONE 07/21 1330 DC 07/21 SC 07/21 1331 1401 Insulin Detemir 10 UNITS BID 07/20 2200 W[place] 07/21 SC 1016 Ketorolac 30 MG ONCE PRN 07/20 2045 AC 07/20 Tromethamine IV 2055 Lisinopril 40 MG DAILY 07/21 1000 07/21 PO 1017 Melatonin 5 MG AT BEDTIME 07/20 2200 07/20 PO 2057 Morphine Sulfate 2 MG Q3P PRN 07/20 1345 07/21 IV 0811 Oxycodone/ 2 TAB Q4P PRN 07/21 1400 AC 07/21 Acetaminophen PO 1758 Oxycodone/ 1 TAB Q4P PRN 07/20 1345 07/20 Acetaminophen PO 1817 Oxycodone/ 2 TAB Q6P PRN 07/20 1330 W[place] 07/21 Acetaminophen PO 1017 Patient Medication 1 UNIT 1000 07/21 1000 [place] 07/21 [facility] ED 07/21 1001 0815 Patient Medication 1 UNIT 1000 07/21 1000 [place] 07/21 [facility] ED 07/21 1001 0815 Patient Medication 1 UNIT 1000 07/21 1000 [place] 07/21 [facility] ED 07/21 1001 0815 Last 24 Hrs of Lab/Ramin Results Last 24 Hrs of Labs/Mics: Laboratory Tests 07/21/16 0603: Anion Gap 9, Estimated GFR > 60, BUN/Creatinine Ratio 26.0 H, CBC w Diff NO MAN DIFF REQ, RBC 3.35 L, MCV 87.5, MCH 29.6, RDW 14.9 H, MPV 7.9, Gran % 77.6 H, Lymphocytes % 13.0 L, Monocytes % 8.4, Eosinophils % 0.7, Basophils % 0.3, Absolute Granulocytes 12.6 H, Absolute Lymphocytes 2.1, Absolute Monocytes 1.4 H, Absolute Eosinophils 0.1, Absolute Basophils 0.1, PUBS MCHC 33.8 Assessment/Plan Assessment: This is 45 year old male with past medical history of diabetes who was treated for right lower extremity osteomyelitis/infected right foot plantar ulcer requiring amputation of right great toe s/p 4 weeks course of IV Unasyn with placement of wound VAC. Problem list #1 Acute osteomyelitis right foot. on IV unasyn. s/p right-sided below-knee amputation on . #2 lightheadedness/dizziness. Most likely vasovagal. Ruled out ACS. #3 history of hypertension. On lisinopril and amlodipine. #4 history of diabetes mellitus. Holding metformin, Januvia. On Novolog SS and Levemir. PLAN * Monitor vitals closely * IV Unasyn continued for one day after BKA yesterday per surgical team. Has been discontinued today. Will follow off antibiotics. * Podiatry, Vascular, ID on board - appreciate recs * Blood cultures 2 and Urine cx: negative (final); according to surgical team, sample was sent for pathology but not for culture yesterday, as the line of amputation was well above the area of osteomyelitis. * Dose of Levemir increased to 20 units BID, home dose * Continue NovoLog sliding scale * Continue lisinopril 40 mg daily for HTN * Accu-Cheks before each meal and at bedtime * Adequate pain management * DVT prophylaxis: Subcutaneous Lovenox * Pain plan: Patient now has 1 Percocet tablet for moderate pain and 2 Percocet tablets for severe pain. For breakthrough pain despite this he can have IV morphine. Plan to discharge patient on oral analgesics tomorrow. * Patient is full code Problem List: 1. Osteomyelitis 2. S/P BKA (below knee amputation) unilateral 3. Obesity 4. Hypertension 5. Diabetes mellitus Pain Ratin Pain Location: rt leg stump Pain Goal: Pain 4 or less Pain Plan: Patient now has 1 Percocet tablet for moderate pain and 2 Percocet tablets for severe pain. For breakthrough pain despite this he can have IV morphine. Tomorrow's Labs & Rationales: CBC Consulting Request: Consulting Specialty: Podiatry HANK PERKINS,KEVENJudi 07/21/16 1222: Attending MD Review Statement Attending Statement Attending MD Statement: examined this patient, discuss w/resident/PA/TRACK LABORER, agreed w/resident/PA/TRACK LABORER, reviewed EMR data (avail), discussed with nursing, discussed with case mgmt, amended to note Attending Assessment/Plan: Patient seen and examined. Resting comfortably a motility acute distress. No issues overnight. He underwent right BKA yesterday with no reported complications. Pain is controlled on current regimen. He was hypertensive this morning but blood pressure is improving on his home medication regimen. On examination he is not in any acute distress. Surgical dressing is intact. There are no further plans for intervention by the podiatry of vascular surgery service. Recommendations: We'll continue pain control. Begin physical therapy. His anemia is likely secondary to expected blood loss. His leukocytosis is likely reactive. Repeat CBCs tomorrow to ensure that his hemoglobin levels are stable. Anticipate discharge in the next 24-[facility]. Blood glucose levels are poorly controlled. He was on a higher dose of insulin as well as metformin and Januvia as an outpatient. Recommend increasing his insulin dose to his outpatient dose and monitor for improvement of his blood glucose levels. Give and additional 10 units of Levemir this afternoon to supplement his a.m. dose.
--- NOTE | 2016-07-21 07:16 | Discharge Summary ---
Visit Information Visit Dates Admission Date: 07/13/16 Discharge Date: 07/30/16 Hospital Course Course Attending Physician: DAILY MCKINNEY M.D Primary Care Physician: SANDIE NEELY MD Consulting Request: 1 Consulting Specialty: Podiatry Consulting Request: 2 Consulting Specialty: Thoracic/Vascular Surgery Consulting Physician: Dr. Harrison Reason for Consult: Advanced osteomyelitis for BKA Rt Hospital Course: This is 45 year old male with past medical history of diabetes who was treated for right lower extremity osteomyelitis/infected right foot plantar ulcer requiring amputation of right great toe s/p 4 weeks course of IV Unasyn with placement of wound VAC. However the osteomyelitis did not resolve and showed extensive extension Relevant labs white count of 19.4, 3 bands, H/H of 12.9/37.3, platelet of 378. Sodium noted to be 133, potassium of 5.1, BUN and creatinine 18/0.9, lactic acid elevated at 2.7, glucose 212. EKG showed normal sinus rhythm with a rate of 87, no acute T-wave changes. MRI of the ankle showed acute osteomyelitis involving the talus, calcaneus as well as navicular and cuboid bones with adjacent soft tissue edema consistent with cellulitis. There was also probable cutaneous ulcer over the posterior medial aspect of the ankle, diffuse abnormal signal throughout the tendon sheaths and plantar musculature consistent with inflammatory changes. Patient was admitted to telemetry floor and later transferred to general medicine floor where he was managed for the following conditions. Lightheadedness/dizziness. It was most likely vasovagal. Troponins [address]-T wave changes on serial EKGs. RCRI index score is 2 he has 6.6% risk of major cardiac event He was cleared for surgery by cardiology Acute osteomyelitis right foot Patient was started on IV unasyn. Humidifier Maintenance Worker, Dr. Dowd, vascular surgeon and infectious disease specialist, Larry Cao MD were on board. Blood cultures were negative. Given advancement in osteomyelitis it was agreed that the patient benefits from below knee amputation on 07/20/16. He had the procedure on July 20 without any complications. Patient has been improving well and is being discharged to short-term rehabilitation to start physical rehabilitation and also plans for prosthesis. He will need vascular follow up for suture removal on 08/04/16 Persistent leukocytosis Patient had low-grade fever and an increasing white blood cell counts for which case we suspected infection. He had multiple blood and urine cultures which were negative. We did ultrasound of the surgical stump to try to look for abnormal fluid collection that was negative as well. We continued to monitor the patient off antibiotics. CT abdomen showed Distended bladder, Mild bilateral perinephric stranding. No additiional inflammation was seen. UA did not show evidence of infection. His other work up and imaging studies including X ray chest and cultures are negative. He was followed off of abx. His elevated white count was thought to be secondary to persistent urinary retention for which he was on straight cath protocol. Even though his white count was elevated , we beleive he is medically stable for discharge and his white count will eventually trend down. He will need to be continued on a straight cath protocol while in residential and repeat CBC on Wednesday( 08/03/16). His white count upon discharge was 20.7 and Hb 8.6. He will need outpatient ID follow-up if white count remains elevated. Hypertension Patient has history of hypertension. He takes lisinopril and amlodipine at home which were continued during the course of this admission. Some point when he had pain blood pressure was in the higher side and required hydralazine for better control. However most of the time blood pressure remained within range, will discharge the patient on his home antihypertensive medications. Diabetes mellitus. Patient has history of diabetes mellitus. Lengthy see our diabetes was uncontrolled and HbA1c was around 12 however repeated HbA1c before admission was around 7. At home the patient takes metformin, Januvia and Levemir insulin 25 units. During the course of the admission we held the oral antidiabetic medications and the patient was kept on Levemir and insulin sliding scale before meals. Monitor blood sugars and slowly introduce Januvia as needed with fingersticks check twice a day Urinary retention: Could be multifactorial due to multifactorial, secondary to pain, pain medication and bedrest, with a possible component of his diabetes. He was maintained on a straigth cath protocol Q 8 which should be continued while he is in STR. Spontaneous voiding should be encouraged and post void residual urine should be checked. If Post void residua is > 300 ml he will need straight cath. Complications: None Allergies: Coded Allergies: cephalexin (From KEFLEX) (Intermediate, HIVES 04/29/16) adhesive (Mild, IRRITATION 04/29/16) Significant Procedures: Right below-knee amputation (07/20/16) due to chronic osteomyelitis with infection of multiple bones of the foot and heel/ankle refractory to antibiotic therapy Ankle MRI 1. Acute osteomyelitis involving talus and calcaneus as well as possibly the navicula and cuboid. Extensive adjacent soft tissue edema and inflammatory change, consistent with cellulitis. 2. Probable cutaneous ulcer over the posteromedial aspect of the ankle. 3. Diffuse abnormal signal throughout the tendon sheaths and plantar musculature consistent with associated infectious/inflammatory change. Pertinent Lab Results: Laboratory Tests 07/22 07/21 0600 0603 Chemistry Sodium (137 - 145 mmol/L) 134 L Potassium (3.5 - 5.1 mmol/L) 3.9 Chloride (98 - 107 mmol/L) 98 Carbon Dioxide (22 - 30 mmol/L) 27 Anion Gap (5 - 16) 9 BUN (9 - 20 mg/dL) 13 Creatinine (0.7 - 1.2 mg/dL) 0.5 L Estimated GFR (>60 ml/min) > 60 BUN/Creatinine Ratio (7 - 25 %) 26.0 H Hematology CBC w Diff NO MAN DIFF REQ NO MAN DIFF REQ WBC (4.8 - 10.8 /CUMM) 19.9 H 16.2 H RBC (4.70 - 6.10 /CUMM) 3.05 L 3.35 L Hgb (14.0 - 18.0 G/DL) 9.0 L 9.9 L Hct (42 - 52 %) 26.7 L 29.3 L MCV (80.0 - 94.0 FL) 87.6 87.5 MCH (27.0 - 31.0 PG) 29.4 29.6 RDW (11.5 - 14.5 %) 15.1 H 14.9 H Plt Count (130 - 400 /CUMM) 289 283 MPV (7.4 - 10.4 FL) 8.3 7.9 Gran % (42.2 - 75.2 %) 82.0 H 77.6 H Lymphocytes % (20.5 - 51.1 %) 8.6 L 13.0 L Monocytes % (1.7 - 9.3 %) 8.3 8.4 Eosinophils % (0 - 5 %) 0.9 0.7 Basophils % (0.0 - 2.0 %) 0.2 0.3 Absolute Granulocytes (1.4 - 6.5 /CUMM) 16.4 H 12.6 H Absolute Lymphocytes (1.2 - 3.4 /CUMM) 1.7 2.1 Absolute Monocytes (0.10 - 0.60 /CUMM) 1.7 H 1.4 H Absolute Eosinophils (0.0 - 0.7 /CUMM) 0.2 0.1 Absolute Basophils (0.0 - 0.2 /CUMM) 0 0.1 PUBS MCHC (33.0 - 37.0 G/DL) 33.6 33.8 Disposition Summary Disposition Principal Diagnosis: Osteomyelitis of the foot status post BKA on 07/20/2016 Diabetes mellitus Persistent leukocytosis Urinary Retention (multifactorial) Additional Diagnosis: Hypertension Discharge Disposition: SNF Discharge Instructions General Discharge Information Code Status: Full Code Patient's Diet: Consistent carbohydrate three diet Patient's Activity: As tolerated Follow-Up Instructions/Appts: Please call and make a follow-up with vascular surgeon Dr. Harrison two weeks after procedure (procedure done on 07/20) for stitches removal. Please call and make a follow-up with your primary care physician within one week after discharge Please check CBC specifically white count and hematocrit on Wednesday, August 03. Patient has persistent leukocytosis and discharge white count is 20,000 and discharge hemoglobin of 8. If white count is rising will need follow-up with infectious diseases Larry Cao MD. Please follow straight cath protocol. Medications at Discharge Discharge Medications: Stop taking the following medications: Sitagliptin Phosphate (Januvia) 100 MG TABLET ORAL DAILY Continue taking these medications: Lovastatin (Lovastatin) 20 MG TABLET 1 Tablet ORAL DAILY Qty = 30 Comments: Last Taken: 07/29/16 Time: 1000 Lisinopril (Lisinopril) 40 MG TABLET 1 Tablet ORAL DAILY Comments: Last Taken: 07/30/16 Time: 10AM Metformin HCl (Metformin HCl) 500 MG TABLET 1 Tablet ORAL TWICE DAILY Comments: NOT GIVEN IN HOSPITAL Insulin Detemir (Levemir Flextouch) 100 UNIT/ML (3 ML) INSULN.PEN 25 Units Inject into fatty tissue TWICE DAILY Comments: Last Taken: 07/30/16 Time: 10AM Amlodipine Besylate (Amlodipine Besylate) 5 MG TABLET 1 Tablet ORAL DAILY Comments: Last Taken:07/30/16 Time: 10AM Start taking the following new medications: Acetaminophen (Tylenol) 325 MG TABLET 650 Milligram ORAL EVERY SIX HOURS NEEDED as needed for PAIN SCALE 1-3 ( MILD) Qty = 20 No Refills Instructions: TAKE ONE TAB FOR MILD (1-3/10 PAIN SCALE) Comments: NOT GIVEN IN HOSPITAL Benzonatate (Benzonatate) 100 MG CAPSULE 100 Milligram ORAL THREE TIMES A DAY NEEDED as needed for COUGH Qty = 10 No Refills Comments: NOT GIVEN IN HOSPITAL Docusate Sodium (Docusate Sodium) 100 MG CAPSULE 100 Milligram ORAL DAILY NEEDED as needed for CONSTIPATION Qty = 15 No Refills Comments: NOT GIVEN IN HOSPITAL Oxycodone HCl (Oxycodone HCl) 5 MG TABLET 5 Milligram ORAL EVERY SIX HOURS NEEDED as needed for PAIN SCALE 4-6 ( MODERATE) Qty = 30 No Refills Oxycodone HCl (Oxycodone HCl) 5 MG TABLET 10 Milligram ORAL EVERY 6 HOURS NEEDED as needed for PAIN SCALE 7-10 ( SEVERE) Qty = 30 No Refills Gabapentin (Gabapentin) 100 MG CAPSULE 100 Milligram ORAL Every 12 hours as needed as needed for ANXIETY Qty = 60 No Refills Escitalopram Oxalate (Lexapro) 5 MG TABLET 5 Milligram ORAL DAILY Qty = 30 No Refills Simethicone (Simethicone) 80 MG TAB.CHEW 80 Milligram ORAL EVERY 8 HOURS NEEDED as needed for GI UPSET/FLATULANCE Qty = 30 No Refills Polyethylene Glycol 3350 (Miralax) 17 GRAM/DOSE POWDER 17 Gram ORAL DAILY as needed for CONSTIPATION Qty = 15 No Refills Sennosides/Docusate Sodium (Senna Plus Tablet) 8.6 MG-50 MG TABLET 2 Tablet ORAL DAILY as needed for CONSTIPATION Qty = 30 No Refills Melatonin (Melatonin) 5 MG TABLET 10 Milligram ORAL AT BEDTIME as needed for SLEEP Qty = 15 No Refills Ferrous Sulfate (Slow Fe) 142 MG (45 MG IRON) TABLET.ER 1 Tablet ORAL DAILY Qty = 30 No Refills Comments: NOT GIVEN IN HOSPITAL Copies To: TERRY DOWD DPM; DAMIÁN PERKINS,VARSHA Altman MD Review Statement Documenting Attending: DAILY MCKINNEY M.D Other Findings: I have reviewed the discharge summary
--- NOTE | 2016-07-21 08:38 | NUR ---
0300 B/P 180/100.REPORTED TO SCREEN PRINTING PASTER. 0305 SEEN & EXAMINED BY SCREEN PRINTING PASTER.TO GIVEN PT PAIN MED & RECHECK B/P IN HALF AN HOUR.MORPHINE 2MG IV GIVEN. 0400 PT STILL IN PAIN.B/P REMAINS HIGH.180/98.NEW ORDER RECEIVED.PERCOCET 2 TABS PO GIVEN FOR PAIN 11/15.B/P MED ALSO GIVEN. 0600 B/P 160/90 NOW.INERN AWARED.DOSING .
--- NOTE | 2016-07-21 08:45 | NUR ---
0300 B/P 180/100.REPORTED TO IMMIGRATION GUARD.PT IN PAIN BUT REFUSED PAIN MED. 0305 SEEN & EXAMINED BY IMMIGRATION GUARD.B/P REMAINS HIGH.TO GIVE PT PAIN MED & RECHECKED B/P IN 30 MINS. 0330 BLEEDING NOTED IN RT.STUMP.IMMIGRATION GUARD AWARED. 0315 MORPHINE 2MG IV GIVEN. 0345 B/P 180/98 BY IMMIGRATION GUARD.NO RELIEF FROM MORPHINE.NEW ORDER RECEIVED. 0400 B/P MED & PERCOCET GIVEN ORDERED. 0500 SETTLED TO SLEEP. 0600 B/P 160/90 IMMIGRATION GUARD AWARED.
[2016-07-21 08:50] LABS: ABSOLUTE BASOPHIL COUNT 0.1 /CUMM (0.0-0.2); ABSOLUTE EOSINOPHIL COUNT 0.1 /CUMM (0.0-0.7); ABSOLUTE LYMPH COUNT 2.1 /CUMM (1.2-3.4); ABSOLUTE MONOCYTE COUNT 1.4 /CUMM (0.10-0.60); BASOPHIL % 0.3 % (0.0-2.0); MEAN CORPUSCULAR VOLUME 87.5 FL (80.0-94.0)
[2016-07-21 09:16] LABS: ABSOLUTE GRANULOCYTE CT 12.6 /CUMM (1.4-6.5); EOSINOPHIL % 0.7 % (0-5); GRANULOCYTE % 77.6 % (42.2-75.2); MEAN CORPUSCULAR HGB 29.6 PG (27.0-31.0); MEAN CORPUSCULAR HGB CONC 33.8 G/DL (33.0-37.0); MEAN PLATELET VOLUME 7.9 FL (7.4-10.4); PLATELET COUNT 283 /CUMM (130-400); RBC DISTRIBUTION WIDTH 14.9 % (11.5-14.5); RED BLOOD CELL CT 3.35 /CUMM (4.70-6.10); WHITE BLOOD CELL COUNT 16.2 /CUMM (4.8-10.8)
[2016-07-21 09:20] LABS: HEMATOCRIT 29.3 % (42-52)
--- NOTE | 2016-07-21 09:49 | PN- Vascular Surgery ---
Subjective Subjective: pain is controlled. feeling a little "weak". not lightheaded or dizzy. no cp or sob. not oob yet. Objective Vital Signs and I&Os Vital Signs Date Time Temp Pulse Resp B/P B/P Pulse O2 O2 Flow FiO2 Mean Ox Delivery Rate 07/21 0640 98.7 91 20 160/90 95 Room Air 07/21 0400 88 180/98 07/21 0400 88 180/98 07/21 0255 99.1 93 20 180/100 97 Room Air 07/20 2226 98.9 98 20 182/100 94 Room Air 07/20 202 98.6 97 20 180/100 98 Room Air 07/20 1540 96.0 94 18 150/90 93 Room Air Intake & Output 07/21 1600 07/21 0800 07/21 0000 07/20 1600 07/20 0800 07/20 0000 Intake Total 230 700 275 500 200 Output Total 0 500 650 600 Balance 230 200 -375 -100 200 Intake, IV 130 300 275 500 200 Intake, Oral 100 400 0 0 Number 0 0 0 Bowel Movements Output, Urine 0 500 650 600 Physical Exam: wdwn aox3, nad RLE- dressing with small amount of brb staining medial/posterior aspect. knee in extension. Results Last 48 Hours of Labs: Laboratory Tests 07/21 07/20 0603 0635 Chemistry Sodium (137 - 145 mmol/L) 134 L Potassium (3.5 - 5.1 mmol/L) 3.9 Chloride (98 - 107 mmol/L) 98 Carbon Dioxide (22 - 30 mmol/L) 27 Anion Gap (5 - 16) 9 BUN (9 - 20 mg/dL) 13 Creatinine (0.7 - 1.2 mg/dL) 0.5 L Estimated GFR (>60 ml/min) > 60 BUN/Creatinine Ratio (7 - 25 %) 26.0 H Hematology CBC w Diff NO MAN DIFF REQ NO MAN DIFF REQ WBC (4.8 - 10.8 /CUMM) 16.2 H 11.0 H RBC (4.70 - 6.10 /CUMM) 3.35 L 4.35 L Hgb (14.0 - 18.0 G/DL) 9.9 L 12.8 L Hct (42 - 52 %) 29.3 L 37.8 L MCV (80.0 - 94.0 FL) 87.5 86.8 MCH (27.0 - 31.0 PG) 29.6 29.3 RDW (11.5 - 14.5 %) 14.9 H 14.9 H Plt Count (130 - 400 /CUMM) 283 323 MPV (7.4 - 10.4 FL) 7.9 8.0 Gran % (42.2 - 75.2 %) 77.6 H 64.7 Lymphocytes % (20.5 - 51.1 %) 13.0 L 20.6 Monocytes % (1.7 - 9.3 %) 8.4 7.8 Eosinophils % (0 - 5 %) 0.7 6.4 H Basophils % (0.0 - 2.0 %) 0.3 0.5 Absolute Granulocytes (1.4 - 6.5 /CUMM) 12.6 H 7.1 H Absolute Lymphocytes (1.2 - 3.4 /CUMM) 2.1 2.3 Absolute Monocytes (0.10 - 0.60 /CUMM) 1.4 H 0.9 H Absolute Eosinophils (0.0 - 0.7 /CUMM) 0.1 0.7 Absolute Basophils (0.0 - 0.2 /CUMM) 0.1 0.1 PUBS MCHC (33.0 - 37.0 G/DL) 33.8 33.8 Assessment/Plan Assessment/Plan POD#1 sp R BKA dressing re enforced. dressing change on POD#3 planned lovenox for prophylaxsis perioperative abx completed pain meds as needed. 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 medical care per primary team. sugars elevated, tighter glycemic control desired
[2016-07-21 10:00] VITALS: BP 160/80
--- NOTE | 2016-07-21 14:12 | PN- Vascular Surgery ---
Surgical Brief Attending Note Brief Attending Note: VASCULAR ATTENDING NOTE: Pt. is now POD #1 s/p R. BKA for infection of diabetic wounds. Pt. with some mild-moderate serosang. drainage on dressing. Otherwise stable. Pain relatively controlled. PE: AF/VSS Ext: + drainage but +motor function A/P 1.) Cont. elevation/compressio 2.) Pain control 3.) For dressing change Wed/Th depending on drainage 4.) Commissioned Police Officer Proesthetics (Link Lopez) to eval.
--- NOTE | 2016-07-21 14:23 | PN- Infect Dx ---
Subjective Subjective: Afebrile. He complains of moderate pain in the right leg. Objective Last 24 Hrs of Vital Signs/I&O Vital Signs Date Time Temp Pulse Resp B/P B/P Pulse O2 O2 Flow FiO2 Mean Ox Delivery Rate 07/21 1017 92 160/80 07/21 1000 98.8 92 18 160/80 96 Room Air 07/21 0640 98.7 91 20 160/90 95 Room Air 07/21 0400 88 180/98 07/21 0400 88 180/98 07/21 0255 99.1 93 20 180/100 97 Room Air 07/20 2226 98.9 98 20 182/100 94 Room Air 07/20 2026 98.6 97 20 180/100 98 Room Air 07/20 1540 96.0 94 18 150/90 93 Room Air Intake & Output 07/21 1600 07/21 0800 07/21 0000 Intake Total 560 230 700 Output Total 850 0 500 Balance -290 230 200 Intake, IV 130 300 Intake, Oral 560 100 400 Number 0 Bowel Movements Output, Urine 850 0 500 Physical Exam Other Physical Findings: He appears moderately uncomfortable secondary to pain Extremities right leg dressing intact Results Last 24 Hours of Lab Results: Laboratory Tests 07/21 0603 Chemistry Sodium (137 - 145 mmol/L) 134 L Potassium (3.5 - 5.1 mmol/L) 3.9 Chloride (98 - 107 mmol/L) 98 Carbon Dioxide (22 - 30 mmol/L) 27 Anion Gap (5 - 16) 9 BUN (9 - 20 mg/dL) 13 Creatinine (0.7 - 1.2 mg/dL) 0.5 L Estimated GFR (>60 ml/min) > 60 BUN/Creatinine Ratio (7 - 25 %) 26.0 H Hematology CBC w Diff NO MAN DIFF REQ WBC (4.8 - 10.8 /CUMM) 16.2 H RBC (4.70 - 6.10 /CUMM) 3.35 L Hgb (14.0 - 18.0 G/DL) 9.9 L Hct (42 - 52 %) 29.3 L MCV (80.0 - 94.0 FL) 87.5 MCH (27.0 - 31.0 PG) 29.6 RDW (11.5 - 14.5 %) 14.9 H Plt Count (130 - 400 /CUMM) 283 MPV (7.4 - 10.4 FL) 7.9 Gran % (42.2 - 75.2 %) 77.6 H Lymphocytes % (20.5 - 51.1 %) 13.0 L Monocytes % (1.7 - 9.3 %) 8.4 Eosinophils % (0 - 5 %) 0.7 Basophils % (0.0 - 2.0 %) 0.3 Absolute Granulocytes (1.4 - 6.5 /CUMM) 12.6 H Absolute Lymphocytes (1.2 - 3.4 /CUMM) 2.1 Absolute Monocytes (0.10 - 0.60 /CUMM) 1.4 H Absolute Eosinophils (0.0 - 0.7 /CUMM) 0.1 Absolute Basophils (0.0 - 0.2 /CUMM) 0.1 PUBS MCHC (33.0 - 37.0 G/DL) 33.8 Last 24 Hours of Ramin Results: No recent cultures Assessment/Plan Impression: Stable status post right BKA yesterday for a nonhealing right foot wound. He remains afebrile, now off Unasyn, which was continued for 2 doses postoperatively. His white blood cell count has increased, likely related to the recent surgery. Suggestion: 1. Follow off antibiotics
[2016-07-21 14:36] VITALS: BP 140/80
[2016-07-21] MEDS ORDERED: PERCOCET 5-3251 EACH PO (16:12)
[2016-07-21] MEDS ORDERED: TYLENOL325 M1 PO (16:12)
--- NOTE | 2016-07-21 16:16 | Patient Discharge Instructions ---
Discharge Instructions General Discharge Information You were seen/treated for: Right ankle osteomyelitis, status post Right below knee amputation You had these procedures: Right-sided below-knee amputation on 07/20/2016 Watch for these problems: Severe pain, soakage of dressing/drainage from the wound site, high grade fever Special Instructions: Dressing changes as follows: Xerofoam, Tefla with SARAH or Kerlex bandage dressing daily as needed. Please hold Sitagliptin for now. Check blood sugar twice daily and if needed in 2-3 days, restart Sitagliptin as before. Patient is going on straight catheter protocol every 8 hours as needed. Please get blood test (CBC) on Wednesday and follow up with Dr Donna Cao ( Infectious Diseases Service) with the results. Follow-up with vascular surgery in 1 week of discharge. Please follow-up with your primary care physician within 7 days of discharge. Please return to emergency if symptoms worsen. Diet Continue normal diet: Yes Recommended Diet: Diabetic Activity Full Activity/No Limits: No Activity Self Limited: Yes (will require prosthesis/assist) Acute Coronary Syndrome Inclusion Criteria At DC or during hospital stay patient has or had the following: ACS DIAGNOSIS No Discharge Core Measures Meds if any: Prescribed or Continued at Discharge Meds if any: NOT Prescribed or Continued at Discharge Congestive Heart Failure Inclusion Criteria At DC or during hospital stay patient has or had the following: CHF DIAGNOSIS No Discharge Core Measures Meds if any: Prescribed or Continued at Discharge Meds if any: NOT Prescribed or Continued at Discharge Cerebrovascular accident Inclusion Criteria At DC or during hospital stay patient has or had the following: CVA/TIA Diagnosis No Discharge Core Measures Meds if any: Prescribed or Continued at Discharge Meds if any: NOT Prescribed or Continued at Discharge Venous thromboembolism Inclusion Criteria VTE Diagnosis No VTE Type NONE VTE Confirmed by (Test) NONE Discharge Core Measures - Per Current guidelines, there needs to be overlap - treatment for the first 5 days of Warfarin therapy. - If discharged on Warfarin prior to 5 days of - overlap therapy, the patient will need to be - assessed for post discharge needs including - *Post discharge parental anticoagulation - *Warfarin and/or parental anticoagulation education - *Follow up date to check INR post discharge At least 5 days overlap therapy as Inpatient No Meds if any: Prescribed or Continued at Discharge Note: Overlap Therapy is Warfarin and Anticoagulant Meds if any: NOT Prescribed or Continued at Discharge
[2016-07-21] MEDS ORDERED: BENZONATATE100 M1 PO (16:24)
[2016-07-21] MEDS ORDERED: DOCUSATE SODIU100 M3 PO (16:24)
[2016-07-21 22:22] VITALS: BP 160/80
[2016-07-22 06:48] VITALS: BP 144/82
--- NOTE | 2016-07-22 07:06 | PN- Housestaff ---
ELLIOTT PERKINS,DOMITILA 07/22/16 0706: Subjective Follow-up For: Right ankle osteomyelitis, status post right below-knee amputation Subjective: I followed up and examined the patient today. He is comfortable, resting in his bed, not in distress, does not have any complaints. Vitals have been stable, and no overnight issues. Of note, his right BKA dressing was soaked overnight, surgical PA is aware and does plan to revise his dressing in presence of vascular surgeon later today. Blood sugar level has been persistantly high so needs revision too. The initial plans of discharging him today has been postponed to at least tomorrow. Review of Systems Constitutional: Reports: no symptoms. Objective Last 24 Hrs of Vital Signs/I&O Vital Signs Date Time Temp Pulse Resp B/P B/P Pulse O2 O2 Flow FiO2 Mean Ox Delivery Rate 07/22 0935 84 148/84 07/22 0934 90 148/84 07/22 0648 98.4 92 22 144/82 97 Room Air 07/21 2222 99.0 96 20 160/80 97 07/21 1436 98.8 89 20 140/80 95 Room Air Intake & Output 07/22 1600 07/22 0800 07/22 0000 Intake Total 100 240 Output Total 1100 Balance -1000 240 Intake, Oral 100 240 Output, Urine 1100 Physical Exam General Appearance: Alert, Oriented X3, Cooperative, No Acute Distress, obese Other Physical Findings: HEENT: Mucous Membr. moist/pink Cardiovascular: Regular Rate, No Murmurs Lungs: Clear to Auscultation Abdomen: Normal Bowel Sounds, Soft, No Tenderness Neurological: Normal Speech, Cranial Nerves 3-12 NL Extremities: right leg BKA with dressing in situ, no soakage at the time of examination this morning. Current Medications: Current Medications Sig/Angela Start time Last Medication Dose Route Stop Time Status Admin Acetaminophen 650 MG Q6P PRN 07/20 1330 AC PO Amlodipine Besylate 5 MG DAILY 07/21 1000 AC 07/22 PO 0934 Atorvastatin Calcium 20 MG 1700 07/20 1700 AC 07/21 PO 1723 Benzonatate 100 MG TIDPRN PRN 07/20 1330 AC PO Docusate Sodium 100 MG DAILY NEEDED PRN 07/20 1330 AC 07/21 PO 1016 Enoxaparin Sodium 40 MG DAILY 07/21 1000 AC 07/22 SC 0936 Guaifenesin 10 ML Q6P PRN 07/20 1330 AC PO Insulin Aspart 0 TIDAC/HS 07/20 1700 AC 07/22 SC 0820 Insulin Detemir 25 UNITS BID 07/22 2200 AC SC Insulin Detemir 5 UNITS ONCE ONE 07/22 1100 DC 07/22 SC 07/22 1101 1058 Insulin Detemir 20 UNITS BID 07/21 2200 DC 07/22 SC 0935 Insulin Detemir 10 UNITS ONCE ONE 07/21 1330 DC 07/21 SC 07/21 1331 1401 Insulin Detemir 10 UNITS BID 07/20 2200 WV 07/21 SC 1016 Ketorolac 30 MG ONCE PRN 07/20 2045 AC 07/20 Tromethamine IV 2055 Lisinopril 40 MG DAILY 07/21 1000 AC 07/22 PO 0935 Melatonin 5 MG AT BEDTIME 07/20 2200 AC 07/21 PO 2213 Morphine Sulfate 2 MG Q3P PRN 07/20 1345 AC 07/21 IV 0811 Oxycodone/ 2 TAB Q4P PRN 07/21 1400 AC 07/22 Acetaminophen PO 0941 Oxycodone/ 1 TAB Q4P PRN 07/20 1345 AC 07/20 Acetaminophen PO 1817 Oxycodone/ 2 TAB Q6P PRN 07/20 1330 WV 07/21 Acetaminophen PO 1017 Senna/Docusate Sodium 2 TAB DAILY 07/22 0900 AC 07/22 PO 1050 Last 24 Hrs of Lab/Ramin Results Last 24 Hrs of Labs/Mics: Laboratory Tests 07/22/16 0600: CBC w Diff NO MAN DIFF REQ, RBC 3.05 L, MCV 87.6, MCH 29.4, RDW 15.1 H, MPV 8.3, Gran % 82.0 H, Lymphocytes % 8.6 L, Monocytes % 8.3, Eosinophils % 0.9, Basophils % 0.2, Absolute Granulocytes 16.4 H, Absolute Lymphocytes 1.7, Absolute Monocytes 1.7 H, Absolute Eosinophils 0.2, Absolute Basophils 0, PUBS MCHC 33.6 Assessment/Plan Assessment: This is 45 year old male with past medical history of diabetes who was treated for right lower extremity osteomyelitis/infected right foot plantar ulcer requiring amputation of right great toe s/p 4 weeks course of IV Unasyn with placement of wound VAC. Problem list #1 Acute osteomyelitis right foot. on IV unasyn. s/p right-sided below-knee amputation on . #2 lightheadedness/dizziness. Most likely vasovagal. Ruled out ACS. #3 history of hypertension. On lisinopril and amlodipine. #4 history of diabetes mellitus. Holding metformin, Januvia. On Novolog SS and Levemir. PLAN * Monitor vitals closely * IV Unasyn continued for one day after BKA. Will follow off antibiotics. * Podiatry, Vascular, ID on board - appreciate recs. * Was for low BP, stroke is/bleeding from right BKA stump. If so, send CBC stat , start IV fluid, and call surgery for possible immediate intervention. * Blood cultures 2 and Urine cx: negative (final); according to surgical team, sample was sent for pathology but not for culture as the line of amputation was well above the area of osteomyelitis. * Continue lisinopril 40 mg daily for HTN * Dose of Levemir increased to 25 units BID, home dose * Continue NovoLog sliding scale. Nutrition consult was already placed and carried out in the admission, and the patient knows about healthy eathing habits. * Accu-Cheks before each meal and at bedtime * Adequate pain management * DVT prophylaxis: Subcutaneous Lovenox * Pain plan: Patient now has 1 Percocet tablet for moderate pain and 2 Percocet tablets for severe pain. For breakthrough pain despite this he can have IV morphine. Plan to discharge patient on oral analgesics tomorrow. Patient seems to be tolerating it well. * Patient is full code, and has diabetic diet. Problem List: 1. Osteomyelitis 2. S/P BKA (below knee amputation) unilateral 3. Diabetes mellitus 4. Hypertension Pain Ratin Pain Location: surgical site Pain Goal: Pain 4 or less Pain Plan: PO prn and IV for severe pain despite taking PO. as yesterday. Tomorrow's Labs & Rationales: CBC Consulting Request: Consulting Specialty: Podiatry DAILY MCKINNEY MD 07/22/16 1135: Attending MD Review Statement Attending Statement Attending MD Statement: examined this patient, discuss w/resident/PA/GEARCASE ASSEMBLER, agreed w/resident/PA/GEARCASE ASSEMBLER, discussed with family, reviewed EMR data (avail), discussed with nursing, discussed with case mgmt, amended to note Attending Assessment/Plan: Seen and examined. Resting comfortably not in any acute distress. Reports some complaints of phantom limb syndrome. Reports pain is controlled on his current regimen. He did well overnight requiring any pain medications to this morning. Denies cough or shortness of breath. Denied diarrhea or dysuria. He is afebrile and hemodynamically stable. Her pressure was elevated last night requiring a dose of hydralazine. Blood pressure is better this morning. His blood glucose levels remain elevated today. He reports that at home his glucose levels tend to run in the 200s. His last A1c is around 7 improved from 12 earlier on in the year. On examination lungs are clear bilaterally. Abdomen is soft and nontender. Surgical site is intact. Recommendations: -His white cell count is likely reactive. We'll continue to monitor daily. -Anemia is likely secondary to expected operative blood loss. He is currently hemodynamically stable. Monitor daily and transfuse if hemoglobin is less than 8 or patient becomes symptomatic. -Patient reports that at home he was on Levemir insulin 25 units twice a day. We will increase his Levemir and give an extra dose of 5 mg this morning. Continue monitoring glucose levels closely. -Continue wound care as recommended by the surgical service. -Reports adequate pain control on current regimen. His pain was elevated this morning as he did not require medications overnight. -Increase amlodipine to 10 mg daily for better blood control starting today. -Anticipate discharge as white cell count is trending downwards and once cleared by the surgical service.
--- NOTE | 2016-07-22 07:56 | PN- Vascular Surgery ---
See Addendum Subjective Subjective: Feeling anxious about daily life status post amputation, pain is controlled with oral pain meds, tolerating diet, working with physical therapy, denies CP/SOB/N/ V/F Objective Vital Signs and I&Os Vital Signs Date Time Temp Pulse Resp B/P B/P Pulse O2 O2 Flow FiO2 Mean Ox Delivery Rate 07/22 0648 98.4 92 22 144/82 97 Room Air 07/21 2222 99.0 96 20 160/80 97 07/21 1436 98.8 89 20 140/80 95 Room Air 07/21 1017 92 160/80 07/21 1000 98.8 92 18 160/80 96 Room Air Intake & Output 07/22 0800 07/22 0000 07/21 1600 07/21 0800 07/21 0000 07/20 1600 Intake Total 100 240 560 230 700 275 Output Total 1100 850 0 500 650 Balance -1000 240 -290 230 200 -375 Intake, IV 130 300 275 Intake, Oral 100 240 560 100 400 0 Number 0 0 Bowel Movements Output, Urine 1100 850 0 500 650 Physical Exam: GEN: NAD CARD: S1-S2 RRR PULM: CTA B ABD: Soft nt nd EXT: RLE Stump dressed, some serous drainage anteriorly and serosanguineous drainage posteriorly weeping through dressing,+ mobility in right hip, TTP overlying incision. RLE calf soft nt, + pedal pulses Results Last 48 Hours of Labs: Laboratory Tests 07/22 07/21 0600 0603 Chemistry Sodium (137 - 145 mmol/L) 134 L Potassium (3.5 - 5.1 mmol/L) 3.9 Chloride (98 - 107 mmol/L) 98 Carbon Dioxide (22 - 30 mmol/L) 27 Anion Gap (5 - 16) 9 BUN (9 - 20 mg/dL) 13 Creatinine (0.7 - 1.2 mg/dL) 0.5 L Estimated GFR (>60 ml/min) > 60 BUN/Creatinine Ratio (7 - 25 %) 26.0 H Hematology CBC w Diff Pending NO MAN DIFF REQ WBC (4.8 - 10.8 /CUMM) Pending 16.2 H RBC (4.70 - 6.10 /CUMM) Pending 3.35 L Hgb (14.0 - 18.0 G/DL) Pending 9.9 L Hct (42 - 52 %) Pending 29.3 L MCV (80.0 - 94.0 FL) Pending 87.5 MCH (27.0 - 31.0 PG) Pending 29.6 RDW (11.5 - 14.5 %) Pending 14.9 H Plt Count (130 - 400 /CUMM) Pending 283 MPV (7.4 - 10.4 FL) Pending 7.9 Gran % (42.2 - 75.2 %) 77.6 H Lymphocytes % (20.5 - 51.1 %) 13.0 L Monocytes % (1.7 - 9.3 %) 8.4 Eosinophils % (0 - 5 %) 0.7 Basophils % (0.0 - 2.0 %) 0.3 Absolute Granulocytes (1.4 - 6.5 /CUMM) 12.6 H Absolute Lymphocytes (1.2 - 3.4 /CUMM) 2.1 Absolute Monocytes (0.10 - 0.60 /CUMM) 1.4 H Absolute Eosinophils (0.0 - 0.7 /CUMM) 0.1 Absolute Basophils (0.0 - 0.2 /CUMM) 0.1 PUBS MCHC (33.0 - 37.0 G/DL) Pending 33.8 FINGERSTICKS: 240, 286, 288, 293 Assessment/Plan Assessment/Plan POD #2 status post right BKA, with postoperative pain controlled with pain medications. PLAN: PO Pain meds as needed PT dc planning Manager Site to see 1st dressing by surgical team- ?today will rut [place]
[2016-07-22 08:14] LABS: ABSOLUTE BASOPHIL COUNT 0 /CUMM (0.0-0.2); ABSOLUTE EOSINOPHIL COUNT 0.2 /CUMM (0.0-0.7); ABSOLUTE GRANULOCYTE CT 16.4 /CUMM (1.4-6.5); ABSOLUTE LYMPH COUNT 1.7 /CUMM (1.2-3.4); ABSOLUTE MONOCYTE COUNT 1.7 /CUMM (0.10-0.60); BASOPHIL % 0.2 % (0.0-2.0); EOSINOPHIL % 0.9 % (0-5); HEMATOCRIT 26.7 % (42-52); MEAN CORPUSCULAR HGB 29.4 PG (27.0-31.0); MEAN CORPUSCULAR HGB CONC 33.6 G/DL (33.0-37.0); MEAN CORPUSCULAR VOLUME 87.6 FL (80.0-94.0); MEAN PLATELET VOLUME 8.3 FL (7.4-10.4); PLATELET COUNT 289 /CUMM (130-400); RBC DISTRIBUTION WIDTH 15.1 % (11.5-14.5); RED BLOOD CELL CT 3.05 /CUMM (4.70-6.10); WHITE BLOOD CELL COUNT 19.9 /CUMM (4.8-10.8)
--- NOTE | 2016-07-22 14:54 | NUR ---
1400- SURG PETRONA RENEE CHANGED DRESSING AT BEDSIDE. DRESSING SOAKED WITH CLOTTED BLOOD. WOUND CLEANED WITH NS. SMALL AREA OF INCISION LINE OOZING BLOOD. DRAINAGE PADS F/B KERLEX F/B SARAH WRAP APPLIED BY SURG PETRONA. LEG TO BE ELEVATED AND DR STEEL TO CHANGE DRESSING TOMORROW. PT NOT TO BE DISCHARGED TODAY DUE TO BLOODY DRAINAGE FROM WOUND AND INCREASED WBC. 1445- PHY THERAPY WORKED WITH PT TODAY. PT IS OOB AX2. WB TO L LEG ONLY.
[2016-07-22 14:58] VITALS: BP 130/80
[2016-07-22 21:29] VITALS: BP 164/90
[2016-07-23 06:39] VITALS: BP 140/90
--- NOTE | 2016-07-23 06:57 | PN- Housestaff ---
ELLIOTT PERKINS,DOMITILA 07/23/16 0657: Subjective Follow-up For: Right ankle osteomyelitis, status post right below-knee amputation Complaints: RASHES OVER FOREHEAD Subjective: I followed up and examined the patient today. He is comfortable, not in distress, resting in his bed. Vitals have been stable. His friend noticed rash is over his forehead yesterday evening and reported it to the night staff. He has 2 ring-like rashes over left side of his forehead which do not itch, appeared suddenly, and is not progressing. He does not remember getting any new food/medicines. Right leg stump is well dressed and does not have any soakage today. Pain is manageable according to the patient, with maximum being 7/10. This AM blood sugar is 254. Insulin Levemir dose was increased from 20 to 25 units twice a day yesterday, but the blood sugar level is still running high. Review of Systems Constitutional: Reports: see HPI. Objective Last 24 Hrs of Vital Signs/I&O Vital Signs Date Time Temp Pulse Resp B/P B/P Pulse O2 O2 Flow FiO2 Mean Ox Delivery Rate 07/23 0639 99.2 98 20 140/90 97 Room Air 07/22 2129 99.0 102 20 164/90 95 Room Air 07/22 1746 74 138/78 07/22 1458 98.8 80 20 130/80 98 07/22 0935 84 148/84 07/22 0934 90 148/84 Intake & Output 07/23 1600 07/23 0800 07/23 0000 Intake Total 240 Output Total 550 Balance -550 240 Intake, Oral 240 Output, Urine 550 Physical Exam General Appearance: Alert, Oriented X3, Cooperative, No Acute Distress, obese Other Physical Findings: HEENT: Mucous Membr. moist/pink Cardiovascular: Regular Rate, No Murmurs Lungs: Clear to Auscultation Abdomen: Normal Bowel Sounds, Soft, No Tenderness Neurological: Normal Speech, Cranial Nerves 3-12 NL Extremities: right leg BKA with dressing in situ, no soakage at the time of examination this morning. Skin: Patient has 2 identical rash is over left side of his forehead, described as ringlike erythematous rash around 2-3 cm with central clearing/blanching, no ulceration/crusting/weeping. The rashes are not itchy either. Current Medications: Current Medications Sig/Angela Start time Last Medication Dose Route Stop Time Status Admin Acetaminophen 650 MG Q6P PRN 07/20 1330 AC PO Amlodipine Besylate 10 MG DAILY 07/23 1000 AC PO Amlodipine Besylate 5 MG ONCE ONE 07/22 1630 MT 07/22 PO 07/22 1631 1746 Amlodipine Besylate 5 MG DAILY 07/21 1000 MT 07/22 PO 0934 Atorvastatin Calcium 20 MG 1700 07/20 1700 AC 07/22 PO 1746 Benzonatate 100 MG TIDPRN PRN 07/20 1330 AC PO Diphenhydramine HCl 1 DANIELLE TID PRN 07/23 0815 AC TOP Docusate Sodium 100 MG DAILY NEEDED PRN 07/20 1330 AC 07/21 PO 1016 Enoxaparin Sodium 40 MG DAILY 07/21 1000 07/22 IA 0936 Guaifenesin 10 ML Q6P PRN 07/20 1330 AC PO Insulin Aspart 0 TIDAC/HS 07/20 1700 AC 07/23 SC 0751 Insulin Detemir 25 UNITS BID 07/22 2200 07/22 SC 2129 Insulin Detemir 5 UNITS ONCE ONE 07/22 1100 MT 07/22 SC 07/22 1101 1058 Insulin Detemir 20 UNITS BID 07/21 2200 MT 07/22 SC 0935 Ketorolac 30 MG ONCE PRN 07/20 2045 07/20 Tromethamine IV 2055 Lisinopril 40 MG DAILY 07/21 1000 07/22 PO 0935 Melatonin 5 MG AT BEDTIME 07/20 2200 07/22 PO 2234 Morphine Sulfate 2 MG Q3P PRN 07/20 1345 07/21 IV 0811 Oxycodone/ 2 TAB Q4P PRN 07/21 1400 AC 07/23 Acetaminophen PO 0545 Oxycodone/ 1 TAB Q4P PRN 07/20 1345 07/20 Acetaminophen PO 1817 Patient Medication 1 ED .STK-MED ONE 07/22 1338 DC Teaching ED 07/22 1339 Senna/Docusate Sodium 2 TAB DAILY 07/22 0900 07/22 PO 1050 Last 24 Hrs of Lab/Ramin Results Last 24 Hrs of Labs/Mics: Laboratory Tests 07/23/16 0815: CBC w Diff NO MAN DIFF REQ, RBC 2.83 L, MCV 86.2, MCH 29.5, RDW 15.0 H, MPV 7.6, Gran % 82.9 H, Lymphocytes % 7.4 L, Monocytes % 8.1, Eosinophils % 1.4, Basophils % 0.2, Absolute Granulocytes 17.5 H, Absolute Lymphocytes 1.6, Absolute Monocytes 1.7 H, Absolute Eosinophils 0.3, Absolute Basophils 0, PUBS MCHC 34.2 Microbiology 07/23 1003 BLOOD: Blood Culture - RECD 07/23 0945 BLOOD: Blood Culture - RECD Assessment/Plan Assessment: This is 45 year old male with past medical history of diabetes who was treated for right lower extremity osteomyelitis/infected right foot plantar ulcer requiring amputation of right great toe s/p 4 weeks course of IV Unasyn with placement of wound VAC. Problem list #1 Acute osteomyelitis right foot. on IV unasyn. s/p right-sided below-knee amputation on . #2 lightheadedness/dizziness. Most likely vasovagal. Ruled out ACS. #3 history of hypertension. On lisinopril and amlodipine. #4 history of diabetes mellitus. Holding metformin, Januvia. On Novolog SS and Levemir. #5 rash new onset, over forehead PLAN * Monitor vitals closely * Patient received IV Unasyn continued for one day after BKA. Following off antibiotics. * Podiatry, Vascular, ID on board - appreciate recs. * Watch out for low BP, as the patient was bleeding from right BKA stump yesterday. If so, send CBC stat, start IV fluid, and call surgery for possible immediate intervention. * FIRST SET: Blood cultures 2 and Urine cx: negative (final); according to surgical team, sample was sent for pathology but not for culture as the line of amputation was well above the area of osteomyelitis. SECOND SET: 2 sets of blood cx sent today considering persistant leukocytosis. * Rash over forehead: Annular, ring like lesions over forehead that was two in number this AM but during rounds another spot was already getting erythematous. Not sure if this is infectious or allergy. So still watching off abx, sent 2 sets of blood cx, also considering increasing WBC, but no fever. Will wait for ID consult. For the sesion, Benadryl cream has been prescribed locally. * Continue lisinopril 40 mg daily for HTN * Dose of Levemir increased to 25 units BID, home dose * NovoLog insulin sliding scale has been increased to high dose from low today. Nutrition consult was already placed and carried out in the admission, and the patient knows about healthy eathing habits. * Accu-Cheks before each meal and at bedtime * Adequate pain management * DVT prophylaxis: Subcutaneous Lovenox * Pain plan: Patient now has 1 Percocet tablet for moderate pain and 2 Percocet tablets for severe pain. For breakthrough pain despite this he can have IV morphine. Plan to discharge patient on oral analgesics tomorrow. Patient seems to be tolerating it well. * Patient is full code, and has diabetic diet. Problem List: 1. Osteomyelitis 2. S/P BKA (below knee amputation) unilateral 3. Diabetes mellitus 4. Hypertension 5. Obesity 6. Skin rash Pain Ratin Pain Location: rt BKA site Pain Goal: Pain 4 or less Pain Plan: PO meds working Tomorrow's Labs & Rationales: CBC for increasing WBC, and f/u cultures Consulting Request: Consulting Specialty: Thoracic/Vascular Surgery Consulting Physician: Dr. Harrison Reason for Consult: Advanced osteomyelitis for BKA Rt DAILY MCKINNEY MD 07/23/16 1125: Attending MD Review Statement Attending Statement Attending MD Statement: examined this patient, discuss w/resident/PA/ARCHIVES TECHNICIAN, agreed w/resident/PA/ARCHIVES TECHNICIAN, reviewed EMR data (avail), discussed with nursing, discussed with case mgmt, amended to note Attending Assessment/Plan: Patient seen and examined. Resting comfortably not in any acute distress. No events overnight reported by nursing staff. He reports significant cramping in the morning following administration of his pain medications pain level comes down to 2. Denies nausea vomiting. Reports good appetite. Denies chest or shortness of breath. Denies cough. Denies dysuria. Denies diarrhea. On examination this morning is found to have erythematous rash developing on his for it. It appears to have progressed within a few hours this morning. It is nonpleuritic. It is nonblanching and is not raised. He has no other rash in any other parts of his body. Blood glucose levels remain elevated despite increasing his insulin dose. White cell count continues to trend upwards. Wound dressing was gone by the surgical service today. The wound site is reported to be healthy and not infected looking. Patient has no other wounds or obvious site of infection on examination. Recommendations: -Increase preprandial insulin coronary to high-dose coverage. -Continue Levemir 25 units twice daily. -Obtain blood cultures. -Blood pressure is controlled on his current regimen. -Continue physical therapy as tolerated. - Patient is noted to be anemic. This is likely secondary to postoperative blood loss. He was reported to be actively bleeding during dressing change yesterday. He is currently hemodynamically stable. His leukocytosis and fever may be reactive secondary to the bleeding and hematoma formation.
--- NOTE | 2016-07-23 08:02 | PN- Vascular Surgery ---
Subjective Subjective: Patient continues to be anxious and apprehensive about getting out of bed. Denies any fever or flulike illness or constitutional symptoms. Pain in the right lower extremity is mild to moderate. No further bloody drainage Objective Vital Signs and I&Os Vital Signs Date Time Temp Pulse Resp B/P B/P Pulse O2 O2 Flow FiO2 Mean Ox Delivery Rate 07/23 0639 99.2 98 20 140/90 97 Room Air 07/22 2129 99.0 102 20 164/90 95 Room Air 07/22 1746 74 138/78 07/22 1458 98.8 80 20 130/80 98 07/22 0935 84 148/84 07/22 0934 90 148/84 Intake & Output 07/23 1600 07/23 0800 07/23 0000 07/22 1600 07/22 0800 07/22 0000 Intake Total 240 720 100 240 Output Total [phone] Balance -550 240 120 -1000 240 Intake, Oral 240 720 100 240 Number 1 Bowel Movements Output, Urine [phone] Physical Exam: Well-developed well-nourished no apparent distress. HEENT: Atraumatic, circular red slightly raised rash noted to left side of the forehead, likely atopic dermatitis from temperature gauge monitoring intraoperative. He states he has sensitivity to some tapes. Patient is asymptomatic, will continue to monitor Respiratory: No respiratory distress Extremities: No edema, right lower extremity below-knee amputee site dressing is clean dry and intact. Neuro: Alert and oriented x3 Psych: Appears anxious, normal memory normal judgment. Skin: Warm and dry, no rash on exposed skin Assessment/Plan Assessment/Plan POD #3 status post right BKA. 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 Harrison leukocytosis: ? reactive, will recheck this am. pt without fever or constitutional sx of infection Blood sugar still consistantly elevated. Adjustments by medicine appreciate. DC planning possibly tomorrow
[2016-07-23 08:34] LABS: ABSOLUTE BASOPHIL COUNT 0 /CUMM (0.0-0.2); ABSOLUTE EOSINOPHIL COUNT 0.3 /CUMM (0.0-0.7); ABSOLUTE GRANULOCYTE CT 17.5 /CUMM (1.4-6.5); ABSOLUTE LYMPH COUNT 1.6 /CUMM (1.2-3.4); ABSOLUTE MONOCYTE COUNT 1.7 /CUMM (0.10-0.60); BASOPHIL % 0.2 % (0.0-2.0); EOSINOPHIL % 1.4 % (0-5); GRANULOCYTE % 82.9 % (42.2-75.2); HEMATOCRIT 24.4 % (42-52); MEAN CORPUSCULAR HGB 29.5 PG (27.0-31.0); MEAN CORPUSCULAR HGB CONC 34.2 G/DL (33.0-37.0); MEAN CORPUSCULAR VOLUME 86.2 FL (80.0-94.0); MEAN PLATELET VOLUME 7.6 FL (7.4-10.4); PLATELET COUNT 281 /CUMM (130-400); RED BLOOD CELL CT 2.83 /CUMM (4.70-6.10); WHITE BLOOD CELL COUNT 21.2 /CUMM (4.8-10.8)
[2016-07-23 13:45] VITALS: BP 140/80
--- NOTE | 2016-07-23 17:20 | PN- Infect Dx ---
Subjective Subjective: MAXIMUM TEMPERATURE 100.9 (this afternoon). He feels fatigued. He does note right leg pain, but offers no other complaints. He has had no diarrhea. Objective Last 24 Hrs of Vital Signs/I&O Vital Signs Date Time Temp Pulse Resp B/P B/P Pulse O2 O2 Flow FiO2 Mean Ox Delivery Rate 07/23 1345 100.9 97 20 140/80 96 Room Air 07/23 0906 140/90 07/23 0904 140/90 07/23 0800 Room Air 07/23 0639 99.2 98 20 140/90 97 Room Air 07/22 2129 99.0 102 20 164/90 95 Room Air 07/22 1746 74 138/78 Intake & Output 07/23 1600 07/23 0800 07/23 0000 Intake Total 480 240 Output Total 600 550 Balance -120 -550 240 Intake, Oral 480 240 Number 1 Bowel Movements Output, Urine 600 550 Physical Exam Other Physical Findings: He appears comfortable in no acute distress Skin 2 ringlike lesions over his left forehead Lungs are clear Heart regular rhythm with no murmur Abdomen is soft, nontender with positive bowel sounds Extremities right foot dressing intact; left leg with no edema Results Last 24 Hours of Lab Results: Laboratory Tests 07/23 0815 Hematology CBC w Diff NO MAN DIFF REQ WBC (4.8 - 10.8 /CUMM) 21.2 H RBC (4.70 - 6.10 /CUMM) 2.83 L Hgb (14.0 - 18.0 G/DL) 8.4 L Hct (42 - 52 %) 24.4 L MCV (80.0 - 94.0 FL) 86.2 MCH (27.0 - 31.0 PG) 29.5 RDW (11.5 - 14.5 %) 15.0 H Plt Count (130 - 400 /CUMM) 281 MPV (7.4 - 10.4 FL) 7.6 Gran % (42.2 - 75.2 %) 82.9 H Lymphocytes % (20.5 - 51.1 %) 7.4 L Monocytes % (1.7 - 9.3 %) 8.1 Eosinophils % (0 - 5 %) 1.4 Basophils % (0.0 - 2.0 %) 0.2 Absolute Granulocytes (1.4 - 6.5 /CUMM) 17.5 H Absolute Lymphocytes (1.2 - 3.4 /CUMM) 1.6 Absolute Monocytes (0.10 - 0.60 /CUMM) 1.7 H Absolute Eosinophils (0.0 - 0.7 /CUMM) 0.3 Absolute Basophils (0.0 - 0.2 /CUMM) 0 PUBS MCHC (33.0 - 37.0 G/DL) 34.2 Last 24 Hours of Ramin Results: Blood cultures July 23 pending Assessment/Plan Impression: Recent fever with increasing white blood cell count now 3 days status post right BKA, with right BKA stump reportedly clean and with no other obvious focus of infection. His H&H has decreased significantly since surgery, raising concern for blood loss or hemolysis and suspect this may be related to his leukocytosis and fever. The ringlike rash on his left forehead appears to be related to some monitor or device that was placed, possibly intraoperatively. Suggestion: 1. Further evaluation of his anemia (to rule out blood loss or hemolysis) per Medicine 2. Would obtain a urinalysis and urine culture 3. Chest x-ray 4. Continue to follow off antibiotics pending above
[2016-07-23 22:34] VITALS: BP 138/80
[2016-07-24 06:50] VITALS: BP 120/80
[2016-07-24 07:46] LABS: ABSOLUTE BASOPHIL COUNT 0 /CUMM (0.0-0.2); ABSOLUTE EOSINOPHIL COUNT 0.2 /CUMM (0.0-0.7); ABSOLUTE GRANULOCYTE CT 18.7 /CUMM (1.4-6.5); ABSOLUTE LYMPH COUNT 1.8 /CUMM (1.2-3.4); ABSOLUTE MONOCYTE COUNT 1.9 /CUMM (0.10-0.60); BASOPHIL % 0.1 % (0.0-2.0); EOSINOPHIL % 0.9 % (0-5); GRANULOCYTE % 82.6 % (42.2-75.2); HEMATOCRIT 23.3 % (42-52); MEAN CORPUSCULAR HGB 29.7 PG (27.0-31.0); MEAN CORPUSCULAR HGB CONC 34.3 G/DL (33.0-37.0); MEAN CORPUSCULAR VOLUME 86.8 FL (80.0-94.0); MEAN PLATELET VOLUME 8.3 FL (7.4-10.4); PLATELET COUNT 311 /CUMM (130-400); RBC DISTRIBUTION WIDTH 14.9 % (11.5-14.5); RED BLOOD CELL CT 2.68 /CUMM (4.70-6.10)
[2016-07-24 08:42] LABS: WHITE BLOOD CELL COUNT 22.7 /CUMM (4.8-10.8)
--- NOTE | 2016-07-24 09:24 | PN- Vascular Surgery ---
Subjective Subjective: Feeling better today than he did yesterday. Pain is mildly better. Objective Vital Signs and I&Os Vital Signs Date Time Temp Pulse Resp B/P B/P Pulse O2 O2 Flow FiO2 Mean Ox Delivery Rate 07/24 0906 99 130/72 07/24 0906 99 130/72 07/24 0650 99.4 100 20 120/80 98 Room Air 07/23 2234 99.7 100 20 138/80 93 Room Air 07/23 1345 100.9 97 20 140/80 96 Room Air Intake & Output 07/24 1600 07/24 0800 07/24 0000 07/23 1600 07/23 0800 07/23 0000 Intake Total 200 480 240 Output Total 600 600 550 Balance -400 -120 -550 240 Intake, Oral 200 480 240 Number 1 Bowel Movements Output, Urine 600 600 550 Physical Exam: Well-developed well-nourished Alert and oriented 3, no acute distress No respiratory distress Forehead rash resolving Right lower extremity stump site dressing clean dry and intact, no surrounding erythema, no discharge or drainage, dressing changed. Naldo wrap applied. Assessment/Plan Assessment/Plan POD # for status post right BKA. 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 It is resolving. Hyperglycemia: Medicine adjusting insulin regimen DC planning , follow-up with vascular surgery 1 week after discharge
--- NOTE | 2016-07-24 10:38 | PN- Housestaff ---
ELLIOTT PERKINS,DOMITILA 07/24/16 1038: Subjective Follow-up For: Right ankle osteomyelitis, status post right below-knee amputation Complaints: no complaints Subjective: I followed up and examined the patient today. He is comfortable, not in distress, does not have any complaints. MAXIMUM TEMPERATURE has been 100.9, no other issues. The rash over his forehead has decreased since yesterday. He has been elevating his right leg persistently. His blood sugar this morning was 226 by fingerstick method. Review of Systems Constitutional: Reports: see HPI, fever. Objective Last 24 Hrs of Vital Signs/I&O Vital Signs Date Time Temp Pulse Resp B/P B/P Pulse O2 O2 Flow FiO2 Mean Ox Delivery Rate 07/24 1404 99.5 95 20 130/60 96 Room Air 07/24 0906 99 130/72 07/24 0906 99 130/72 07/24 0650 99.4 100 20 120/80 98 Room Air 07/23 2234 99.7 100 20 138/80 93 Room Air Intake & Output 07/24 1600 07/24 0800 07/24 0000 Intake Total 600 200 Output Total 400 600 Balance 200 -400 Intake, IV 0 Intake, Oral 600 200 Number 0 Bowel Movements Output, Urine 400 600 Physical Exam General Appearance: Alert, Oriented X3, Cooperative, No Acute Distress, obese Other Physical Findings: HEENT: Mucous Membr. moist/pink Cardiovascular: Regular Rate, No Murmurs Lungs: Clear to Auscultation Abdomen: Normal Bowel Sounds, Soft, No Tenderness Neurological: Normal Speech, Cranial Nerves 3-12 NL Extremities: right leg BKA with dressing in situ, no soakage at the time of examination this morning. Skin: Rash over his forehead has decreased since yesterday but is not completely gone. Current Medications: Current Medications Sig/Angela Start time Last Medication Dose Route Stop Time Status Admin Acetaminophen 650 MG Q6P PRN 07/20 1330 AC PO Amlodipine Besylate 10 MG DAILY 07/23 1000 AC 07/24 PO 0906 Atorvastatin Calcium 20 MG 1700 07/20 1700 AC 07/24 PO 1704 Benzonatate 100 MG TIDPRN PRN 07/20 1330 AC PO Diphenhydramine HCl 1 DANIELLE TID PRN 07/23 0815 AC 07/23 TOP 0907 Docusate Sodium 100 MG DAILY NEEDED PRN 07/20 1330 AC 07/21 PO 1016 Enoxaparin Sodium 40 MG DAILY 07/21 1000 AC 07/24 SC 0905 Guaifenesin 10 ML Q6P PRN 07/20 1330 AC PO Insulin Aspart 0 TIDAC/HS 07/20 1700 AC 07/24 SC 1812 Insulin Detemir 25 UNITS BID 07/22 2200 AC 07/24 SC 0905 Ketorolac 30 MG ONCE PRN 07/20 2045 AC 07/20 Tromethamine IV 205 Lisinopril 40 MG DAILY 07/21 1000 AC 07/24 PO 0906 Melatonin 5 MG AT BEDTIME 07/20 2200 AC 07/23 PO 211 Morphine Sulfate 2 MG Q3P PRN 07/20 1345 AC 07/21 IV 0811 Oxycodone/ 2 TAB Q4P PRN 07/21 1400 AC 07/24 Acetaminophen PO 1704 Oxycodone/ 1 TAB Q4P PRN 07/20 1345 AC 07/20 Acetaminophen PO 1817 Senna/Docusate Sodium 2 TAB DAILY 07/22 0900 AC 07/24 PO 0906 Last 24 Hrs of Lab/Ramin Results Last 24 Hrs of Labs/Mics: Laboratory Tests 07/24/16 1305: Urine Color YEL, Urine Clarity HAZY H, Urine pH 6.5, Ur Specific [place] 1.020, Urine Protein 100 H, Urine Ketones 15 H, Urine Nitrite NEG, Urine Bilirubin NEG, Urine Urobilinogen 1.0, Ur Leukocyte Esterase NEG, Ur Microscopic SEDIMENT EXAMINED, Urine RBC 1-3, Urine WBC 1-3 H, Ur Epithelial Cells MANY H, Urine Bacteria RARE H, Urine Mucus MANY H, Micro UA Comment , Urine Hemoglobin TRACE-INTACT H, Urine Glucose 250 H 07/24/16 0615: CBC w Diff NO MAN DIFF REQ, RBC 2.68 L, MCV 86.8, MCH 29.7, RDW 14.9 H, MPV 8.3, Gran % 82.6 H, Lymphocytes % 8.1 L, Monocytes % 8.3, Eosinophils % 0.9, Basophils % 0.1, Absolute Granulocytes 18.7 H, Absolute Lymphocytes 1.8, Absolute Monocytes 1.9 H, Absolute Eosinophils 0.2, Absolute Basophils 0, PUBS MCHC 34.3 Microbiology 07/24 170 URINE ROUT: Urine Culture - RECD Assessment/Plan Assessment: This is 45 year old male with past medical history of diabetes who was treated for right lower extremity osteomyelitis/infected right foot plantar ulcer requiring amputation of right great toe s/p 4 weeks course of IV Unasyn with placement of wound VAC. Problem list #1 Acute osteomyelitis right foot. on IV unasyn. s/p right-sided below-knee amputation on . #2 lightheadedness/dizziness. Most likely vasovagal. Ruled out ACS. #3 history of hypertension. On lisinopril and amlodipine. #4 history of diabetes mellitus. Holding metformin, Januvia. On Novolog SS and Levemir. #5 rash new onset, over forehead PLAN * Monitor vitals closely * Patient received IV Unasyn continued for one day after BKA. Following off antibiotics. * Podiatry, Vascular, ID on board - appreciate recs. * Watch out for low BP, as the patient was bleeding from right BKA stump yesterday. If so, send CBC stat, start IV fluid, and call surgery for possible immediate intervention. * Patient has had persistent leukocytosis and one episode of fever off 100.9, without any focus. Thus a urine protein exam, culture, chest x-ray has been sent to look for source. Blood cultures were sent yesterday, which needs follow -up. Surgical site doesn't seem to be infected according to surgeon. He is being watched off antibiotics currently. * Rest of the forehead has decreased. Most likely allergic to tape/glue from the instruments that was used during the surgery. * Continue lisinopril 40 mg daily for HTN * Dose of Levemir at 25 units BID, home dose. NovoLog insulin sliding scale at high dose. Nutrition consult was already placed and carried out in the admission , and the patient knows about healthy eathing habits. * Accu-Cheks before each meal and at bedtime * Adequate pain management * DVT prophylaxis: Subcutaneous Lovenox * Pain plan: Patient now has 1 Percocet tablet for moderate pain and 2 Percocet tablets for severe pain. For breakthrough pain despite this he can have IV morphine. Plan to discharge patient on oral analgesics. Patient seems to be tolerating it well. * Patient is full code, and has diabetic diet. Problem List: 1. Osteomyelitis 2. S/P BKA (below knee amputation) unilateral 3. Diabetes mellitus 4. Hypertension 5. Skin rash 6. Obesity Pain Ratin Pain Location: right leg stump, surgery site Pain Goal: Pain 4 or less Pain Plan: prn PO Tomorrow's Labs & Rationales: CBC, BEP, f/u h/h and K, Na Consulting Request: Consulting Specialty: Thoracic/Vascular Surgery Consulting Physician: Dr. Harrison Reason for Consult: Advanced osteomyelitis for BKA Rt HANK PERKINS,ANDRZEJESMEJudi 07/24/16 1138: Attending MD Review Statement Attending Statement Attending MD Statement: examined this patient, discuss w/resident/PA/ENERGY TECHNICIAN, agreed w/resident/PA/ENERGY TECHNICIAN, reviewed EMR data (avail), discussed with nursing, discussed with case mgmt, amended to note Attending Assessment/Plan: Patient seen and examined. Resting comfortably and not in any acute distress. No events overnight. He was febrile yesterday afternoon with a MAXIMUM TEMPERATURE of 100.9. He has been afebrile since then. His facial rash has resolved. He complains of some dizziness with position change but this is only transient. Denies chest pain or shortness of breath. Denies cough denies dysuria or diarrhea. He has intact dressing over the right stump. Left leg is without edema or tenderness. Problems: 1. Osteomyelitis right foot. Status post right BKA. 2. Postoperative fever; MAXIMUM TEMPERATURE 100.9 yesterday afternoon. 3. Postoperative blood loss anemia 4. Facial rash; resolved. Probably secondary to the tape on intraoperative temperature monitoring device. 6. Insulin-dependent diabetes mellitus; blood glucose levels improving. Plan: -In view of fever yesterday panculture patient. Follow blood cultures. Obtain urine cultures and -urinalysis. Check chest x-ray. There is no evidence of surgical site infection or reports of the vascular surgery service. -His anemia is was likely secondary to blood loss. There is no evidence of bleeding anywhere else. He shows no evidence of hemolysis. Add on an LDH to labs to confirm this. Check stool guaiac. -Recommend transfusion one unit of PRBC if hemoglobin level trends below 8 point patient becomes increasingly symptomatic. -Continue to hold off on antibiotic therapy per recommendations of the ID service. -His blood glucose levels are improving. He is currently on high-dose sliding scale coverage and Levemir 25 units twice daily. Blood glucose should improve further upon discharge once his metformin and Januvia are resumed.
--- NOTE | 2016-07-24 11:07 | PN- Infect Dx ---
Subjective Subjective: MAXIMUM TEMPERATURE 100.9. He continues to note some discomfort in the right leg. He feels anxious but otherwise is without complaints Objective Last 24 Hrs of Vital Signs/I&O Vital Signs Date Time Temp Pulse Resp B/P B/P Pulse O2 O2 Flow FiO2 Mean Ox Delivery Rate 07/24 0906 99 130/72 07/24 0906 99 130/72 07/24 0650 99.4 100 20 120/80 98 Room Air 07/23 2234 99.7 100 20 138/80 93 Room Air 07/23 1345 100.9 97 20 140/80 96 Room Air Intake & Output 07/24 1600 07/24 0800 07/24 0000 Intake Total 200 Output Total 600 Balance -400 Intake, Oral 200 Output, Urine 600 Physical Exam Other Physical Findings: He appears anxious but in no acute distress Lungs decreased breath sound bilaterally Heart regular rhythm with no murmur Abdomen is obese, soft, nontender with positive bowel sounds Extremities right leg dressing intact; wound reportedly clean when examined earlier today Results Last 24 Hours of Lab Results: Laboratory Tests 07/24 614 Hematology CBC w Diff NO MAN DIFF REQ WBC (4.8 - 10.8 /CUMM) 22.7 H RBC (4.70 - 6.10 /CUMM) 2.68 L Hgb (14.0 - 18.0 G/DL) 8.0 L Hct (42 - 52 %) 23.3 L MCV (80.0 - 94.0 FL) 86.8 MCH (27.0 - 31.0 PG) 29.7 RDW (11.5 - 14.5 %) 14.9 H Plt Count (130 - 400 /CUMM) 311 MPV (7.4 - 10.4 FL) 8.3 Gran % (42.2 - 75.2 %) 82.6 H Lymphocytes % (20.5 - 51.1 %) 8.1 L Monocytes % (1.7 - 9.3 %) 8.3 Eosinophils % (0 - 5 %) 0.9 Basophils % (0.0 - 2.0 %) 0.1 Absolute Granulocytes (1.4 - 6.5 /CUMM) 18.7 H Absolute Lymphocytes (1.2 - 3.4 /CUMM) 1.8 Absolute Monocytes (0.10 - 0.60 /CUMM) 1.9 H Absolute Eosinophils (0.0 - 0.7 /CUMM) 0.2 Absolute Basophils (0.0 - 0.2 /CUMM) 0 PUBS MCHC (33.0 - 37.0 G/DL) 34.3 Last 24 Hours of Ramin Results: Blood cultures July 23 negative Assessment/Plan Impression: Recent fever with increasing white blood cell count now 4 days status post right BKA, with right BKA stump reportedly clean and with no other obvious focus of infection. His H&H has decreased significantly since surgery, and, though bleeding was reported at the operative site 2 days ago, this drop in his H&H seems more than one would expect. Suggestion: 1. Will discuss further with vascular surgery 2. Further evaluation/management of his anemia per Medicine 3. Would obtain a urinalysis and urine culture 4. Chest x-ray 5. Continue to follow off antibiotics pending above
[2016-07-24 14:04] VITALS: BP 130/60
--- NOTE | 2016-07-24 15:33 | RADIOLOGY REPORT ---
EXAMINATION: XR CHEST CLINICAL INFORMATION: Fever COMPARISON: 07/16/2016 TECHNIQUE: 2 views of the chest were obtained. FINDINGS: Once again noted are hypoinflated lungs. No other significant abnormality is noted involving the heart, lungs, mediastinum, bony thorax, or soft tissues. There has been no interval change since the prior study. IMPRESSION: No acute intrathoracic disease.
[2016-07-24 22:28] VITALS: BP 122/74
[2016-07-25 06:30] VITALS: BP 116/68
[2016-07-25 08:21] LABS: ABSOLUTE BASOPHIL COUNT 0 /CUMM (0.0-0.2); ABSOLUTE EOSINOPHIL COUNT 0.2 /CUMM (0.0-0.7); ABSOLUTE GRANULOCYTE CT 14.9 /CUMM (1.4-6.5); ABSOLUTE LYMPH COUNT 1.9 /CUMM (1.2-3.4); ABSOLUTE MONOCYTE COUNT 1.9 /CUMM (0.10-0.60); BASOPHIL % 0.1 % (0.0-2.0); EOSINOPHIL % 1.1 % (0-5); GRANULOCYTE % 79.1 % (42.2-75.2); HEMATOCRIT 23.9 % (42-52); MEAN CORPUSCULAR HGB 29.6 PG (27.0-31.0); MEAN CORPUSCULAR VOLUME 87.3 FL (80.0-94.0); MEAN PLATELET VOLUME 7.8 FL (7.4-10.4); PLATELET COUNT 378 /CUMM (130-400); RBC DISTRIBUTION WIDTH 15.3 % (11.5-14.5); RED BLOOD CELL CT 2.73 /CUMM (4.70-6.10); WHITE BLOOD CELL COUNT 18.9 /CUMM (4.8-10.8)
--- NOTE | 2016-07-25 08:43 | PN- Housestaff ---
MIKE PERKINS,QAMAR 07/25/16 0843: Subjective Follow-up For: Leukocytosis, low grade fever s/p BKA Subjective: I saw and examined the patient today morning He is doing well, reports pain is well controlled with percocet. A little frustated about the white count. Otherwise no overnight events. Review of Systems Constitutional: Reports: see HPI. Comments: ROS negative except the above. Objective Last 24 Hrs of Vital Signs/I&O Vital Signs Date Time Temp Pulse Resp B/P B/P Pulse O2 O2 Flow FiO2 Mean Ox Delivery Rate 07/25 0630 99.0 90 20 116/68 98 Room Air 07/24 2228 99.7 102 22 122/74 97 Room Air 07/24 1404 99.5 95 20 130/60 96 Room Air 07/24 0906 99 130/72 07/24 0906 99 130/72 Intake & Output 07/25 1600 07/25 0800 07/25 0000 Intake Total 100 Output Total Balance 100 Intake, Oral 100 Physical Exam General Appearance: Alert, Oriented X3, Cooperative Skin: No Rashes, No Breakdown HEENT: Atraumatic, PERRLA, EOMI Neck: Supple Cardiovascular: Normal S1, Normal S2, No Murmurs Lungs: Clear to Auscultation, Normal Air Movement Abdomen: Normal Bowel Sounds, Soft, No Tenderness Neurological: Normal Tone, Sensation Intact, Cranial Nerves 3-12 NL Extremities: No Clubbing, No Cyanosis, BKA on left leg Current Medications: Current Medications Sig/Angela Start time Last Medication Dose Route Stop Time Status Admin Acetaminophen 650 MG Q6P PRN 07/20 1330 AC PO Amlodipine Besylate 10 MG DAILY 07/23 1000 AC 07/24 PO 0906 Atorvastatin Calcium 20 MG 1700 07/20 1700 AC 07/24 PO 1704 Benzonatate 100 MG TIDPRN PRN 07/20 1330 AC PO Diphenhydramine HCl 1 DANIELLE TID PRN 07/23 0815 AC 07/23 TOP 0907 Docusate Sodium 100 MG DAILY NEEDED PRN 07/20 1330 AC 07/21 PO 1016 Enoxaparin Sodium 40 MG DAILY 07/21 1000 AC 07/24 SC 0905 Guaifenesin 10 ML Q6P PRN 07/20 1330 AC PO Insulin Aspart 0 TIDAC/HS 07/20 1700 AC 07/25 SC 0821 Insulin Detemir 25 UNITS BID 07/22 2199 07/24 SC 2104 Ketorolac 30 MG ONCE PRN 07/20 2044 AC 07/20 Tromethamine IV 2054 Lisinopril 40 MG DAILY 07/21 1000 AC 07/24 PO 09 Melatonin 5 MG AT BEDTIME 07/20 2199 AC 07/24 PO 210 Morphine Sulfate 2 MG Q3P PRN 07/20 1345 AC 07/21 IV 0811 Oxycodone/ 2 TAB Q4P PRN 07/21 1400 AC 07/25 Acetaminophen PO 0811 Oxycodone/ 1 TAB Q4P PRN 07/20 1345 AC 07/20 Acetaminophen PO 1817 Senna/Docusate Sodium 2 TAB DAILY 07/22 0900 AC 07/24 PO 09 Last 24 Hrs of Lab/Ramin Results Last 24 Hrs of Labs/Mics: Laboratory Tests 07/25/16 0650: Anion Gap 8, Estimated GFR > 60, BUN/Creatinine Ratio 18.0, CBC w Diff NO MAN DIFF REQ, RBC 2.73 L, MCV 87.3, MCH 29.6, RDW 15.3 H, MPV 7.8, Gran % 79.1 H, Lymphocytes % 9.8 L, Monocytes % 9.9 H, Eosinophils % 1.1, Basophils % 0.1, Absolute Granulocytes 14.9 H, Absolute Lymphocytes 1.9, Absolute Monocytes 1.9 H, Absolute Eosinophils 0.2, Absolute Basophils 0, PUBS MCHC 34.0 07/24/16 1305: Urine Color YEL, Urine Clarity HAZY H, Urine pH 6.5, Ur Specific [place] 1.020, Urine Protein 100 H, Urine Ketones 15 H, Urine Nitrite NEG, Urine Bilirubin NEG, Urine Urobilinogen 1.0, Ur Leukocyte Esterase NEG, Ur Microscopic SEDIMENT EXAMINED, Urine RBC 1-3, Urine WBC 1-3 H, Ur Epithelial Cells MANY H, Urine Bacteria RARE H, Urine Mucus MANY H, Micro UA Comment , Urine Hemoglobin TRACE-INTACT H, Urine Glucose 250 H Microbiology 07/24 170 URINE ROUT: Urine Culture - RES Assessment/Plan Assessment: This is 45 year old male with past medical history of diabetes who was treated for right lower extremity osteomyelitis/infected right foot plantar ulcer requiring amputation of right great toe s/p 4 weeks course of IV Unasyn with placement of wound VAC. Problem list #1 Acute osteomyelitis right foot. on IV unasyn. s/p right-sided below-knee amputation on . #2 lightheadedness/dizziness. Most likely vasovagal. Ruled out ACS. #3 history of hypertension. On lisinopril and amlodipine. #4 history of diabetes mellitus. Holding metformin, Januvia. On Novolog SS and Levemir. #5 rash new onset, over forehead PLAN * Monitor vitals closely. * Following Off antibiotics for postoperative presumably reactive white count. * Podiatry, Vascular, ID on board - appreciate recs. * Watch out for low BP, as the patient was bleeding from right BKA stump yesterday. If so, send CBC stat, start IV fluid, and call surgery for possible immediate intervention. * Patient has had persistent leukocytosis and one episode of fever off 100.9, without any focus. Thus a urine protein exam, culture, chest x-ray has been sent to look for source. Blood cultures were sent yesterday, which needs follow -up. Surgical site doesn't seem to be infected according to surgeon. watched off antibiotics currently. * Continue lisinopril 40 mg daily for HTN * Dose of Levemir at 25 units BID, home dose. NovoLog insulin sliding scale at high dose. Nutrition consult was already placed and carried out in the admission , and the patient knows about healthy eathing habits. * Accu-Cheks before each meal and at bedtime * Adequate pain management * DVT prophylaxis: Subcutaneous Lovenox * Pain plan: Patient now has 1 Percocet tablet for moderate pain and 2 Percocet tablets for severe pain. For breakthrough pain despite this he can have IV morphine. Plan to discharge patient on oral analgesics. Patient seems to be tolerating it well. * Patient is full code, and has diabetic diet. Problem List: 1. Osteomyelitis 2. Wound infection 3. Diabetes mellitus Pain Ratin Pain Location: left lower leg - surgical site Pain Goal: Pain 4 or less Pain Plan: percocet q4 Tomorrow's Labs & Rationales: CBC to monitor H&H and white count Consulting Request: Consulting Specialty: Thoracic/Vascular Surgery Consulting Physician: Dr. Harrison Reason for Consult: Advanced osteomyelitis for BKA Rt PETERSON PERKINS,ASH 07/25/16 1226: Attending MD Review Statement Attending Statement Attending MD Statement: examined this patient, discuss w/resident/PA/SUPERVISOR METAL FABRICATING, agreed w/resident/PA/SUPERVISOR METAL FABRICATING, reviewed EMR data (avail), reviewed images Attending Assessment/Plan: Patient has some discomfort in the right leg but otherwise feels okay. Tired and anxious overall. Had a temp of 100.9 on 07/23 but no documented fever spike after that. White count is coming down to 18.9 today from 22. He is a 45-year- old with underlying diabetes, hypertension and is here with osteomyelitis status post a right BKA. Given that the UA is negative for white cells but does show glucosuria and ketones and given that his sodium is also creeping down at 132, I worry that he is getting dehydrated and having a fair amount of osmotic diureses. We'll give him 500 to 1000 mL of normal saline and follow the sodium closely. Anemia is stable and will need to follow. We are watching him off antibiotics with ID following closely. closely. Anemia is stable and will need to follow. We are watching him off antibiotics with ID following closely.
--- NOTE | 2016-07-25 10:19 | PN- Vascular Surgery ---
Subjective Subjective: POD 5 s/p R BKA Pt without complaints this morning No pain to RLE Objective Vital Signs and I&Os Vital Signs Date Time Temp Pulse Resp B/P B/P Pulse O2 O2 Flow FiO2 Mean Ox Delivery Rate 07/25 1010 70 120/68 07/25 1010 80 120/68 07/25 0630 99.0 90 20 116/68 98 Room Air 07/24 2228 99.7 102 22 122/74 97 Room Air 07/24 1404 99.5 95 20 130/60 96 Room Air Intake & Output 07/25 1600 07/25 0800 07/25 0000 07/24 1600 07/24 0800 07/24 0000 Intake Total 100 600 200 Output Total 400 600 Balance 100 200 -400 Intake, IV 0 Intake, Oral 100 600 200 Number 0 Bowel Movements Output, Urine 400 600 Physical Exam: RLE without edema Dressing clean and dry SARAH to RLE Assessment/Plan Assessment/Plan 45yo male with DM s/p R BKA Continue daily dressing changes per nursing Big Data Admin to be placed eventually - hold off for now per Dr Harrison Plan to follow up with vascular surgery one week after discharge dc planning per medical team
--- NOTE | 2016-07-25 14:29 | PN- Infect Dx ---
Subjective Subjective: Afebrile. He notes occasional pain in the right leg. He feels fatigued. Objective Last 24 Hrs of Vital Signs/I&O Vital Signs Date Time Temp Pulse Resp B/P B/P Pulse O2 O2 Flow FiO2 Mean Ox Delivery Rate 07/25 1010 70 120/68 07/25 1010 80 120/68 07/25 0630 99.0 90 20 116/68 98 Room Air 07/24 2228 99.7 102 22 122/74 97 Room Air Intake & Output 07/25 1600 07/25 0800 07/25 0000 Intake Total 100 Output Total 500 Balance -500 100 Intake, Oral 100 Output, Urine 500 Physical Exam Other Physical Findings: He appears comfortable, somewhat anxious, but in no acute distress Lungs are clear Heart regular rhythm with no murmur Extremities right leg dressing intact Results Last 24 Hours of Lab Results: Laboratory Tests 07/25 0650 Chemistry Sodium (137 - 145 mmol/L) 132 L Potassium (3.5 - 5.1 mmol/L) 4.1 Chloride (98 - 107 mmol/L) 96 L Carbon Dioxide (22 - 30 mmol/L) 28 Anion Gap (5 - 16) 8 BUN (9 - 20 mg/dL) 9 Creatinine (0.7 - 1.2 mg/dL) 0.5 L Estimated GFR (>60 ml/min) > 60 BUN/Creatinine Ratio (7 - 25 %) 18.0 Hematology CBC w Diff NO MAN DIFF REQ WBC (4.8 - 10.8 /CUMM) 18.9 H RBC (4.70 - 6.10 /CUMM) 2.73 L Hgb (14.0 - 18.0 G/DL) 8.1 L Hct (42 - 52 %) 23.9 L MCV (80.0 - 94.0 FL) 87.3 MCH (27.0 - 31.0 PG) 29.6 RDW (11.5 - 14.5 %) 15.3 H Plt Count (130 - 400 /CUMM) 378 MPV (7.4 - 10.4 FL) 7.8 Gran % (42.2 - 75.2 %) 79.1 H Lymphocytes % (20.5 - 51.1 %) 9.8 L Monocytes % (1.7 - 9.3 %) 9.9 H Eosinophils % (0 - 5 %) 1.1 Basophils % (0.0 - 2.0 %) 0.1 Absolute Granulocytes (1.4 - 6.5 /CUMM) 14.9 H Absolute Lymphocytes (1.2 - 3.4 /CUMM) 1.9 Absolute Monocytes (0.10 - 0.60 /CUMM) 1.9 H Absolute Eosinophils (0.0 - 0.7 /CUMM) 0.2 Absolute Basophils (0.0 - 0.2 /CUMM) 0 PUBS MCHC (33.0 - 37.0 G/DL) 34.0 Last 24 Hours of Ramin Results: Blood cultures 2 July 23 negative Urine culture July 24 negative Recent Imaging Studies: Chest x-ray July 24 negative Assessment/Plan Impression: Stable with no further fevers and with white blood cell count decreasing off antibiotics now 5 days status post right BKA, with right BKA stump reportedly clean and with no obvious focus of infection. His H&H is stable, though low, status post a significant blood loss, presumably perioperatively, and this likely explains his fatigue. Suggestion: 1. Follow-up recent cultures 2. Continue to follow off antibiotics pending above
[2016-07-25 15:35] VITALS: BP 128/88
--- NOTE | 2016-07-25 17:50 | NUR ---
PT IS A+OX4. C/O PAIN TO STUMP. PERCOCET GIVEN. DRESSING TO STUMP IS CDI. PT WAS EDUCATED ON THE IMPORTANCE OF HYDRATION. HE ACKNOWLEDGED UNDERSTANDING. AGREED TO PUT MORE EFFORT INTO DRINKING MORE. SAFETY MAINTAINED.
[2016-07-25 22:49] VITALS: BP 140/80
[2016-07-26 06:30] VITALS: BP 142/80
--- NOTE | 2016-07-26 06:30 | PN- Housestaff ---
JAQUIELIER 07/26/16 0629: Subjective Follow-up For: Foot osteomyelitis status post right BKA Leukocytosis Low-grade fever Anemia Complaints: no complaints Tele-Events Since Last Visit: No tele monitor Subjective: Reviewed the patient lying comfortable on the bed he reports no new complaints. He reports that the pain is tolerable and that he feels like the pain medication is helping and will not like to get any changes. Denies any fevers or chills overnight. Review of Systems Constitutional: Denies: chills, fever. Cardiovascular: Denies: chest pain, palpitations. Respiratory: Denies: cough, short of breath. Gastrointestinal: Denies: abdominal pain, nausea, vomiting. Genitourinary: Denies: no symptoms. Musculoskeletal: Reports: see HPI. Objective Last 24 Hrs of Vital Signs/I&O Vital Signs Date Time Temp Pulse Resp B/P B/P Pulse O2 O2 Flow FiO2 Mean Ox Delivery Rate 07/26 0630 98.9 87 20 142/80 96 Room Air 07/25 2249 99.8 103 20 140/80 95 Room Air 07/25 1535 99.2 90 20 128/88 96 07/25 1010 70 120/68 07/25 1010 80 120/68 Intake & Output 07/26 1600 07/26 0800 07/26 0000 Intake Total 650 1560 Output Total 250 Balance 400 1560 Intake, IV 450 600 Intake, Oral 200 960 Output, Urine 250 Physical Exam General Appearance: Alert, Oriented X3, Cooperative Skin: No Rashes Skin Temp/Moisture Exam: Warm/Dry Sepsis Skin Exam (color): Normal for Ethnicity HEENT: Atraumatic Neck: Supple Cardiovascular: Regular Rate, Normal S1, Normal S2 Lungs: Clear to Auscultation, Normal Air Movement Abdomen: Normal Bowel Sounds, Soft, No Tenderness, obese Neurological: Normal Speech, Normal Tone Extremities: No Clubbing, No Cyanosis, BKA right Current Medications: Current Medications Sig/Angela Start time Last Medication Dose Route Stop Time Status Admin Acetaminophen 650 MG Q6P PRN 07/20 1330 AC PO Amlodipine Besylate 10 MG DAILY 07/23 1000 AC /20 PO 1010 Atorvastatin Calcium 20 MG 1700 07/20 1700 AC 05/20 PO 1623 Benzonatate 100 MG TIDPRN PRN 07/20 1330 AC PO Diphenhydramine HCl 1 DANIELLE TID PRN 07/23 0815 AC 07/23 TOP 0907 Docusate Sodium 100 MG DAILY NEEDED PRN 07/20 1330 AC 07/21 PO 1016 Enoxaparin Sodium 40 MG DAILY 07/21 1000 AC 07/25 SC 1008 Guaifenesin 10 ML Q6P PRN 07/20 1330 AC PO Insulin Aspart 0 TIDAC/HS 07/20 1700 AC 07/26 SC 0818 Insulin Detemir 25 UNITS BID 07/22 2200 AC 07/25 SC 205 Ketorolac 30 MG ONCE PRN 07/20 2045 AC 07/20 Tromethamine IV 205 Lisinopril 40 MG DAILY 07/21 1000 AC 07/25 PO 1010 Melatonin 5 MG AT BEDTIME 07/20 220 AC 07/25 PO 205 Morphine Sulfate 2 MG Q3P PRN 07/20 1345 AC 07/21 IV 0811 Oxycodone/ 2 TAB Q4P PRN 07/21 1400 AC 07/26 Acetaminophen PO 0644 Oxycodone/ 1 TAB Q4P PRN 07/20 1345 AC 07/20 Acetaminophen PO 1817 Polyethylene Glycol 17 GM DAILY 07/26 1000 AC PO Senna/Docusate Sodium 2 TAB DAILY 07/22 0900 AC 07/25 PO 1008 Sodium Chloride 1,000 ML Q13H 07/25 1230 DC 07/25 IV 07/26 0129 1312 Last 24 Hrs of Lab/Ramin Results Last 24 Hrs of Labs/Mics: Laboratory Tests 07/26/16 0611: Anion Gap 11, Estimated GFR > 60, BUN/Creatinine Ratio 18.0, CBC w Diff NO MAN DIFF REQ, RBC 2.72 L, MCV 87.8, MCH 29.9, RDW 15.1 H, MPV 7.8, Gran % 78.2 H, Lymphocytes % 11.0 L, Monocytes % 8.7, Eosinophils % 1.9, Basophils % 0.2, Absolute Granulocytes 13.5 H, Absolute Lymphocytes 1.9, Absolute Monocytes 1.5 H, Absolute Eosinophils 0.3, Absolute Basophils 0, PUBS MCHC 34.0 Assessment/Plan Assessment: This is 45 year old male with past medical history of diabetes who was treated for right lower extremity osteomyelitis/infected right foot plantar ulcer requiring amputation of right great toe s/p 4 weeks course of IV Unasyn with placement of wound VAC. Following subsequent development of the osteomyelitis the patient had right BKA on July 20. Acute osteomyelitis right foot Patient was started on IV unasyn on presentation but currently off antibiotics after amputation. [employer] Operations Staff Officer, Dr. Dowd, vascular surgeon and infectious disease specialist, Laryr Cao MD are on board. Blood cultures so far negative, continue to follow for final results. The patient had a right BKA on July 20. Post procedure there was some bleeding from the surgical site which was maintained with further reinforcement of the dressing. Hypertension Patient has history of hypertension. He takes lisinopril and amlodipine at home which he continues to take during the course of this admission. Blood pressure has remained stable for the past 48 hours. Continue to take BP meds and monitor pressure Diabetes mellitus. Patient has history of diabetes mellitus. At home the patient takes metformin , Januvia and Levemir insulin 25 units. We are holding the oral antidiabetic medications and the patient is kept on Levemir and insulin sliding scale before meals. Initial sugar was in the higher side around 300s, with increase of Levemir to 25 sugar is more controlled for the past 24 hours 194, 194, 250, 250, 213, 215, 156 Acute blood loss anemia Patient presented with hemoglobin of 12.5, postprocedure hemoglobin dropped to 9.9 and continued dropping to lowest level of 8.0 on July 24. We will continue to monitor hemoglobin and target to maintain about 8.0. This morning H&H has remained stable 8.1/23.9 Leukocytosis Patient presented with leukocytosis of around 19,400, in the initial days there was slight decrease however starting from we started noting an upward increase of leukocytosis despite the osteomyelitic part of the bone been removed. Patient also demonstrated low-grade fever but further workup to find source of infection was not successful. We are monitoring the patient off antibiotics. Repeated blood culture on July 23 still negative, continue to follow. Problem List: 1. Diabetes mellitus 2. Foot infection 3. Hypertension 4. Osteomyelitis Pain Ratin Pain Location: [place] leg Pain Goal: Remain pain free Pain Plan: Continue with pain management pathway with Percocet and acetaminophen Tomorrow's Labs & Rationales: CBC to continue to trend her H&H DVT/Prophylaxis: pharmacological Consulting Request: Consulting Specialty: Thoracic/Vascular Surgery Consulting Physician: Dr. Harrison Reason for Consult: Advanced osteomyelitis for BKA Rt D'MA MD,ASH 07/26/16 0944: Attending MD Review Statement Attending Statement Attending MD Statement: examined this patient, discuss w/resident/PA/JUNIOR ORACLE DBA, agreed w/resident/PA/JUNIOR ORACLE DBA, reviewed EMR data (avail), reviewed images Attending Assessment/Plan: 45-year-old male with hypertension, diabetes here with acute osteomyelitis status post right BKA. White count is coming down slowly from 22-18-17 today. Had significant blood loss anemia requiring multiple transfusions and crit is holding now at 8/23. Sugars appear slightly better and will need to watch that. Following off antibiotics.
[2016-07-26 08:25] LABS: ABSOLUTE BASOPHIL COUNT 0 /CUMM (0.0-0.2); ABSOLUTE EOSINOPHIL COUNT 0.3 /CUMM (0.0-0.7); ABSOLUTE GRANULOCYTE CT 13.5 /CUMM (1.4-6.5); ABSOLUTE LYMPH COUNT 1.9 /CUMM (1.2-3.4); ABSOLUTE MONOCYTE COUNT 1.5 /CUMM (0.10-0.60); BASOPHIL % 0.2 % (0.0-2.0); EOSINOPHIL % 1.9 % (0-5); GRANULOCYTE % 78.2 % (42.2-75.2); HEMATOCRIT 23.9 % (42-52); MEAN CORPUSCULAR HGB 29.9 PG (27.0-31.0); MEAN CORPUSCULAR VOLUME 87.8 FL (80.0-94.0); MEAN PLATELET VOLUME 7.8 FL (7.4-10.4); PLATELET COUNT 417 /CUMM (130-400); RBC DISTRIBUTION WIDTH 15.1 % (11.5-14.5); RED BLOOD CELL CT 2.72 /CUMM (4.70-6.10); WHITE BLOOD CELL COUNT 17.3 /CUMM (4.8-10.8)
--- NOTE | 2016-07-26 11:45 | NUR ---
1130- PT IV DUE TO BE CHANGED 07/26 AND WAS EXTENDED X 24 HRS. DIFFICULT STICK AND UNABLE TO ESTABLISH NEW LINE AFTER 2 RNS HAVE MADE ATTEMPTS. PT NOT TAKING IV PAIN MEDICATION FOR SEVERAL DAYS. NO SCHEDULED IV MEDICATIONS. PER STACEY CHUNG FOR PT TO NOT HAVE IV ACCESS.
--- NOTE | 2016-07-26 13:00 | PN- Vascular Surgery ---
Subjective Subjective: Pt has no major complaints. He admits to some soreness, but reports overall improvement in pain vs. immediately postop. Objective Vital Signs and I&Os Vital Signs Date Time Temp Pulse Resp B/P B/P Pulse O2 O2 Flow FiO2 Mean Ox Delivery Rate 07/26 0958 86 132/78 07/26 0958 86 132/78 07/26 0630 98.9 87 20 142/80 96 Room Air 07/25 2249 99.8 103 20 140/80 95 Room Air 07/25 1535 99.2 90 20 128/88 96 Intake & Output 07/26 1600 07/26 0800 07/26 0000 07/25 1600 07/25 0800 07/25 0000 Intake Total 650 1560 75 100 Output Total 250 1800 Balance 400 1560 -1725 100 Intake, IV 450 600 75 Intake, Oral 200 960 100 Output, Urine 250 1800 Physical Exam: Gen: pt is awake and alert. NAD. Ext: The right BKA stump incision is c/d/i with alternating tamiko and sutures in place. There is no significant drainage, erythema, or ecchymosis. Skin is warm and viable, and there are no signs of ischemia. Xeroform, kerlix, and jerrell wrap was reapplied and the leg was elevated. Assessment/Plan Assessment/Plan 45yo male with DM s/p R BKA -Continue daily dressing changes per nursing. -Firmware Software Verification Engineer to be placed eventually - hold off for now per Dr Harrison -Plan to follow up with vascular surgery one week after discharge -blood sugar management to promote wound healing. -dc planning per medical team.
--- NOTE | 2016-07-26 13:21 | PN- Vascular Surgery ---
Surgical Brief Attending Note Brief Attending Note: Pt. is now POD #6 s/p R. BKA for infection of diabetic wounds. Otherwise stable. Pain relatively controlled. PE: AF/VSS Ext: Dressing dry, +motor function A/P 1.) Cont. elevation/compression 2.) Pain control 3.) Stable from wound/vascular stndpoint for discharge
[2016-07-26 15:08] VITALS: BP 138/86
--- NOTE | 2016-07-26 17:06 | NUR ---
17:00- PT COMPLAINING OF CHILLS AND FEELING FEVERISH. ORAL TEMP 100.8. PT BEING FOLLOWED OFF ANTIBIOTICS. CHIEF EXECUTIVE OFFICER ONEAL KEY AND SURG PETRONA FLOWERS NOTIFIED OF ABOVE. PT ALSO TAKING PERCOCET PRN Q 4 HRS. NO NEW ORDERS AT THIS TIME.
--- NOTE | 2016-07-26 17:09 | NUR ---
1700- PT WAS OFFERED OOB TO CHAIR X 2 TODAY. PT REFUSED OOB. PT STATES HE DOES NOT FEEL WELL ENOUGH TO GET OOB. EDUCATED PT ON IMPORTANCE OF GETTING OOB AND PT STATED "NO".
[2016-07-26 22:40] VITALS: BP 134/76
[2016-07-27 06:30] VITALS: BP 146/78
--- NOTE | 2016-07-27 07:03 | PN- Housestaff ---
ELLIOTT PERKINS,DOMITILA 07/27/16 0703: Subjective Follow-up For: Foot osteomyelitis status post right BKA; Leukocytosis 17.3 yesterday; Low-grade fever 100.8; Anemia. Complaints: no complaints Subjective: I followed up and examined the patient today. He is resting comfortably in bed, not in distress, does not have any complaints. He has been using incentive spirometry since yesterday. He spiked a temperature of 100.8 last night at 1702 , of note, while taking Percocet. Nursing staff reports that he has not been cooperative with physical therapy as much as he should. I spoke with him, about the need to be more active, continue incentive spirometry, work with physical therapist as much as possible. No shortness of breath, chest pain, palpitations, and the pain scale this morning is 2/10. Review of Systems Constitutional: Reports: fever. Objective Last 24 Hrs of Vital Signs/I&O Vital Signs Date Time Temp Pulse Resp B/P B/P Pulse O2 O2 Flow FiO2 Mean Ox Delivery Rate 07/27 0630 99.9 97 20 146/78 95 Room Air 07/26 2240 98.7 93 20 134/76 94 07/26 1702 100.8 07/26 1508 99.3 92 20 138/86 96 07/26 0958 86 132/78 07/26 0958 86 132/78 Intake & Output 07/27 0800 07/27 0000 07/26 1600 Intake Total 240 480 720 Output Total 159 957 2207 Balance -410 80 -680 Intake, Oral 240 480 720 Output, Urine 973 249 6132 Physical Exam General Appearance: Alert, Oriented X3, Cooperative, No Acute Distress, obese Other Physical Findings: Skin: No Rashes Skin Temp/Moisture Exam: Warm/Dry Sepsis Skin Exam (color): Normal for Ethnicity HEENT: Atraumatic Neck: Supple Cardiovascular: Regular Rate, Normal S1, Normal S2 Lungs: Clear to Auscultation, Normal Air Movement Abdomen: Normal Bowel Sounds, Soft, No Tenderness, obese Neurological: Normal Speech, Normal Tone Extremities: No Clubbing, No Cyanosis, BKA right, dressing is not soaked Current Medications: Current Medications Sig/Angela Start time Last Medication Dose Route Stop Time Status Admin Acetaminophen 650 MG Q6P PRN 07/20 1330 AC PO Amlodipine Besylate 10 MG DAILY 07/23 1000 AC 07/26 PO 0958 Atorvastatin Calcium 20 MG 1700 07/20 1700 AC 07/26 PO 1658 Benzonatate 100 MG TIDPRN PRN 07/20 1330 AC PO Diphenhydramine HCl 1 DANIELLE TID PRN 07/23 0815 AC 07/23 TOP 0907 Docusate Sodium 100 MG DAILY NEEDED PRN 07/20 1330 AC 07/21 PO 1016 Enoxaparin Sodium 40 MG DAILY 07/21 1000 AC 07/26 SC 0957 Guaifenesin 10 ML Q6P PRN 07/20 1330 AC PO Insulin Aspart 0 TIDAC/HS 07/20 1700 AC 07/26 SC 1837 Insulin Detemir 25 UNITS BID 07/22 2200 AC 07/26 SC 205 Ketorolac 30 MG ONCE PRN 07/20 2045 AC 07/20 Tromethamine IV 2055 Lisinopril 40 MG DAILY 07/21 1000 AC 07/26 PO 0958 Melatonin 5 MG AT BEDTIME 07/20 2200 AC 07/26 PO 2057 Morphine Sulfate 2 MG Q3P PRN 07/20 1345 AC 07/21 IV 0811 Oxycodone/ 2 TAB Q4P PRN 07/21 1400 AC 07/27 Acetaminophen PO 0600 Oxycodone/ 1 TAB Q4P PRN 07/20 1345 AC 07/20 Acetaminophen PO 1817 Polyethylene Glycol 17 GM DAILY 07/26 1000 AC 07/26 PO 0957 Senna/Docusate Sodium 2 TAB DAILY 07/22 0900 AC 07/26 PO 0958 Last 24 Hrs of Lab/Ramin Results Last 24 Hrs of Labs/Mics: Laboratory Tests 07/27/16 0710: Sodium Pending, Potassium Pending, Chloride Pending, Carbon Dioxide Pending, Anion Gap Pending, BUN Pending, Creatinine Pending, BUN/Creatinine Ratio Pending , CBC w Diff Pending, WBC Pending, RBC Pending, Hgb Pending, Hct Pending, MCV Pending, MCH Pending, RDW Pending, Plt Count Pending, MPV Pending, PUBS MCHC Pending Microbiology 07/26 1934 BLOOD: Blood Culture - RECD 07/26 1924 BLOOD: Blood Culture - RECD Assessment/Plan Assessment: This is 45 year old male with past medical history of diabetes who was treated for right lower extremity osteomyelitis/infected right foot plantar ulcer requiring amputation of right great toe s/p 4 weeks course of IV Unasyn with placement of wound VAC. Following subsequent development of the osteomyelitis the patient had right BKA on July 20. Acute osteomyelitis right foot, s/p Right BKA on 07/20/16 Patient was started on IV unasyn on presentation but currently off antibiotics after amputation. Pecan Mallow Dipper, Dr. Dowd, vascular surgeon and infectious disease specialist, Larry Cao MD are on board. Initial blood cultures were negative, but was later sent again when he spiked a fever, which is pending final results. The patient had a right BKA on July 20. Post procedure there was some bleeding from the surgical site which was maintained with further reinforcement of the dressing. Hypertension Patient has history of hypertension. He takes lisinopril and amlodipine at home which he continues to take during the course of this admission. Blood pressure has remained stable for the past 48 hours. Continue to take BP meds and monitor pressure. Diabetes mellitus. Patient has history of diabetes mellitus. At home the patient takes metformin , Januvia and Levemir insulin 25 units. We are holding the oral antidiabetic medications and the patient is kept on Levemir and insulin sliding scale before meals. Initial sugar was in the higher side around 300s, with increase of Levemir to 25 sugar and changed to high dose insulin sliding scale as well, thus is more controlled for the past 24 hours 190, 209, 178 Acute blood loss anemia Patient presented with hemoglobin of 12.5, postprocedure hemoglobin dropped to 9.9 and continued dropping to lowest level of 8.0 on July 24. We will continue to monitor hemoglobin and target to maintain about 8.0. Type and screen order in place and consent already obtained if necessary for BT. This morning H&H has remained stable 8.1/24.6. Will watch daily. Leukocytosis Patient presented with leukocytosis of around 19,400, in the initial days there was slight decrease however starting from we started noting an upward increase of leukocytosis despite the osteomyelitic part of the bone been removed. Patient also demonstrated low-grade fever but further workup to find source of infection was not successful. We are monitoring the patient off antibiotics. Repeated blood culture on July 23 still negative, continue to follow. ID consult appreciated. Per ID, sending patient to [facility] of Rt BKA stump to search for possible septic hematoma given his leukocytosis and blood loss anemia. -Diabetic diet -DVT prophylaxis: Subcutaneous Lovenox -Pain plan: Patient now has 1 Percocet tablet for moderate pain and 2 Percocet tablets for severe pain. For breakthrough pain despite this he can have IV morphine. Plan to discharge patient on oral analgesics tomorrow. Patient seems to be tolerating it well. -Patient is full code Problem List: 1. Osteomyelitis 2. S/P BKA (below knee amputation) unilateral 3. Diabetes mellitus 4. Hypertension 5. Obesity Pain Ratin Pain Location: right leg stump Pain Goal: Pain 4 or less Pain Plan: PO meds are helping Tomorrow's Labs & Rationales: CBC Consulting Request: Consulting Specialty: Thoracic/Vascular Surgery Consulting Physician: Dr. Harrison Reason for Consult: Advanced osteomyelitis for BKA Rt PETERSON PERKINS,ASH 07/27/16 1409: Attending MD Review Statement Attending Statement Attending MD Statement: examined this patient, discuss w/resident/PA/CARE TRANSPORT NURSE, agreed w/resident/PA/CARE TRANSPORT NURSE, reviewed EMR data (avail), discussed with nursing, reviewed images Attending Assessment/Plan: Patient appears very depressed and low. Overall I think the right BKA is overwhelming to him. He did not work with physical therapy today. The psych CONSULTING ANALYST is going to see him. Of note he also had a low-grade temp of 100.8 last night and his white count is persisting in the 17,000 range. He is off antibiotics after his BKA on the and will discuss with ID possible etiologies of persistent leukocytosis and now low-grade temperatures. All cultures postoperatively have been negative so far.
[2016-07-27 08:19] LABS: ABSOLUTE BASOPHIL COUNT 0 /CUMM (0.0-0.2); ABSOLUTE EOSINOPHIL COUNT 0.3 /CUMM (0.0-0.7); ABSOLUTE GRANULOCYTE CT 14.3 /CUMM (1.4-6.5); ABSOLUTE LYMPH COUNT 1.3 /CUMM (1.2-3.4); ABSOLUTE MONOCYTE COUNT 1.6 /CUMM (0.10-0.60); BASOPHIL % 0.3 % (0.0-2.0); EOSINOPHIL % 1.9 % (0-5); GRANULOCYTE % 81.3 % (42.2-75.2); HEMATOCRIT 24.6 % (42-52); MEAN CORPUSCULAR HGB 28.8 PG (27.0-31.0); MEAN CORPUSCULAR VOLUME 87.3 FL (80.0-94.0); MEAN PLATELET VOLUME 7.4 FL (7.4-10.4); PLATELET COUNT 504 /CUMM (130-400); RBC DISTRIBUTION WIDTH 15.3 % (11.5-14.5); RED BLOOD CELL CT 2.82 /CUMM (4.70-6.10); WHITE BLOOD CELL COUNT 17.6 /CUMM (4.8-10.8)
--- NOTE | 2016-07-27 13:36 | PN- Psychiatry ---
Assessment/Plan Impression: Identifying Info: 45-year-old single male presents to [facility] emergency department 07/13/2016 post near syncopal episode at [facility] care center. Subsequently had a right BKA due to osteomyelitis. Now on medicine. SUBJECTIVE Patient states "I have some good days and some bad days... this is one of the worth ones." Describes great frustration with "being pushed to get out of bed. " He feels that there is poor communication between him and his treatment team. He endorses low frustration tolerance. He states he lacks confidence and feels guilty that so many people care about him. On the previous admission the patient had agreed to try a trial of Lexapro but it was never initiated. Reports he is ready to start today. Brief ROS Gait: Impaired Sleep: Impaired Appetite: Impaired OBJECTIVE Mental Status Exam Presentation/Appearance: Cooperative with evaluation. Hospital garb. Sitting in chair. Orientation: Grossly oriented Sensorium: Awake and alert Eye contact: Appropriate Affect: Blunted and tearful at times, congruent Mood: Dysphoric Depression: Endorses Anxiety: Endorses Thought Content: - Denies SI/HI, AH/VH, PI. States and also believes they will not kill themselves. - Denies Hopeless/Helpless Thoughts Thought Process: Linear Associations: Appropriate Speech: Normal tone and rate Judgment: Fair Insight: Fair Cognition: Memory: Grossly intact Attention/Concentration: grossly intact Fund of Knowledge: Adequate Abstractions: Did not assess MMSE: Did not assess Per nursing report the patient has been experiencing low motivation. He has not been getting out of bed. He has been depressed and anxious. He experienced 1 episode today where he refused to get out of the commode. Per physical therapy report the patient is reluctant to participate. He is high anxiety and anything outside his self designed rigid plans for the day results in emotional distress. ASSESSMENT 45-year-old single male presents with sadness and anxiety related to chronic medical problems. It would help he is experiencing an increase in depression and anxiety status post operation and is agreeable and would benefit from psychotropic medication at this time. Differential diagnosis Rule out adjustment disorder Rule out depressive disorder due to another medical condition Rule out dependent traits Suggestion: 1. Please start Gabapentin 100 mg twice a day when necessary anxiety. 2. Please start Lexapro 5 mg daily. 3. Recommend continued support from pastoral care as patient received great benefit from this. Please order pastoral consult. Thank you for including psychiatry in this case will continue to follow. Subjective Subjective: as above Objective Last 24 Hrs of Vital Signs/I&O Current Medications Sig/Angela Start time Last Medication Dose Route Stop Time Status Admin Acetaminophen 650 MG Q6P PRN 07/20 1330 AC PO Amlodipine Besylate 10 MG DAILY 07/23 1000 AC 07/27 PO 0929 Atorvastatin Calcium 20 MG 1700 07/20 1700 AC 07/26 PO 1658 Benzonatate 100 MG TIDPRN PRN 07/20 1330 AC PO Diphenhydramine HCl 1 DANIELLE TID PRN 07/23 0815 AC 07/23 TOP 0907 Docusate Sodium 100 MG DAILY NEEDED PRN 07/20 1330 AC 07/21 PO 1016 Enoxaparin Sodium 40 MG DAILY 07/21 1000 AC 07/27 SC 0928 Gabapentin 100 MG Q12P PRN 07/27 1315 AC PO Guaifenesin 10 ML Q6P PRN 07/20 1330 AC PO Insulin Aspart 0 TIDAC/HS 07/20 1700 AC 07/27 SC 1234 Insulin Detemir 25 UNITS BID 07/22 2200 AC 07/27 SC 0929 Ketorolac 30 MG ONCE PRN 07/20 2045 AC 07/20 Tromethamine IV 2055 Lisinopril 40 MG DAILY 07/21 1000 AC 07/27 PO 0930 Melatonin 5 MG AT BEDTIME 07/20 2200 AC 07/26 PO 2057 Morphine Sulfate 2 MG Q3P PRN 07/20 1345 AC 07/21 IV 0811 Oxycodone/ 2 TAB Q4P PRN 07/21 1400 AC 07/27 Acetaminophen PO 1009 Oxycodone/ 1 TAB Q4P PRN 07/20 1345 AC 07/20 Acetaminophen PO 1817 Polyethylene Glycol 17 GM DAILY 07/26 1000 AC 07/27 PO 0929 Senna/Docusate Sodium 2 TAB DAILY 07/22 0900 AC 07/27 PO 0930 Laboratory Tests 07/27/16 0710: Anion Gap 12, Estimated GFR > 60, BUN/Creatinine Ratio 14.0, CBC w Diff NO MAN DIFF REQ, RBC 2.82 L, MCV 87.3, MCH 28.8, RDW 15.3 H, MPV 7.4, Gran % 81.3 H, Lymphocytes % 7.4 L, Monocytes % 9.1, Eosinophils % 1.9, Basophils % 0.3, Absolute Granulocytes 14.3 H, Absolute Lymphocytes 1.3, Absolute Monocytes 1.6 H, Absolute Eosinophils 0.3, Absolute Basophils 0, PUBS MCHC 33.0 Vital Signs Date Time Temp Pulse Resp B/P B/P Pulse O2 O2 Flow FiO2 Mean Ox Delivery Rate 07/27 1228 Room Air Room Air 07/27 0930 95 142/82 07/27 0929 95 142/82 07/27 0630 99.9 97 20 146/78 95 Room Air 07/26 2240 98.7 93 20 134/76 94 07/26 1702 100.8 07/26 1508 99.3 92 20 138/86 96 Intake & Output 07/27 1600 07/27 0800 07/27 0000 Intake Total 240 480 Output Total 200 650 400 Balance -200 -410 80 Intake, Oral 240 480 Output, Urine 200 650 400
[2016-07-27 14:06] VITALS: BP 100/60
--- NOTE | 2016-07-27 15:00 | PN- Infect Dx ---
Subjective Subjective: MAXIMUM TEMPERATURE 100.8. He feels fatigued and continues to complain of pain in the right foot, which is controlled with Percocet. Objective Last 24 Hrs of Vital Signs/I&O Vital Signs Date Time Temp Pulse Resp B/P B/P Pulse O2 O2 Flow FiO2 Mean Ox Delivery Rate 07/27 1406 98.7 99 20 100/60 98 Room Air 07/27 1228 Room Air Room Air 07/27 0930 95 142/82 07/27 0929 95 142/82 07/27 0630 99.9 97 20 146/78 95 Room Air 07/26 2240 98.7 93 20 134/76 94 07/26 1702 100.8 07/26 1508 99.3 92 20 138/86 96 Intake & Output 07/27 1600 07/27 0800 07/27 0000 Intake Total 240 480 Output Total 200 650 400 Balance -200 -410 80 Intake, Oral 240 480 Output, Urine 200 650 400 Physical Exam Other Physical Findings: He appears comfortable in no acute distress Lungs are clear Heart regular rhythm with no murmur Abdomen soft, nontender with positive bowel sounds Extremities right BKA stump incision clean, with no erythema, tender to palpation, with serosanguineous drainage on the dressing Results Last 24 Hours of Lab Results: Laboratory Tests 07/27 0710 Chemistry Sodium (137 - 145 mmol/L) 130 L Potassium (3.5 - 5.1 mmol/L) 4.4 Chloride (98 - 107 mmol/L) 94 L Carbon Dioxide (22 - 30 mmol/L) 24 Anion Gap (5 - 16) 12 BUN (9 - 20 mg/dL) 7 L Creatinine (0.7 - 1.2 mg/dL) 0.5 L Estimated GFR (>60 ml/min) > 60 BUN/Creatinine Ratio (7 - 25 %) 14.0 Hematology CBC w Diff NO MAN DIFF REQ WBC (4.8 - 10.8 /CUMM) 17.6 H RBC (4.70 - 6.10 /CUMM) 2.82 L Hgb (14.0 - 18.0 G/DL) 8.1 L Hct (42 - 52 %) 24.6 L MCV (80.0 - 94.0 FL) 87.3 MCH (27.0 - 31.0 PG) 28.8 RDW (11.5 - 14.5 %) 15.3 H Plt Count (130 - 400 /CUMM) 504 H MPV (7.4 - 10.4 FL) 7.4 Gran % (42.2 - 75.2 %) 81.3 H Lymphocytes % (20.5 - 51.1 %) 7.4 L Monocytes % (1.7 - 9.3 %) 9.1 Eosinophils % (0 - 5 %) 1.9 Basophils % (0.0 - 2.0 %) 0.3 Absolute Granulocytes (1.4 - 6.5 /CUMM) 14.3 H Absolute Lymphocytes (1.2 - 3.4 /CUMM) 1.3 Absolute Monocytes (0.10 - 0.60 /CUMM) 1.6 H Absolute Eosinophils (0.0 - 0.7 /CUMM) 0.3 Absolute Basophils (0.0 - 0.2 /CUMM) 0 PUBS MCHC (33.0 - 37.0 G/DL) 33.0 Last 24 Hours of Ramin Results: Blood cultures July 26 negative Urine culture July 24 negative Assessment/Plan Impression: Recurrent low-grade fevers with persistent leukocytosis of unclear source now 1 week status post right BKA, with recent blood and urine cultures and chest x-ray negative. His right BKA stump appears clean, with no erythema or purulent drainage; however this would seem to be the most likely source of his persistent fever and leukocytosis. He did drop his H&H significantly postop and the possibility of a hematoma, that could be infected, must be considered. Suggestion: 1. Ultrasound of the right BKA stump 2. Continue to follow off antibiotics pending above
--- NOTE | 2016-07-27 16:57 | ULTRASOUND REPORT ---
EXAMINATION: US SUPERFICIAL IMAGING EXTREMITY, RIGHT CLINICAL INFORMATION: 45-year-old male status post [id number] amputation of the right knee done on 07/20/2016, presents with persistent leukocytosis. Suspected wound infection. COMPARISON: Right femur done on 07/20/2016. TECHNIQUE: Targeted ultrasound of the site of the right-sided [id number] amputation was performed superior to the site of incision corresponding to the site of redness and inflammation. FINDINGS: Nonspecific soft tissue thickening is noted at and around, superior to the site of the right-sided [id number] amputation. No discrete focal fluid collection suggestive of abscess formation is visualized. IMPRESSION: Nonspecific soft tissue thickening likely represents postsurgical changes or cellulitis. No sonographic evidence of focal fluid collection suggestive of abscess formation is noted within and around the surgical bed.
[2016-07-27 22:29] VITALS: BP 154/80
[2016-07-28 06:55] VITALS: BP 130/80
--- NOTE | 2016-07-28 07:13 | PN- Housestaff ---
ELLIOTT PEKRINS,DOMITILA 07/28/16 0712: Subjective Follow-up For: Foot osteomyelitis status post right BKA; Leukocytosis 17.6 yesterday; Anemia. Complaints: no complaints Subjective: I followed up and examined the patient today. He is resting comfortably in his bed, does not have any complaints. Vitals have been stable, and has tried little for physical therapy compared to how much she has to. He says the pain management has been good. No fever/chills/chest pain/shortness of breath. Review of Systems Constitutional: Reports: no symptoms. Objective Last 24 Hrs of Vital Signs/I&O Vital Signs Date Time Temp Pulse Resp B/P B/P Pulse O2 O2 Flow FiO2 Mean Ox Delivery Rate 07/28 1347 98.0 96 20 130/80 99 Room Air 07/28 1030 126/80 07/28 0655 99.0 92 20 130/80 93 Room Air 07/27 2229 99.9 95 20 154/80 94 Room Air Intake & Output 07/28 1600 07/28 0800 07/28 0000 Intake Total 600 320 360 Output Total 150 300 Balance 600 170 60 Intake, Oral 600 320 360 Number 1 Bowel Movements Output, Urine 150 300 Physical Exam General Appearance: Alert, Oriented X3, Cooperative, No Acute Distress, obese Other Physical Findings: Skin: No Rashes Skin Temp/Moisture Exam: Warm/Dry Sepsis Skin Exam (color): Normal for Ethnicity HEENT: Atraumatic Neck: Supple Cardiovascular: Regular Rate, Normal S1, Normal S2 Lungs: Clear to Auscultation, Normal Air Movement, bases have minimal crackles, bot in distress Abdomen: Normal Bowel Sounds, Soft, No Tenderness, obese Neurological: Normal Speech, Normal Tone Extremities: No Clubbing, No Cyanosis, BKA right, dressing is not soaked Current Medications: Current Medications Sig/Angela Start time Last Medication Dose Route Stop Time Status Admin Acetaminophen 650 MG Q6P PRN 07/20 1330 AC PO Amlodipine Besylate 10 MG DAILY 07/23 1000 AC 07/28 PO 1258 Atorvastatin Calcium 20 MG 1700 07/20 1700 AC 07/28 PO 1825 Benzonatate 100 MG TIDPRN PRN 07/20 1330 AC PO Diphenhydramine HCl 1 DANIELLE TID PRN 07/23 0815 AC 07/23 TOP 0907 Docusate Sodium 100 MG DAILY NEEDED PRN 07/20 1330 AC 07/21 PO 1016 Enoxaparin Sodium 40 MG DAILY 07/21 1000 AC 07/28 SC 1258 Escitalopram Oxalate 5 MG DAILY 07/27 1345 AC 07/28 PO 1258 Gabapentin 100 MG Q12P PRN 07/27 1315 AC PO Guaifenesin 10 ML Q6P PRN 07/20 1330 AC PO Insulin Aspart 0 TIDAC/HS 07/20 1700 AC 07/28 SC 1826 Insulin Detemir 25 UNITS BID 07/22 220 AC 07/28 SC 1258 Ketorolac 30 MG ONCE PRN 07/20 2045 AC 07/20 Tromethamine IV 2055 Lisinopril 40 MG DAILY 07/21 1000 AC 07/28 PO 1258 Melatonin 5 MG AT BEDTIME 07/20 220 AC 07/27 PO 2118 Morphine Sulfate 2 MG Q3P PRN 07/20 1345 AC 07/21 IV 0811 Oxycodone HCl 5 MG Q6P PRN 07/28 1700 AC PO Oxycodone HCl 10 MG Q6-PRN PRN 07/28 1700 AC 07/28 PO 1825 Oxycodone/ 2 TAB Q4P PRN 07/21 1400 DC 07/28 Acetaminophen PO 1257 Oxycodone/ 1 TAB Q4P PRN 07/20 1345 DC 07/20 Acetaminophen PO 1817 Polyethylene Glycol 17 GM DAILY 07/26 1000 AC 07/27 PO 0929 Senna/Docusate Sodium 2 TAB DAILY 07/22 0900 AC 07/27 PO 0930 Simethicone 80 MG Q8P PRN 07/28 1445 AC PO Simethicone 80 MG ONCE ONE 07/28 1315 DC 07/28 PO 07/28 1316 1336 Tamsulosin HCl 0.4 MG DAILY 07/28 1708 AC PO Last 24 Hrs of Lab/Ramin Results Last 24 Hrs of Labs/Mics: Laboratory Tests 07/28/16 0620: CBC w Diff NO MAN DIFF REQ, RBC 2.76 L, MCV 85.9, MCH 29.0, RDW 15.3 H, MPV 7.5, Gran % 82.5 H, Lymphocytes % 7.3 L, Monocytes % 8.9, Eosinophils % 1.2, Basophils % 0.1, Absolute Granulocytes 16.5 H, Absolute Lymphocytes 1.5, Absolute Monocytes 1.8 H, Absolute Eosinophils 0.2, Absolute Basophils 0, PUBS MCHC 33.7 Assessment/Plan Assessment: This is 45 year old male with past medical history of diabetes who was treated for right lower extremity osteomyelitis/infected right foot plantar ulcer requiring amputation of right great toe s/p 4 weeks course of IV Unasyn with placement of wound VAC. Following subsequent development of the osteomyelitis the patient had right BKA on July 20. Acute osteomyelitis right foot, s/p Right BKA on 07/20/16 Patient was started on IV unasyn on presentation but currently off antibiotics after amputation. Cranberry Sorter, Dr. Dowd, vascular surgeon and infectious disease specialist, Larry Cao MD are on board. Initial blood cultures were negative, but was later sent again when he spiked a fever, which is pending final results. The patient had a right BKA on July 20. Post procedure there was some bleeding from the surgical site which was maintained with further reinforcement of the dressing. Hypertension Patient has history of hypertension. He takes lisinopril and amlodipine at home which he continues to take during the course of this admission. Blood pressure has remained stable for the past 48 hours. Continue to take BP meds and monitor pressure. Diabetes mellitus. Patient has history of diabetes mellitus. At home the patient takes metformin , Januvia and Levemir insulin 25 units. We are holding the oral antidiabetic medications and the patient is kept on Levemir and insulin sliding scale before meals. Initial sugar was in the higher side around 300s, with increase of Levemir to 25 sugar and changed to high dose insulin sliding scale as well, thus is more controlled for the past 24 hours. Acute blood loss anemia Patient presented with hemoglobin of 12.5, postprocedure hemoglobin dropped to 9.9 and continued dropping to lowest level of 8.0 on July 24. We will continue to monitor hemoglobin and target to maintain above 8.0. Type and screen order in place and consent already obtained if necessary for BT. This morning H&H has remained stable 8.0/23.7. Will watch daily. Leukocytosis Patient presented with leukocytosis of around 19,400, in the initial days there was slight decrease however starting from we started noting an upward increase of leukocytosis despite the osteomyelitic part of the bone been removed. Patient also demonstrated low-grade fever but further workup to find source of infection was not successful. We are monitoring the patient off antibiotics. Repeated blood culture on July 23 still negative, continue to follow. ID consult appreciated. Per ID, USG of Rt BKA stump to search for possible septic hematoma given his leukocytosis and blood loss anemia, was negative. CT scan of abdomen and pelvis with IV contrast has been ordered to assess for foci of infection. Awaiting results. -Diabetic diet -DVT prophylaxis: Subcutaneous Lovenox -Pain plan: Pain medication has been changed to oxycodone from Percocet to avoid acetaminophen, that might have been hiding/masking fever response. Patient 5 mg of oxycodone for moderate pain and 10 mg of oxycodone tablets for severe pain. For breakthrough pain despite this he can have IV morphine. Patient seems to be tolerating it well. -Patient is full code Problem List: 1. Osteomyelitis 2. S/P BKA (below knee amputation) unilateral 3. Diabetes mellitus 4. Hypertension Pain Ratin Pain Location: right BKA stump Pain Goal: Pain 4 or less Pain Plan: prn, pain meds changed to oxycodone from percocet Tomorrow's Labs & Rationales: CBC Consulting Request: Consulting Specialty: Thoracic/Vascular Surgery Consulting Physician: Dr. Harrison Reason for Consult: Advanced osteomyelitis for BKA Rt PETERSON PERKINS,ASH 07/28/16 1541: Attending MD Review Statement Attending Statement Attending MD Statement: examined this patient, discuss w/resident/PA/FITNESS AND WELLNESS DIRECTOR, agreed w/resident/PA/FITNESS AND WELLNESS DIRECTOR, reviewed EMR data (avail), discussed with nursing, discussed with case mgmt Attending Assessment/Plan: Patient is frustrated and tired. He hasn't participated as well with physical therapy as we had hoped. His temps have improved overall but his white count continues to rise. At this point ID is asking for a CT abdomen and pelvis with IV contrast look for possible intra-abdominal source of persistent leukocytosis and low-grade temperature.
[2016-07-28 09:09] LABS: ABSOLUTE BASOPHIL COUNT 0 /CUMM (0.0-0.2); ABSOLUTE EOSINOPHIL COUNT 0.2 /CUMM (0.0-0.7); ABSOLUTE GRANULOCYTE CT 16.5 /CUMM (1.4-6.5); ABSOLUTE LYMPH COUNT 1.5 /CUMM (1.2-3.4); ABSOLUTE MONOCYTE COUNT 1.8 /CUMM (0.10-0.60); BASOPHIL % 0.1 % (0.0-2.0); EOSINOPHIL % 1.2 % (0-5); GRANULOCYTE % 82.5 % (42.2-75.2); HEMATOCRIT 23.7 % (42-52); MEAN CORPUSCULAR HGB CONC 33.7 G/DL (33.0-37.0); MEAN CORPUSCULAR VOLUME 85.9 FL (80.0-94.0); MEAN PLATELET VOLUME 7.5 FL (7.4-10.4); PLATELET COUNT 556 /CUMM (130-400); RBC DISTRIBUTION WIDTH 15.3 % (11.5-14.5); RED BLOOD CELL CT 2.76 /CUMM (4.70-6.10)
--- NOTE | 2016-07-28 09:34 | NUR ---
WOUND CARE: LATE ENTRY 230 PM 07/27/[address] ECHAVARRIA PRESENT AT CHAIR SIDE - RIGHT LEG AMP SITE EDGES WELL APPROXIMATED - KEEGAN INTACT - NO EVIDENCE OF INFECTION - CONCERN RAISED OVER UNDERLYING FLUID COLLECTION / HEMATOMA AND NEED FOR ULTRASOUND TO R/O - DPD AND SARAH WRAP REAPPLIED - AWAITING RESULTS
[2016-07-28 10:30] VITALS: BP 126/80
[2016-07-28 13:47] VITALS: BP 130/80
--- NOTE | 2016-07-28 14:13 | PN- Infect Dx ---
Subjective Subjective: Afebrile. He feels poorly with anorexia and increased gas. He had 1 small bowel movement this morning, which was formed. He has moderate pain in the right leg, for which he is continuing to take Percocet. He denies any cough, shortness of breath, chest pain or urinary symptoms. Objective Last 24 Hrs of Vital Signs/I&O Vital Signs Date Time Temp Pulse Resp B/P B/P Pulse O2 O2 Flow FiO2 Mean Ox Delivery Rate 07/28 1347 98.0 96 20 130/80 99 Room Air 07/28 1030 126/80 07/28 0655 99.0 92 20 130/80 93 Room Air 07/27 2229 99.9 95 20 154/80 94 Room Air Intake & Output 07/28 1600 07/28 0800 07/28 0000 Intake Total 320 360 Output Total 150 300 Balance 170 60 Intake, Oral 320 360 Output, Urine 150 300 Physical Exam Other Physical Findings: He appears comfortable in no acute distress Lungs are clear Heart regular rhythm with no murmur Abdomen obese, soft, mildly tender on palpation over the lower abdomen, with no guarding or rebound, positive bowel sounds Back no CVA tenderness Extremities right leg dressing intact Results Last 24 Hours of Lab Results: Laboratory Tests 07/28 06 Hematology CBC w Diff NO MAN DIFF REQ WBC (4.8 - 10.8 /CUMM) 20.0 H RBC (4.70 - 6.10 /CUMM) 2.76 L Hgb (14.0 - 18.0 G/DL) 8.0 L Hct (42 - 52 %) 23.7 L MCV (80.0 - 94.0 FL) 85.9 MCH (27.0 - 31.0 PG) 29.0 RDW (11.5 - 14.5 %) 15.3 H Plt Count (130 - 400 /CUMM) 556 H MPV (7.4 - 10.4 FL) 7.5 Gran % (42.2 - 75.2 %) 82.5 H Lymphocytes % (20.5 - 51.1 %) 7.3 L Monocytes % (1.7 - 9.3 %) 8.9 Eosinophils % (0 - 5 %) 1.2 Basophils % (0.0 - 2.0 %) 0.1 Absolute Granulocytes (1.4 - 6.5 /CUMM) 16.5 H Absolute Lymphocytes (1.2 - 3.4 /CUMM) 1.5 Absolute Monocytes (0.10 - 0.60 /CUMM) 1.8 H Absolute Eosinophils (0.0 - 0.7 /CUMM) 0.2 Absolute Basophils (0.0 - 0.2 /CUMM) 0 PUBS MCHC (33.0 - 37.0 G/DL) 33.7 Last 24 Hours of Ramin Results: Blood cultures July 26 negative Recent Imaging Studies: Ultrasound of the right BKA stump July 27 reveals nonspecific soft tissue thickening with no evidence of any focal fluid collection Assessment/Plan Impression: Persistent leukocytosis of unclear etiology now 8 days status post right BKA, with recent blood and urine cultures and chest x-ray negative. His right BKA stump appeared clean yesterday, with no erythema or purulent drainage, and the ultrasound was negative for any collection. He does report anorexia with increased gas and has lower abdominal tenderness; therefore further imaging of his abdomen would be appropriate. He has no diarrhea to suggest C. difficile. Suggestion: 1. Would pursue a CT of the abdomen and pelvis with IV contrast 2. Continue to follow off antibiotics pending above
--- NOTE | 2016-07-28 16:03 | PN- Psychiatry ---
Assessment/Plan Impression: Identifying Info: 45-year-old single male presents to [facility] emergency department 07/13/2016 post near syncopal episode at wound care center. Subsequently had a right BKA due to osteomyelitis. Now on medicine. He has no formal psych history, consult requestsed for anxiety and depression eval. SUBJECTIVE Patient states "Overall I am okay." Reports continued issues struggling with feelings of uselessness and guilt. Difficulty seeing his improvement. Reports he has been making simple goals for himself on a daily basis. For example, consuming 2 more cups of water today. Brief ROS Gait: Impaired, some slow improvement Sleep: Impaired Appetite: Adequate OBJECTIVE Mental Status Exam Presentation/Appearance: Cooperative with evaluation. Hospital garb. Sitting in bed. Orientation: Grossly oriented Sensorium: Awake and alert Eye contact: Appropriate Affect: Blunted and tearful at times, congruent Mood: "Overall okay" Depression: Endorses Anxiety: Endorses Thought Content: - Denies SI/HI, AH/VH, PI. States and also believes they will not kill themselves. - Denies Hopeless/Helpless Thoughts Thought Process: Linear Associations: Appropriate Speech: Normal tone and rate Judgment: Fair Insight: Fair Cognition: Memory: Grossly intact Attention/Concentration: grossly intact Fund of Knowledge: Adequate Abstractions: Did not assess MMSE: Did not assess ASSESSMENT 45-year-old single male presents with sadness and anxiety related to chronic medical problems. It would help he is experiencing an increase in depression and anxiety status post operation. Is agreeable and would benefit from psychotropic medication at this time. Differential diagnosis Rule out adjustment disorder Rule out depressive disorder due to another medical condition Rule out dependent traits Suggestion: 1. Continue psychotropics as currently ordered. Encourage patient to premedicate with gabapentin for activities that make him anxious. 2. Continue to encourage patient to make tangible daily goals and track them. 3. Recommend continued support from pastoral care as patient received great benefit from this. Please order pastoral consult. Thank you for including psychiatry in this case will continue to follow. Subjective Subjective: as above Objective Last 24 Hrs of Vital Signs/I&O Current Medications Sig/Angela Start time Last Medication Dose Route Stop Time Status Admin Acetaminophen 650 MG Q6P PRN 07/20 1330 AC PO Amlodipine Besylate 10 MG DAILY 07/23 1000 AC 07/28 PO 1258 Atorvastatin Calcium 20 MG 1700 07/20 1700 AC 07/27 PO 1711 Benzonatate 100 MG TIDPRN PRN 07/20 1330 AC PO Diphenhydramine HCl 1 DANIELLE TID PRN 07/23 0815 AC 07/23 TOP 0907 Docusate Sodium 100 MG DAILY NEEDED PRN 07/20 1330 AC 07/21 PO 1016 Enoxaparin Sodium 40 MG DAILY 07/21 1000 AC 07/28 SC 1258 Escitalopram Oxalate 5 MG DAILY 07/27 1345 AC 07/28 PO 1258 Gabapentin 100 MG Q12P PRN 07/27 1315 AC PO Guaifenesin 10 ML Q6P PRN 07/20 1330 AC PO Insulin Aspart 0 TIDAC/HS 07/20 1700 AC 07/28 SC 1258 Insulin Detemir 25 UNITS BID 07/22 2200 AC 07/28 SC 1258 Ketorolac 30 MG ONCE PRN 07/20 2045 AC 07/20 Tromethamine IV 2055 Lisinopril 40 MG DAILY 07/21 1000 AC 07/28 PO 1258 Melatonin 5 MG AT BEDTIME 07/20 2200 AC 07/27 PO 2118 Morphine Sulfate 2 MG Q3P PRN 07/20 1345 AC 07/21 IV 0811 Oxycodone/ 2 TAB Q4P PRN 07/21 1400 AC 07/28 Acetaminophen PO 1257 Oxycodone/ 1 TAB Q4P PRN 07/20 1345 AC 07/20 Acetaminophen PO 1817 Polyethylene Glycol 17 GM DAILY 07/26 1000 AC 07/27 PO 0929 Senna/Docusate Sodium 2 TAB DAILY 07/22 0900 AC 07/27 PO 0930 Simethicone 80 MG Q8P PRN 07/28 1445 AC PO Simethicone 80 MG ONCE ONE 07/28 1315 DC 07/28 PO 07/28 1316 1336 Laboratory Tests 07/28/16 0620: CBC w Diff NO MAN DIFF REQ, RBC 2.76 L, MCV 85.9, MCH 29.0, RDW 15.3 H, MPV 7.5, Gran % 82.5 H, Lymphocytes % 7.3 L, Monocytes % 8.9, Eosinophils % 1.2, Basophils % 0.1, Absolute Granulocytes 16.5 H, Absolute Lymphocytes 1.5, Absolute Monocytes 1.8 H, Absolute Eosinophils 0.2, Absolute Basophils 0, PUBS MCHC 33.7 Vital Signs Date Time Temp Pulse Resp B/P B/P Pulse O2 O2 Flow FiO2 Mean Ox Delivery Rate 07/28 1347 98.0 96 20 130/80 99 Room Air 07/28 1030 126/80 07/28 0655 99.0 92 20 130/80 93 Room Air 07/27 2229 99.9 95 20 154/80 94 Room Air Intake & Output 07/28 1600 07/28 0800 07/28 0000 Intake Total 600 320 360 Output Total 150 300 Balance 600 170 60 Intake, Oral 600 320 360 Number 1 Bowel Movements Output, Urine 150 300
--- NOTE | 2016-07-28 17:00 | NUR ---
PT HAVING DIFFICULTY VOIDING. AT BASELINE, PT FEELS URGE TO GO AND HAS SIGNIFICANT HESITANCY. ONCE FLOW INITIATED, PT GENERALLY VOIDS LARGE AMOUNTS. ONLY ABLE TO VOID SMALL AMOUNTS (100ML) PER VOID. REPORTED TO DR. GALLAGHER. FLOMAX ORDERED. BLADDER PALPATED, FEELS SOFT AT THIS TIME. WILL MONITOR.
--- NOTE | 2016-07-28 18:27 | CT SCAN REPORT ---
EXAMINATION: CT ABDOMEN AND PELVIS WITH CONTRAST CLINICAL INFORMATION: Persistent leukocytosis. Recent BKA of the right leg. COMPARISON: Renal ultrasound 05/01/2016. TECHNIQUE: Multidetector volumetric imaging was performed of the abdomen and pelvis before and after the IV administration of 94 mL of Optiray 320 intravenous contrast. Sagittal and coronal reformatted images were obtained on the technologist's workstation. DLP: 1656 mGy-cm FINDINGS: LUNG BASES: Bibasilar subsegmental atelectasis. Elevated right hemidiaphragm. LIVER, GALLBLADDER, AND BILIARY TREE: The liver is normal in size, shape, and attenuation. No focal hepatic lesion or biliary ductal dilatation is present. The gallbladder is unremarkable with no evidence of radiopaque gallstones, gallbladder wall thickening, or obvious pericholecystic inflammatory changes. PANCREAS: Unremarkable. SPLEEN: Unremarkable. ADRENAL GLANDS: Unremarkable. KIDNEYS AND URETERS: The kidneys are normal in size, shape, and attenuation. No hydronephrosis, hydroureter, or calculi seen. Mild bilateral perinephric stranding. BLADDER: The bladder is distended without wall thickening. GASTROINTESTINAL TRACT: The stomach and small bowel are unremarkable. No dilated loops of bowel or evidence of obstruction. No colonic wall thickening or inflammatory changes. Prominent stool in the rectum. No free air or free fluid. ABDOMINAL WALL: No significant hernia is appreciated. LYMPH NODES: Normal. VASCULAR: Unremarkable. PELVIC VISCERA: The prostate and seminal vesicles are unremarkable. OSSEOUS STRUCTURES: No acute or suspicious osseous abnormality. Grade 1 anterolisthesis of L4 on L5 with bilateral pars defects at L4. Mild degenerative changes of the hips. IMPRESSION: 1. Distended bladder. Mild bilateral perinephric stranding. Infectious process not excluded. Correlate with urinalysis. 2. No additional inflammatory changes of the abdomen or pelvis.
--- NOTE | 2016-07-28 21:07 | NUR ---
PATIENT RETURNED FROM CT OF THE ABDOMEN AND RESULTS SHOWING DISTENDED BLADDER. DISCUSSED RESULTS WITH DR. LOERA. PER DR. LOERA, STRAIGHT CATHERIZE THE PATIENT AND SEND URINALYSIS AND CULTURE. CATHETERIZED FOR 2100ML OF CLEAR MAURICE URINE. SAMPLES SENT TO LAB. VOLUME REPORTED TO DR. KEY. WILL MONITOR.
--- NOTE | 2016-07-28 21:28 | Event Note ---
Event Note Event Note: Was informed by the nurse that patient put out 2100ml when he was straight cathed. Will put straight cath q8 PRN 4am: patient refused straight cath. does not feel urge to void, reports low po intake since last straight cath.
[2016-07-28 22:14] VITALS: BP 116/78
--- NOTE | 2016-07-29 04:02 | NUR ---
PT UNABLE TO VOID @ 0400. STATES HE DOES NOT FEEL ANY URGE TO VOID AT THIS TIME. REFUSED STRAIGHT CATH AT THIS TIME. ONEAL KEY MD NOTIFIED.
--- NOTE | 2016-07-29 06:11 | NUR ---
PT DENIES THE NEED TO VOID, REFUSED STRAIGHT CATH. STATES HE WILL LET STAFF KNOW WHEN HE NEEDS TO VOID.
[2016-07-29 06:30] VITALS: BP 138/80
--- NOTE | 2016-07-29 11:18 | PN- Housestaff ---
Subjective Follow-up For: Foot osteomyelitis status post right BKA; Leukocytosis 20.0 yesterday; Stable Anemia. Complaints: urinary retention Subjective: I followed up and examined the patient today. He is resting comfortably in bed, got his CAT scan of the abdomen and pelvis yesterday which revealed bilateral perinephric stranding and a distended bladder. He is on straight catheter protocol and drained significant amount of urine on straight catheter (2100ml) last night. Of note, he does not have any complaints of chest pain/fever/chills/shortness of breath. His pain medication was changed from Percocet to oxycodone only yesterday. Review of Systems Constitutional: Reports: no symptoms. Objective Last 24 Hrs of Vital Signs/I&O Vital Signs Date Time Temp Pulse Resp B/P B/P Pulse O2 O2 Flow FiO2 Mean Ox Delivery Rate 07/29 0937 96 138/80 07/29 0937 96 138/80 07/29 0936 96 138/80 07/29 0800 Room Air 07/29 0630 99.0 96 20 138/80 95 Room Air 07/29 0200 99.5 07/28 2214 100.0 95 20 116/78 96 07/28 1347 98.0 96 20 130/80 99 Room Air Intake & Output 07/29 1600 07/29 0800 07/29 0000 Intake Total 130 250 Output Total 2100 Balance 130 -1850 Intake, IV 10 10 Intake, Oral 120 240 Number 1 Bowel Movements Output, Urine 2100 Physical Exam General Appearance: Alert, Oriented X3, Cooperative, obese Other Physical Findings: Skin: No Rashes Skin Temp/Moisture Exam: Warm/Dry Sepsis Skin Exam (color): Normal for Ethnicity HEENT: Atraumatic Neck: Supple Cardiovascular: Regular Rate, Normal S1, Normal S2 Lungs: Clear to Auscultation, Normal Air Movement, bases have minimal crackles, bot in distress Abdomen: Normal Bowel Sounds, Soft, No Tenderness, obese Neurological: Normal Speech, Normal Tone Extremities: No Clubbing, No Cyanosis, BKA right, dressing is not soaked Current Medications: Current Medications Sig/Angela Start time Last Medication Dose Route Stop Time Status Admin Acetaminophen 650 MG Q6P PRN 07/20 1330 AC PO Amlodipine Besylate 10 MG DAILY 07/23 1000 AC 07/29 PO 0937 Atorvastatin Calcium 20 MG 1700 07/20 1700 AC 07/28 PO 1825 Benzonatate 100 MG TIDPRN PRN 07/20 1330 AC PO Diphenhydramine HCl 1 DANIELLE TID PRN 07/23 0815 AC 07/23 TOP 0907 Docusate Sodium 100 MG DAILY NEEDED PRN 07/20 1330 AC 07/21 PO 1016 Enoxaparin Sodium 40 MG DAILY 07/21 1000 AC 07/29 SC 0937 Escitalopram Oxalate 5 MG DAILY 07/27 1345 AC 07/29 PO 0937 Gabapentin 100 MG Q12P PRN 07/27 1315 AC PO Guaifenesin 10 ML Q6P PRN 07/20 1330 AC PO Insulin Aspart 0 TIDAC/HS 07/20 1700 AC 07/29 SC 0936 Insulin Detemir 25 UNITS BID 07/22 220 AC 07/29 SC 0935 Ketorolac 30 MG ONCE PRN 07/20 2045 AC 07/20 Tromethamine IV 2055 Lisinopril 40 MG DAILY 07/21 1000 AC 07/29 PO 0936 Melatonin 5 MG AT BEDTIME 07/20 2200 07/28 PO 2113 Morphine Sulfate 2 MG Q3P PRN 07/20 1345 07/21 IV 0811 Oxycodone HCl 5 MG Q6P PRN 07/28 1700 AC PO Oxycodone HCl 10 MG Q6-PRN PRN 07/28 1700 AC 07/29 PO 0705 Oxycodone/ 2 TAB Q4P PRN 07/21 1400 DC 07/28 Acetaminophen PO 1257 Oxycodone/ 1 TAB Q4P PRN 07/20 1345 DC 07/20 Acetaminophen PO 1817 Polyethylene Glycol 17 GM DAILY 07/26 1000 AC 07/27 PO 0929 Senna/Docusate Sodium 2 TAB DAILY 07/22 0900 07/27 PO 0930 Simethicone 80 MG Q8P PRN 07/28 1445 AC PO Simethicone 80 MG ONCE ONE 07/28 1315 DC 07/28 PO 07/28 1316 1336 Tamsulosin HCl 0.4 MG DAILY 07/28 1708 AC 07/29 PO 0937 Last 24 Hrs of Lab/Ramin Results Last 24 Hrs of Labs/Mics: Laboratory Tests 07/28/16 2030: Urine Color YEL, Urine Clarity CLEAR, Urine pH 6.5, Ur Specific [place] 1.015, Urine Protein 30 H, Urine Ketones TRACE H, Urine Nitrite NEG, Urine Bilirubin NEG, Urine Urobilinogen 1.0, Ur Leukocyte Esterase NEG, Ur Microscopic SEDIMENT EXAMINED, Urine WBC RARE, Urine Bacteria RARE H, Urine Mucus RARE, Urine Hemoglobin NEG, Urine Glucose NEG Microbiology 07/28 2029 URINE ROUT: Urine Culture - RES Assessment/Plan Assessment: This is 45 year old male with past medical history of diabetes who was treated for right lower extremity osteomyelitis/infected right foot plantar ulcer requiring amputation of right great toe s/p 4 weeks course of IV Unasyn with placement of wound VAC. Following subsequent development of the osteomyelitis the patient had right BKA on July 20. Acute osteomyelitis right foot, s/p Right BKA on 07/20/16 Patient was started on IV unasyn on presentation but currently off antibiotics after amputation. Profiler Hand, Dr. Dowd, vascular surgeon and infectious disease specialist, Larry Cao MD are on board. Initial blood cultures were negative, but was later sent again when he spiked a fever, which is pending final results. The patient had a right BKA on July 20. Post procedure there was some bleeding from the surgical site which was maintained with further reinforcement of the dressing. Local wound care is being done with regular dressing. Hypertension Patient has history of hypertension. He takes lisinopril and amlodipine at home which he continues to take during the course of this admission. Blood pressure has remained stable. Continue to take BP meds and monitor pressure. Diabetes mellitus. Patient has history of diabetes mellitus. At home the patient takes metformin , Januvia and Levemir insulin 25 units. We are holding the oral antidiabetic medications and the patient is kept on Levemir and insulin sliding scale before meals. Initial sugar was in the higher side around 300s, with increase of Levemir to 25 sugar and changed to high dose insulin sliding scale as well, thus is more controlled for the past 24 hours. Acute blood loss anemia Patient presented with hemoglobin of 12.5, postprocedure hemoglobin dropped to 9.9 and continued dropping to lowest level of 8.0 on July 24. We will continue to monitor hemoglobin and target to maintain above 8.0. Type and screen order in place and consent already obtained if necessary for BT. Yesterday morning's H &H was stable at 8.0/23.7. Will watch daily. Leukocytosis Patient presented with leukocytosis of around 19,400, in the initial days there was slight decrease after the antibiotics, and then he got the BKA. However starting from , there has been a persistant leukocytosis despite the osteomyelitic part of the bone removed. Patient also demonstrated low-grade fever but further workup to find source of infection was not successful. We are monitoring the patient off antibiotics. Repeated blood culture on July 23 negative, ID consult appreciated. USG of Rt BKA stump to search for possible septic hematoma given his leukocytosis and blood loss anemia, was negative. CT scan of abdomen and pelvis with IV contrast couldn't identify any foci of infection except for bilateral perinephric stranding, but the patient does not have any urinary symptoms other than retention that started yesterday. He is on a straight cath protocol. Patient seems to be compliant with incentive spirometry. Of note, the patient as well as his mother has been counseled extensively about his current situation after the surgery, including his persistent leukocytosis and low-grade fever, and the search for sources of infection. The patient and his family members seemed to understand the current situation and also are well aware of his results coming out negative/normal, ruling out most of the possible foci of infection, i.e., chest, abdomen, surgical site, urine. Discharge disposition: The patient's condition remains stable, without any obvious source of infection, and with extensive workup having been done, there is a chance that he could be sent to a short-term rehabilitation facility with a close follow-up with labs ordered specially for his leukocytosis. However at this point of time, we will wait for his tomorrow morning labs in plan accordingly. Patient has been made aware of the plan. -Diabetic diet -DVT prophylaxis: Subcutaneous Lovenox -Pain plan: Pain medication has been changed to oxycodone from Percocet to avoid acetaminophen, that might have been hiding/masking fever response. Patient 5 mg of oxycodone for moderate pain and 10 mg of oxycodone tablets for severe pain. For breakthrough pain despite this he can have IV morphine. Patient seems to be tolerating it well. -Patient is full code Problem List: 1. Osteomyelitis 2. S/P BKA (below knee amputation) unilateral 3. Leukocytosis 4. Diabetes mellitus 5. Hypertension Pain Ratin Pain Location: right leg stump Pain Goal: Pain 4 or less Pain Plan: as ordered Tomorrow's Labs & Rationales: CBC, BEP Consulting Request: Consulting Specialty: Thoracic/Vascular Surgery Consulting Physician: Dr. Harrison Reason for Consult: Advanced osteomyelitis for BKA Rt
--- NOTE | 2016-07-29 11:46 | PN- Att Addend ---
Attending MD Review Statement Attending Statement Attending MD Statement: examined this patient, discuss w/resident/PA/HOME VISITOR [employer], agreed w/resident/PA/HOME VISITOR [employer], reviewed EMR data (avail), discussed w/nursing Attending Assessment/Plan: Laboratory Tests 07/28/16 2030: Urine Color YEL, Urine Clarity CLEAR, Urine pH 6.5, Ur Specific [place] 1.015, Urine Protein 30 H, Urine Ketones TRACE H, Urine Nitrite NEG, Urine Bilirubin NEG, Urine Urobilinogen 1.0, Ur Leukocyte Esterase NEG, Ur Microscopic SEDIMENT EXAMINED, Urine WBC RARE, Urine Bacteria RARE H, Urine Mucus RARE, Urine Hemoglobin NEG, Urine Glucose NEG Vital Signs Date Time Temp Pulse Resp B/P B/P Pulse O2 O2 Flow FiO2 Mean Ox Delivery Rate 07/29 0937 96 138/80 07/29 0937 96 138/80 07/29 0936 96 138/80 07/29 0800 Room Air 07/29 0630 99.0 96 20 138/80 95 Room Air 07/29 0200 99.5 07/28 2214 100.0 95 20 116/78 96 07/28 1347 98.0 96 20 130/80 99 Room Air Patient seen and examined at bedside. Discussed with patient the care plan. Patient status post below-knee amputation on the right side and currently being monitored for high white count as well as fevers. Patient had ultrasound of the stump area which did not show any fluid collection as well as had CAT scan of the abdomen and pelvis done yesterday which did not show any significant findings to suggest ongoing infection in the abdomen. His white count yesterday was 20,000 and we do not have a repeat white count from today. Also his sodium level was low at 120 on July 27, we will repeat the BMP tomorrow along with the white count. Patient denies any diarrhea, denies any headaches or sinus pain, denies any chest pain or back pain. Unclear etiology for leukocytosis as well as low-grade fever. We will continue to monitor him closely and repeat his labs tomorrow. Patient does have some urinary retention and straight catheter done today was positive for 600 mL of urine retention. Most likely cause of urinary retention could be pain medication. We will repeat straight catheter as needed every shift for urinary retention. His urine analysis was done was negative for any infection.
--- NOTE | 2016-07-29 12:46 | PN- Psychiatry ---
See Addendum Assessment/Plan Impression: Identifying Info: 45-year-old single male presents to [facility] emergency department 07/13/2016 post near syncopal episode at wound care center. Subsequently had a right BKA due to osteomyelitis. Now on medicine. He has no formal psych history, consult requestsed for anxiety and depression. SUBJECTIVE Patient states "I'm still feeling down." Reports anxiety r/t impending transfer to chair this afternoon. Getting out of bed in general is anxiety provoking at present. "I just don't feel like myself." He is agreeable to trying PRN anxiety medication. Brief ROS Gait: Impaired Sleep: Impaired Appetite: Poor today OBJECTIVE Mental Status Exam Presentation/Appearance: Cooperative with evaluation. Hospital garb. Sitting in bed. Orientation: Grossly oriented Sensorium: Awake and alert Eye contact: Appropriate Affect: Blunted, congruent Mood: "Down" Depression: Endorses Anxiety: Endorses Thought Content: - Denies SI/HI, AH/VH, PI. States and also believes they will not kill themselves. - Endorses Hopeless/Helpless Thoughts at times Thought Process: Linear Associations: Appropriate Speech: Normal tone and rate Judgment: Fair Insight: Fair Cognition: Memory: Grossly intact Attention/Concentration: grossly intact Fund of Knowledge: Adequate Abstractions: Did not assess MMSE: Did not assess ASSESSMENT 45-year-old single male presents with sadness and anxiety related to chronic medical problems. It would help he is experiencing an increase in depression and anxiety status post operation. Is agreeable and would benefit from psychotropic medication at this time. Would benefit from increased in melatonin. Diagnosis Rule out adjustment disorder Rule out depressive disorder due to another medical condition Rule out dependent traits Suggestion: 1. Continue psychotropics as currently ordered. Encourage patient to premedicate with gabapentin for activities that make him anxious. 2. Continue to encourage patient to make tangible daily goals and track them. 3. Recommend continued support from pastoral care as patient received great benefit from this. Please order pastoral consult. 4. Please increase melatonin to 10mg qhs. Thank you for including psychiatry in this case will continue to follow. Subjective Subjective: as above Objective Last 24 Hrs of Vital Signs/I&O Current Medications Sig/Angela Start time Last Medication Dose Route Stop Time Status Admin Acetaminophen 650 MG Q6P PRN 07/20 1330 AC PO Amlodipine Besylate 10 MG DAILY 07/23 1000 AC 07/29 PO 0937 Atorvastatin Calcium 20 MG 1700 07/20 1700 AC 07/28 PO 1825 Benzonatate 100 MG TIDPRN PRN 07/20 1330 AC PO Diphenhydramine HCl 1 DANIELLE TID PRN 07/23 0815 AC 07/23 TOP 0907 Docusate Sodium 100 MG DAILY NEEDED PRN 07/20 1330 AC 07/21 PO 1016 Enoxaparin Sodium 40 MG DAILY 07/21 1000 AC 07/29 SC 0937 Escitalopram Oxalate 5 MG DAILY 07/27 1345 AC 07/29 PO 0937 Gabapentin 100 MG Q12P PRN 07/27 1315 AC PO Guaifenesin 10 ML Q6P PRN 07/20 1330 AC PO Insulin Aspart 0 TIDAC/HS 07/20 1700 AC 07/29 SC 0936 Insulin Detemir 25 UNITS BID 07/22 2200 AC 07/29 SC 0935 Ketorolac 30 MG ONCE PRN 07/20 2045 AC 07/20 Tromethamine IV 2055 Lisinopril 40 MG DAILY 07/21 1000 AC 07/29 PO 0936 Melatonin 5 MG AT BEDTIME 07/20 2200 AC 07/28 PO 2113 Morphine Sulfate 2 MG Q3P PRN 07/20 1345 AC 07/21 IV 0811 Oxycodone HCl 5 MG Q6P PRN 07/28 1700 AC PO Oxycodone HCl 10 MG Q6-PRN PRN 07/28 1700 AC 07/29 PO 0705 Oxycodone/ 2 TAB Q4P PRN 07/21 1400 DC 07/28 Acetaminophen PO 1257 Oxycodone/ 1 TAB Q4P PRN 07/20 1345 DC 07/20 Acetaminophen PO 1817 Polyethylene Glycol 17 GM DAILY 07/26 1000 AC 07/27 PO 0929 Senna/Docusate Sodium 2 TAB DAILY 07/22 0900 AC 07/27 PO 0930 Simethicone 80 MG Q8P PRN 07/28 1445 AC PO Simethicone 80 MG ONCE ONE 07/28 1315 DC 07/28 PO 07/28 1316 1336 Tamsulosin HCl 0.4 MG DAILY 07/28 1708 AC 07/29 PO 0937 Laboratory Tests 07/28/16 2030: Urine Color YEL, Urine Clarity CLEAR, Urine pH 6.5, Ur Specific [place] 1.015, Urine Protein 30 H, Urine Ketones TRACE H, Urine Nitrite NEG, Urine Bilirubin NEG, Urine Urobilinogen 1.0, Ur Leukocyte Esterase NEG, Ur Microscopic SEDIMENT EXAMINED, Urine WBC RARE, Urine Bacteria RARE H, Urine Mucus RARE, Urine Hemoglobin NEG, Urine Glucose NEG Vital Signs Date Time Temp Pulse Resp B/P B/P Pulse O2 O2 Flow FiO2 Mean Ox Delivery Rate 07/29 0937 96 138/80 07/29 0937 96 138/80 07/29 0936 96 138/80 07/29 0800 Room Air 07/29 0630 99.0 96 20 138/80 95 Room Air 07/29 0200 99.5 07/28 2214 100.0 95 20 116/78 96 07/28 1347 98.0 96 20 130/80 99 Room Air Intake & Output 07/29 1600 07/29 0800 07/29 0000 Intake Total 130 250 Output Total 2100 Balance 130 -1850 Intake, IV 10 10 Intake, Oral 120 240 Number 1 Bowel Movements Output, Urine 2100
--- NOTE | 2016-07-29 14:02 | NUR ---
PHYSICAL THERAPY: ATTMEPTED TO SEE Pt THIS AFTERNOON. Pt VISIBLY UPSET, BEGINING TO CRY, STATING HE DOES NOT FEEL WELL AND HAS BEEN UNABLE TO EAT. WITH ENCOURAGEMENT FROM RN AND PT, Pt CONTINUES TO REFUSE. PATIENT'S MOTHER PULLS THIS P.T. ASIDE TO DISCUSS HER SON'S CURRENT EMOTIONAL AND MEDICAL STATE, FEELS THAT STAFF DOES NOT UNDERSTNAD WHAT HE IS GOING THROUGH OR LISTENING TO HIS COMPLIANTS. FAMILY OFFERED COMFORT AND EDUCATION, CM NOTIFIED TO MEET WITH FAMILY.
[2016-07-29 14:24] VITALS: BP 128/64
--- NOTE | 2016-07-29 14:30 | PN- Infect Dx ---
Subjective Subjective: MAXIMUM TEMPERATURE 100. He was catheterized for 2100 mL of urine last night and for 600 mL of urine this morning but he refused catheterization overnight. He continues to complain of pain in the right leg but offers no other complaints. Objective Last 24 Hrs of Vital Signs/I&O Vital Signs Date Time Temp Pulse Resp B/P B/P Pulse O2 O2 Flow FiO2 Mean Ox Delivery Rate 07/29 0937 96 138/80 07/29 0937 96 138/80 07/29 0936 96 138/80 07/29 0800 Room Air 07/29 0630 99.0 96 20 138/80 95 Room Air 07/29 0200 99.5 07/28 2214 100.0 95 20 116/78 96 Intake & Output 07/29 1600 07/29 0800 07/29 0000 Intake Total 130 250 Output Total 2100 Balance 130 -1850 Intake, IV 10 10 Intake, Oral 120 240 Number 1 Bowel Movements Output, Urine 2100 Physical Exam Other Physical Findings: He appears anxious/depressed but is in no acute distress Abdomen is obese, soft, nontender Back no CVA tenderness Extremities right leg dressing intact Results Last 24 Hours of Lab Results: Laboratory Tests 07/28 2029 Urines Urine Color (YEL,AMB,STR) YEL Urine Clarity (CLEAR) CLEAR Urine pH (5.0 - 8.0) 6.5 Ur Specific [place] (1.001 - 1.035) 1.015 Urine Protein (NEG,<30 MG/DL) 30 H Urine Ketones (NEG) TRACE H Urine Nitrite (NEG) NEG Urine Bilirubin (NEG) NEG Urine Urobilinogen (0.1 - 1.0 EU/dl) 1.0 Ur Leukocyte Esterase (NEG) NEG Ur Microscopic SEDIMENT EXAMINED Urine WBC (0 - 2 /HPF) RARE Urine Bacteria (NEG/NONE) RARE H Urine Mucus (FEW,NONE) RARE Urine Hemoglobin (NEG) NEG Urine Glucose (N MG/DL) NEG Last 24 Hours of Ramin Results: Blood cultures 2 July 26 negative Urine culture July 28 negative Recent Imaging Studies: CT of the abdomen and pelvis July 28 reveals mild bilateral perinephric stranding and a distended bladder without wall thickening Assessment/Plan Impression: Intermittent low-grade fevers and persistent leukocytosis may be secondary to his urinary retention, with 2100 mL of urine obtained on straight catheterization last evening after the CT scan of the abdomen and pelvis revealed a distended bladder. Though the CT scan did demonstrate perinephric stranding his urinalysis and urine culture are negative. He has no obvious source of infection now 9 days status post right BKA, with his right BKA stump clean with no evidence on recent ultrasound for any collection, and with his recent cultures and chest x-ray negative. Have reinforced with patient the need to abide by the straight catheterization protocol. His urinary retention is likely multifactorial secondary to pain, pain medication and bedrest, with a possible component of his diabetes. Suggestion: 1. Straight catheterization per protocol 2. Follow-up recent urine culture 3. Continue to follow off antibiotics
--- NOTE | 2016-07-29 20:33 | NUR ---
PT ALLOWED THIS RN TO STRAIGHT CATH ONE TIME FOR MY SHIFT, MD GALLAGHER AWARE. WILL CONTINUE TO MONITOR.
[2016-07-29 23:16] VITALS: BP 120/70
[2016-07-30 06:00] VITALS: BP 134/80
[2016-07-30] MEDS ORDERED: OXYCODONE HCL5 M1 PO ×2 (06:27→06:28)
[2016-07-30] MEDS ORDERED: GABAPENTIN100 M2 PO (06:28)
[2016-07-30] MEDS ORDERED: SIMETHICONE80 M1 PO (06:29)
[2016-07-30] MEDS ORDERED: LEXAPRO5 M1 PO (06:29)
[2016-07-30] MEDS ORDERED: MIRALAX119 GM PO (06:30)
[2016-07-30] MEDS ORDERED: SENNA PLUS TAB1 EACH PO (06:30)
[2016-07-30] MEDS ORDERED: MELATONIN5 M7 PO (06:31)
--- NOTE | 2016-07-30 06:32 | PN- Housestaff ---
ELLIOTT PERKINS,DOMITILA 07/30/16 0632: Subjective Follow-up For: Foot osteomyelitis status post right BKA; Leukocytosis; Stable Anemia. Complaints: no complaints Subjective: I followed up and examined the patient today. He is resting comfortably in his bed, does not offer any complaints, mentions that he feels better today, is still on straight cath protocol with the last one draining 250 mL, vitals have been stable, no fever or chills, no overnight issues. Review of Systems Constitutional: Reports: no symptoms. Objective Last 24 Hrs of Vital Signs/I&O Vital Signs Date Time Temp Pulse Resp B/P B/P Pulse O2 O2 Flow FiO2 Mean Ox Delivery Rate 07/30 1218 98.4 91 20 134/80 07/30 1035 91 134/80 07/30 1035 91 134/80 07/30 1035 91 134/80 07/30 0600 98.4 91 20 134/80 95 Room Air 07/29 2316 99.0 94 20 120/70 97 Room Air Intake & Output 07/30 1600 07/30 0800 07/30 0000 Intake Total 100 200 Output Total 600 250 Balance -600 -150 200 Intake, Oral 100 200 Number 1 1 Bowel Movements Output, Urine 600 250 Physical Exam General Appearance: Alert, Oriented X3, Cooperative, No Acute Distress, obese Other Physical Findings: Skin: No Rashes Skin Temp/Moisture Exam: Warm/Dry Sepsis Skin Exam (color): Normal for Ethnicity HEENT: Atraumatic Neck: Supple Cardiovascular: Regular Rate, Normal S1, Normal S2 Lungs: Clear to Auscultation, Normal Air Movement, bases have minimal crackles, not in distress Abdomen: Normal Bowel Sounds, Soft, No Tenderness, obese, no CVA tenderness Neurological: Normal Speech, Normal Tone Extremities: No Clubbing, No Cyanosis, BKA right, dressing is not soaked Current Medications: Current Medications Sig/Angela Start time Last Medication Dose Route Stop Time Status Admin Acetaminophen 650 MG Q6P PRN 07/20 1330 DCD PO Amlodipine Besylate 10 MG DAILY 07/23 1000 DCD 07/30 PO 1035 Atorvastatin Calcium 20 MG 1700 07/20 1700 DCD 07/29 PO 1748 Benzonatate 100 MG TIDPRN PRN 07/20 1330 DCD PO Diphenhydramine HCl 1 DANIELLE TID PRN 07/23 0815 DCD 07/23 TOP 0907 Docusate Sodium 100 MG DAILY NEEDED PRN 07/20 1330 DCD 07/21 PO 1016 Enoxaparin Sodium 40 MG DAILY 07/21 1000 DCD 07/30 SC 1035 Escitalopram Oxalate 5 MG DAILY 07/27 1345 DCD 07/30 PO 1035 Gabapentin 100 MG Q12P PRN 07/27 1315 DCD 07/29 PO 1748 Guaifenesin 10 ML Q6P PRN 07/20 1330 DCD PO Insulin Aspart 0 TIDAC 07/30 0800 DCD SC Insulin Aspart 0 AT BEDTIME 07/29 220 DCD SC Insulin Aspart 0 TIDAC/HS 07/20 1700 DC 07/29 SC 1256 Insulin Detemir 25 UNITS BID 07/22 2199 DCD 07/30 SC 1034 Ketorolac 30 MG ONCE PRN 07/20 204 DCD 07/20 Tromethamine IV 2055 Lisinopril 40 MG DAILY 07/21 1000 DCD 07/30 PO 1035 Melatonin 10 MG AT BEDTIME 07/29 220 DCD 07/29 PO 2129 Morphine Sulfate 2 MG Q3P PRN 07/20 1345 DCD 07/30 IV 0104 Oxycodone HCl 5 MG Q6P PRN 07/28 1700 DCD PO Oxycodone HCl 10 MG Q6-PRN PRN 07/28 1700 DCD 07/30 PO 1034 Polyethylene Glycol 17 GM DAILY 07/26 1000 DCD 07/27 PO 0929 Senna/Docusate Sodium 2 TAB DAILY 07/22 0900 DCD 07/27 PO 0930 Simethicone 80 MG Q8P PRN 07/28 1445 DCD 07/29 PO 1543 Tamsulosin HCl 0.4 MG DAILY 07/28 1708 DCD 07/30 PO 1035 Last 24 Hrs of Lab/Ramin Results Last 24 Hrs of Labs/Mics: Laboratory Tests 07/30/16 0616: Anion Gap 11, Estimated GFR > 60, BUN/Creatinine Ratio 32.5 H, CBC w Diff NO MAN DIFF REQ, RBC 3.04 L, MCV 86.0, MCH 28.5, RDW 16.2 H, MPV 7.6, Gran % 83.0 H, Lymphocytes % 7.8 L, Monocytes % 8.0, Eosinophils % 1.1, Basophils % 0.1, Absolute Granulocytes 17.1 H, Absolute Lymphocytes 1.6, Absolute Monocytes 1.7 H, Absolute Eosinophils 0.2, Absolute Basophils 0, PUBS MCHC 33.1 Assessment/Plan Assessment: This is 45 year old male with past medical history of diabetes who was treated for right lower extremity osteomyelitis/infected right foot plantar ulcer requiring amputation of right great toe s/p 4 weeks course of IV Unasyn with placement of wound VAC. Following subsequent development of the osteomyelitis the patient had right BKA on July 20. Acute osteomyelitis right foot, s/p Right BKA on 07/20/16 Patient was started on IV unasyn on presentation but currently off antibiotics after amputation. Crosstie Inspector, Dr. Dowd, vascular surgeon and infectious disease specialist, Larry Cao MD are on board. Initial blood cultures were negative, but was later sent again when he spiked a fever, which is pending final results. The patient had a right BKA on July 20. Post procedure there was some bleeding from the surgical site which was maintained with further reinforcement of the dressing. Local wound care is being done with regular dressing. Hypertension Patient has history of hypertension. He takes lisinopril and amlodipine at home which he continues to take during the course of this admission. Blood pressure has remained stable. Continue to take BP meds and monitor pressure. Diabetes mellitus. Patient has history of diabetes mellitus. At home the patient takes metformin , Januvia and Levemir insulin 25 units. We are holding the oral antidiabetic medications and the patient is kept on Levemir and insulin sliding scale before meals. Initial sugar was in the higher side around 300s, with increase of Levemir to 25 sugar and changed to high dose insulin sliding scale as well, thus is more controlled. Acute blood loss anemia Patient presented with hemoglobin of 12.5, postprocedure hemoglobin dropped to 9.9 and continued dropping to lowest level of 8.0 on July 24. We will continue to monitor hemoglobin and target to maintain above 8.0. Type and screen order in place and consent already obtained if necessary for BT. hasn't received so far.This morning's H&H was stable at 8.6/26.1. Leukocytosis Patient presented with leukocytosis of around 19,400, in the initial days there was slight decrease after the antibiotics, and then he got the BKA. However starting from 15th, there has been a persistant leukocytosis despite the osteomyelitic part of the bone removed. Patient also demonstrated low-grade fever but further workup to find source of infection was not successful. We are monitoring the patient off antibiotics. Repeated blood culture on July 23 negative, ID consult appreciated. USG of Rt BKA stump to search for possible septic hematoma given his leukocytosis and blood loss anemia, was negative. CT scan of abdomen and pelvis with IV contrast couldn't identify any foci of infection except for bilateral perinephric stranding, but the patient does not have any urinary symptoms other than retention that started yesterday. He is on a straight cath protocol. Patient seems to be compliant with incentive spirometry. Of note, the patient as well as his mother, his fiancee have been counseled extensively about his current situation after the surgery, including his persistent leukocytosis and low-grade fever, and the search for sources of infection. The patient and his family members seemed to understand the current situation and also are well aware of his results coming out negative/normal, ruling out most of the possible foci of infection, i.e., chest, abdomen, surgical site, urine. Patient and family members are agreeable to discharging him to a short-term rehabilitation for more physical therapy with a follow-up of CBC to follow-up on persistent leukocytosis with Larry Cao MD, infectious disease service. Discharge disposition: The patient's condition remains stable, without any obvious source of infection, and with extensive workup having been done, so we are discharging the patient to short-term rehabilitation facility with a close follow-up with labs ordered specially for his leukocytosis. -Diabetic diet -DVT prophylaxis: Subcutaneous Lovenox -Pain plan: Adequate per patient. Patient has 5 mg of oxycodone for moderate pain and 10 mg of oxycodone tablets for severe pain. For breakthrough pain despite this he can have IV morphine. Patient seems to be tolerating it well. -Patient is full code Problem List: 1. Osteomyelitis 2. S/P BKA (below knee amputation) unilateral 3. Leukocytosis 4. Diabetes mellitus 5. Hypertension Pain Ratin Pain Location: right BKA stump Pain Goal: Pain 4 or less Pain Plan: prn as above Tomorrow's Labs & Rationales: - Consulting Request: Consulting Specialty: Thoracic/Vascular Surgery Consulting Physician: Dr. Harrison Reason for Consult: Advanced osteomyelitis for BKA Rt PETERSON PERKINS,ASH 07/30/16 1246: Attending MD Review Statement Attending Statement Attending MD Statement: examined this patient, discuss w/resident/PA/PUBLICITY EXPERT, agreed w/resident/PA/PUBLICITY EXPERT, discussed with family, reviewed EMR data (avail), discussed with nursing, discussed with case mgmt, reviewed images Attending Assessment/Plan: I spent a lot of time with the patient. Overall he is in good spirits about leaving today but is worried about his underlying medical condition. He is a 45-year-old male with a past medical history of poorly controlled diabetes, hypertension and hyperlipidemia who is here with an acute osteomyelitis now status post right BKA on 07/20. His postoperative hospital course was complicated by persistent low-grade fevers and leukocytosis with an extensive workup that has been negative to date including a CT of the abdomen and pelvis, ultrasound of the hematoma stump, chest x-ray, UA and urine cultures. As per ID with been watching him off antibiotics but his white count remains in the 17-20,000 range. He also developed postop urinary retention which is likely multifactorial including pain, pain medications, diabetic autonomic neuropathy and bedrest. He requires a lot of motivation to work with physical therapy and get out of bed and is unhappy about multiple things obviously the BKA being the most important. I spent about 38 minutes explaining at length the need for aggressive PT at rehabilitation, the need for close follow-up including a follow-up CBC on Wednesday , the need for close ID and vascular surgery follow-up. I also explained that we have him on multiple medications for pain and the straight cath protocol. At this point the plan is to discharge to [facility] with close outpatient follow-up. I have personally spoken to Larry Cao MD and although the leukocytosis has not resolved, given that he's been medically stable with an extensive so far this been negative the plan is to proceed with this as an outpatient.
[2016-07-30 08:29] LABS: ABSOLUTE BASOPHIL COUNT 0 /CUMM (0.0-0.2); ABSOLUTE EOSINOPHIL COUNT 0.2 /CUMM (0.0-0.7); ABSOLUTE GRANULOCYTE CT 17.1 /CUMM (1.4-6.5); ABSOLUTE LYMPH COUNT 1.6 /CUMM (1.2-3.4); ABSOLUTE MONOCYTE COUNT 1.7 /CUMM (0.10-0.60); BASOPHIL % 0.1 % (0.0-2.0); EOSINOPHIL % 1.1 % (0-5); HEMATOCRIT 26.1 % (42-52); MEAN CORPUSCULAR HGB 28.5 PG (27.0-31.0); MEAN CORPUSCULAR HGB CONC 33.1 G/DL (33.0-37.0); MEAN PLATELET VOLUME 7.6 FL (7.4-10.4); PLATELET COUNT 696 /CUMM (130-400); RBC DISTRIBUTION WIDTH 16.2 % (11.5-14.5); RED BLOOD CELL CT 3.04 /CUMM (4.70-6.10); WHITE BLOOD CELL COUNT 20.7 /CUMM (4.8-10.8)
[2016-07-30] MEDS ORDERED: SLOW FE142 MG PO (10:40)
--- NOTE | 2016-07-30 12:02 | PN- Psychiatry ---
Assessment/Plan Impression: Identifying Info: 45-year-old single male presents to emergency department 07/13/2016 post near syncopal episode at wound care center. Subsequently had a right BKA due to osteomyelitis. Now on medicine. He has no formal psych history, consult requestsed for anxiety and depression. SUBJECTIVE Patient states "I'm ready to go." Expresses hope for future and endorses improvement in sleep and anxiety. Discusses plans for rehab and future. Brief ROS Gait: Impaired Sleep: Improved, adequate Appetite: Improved but remains low OBJECTIVE Mental Status Exam Presentation/Appearance: Cooperative with evaluation. Hospital garb. Sitting in bed. Orientation: Grossly oriented Sensorium: Awake and alert Eye contact: Appropriate Affect: Blunted, congruent Mood: "Better" Depression: Endorses Anxiety: Endorses Thought Content: - Denies SI/HI, AH/VH, PI. States and also believes they will not kill themselves. - Endorses Hopeless/Helpless Thoughts at times Thought Process: Linear Associations: Appropriate Speech: Normal tone and rate Judgment: Fair Insight: Fair Cognition: Memory: Grossly intact Attention/Concentration: grossly intact Fund of Knowledge: Adequate Abstractions: Did not assess MMSE: Did not assess Per nursing report mood seems improved. Pt responded well to PRN gabapentin for anxiety yesterday. ASSESSMENT 45-year-old single male presents with sadness and anxiety related to chronic medical problems. It would help he is experiencing an increase in depression and anxiety status post operation. Is agreeable and would benefit from psychotropic medication at this time. Would benefit from continued psych intervention at rehab. Diagnosis Rule out adjustment disorder Rule out depressive disorder due to another medical condition Rule out dependent traits Suggestion: 1. Continue psychotropics as currently ordered. Encourage patient to premedicate with gabapentin for activities that make him anxious. 2. Please include in w10 to have patient followed by psychiatry at rehab. Thank you for including psychiatry in this case we are signing off. Subjective Subjective: as above Objective Last 24 Hrs of Vital Signs/I&O Current Medications Sig/Angela Start time Last Medication Dose Route Stop Time Status Admin Acetaminophen 650 MG Q6P PRN 07/20 1330 AC PO Amlodipine Besylate 10 MG DAILY 07/23 1000 AC 05/25 PO 1035 Atorvastatin Calcium 20 MG 1700 07/20 1700 AC 0524 PO 1748 Benzonatate 100 MG TIDPRN PRN 07/20 1330 AC PO Diphenhydramine HCl 1 DANIELLE TID PRN 07/23 0815 AC 07/23 TOP 0907 Docusate Sodium 100 MG DAILY NEEDED PRN 07/20 1330 AC 07/21 PO 1016 Enoxaparin Sodium 40 MG DAILY 07/21 1000 AC 07/30 SC 1035 Escitalopram Oxalate 5 MG DAILY 07/27 1345 AC 07/30 PO 1035 Gabapentin 100 MG Q12P PRN 07/27 1315 AC 07/29 PO 1748 Guaifenesin 10 ML Q6P PRN 07/20 1330 AC PO Insulin Aspart 0 TIDAC 07/30 0800 AC SC Insulin Aspart 0 AT BEDTIME 07/29 2200 AC SC Insulin Aspart 0 TIDAC/HS 07/20 1700 DC 07/29 SC 1256 Insulin Detemir 25 UNITS BID 07/22 220 AC 07/30 SC 1034 Ketorolac 30 MG ONCE PRN 07/20 2045 AC 07/20 Tromethamine IV 2055 Lisinopril 40 MG DAILY 07/21 1000 AC 07/30 PO 1035 Melatonin 10 MG AT BEDTIME 07/29 2200 AC 07/29 PO 2129 Melatonin 5 MG AT BEDTIME 07/20 2200 [place] 07/28 PO 2113 Morphine Sulfate 2 MG Q3P PRN 07/20 1345 07/30 IV 0104 Oxycodone HCl 5 MG Q6P PRN 07/28 1700 AC PO Oxycodone HCl 10 MG Q6-PRN PRN 07/28 1700 AC 07/30 PO 1034 Polyethylene Glycol 17 GM DAILY 07/26 1000 AC 07/27 PO 0929 Senna/Docusate Sodium 2 TAB DAILY 07/22 0900 07/27 PO 0930 Simethicone 80 MG Q8P PRN 07/28 1445 07/29 PO 1543 Tamsulosin HCl 0.4 MG DAILY 07/28 1708 07/30 PO 1035 Laboratory Tests 07/30/16 0616: Anion Gap 11, Estimated GFR > 60, BUN/Creatinine Ratio 32.5 H, CBC w Diff NO MAN DIFF REQ, RBC 3.04 L, MCV 86.0, MCH 28.5, RDW 16.2 H, MPV 7.6, Gran % 83.0 H, Lymphocytes % 7.8 L, Monocytes % 8.0, Eosinophils % 1.1, Basophils % 0.1, Absolute Granulocytes 17.1 H, Absolute Lymphocytes 1.6, Absolute Monocytes 1.7 H, Absolute Eosinophils 0.2, Absolute Basophils 0, PUBS MCHC 33.1 Vital Signs Date Time Temp Pulse Resp B/P B/P Pulse O2 O2 Flow FiO2 Mean Ox Delivery Rate 07/30 1035 91 134/80 07/30 1035 91 134/80 07/30 1035 91 134/80 07/30 0600 98.4 91 20 134/80 95 Room Air 07/29 2316 99.0 94 20 120/70 97 Room Air 07/29 1424 97.9 93 22 128/64 93 Intake & Output 07/30 1600 07/30 0800 07/30 0000 Intake Total 100 200 Output Total 600 250 Balance -600 -150 200 Intake, Oral 100 200 Number 1 1 Bowel Movements Output, Urine 600 250
[2016-07-30 12:18] VITALS: BP 134/80
[2016-08-18] MEDS ORDERED: LEVEMIR FL100 UNIT/1 SC (16:50)
== END 2016-07-30 12:45 | DRG 305 ==
LOC: ERH 12:56 → 1NO 15:42 → 2NA 15:42 → ERHI 15:42 → ENRESERV 22:18 → EDBEDREQ 22:18 → 1NO 22:53 → 2NA 07-18 22:47 → ENPENDDIS 07-30 11:03 → 2NA 07-30 12:45
PROVIDERS: Emergency Medicine; Internal Medicine; Physician Assistant Surgical; Preventive Medicine Public Health & General Preventive Medicine; ADMIT Internal Medicine
PROC: 0Y6H0Z1 Detachment at Right Lower Leg, High, Open Approach (ICD-10-PCS; principal; 2016-07-20)
DX: M86.171 Other acute osteomyelitis, right ankle and foot (principal); E11.42 Type 2 diabetes mellitus with diabetic polyneuropathy; E11.65 Type 2 diabetes mellitus with hyperglycemia; D62 Acute posthemorrhagic anemia; Z79.4 Long term (current) use of insulin; R33.9 Retention of urine, unspecified; I10 Essential (primary) hypertension; L97.329 Non-pressure chronic ulcer of left ankle with unspecified severity; D72.829 Elevated white blood cell count, unspecified
CPT/HCPCS: 1NSP; 2NASP; 75618; 36415; 73552; 74177; 76881; 81001; 82436; 86920; 87040; 87086; 88307; 93005; 93010; 97110-GO; 97116-GO; 97161-GP; 97165-GO; 97530-GO; J1644; J1650; J1815; J1885; J3490; J7042; P9016

== ENCOUNTER 2016-08-18 11:41 | Inpatient (IN) | payer OTHER ==
[~2016-08-18] VITALS: Ht 190.5 cm; Wt 115.7 kg
[~2016-08-18 11:41] MED LIST changes: +AMLODIPINE BESYL5 M1 PO; +BENZONATATE100 M1 PO; +DOCUSATE SODIU100 M3 PO; +GABAPENTIN100 M2 PO; +LEXAPRO5 M1 PO; +MELATONIN5 M7 PO; +MIRALAX119 GM PO; +PERCOCET 5-3251 EACH PO; +SENNA PLUS TAB1 EACH PO; +SIMETHICONE80 M1 PO; +SLOW FE142 MG PO; +TYLENOL325 M1 PO
--- NOTE | 2016-08-18 11:48 | NUR ---
JOSE C FROM [place] [facility] FOR EVAL OF ? PERIANAL ABSCESS VS HEMATOMA EVAL'ED BY PIN DRAFTER OPERATOR AT [facility]. PER STAFF, WOUND STARTED APPROX 08/14/16 AND PAIN HAS SINCE WORSENED AND PT IS REQUESTING AN EVALUATION. HE HAS A SCHEDULED APPT TODAY WITH DR STEEL TODAY AT 2PM FOR REEVAL OF RIGHT BKA SECONDARY TO DIABETIC COMPLICATIONS. TEMP 99.3 AT [facility] AND 98.5 ON ARRIVAL.
--- NOTE | 2016-08-18 12:03 | NUR ---
UPON ASSESSMENT, THERE APPEARS TO BE AN APPROX 2-3IN TEAR TO THE RIGHT PERIANAL AREA, BELOW ANUS WITH PROTRUSION OF LARGE CLOT WITH SMALL AMT OF SOFT FECES AND LARGE DARK BLOOD CLOTS SURROUNDING. DR [place] AT BEDSIDE
[2016-08-18 12:41] LABS: ABSOLUTE BASOPHIL COUNT 0 /CUMM (0.0-0.2); ABSOLUTE EOSINOPHIL COUNT 0.2 /CUMM (0.0-0.7); ABSOLUTE GRANULOCYTE CT 17.9 /CUMM (1.4-6.5); ABSOLUTE LYMPH COUNT 1.8 /CUMM (1.2-3.4); ABSOLUTE MONOCYTE COUNT 1.7 /CUMM (0.10-0.60); BASOPHIL % 0.1 % (0.0-2.0); EOSINOPHIL % 1.1 % (0-5); GRANULOCYTE % 82.8 % (42.2-75.2); MEAN CORPUSCULAR HGB 27.6 PG (27.0-31.0); MEAN CORPUSCULAR HGB CONC 33.2 G/DL (33.0-37.0); MEAN CORPUSCULAR VOLUME 83.2 FL (80.0-94.0); MEAN PLATELET VOLUME 7.2 FL (7.4-10.4); PLATELET COUNT 498 /CUMM (130-400); RED BLOOD CELL CT 3.37 /CUMM (4.70-6.10); WHITE BLOOD CELL COUNT 21.6 /CUMM (4.8-10.8)
--- NOTE | 2016-08-18 12:54 | ED GI/GU/ABDOMINAL COMPLAINT ---
History of Present Illness General Chief Complaint: General Adult Stated Complaint: BIBA ?PERIANAL ABCESS Source: patient, old records, EMS Exam Limitations: no limitations Vital Signs & Intake/Output Vital Signs & Intake/Output Vital Signs Date Time Temp Pulse Resp B/P B/P Pulse O2 O2 Flow FiO2 Mean Ox Delivery Rate 08/18 2006 100.7 87 18 122/59 98 Room Air 08/18 1927 100.5 08/18 1907 100.5 88 16 118/56 99 Room Air 08/18 1800 90 18 102/56 98 Room Air 08/18 1557 101.3 95 16 105/57 97 Room Air 08/18 1518 102.2 100 16 134/78 95 Room Air 08/18 1450 101.7 08/18 1415 101.7 98 16 132/65 97 Room Air 08/18 1212 99 Room Air 08/18 1146 98.5 96 18 149/76 99 Room Air Allergies Coded Allergies: cephalexin (From KEFLEX) (Intermediate, HIVES 04/29/16) adhesive (Mild, IRRITATION 04/29/16) Triage Note: BIBA FROM [facility] FOR EVAL OF ? PERIANAL ABSCESS VS HEMATOMA EVAL'ED BY CLIENT INSIGHTS CONSULTANT AT [facility]. PER STAFF, WOUND STARTED APPROX 08/14/16 AND PAIN HAS SINCE WORSENED AND PT IS REQUESTING AN EVALUATION. HE HAS A SCHEDULED APPT TODAY WITH DR STEEL TODAY AT 2PM FOR REEVAL OF RIGHT BKA SECONDARY TO DIABETIC COMPLICATIONS. TEMP 99.3 AT [facility] AND 98.5 ON ARRIVAL. Triage Nurses Notes Reviewed? yes HPI: 46 yo M PMH HTN, HLD, DM presenting with rectal mass, fevers, Urinary Sx. Patient noted to have perirectal mass starting 7-8 days ago, initially thought to be developing pressure ulcer, today developed worsening pain mass site, noted to have defect in the rectal mucosa, concern for pararectal abscess, sent to ED. Patient endorses malaise, diffuse weakness, fatigue, tactile fevers, and chills. Some urinary symptoms with increased urgency, patient feels he needs to void but cannot, last urine output was this morning, denies recent dysuria or hematuria, recently finished antibiotics 2 days ago for UTI at [facility]. Patient is one month status post right lower extremity BKA, has chronic wound at stump site , ongoing drainage and pain at stump site. Some shortness of breath. Denies chest pain, abdominal pain, N/V/D/C, headache or focal neurologic Sx. (FREDDY PERKINS,WALDEMAR) Reconcile Medications Amlodipine Besylate 5 MG TABLET 1 TAB PO DAILY HTN (Reported) Aspirin (Ecotrin*) 81 MG TABLET.DR 1 TAB PO DAILY HEART/BLOOD (Reported) Bisacodyl (Dulcolax) 10 MG SUPP.RECT 1 SUP RC DAILY PRN CONSTIPATION ( Reported) Escitalopram Oxalate (Lexapro) 10 MG TABLET 1 TAB PO DAILY MENTAL HEALTH ( Reported) Ferrous Sulfate (Slow Fe) 142 MG (45 MG IRON) TABLET.ER 1 TAB PO DAILY SUPPLEMENT Gabapentin 100 MG CAPSULE 100 MG PO Q12P PRN ANXIETY Glucagon,Human Recombinant (Glucagon Emergency Kit) 1 MG KIT 1 MG IM AD PRN HYPOGLYCEMIA (Reported) Insulin Detemir (Levemir Flextouch) 100 UNIT/ML (3 ML) INSULN.PEN 34 UNITS SC Q12H DM (Reported) Lactobacillus Acidophilus (Acidophilus) 1 EACH CAPSULE 1 CAP PO DAILY PROBIOTIC (Reported) Lisinopril 40 MG TABLET 1 TAB PO DAILY HTN (Reported) Lovastatin 20 MG TABLET 1 TAB PO DAILY cholesterol (Reported) Magnesium Hydroxide (Milk Of Magnesia) 400 MG/5 ML ORAL.SUSP 30 ML PO Q3D PRN CONSTIPATION (Reported) Melatonin (Unknown Strength) TABLET 5 MG PO QPM SLEEP (Reported) Metformin HCl 500 MG TABLET 1 TAB PO BID DM II (Reported) Na Phos,M-B/Na Phos,Di-Ba (Fleet Enema) 19 GRAM-7 GRAM/118 ML ENEMA 1 E RC DAILY PRN CONSTIPATION (Reported) Naloxone HCl (Narcan) 4 MG/ACTUATION SPRAY 4 MG CHANCE AD PRN OPIOID INDUCED RESP. DEPRESSIO (Reported) Sennosides (Senna) 8.6 MG TABLET 2 TAB PO DAILY PRN CONSTIPATION (Reported) (RUBÉN PERKINS,DENNIS) Past History Travel History Traveled to [place] past 21 day No Medical History Any Pertinent Medical History? none Neurological: NONE EENT: NONE Cardiovascular: hypertension, hyperlipidemia Respiratory: NONE Gastrointestinal: C. 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 MOTHER (diverticulitis). BROTHER (diabetes). Relation not specified for: FH: diabetes mellitus Hx Contributory? Yes (WALDEMAR HAYES MD) Review of Systems Review of Systems Constitutional: Reports: chills, fever, malaise, weakness. EENTM: Reports: no symptoms. Respiratory: Reports: short of breath. Denies: cough, orthopnea, sputum production, wheezing. Cardiovascular: Denies: chest pain, palpitations, peripheral edema. GI: Reports: bloody stool. Denies: abdominal pain, constipation, diarrhea, vomiting. Genitourinary: Reports: see HPI, urgency. Denies: dysuria. Musculoskeletal: Reports: no symptoms. Skin: Reports: no symptoms. Neurological/Psychological: Reports: no symptoms. Hematologic/Endocrine: Reports: no symptoms. Immunologic/Allergic: Reports: no symptoms. All Other Systems: Reviewed and Negative (WALDEMAR HAYES MD) Physical Exam Physical Exam General Appearance: well developed/nourished, no apparent distress, alert, awake Head: atraumatic, normal appearance Eyes: Bilateral: PERRL, EOMI. Ears, Nose, Throat, Mouth: moist mucous membrane Neck: normal inspection, full range of motion Cardiovascular: regular rate/rhythm, normal peripheral pulses Gastrointestinal: normal bowel sounds, soft, non-tender Rectal: See Below Male Genitals: normal genitalia Comments: Abdomen: Soft and non-TTP throughout Rectal: 3-4 cm defect in right rectal mucosa with mild bleeding and protrusion of stool through defect, digital exam deferred Right Lower Extremity: Stump site with dressing in place, small defect to right lateral wound with packing and mild purulent drainage Core Measures ACS in differential dx? No Severe Sepsis Present: No Septic Shock Present: No (WALDEMAR HAYES MD) Progress Differential Diagnosis: AAA, AMI, appendicitis, biliary colic, bowel obstruction , colon cancer, cholecystitis, diverticulitis, epididymitis, esophageal varices, gastritis, hepatitis, hernia, hemorrhoids, ischemic bowel, inflamm bowel dis, Belia-Chano tear, orchitis, pancreatitis, prostatitis, peptic ulcer, PUD/GERD, perforated viscous, pyelonephritis, SBO, STD, testicular torsion, ureterolithiasis, urinary retention, urethritis, UTI/pyelo Plan of Care: Orders Procedure Date/time Status Nothing by Mouth 08/19 B Active CBC WITHOUT DIFFERENTIAL 08/19 0600 Active BASIC ELECTROLYTES PLUS BUN&CR 08/19 06 Active Pathway - chart 08/18 2157 Active PT Evaluate & Treat 08/18 214 Active Pathway - chart 08/18 214 Active House Staff 08/18 214 Active LACTIC ACID 08/18 210 Active Vital Signs 08/18 204 Complete Teach/Educate 08/18 2040 Active Pain Treatment and Response 08/18 2040 Active Nutritional Intake, Monitor 08/18 2040 Active Isolation 08/18 204 Active Intake & Output 08/18 204 Complete Patient Care Conference 08/18 2040 Active Activity/Ambulation 08/18 204 Active BLOOD CULTURE 08/18 2030 Active ED Holding Orders 08/18 1929 Active Vital Signs 08/18 1929 Active Code Status 08/18 1929 Active Patient Data 08/18 1849 Active Hassan, Insertion/Removal/Asses 08/18 1808 Active CULTURE,URINE 08/18 1808 Active Admit to inpatient 08/18 1754 Active HEPATIC FUNCTION PANEL 08/18 1220 Complete CBC WITHOUT DIFFERENTIAL 08/18 1220 Complete BASIC METABOLIC PANEL 08/18 1220 Complete FingerStick- Glucose 08/18 1216 Complete Intake & Output 08/18 1211 Active Wound Care/Dressing 08/18 UNK Active VTE Mechanical Prophylaxis 08/18 UNK Active FingerStick- Glucose 08/18 UNK Active Current Medications Sig/Angela Start time Last Medication Dose Stop Time Status Admin Atorvastatin Calcium 5 MG 1700 08/19 1700 UNVr (Lipitor) Amlodipine Besylate 5 MG DAILY 08/19 1000 UNVr (Norvasc) Aspirin Buffered 81 MG DAILY 08/19 1000 UNVr (Ecotrin) Escitalopram Oxalate 10 MG DAILY 08/19 1000 UNVr (Lexapro) Lactobacillus 1 CAP DAILY 08/19 1000 AC Acidophilus (Probiotic) Lisinopril 40 MG DAILY 08/19 1000 AC (Prinivil) Senna/Docusate Sodium 2 TAB DAILY 08/19 1000 AC (Senokot S) Metronidazole 500 MG IQ8 08/19 0000 UNVr (Flagyl) N/A 1 UNIT (No Carrier) Insulin Human Regular 0 Q6 08/18 2359 AC (NovoLIN R) Acetaminophen 650 MG Q6P PRN 08/18 220 UNVr (Tylenol) Ciprofloxacin 400 MG Q12 08/18 220 UNVr (Ciprofloxacin) Dextrose/Water 200 ML (D5W) Heparin Sodium 5,000 UNIT Q8 08/18 220 AC (Porcine) Ibuprofen 600 MG Q6P PRN 08/18 220 AC (Motrin) Insulin Detemir 34 UNITS BID 08/18 220 AC (Levemir) Melatonin 5 MG AT BEDTIME 08/18 2199 AC (Melatonin) Morphine Sulfate 2 MG Q4P PRN 08/18 2199 AC (Morphine) Magnesium Hydroxide 30 ML Q3D PRN 08/18 214 AC (Milk Of Magnesia) Laboratory Tests 08/18/16 1230: Anion Gap 13, Estimated GFR > 60, BUN/Creatinine Ratio 22.0, Glucose 246 H, Calcium 9.2, Total Bilirubin 0.3, Direct Bilirubin 0.3, AST 11 L, ALT 26, Alkaline Phosphatase 88, Total Protein 7.0, Albumin 3.0 L, CBC w Diff MAN DIFF ORDERED, RBC 3.37 L, MCV 83.2, MCH 27.6, RDW 16.0 H, MPV 7.2 L, Gran % 82.8 H, Lymphocytes % 8.1 L, Monocytes % 7.9, Eosinophils % 1.1, Basophils % 0.1, Absolute Granulocytes 17.9 H, Segmented Neutrophils 83 H, Band Neutrophils 1, Absolute Lymphocytes 1.8, Lymphocytes 7 L, Monocytes 7, Absolute Monocytes 1.7 H, Eosinophils 1, Absolute Eosinophils 0.2, Basophils 1, Absolute Basophils 0, Platelet Estimate VERIFIED BY SMEAR, Normocytic RBCs VERIFIED, Normochromic RBCs VERIFIED, PUBS MCHC 33.2 Microbiology 08/18 2029 BLOOD: Blood Culture - ORD 08/18 2029 BLOOD: Blood Culture - ORD 08/19 1855 URINE ROUT: Urine Culture - RECD Physician MDM: 46 yo M PMH HTN, HLD, DM presenting with sectal mass, fevers, Urinary Sx. HR 100s, febrile, BP stable, remainder of exam as above. DDx Sepsis (source: UTI, pyelonephritis, PNA, perirectal abscess, RLE stump site infection , osteomyelitis), perirectal abscess, perirectal fistula, nephrolithiasis, BPH. 2L NS started, ciprofloxacin, flagyl for possible perirectal/abdominal infection , vancomycin for possible stump site skin infection. CBC with leukocytosis to 21.6, anemia around baseline at 9.1. CMP with hyperglycemia, not suggesstive of DKA. CXR without focal consolidation or airspace disease. CT A/P with possible perirectal abscess, consulted Dr. Arauz, requested admission to medicine given patients co-morbidities, urinary Sx, and septic presentation, surgical PA paged for evaluation in ED. CT A/P with left hydronephrosis with perinephric stranding , patient unable to void durin ED stay, bedside U/S with distended bladder, hassan placed, UA/UCx sent. Admit to hospitalist for further evaluation and management. (FREDDY PERKINS,WALDEMAR) Initial ED EKG: sinus tachycardia (WALDEMAR HAYES MD) Departure Departure Disposition: STILL A PATIENT Condition: Stable Clinical Impression Primary Impression: Sepsis Secondary Impressions: Hydronephrosis, Rectal fistula Referrals: SANDIE NEELY MD (PCP/Family) Departure Forms: Customer Survey General Discharge Information Admission Note Spoke With: JENNA ROCA MD Documentation of Exam: Documentation of any treatments & extenuating circumstances including Concerns Regarding Discharge (functional status, medication knowledge or non-compliance, living conditions, etc.) that warrant an admission rather than observation: [ Patient presents with sepsis physiology, rectal mass/mucosal defect, hydronephrosis and urinary tract obstruction, he requires admission for surgical consultation and further management of his perirectal fistula, he requires admission for IV antibiotics, IV fluids, telemetry monitoring for sepsis physiology, he requires admission for further management of urinary tract obstruction with resulting hydronephrosis with a Hassan catheter placement and possible urology consult, if discharged the patient has a high probability of progression of his infection with worsening sepsis physiology, possibly hypotension, severe morbidity, and , if discharge without further management of his pararectal fistula the patient has significant risk of worsening of the mucosal defect in resulting infection, if discharged without further management of his urinary tract obstruction resulting 100 process the patient is a high risk of being unable to urinate independently with resulting progression of his hydronephrosis and renal damage] (FREDDY PERKINS,WALDEMAR) Resident Co-Sign Statement Statement: ED Attending supervision documentation- [X] I saw and evaluated the patient. I have also reviewed all the pertinent lab results and diagnostic results. I agree with the findings and the plan of care as documented in the Resident's documentation. [X] I have reviewed the ED Record and agree with the Resident's documentation. [] Additions or exceptions (if any) to the Resident's note and plan are summarized below: [] (RUBÉN PERKINS,DENNIS)
--- NOTE | 2016-08-18 13:30 | NUR ---
[facility] NOTIFIED TO LET DR STEEL KNOW OF PATIENT'S LOCATION IN ED, HE HAS AN APPT AT 2PM
--- NOTE | 2016-08-18 13:45 | NUR ---
PLAN FOR PROPHYLACTIC ANTIBIOTICS WITHOUT BLOOD CULTURES PER DR LEIVA
--- NOTE | 2016-08-18 13:48 | NUR ---
PT AT CT
--- NOTE | 2016-08-18 14:10 | CT SCAN REPORT ---
EXAMINATION: CT ABDOMEN AND PELVIS WITH CONTRAST CLINICAL INFORMATION: Defect and rectal mucosa with protruding stool. Pain. COMPARISON: 07/28/2016 TECHNIQUE: Multidetector volumetric imaging was performed of the abdomen and pelvis before and after the IV administration of 98 mL of Optiray 320 intravenous contrast. Sagittal and coronal reformatted images were obtained on the technologist's workstation. DLP: 1615 mGy-cm FINDINGS: LUNG BASES: Minimal left basilar linear atelectasis. The visualized cardiac structures are unremarkable. LIVER, GALLBLADDER, AND BILIARY TREE: The liver is normal in size, shape, and attenuation. No focal hepatic lesion or biliary ductal dilatation is present. The gallbladder is unremarkable with no evidence of radiopaque gallstones, gallbladder wall thickening, or obvious pericholecystic inflammatory changes. PANCREAS: Unremarkable. SPLEEN: Unremarkable. ADRENAL GLANDS: Unremarkable. KIDNEYS AND URETERS: The kidneys are normal in size, shape, and attenuation. There is mild left hydronephrosis. Mild dilatation of the left ureter. Bilateral mild perinephric stranding is similar to prior. Mild stranding along the course of the ureter is increased. No calculi. BLADDER: Unremarkable. GASTROINTESTINAL TRACT: The stomach and small bowel are unremarkable. No dilated loops of bowel or evidence of obstruction. There is no colonic wall thickening or inflammatory change. No free air or free fluid. ABDOMINAL WALL: No significant hernia seen. There is an abnormality along the left gluteal cleft with heterogeneous material internally. This is nonspecific. This may represent packing associated with a perianal fistula. The appearance is not typical for stool components, although that is not excluded. This area measures 6.2 x 3.5 x 5.6 cm. It extends to the posterior skin surface from the perianal region. LYMPH NODES: Normal. VASCULAR: Unremarkable. PELVIC VISCERA: The prostate and seminal vesicles are unremarkable. OSSEOUS STRUCTURES: Bilateral pars defects at L4 with grade 1 anterolisthesis of L4 on L5. Degenerative changes of the spine and hips. IMPRESSION: 1. Abnormal appearance along the left gluteal cleft is possibly associated with a left perianal fistula extending to the posterior skin surface. The internal material could represent packing. Alternatively if not packing, this may represent stool components. Unremarkable appearance of the bowel. 2. Increased left hydronephrosis. Increased periureteral stranding. No calculi. Similar appearance of bilateral perinephric stranding.
--- NOTE | 2016-08-18 14:30 | NUR ---
NOTIFIED OF TEMP. CIPRO GTT RUNNING OVER ONE HOUR. CALL [place] IN REACH
--- NOTE | 2016-08-18 14:50 | NUR ---
MEDICATED WITH TYLENOL PER eMAR
--- NOTE | 2016-08-18 15:55 | NUR ---
FLAGYL GTT AT 100ML/HR PER ORDER. TEMP IMPROVING 101.3 AT THIS TIME. PT OFFERS NO COMPLAINTS, FEELS BETTER SINCE FLUID AND TYLENOL ADMINISTRATION. SKIN WARM. CALL [place] IN REACH
[2016-08-18] MEDS ORDERED: ASPIRIN EC81 M1 PO (16:44)
[2016-08-18] MEDS ORDERED: LEXAPRO10 M1 PO (16:45)
[2016-08-18] MEDS ORDERED: NARCAN4 MG NAS (16:46)
[2016-08-18] MEDS ORDERED: MELATONIN3 M4 PO (16:50)
[2016-08-18] MEDS ORDERED: GLUCAGON EMERGEN1 M1 IM (16:51)
[2016-08-18] MEDS ORDERED: ACIDOPHILUS1 EACH PO (16:56)
[2016-08-18] MEDS ORDERED: DULCOLAX10 M1 RC (16:57)
[2016-08-18] MEDS ORDERED: MILK OF MA400 MG/52 PO (16:58)
[2016-08-18] MEDS ORDERED: FLEET ENEMA133 ML RC (16:58)
[2016-08-18] MEDS ORDERED: SENNA8.6 M3 PO (16:59)
--- NOTE | 2016-08-18 19:05 | NUR ---
VANCO GTT RUNNING AT 250ML/HR PER ORDER. PT C/O SEVERE PAIN AND REQUESTING PAIN MEDICINE. NOTIFIED. PT ON ENTERIC CONTACT PRECAUTIONS FOR CDIF LAST YEAR
--- NOTE | 2016-08-18 19:26 | NUR ---
ASSUMED CARE OF PT PER LEONARD CARNEY. PT MEDICATED WITH MORPHINE PER EMAR FOR 10/15 PAIN. VSS. WILL CTM.
--- NOTE | 2016-08-18 19:40 | Cons- General Surgery ---
General Information and HPI Consulting Request Date of Consult: 08/18/16 Requested By: Dr Landeros Reason for Consult: Rectal fistula Source of Information: patient, old records Exam Limitations: no limitations History of Present Illness: 46-year-old male with history significant for poorly controlled diabetes, nonhealing ulcer right lower extremity with osteomyelitis status post right below-knee amputation approximately [address] Harrison, presents to the emergency department with fever and rectal pain. 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 Patient is febrile and has been having pain in the rectal area over the last few days, he thought it was hemorrhoids which she has had in the past. He is also been having intermittent low-grade temperatures for the last several weeks since his below-knee amputation. He is well-known to the surgical service for his amputation one month ago and postoperatively he had a significant leukocytosis as well and low-grade fevers without a definitive source of infection. He's never had any rectal problems in the past. He had a split-thickness skin graft in June in which she states he was bedridden for approximately 2 weeks after this. After his below-knee amputation, patient had a difficult time getting up and out of bed and states that he stood for proximally 1 minute for the first time yesterday while in rehabilitation. For the vast majority of his postoperative course she has been lying flat on his back in bed. He has no abdominal pain, no vomiting, no chest pain or previous rectal surgery. Allergies/Medications Allergies: Coded Allergies: cephalexin (From KEFLEX) (Intermediate, HIVES 04/29/16) adhesive (Mild, IRRITATION 04/29/16) Home Med List: Amlodipine Besylate 5 MG TABLET 1 TAB PO DAILY HTN (Reported) Aspirin (Ecotrin*) 81 MG TABLET.DR 1 TAB PO DAILY HEART/BLOOD (Reported) Bisacodyl (Dulcolax) 10 MG SUPP.RECT 1 SUP RC DAILY PRN CONSTIPATION ( Reported) Escitalopram Oxalate (Lexapro) 10 MG TABLET 1 TAB PO DAILY MENTAL HEALTH ( Reported) Ferrous Sulfate (Slow Fe) 142 MG (45 MG IRON) TABLET.ER 1 TAB PO DAILY SUPPLEMENT Gabapentin 100 MG CAPSULE 100 MG PO Q12P PRN ANXIETY Glucagon,Human Recombinant (Glucagon Emergency Kit) 1 MG KIT 1 MG IM AD PRN HYPOGLYCEMIA (Reported) Insulin Detemir (Levemir Flextouch) 100 UNIT/ML (3 ML) INSULN.PEN 34 UNITS SC Q12H DM (Reported) Lactobacillus Acidophilus (Acidophilus) 1 EACH CAPSULE 1 CAP PO DAILY PROBIOTIC (Reported) Lisinopril 40 MG TABLET 1 TAB PO DAILY HTN (Reported) Lovastatin 20 MG TABLET 1 TAB PO DAILY cholesterol (Reported) Magnesium Hydroxide (Milk Of Magnesia) 400 MG/5 ML ORAL.SUSP 30 ML PO Q3D PRN CONSTIPATION (Reported) Melatonin (Unknown Strength) TABLET (Unknown Dose) PO QPM SLEEP (Reported) Metformin HCl 500 MG TABLET 1 TAB PO BID DM II (Reported) Na Phos,M-B/Na Phos,Di-Ba (Fleet Enema) 19 GRAM-7 GRAM/118 ML ENEMA 1 E RC DAILY PRN CONSTIPATION (Reported) Naloxone HCl (Narcan) 4 MG/ACTUATION SPRAY 4 MG CHANCE AD PRN OPIOID INDUCED RESP. DEPRESSIO (Reported) Sennosides (Senna) 8.6 MG TABLET 2 TAB PO DAILY PRN CONSTIPATION (Reported) Past History Medical History Neurological: NONE EENT: NONE Cardiovascular: hypertension, hyperlipidemia Respiratory: NONE Gastrointestinal: C. 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 MOTHER (diverticulitis). BROTHER (diabetes). Relation not specified for: FH: diabetes mellitus Psychosocial History Services at Home: None Functional Ability ADLs Independent: dressing, eating, toileting, bathing. Assessment/Plan Consult Acknowledgment - Thank you for your consult request.
--- NOTE | 2016-08-18 19:47 | Cons- General Surgery ---
VARSHA CURRIE PA-C 08/18/161942: General Information and HPI Consulting Request Date of Consult: 08/18/16 Requested By: JENNA ROCA MD Reason for Consult: tx of perirectal fistula Source of Information: patient, old records Exam Limitations: no limitations History of Present Illness: 46-year-old male with history significant for poorly controlled diabetes, nonhealing ulcer right lower extremity with osteomyelitis status post right below-knee amputation approximately [address] Harrison, presents to the emergency department with fever and rectal pain. 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 Patient is febrile and has been having pain in the rectal area over the last few days, he thought it was hemorrhoids which she has had in the past. He is also been having intermittent low-grade temperatures for the last several weeks since his below-knee amputation. He is well-known to the surgical service for his amputation one month ago and postoperatively he had a significant leukocytosis as well and low-grade fevers without a definitive source of infection. He's never had any rectal problems in the past. He had a split-thickness skin graft in June in which she states he was bedridden for approximately 2 weeks after this. After his below-knee amputation, patient had a difficult time getting up and out of bed and states that he stood for proximally 1 minute for the first time yesterday while in rehabilitation. For the vast majority of his postoperative course she has been lying flat on his back in bed. He has no abdominal pain, no vomiting, no chest pain or previous rectal surgery. Allergies/Medications Allergies: Coded Allergies: cephalexin (From KEFLEX) (Intermediate, HIVES 04/29/16) adhesive (Mild, IRRITATION 04/29/16) Past History Medical History Neurological: NONE EENT: NONE Cardiovascular: hypertension, hyperlipidemia Respiratory: NONE Gastrointestinal: C. 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 MOTHER (diverticulitis). BROTHER (diabetes). Relation not specified for: FH: diabetes mellitus Psychosocial History Services at Home: None Functional Ability ADLs Independent: dressing, eating, toileting, bathing. Review of Systems Review of Systems: Review of systems: See HPI, all other systems negative. Constitutional: Positive fever and chills HEENT: No visual changes no sore throat no congestion Cardiovascular: No chest pain ,palpitation , orthopnea or ankle swelling Skin: No jaundice no rashes Respiratory: No dyspnea cough sputum or hemoptysis GI: No nausea no vomiting : No dysuria no hematuria Musclulo skeletal: Rectal pain, right lower extremity pain Neurologic: No numbness no confusion Psych: No stress anxiety or depression,. Heme/endocrine: No bruising no bleeding no polyuria or polydipsia Immunology: No splenectomy or history of AIDS Exam & Diagnostic Data Vital Signs and I&O Vital Signs Date Time Temp Pulse Resp B/P B/P Pulse O2 O2 Flow FiO2 Mean Ox Delivery Rate 08/18 1927 100.5 08/18 1907 100.5 88 16 118/56 99 Room Air 08/18 1800 90 18 102/56 98 Room Air 08/18 1557 101.3 95 16 105/57 97 Room Air 08/18 1518 102.2 100 16 134/78 95 Room Air 08/18 1450 101.7 08/18 1415 101.7 98 16 132/65 97 Room Air 08/18 1212 99 Room Air 08/18 1146 98.5 96 18 149/76 99 Room Air Intake & Output 08/18 1600 08/18 0800 08/18 0000 08/17 1600 08/17 0800 08/17 0000 Intake Total Output Total Balance Patient 256 lb Weight Physical Exam: Well-developed well-nourished no apparent distress. HEENT: Atraumatic, extraocular motion intact Neck: Supple, no lymphadenopathy Respiratory: No respiratory distress Abdomen: Soft, nontender nondistended Extremities: Right lower extremity below-knee amputation, small opening lateral incision line, no surrounding erythema or induration. Neuro: Alert and oriented x3 Psych: Mood affect normal, normal memory normal judgment. Skin: Warm and dry, no rash on exposed skin perirectal/rectal area: Circumferential full-thickness ulceration noted to the left side gluteal cleft approximately 4 x 6 cm with surrounding erythema. There is stool noted coming from this opening as well as dark thin purulent and bloody discharge that is easily expressed. There is mild induration. There is a small amount of necrotic tissue noted in the wound. There is no gas or crepitus. The rectum appears normal Last 24 Hours of Labs: Laboratory Tests 08/18 1230 Chemistry Sodium (137 - 145 mmol/L) 134 L Potassium (3.5 - 5.1 mmol/L) 4.0 Chloride (98 - 107 mmol/L) 97 L Carbon Dioxide (22 - 30 mmol/L) 23 Anion Gap (5 - 16) 13 BUN (9 - 20 mg/dL) 11 Creatinine (0.7 - 1.2 mg/dL) 0.5 L Estimated GFR (>60 ml/min) > 60 BUN/Creatinine Ratio (7 - 25 %) 22.0 Glucose (65 - 99 mg/dL) 246 H Calcium (8.4 - 10.2 mg/dL) 9.2 Total Bilirubin (0.2 - 1.3 mg/dL) 0.3 Direct Bilirubin (< 0.4 mg/dL) 0.3 AST (17 - 59 U/L) 11 L ALT (21 - 72 U/L) 26 Alkaline Phosphatase (< 127 U/L) 88 Total Protein (6.3 - 8.2 g/dL) 7.0 Albumin (3.5 - 5.0 g/dL) 3.0 L Hematology CBC w Diff MAN DIFF ORDERED WBC (4.8 - 10.8 /CUMM) 21.6 H RBC (4.70 - 6.10 /CUMM) 3.37 L Hgb (14.0 - 18.0 G/DL) 9.3 L Hct (42 - 52 %) 28.0 L MCV (80.0 - 94.0 FL) 83.2 MCH (27.0 - 31.0 PG) 27.6 RDW (11.5 - 14.5 %) 16.0 H Plt Count (130 - 400 /CUMM) 498 H MPV (7.4 - 10.4 FL) 7.2 L Gran % (42.2 - 75.2 %) 82.8 H Lymphocytes % (20.5 - 51.1 %) 8.1 L Monocytes % (1.7 - 9.3 %) 7.9 Eosinophils % (0 - 5 %) 1.1 Basophils % (0.0 - 2.0 %) 0.1 Absolute Granulocytes (1.4 - 6.5 /CUMM) 17.9 H Segmented Neutrophils (42.2 - 75.2 %) 83 H Band Neutrophils (0.0 - 5.0 %) 1 Absolute Lymphocytes (1.2 - 3.4 /CUMM) 1.8 Lymphocytes (20.5 - 51.1 %) 7 L Monocytes (1.7 - 9.3 %) 7 Absolute Monocytes (0.10 - 0.60 /CUMM) 1.7 H Eosinophils (0 - 5.0 %) 1 Absolute Eosinophils (0.0 - 0.7 /CUMM) 0.2 Basophils (0.0 - 2.0 %) 1 Absolute Basophils (0.0 - 0.2 /CUMM) 0 Platelet Estimate (ADEQUATE) VERIFIED BY SMEAR Normocytic RBCs VERIFIED Normochromic RBCs VERIFIED PUBS MCHC (33.0 - 37.0 G/DL) 33.2 Imaging Results: PATIENT: ALF JUAREZ PRESENT AGE: 46 PATIENT ACCOUNT NO: [id number] : 68 LOCATION: [facility] ORDERING PHYSICIAN: WALDEMAR HAYES MD SERVICE DATE: 08/18/16 EXAM TYPE: CAT - CT ABD & PELVIS W IV CONTRAST EXAMINATION: CT ABDOMEN AND PELVIS WITH CONTRAST CLINICAL INFORMATION: Defect and rectal mucosa with protruding stool. Pain. COMPARISON: 07/28/2016 TECHNIQUE: Multidetector volumetric imaging was performed of the abdomen and pelvis before and after the IV administration of 98 mL of Optiray 320 intravenous contrast. Sagittal and coronal reformatted images were obtained on the technologist's workstation. DLP: 1615 mGy-cm FINDINGS: LUNG BASES: Minimal left basilar linear atelectasis. The visualized cardiac structures are unremarkable. LIVER, GALLBLADDER, AND BILIARY TREE: The liver is normal in size, shape, and attenuation. No focal hepatic lesion or biliary ductal dilatation is present. The gallbladder is unremarkable with no evidence of radiopaque gallstones, gallbladder wall thickening, or obvious pericholecystic inflammatory changes. PANCREAS: Unremarkable. SPLEEN: Unremarkable. ADRENAL GLANDS: Unremarkable. KIDNEYS AND URETERS: The kidneys are normal in size, shape, and attenuation. There is mild left hydronephrosis. Mild dilatation of the left ureter. Bilateral mild perinephric stranding is similar to prior. Mild stranding along the course of the ureter is increased. No calculi. BLADDER: Unremarkable. GASTROINTESTINAL TRACT: The stomach and small bowel are unremarkable. No dilated loops of bowel or evidence of obstruction. There is no colonic wall thickening or inflammatory change. No free air or free fluid. ABDOMINAL WALL: No significant hernia seen. There is an abnormality along the left gluteal cleft with heterogeneous material internally. This is nonspecific. This may represent packing associated with a perianal fistula. The appearance is not typical for stool components, although that is not excluded. This area measures 6.2 x 3.5 x 5.6 cm. It extends to the posterior skin surface from the perianal region. LYMPH NODES: Normal. VASCULAR: Unremarkable. PELVIC VISCERA: The prostate and seminal vesicles are unremarkable. OSSEOUS STRUCTURES: Bilateral pars defects at L4 with grade 1 anterolisthesis of L4 on L5. Degenerative changes of the spine and hips. IMPRESSION: 1. Abnormal appearance along the left gluteal cleft is possibly associated with a left perianal fistula extending to the posterior skin surface. The internal material could represent packing. Alternatively if not packing, this may represent stool components. Unremarkable appearance of the bowel. 2. Increased left hydronephrosis. Increased periureteral stranding. No calculi. Similar appearance of bilateral perinephric stranding. 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 Alf Arauz DO from colorectal surgery was consulted and plan was discussed with him. Broad spectrum antibiotics initially. No indication for immediate surgical debridement and exploration however surgery will likely be required in the next few days, as early as tomorrow, for possible debridement or drainage of the region. Further timing of this will be dependent upon evaluation tomorrow morning by Alf Arauz DO and patient's clinical picture over the next 12-24 hours. Recommend nothing by mouth after midnight for possible surgery as early as tomorrow. Problem List: 1. 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 Abscess, gluteal, left Consult Acknowledgment - Thank you for your consult request. ALF ARAUZ DO 08/19/16 0759: General Information and HPI Allergies/Medications Home Med List: Amlodipine Besylate 5 MG TABLET 1 TAB PO DAILY HTN (Reported) Aspirin (Ecotrin*) 81 MG TABLET.DR 1 TAB PO DAILY HEART/BLOOD (Reported) Bisacodyl (Dulcolax) 10 MG SUPP.RECT 1 SUP RC DAILY PRN CONSTIPATION ( Reported) Escitalopram Oxalate (Lexapro) 10 MG TABLET 1 TAB PO DAILY MENTAL HEALTH ( Reported) Ferrous Sulfate (Slow Fe) 142 MG (45 MG IRON) TABLET.ER 1 TAB PO DAILY SUPPLEMENT Gabapentin 100 MG CAPSULE 100 MG PO Q12P PRN ANXIETY Glucagon,Human Recombinant (Glucagon Emergency Kit) 1 MG KIT 1 MG IM AD PRN HYPOGLYCEMIA (Reported) Insulin Detemir (Levemir Flextouch) 100 UNIT/ML (3 ML) INSULN.PEN 34 UNITS SC Q12H DM (Reported) Lactobacillus Acidophilus (Acidophilus) 1 EACH CAPSULE 1 CAP PO DAILY PROBIOTIC (Reported) Lisinopril 40 MG TABLET 1 TAB PO DAILY HTN (Reported) Lovastatin 20 MG TABLET 1 TAB PO DAILY cholesterol (Reported) Magnesium Hydroxide (Milk Of Magnesia) 400 MG/5 ML ORAL.SUSP 30 ML PO Q3D PRN CONSTIPATION (Reported) Melatonin (Unknown Strength) TABLET 5 MG PO QPM SLEEP (Reported) Metformin HCl 500 MG TABLET 1 TAB PO BID DM II (Reported) Na Phos,M-B/Na Phos,Di-Ba (Fleet Enema) 19 GRAM-7 GRAM/118 ML ENEMA 1 E RC DAILY PRN CONSTIPATION (Reported) Naloxone HCl (Narcan) 4 MG/ACTUATION SPRAY 4 MG CHANCE AD PRN OPIOID INDUCED RESP. DEPRESSIO (Reported) Sennosides (Senna) 8.6 MG TABLET 2 TAB PO DAILY PRN CONSTIPATION (Reported) Assessment/Plan Consult Acknowledgment - Thank you for your consult request. Attending MD Review Statement Attending Statement Attending Assessment/Plan: Patient discussed with PA staff in the ER Agree with PA assessment and plan Admit, IV antibiotics, likely EUA debridement this hospitalization
--- NOTE | 2016-08-18 20:18 | NUR ---
PT'S RM ASSIGNMENT 225 BED 1
--- NOTE | 2016-08-18 20:42 | NUR ---
REPORT GIVEN TO LEONARD CARDOSO.
--- NOTE | 2016-08-18 20:46 | NUR ---
TRANSPORT REQUESTED ELECTRONICALLY
--- NOTE | 2016-08-18 21:22 | History & Physical ---
GUILLERMINA PERKINS,[facility] [place]162121: General Information and HPI MD Statement: I have seen and personally examined ALF JUAREZ and documented this H&P. The patient is a 46 year old M who presented with a patient stated chief complaint of perianal abscess. Source of Information: patient, old records Exam Limitations: no limitations History of Present Illness: Mr. 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 Patient describes it as a constant throbbing pain that feels like an "incision". Pain is exacerbated by defecation. Patient has also been noting pus and blood in his stool. He has been having low-grade fevers of around 100 during this time. He reports inability to urinate since the morning of his current presentation when he last voided. He denies nausea, vomiting, palpitations, lightheadedness, dizziness, dysuria and increased urinary frequency. Patient was recently hospitalized here at [facility] for RLE ostemyelitis. He underwent R BKA and was subsequently discharged to [facility]. On exam, an erythematous papular rash is noted on his bilateral upper and lower extremities. Patient reports that the rash initially started as blisters, which later crusted. Allergies/Medications Allergies: Coded Allergies: cephalexin (From KEFLEX) (Intermediate, HIVES 04/29/16) adhesive (Mild, IRRITATION 04/29/16) Home Med list Amlodipine Besylate 5 MG TABLET 1 TAB PO DAILY HTN (Reported) Aspirin (Ecotrin*) 81 MG TABLET.DR 1 TAB PO DAILY HEART/BLOOD (Reported) Bisacodyl (Dulcolax) 10 MG SUPP.RECT 1 SUP RC DAILY PRN CONSTIPATION ( Reported) Escitalopram Oxalate (Lexapro) 10 MG TABLET 1 TAB PO DAILY MENTAL HEALTH ( Reported) Ferrous Sulfate (Slow Fe) 142 MG (45 MG IRON) TABLET.ER 1 TAB PO DAILY SUPPLEMENT Gabapentin 100 MG CAPSULE 100 MG PO Q12P PRN ANXIETY Glucagon,Human Recombinant (Glucagon Emergency Kit) 1 MG KIT 1 MG IM AD PRN HYPOGLYCEMIA (Reported) Insulin Detemir (Levemir Flextouch) 100 UNIT/ML (3 ML) INSULN.PEN 34 UNITS SC Q12H DM (Reported) Lactobacillus Acidophilus (Acidophilus) 1 EACH CAPSULE 1 CAP PO DAILY PROBIOTIC (Reported) Lisinopril 40 MG TABLET 1 TAB PO DAILY HTN (Reported) Lovastatin 20 MG TABLET 1 TAB PO DAILY cholesterol (Reported) Magnesium Hydroxide (Milk Of Magnesia) 400 MG/5 ML ORAL.SUSP 30 ML PO Q3D PRN CONSTIPATION (Reported) Melatonin (Unknown Strength) TABLET 5 MG PO QPM SLEEP (Reported) Metformin HCl 500 MG TABLET 1 TAB PO BID DM II (Reported) Na Phos,M-B/Na Phos,Di-Ba (Fleet Enema) 19 GRAM-7 GRAM/118 ML ENEMA 1 E RC DAILY PRN CONSTIPATION (Reported) Naloxone HCl (Narcan) 4 MG/ACTUATION SPRAY 4 MG CHANCE AD PRN OPIOID INDUCED RESP. DEPRESSIO (Reported) Sennosides (Senna) 8.6 MG TABLET 2 TAB PO DAILY PRN CONSTIPATION (Reported) Past History Travel History Traveled to [place] past 21 day No Medical History Neurological: NONE EENT: NONE Cardiovascular: hypertension, hyperlipidemia, PVD Respiratory: NONE Gastrointestinal: C. difficile Hepatic: NONE Renal: NONE Musculoskeletal: osteomyelitis of RLE Psychiatric: NONE Endocrine: diabetes, obesity Blood Disorders: NONE Cancer(s): NONE GLASSWARE VERIFIER/Reproductive: NONE History of MRSA: No History of VRE: No History of CDIFF: No Isolation History: Standard Surgical History Surgical History: appendectomy, I&D of posterior neck abscess, left shoulder surgery, right great toe amputation, right BKA Past Family/Social History Family History Relations & Conditions if any FATHER (coronary artery disease-status post angioplasty and stents). MOTHER (diverticulitis). BROTHER (diabetes). Relation not specified for: FH: diabetes mellitus Psychosocial History Where do you live? Home Who Do You Live With? significant other Services at Home: None Primary Language: Japanese Smoking Status: Never Smoked Functional Ability ADLs Independent: dressing, eating, toileting, bathing. Review of Systems Review of Systems Constitutional: Reports: chills, fever. EENTM: Reports: no symptoms. Cardiovascular: Reports: no symptoms. Denies: palpitations. Respiratory: Reports: no symptoms. GI: Reports: bloody stool. Denies: abdominal pain, nausea, vomiting. Genitourinary: Reports: hesitation. Denies: dysuria, frequency. Musculoskeletal: Reports: no symptoms. Skin: Reports: rash (on bilateral arms and legs). Neurological/Psychological: Reports: no symptoms. Hematologic/Endocrine: Reports: no symptoms. Immunologic/Allergic: Reports: no symptoms. All Other Systems: Reviewed and Negative Exam & Diagnostic Data Last 24 Hrs of Vital Signs/I&O Vital Signs Date Time Temp Pulse Resp B/P B/P Pulse O2 O2 Flow FiO2 Mean Ox Delivery Rate 08/19 0630 98.5 91 20 112/70 96 Room Air 08/18 2332 Room Air 08/18 2302 100.1 100 20 100/62 97 Room Air 08/18 2007 100.7 87 18 122/59 98 Room Air 08/18 1927 100.5 08/18 1907 100.5 88 16 118/56 99 Room Air 08/18 1800 90 18 102/56 98 Room Air 08/18 1557 101.3 95 16 105/57 97 Room Air 08/18 1518 102.2 100 16 134/78 95 Room Air 08/18 1450 101.7 08/18 1415 101.7 98 16 132/65 97 Room Air 08/18 1212 99 Room Air 08/18 1146 98.5 96 18 149/76 99 Room Air Intake & Output 08/19 1600 08/19 0800 08/19 0000 Intake Total 600 240 Output Total 500 1250 Balance 100 -1010 Intake, IV 600 Intake, Oral 0 240 Number 2 Bowel Movements Output, Urine 500 1250 Patient 116.12 kg Weight Weight Reported by Patient Measurement Method Physical Exam General Appearance Alert, Oriented X3, No Acute Distress Skin Erythematous Papules on Bilateral Upper and Lower Extremities HEENT Atraumatic, Mucous Membr. moist/pink Neck Supple Cardiovascular Regular Rate, Normal S1, Normal S2 Lungs Clear to Auscultation Abdomen Soft, No Tenderness, Positive Bowel Sounds Extremities No Clubbing, No Cyanosis, No Edema, S/p Right BKA Last 24 Hrs of Labs/Ramin: Laboratory Tests 08/19/16 0640: Sodium Pending, Potassium Pending, Chloride Pending, Carbon Dioxide Pending, Anion Gap Pending, BUN Pending, Creatinine Pending, BUN/Creatinine Ratio Pending , CBC w Diff Pending, WBC Pending, RBC Pending, Hgb Pending, Hct Pending, MCV Pending, MCH Pending, RDW Pending, Plt Count Pending, MPV Pending, PUBS MCHC Pending 08/18/16 2210: Lactic Acid 1.0 08/18/16 1230: Anion Gap 13, Estimated GFR > 60, BUN/Creatinine Ratio 22.0, Glucose 246 H, Calcium 9.2, Total Bilirubin 0.3, Direct Bilirubin 0.3, AST 11 L, ALT 26, Alkaline Phosphatase 88, Total Protein 7.0, Albumin 3.0 L, CBC w Diff MAN DIFF ORDERED, RBC 3.37 L, MCV 83.2, MCH 27.6, RDW 16.0 H, MPV 7.2 L, Gran % 82.8 H, Lymphocytes % 8.1 L, Monocytes % 7.9, Eosinophils % 1.1, Basophils % 0.1, Absolute Granulocytes 17.9 H, Segmented Neutrophils 83 H, Band Neutrophils 1, Absolute Lymphocytes 1.8, Lymphocytes 7 L, Monocytes 7, Absolute Monocytes 1.7 H, Eosinophils 1, Absolute Eosinophils 0.2, Basophils 1, Absolute Basophils 0, Platelet Estimate VERIFIED BY SMEAR, Normocytic RBCs VERIFIED, Normochromic RBCs VERIFIED, [facility] MCHC 33.2 Microbiology 08/19 0738 STOOL: Clostridium difficile Toxin A & B - ORD 08/18 2245 BLOOD: Blood Culture - RECD 08/18 2210 BLOOD: Blood Culture - RECD 08/18 1856 URINE ROUT: Urine Culture - RECD Diagnostic Data Other Results CT ABDOMEN/PELVIS: 1. Abnormal appearance along the left gluteal cleft is possibly associated with a left perianal fistula extending to the posterior skin surface. The internal material could represent packing. Alternatively if not packing, this may represent stool components. Unremarkable appearance of the bowel. 2. Increased left hydronephrosis. Increased periureteral stranding. No calculi. Similar appearance of bilateral perinephric stranding. Assessment/Plan Assessment: Mr. 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 #Sepsis 2/2 perirectal abscess/fistula: Met SIRS criteria for sepsis on admission with fevers (Tmax 102.2), tachycardia and leukocytosis (WBC 21.6 with 1% bands). Source is perianal abscess/fistula identified on CT Abdomen/Pelvis demonstrating a 6.2 x 3.5 x 5.6 cm perianal fistula along the left gluteal cleft. Per exam by general surgery, fistula appears infected with mild induration and small amount of necrotic tissue as well as purulent bloody discharge coming out from the ulcer. S/p 1 dose of ciprofloxacin and Flagyl in the ED. * Admit to General Medicine. * General surgery consulted. Per their evaluation, there is no indication for immediate surgical debridement and exploration, however patient will require surgery within the next few days, which could be performed as early as tomorrow. * Keep patient NPO for possible surgery tomorrow. * Gentle hydration with NS @ 75 cc/hr overnight. * Urology consult placed. Appreciate their recs. * Continue ciprofloxacin 400 mg IV Q12H and Flagyl 500 mg IV Q8H. * Check UCx and BCx. #Uncontrolled insulin-dependent T2DM: Takes metformin 500 mg PO BID and Levemir 34 units SQ BID. * Hold oral hypoglycemic agents while inpatient. * Continue [id number] Levemir 34 units SQ BID. * Accu-checks and NPO sliding scale Novolin Q6H. #HTN: * Continue [id number] amlodipine 5 mg PO daily and lisinopril 40 mg PO daily. #HLD: Takes lovastatin 20 mg PO daily. * Atorvastatin 5 mg PO daily while inpatient. #Depression: * Continue [id number] escitalopram 10 mg PO daily. Diet: NPO Pain: Tylenol 650 mg PO Q6H PRN for mild pain (scale 1-3) Motrin 600 mg PO Q6H PRN for moderate pain (scale 4-6) Morphine 2 mg IV Q4H PRN for severe pain (scale 7-10) DVT PPx: HSQ for DVT PPx CODE: FULL As Ranked By This Provider Problem List: 1. Sepsis 2. Uncontrolled diabetes mellitus 3. Depression 4. Insulin dependent type 2 diabetes mellitus 5. Hypertension 6. Perirectal abscess 7. Perirectal fistula 8. Hyperlipidemia Core Measures/Miscellaneous Acute Coronary Syndrome ACS Diagnosis: No Cerebrovascular Accident CVA/TIA Diagnosis: No Congestive Heart Failure CHF Diagnosis: No VTE (View Protocol) VTE Risk Factors: Acute medical illness, Age > 40, Immobility, paresis, Obesity No [facility] VTE prophylaxis d/t: No contraindications No VTE Pharm Prophylaxis d/t: No contraindications VTE Diagnosis: No VTE Type: NONE VTE Confirmed by (Test): NONE Sepsis (View Protocol) Severe Sepsis Present: No Septic Shock Septic Shock Present: No Miscellaneous Documentation Attending Case Discussed With: JENNA ROCA MD Primary Care Physician: SANDIE NEELY MD Patient sees these Specialists Poultry Trimmer Russ Dowd MD Level of Patient Care: General Medicine JENNA ROCA MD 08/18/16 2144: Attending MD Review Statement Attending Statement Attending MD Statement: examined this patient, discuss w/resident/PA/TITLE CLERK AUTOMOBILE, agreed w/resident/PA/TITLE CLERK [employer]OMOBILE, reviewed EMR data (avail) Attending Assessment/Plan: 46M PMH HTN, T2DM poorly controlled, diabetic neuropathy, PVD, recent RLE osteomyelitis s/p toe amputation and 6 weeks of Unsayn resenting with fever, chills, rectal pain, found to have perirectal abscess and fistula. Febrile 102, WBC 21, tachycardic, lactate pending. Patient appears ill and uncomfortable. 1. Perianal fistula 2. Left hydronephrosis 3. Sepsis 4. T2DM 5. PVD Plan - Admit to general medicine - Start Cipro and Flagyl - Blood cultures - Surgery consult - Urine culture - Urology consult - Continue home medications - IV hydration - DVT PPx - NPO after midnight for I&D of abscess ELIER NAILS 08/18/16 3378: Resident Review Statement Resident Statement: examined this patient, discussed with computer science intern, agreed with computer science intern, discussed with family, reviewed images, amended to note Other Findings: This is a 46 years old gentleman with history of poorly controlled diabetes mellitus, hypertension, anxiety, osteomyelitis of the foot status post multiple procedures without significant improvement and because of which had DKA of the right lower limb about 1 month ago presenting with one-week history of rectal pain that is constant aggravated with sitting and bowel movement. He volunteers chills but no fevers. The pain has been increasing progressively and today he could not take it anymore as the pain was very severe causing him to cry. He denies any rectal procedure recently, he has no hard stools more than usual. He has history of hemorrhoids and he thought initially was the hemorrhoids acting up but the presentation was different from his usual hemorrhoids. On presentation the patient was afebrile but however during the course of the stay in the ER temperature increased to 102.2 he was tachycardic at 96 blood pressure stable at 149/76 and is saturating well in room air Examination of the rectum was positive for a fistula about 6 x 4 x 5 cm Of note in labs the labs was leukocytosis of 21,600 granulocyte 82% without bands Assessment and plan 46 years old gentleman with uncontrolled diabetes mellitus status post right BKA about one month ago presenting with rectal pain and evidence of richard-rectal fistula for by 6 x 5 cm. He has systemic symptoms with fever up to 102.2 and because of his diabetes mellitus this patient will warrant antibiotic coverage and definitive treatment of which is incision and drainage. He has been reviewed by surgery and will go for I&D tomorrow. Perirectal fistula Diabetes mellitus Hypertension Admit patient to general medicine floor And to hydration with normal saline 75 mL per hour Start IV ciprofloxacin 400 mg twice a day and Flagyl 500 mg 3 times a day Blood culture Hypertension restart home medication lisinopril 40 and amlodipine 5 mg Diabetes mellitus patient is currently on nothing by mouth insulin sliding scale pending procedure Restart his regular sliding scale when he resumes diet Urine retention one episode [will get urology consult] Patient is full code
--- NOTE | 2016-08-18 21:30 | NUR ---
NURSING NOTE: PT ARRIVED TO 2NA VIA STRETCHER @ 0485. PT ALERT, ORIENTED, CALM, COOPERATIVE. FAMILY AT BEDSIDE. PT REPORTING PAIN 6/10 TO PERIRECTAL AREA. MAGNOLIA RECTAL ABSCESS DRAINING BLOODY DRAINAGE - SITE WARM TO TOUCH. BAGLEY IN PLACE AND DRAINING AT BEDSIDE. R ELVIRA NOTED - KERPAULINE Yang SARAH WRAP CHANGED TODAY PER PT. LOW GRADE TEMP 100.1. IV VANCO RUNNING FROM ER. FALL PRECAUTIONS IN PLACE. PT ORIENTED TO STAFF, ROOM, AND CALL [facility]. PT SETTLED INTO ROOM AND REPORTS COMFORT.
--- NOTE | 2016-08-18 21:46 | Admission Certification ---
Admission Certification Certification Statement - As attending physician, I certify that at the time of - admission, based on clinical presentation, severity of - symptoms, need for further diagnostic testing and - therapeutic interventions, and risk of adverse outcomes - without in-hospital treatment, in my clinical assessment, - this patient requires an acute hospital stay for a minimum - of two nights or longer. I have also considered psychsocial - factors such as support system, advanced age, financial - issues, cognitive issues, and failed out-patient treatments, - past re-admission history, safety of patient, and lack of - compliance as applicable. Specific rationale supporting this admission is: Sepsis secondary to perianal abscess
[2016-08-18 23:02] VITALS: BP 100/62
[2016-08-19 06:30] VITALS: BP 112/70
--- NOTE | 2016-08-19 07:35 | PN- General Surgery ---
See Addendum Subjective Subjective: anorectal pain. incontinent of loose stool. hassan placed for retention per pt. afebrile now, 102 yesterday. no RLE pain Objective Vital Signs and I&Os Vital Signs Date Time Temp Pulse Resp B/P B/P Pulse O2 O2 Flow FiO2 Mean Ox Delivery Rate 08/19 0630 98.5 91 20 112/70 96 Room Air 08/18 2332 Room Air 08/18 2302 100.1 100 20 100/62 97 Room Air 08/18 2007 100.7 87 18 122/59 98 Room Air 08/18 1927 100.5 08/18 1907 100.5 88 16 118/56 99 Room Air 08/18 1800 90 18 102/56 98 Room Air 08/18 1557 101.3 95 16 105/57 97 Room Air 08/18 1518 102.2 100 16 134/78 95 Room Air 08/18 1450 101.7 08/18 1415 101.7 98 16 132/65 97 Room Air 08/18 1212 99 Room Air 08/18 1146 98.5 96 18 149/76 99 Room Air Intake & Output 08/19 0800 08/19 0000 08/18 1600 08/18 0800 08/18 0000 12 1600 Intake Total 600 240 Output Total 500 1250 Balance 100 -1010 Intake, IV 600 Intake, Oral 0 240 Number 2 Bowel Movements Output, Urine 500 1250 Patient 256 lb 256 lb Weight Weight Reported by Patient Measurement Method Physical Exam: GEN: NAD CARD: [id number] RRR PULM: CTAB EXT: RLE stump dressing CDI, nt. healing excoriations on arms,left leg ANORECTAL: soliage on bedding- difficut to assess wound. stool/blood/?purulent material from anus and ?wound- difficult to tell as pt is very sensitive and unable to position for eval. Assessment/Plan Assessment/Plan A: perirectal wound/abscess/fistula with ?stool from wound, with sig leukocytosis and fevers yesterday. P: labs pdg cont abx will assess wound with Dr. Arauz Core Measures/Miscellaneous Venous Thromboembolism VTE Risk Factors: Acute medical illness VTE Contraindications: No Contraindications VTE Diagnosis: No Beta Rome Is Beta Rome a Home Med? No Antibiotics Is Patient on Antibiotics? Yes
--- NOTE | 2016-08-19 07:49 | NUR ---
Physical therapy: Orders for PT eval and treat received, chart reviewed. Spoke with PA and RN who report that patient will be going for I&D today. Requested that PT be held for today due to patient being in significant pain with drainage from wound. Will cancel PT for today and follow up tomorrow as appopriate. Thank you.
[2016-08-19 08:27] LABS: ABSOLUTE BASOPHIL COUNT 0 /CUMM (0.0-0.2); ABSOLUTE EOSINOPHIL COUNT 0.2 /CUMM (0.0-0.7); ABSOLUTE GRANULOCYTE CT 18.1 /CUMM (1.4-6.5); ABSOLUTE LYMPH COUNT 1.7 /CUMM (1.2-3.4); BASOPHIL % 0.2 % (0.0-2.0); EOSINOPHIL % 0.7 % (0-5); GRANULOCYTE % 82.4 % (42.2-75.2); HEMATOCRIT 25.3 % (42-52); MEAN CORPUSCULAR HGB 28.2 PG (27.0-31.0); MEAN CORPUSCULAR HGB CONC 33.5 G/DL (33.0-37.0); MEAN CORPUSCULAR VOLUME 84.2 FL (80.0-94.0); MEAN PLATELET VOLUME 7.7 FL (7.4-10.4); PLATELET COUNT 399 /CUMM (130-400); RBC DISTRIBUTION WIDTH 16.5 % (11.5-14.5)
--- NOTE | 2016-08-19 09:00 | PN- Housestaff ---
KHRIS CRYSTAL MD,SUNITA 08/19/16 0900: Subjective Follow-up For: Perirectal fistula/ ? abscess Left hydronephrosis. Complaints: COMPLAINING OF PAIN AND PERIRECTAL AREA Subjective: Patient is still complaining of pain in the perirectal area. Patient wants to sleep and take rest for surgery as planned around noontime today Review of Systems Constitutional: Reports: chills, fever. Cardiovascular: Denies: chest pain, palpitations. Respiratory: Denies: cough, short of breath. Genitourinary: Denies: discharge. Objective Last 24 Hrs of Vital Signs/I&O Vital Signs Date Time Temp Pulse Resp B/P B/P Pulse O2 O2 Flow FiO2 Mean Ox Delivery Rate 08/19 0841 110/70 08/19 0840 110/70 08/19 0630 98.5 91 20 112/70 96 Room Air 08/18 2332 Room Air 08/18 2302 100.1 100 20 100/62 97 Room Air 08/18 2007 100.7 87 18 122/59 98 Room Air 08/18 1927 100.5 08/18 1907 100.5 88 16 118/56 99 Room Air 08/18 1800 90 18 102/56 98 Room Air 08/18 1557 101.3 95 16 105/57 97 Room Air 08/18 1518 102.2 100 16 134/78 95 Room Air 08/18 1450 101.7 08/18 1415 101.7 98 16 132/65 97 Room Air Intake & Output 08/19 1600 08/19 0800 08/19 0000 Intake Total 600 240 Output Total 500 1250 Balance 100 -1010 Intake, IV 600 Intake, Oral 0 240 Number 2 Bowel Movements Output, Urine 500 1250 Patient 256 lb Weight Weight Reported by Patient Measurement Method Physical Exam General Appearance: Alert, Oriented X3, Mild Distress Skin: PAPULES ON UPPER EXTREMITIES HEENT: Atraumatic Cardiovascular: Regular Rate, Normal S1, Normal S2 Lungs: Clear to Auscultation, Normal Air Movement Abdomen: Normal Bowel Sounds, Soft, No Tenderness (1), PERIRECTAL AREA WITH ERYTHEMA AND SWELLING AND STOOL Neurological: Normal Speech, Normal Tone Extremities: RIGHT BELOW KNEE AMPUTATION Current Medications: Current Medications Sig/Angela Start time Last Medication Dose Route Stop Time Status Admin Acetaminophen 650 MG Q6P PRN 08/18 2200 AC PO Acetaminophen 1,000 MG ONCE ONE 08/18 1500 DC 08/18 IV 08/18 1501 1450 Amlodipine Besylate 5 MG DAILY 08/19 1000 AC 08/19 PO 0841 Aspirin Buffered 81 MG DAILY 08/19 1000 AC 08/19 PO 0840 Atorvastatin Calcium 5 MG 1700 08/19 1700 AC PO Ceftriaxone Sodium 1,000 MG DAILY 08/19 1345 AC IV Ciprofloxacin 400 MG Q12 08/18 2200 DC 08/19 Dextrose/Water 200 ML IV 0837 Escitalopram Oxalate 10 MG DAILY 08/19 1000 AC 08/19 PO 0840 Gabapentin 100 MG Q12P PRN 08/18 2315 AC PO Heparin Sodium 5,000 UNIT Q8 08/18 2200 AC 08/19 (Porcine) SC 0548 Ibuprofen 600 MG Q6P PRN 08/18 2200 AC PO Insulin Detemir 34 UNITS BID 08/18 2200 AC 08/19 SC 0836 Insulin Human Regular 0 Q6 08/18 2359 AC 08/19 SC 0550 Lactobacillus 1 CAP DAILY 08/19 1000 AC 08/19 Acidophilus PO 0840 Lisinopril 40 MG DAILY 08/19 1000 AC 08/19 PO 0840 Magnesium Hydroxide 30 ML Q3D PRN 08/18 2145 AC PO Melatonin 5 MG AT BEDTIME 08/18 2200 AC 08/18 PO 2226 Metronidazole 500 MG IQ8 08/19 0000 AC 08/19 N/A 1 UNIT IV 0835 Metronidazole 500 MG ONCE ONE 08/18 1330 DC 08/18 N/A 1 UNIT IV 08/18 1429 1555 Morphine Sulfate 2 MG Q4P PRN 08/18 2200 AC 08/19 IV 1020 Morphine Sulfate 0 .STK-MED ONE 08/187 DC .ROUTE Morphine Sulfate 6 MG ONCE ONE 08/18 1915 DC 08/18 IV 08/18 1916 1926 Senna/Docusate Sodium 2 TAB DAILY 08/19 1000 AC PO Sodium Chloride 1,000 ML Q13H 08/19 0000 DC 08/18 IV 08/19 1259 2355 Sodium Chloride 1,000 ML BOLUS ONE 08/18 1230 DC 08/18 IV 08/18 1429 1240 Sodium Chloride 1,000 ML Q13H 08/18 0000 DC IV 08/18 1259 Vancomycin HCl 0 .STK-MED ONE 08/18 1904 DC .ROUTE Vancomycin HCl 1,000 MG ONCE ONE 08/18 1715 DC 08/18 Sodium Chloride 250 ML IV 08/18 1814 1900 Last 24 Hrs of Lab/Ramin Results Last 24 Hrs of Labs/Mics: Laboratory Tests 08/19/16 1000: Urinalysis LIGHT H, Urine Color YEL, Urine Clarity HAZY H, Urine pH 6.0, Ur Specific [place] 1.015, Urine Protein 30 H, Urine Ketones NEG, Urine Nitrite NEG, Urine Bilirubin NEG, Urine Urobilinogen 1.0, Ur Leukocyte Esterase SMALL H , Ur Microscopic SEDIMENT EXAMINED, Urine RBC 3-5, Urine WBC 15-25 H, Ur Epithelial Cells MOD H, Urine Bacteria MANY H, Hyaline Casts RARE H, Granular Casts RARE H, Urine Mucus MOD H, Micro UA Comment BUDDING YEAST H, Urine Hemoglobin SMALL H, Urine Glucose NEG 08/19/16 0640: Anion Gap 11, Estimated GFR > 60, BUN/Creatinine Ratio 20.0, CBC w Diff NO MAN DIFF REQ, RBC 3.00 L, MCV 84.2, MCH 28.2, RDW 16.5 H, MPV 7.7, Gran % 82.4 H, Lymphocytes % 7.7 L, Monocytes % 9.0, Eosinophils % 0.7, Basophils % 0.2, Absolute Granulocytes 18.1 H, Absolute Lymphocytes 1.7, Absolute Monocytes 2.0 H, Absolute Eosinophils 0.2, Absolute Basophils 0, PUBS MCHC 33.5 08/18/16 2210: Lactic Acid 1.0 Microbiology 08/19 1000 URINE ROUT: Urine Culture - RECD 08/19 1000 STOOL: Clostridium difficile Toxin A & B - COMP 08/18 2245 BLOOD: Blood Culture - RES 08/18 2210 BLOOD: Blood Culture - RES 08/18 1856 URINE ROUT: Urine Culture - RES YEAST Lines/Diet/Fluids Lines: peripheral lines Restraints: none Assessment/Plan Assessment: 46-year-old man with past medical history significant for hypertension, insulin- dependent diabetes mellitus, and peripheral vascular disease, Group B strep sepsis secondary to a gangrenous right great toe status post amputation and 1 month course of Unasyn, osteomyelitis status post right BKA came to emergency department for chief complaint of one-week history of perirectal pain that is progressive and aggravated with sitting and bowel movement. Vitals on admission, patient was febrile to 102.2. Laboratory data showed leukocytosis of 20,000. CT of the abdomen and pelvis showed Abnormal appearance along the left gluteal cleft is possibly associated with a left perianal fistula extending to the posterior skin surface and Increased left hydronephrosis. Increased periureteral stranding. No calculi. Similar appearance of bilateral perinephric stranding. Patient was admitted on general medicine floor for the management of following problems Perianal fistula Surgical consult was placed overnight and patient was evaluated by surgical team. Patient is scheduled to go for examination under anesthesia and debridment. ID consult was placed as patient was recently treated for urinary tract infection in the facility and also a few papules were noticed on patient's upper extremity. UA simply is not great as it contains a lot of epithelial cells. We will follow-up the urine culture. As per ID recommendation antibiotics were switched from ciprofloxacin and metronidazole to metronidazole and ceftriaxone. We will follow-up with OR cultures. Left hydronephrosis Although patient has increased his left hydronephrosis on CAT scan, his renal function tests are within acceptable limit. Urology consult was placed overnight History of diabetes mellitus Accu-Cheks Patient is on insulin sliding scale Problem List: 1. Osteomyelitis 2. Leukocytosis 3. Rectal fistula Pain Ratin Pain Location: Amber-Rectal Pain Goal: Pain 4 or less Pain Plan: Pain medications ordered Tomorrow's Labs & Rationales: cbc for leukocytosis BEP to monitor Renal function DVT/Prophylaxis: pharmacological ALISON CHAKRABORTY 08/19/16 0953: Attending MD Review Statement Attending Statement Attending MD Statement: examined this patient, discuss w/resident/PA/BANK RUNNER, agreed w/resident/PA/BANK RUNNER, discussed with family, reviewed EMR data (avail), discussed with nursing, discussed with case mgmt, reviewed images, amended to note Attending Assessment/Plan: "46M PMH HTN, T2DM poorly controlled, diabetic neuropathy, PVD, recent RLE osteomyelitis s/p toe amputation and 6 weeks of Unsayn resenting with fever, chills, rectal pain, found to have perirectal abscess and fistula. Febrile 102, WBC 21, tachycardic, lactate pending. Patient appears ill and uncomfortable." ASSESSMENT 1. Perianal fistula with abscess 2. Left hydronephrosis and pernephric standing 3. Sepsis 2/2 above 4. T2DM on oral hypoglycemics poorly controlled 5. PVD and h/o OM s/p amputation Plan - Admit to general medicine - abx Consult ID, f/u Blood cultures - [place] rectal Surgery consulted, plan for EUA and debridement. - f/u Urine culture and UA - Urology consulted for hydronephrosis - RISS and titrate insulin as needed. - Patient is low risk for low risk procedure, patient is medically stable for procedure.
--- NOTE | 2016-08-19 13:06 | Cons- Infect Disease ---
General Information and HPI Consulting Request Date of Consult: 08/19/16 Requested By: MYLENE PERKINS,ALISON Reason for Consult: Rule out perirectal abscess or fistula Source of Information: patient, old records History of Present Illness: This is a 46-year-old man with hypertension, diabetes and peripheral vascular disease, hospitalized 3 1/2 months prior to admission with Group B strep sepsis secondary to a gangrenous right great toe, requiring amputation and a four-week course of Unasyn, rehospitalized 5 weeks prior to admission with progressive osteomyelitis of the right foot, for which he underwent a right BKA, with his hospital course complicated by postop pain, requiring narcotics, urinary retention, requiring straight catheterization, constipation, intermittent low- grade fevers and a persistent leukocytosis, with workup including cultures and a CT of the abdomen and pelvis negative, discharged to a rehabilitation facility, with his stay there complicated by a disseminated rash, a Proteus UTI, treated with a course of antibiotics, perirectal discomfort with loose stools over the past week and intermittent low-grade fevers with a persistent leukocytosis. On admission he was febrile to 102.2. Laboratory data revealed a white blood cell count of 20,000, BUN/creatinine 11 and 0.4, with normal liver enzymes. A CT of the abdomen and pelvis revealed a mild left hydronephrosis, bilateral mild perinephric stranding, similar to the previous study, and an abnormality along the left gluteal cleft with heterogeneous material, measuring 6.2 x 3.5 x 5.6 cm , extending to the posterior skin surface from the perianal region. He was given a dose of Vancomycin followed by Flagyl and Ceftriaxone, all given prior to blood cultures being drawn. He appears to have defervesced overnight. This morning he reports continued pain in the perirectal area. He is scheduled for surgery later this afternoon. Allergies/Medications Allergies: Coded Allergies: cephalexin (From KEFLEX) (Intermediate, HIVES 04/29/16) adhesive (Mild, IRRITATION 04/29/16) Home Med List: Amlodipine Besylate 5 MG TABLET 1 TAB PO DAILY HTN (Reported) Aspirin (Ecotrin*) 81 MG TABLET.DR 1 TAB PO DAILY HEART/BLOOD (Reported) Bisacodyl (Dulcolax) 10 MG SUPP.RECT 1 SUP RC DAILY PRN CONSTIPATION ( Reported) Escitalopram Oxalate (Lexapro) 10 MG TABLET 1 TAB PO DAILY MENTAL HEALTH ( Reported) Ferrous Sulfate (Slow Fe) 142 MG (45 MG IRON) TABLET.ER 1 TAB PO DAILY SUPPLEMENT Gabapentin 100 MG CAPSULE 100 MG PO Q12P PRN ANXIETY Glucagon,Human Recombinant (Glucagon Emergency Kit) 1 MG KIT 1 MG IM AD PRN HYPOGLYCEMIA (Reported) Insulin Detemir (Levemir Flextouch) 100 UNIT/ML (3 ML) INSULN.PEN 34 UNITS SC Q12H DM (Reported) Lactobacillus Acidophilus (Acidophilus) 1 EACH CAPSULE 1 CAP PO DAILY PROBIOTIC (Reported) Lisinopril 40 MG TABLET 1 TAB PO DAILY HTN (Reported) Lovastatin 20 MG TABLET 1 TAB PO DAILY cholesterol (Reported) Magnesium Hydroxide (Milk Of Magnesia) 400 MG/5 ML ORAL.SUSP 30 ML PO Q3D PRN CONSTIPATION (Reported) Melatonin (Unknown Strength) TABLET 5 MG PO QPM SLEEP (Reported) Metformin HCl 500 MG TABLET 1 TAB PO BID DM II (Reported) Na Phos,M-B/Na Phos,Di-Ba (Fleet Enema) 19 GRAM-7 GRAM/118 ML ENEMA 1 E RC DAILY PRN CONSTIPATION (Reported) Naloxone HCl (Narcan) 4 MG/ACTUATION SPRAY 4 MG CHANCE AD PRN OPIOID INDUCED RESP. DEPRESSIO (Reported) Sennosides (Senna) 8.6 MG TABLET 2 TAB PO DAILY PRN CONSTIPATION (Reported) Past History Travel History Traveled to [place] past 21 day No Medical History Blood Transfusion Hx: No Neurological: NONE EENT: NONE Cardiovascular: hypertension, hyperlipidemia Respiratory: NONE Gastrointestinal: C. difficile Hepatic: NONE Renal: NONE Musculoskeletal: osteomyelitis of RLE Psychiatric: NONE Endocrine: diabetes, obesity Blood Disorders: NONE Cancer(s): NONE COLD STORAGE SUPERINTENDENT/Reproductive: NONE History of MRSA: No History of VRE: No History of CDIFF: Yes Isolation History: Contact Surgical History Surgical History: appendectomy, I&D of posterior neck abscess left shoulder surgery right great toe amputation right BKA Family History Relations & Conditions If Any: FATHER (coronary artery disease-status post angioplasty and stents). MOTHER (diverticulitis). BROTHER (diabetes). Relation not specified for: FH: diabetes mellitus Psychosocial History Where Do You Live? Acute Rehab Services at Home: None Smoking Status: Never Smoked Functional Ability ADLs Independent: dressing, eating, toileting, bathing. Review of Systems Review of Systems Cardiovascular: Denies: chest pain. Respiratory: Denies: cough, short of breath. GI: Denies: abdominal pain, constipation, nausea, vomiting. Genitourinary: Reports: hesitation. Denies: dysuria, frequency. All Other Systems: Reviewed and Negative Exam & Diagnostic Data Last 24 Hrs of Vital Signs/I&O Vital Signs Date Time Temp Pulse Resp B/P B/P Pulse O2 O2 Flow FiO2 Mean Ox Delivery Rate 08/19 0841 110/70 08/19 0840 110/70 08/19 0630 98.5 91 20 112/70 96 Room Air 08/18 2332 Room Air 08/18 2302 100.1 100 20 100/62 97 Room Air 08/18 2007 100.7 87 18 122/59 98 Room Air 08/18 1927 100.5 08/18 1907 100.5 88 16 118/56 99 Room Air 08/18 1800 90 18 102/56 98 Room Air 08/18 1557 101.3 95 16 105/57 97 Room Air 08/18 1518 102.2 100 16 134/78 95 Room Air 08/18 1450 101.7 08/18 1415 101.7 98 16 132/65 97 Room Air Intake & Output 08/19 1600 08/19 0800 08/19 0000 Intake Total 600 240 Output Total 500 1250 Balance 100 -1010 Intake, IV 600 Intake, Oral 0 240 Number 2 Bowel Movements Output, Urine 500 1250 Patient 256 lb Weight Weight Reported by Patient Measurement Method Physical Exam Other Physical Findings: He is awake and alert in no acute distress. MAXIMUM TEMPERATURE 102.2. Skin reveals multiple healing papules on his extremities. HEENT exam is negative. Neck is supple with no adenopathy. Lungs are clear. Heart regular rhythm with no murmur. Abdomen is soft, nontender with positive bowel sounds; left perirectal erythema with stool expressed on minimal palpation of the area, tender to palpation. Back no CVA tenderness. Extremities right BKA dressing intact. Neuro is without focality. Jose catheter is in place. Last 24 Hours of Lab Results: Laboratory Tests 08/19 08/19 1000 0640 Chemistry Sodium (137 - 145 mmol/L) 135 L Potassium (3.5 - 5.1 mmol/L) 3.9 Chloride (98 - 107 mmol/L) 101 Carbon Dioxide (22 - 30 mmol/L) 23 Anion Gap (5 - 16) 11 BUN (9 - 20 mg/dL) 8 L Creatinine (0.7 - 1.2 mg/dL) 0.4 L Estimated GFR (>60 ml/min) > 60 BUN/Creatinine Ratio (7 - 25 %) 20.0 Hematology CBC w Diff NO MAN DIFF REQ WBC (4.8 - 10.8 /CUMM) 22.0 H RBC (4.70 - 6.10 /CUMM) 3.00 L Hgb (14.0 - 18.0 G/DL) 8.4 L Hct (42 - 52 %) 25.3 L MCV (80.0 - 94.0 FL) 84.2 MCH (27.0 - 31.0 PG) 28.2 RDW (11.5 - 14.5 %) 16.5 H Plt Count (130 - 400 /CUMM) 399 MPV (7.4 - 10.4 FL) 7.7 Gran % (42.2 - 75.2 %) 82.4 H Lymphocytes % (20.5 - 51.1 %) 7.7 L Monocytes % (1.7 - 9.3 %) 9.0 Eosinophils % (0 - 5 %) 0.7 Basophils % (0.0 - 2.0 %) 0.2 Absolute Granulocytes (1.4 - 6.5 /CUMM) 18.1 H Absolute Lymphocytes (1.2 - 3.4 /CUMM) 1.7 Absolute Monocytes (0.10 - 0.60 /CUMM) 2.0 H Absolute Eosinophils (0.0 - 0.7 /CUMM) 0.2 Absolute Basophils (0.0 - 0.2 /CUMM) 0 PUBS MCHC (33.0 - 37.0 G/DL) 33.5 Urines Urinalysis LIGHT H Urine Color (YEL,AMB,STR) YEL Urine Clarity (CLEAR) HAZY H Urine pH (5.0 - 8.0) 6.0 Ur Specific [place] (1.001 - 1.035) 1.015 Urine Protein (NEG,<30 MG/DL) 30 H Urine Ketones (NEG) NEG Urine Nitrite (NEG) NEG Urine Bilirubin (NEG) NEG Urine Urobilinogen (0.1 - 1.0 EU/dl) 1.0 Ur Leukocyte Esterase (NEG) SMALL H Ur Microscopic SEDIMENT EXAMINED Urine RBC (0 - 5 /HPF) 3-5 Urine WBC (0 - 2 /HPF) 15-25 H Ur Epithelial Cells (NONE,FEW) MOD H Urine Bacteria (NEG/NONE) MANY H Hyaline Casts (0/LPF) RARE H Granular Casts (NONE /LPF) RARE H Urine Mucus (FEW,NONE) MOD H Micro UA Comment BUDDING YEAST H Urine Hemoglobin (NEG) SMALL H Urine Glucose (N MG/DL) NEG 08/18 2210 Chemistry Lactic Acid (0.7 - 2.1 mmol/L) 1.0 Last 24 Hours of Ramin Results: Blood cultures 2 August 18 negative Stool C. difficile August 19 pending Urine culture August 18 approximately 75,000 colonies of yeast Urine culture August 19 pending Diagnostic Data Recent Imaging Findings: CT of the abdomen and pelvis August 18 revealed a mild left hydronephrosis, bilateral mild perinephric stranding, similar to the previous study, and an abnormality along the left gluteal cleft with heterogeneous material, measuring 6.2 x 3.5 x 5.6 cm, extending to the posterior skin surface from the perianal region. Assessment/Plan Assessment/Plan Impression: This is a 46-year-old man with a history of diabetes, status post a recent hospitalization for a right BKA secondary to osteomyelitis of the right foot, with his postop course complicated by a persistent leukocytosis and intermittent low-grade fevers, which remained unexplained, admitted on August 18 with a one- week history of perirectal pain and intermittent fevers, found on admission to be febrile with a leukocytosis and with exam and CT scan suggestive of a perirectal fistula and possible abscess. He is scheduled for surgery today which should elucidate the etiology of this process. He needs to be continued on empiric broad-spectrum antibiotics pending OR cultures, but would include coverage for Staph aureus and Group A strep in addition to anaerobes and gram- negative rods. He has a reported allergy to Keflex, but this has not been confirmed and he has tolerated Keflex in the past and Cefazolin more recently; therefore feel that he can receive cephalosporins. The healing papules suggest a possible drug reaction and further information regarding this from the [facility] would be helpful. The candiduria is of unclear significance and would not treat at this time. Suggestion: 1. Would obtain further history from the [facility] regarding details regarding the treatment for his UTI and and regarding the disseminated rash 2. Await OR 3. Follow-up stool for C. difficile 4. Discontinue Ciprofloxacin 5. Begin Ceftriaxone 1 g IV every 24 hours 6. Continue Flagyl Consult Acknowledgment - Thank you for your consult request.
--- NOTE | 2016-08-19 14:20 | Operative Report ---
Operative/Inv Procedure Report Surgery Date: 08/19/16 Name of Procedure: Exam under anesthesia Incision and extensive debridement of perianal and perineal tissue Pre-Operative Diagnosis: Perirectal abscess Post-Operative Diagnosis: Carolina gangrene Estimated Blood Loss: less than 50ml Surgeon/Treatment Plant Mechanic: Dr Sg Arauz Jr., DO Anesthesia: general endotracheal tube Drains: Kerlix roll soaked in dilute Betadine as packing Specimens: 1. Fluid from abscess cavity 2. Perianal tissue for tissue culture 3. Amber-anal tissue for routine pathological evaluation Microbiology: Wound cultures Complications: None Condition: Good Operative Indication: This 46-year-old gentleman with severe brittle diabetes and history of peripheral vascular disease status post recent [id number] of dictation. Presented to [facility] last night from his retirement with complaints of perianal pain. CT scan appeared to indicate perirectal abscess and fistula. He was started on IV antibiotics. Upon bedside evaluation this morning which was limited based on patient body habitus and mobility patient appeared to have a significant perianal infection. So he was scheduled for surgery later this morning Operative/Procedure Note Note: Patient was taken into the operating room. He underwent induction of general anesthesia placement of endotracheal tube on a stretcher adjacent to the operating room table. Patient had a previous placed Jose catheter. After securing the airway he was converted to the prone jackknife position on the operating table with great care to protect his spine and neck and airway. Once on the table his bony prominences were padded. The perineum was then prepped and draped in usual fashion. In the anterior anal margin was a area with wet gangrene which was weeping purulent material. More anterior to this was a large area of induration and erythema and fluctuance. I first did a gentle digital examination of the rectum and we did not appear to communicate with the rectum. I then evaluated the wound and entered a abscess cavity with several cc of purulent material present. This fluid was aspirated and sent for culture. The obviously gangrenous tissue was then excised using electrocautery. Some of the tissue was sent for tissue culture, remainder of the tissue was sent for routine pathology. I continued to do extensive debridement until there was no frankly necrotic tissue present in the wound. At this point most of the wound base was bleeding and appeared to be viable tissue. During the process of debridement skin and subcutaneous adipose tissue and deep tissue including gluteal muscle was the excised. At this point the wound was pulse lavaged with several liters of sterile saline mixed with antibiotic solution. At this point the wound was packed with a Kerlix roll that had been soaked in dilute. A bulky dressing was applied. The patient was converted to supine position. The patient was extubated in the operating room. At the end of this operational needle sponges and measurements were accounted for. Findings: Carolina's gangrene Discharge Disposition: PACU Additional Comments: The patient to start wound care tomorrow, half-strength Dakin solution packing twice a day Patient will likely need diverting stoma
--- NOTE | 2016-08-19 15:31 | NUR ---
SHIFT NOTE: UNEVENTFUL SHIFT. PATIENT'S PAIN WAS WELL CONTROLLED WITH MORPHINE 2MG Q4. AUNT WAS AT THE BEDSIDE UNTIL PATIENT LEFT FOR THE OR. OTHERWISE, NO COMPLAINTS. REPORT GIVEN TO UNCOMARCHANA LORENZO. PATIENT CONTINUES TO BE IN THE OR. NO REPORT TAKEN FROM PACU AT THE CHANGE OF SHIFT.
--- NOTE | 2016-08-19 15:50 | NUR ---
PACU NOTE- PT ARRIVED TO FLOOR FROM PACU, A/O X 3, ON RA, 96%, VSS. DENIES PAIN AT THIS TIME, STATES SOME PAIN WITH MOVEMENT FROM STRETCHER TO BED. ON SIZEWISE BED NOW. AFEBRILE. BAGLEY INTACT DRAINING CLEAR YELLOW URINE. SMALL AMT OF SS DRAINAGE TO RECTAL SURGICAL AREA-DSG REINFORCED. DRESSING AND SARAH WRAP TO RIGHT STUMP AREA CD+I- PT ASKING FOR THE DSG TO BE CHANGED "ITS SUPPOSED TO BE CHANGED EVERYDAY" CALL PLACED TO SURGICAL PA AND GEAR TECHNICIAN FOR ORDERS - CLEAN WITH NS F/B DSD. PT WISHES TO ONLY HAVE CLEAR LIQ DIET FOR DINNER TONIGHT- " I WANT TO TAKE IT EASY FOR TONIGHT, ABRAM BEEN HAVING DIARRHEA". BED ALARM IN PLACE. SAFETY PRECAUTIONS MAINTAINED.
[2016-08-19 16:26] VITALS: BP 126/70
[2016-08-19 18:36] VITALS: BP 104/70
--- NOTE | 2016-08-19 19:42 | NUR ---
RIGHT STUMP DSG CHANGED AT THIS TIME. SITE HAD XEROFORM, FLUFFS, ABD, KERLEX AND SARAH WRAP. ORDER OBTAINED FROM CORRUGATOR FOR DRESSING. TWO SMALL OPEN AREAS TO STUMP WITH SCANT SS DRAINAGE-STITCHES INTACT, CLEANSED WITH NS, FOLLOWED BY XEROFORM, DSD, KERLEX AND SARAH WRAP.
[2016-08-19 20:14] VITALS: BP 106/66
[2016-08-19 22:30] VITALS: BP 132/74
[2016-08-20 02:26] VITALS: BP 144/80
--- NOTE | 2016-08-20 07:40 | PN- Housestaff ---
See Addendum Subjective Follow-up For: Perirectal abscess Left hydronephrosis Complaints: DECREASED PAIN AT PERIRECTAL AREA Subjective: According to the patient the pain at the perirectal area has reduced. Remained afebrile overnight. Review of Systems Constitutional: Denies: chills, fever. EENTM: Denies: visual changes. Cardiovascular: Denies: chest pain, palpitations. Respiratory: Denies: cough, short of breath. Genitourinary: Denies: discharge. Objective Last 24 Hrs of Vital Signs/I&O Vital Signs Date Time Temp Pulse Resp B/P B/P Pulse O2 O2 Flow FiO2 Mean Ox Delivery Rate 08/20 1359 98.8 78 18 120/60 98 Room Air 08/20 0846 120/74 08/20 0845 120/74 08/20 0746 98.5 92 20 140/80 97 Room Air 08/20 0226 98.7 94 20 144/80 96 Room Air 08/20 0000 95 Room Air 08/19 2230 98.6 90 20 132/74 95 Room Air 08/19 2014 98.7 79 20 106/66 97 Room Air 08/19 1836 98.6 78 20 104/70 96 Room Air 08/19 1626 97.8 85 16 126/70 96 Room Air Intake & Output 08/20 1600 08/20 0800 08/20 0000 Intake Total 250 350 Output Total 600 900 950 Balance -600 -650 -600 Intake, IV 150 350 Intake, Oral 100 Output, Urine 600 900 950 Physical Exam General Appearance: Alert, Oriented X3, Cooperative, No Acute Distress Skin: SKIN PAPULES ON UPPER EXTREMITIES HEENT: Atraumatic Cardiovascular: Regular Rate, Normal S1, Normal S2 Lungs: Clear to Auscultation, Normal Air Movement Abdomen: Normal Bowel Sounds, Soft, PERIRECTAL AREA DRESSING Extremities: No Clubbing, No Cyanosis, No Edema Vascular: Normal Pulses Current Medications: Current Medications Sig/Angela Start time Last Medication Dose Route Stop Time Status Admin Acetaminophen 650 MG Q6P PRN 08/18 2200 AC PO Amlodipine Besylate 5 MG DAILY 08/19 1000 AC 08/20 PO 0845 Aspirin Buffered 81 MG DAILY 08/19 1000 AC 08/20 PO 0851 Atorvastatin Calcium 5 MG 1700 08/19 1700 AC 08/19 PO 1747 Ceftriaxone Sodium 1,000 MG DAILY 08/19 1345 DC 08/20 IV 1247 Escitalopram Oxalate 10 MG DAILY 08/19 1000 AC 08/20 PO 0845 Gabapentin 100 MG Q12P PRN 08/18 2315 AC PO Heparin Sodium 5,000 UNIT Q8 08/18 2200 AC 08/20 (Porcine) SC 1247 Hydromorphone HCl 1 MG ONCE ONE 08/20 0845 DC 08/20 IV 08/20 0846 0849 Hydromorphone HCl 2 MG .STK-MED ONE 08/19 1435 DC IM 08/19 1436 Ibuprofen 600 MG Q6P PRN 08/18 2200 AC PO Insulin Aspart 0 TIDAC 08/20 0800 AC SC Insulin Detemir 34 UNITS BID 08/18 2200 AC 08/20 SC 0854 Insulin Human Regular 0 Q6 08/18 2359 DC 08/19 SC 0550 Lactobacillus 1 CAP DAILY 08/19 1000 AC 08/20 Acidophilus PO 0845 Lisinopril 40 MG DAILY 08/19 1000 AC 08/20 PO 0846 Magnesium Hydroxide 30 ML Q3D PRN 08/18 2145 AC PO Melatonin 5 MG AT BEDTIME 08/18 2200 AC 08/19 PO 2122 Metronidazole 500 MG IQ8 08/19 0000 DC 08/20 N/A 1 UNIT IV 0844 Morphine Sulfate 2 MG Q4P PRN 08/18 2200 AC 08/20 IV 1246 Non-Formulary 0 SEE ADMIN CRITERIA 08/20 1415 UNVr Medication ANY Senna/Docusate Sodium 2 TAB DAILY 08/19 1000 AC PO Sodium Hypochlorite 1 DANIELLE BID 08/20 0800 AC 08/20 TOP 0845 Last 24 Hrs of Lab/Ramin Results Last 24 Hrs of Labs/Mics: Laboratory Tests 08/20/16 0640: Anion Gap 10, Estimated GFR > 60, BUN/Creatinine Ratio 12.5, CBC w Diff NO MAN DIFF REQ, RBC 2.99 L, MCV 84.4, MCH 28.0, RDW 15.9 H, MPV 7.8, Gran % 80.2 H, Lymphocytes % 10.5 L, Monocytes % 6.9, Eosinophils % 2.0, Basophils % 0.4, Absolute Granulocytes 11.3 H, Absolute Lymphocytes 1.5, Absolute Monocytes 1.0 H, Absolute Eosinophils 0.3, Absolute Basophils 0.1, PUBS MCHC 33.1 Assessment/Plan Assessment: 46-year-old man with past medical history significant for hypertension, insulin- dependent diabetes mellitus, and peripheral vascular disease, Group B strep sepsis secondary to a gangrenous right great toe status post amputation and 1 month course of Unasyn, osteomyelitis status post right BKA came to emergency department for chief complaint of one-week history of perirectal pain that is progressive and aggravated with sitting and bowel movement. Vitals on admission, patient was febrile to 102.2. Laboratory data showed leukocytosis of 20,000. CT of the abdomen and pelvis showed Abnormal appearance along the left gluteal cleft is possibly associated with a left perianal fistula extending to the posterior skin surface and Increased left hydronephrosis. Increased periureteral stranding. No calculi. Similar appearance of bilateral perinephric stranding. Patient was admitted on general medicine floor for the management of following problems Perianal abscess Surgical consult was obtained and patient was evaluated by surgical team. Patient underwent examination under anesthesia and debridment. ID consult was placed as patient was recently treated for urinary tract infection in the facility and also a few papules were noticed on patient's upper extremity. UA sample is not great as it contains a lot of epithelial cells. Urine culture growing yeast, most likely colonization. As per ID recommendation antibiotics were switched from ciprofloxacin and metronidazole to metronidazole and ceftriaxone. After OR cultures grew Group B strep, Enterococcus and gram-negative rods, antibiotics were switched as per ID recommendation to Zosyn and metronidazole and ceftriaxone was discontinued. Left hydronephrosis Although patient has increased his left hydronephrosis on CAT scan, his renal function tests are within acceptable limit. Urology consult pending History of diabetes mellitus Accu-Cheks Patient is on insulin sliding scale Patient is full code Patient is on heparin for DVT prophylaxis Patient is on diabetic diet Problem List: 1. Perirectal abscess Pain Ratin Pain Location: Amber-Rectal area Pain Goal: Pain 4 or less Pain Plan: Continue current pain medications Tomorrow's Labs & Rationales: CBC for leukocytosis BEP for hyponatremia DVT/Prophylaxis: pharmacological
[2016-08-20 07:46] VITALS: BP 140/80
[2016-08-20 08:29] LABS: ABSOLUTE BASOPHIL COUNT 0.1 /CUMM (0.0-0.2); ABSOLUTE EOSINOPHIL COUNT 0.3 /CUMM (0.0-0.7); ABSOLUTE GRANULOCYTE CT 11.3 /CUMM (1.4-6.5); ABSOLUTE LYMPH COUNT 1.5 /CUMM (1.2-3.4); BASOPHIL % 0.4 % (0.0-2.0); GRANULOCYTE % 80.2 % (42.2-75.2); HEMATOCRIT 25.2 % (42-52); MEAN CORPUSCULAR HGB CONC 33.1 G/DL (33.0-37.0); MEAN CORPUSCULAR VOLUME 84.4 FL (80.0-94.0); MEAN PLATELET VOLUME 7.8 FL (7.4-10.4); PLATELET COUNT 415 /CUMM (130-400); RBC DISTRIBUTION WIDTH 15.9 % (11.5-14.5); RED BLOOD CELL CT 2.99 /CUMM (4.70-6.10); WHITE BLOOD CELL COUNT 14.1 /CUMM (4.8-10.8)
--- NOTE | 2016-08-20 09:16 | PN- General Surgery ---
See Addendum Subjective Subjective: No acute overnight events reported. Patient is POD 1, s/p I&D richard-rectal abscess. He acknowledges pain but states that it is tolerable with pain medication. He denies chest pain, shortness of breath and difficulty breathing. He denies nausea and vomitting. He has hassan catheter in place still, denies any catheter associated discomfort. He has not moved his bowels since having procedure. Objective Vital Signs and I&Os Vital Signs Date Time Temp Pulse Resp B/P B/P Pulse O2 O2 Flow FiO2 Mean Ox Delivery Rate 08/20 0846 120/74 08/20 0845 120/74 08/20 0746 98.5 92 20 140/80 97 Room Air 08/20 0226 98.7 94 20 144/80 96 Room Air 08/20 0000 95 Room Air 08/19 2230 98.6 90 20 132/74 95 Room Air 08/19 2013 98.7 79 20 106/66 97 Room Air 08/19 1836 98.6 78 20 104/70 96 Room Air 08/19 1626 97.8 85 16 126/70 96 Room Air Intake & Output 08/20 1600 08/20 0800 08/20 0000 08/19 1600 08/19 0800 08/19 0000 Intake Total 250 350 450 600 240 Output Total 900 301 492 2976 Balance -650 -600 450 100 -1010 Intake, IV 150 350 450 600 Intake, Oral 100 0 240 Number 2 Bowel Movements Output, Urine 900 313 740 5206 Patient 256 lb Weight Weight Reported by Patient Measurement Method Physical Exam: General: Alert and oriented x3, no acute distress Cardiac: RRR, s1s2 Pulmonary: CTA bilaterally Abdomen: Non-distended Extremities: Moves all extremities, is s/p r bka with clean dry dressing on stump, skin warm and dry, distal sensations intact, able to roll side to side Surgical site: Dressing taken down, packing removed. Small amount of necrotic tissue noted along rim of wound but no excessive surrounding erythema, no drainage noted presently, no purulence. Assessment/Plan Assessment/Plan This is a 46 year old male, POD 1, s/p I&D of richard-rectal abscess, dressing changed today, repacked with 1/2% Dakins soaked kerlix. -Continue BID wtd dsg changes with 1/2 % dakin soaked kerlix -Wound evaluated by Dr. Stoddard, will not require additional debridement today, will continue to monitor site -Continue diet as tolerated -Consider adding antifungal as urine showing yeast -Continue current abx, await sensitivities from OR culture to determine if changes are needed
--- NOTE | 2016-08-20 09:43 | NUR ---
PATIENT'S BS NOTED TO BE 62. 8 OZ OF ORANGE JUICE GIVEN PER DR. MARAH DORSEY'S ORDERS. RECHECKED BS IN 30 M IN. BS NOTED TO BE 136. PATIENT REMAINS STABLE, ASYMPTOMATIC.
--- NOTE | 2016-08-20 10:33 | NUR ---
Physical Therapy: Attempted to see pt this morning for evaluation. Pt states "I want nothing to do with Physical Therapy." At this time will place pt on hold. Pt has been able to stand and pivot to a chair last admission. Has a husky bedhold at STR. Will not follow.
[2016-08-20 13:59] VITALS: BP 120/60
--- NOTE | 2016-08-20 14:07 | PN- Infect Dx ---
Subjective Subjective: Afebrile. He feels much improved today with decreased discomfort. Objective Last 24 Hrs of Vital Signs/I&O Vital Signs Date Time Temp Pulse Resp B/P B/P Pulse O2 O2 Flow FiO2 Mean Ox Delivery Rate 08/20 0846 120/74 08/20 0845 120/74 08/20 0746 98.5 92 20 140/80 97 Room Air 08/20 0226 98.7 94 20 144/80 96 Room Air 08/20 0000 95 Room Air 08/19 2230 98.6 90 20 132/74 95 Room Air 08/19 2014 98.7 79 20 106/66 97 Room Air 08/19 1836 98.6 78 20 104/70 96 Room Air 08/19 1626 97.8 85 16 126/70 96 Room Air Intake & Output 08/20 1600 08/20 0800 08/20 0000 Intake Total 250 350 Output Total 600 900 950 Balance -600 -650 -600 Intake, IV 150 350 Intake, Oral 100 Output, Urine 600 900 950 Physical Exam Other Physical Findings: He appears comfortable in no acute distress Skin multiple healing excoriations on the extremities Back dressing intact over the perirectal area Jose catheter remains in place Results Last 24 Hours of Lab Results: Laboratory Tests 08/20 0640 Chemistry Sodium (137 - 145 mmol/L) 135 L Potassium (3.5 - 5.1 mmol/L) 3.9 Chloride (98 - 107 mmol/L) 101 Carbon Dioxide (22 - 30 mmol/L) 25 Anion Gap (5 - 16) 10 BUN (9 - 20 mg/dL) 5 L Creatinine (0.7 - 1.2 mg/dL) 0.4 L Estimated GFR (>60 ml/min) > 60 BUN/Creatinine Ratio (7 - 25 %) 12.5 Hematology CBC w Diff NO MAN DIFF REQ WBC (4.8 - 10.8 /CUMM) 14.1 H RBC (4.70 - 6.10 /CUMM) 2.99 L Hgb (14.0 - 18.0 G/DL) 8.4 L Hct (42 - 52 %) 25.2 L MCV (80.0 - 94.0 FL) 84.4 MCH (27.0 - 31.0 PG) 28.0 RDW (11.5 - 14.5 %) 15.9 H Plt Count (130 - 400 /CUMM) 415 H MPV (7.4 - 10.4 FL) 7.8 Gran % (42.2 - 75.2 %) 80.2 H Lymphocytes % (20.5 - 51.1 %) 10.5 L Monocytes % (1.7 - 9.3 %) 6.9 Eosinophils % (0 - 5 %) 2.0 Basophils % (0.0 - 2.0 %) 0.4 Absolute Granulocytes (1.4 - 6.5 /CUMM) 11.3 H Absolute Lymphocytes (1.2 - 3.4 /CUMM) 1.5 Absolute Monocytes (0.10 - 0.60 /CUMM) 1.0 H Absolute Eosinophils (0.0 - 0.7 /CUMM) 0.3 Absolute Basophils (0.0 - 0.2 /CUMM) 0.1 PUBS MCHC (33.0 - 37.0 G/DL) 33.1 Last 24 Hours of Ramin Results: OR cultures August 09 labeled perirectal abscess and tissue positive for Group B strep, Enterococcus and 3 types of gram-negative rods Blood cultures 2 August 18 negative Urine culture August 18 approximately 75,000 colonies of yeast Urine culture August 19 approximately 20,000 colonies of yeast Stool C. difficile August 19 negative Assessment/Plan Impression: Improved status post I&D of a perirectal abscess yesterday with temperatures and white blood cell count decreased on empiric treatment with Ceftriaxone and Flagyl. His OR cultures are pending but, given the isolation of Enterococcus and multiple gram negative rods, his antibiotics will need to be adjusted pending final cultures. The candiduria is of unclear significance and would not treat at this time. The multiple lesions on his extremities, which developed at the long-term and which appear to be healing, suggest the possibility of a drug reaction. Suggestion: 1. Would obtain further details from the long-term regarding the disseminated rash 2. Remove Jose catheter 3. Follow-up final OR cultures 4. Discontinue Ceftriaxone and Flagyl 5. Begin Zosyn 4.5 g IV every 6 hours pending above
--- NOTE | 2016-08-20 15:38 | NUR ---
SHIFT NOTE: UNEVENTFUL SHIFT. SURGICAL DSG CHANGED BY SURGEON AND SURGICAL PA CHERYL. RN AT THE BEDSIDE TO ASSIST. RECTAL SITE OPEN, PACKED WITH DAKINS GAUZE AND ABD PAD. PATIENT VERBALIZED EXTREME PAIN WITH THE DSG CHANGE. PER SURGICAL PACHERYL, TO PREMEDICATE PATIENT PRIOR TO RECTAL DSG CHANGES. PATIENT IN AGREEMENT WITH THAT PLAN HE DOES NOT WANT TO ENDURE SIMILAR PAIN NEXT TIME. OTHERWISE, RESPONDED WELL TO IV DILAUDID ONE TIME DOSE. REMAINED COMFORTABLE THROUHGOUT THE SHIFT. HOWEVER, REFUSED REPOSITIONING, PT OR FOLLOW UP ASSESSMENT OF THE RECTAL AREA HE DID NOT WANT TO BE MOVED AFRAID OF PAIN. REPORT GIVEN TO UNCOMING RN. PATIENT DUE TO VOID DURING THE SHIFT BAGLEY WAS REMOVED.
[2016-08-20 22:06] VITALS: BP 134/80
[2016-08-21 06:29] VITALS: BP 140/76
--- NOTE | 2016-08-21 07:48 | PN- Housestaff ---
See Addendum Subjective Follow-up For: Perirectal abscess Carolina's gangrene Left hydronephrosis Complaints: Pain in the amber-rectal area Subjective: Patient feels better but still complains of significant pain with bowel movements. She remained afebrile overnight Review of Systems Constitutional: Denies: chills, fever. EENTM: Denies: visual changes. Cardiovascular: Denies: chest pain. Respiratory: Denies: cough, short of breath. Gastrointestinal: Denies: abdominal pain. Genitourinary: Denies: dysuria. Objective Last 24 Hrs of Vital Signs/I&O Vital Signs Date Time Temp Pulse Resp B/P B/P Pulse O2 O2 Flow FiO2 Mean Ox Delivery Rate 08/21 0928 112/74 08/21 926 112/74 08/21 06 98.2 85 18 140/76 97 Room Air 08/20 2205 99.1 80 18 134/80 94 Room Air Intake & Output 08/21 1600 08/21 0800 08/21 0000 Intake Total 1500 500 400 Output Total 1050 450 650 Balance 450 50 -250 Intake, IV 200 Intake, Oral 1500 300 400 Number 1 Bowel Movements Output, Urine 1050 450 650 Physical Exam General Appearance: Alert, Oriented X3, Cooperative, Mild Distress HEENT: Atraumatic Neck: Supple Cardiovascular: Regular Rate, Normal S1, Normal S2 Lungs: Clear to Auscultation, Normal Air Movement Abdomen: Normal Bowel Sounds, Soft, No Tenderness, Amber-rectal area covered with dressing Extremities: RIGHT BKA intact dressing Current Medications: Current Medications Sig/Angela Start time Last Medication Dose Route Stop Time Status Admin Acetaminophen 650 MG Q6P PRN 08/18 2200 AC PO Amlodipine Besylate 5 MG DAILY 08/19 1000 AC 08/21 PO 0928 Ampicillin Sodium/ 3,000 MG Q6 08/21 1200 AC 08/21 Sulbactam Sodium IV 1407 Sodium Chloride 100 ML Aspirin Buffered 81 MG DAILY 08/19 1000 AC 08/21 PO 09 Atorvastatin Calcium 5 MG 1700 08/19 1700 AC 08/20 PO 1749 Escitalopram Oxalate 10 MG DAILY 08/19 1000 AC 08/21 PO 0927 Gabapentin 100 MG Q12P PRN 08/18 2315 AC PO Heparin Sodium 5,000 UNIT Q8 08/18 2200 AC 08/21 (Porcine) SC 1253 Hydromorphone HCl 1 MG Q12P PRN 08/21 0930 AC IV Ibuprofen 600 MG Q6P PRN 08/18 2200 AC PO Insulin Aspart 0 TIDAC 08/20 0800 AC SC Insulin Detemir 34 UNITS BID 08/18 2200 AC 08/21 SC 0929 Lactobacillus 1 CAP DAILY 08/19 1000 AC 08/21 Acidophilus PO 0927 Lisinopril 40 MG DAILY 08/19 1000 AC 08/21 PO 0927 Magnesium Hydroxide 30 ML Q3D PRN 08/18 2145 AC PO Melatonin 5 MG AT BEDTIME 08/18 2200 AC 08/20 PO 2215 Morphine Sulfate 2 MG Q4P PRN 08/18 2200 AC 08/21 IV 1252 Patient Medication 1 ED .STK-MED ONE 08/21 1403 DC Teaching ED 08/21 1404 Piperacillin Sod/ 4.5 GM Q6H 08/20 1600 DC 08/21 Tazobactam Sod IV 0923 Sodium Chloride 100 ML Senna/Docusate Sodium 2 TAB DAILY 08/19 1000 AC PO Sodium Hypochlorite 1 DANIELLE BID 08/20 0800 AC 08/21 [facility] 0928 Last 24 Hrs of Lab/Ramin Results Last 24 Hrs of Labs/Mics: Laboratory Tests 08/21/16 0815: Anion Gap 10, Estimated GFR > 60, BUN/Creatinine Ratio 10.0, CBC w Diff NO MAN DIFF REQ, RBC 3.18 L, MCV 82.6, MCH 27.4, RDW 16.0 H, MPV 7.4, Gran % 72.0, Lymphocytes % 13.8 L, Monocytes % 9.3, Eosinophils % 4.7, Basophils % 0.2, Absolute Granulocytes 6.8 H, Absolute Lymphocytes 1.3, Absolute Monocytes 0.9 H, Absolute Eosinophils 0.4, Absolute Basophils 0, PUBS MCHC 33.2 Assessment/Plan Assessment: 46-year-old man with past medical history significant for hypertension, insulin- dependent diabetes mellitus, and peripheral vascular disease, Group B strep sepsis secondary to a gangrenous right great toe status post amputation and 1 month course of Unasyn, osteomyelitis status post right BKA came to emergency department for chief complaint of one-week history of perirectal pain that is progressive and aggravated with sitting and bowel movement. Vitals on admission, patient was febrile to 102.2. Laboratory data showed leukocytosis of 20,000. CT of the abdomen and pelvis showed Abnormal appearance along the left gluteal cleft is possibly associated with a left perianal fistula extending to the posterior skin surface and Increased left hydronephrosis. Increased periureteral stranding. No calculi. Similar appearance of bilateral perinephric stranding. Patient was admitted on general medicine floor for the management of following problems Perianal abscess Surgical consult was obtained and patient was evaluated by surgical team. Patient underwent examination under anesthesia and debridment. ID consult was placed as patient was recently treated for urinary tract infection in the facility and also a few papules were noticed on patient's upper extremity. UA sample is not great as it contains a lot of epithelial cells. Urine culture growing yeast, most likely colonization. As per ID recommendation antibiotics were switched from ciprofloxacin and metronidazole to metronidazole and ceftriaxone. After OR cultures grew Group B strep, Enterococcus and gram-negative rods, antibiotics were switched as per ID recommendation to Zosyn and metronidazole and ceftriaxone was discontinued. Today Zosyn was discontinued and it was switched to IV Unasyn based on the sensitivity results. General surgery is planning for second Look of the wound and with washout and a debridment in the operating room on Wednesday. Patient might need a diverting stoma because of persistent fecal soilage. We'll keep the patient nothing by mouth Wednesday night Left hydronephrosis Although patient has increased his left hydronephrosis on CAT scan, his renal function tests are within acceptable limit. History of diabetes mellitus Accu-Cheks Patient is on insulin sliding scale Patient is full code Patient is on heparin for DVT prophylaxis Patient is on diabetic diet Problem List: 1. Perirectal abscess Pain Ratin Pain Location: Amber-rectal area Pain Goal: Pain 4 or less Pain Plan: Dilaudid premedication before dressing change Tomorrow's Labs & Rationales: CBC to follow white count BEP to follow renal function DVT/Prophylaxis: pharmacological
--- NOTE | 2016-08-21 08:12 | Cons- Urology ---
General Information and HPI Consulting Request Date of Consult: 08/20/16 Requested By: ALISON CHAKRABORTY MD Reason for Consult: scrotal abscess Source of Information: patient Exam Limitations: no limitations History of Present Illness: 46-year-old gentleman with diabetes, and multiple medical problems including bilateral lower extremity amputations. Urology consult was requested to evaluate the scrotal lesion. The patient states that he has recently had a perirectal abscess I&D and feels much better. Does not complain of any scrotal or gentle issues at this time. Allergies/Medications Allergies: Coded Allergies: cephalexin (From KEFLEX) (Intermediate, HIVES 04/29/16) adhesive (Mild, IRRITATION 04/29/16) Home Med List: Amlodipine Besylate 5 MG TABLET 1 TAB PO DAILY HTN (Reported) Aspirin (Ecotrin*) 81 MG TABLET.DR 1 TAB PO DAILY HEART/BLOOD (Reported) Bisacodyl (Dulcolax) 10 MG SUPP.RECT 1 SUP RC DAILY PRN CONSTIPATION ( Reported) Escitalopram Oxalate (Lexapro) 10 MG TABLET 1 TAB PO DAILY MENTAL HEALTH ( Reported) Ferrous Sulfate (Slow Fe) 142 MG (45 MG IRON) TABLET.ER 1 TAB PO DAILY SUPPLEMENT Gabapentin 100 MG CAPSULE 100 MG PO Q12P PRN ANXIETY Glucagon,Human Recombinant (Glucagon Emergency Kit) 1 MG KIT 1 MG IM AD PRN HYPOGLYCEMIA (Reported) Insulin Detemir (Levemir Flextouch) 100 UNIT/ML (3 ML) INSULN.PEN 34 UNITS SC Q12H DM (Reported) Lactobacillus Acidophilus (Acidophilus) 1 EACH CAPSULE 1 CAP PO DAILY PROBIOTIC (Reported) Lisinopril 40 MG TABLET 1 TAB PO DAILY HTN (Reported) Lovastatin 20 MG TABLET 1 TAB PO DAILY cholesterol (Reported) Magnesium Hydroxide (Milk Of Magnesia) 400 MG/5 ML ORAL.SUSP 30 ML PO Q3D PRN CONSTIPATION (Reported) Melatonin (Unknown Strength) TABLET 5 MG PO QPM SLEEP (Reported) Metformin HCl 500 MG TABLET 1 TAB PO BID DM II (Reported) Na Phos,M-B/Na Phos,Di-Ba (Fleet Enema) 19 GRAM-7 GRAM/118 ML ENEMA 1 E RC DAILY PRN CONSTIPATION (Reported) Naloxone HCl (Narcan) 4 MG/ACTUATION SPRAY 4 MG CHANCE AD PRN OPIOID INDUCED RESP. DEPRESSIO (Reported) Sennosides (Senna) 8.6 MG TABLET 2 TAB PO DAILY PRN CONSTIPATION (Reported) Current Medications: Current Medications Sig/Angela Start time Last Medication Dose Route Stop Time Status Admin Acetaminophen 650 MG Q6P PRN 08/18 2200 AC PO Amlodipine Besylate 5 MG DAILY 08/19 1000 AC 08/20 PO 0845 Aspirin Buffered 81 MG DAILY 08/19 1000 AC 08/20 PO 0851 Atorvastatin Calcium 5 MG 1700 08/19 1700 AC 08/20 PO 1749 Ceftriaxone Sodium 1,000 MG DAILY 08/19 1345 DC 08/20 IV 1247 Escitalopram Oxalate 10 MG DAILY 08/19 1000 AC 08/20 PO 0845 Gabapentin 100 MG Q12P PRN 08/18 2315 AC PO Heparin Sodium 5,000 UNIT Q8 08/18 2200 AC 08/21 (Porcine) SC 0525 Hydromorphone HCl 1 MG ONCE ONE 08/20 0845 DC 08/20 IV 08/20 0846 0849 Ibuprofen 600 MG Q6P PRN 08/18 2200 AC PO Insulin Aspart 0 TIDAC 08/20 0800 AC SC Insulin Detemir 34 UNITS BID 08/18 2200 AC 08/20 SC 2214 Lactobacillus 1 CAP DAILY 08/19 1000 AC 08/20 Acidophilus PO 0845 Lisinopril 40 MG DAILY 08/19 1000 AC 08/20 PO 0846 Magnesium Hydroxide 30 ML Q3D PRN 08/18 2145 AC PO Melatonin 5 MG AT BEDTIME 08/18 2200 AC 08/20 PO 2215 Metronidazole 500 MG IQ8 08/19 0000 DC 08/20 N/A 1 UNIT IV 0844 Morphine Sulfate 2 MG Q4P PRN 08/18 2200 AC 08/21 IV 0616 Non-Formulary 0 SEE ADMIN CRITERIA 08/20 1415 CAN Medication ANY Piperacillin Sod/ 4.5 GM Q6H 08/20 1600 AC 08/21 Tazobactam Sod IV 0411 Sodium Chloride 100 ML Senna/Docusate Sodium 2 TAB DAILY 08/19 1000 AC PO Sodium Hypochlorite 1 DANIELLE BID 08/20 0800 AC 08/20 TOP 2240 Tramadol HCl 50 MG .STK-MED ONE 08/20 1032 DC PO 08/20 1033 Past History Medical History Blood Transfusion Hx: No Neurological: NONE EENT: NONE Cardiovascular: hypertension, hyperlipidemia, PVD Respiratory: NONE Gastrointestinal: C. 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 MOTHER (diverticulitis). BROTHER (diabetes). Relation not specified for: FH: diabetes mellitus Psychosocial History Where Do You Live? Home Who Do You Live With? significant other Services at Home: None Primary Language: Wallisian Smoking Status: Never Smoked Functional Ability ADLs Independent: dressing, eating, toileting, bathing. Review of Systems Review of Systems Constitutional: Denies: no symptoms. EENTM: Denies: no symptoms. Cardiovascular: Denies: no symptoms. Respiratory: Denies: no symptoms. GI: Reports: bloating. Genitourinary: Reports: frequency (pt with hassan). Exam & Diagnostic Data Vital Signs and I&O Vital Signs Date Time Temp Pulse Resp B/P B/P Pulse O2 O2 Flow FiO2 Mean Ox Delivery Rate 08/21 0629 98.2 85 18 140/76 97 Room Air 08/20 2206 99.1 80 18 134/80 94 Room Air 08/20 1359 98.8 78 18 120/60 98 Room Air 08/20 0846 120/74 08/20 0845 120/74 Intake & Output 08/21 1600 16 0800 08/21 0000 08/20 1600 08/20 0800 15 0000 Intake Total 400 1400 250 350 Output Total 650 600 900 950 Balance -250 800 -650 -600 Intake, IV 150 350 Intake, Oral 400 1400 100 Output, Urine 650 600 900 950 Physical Exam General Appearance: well developed/nourished, obese Head: atraumatic Eyes: Bilateral: normal appearance. Neck: normal inspection Respiratory: normal breath sounds Cardiovascular: regular rate/rhythm Gastrointestinal: normal bowel sounds Back: no vertebral tenderness Extremities: LE amputation Neurologic/Psych: no motor/sensory deficits, awake, alert, oriented x 3 Reproductive: hidden penis Last 24 Hours of Labs: Laboratory Tests 08/24 0655 Chemistry Sodium (137 - 145 mmol/L) 141 Potassium (3.5 - 5.1 mmol/L) 3.8 Chloride (98 - 107 mmol/L) 101 Carbon Dioxide (22 - 30 mmol/L) 32 H Anion Gap (5 - 16) 8 BUN (9 - 20 mg/dL) 3 L Creatinine (0.7 - 1.2 mg/dL) 0.4 L Estimated GFR (>60 ml/min) > 60 BUN/Creatinine Ratio (7 - 25 %) 7.5 Coagulation PT Pending INR Pending Imaging Results: PATIENT: ALF JUAREZ PRESENT AGE: 46 PATIENT ACCOUNT NO: [id number] : 68 LOCATION: [facility] ORDERING PHYSICIAN: WALDEMAR HAYES MD SERVICE DATE: 08/18/160 EXAM TYPE: CAT - CT ABD & PELVIS W IV CONTRAST EXAMINATION: CT ABDOMEN AND PELVIS WITH CONTRAST CLINICAL INFORMATION: Defect and rectal mucosa with protruding stool. Pain. COMPARISON: 07/28/2016 TECHNIQUE: Multidetector volumetric imaging was performed of the abdomen and pelvis before and after the IV administration of 98 mL of Optiray 320 intravenous contrast. Sagittal and coronal reformatted images were obtained on the technologist's workstation. DLP: 1615 mGy-cm FINDINGS: LUNG BASES: Minimal left basilar linear atelectasis. The visualized cardiac structures are unremarkable. LIVER, GALLBLADDER, AND BILIARY TREE: The liver is normal in size, shape, and attenuation. No focal hepatic lesion or biliary ductal dilatation is present. The gallbladder is unremarkable with no evidence of radiopaque gallstones, gallbladder wall thickening, or obvious pericholecystic inflammatory changes. PANCREAS: Unremarkable. SPLEEN: Unremarkable. ADRENAL GLANDS: Unremarkable. KIDNEYS AND URETERS: The kidneys are normal in size, shape, and attenuation. There is mild left hydronephrosis. Mild dilatation of the left ureter. Bilateral mild perinephric stranding is similar to prior. Mild stranding along the course of the ureter is increased. No calculi. BLADDER: Unremarkable. GASTROINTESTINAL TRACT: The stomach and small bowel are unremarkable. No dilated loops of bowel or evidence of obstruction. There is no colonic wall thickening or inflammatory change. No free air or free fluid. ABDOMINAL WALL: No significant hernia seen. There is an abnormality along the left gluteal cleft with heterogeneous material internally. This is nonspecific. This may represent packing associated with a perianal fistula. The appearance is not typical for stool components, although that is not excluded. This area measures 6.2 x 3.5 x 5.6 cm. It extends to the posterior skin surface from the perianal region. LYMPH NODES: Normal. VASCULAR: Unremarkable. PELVIC VISCERA: The prostate and seminal vesicles are unremarkable. OSSEOUS STRUCTURES: Bilateral pars defects at L4 with grade 1 anterolisthesis of L4 on L5. Degenerative changes of the spine and hips. IMPRESSION: 1. Abnormal appearance along the left gluteal cleft is possibly associated with a left perianal fistula extending to the posterior skin surface. The internal material could represent packing. Alternatively if not packing, this may represent stool components. Unremarkable appearance of the bowel. 2. Increased left hydronephrosis. Increased periureteral stranding. No calculi. Similar appearance of bilateral perinephric stranding. Assessment/Plan Assessment/Plan pt with perneal/richard recta abscess with early extension to scrotum: to be debrided by Gen Surgery and will receive IV abx-scrotal involvement will diminish significantly with this current plan. Copies To: JOSELIN PERKINS,DAVID Consult Acknowledgment - Thank you for your consult request. Attending MD Review Statement Attending Statement Attending MD Statement: examined this patient Attending Assessment/Plan: Scrotal involvement with abscess improved with richard-recal debridement and abx: hassan to stay until pt much more capable of voiding into urinal without spill as this will exacerbate the current perineal abscess/gangrene.
[2016-08-21 09:13] LABS: ABSOLUTE BASOPHIL COUNT 0 /CUMM (0.0-0.2); ABSOLUTE EOSINOPHIL COUNT 0.4 /CUMM (0.0-0.7); ABSOLUTE GRANULOCYTE CT 6.8 /CUMM (1.4-6.5); ABSOLUTE LYMPH COUNT 1.3 /CUMM (1.2-3.4); ABSOLUTE MONOCYTE COUNT 0.9 /CUMM (0.10-0.60); BASOPHIL % 0.2 % (0.0-2.0); EOSINOPHIL % 4.7 % (0-5); HEMATOCRIT 26.3 % (42-52); MEAN CORPUSCULAR HGB 27.4 PG (27.0-31.0); MEAN CORPUSCULAR HGB CONC 33.2 G/DL (33.0-37.0); MEAN CORPUSCULAR VOLUME 82.6 FL (80.0-94.0); MEAN PLATELET VOLUME 7.4 FL (7.4-10.4); PLATELET COUNT 468 /CUMM (130-400); RED BLOOD CELL CT 3.18 /CUMM (4.70-6.10); WHITE BLOOD CELL COUNT 9.4 /CUMM (4.8-10.8)
--- NOTE | 2016-08-21 10:50 | PN- General Surgery ---
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 Hygiene and wound soiling is going to be a major issue. I believe this patient would benefit from fecal diversion. Patient is reluctant. For now we will continue aggressive wound care. We will likely do Second Look of the wound and with washout and a debridment in the operating room on Wednesday
--- NOTE | 2016-08-21 11:57 | PN- Infect Dx ---
Subjective Subjective: Afebrile. He feels improved but had significant pain with a bowel movement earlier today. Objective Last 24 Hrs of Vital Signs/I&O Vital Signs Date Time Temp Pulse Resp B/P B/P Pulse O2 O2 Flow FiO2 Mean Ox Delivery Rate 08/21 0928 112/74 08/21 0927 112/74 08/21 0629 98.2 85 18 140/76 97 Room Air 08/20 2206 99.1 80 18 134/80 94 Room Air 08/20 1359 98.8 78 18 120/60 98 Room Air Intake & Output 08/21 1600 08/21 0800 08/21 0000 Intake Total 500 400 Output Total 450 650 Balance 50 -250 Intake, IV 200 Intake, Oral 300 400 Number 1 Bowel Movements Output, Urine 450 650 Physical Exam Other Physical Findings: He appears comfortable but tearful and emotional regarding his situation Back dressing intact, with wound reportedly revealing significant fecal soilage, but appearing clean after this was removed with minimal remaining eschar reported Results Last 24 Hours of Lab Results: Laboratory Tests 08/21 0815 Chemistry Sodium (137 - 145 mmol/L) 139 Potassium (3.5 - 5.1 mmol/L) 3.8 Chloride (98 - 107 mmol/L) 101 Carbon Dioxide (22 - 30 mmol/L) 28 Anion Gap (5 - 16) 10 BUN (9 - 20 mg/dL) 4 L Creatinine (0.7 - 1.2 mg/dL) 0.4 L Estimated GFR (>60 ml/min) > 60 BUN/Creatinine Ratio (7 - 25 %) 10.0 Hematology CBC w Diff NO MAN DIFF REQ WBC (4.8 - 10.8 /CUMM) 9.4 RBC (4.70 - 6.10 /CUMM) 3.18 L Hgb (14.0 - 18.0 G/DL) 8.7 L Hct (42 - 52 %) 26.3 L MCV (80.0 - 94.0 FL) 82.6 MCH (27.0 - 31.0 PG) 27.4 RDW (11.5 - 14.5 %) 16.0 H Plt Count (130 - 400 /CUMM) 468 H MPV (7.4 - 10.4 FL) 7.4 Gran % (42.2 - 75.2 %) 72.0 Lymphocytes % (20.5 - 51.1 %) 13.8 L Monocytes % (1.7 - 9.3 %) 9.3 Eosinophils % (0 - 5 %) 4.7 Basophils % (0.0 - 2.0 %) 0.2 Absolute Granulocytes (1.4 - 6.5 /CUMM) 6.8 H Absolute Lymphocytes (1.2 - 3.4 /CUMM) 1.3 Absolute Monocytes (0.10 - 0.60 /CUMM) 0.9 H Absolute Eosinophils (0.0 - 0.7 /CUMM) 0.4 Absolute Basophils (0.0 - 0.2 /CUMM) 0 PUBS MCHC (33.0 - 37.0 G/DL) 33.2 Last 24 Hours of Ramin Results: OR cultures August 19 labeled perirectal abscess and perirectal tissue positive for Group B strep, Enterococcus sensitive to Ampicillin, Escherichia coli sensitive to all antibiotics tested, Klebsiella pneumoniae resistant to Ampicillin and Proteus sensitive to all antibiotics tested Blood cultures 2 August 18 negative Assessment/Plan Impression: Improved with temperatures and white blood cell count now normal status post I&D of a perirectal abscess 2 days ago with OR cultures positive for multiple organisms including Group B strep, Enterococcus and multiple gram negative rods, all of which are quite sensitive; therefore the Zosyn, which he is currently on, can be narrowed. Surgical comments regarding return to the OR next week for further washout and debridement and possible need for fecal diversion noted. The candiduria is of unclear significance and would not treat at this time. Suggestion: 1. Await return to the OR next week, with possible fecal diversion per Colorectal surgery 2. Remove Jose catheter as soon as feasible 3. Follow-up final OR cultures 4. Discontinue Zosyn 5. Begin Unasyn 3 g IV every 6 hours
[2016-08-21 15:23] VITALS: BP 142/80
--- NOTE | 2016-08-21 16:01 | NUR ---
PT DOWN TO CAT SCAN AT THIS TIME
--- NOTE | 2016-08-21 17:33 | Transfer of Care Summary ---
Hospital Course Course Hospital Course: 46-year-old man with past medical history significant for hypertension, insulin- dependent diabetes mellitus, and peripheral vascular disease, Group B strep sepsis secondary to a gangrenous right great toe status post amputation and 1 month course of Unasyn, osteomyelitis status post right BKA came to emergency department for chief complaint of one-week history of perirectal pain that is progressive and aggravated with sitting and bowel movement. Vitals on admission, patient was febrile to 102.2. Laboratory data showed leukocytosis of 20,000. CT of the abdomen and pelvis showed Abnormal appearance along the left gluteal cleft is possibly associated with a left perianal fistula extending to the posterior skin surface and Increased left hydronephrosis. Increased periureteral stranding. No calculi. Similar appearance of bilateral perinephric stranding. Patient was admitted on general medicine floor for the management of following problems Perianal abscess status post debridement Surgical consult was obtained and patient was evaluated by surgical team. Patient underwent examination under anesthesia and debridment. ID consult was placed as patient was recently treated for urinary tract infection in the facility and also a few papules were noticed on patient's upper extremity. As per ID recommendation antibiotics were switched from ciprofloxacin and metronidazole to metronidazole and ceftriaxone. After OR cultures grew Group B strep, Enterococcus and gram-negative rods, antibiotics were switched as per ID recommendation to Zosyn and metronidazole and ceftriaxone was discontinued. Zosyn was also discontinued and it was switched to IV Unasyn based on the sensitivity results. General surgery is planning for second Look of the wound and with washout and a debridment in the operating room on Wednesday. Patient might need a diverting stoma because of persistent fecal soilage. Possible second look surgery on Wednesday Positive urine culture for yeast UA sample is not great as it contains a lot of epithelial cells. Urine culture growing yeast, most likely colonization. Left hydronephrosis Although patient has increased his left hydronephrosis on CAT scan, his renal function tests are within acceptable limit. Urology consult was placed and recommendations were followed. History of diabetes mellitus Accu-Cheks were done on regular basis and patient was on insulin sliding scale. Patient was full code Patient was on heparin for DVT prophylaxis Patient was on diabetic diet Assessment/Plan: See above
[2016-08-21 22:50] VITALS: BP 128/60
[2016-08-22 08:04] LABS: ABSOLUTE BASOPHIL COUNT 0 /CUMM (0.0-0.2); ABSOLUTE EOSINOPHIL COUNT 0.6 /CUMM (0.0-0.7); ABSOLUTE GRANULOCYTE CT 7.1 /CUMM (1.4-6.5); ABSOLUTE LYMPH COUNT 1.5 /CUMM (1.2-3.4); ABSOLUTE MONOCYTE COUNT 0.9 /CUMM (0.10-0.60); BASOPHIL % 0.2 % (0.0-2.0); EOSINOPHIL % 6.3 % (0-5); GRANULOCYTE % 69.8 % (42.2-75.2); HEMATOCRIT 27.4 % (42-52); MEAN CORPUSCULAR HGB 27.7 PG (27.0-31.0); MEAN CORPUSCULAR HGB CONC 32.9 G/DL (33.0-37.0); MEAN CORPUSCULAR VOLUME 84.4 FL (80.0-94.0); MEAN PLATELET VOLUME 7.6 FL (7.4-10.4); PLATELET COUNT 457 /CUMM (130-400); RBC DISTRIBUTION WIDTH 16.6 % (11.5-14.5); RED BLOOD CELL CT 3.24 /CUMM (4.70-6.10); WHITE BLOOD CELL COUNT 10.2 /CUMM (4.8-10.8)
[2016-08-22 08:40] VITALS: BP 132/68
--- NOTE | 2016-08-22 09:50 | PN- Att Addend ---
Attending Addendum Attending Brief Note Patient seen and examined. He feels very overwhelmed and is very emotional about everything that's going on. He is reluctant to talk about the whole diverting colostomy issue and says he deferred it off until the OR procedure on Wednesday. On exam he is afebrile, blood pressure is 130/60, pulse is 78 saturating at 99% . Awake alert oriented, lungs are clear to auscultation, heart is S1-S2 regular, abdomen is soft he's had the right BKA that's dressed and the perirectal area that's all dressed. Labs reviewed and his white count is 10,000. ID recommendations reviewed. He is a 46-year-old with diabetes, peripheral vascular disease and recent right below-knee amputation who is here with samir's gangrene and a perirectal abscess status post debridement. Polymicrobial nature of the organisms and is on Unasyn per ID with plan for OR on Wednesday to debride further. Reina is concerned about fecal soilage of the wound and is recommending a diverting colostomy but patient needs time to think about this.
--- NOTE | 2016-08-22 11:15 | PN- Housestaff ---
See Addendum Subjective Follow-up For: Perirectal abscess Carolina's gangrene Left hydronephrosis Complaints: Perineal pain Subjective: Patient complains of pain in his perineal region. He denies fevers, chills or malaise. He denies abdominal pain. Review of Systems Constitutional: Denies: chills, fever, malaise. Cardiovascular: Denies: chest pain, orthopena, palpitations. Respiratory: Denies: cough, short of breath, sputum production. Gastrointestinal: Denies: diarrhea, nausea. Genitourinary: Denies: dysuria, hematuria. Objective Last 24 Hrs of Vital Signs/I&O Vital Signs Date Time Temp Pulse Resp B/P B/P Pulse O2 O2 Flow FiO2 Mean Ox Delivery Rate 08/22 1400 98.1 74 16 138/66 99 Room Air 08/22 0840 97.6 71 18 132/68 99 Room Air 08/22 0831 71 132/68 08/22 0830 71 132/68 08/21 2250 99.2 90 20 128/60 94 Room Air Intake & Output 08/22 1600 08/22 0800 08/22 0000 Intake Total 1620 Output Total 2300 620 Balance -680 -620 Intake, IV 120 Intake, Oral 1500 Number 1 Bowel Movements Output, Urine 2300 620 Patient 255 lb Weight Physical Exam General Appearance: Alert, Oriented X3, Cooperative, No Acute Distress Skin: No Rashes Skin Temp/Moisture Exam: Warm/Dry Sepsis Skin Exam (color): Normal for Ethnicity HEENT: Atraumatic, EOMI, Mucous Membr. moist/pink Neck: Supple, No JVD, No thryomegaly Lymphatic: Cervical nl Cardiovascular: Regular Rate, Normal S1, Normal S2, No Murmurs Lungs: Clear to Auscultation, Normal Air Movement Abdomen: Normal Bowel Sounds, Soft, No Tenderness, No Hepatospenomegaly Extremities: Right BKA dressing intact Current Medications: Current Medications Sig/Angela Start time Last Medication Dose Route Stop Time Status Admin Acetaminophen 650 MG Q6P PRN 08/18 2200 AC PO Amlodipine Besylate 5 MG DAILY 08/19 1000 AC 08/22 PO 0830 Ampicillin Sodium/ 3,000 MG Q6 08/21 1200 AC 08/22 Sulbactam Sodium IV 1713 Sodium Chloride 100 ML Aspirin Buffered 81 MG DAILY 08/19 1000 AC 08/22 PO 0830 Atorvastatin Calcium 5 MG 1700 08/19 1700 AC 08/22 PO 1713 Escitalopram Oxalate 10 MG DAILY 08/19 1000 AC 08/22 PO 0830 Gabapentin 100 MG Q12P PRN 08/18 2315 AC PO Heparin Sodium 5,000 UNIT Q8 08/18 2200 AC 08/22 (Porcine) SC 1404 Hydromorphone HCl 1 MG Q12P PRN 08/21 0930 AC 08/22 IV 1045 Ibuprofen 600 MG Q6P PRN 08/18 2200 AC PO Insulin Aspart 0 TIDAC 08/20 0800 AC SC Insulin Detemir 34 UNITS BID 08/18 2200 AC 08/22 SC 0837 Lactobacillus 1 CAP DAILY 08/19 1000 AC 08/22 Acidophilus PO 0831 Lisinopril 40 MG DAILY 08/19 1000 AC 08/22 PO 0831 Magnesium Hydroxide 30 ML Q3D PRN 08/18 2145 AC PO Melatonin 5 MG AT BEDTIME 08/18 2200 AC 08/21 PO 2127 Morphine Sulfate 2 MG Q4P PRN 08/18 2200 AC 08/22 IV 1636 Senna/Docusate Sodium 2 TAB DAILY 08/19 1000 AC PO Sodium Hypochlorite 1 DANIELLE BID 08/20 0800 AC 08/22 TOP 1717 Last 24 Hrs of Lab/Ramin Results Last 24 Hrs of Labs/Mics: Laboratory Tests 08/22/16 0618: Anion Gap 9, Estimated GFR > 60, BUN/Creatinine Ratio 8.0, CBC w Diff NO MAN DIFF REQ, RBC 3.24 L, MCV 84.4, MCH 27.7, RDW 16.6 H, MPV 7.6, Gran % 69.8, Lymphocytes % 14.6 L, Monocytes % 9.1, Eosinophils % 6.3 H, Basophils % 0.2, Absolute Granulocytes 7.1 H, Absolute Lymphocytes 1.5, Absolute Monocytes 0.9 H, Absolute Eosinophils 0.6, Absolute Basophils 0, PUBS MCHC 32.9 L Assessment/Plan Assessment: 46-year-old man with past medical history significant for hypertension, insulin- dependent diabetes mellitus, and peripheral vascular disease, Group B strep sepsis secondary to a gangrenous right great toe status post amputation and 1 month course of Unasyn, osteomyelitis status post right BKA came to emergency department for chief complaint of one-week history of perirectal pain that is progressive and aggravated with sitting and bowel movement. Vitals on admission, patient was febrile to 102.2. Laboratory data showed leukocytosis of 20,000. CT of the abdomen and pelvis showed Abnormal appearance along the left gluteal cleft is possibly associated with a left perianal fistula extending to the posterior skin surface and Increased left hydronephrosis. Increased periureteral stranding. No calculi. Similar appearance of bilateral perinephric stranding. Patient was admitted on general medicine floor for the management of following problems 1. Perianal abscess Surgical consult was obtained and patient was evaluated by surgical team. Patient underwent examination under anesthesia and debridment. ID consult was placed as patient was recently treated for urinary tract infection in the facility and also a few papules were noticed on patient's upper extremity. UA sample is not great as it contains a lot of epithelial cells. Urine culture growing yeast, most likely colonization. As per ID recommendation antibiotics were switched from ciprofloxacin and metronidazole to metronidazole and ceftriaxone. OR cultures grew Group B strep, Enterococcus and gram-negative rods, and antibiotics were switched as per ID recommendation to Zosyn and metronidazole and ceftriaxone was discontinued. Zosyn has been discontinued and it was switched to IV Unasyn based on the sensitivity results. His WBC is 10.2. General surgery is planning for second Look of the wound and with washout and a debridment in the operating room on Wednesday. Patient might need a diverting stoma because of persistent fecal soilage. We'll keep the patient nothing by mouth Wednesday night 2. Left hydronephrosis Although patient has increased his left hydronephrosis on CAT scan, his renal function tests are within acceptable limit. 3. History of diabetes mellitus Accu-Cheks TIDAC Novolog sliding scale TIDAC Levemir 34 units BID Patient is full code Patient is on heparin for DVT prophylaxis Patient is on diabetic diet Problem List: 1. Perirectal abscess 2. Diabetes mellitus Pain Ratin Pain Location: Amber-rectal area Pain Goal: Pain 4 or less Pain Plan: Dilaudid premedication before dressing change Tomorrow's Labs & Rationales: CBC to follow white count BEP to follow renal function DVT/Prophylaxis: mechanical
--- NOTE | 2016-08-22 11:30 | PN- General Surgery ---
Surgical Brief Attending Note Brief Attending Note: Pt is tolerating movement and wound care much better. His leukocytosis is improved since admission. Wound is generally clean, but gets soiled by stool, especially in its inferior aspect. Dressing changed. A/P: A 46 year-old man with diabetes and recent right BKA s/p debridement of Carolina's gangrene -- Cont. IV antibiotics - Cont. local wound care - Patient is scheduled for additional debridement on 08/24/16 - Patient may need a diverting ostomy to avoid wound contamination and soilage, but he needs more time to process the information and make his decision
[2016-08-22 14:00] VITALS: BP 138/66
[2016-08-22 22:42] VITALS: BP 136/80
[2016-08-23 06:24] VITALS: BP 144/78
[2016-08-23 08:24] LABS: ABSOLUTE BASOPHIL COUNT 0 /CUMM (0.0-0.2); ABSOLUTE EOSINOPHIL COUNT 0.6 /CUMM (0.0-0.7); ABSOLUTE GRANULOCYTE CT 7.7 /CUMM (1.4-6.5); ABSOLUTE LYMPH COUNT 1.7 /CUMM (1.2-3.4); ABSOLUTE MONOCYTE COUNT 0.8 /CUMM (0.10-0.60); BASOPHIL % 0.1 % (0.0-2.0); EOSINOPHIL % 5.2 % (0-5); GRANULOCYTE % 71.8 % (42.2-75.2); MEAN CORPUSCULAR HGB 27.7 PG (27.0-31.0); MEAN CORPUSCULAR HGB CONC 32.7 G/DL (33.0-37.0); MEAN CORPUSCULAR VOLUME 84.7 FL (80.0-94.0); MEAN PLATELET VOLUME 7.4 FL (7.4-10.4); PLATELET COUNT 474 /CUMM (130-400); RBC DISTRIBUTION WIDTH 16.8 % (11.5-14.5); RED BLOOD CELL CT 3.31 /CUMM (4.70-6.10); WHITE BLOOD CELL COUNT 10.8 /CUMM (4.8-10.8)
--- NOTE | 2016-08-23 08:38 | PN- Housestaff ---
GHULAM PERKINS,[facility] 08/23/16 0838: Subjective Follow-up For: Perianal abscess Samir's gangrene Left hydronephrosis Complaints: Perirectal pain 4/10 intensity Subjective: Mr. Wilburn states that his perianal pain is improved and is 4/10 intensity. He denies fevers, chills or malaise. He denies abdominal pain. Review of Systems Constitutional: Denies: chills, fever, malaise. Cardiovascular: Denies: chest pain, orthopena, palpitations, syncope. Respiratory: Denies: cough, short of breath, sputum production. Gastrointestinal: Denies: abdominal pain, diarrhea, nausea, vomiting. Genitourinary: Denies: dysuria, hematuria. Objective Last 24 Hrs of Vital Signs/I&O Vital Signs Date Time Temp Pulse Resp B/P B/P Pulse O2 O2 Flow FiO2 Mean Ox Delivery Rate 08/23 0904 86 138/78 08/23 0904 86 138/78 08/23 0624 98.3 87 18 144/78 96 Room Air 08/22 2242 98.7 83 19 136/80 96 Room Air Intake & Output 08/23 1600 08/23 0800 08/23 0000 Intake Total 500 400 300 Output Total 400 1850 Balance 100 -1450 300 Intake, IV 200 Intake, Oral 500 200 300 Output, Urine 400 1850 Physical Exam General Appearance: Alert, Oriented X3, Cooperative, No Acute Distress Skin: No Rashes Skin Temp/Moisture Exam: Warm/Dry Sepsis Skin Exam (color): Normal for Ethnicity HEENT: Atraumatic, PERRLA, EOMI, Mucous Membr. moist/pink Neck: Supple, No JVD, No thryomegaly Lymphatic: Cervical nl Cardiovascular: Regular Rate, Normal S1, Normal S2, No Murmurs Lungs: Clear to Auscultation, Normal Air Movement Abdomen: Normal Bowel Sounds, Soft, No Tenderness, No Hepatospenomegaly Neurological: Normal Speech, Normal Tone Extremities: Right BKA dressing clean and intact Current Medications: Current Medications Sig/Angela Start time Last Medication Dose Route Stop Time Status Admin Acetaminophen 650 MG Q6P PRN 08/18 2200 AC PO Amlodipine Besylate 5 MG DAILY 08/19 1000 AC 08/23 PO 0904 Ampicillin Sodium/ 3,000 MG Q6 08/21 1200 AC 08/23 Sulbactam Sodium IV 1118 Sodium Chloride 100 ML Aspirin Buffered 81 MG DAILY 08/19 1000 AC 08/23 PO 0904 Atorvastatin Calcium 5 MG 1700 08/19 1700 AC 08/22 PO 1713 Escitalopram Oxalate 10 MG DAILY 08/19 1000 AC 08/23 PO 0904 Gabapentin 100 MG Q12P PRN 08/18 2315 AC 08/23 PO 1016 Heparin Sodium 5,000 UNIT Q8 08/18 2200 AC 08/23 (Porcine) SC 0541 Hydromorphone HCl 1 MG Q12P PRN 08/21 0930 AC 08/23 IV 0758 Ibuprofen 600 MG Q6P PRN 08/18 2200 AC PO Insulin Aspart 0 TIDAC 08/20 0800 AC 08/23 SC 08/23 2300 1243 Insulin Detemir 17 UNITS BID 08/24 2200 SC Insulin Detemir 34 UNITS BID 08/18 2200 DC 08/23 TN 0905 Insulin Human Regular 0 Q6 08/23 2359 SC Lactobacillus 1 CAP DAILY 08/19 1000 AC 08/23 Acidophilus PO 0904 Lisinopril 40 MG DAILY 08/19 1000 AC 08/23 PO 0904 Magnesium Hydroxide 30 ML Q3D PRN 08/18 2145 AC PO Melatonin 5 MG AT BEDTIME 08/18 2200 AC 08/22 PO 2037 Morphine Sulfate 2 MG Q4P PRN 08/18 2200 AC 08/23 IV 1015 Nystatin 1 DANIELLE BID 08/23 1110 08/23 TOP 1244 Senna/Docusate Sodium 2 TAB DAILY 08/19 1000 PO Sodium Hypochlorite 1 DANIELLE BID 08/20 0800 08/23 TOP 0905 Last 24 Hrs of Lab/Ramin Results Last 24 Hrs of Labs/Mics: Laboratory Tests 08/23/16 0714: Anion Gap 10, Estimated GFR > 60, BUN/Creatinine Ratio 10.0 08/23/16 0704: CBC w Diff NO MAN DIFF REQ, RBC 3.31 L, MCV 84.7, MCH 27.7, RDW 16.8 H, MPV 7.4, Gran % 71.8, Lymphocytes % 15.4 L, Monocytes % 7.5, Eosinophils % 5.2 H, Basophils % 0.1, Absolute Granulocytes 7.7 H, Absolute Lymphocytes 1.7, Absolute Monocytes 0.8 H, Absolute Eosinophils 0.6, Absolute Basophils 0, PUBS MCHC 32.7 L Assessment/Plan Assessment: 46-year-old man with past medical history significant for hypertension, insulin- dependent diabetes mellitus, and peripheral vascular disease, Group B strep sepsis secondary to a gangrenous right great toe status post amputation and 1 month course of Unasyn, osteomyelitis status post right BKA came to emergency department for chief complaint of one-week history of perirectal pain that is progressive and aggravated with sitting and bowel movement. Vitals on admission, patient was febrile to 102.2. Laboratory data showed leukocytosis of 20,000. CT of the abdomen and pelvis showed Abnormal appearance along the left gluteal cleft is possibly associated with a left perianal fistula extending to the posterior skin surface and Increased left hydronephrosis. Increased periureteral stranding. No calculi. Similar appearance of bilateral perinephric stranding. Patient was admitted on general medicine floor for the management of following problems 1. Perianal abscess Surgical consult was obtained and patient was evaluated by surgical team. Patient underwent examination under anesthesia and debridment. ID consult was placed as patient was recently treated for urinary tract infection in the facility and also a few papules were noticed on patient's upper extremity. UA sample is not great as it contains a lot of epithelial cells. Urine culture growing yeast, most likely colonization. As per ID recommendation antibiotics were switched from ciprofloxacin and metronidazole to metronidazole and ceftriaxone. OR cultures grew Group B strep, Enterococcus and gram-negative rods, and antibiotics were switched as per ID recommendation to Zosyn and metronidazole and ceftriaxone was discontinued. Zosyn has been discontinued and it was switched to IV Unasyn based on the sensitivity of organisms identified in OR cultures (Proteus Mirabilis, E Coli, Klebsiella Pneumoniae, Enterococcus, anerobes and Beta Strep Group B). His WBC is 10.8 today. General surgery is planning for second Look of the wound and with washout and a debridment in the operating room on Wednesday. Patient might need a diverting stoma because of persistent fecal soilage. However, despite counselling he is still not sure if he wants this procedure. We'll keep the patient nothing by mouth tonight. 2. Left hydronephrosis Although patient has mild left hydronephrosis on CAT scan, his renal function tests are within acceptable limit. Creatine this morning is 0.3. 3. History of diabetes mellitus Continue Accu-Cheks TIDAC Continue Novolog sliding scale TIDAC Continue Levemir 34 units BID We will change his levemir dose to 17 units BID tonight and start Novolog sliding scale tonight in anticipation of surgery tomorrow. Patient is full code Patient is on heparin for DVT prophylaxis Patient is on diabetic diet Problem List: 1. Diabetes mellitus Pain Ratin Pain Location: Perianal region Pain Goal: Pain 4 or less Pain Plan: Dilaudid premedication before dressing change Tomorrow's Labs & Rationales: CBC for Potassium DVT/Prophylaxis: mechanical, pharmacological ASH WINKLER MD 08/23/16 0840: Attending MD Review Statement Attending Statement Attending MD Statement: examined this patient, discuss w/resident/PA/SOW MANAGER, agreed w/resident/PA/SOW MANAGER, reviewed EMR data (avail), discussed with nursing Attending Assessment/Plan: Patient appears to be in slightly better spirits today as compared to yesterday. He still feels overwhelmed by the amount of information given and cannot decide about the diverting colostomy. He understands that he is going to the OR tomorrow for further debridement. He was treated for samir's gangrene and a perirectal abscess of polymicrobial nature now on IV Unasyn per ID. He has to be nothing by mouth after midnight and will have to cut his long-acting insulin in half and change to a nothing by mouth sliding scale in anticipation of the debridement tomorrow. He is diabetic with recent BKA.
--- NOTE | 2016-08-23 10:37 | PN- Infect Dx ---
Subjective Subjective: Afebrile. He continues to report pain with bowel movements, which are loose. He has been voiding well since removal of the Jose catheter. Objective Last 24 Hrs of Vital Signs/I&O Vital Signs Date Time Temp Pulse Resp B/P B/P Pulse O2 O2 Flow FiO2 Mean Ox Delivery Rate 08/23 0904 86 138/78 08/23 0904 86 138/78 18 0624 98.3 87 18 144/78 96 Room Air 08/22 2242 98.7 83 19 136/80 96 Room Air 08/22 1400 98.1 74 16 138/66 99 Room Air Intake & Output 08/23 1600 08/23 0800 08/23 0000 Intake Total 400 300 Output Total 1850 Balance -1450 300 Intake, IV 200 Intake, Oral 200 300 Output, Urine 1850 Physical Exam Other Physical Findings: He appears comfortable in no acute distress Abdomen is obese, soft, nontender with positive bowel sounds Results Last 24 Hours of Lab Results: Laboratory Tests 08/23 08/23 0714 0704 Chemistry Sodium (137 - 145 mmol/L) 139 Potassium (3.5 - 5.1 mmol/L) 4.4 Chloride (98 - 107 mmol/L) 102 Carbon Dioxide (22 - 30 mmol/L) 26 Anion Gap (5 - 16) 10 BUN (9 - 20 mg/dL) 3 L Creatinine (0.7 - 1.2 mg/dL) 0.3 L Estimated GFR (>60 ml/min) > 60 BUN/Creatinine Ratio (7 - 25 %) 10.0 Hematology CBC w Diff NO MAN DIFF REQ WBC (4.8 - 10.8 /CUMM) 10.8 RBC (4.70 - 6.10 /CUMM) 3.31 L Hgb (14.0 - 18.0 G/DL) 9.2 L Hct (42 - 52 %) 28.0 L MCV (80.0 - 94.0 FL) 84.7 MCH (27.0 - 31.0 PG) 27.7 RDW (11.5 - 14.5 %) 16.8 H Plt Count (130 - 400 /CUMM) 474 H MPV (7.4 - 10.4 FL) 7.4 Gran % (42.2 - 75.2 %) 71.8 Lymphocytes % (20.5 - 51.1 %) 15.4 L Monocytes % (1.7 - 9.3 %) 7.5 Eosinophils % (0 - 5 %) 5.2 H Basophils % (0.0 - 2.0 %) 0.1 Absolute Granulocytes (1.4 - 6.5 /CUMM) 7.7 H Absolute Lymphocytes (1.2 - 3.4 /CUMM) 1.7 Absolute Monocytes (0.10 - 0.60 /CUMM) 0.8 H Absolute Eosinophils (0.0 - 0.7 /CUMM) 0.6 Absolute Basophils (0.0 - 0.2 /CUMM) 0 PUBS MCHC (33.0 - 37.0 G/DL) 32.7 L Last 24 Hours of Ramin Results: OR cultures August 19 positive for Group B strep, Enterococcus, E. coli, Klebsiella, Proteus and mixed anaerobes Assessment/Plan Impression: Overall improved with temperatures and white blood cell count remaining normal on Unasyn now 4 days status post I&D of a perirectal abscess with OR cultures positive for multiple organisms including Group B strep, Enterococcus, multiple gram negative rods and anaerobes. He is scheduled for a return to the OR in the a.m. for further washout and debridement with surgical comments regarding the need to consider fecal diversion noted. The candiduria is of unclear significance and would not treat at this time. Suggestion: 1. Await return to the OR in the a.m. 2. Await decision regarding possible fecal diversion per Colorectal surgery 3. Continue Unasyn
--- NOTE | 2016-08-23 10:52 | PN- General Surgery ---
Surgical Brief Attending Note Brief Attending Note: Pt denies any new complaints. He is scheduled for additional I&D tomorrow. - NPO after MN - Cont. IV antibiotics - Management per primary service
[2016-08-23 15:11] VITALS: BP 140/70
[2016-08-23 22:24] VITALS: BP 110/60
[2016-08-24 06:30] VITALS: BP 136/88
--- NOTE | 2016-08-24 08:07 | NUR ---
0730 TO OR VIA STRETCHER.A&[email or web address] C/O NOTED.
[2016-08-24 08:19] LABS: PT 12.4 SEC (9.4-12.5)
--- NOTE | 2016-08-24 08:57 | Operative Report ---
Operative/Inv Procedure Report Surgery Date: 08/24/16 Name of Procedure: Washout and debridement of perineal wound Pre-Operative Diagnosis: Necrotizing perineal soft tissue infection Post-Operative Diagnosis: Same Estimated Blood Loss: less than 50ml Surgeon/Machine Woodworking Sander: Dr Sg DEL VALLES is doctor assistant Anesthesia: laryngeal mask airway Monitors: Per routine Drains: Wound packed with dilute Betadine soaked Kerlix roll Specimens: Necrotic tissue from base of wound Complications: None Condition: Good Operative Indication: This is a 46-year-old gentleman who is 5 days status post primary debridement of Carolina's gangrene. Today we are taking a second look at the wound to do debridement of any remaining necrotic tissue Operative/Procedure Note Note: The patient was taken into the operating room placed in the supine position on the operating room table. The patient underwent induction of general anesthesia placement of laryngeal mask airway. Was converted to lithotomy position in Mike stirrups. Great care was taken during positioning as the patient is a below-knee amputation of the right side. I made sure his BK stump was well-padded. The perineum was prepped and draped in usual fashion. The wound was carefully inspected. About 70% of the wound was covered in healthy beefy red granulation tissue. The other 30% of the wound was covered and a chronic fibrinous exudate. The wound was copiously pulse lavaged with a total of 6 L of sterile saline. Sharp debridement was performed with curette and also partially with electrocautery. Once the majority of the fibrous exudate was removed the packing was placed. The wound was packed with Kerlix gauze soaked in dilute Betadine. A bulky dressing was applied to the perineum. The patient tolerated the procedure well was extubated in operating room and taken recovery area in good condition Discharge Disposition: PACU
--- NOTE | 2016-08-24 09:10 | PN- Housestaff ---
KHRIS CRYSTAL MD,[facility] 08/24/16 0910: Subjective Follow-up For: Perirectal abscess Samir's gangrene Left hydronephrosis Complaints: no complaints Subjective: Patient was comfortably lying in the bed. He remained afebrile overnight. Review of Systems Constitutional: Denies: chills, fever. Cardiovascular: Denies: chest pain, palpitations. Respiratory: Denies: cough, short of breath. Gastrointestinal: Denies: abdominal pain, nausea, vomiting. Genitourinary: Denies: discharge. Objective Last 24 Hrs of Vital Signs/I&O Vital Signs Date Time Temp Pulse Resp B/P B/P Pulse O2 O2 Flow FiO2 Mean Ox Delivery Rate 08/24 1100 97.8 72 170/100 08/24 1059 97.8 72 20 170/100 08/24 1057 97.8 72 20 170/100 98 Room Air Room Air 08/24 0630 98.5 91 18 136/88 95 Room Air 08/23 2224 98.2 86 19 110/60 94 Room Air 08/23 1511 97.9 74 20 140/70 96 Intake & Output 08/24 1600 08/24 0800 08/24 0000 Intake Total 260 400 Output Total 1000 400 Balance -740 0 Intake, IV 260 150 Intake, Oral 0 250 Number 0 Bowel Movements Output, Urine 1000 400 Physical Exam General Appearance: Alert, Oriented X3, Cooperative, Mild Distress HEENT: Atraumatic Neck: Supple Cardiovascular: Regular Rate, Normal S1, Normal S2 Lungs: Clear to Auscultation, Normal Air Movement Abdomen: Normal Bowel Sounds, Soft, No Tenderness, PERIRECTAL AREA COVERED WITH SURGICAL DRESSING Extremities: RIGHT bka INTACT DRESSING Current Medications: Current Medications Sig/Angela Start time Last Medication Dose Route Stop Time Status Admin Acetaminophen 650 MG Q6P PRN 08/18 2200 AC PO Amlodipine Besylate 5 MG DAILY 08/19 1000 AC 08/24 PO 1100 Ampicillin Sodium/ 3,000 MG Q6 08/21 1200 AC 08/24 Sulbactam Sodium IV 1230 Sodium Chloride 100 ML Aspirin Buffered 81 MG DAILY 08/19 1000 AC 08/24 PO 1100 Atorvastatin Calcium 5 MG 1700 08/19 1700 AC 08/23 PO 1733 Escitalopram Oxalate 10 MG DAILY 08/19 1000 AC 08/24 PO 1100 Gabapentin 100 MG Q12P PRN 06/13 2315 AC 08/23 PO 1016 Heparin Sodium 5,000 UNIT Q8 08/18 2200 AC 08/24 (Porcine) SC 0511 Hydromorphone HCl 0.4 MG ONCE ONE 08/23 1615 DC 08/23 IV 08/23 1616 1608 Hydromorphone HCl 1 MG Q12P PRN 08/21 0930 AC 08/23 IV 2009 Ibuprofen 600 MG Q6P PRN 08/18 2200 AC PO Insulin Aspart 0 TIDAC 08/24 1200 AC SC Insulin Aspart 0 TIDAC 08/20 0800 DC 08/23 SC 08/23 2300 1243 Insulin Detemir 17 UNITS BID 08/24 2200 DC SC Insulin Detemir 8 UNITS BID 08/23 2200 AC 08/24 SC 1059 Insulin Human Regular 0 Q6 08/23 2359 DC SC Lactobacillus 1 CAP DAILY 08/19 1000 AC 08/24 Acidophilus PO 1100 Lisinopril 40 MG DAILY 08/19 1000 AC 08/24 PO 1059 Magnesium Hydroxide 30 ML Q3D PRN 08/18 2145 AC PO Melatonin 5 MG AT BEDTIME 08/18 2200 AC 08/23 PO 2033 Morphine Sulfate 2 MG Q4P PRN 08/18 2200 AC 08/24 IV 1113 Nystatin 1 DANIELLE BID 08/23 1110 AC 08/24 TOP 1105 Senna/Docusate Sodium 2 TAB DAILY 08/19 1000 AC PO Sodium Hypochlorite 1 DANIELLE BID 08/24 1000 AC TOP Sodium Hypochlorite 1 DANIELLE BID 08/20 0800 DC 08/23 TOP 2034 Last 24 Hrs of Lab/Ramin Results Last 24 Hrs of Labs/Mics: Laboratory Tests 08/24/16 0655: Anion Gap 8, Estimated GFR > 60, BUN/Creatinine Ratio 7.5, PT 12.4, INR 1.18 H Lines/Diet/Fluids Lines: peripheral lines Restraints: none Assessment/Plan Assessment: 46-year-old man with past medical history significant for hypertension, insulin- dependent diabetes mellitus, and peripheral vascular disease, Group B strep sepsis secondary to a gangrenous right great toe status post amputation and 1 month course of Unasyn, osteomyelitis status post right BKA came to emergency department for chief complaint of one-week history of perirectal pain that is progressive and aggravated with sitting and bowel movement. Vitals on admission, patient was febrile to 102.2. Laboratory data showed leukocytosis of 20,000. CT of the abdomen and pelvis showed Abnormal appearance along the left gluteal cleft is possibly associated with a left perianal fistula extending to the posterior skin surface and Increased left hydronephrosis. Increased periureteral stranding. No calculi. Similar appearance of bilateral perinephric stranding. Patient was admitted on general medicine floor for the management of following problems 1. Perianal abscess Surgical consult was obtained and patient was evaluated by surgical team. Patient underwent examination under anesthesia and debridment. ID consult was placed as patient was recently treated for urinary tract infection in the facility and also a few papules were noticed on patient's upper extremity. UA sample is not great as it contains a lot of epithelial cells. Urine culture growing yeast, most likely colonization. As per ID recommendation antibiotics were switched from ciprofloxacin and metronidazole to metronidazole and ceftriaxone. OR cultures grew Group B strep, Enterococcus and gram-negative rods, and antibiotics were switched as per ID recommendation to Zosyn and metronidazole and ceftriaxone was discontinued. Zosyn has been discontinued and it was switched to IV Unasyn based on the sensitivity of organisms identified in OR cultures (Proteus Mirabilis, E Coli, Klebsiella Pneumoniae, Enterococcus, anerobes and Beta Strep Group B). His WBC is 10.8 yesterday. General surgery did second Look with washout and a debridment for the Necrotizing perineal soft tissue infection in the operating room today. Patient might need a diverting stoma because of persistent fecal soilage. However, despite counselling he is still not sure if he wants this procedure. 2. Left hydronephrosis Although patient has mild left hydronephrosis on CAT scan, his renal function tests are within acceptable limit. Creatine this morning is 0.3. 3. History of diabetes mellitus Continue Accu-Cheks TIDAC Continue Novolog sliding scale TIDAC Continue Levemir 34 units BID We will continue his levemir dose of 8 units BID tonight and start Novolog sliding scale. Adjust the long-acting insulin to 17 units and eventually to 34 units as Accu- Cheks improve Patient is full code Patient is on heparin for DVT prophylaxis Patient is on diabetic diet Problem List: 1. Hyperlipidemia 2. Perirectal abscess Pain Ratin Pain Location: NA Pain Goal: Pain 4 or less Pain Plan: Pain management Tomorrow's Labs & Rationales: CBC for leukocytosis BEP renal function DVT/Prophylaxis: pharmacological MYLENE,MANIK 08/24/16 0915: Attending MD Review Statement Attending Statement Attending MD Statement: examined this patient, discuss w/resident/PA/STEEL MELTER, agreed w/resident/PA/STEEL MELTER, discussed with family, reviewed EMR data (avail), discussed with nursing, discussed with case mgmt, reviewed images, amended to note Attending Assessment/Plan: ASSESSMENT 1. POD#4 s/p debridement of samir gangrene 2. Left hydronephrosis and pernephric standing 3. Sepsis 2/2 above resolved 4. T2DM on oral hypoglycemics poorly controlled 5. PVD and h/o OM s/p amputation Plan - Admit to general medicine - abx as per ID, reviewed wound cultures - [facility] rectal Surgery consulted, plan for EUA and debridement. (second wash/look today) - Urology consulted for hydronephrosis - RISS and titrate insulin as needed. - Pain control adressed. optmising pain meds - Patient is low risk for low risk procedure, patient is medically stable for procedure.
[2016-08-24 10:57] VITALS: BP 170/100
--- NOTE | 2016-08-24 14:32 | PN- Infect Dx ---
Subjective Subjective: Afebrile. He offers no complaints. Objective Last 24 Hrs of Vital Signs/I&O Vital Signs Date Time Temp Pulse Resp B/P B/P Pulse O2 O2 Flow FiO2 Mean Ox Delivery Rate 08/24 1100 97.8 72 170/100 08/24 1059 97.8 72 20 170/100 08/24 1057 97.8 72 20 170/100 98 Room Air Room Air 08/24 0630 98.5 91 18 136/88 95 Room Air 08/23 2224 98.2 86 19 110/60 94 Room Air 08/23 1511 97.9 74 20 140/70 96 Intake & Output 08/24 1600 08/24 0800 08/24 0000 Intake Total 260 400 Output Total 1000 400 Balance -740 0 Intake, IV 260 150 Intake, Oral 0 250 Number 0 Bowel Movements Output, Urine 1000 400 Physical Exam Other Physical Findings: He appears comfortable in no acute distress Lungs are clear Abdomen is soft, nontender with positive bowel sounds Extremities status post right BKA with dressing intact Results Last 24 Hours of Lab Results: Laboratory Tests 08/24 0655 Chemistry Sodium (137 - 145 mmol/L) 141 Potassium (3.5 - 5.1 mmol/L) 3.8 Chloride (98 - 107 mmol/L) 101 Carbon Dioxide (22 - 30 mmol/L) 32 H Anion Gap (5 - 16) 8 BUN (9 - 20 mg/dL) 3 L Creatinine (0.7 - 1.2 mg/dL) 0.4 L Estimated GFR (>60 ml/min) > 60 BUN/Creatinine Ratio (7 - 25 %) 7.5 Coagulation PT (9.4 - 12.5 SEC) 12.4 INR (0.90 - 1.17) 1.18 H Last 24 Hours of Ramin Results: No new cultures Assessment/Plan Impression: Stable with temperatures and white blood cell count remaining normal on Unasyn status post washout and debridement of his perineal wound earlier today now 5 days status post I&D of a perirectal abscess with OR cultures positive for multiple organisms including Group B strep, Enterococcus, multiple gram negative rods and anaerobes. Surgical comments regarding the need for possible fecal diversion noted. Suggestion: 1. Await decision regarding fecal diversion 2. Continue Unasyn
[2016-08-24 14:51] VITALS: BP 150/80
--- NOTE | 2016-08-24 21:27 | NUR ---
PT PREMEDICATED PER [facility]AR WITH 1MG IV DILAUDID AND DRESSING CHANGE DONE AT 2014. PT TOLERATED DRESSING CHANGE WELL. WHEN PT HAS BM, BM GOES RIGHT INTO DRESSING. AT 2114- PT EMOTIONAL AND IN TEARS THAT HE HAD ANOTHER BM THAT WENT INTO DRESSING AND DRESSING HAD TO BE CHANGED. PT REQUESTING IV DILAUDID BEFORE SECOND DRESSING CHANGE. PER ORDERS, THIS RN HAD TO SPEAK WITH TREE AND SHRUB TECHNICIAN REGARDING ANOTHER ONE TIME DOSE OF 1MG IV DILAUDID FOR PT. TREE AND SHRUB TECHNICIAN VARUN NOTIFIED, ONE TIME ORDER FOR DILAUDID ACKNOWLEDGED AND GIVEN TO PT, WILL CHANGE DRESSING IN 10 MIN PER PT REQUEST.
[2016-08-24 22:18] VITALS: BP 132/80
[2016-08-25 06:42] VITALS: BP 164/100
--- NOTE | 2016-08-25 07:38 | PN- Housestaff ---
KHRIS CRYSTAL MD,[facility] 08/25/16 0738: Subjective Follow-up For: Perirectal abscess Samir's gangrene s/p debridement 2 Left hydronephrosis Complaints: no complaints Subjective: Patient was comfortably lying in the bed. Patient had 2-3 bowel movements overnight and required IV Dilaudid for dressing change after every bowel movement. Patient remained afebrile overnight. Patient is not thinking about diverting stoma and will have a discussion with the surgeon about her today. Review of Systems Constitutional: Denies: chills, fever. EENTM: Denies: visual changes. Cardiovascular: Denies: chest pain, palpitations. Respiratory: Denies: cough, short of breath. Gastrointestinal: Denies: abdominal pain, nausea, vomiting. Genitourinary: Denies: dysuria. Musculoskeletal: Denies: back pain. Objective Last 24 Hrs of Vital Signs/I&O Vital Signs Date Time Temp Pulse Resp B/P B/P Pulse O2 O2 Flow FiO2 Mean Ox Delivery Rate 08/25 0642 97.8 88 18 164/100 97 Room Air 08/24 2218 98.9 76 18 132/80 95 Room Air 08/24 1451 98.5 75 18 150/80 95 Room Air 08/24 1100 97.8 72 170/100 08/24 1059 97.8 72 20 170/100 08/24 1057 97.8 72 20 170/100 98 Room Air Room Air Intake & Output 08/25 1600 08/25 0800 08/25 0000 Intake Total 260 830 Output Total 1150 500 Balance -890 330 Intake, IV 260 130 Intake, Oral 0 700 Number 1 2 Bowel Movements Output, Urine 1150 500 Physical Exam General Appearance: Alert, Oriented X3, Cooperative, No Acute Distress HEENT: Atraumatic Neck: Supple Cardiovascular: Regular Rate, Normal S1, Normal S2 Lungs: Clear to Auscultation, Normal Air Movement Abdomen: Normal Bowel Sounds, Soft, No Tenderness, perirectal area covered with surgical dressing Neurological: Normal Speech, Normal Tone Extremities: right BKA, intact dressing Vascular: Normal Pulses Current Medications: Current Medications Sig/Angela Start time Last Medication Dose Route Stop Time Status Admin Acetaminophen 650 MG Q6P PRN 08/18 2200 AC PO Amlodipine Besylate 5 MG DAILY 08/19 1000 AC 08/24 PO 1100 Ampicillin Sodium/ 3,000 MG Q6 08/21 1200 AC 08/25 Sulbactam Sodium IV 0526 Sodium Chloride 100 ML Aspirin Buffered 81 MG DAILY 08/19 1000 AC 08/24 PO 1100 Atorvastatin Calcium 5 MG 1700 08/19 1700 AC 08/24 PO 1705 Escitalopram Oxalate 10 MG DAILY 08/19 1000 AC 08/24 PO 1100 Gabapentin 100 MG Q12P PRN 08/18 2315 AC 08/23 PO 1016 Heparin Sodium 5,000 UNIT Q8 08/18 2200 AC 08/25 (Porcine) SC 0526 Hydromorphone HCl 1 MG ONCE ONE 08/25 0300 CAN IV 08/25 0301 Hydromorphone HCl 0.6 MG ONCE ONE 08/25 0300 DC 08/25 IV 08/25 0301 0310 Hydromorphone HCl 1 MG ONCE ONE 08/24 213 DC 08/24 IV 08/24 Hydromorphone HCl 2 MG .STK-MED ONE 08/24 0932 DC IM 08/24 0933 Hydromorphone HCl 1 MG Q12P PRN 08/21 0930 AC 08/24 IV 1952 Ibuprofen 600 MG Q6P PRN 08/18 2200 AC PO Insulin Aspart 0 TIDAC 08/24 1200 AC SC Insulin Detemir 8 UNITS BID 08/23 2200 AC 08/24 ND 211 Insulin Human Regular 0 Q6 08/23 2359 [facility] Lactobacillus 1 CAP DAILY 08/19 1000 AC 08/24 Acidophilus PO 1100 Lisinopril 40 MG DAILY 08/19 1000 AC 08/24 PO 1059 Magnesium Hydroxide 30 ML Q3D PRN 08/18 2145 AC PO Melatonin 5 MG AT BEDTIME 08/18 2200 AC 08/24 PO 2112 Morphine Sulfate 2 MG Q4P PRN 08/18 220 AC 08/24 IV 1833 Nystatin 1 DANIELLE BID 08/23 1110 AC 08/24 TOP 1105 Senna/Docusate Sodium 2 TAB DAILY 08/19 1000 AC PO Sodium Hypochlorite 1 DANIELLE BID 08/24 1000 AC 08/25 TOP 0315 Sodium Hypochlorite 1 DANIELLE BID 08/20 0800 DC 08/23 TOP 2034 Last 24 Hrs of Lab/Ramin Results Last 24 Hrs of Labs/Mics: Laboratory Tests 08/25/16 0640: Sodium Pending, Potassium Pending, Chloride Pending, Carbon Dioxide Pending, Anion Gap Pending, BUN Pending, Creatinine Pending, BUN/Creatinine Ratio Pending , CBC w Diff Pending, WBC Pending, RBC Pending, Hgb Pending, Hct Pending, MCV Pending, MCH Pending, RDW Pending, Plt Count Pending, MPV Pending, PUBS MCHC Pending Lines/Diet/Fluids Lines: peripheral lines Restraints: none Assessment/Plan Assessment: 46-year-old man with past medical history significant for hypertension, insulin- dependent diabetes mellitus, and peripheral vascular disease, Group B strep sepsis secondary to a gangrenous right great toe status post amputation and 1 month course of Unasyn, osteomyelitis status post right BKA came to emergency department for chief complaint of one-week history of perirectal pain that is progressive and aggravated with sitting and bowel movement. Vitals on admission, patient was febrile to 102.2. Laboratory data showed leukocytosis of 20,000. CT of the abdomen and pelvis showed Abnormal appearance along the left gluteal cleft is possibly associated with a left perianal fistula extending to the posterior skin surface and Increased left hydronephrosis. Increased periureteral stranding. No calculi. Similar appearance of bilateral perinephric stranding. Patient was admitted on general medicine floor for the management of following problems 1. Perianal abscess status post debridement 2 Surgical consult was obtained and patient was evaluated by surgical team. Patient underwent examination under anesthesia and debridment. Patient is currently 6 days status post first I&D of a perirectal abscess and day 1 status post second I&D. ID consult was placed as patient was recently treated for urinary tract infection in the facility and also a few papules were noticed on patient's upper extremity. UA sample is not great as it contains a lot of epithelial cells. Urine culture growing yeast, most likely colonization. As per ID recommendation antibiotics were switched from ciprofloxacin and metronidazole to metronidazole and ceftriaxone. OR cultures grew Group B strep, Enterococcus and gram-negative rods, and antibiotics were switched as per ID recommendation to Zosyn and metronidazole and ceftriaxone was discontinued. Zosyn has been discontinued and it was switched to IV Unasyn based on the sensitivity of organisms identified in OR cultures (Proteus Mirabilis, E Coli, Klebsiella Pneumoniae, Enterococcus, anerobes and Beta Strep Group B). His WBC is 10.8 2 days ago. General surgery did second Look with washout and a debridment for the Necrotizing perineal soft tissue infection in the operating room today. Patient will need a diverting stoma because of persistent fecal soilage. Patient is agreeable to the current plan and he will discuss this in detail with surgery today. 2. Left hydronephrosis Although patient has mild left hydronephrosis on CAT scan, his renal function tests are within acceptable limit. Creatine this morning is pending. 3. History of diabetes mellitus Continue Accu-Cheks TIDAC Continue Novolog sliding scale TIDAC Continue Levemir 34 units BID We will continue his levemir dose of 8 units BID tonight and start Novolog sliding scale. Adjust the long-acting insulin to 17 units and eventually to 34 units as Accu- Cheks improve Patient is full code Patient is on heparin for DVT prophylaxis Patient is on diabetic diet Problem List: 1. Perianal abscess Pain Ratin Pain Location: NA Pain Goal: Pain 4 or less Pain Plan: Continue current pain management Tomorrow's Labs & Rationales: CBC for leukocytosis BEP for monitoring of renal function DVT/Prophylaxis: pharmacological ALISON CHAKRABORTY 08/25/16 0912: Attending MD Review Statement Attending Statement Attending MD Statement: examined this patient, discuss w/resident/PA/SUPPLY CHAIN COORDINATOR, agreed w/resident/PA/SUPPLY CHAIN COORDINATOR, discussed with family, reviewed EMR data (avail), discussed with nursing, discussed with case mgmt, reviewed images, amended to note Attending Assessment/Plan: ASSESSMENT 1. POD#4 s/p debridement of samir gangrene 2. Left hydronephrosis and pernephric standing 3. Sepsis 2/2 above resolved 4. T2DM on oral hypoglycemics poorly controlled 5. PVD and h/o OM s/p amputation 6. perianal abscess plan for diverting colostomy Plan - Admit to general medicine - abx as per ID, reviewed wound cultures - [place] rectal Surgery f/u. - Urology consulted for hydronephrosis - RISS and titrate insulin as needed. - Pain control adressed. optmising pain meds - patient agreeable to diverting colostomy now, f/u Surgery for OR. - Patient is low risk for low risk procedure, patient is medically stable for procedure.
[2016-08-25 08:23] LABS: ABSOLUTE BASOPHIL COUNT 0 /CUMM (0.0-0.2); ABSOLUTE EOSINOPHIL COUNT 0.6 /CUMM (0.0-0.7); ABSOLUTE GRANULOCYTE CT 8.5 /CUMM (1.4-6.5); ABSOLUTE MONOCYTE COUNT 0.7 /CUMM (0.10-0.60); BASOPHIL % 0.3 % (0.0-2.0); EOSINOPHIL % 4.9 % (0-5); GRANULOCYTE % 71.8 % (42.2-75.2); HEMATOCRIT 27.2 % (42-52); MEAN CORPUSCULAR HGB 27.7 PG (27.0-31.0); MEAN CORPUSCULAR HGB CONC 32.5 G/DL (33.0-37.0); MEAN CORPUSCULAR VOLUME 85.3 FL (80.0-94.0); MEAN PLATELET VOLUME 7.3 FL (7.4-10.4); PLATELET COUNT 446 /CUMM (130-400); RED BLOOD CELL CT 3.19 /CUMM (4.70-6.10); WHITE BLOOD CELL COUNT 11.9 /CUMM (4.8-10.8)
--- NOTE | 2016-08-25 08:39 | PN- General Surgery ---
Surgical Brief Attending Note Brief Attending Note: The wound recently cleaned by nursing and appears healthy good granulation bed However, nursing reports constant fecal soiling of the wound Discuss diversion again with the patient today, patient would like to proceed with diversion. We'll plan to do a diverting laparoscopic loop ileostomy this admission
[2016-08-25 08:49] VITALS: BP 122/74
--- NOTE | 2016-08-25 12:12 | NUR ---
DRESSING CHANGED TO RIGHT BKA. LEFT LATERAL STUMP NOTED TO HAVE AREAS OF NECROSIS AROUND SUTURES. SMALL AMOUNT OF BROWN DRAINAGE NOTED. SUTURES REMAIN IN PLACE. PER PT, HAS BEEN FOLLOWING UP WITH WOUND CARE CENTER. DR. HERMOSILLO CALLED AND NOTIFIED. PER MD, WILL CALL VASCULAR SURGEON AND WOUND [facility]ARE CENTER. XEROFORM/GAUZE DRESSING APPLIED ORDERED.
--- NOTE | 2016-08-25 12:50 | NUR ---
WOUND CARE: CALL RECEIVED FROM SUPERIOR COURT CLERK RE: RIGHT BKA AND NEED FOR F/U S/P SURGERY - SUTURES REMAIN INTACT TO INCISION LINE PER MEDICAL STAFF - CALL PLACED TO PAGE [facility] AND MADE AWARE THAT PT IS IN NEED OF VASCULAR / SX F/U TODAY
[2016-08-25 14:51] VITALS: BP 140/90; BP 80/60
--- NOTE | 2016-08-25 15:47 | Cons- Vascular Surgery ---
General Information and HPI Consulting Request Date of Consult: 08/25/16 Requested By: MYLENE PERKINS,ALISON History of Present Illness: Patient also the vascular surgery service. He underwent right transtibial amputation due to chronic osteomyelitis and infection of the right foot refractory to antibiotics and wound care on 07/20/2016. He was admitted with perianal abscess and will undergo divergent by general surgery. Sutures from the stump has been removed. There are 2 open areas on the stump. Vascular surgery was consulted for further management. Allergies/Medications Allergies: Coded Allergies: cephalexin (From KEFLEX) (Intermediate, HIVES 04/29/16) adhesive (Mild, IRRITATION 04/29/16) Home Med List: Amlodipine Besylate 5 MG TABLET 1 TAB PO DAILY HTN (Reported) Aspirin (Ecotrin*) 81 MG TABLET.DR 1 TAB PO DAILY HEART/BLOOD (Reported) Bisacodyl (Dulcolax) 10 MG SUPP.RECT 1 SUP RC DAILY PRN CONSTIPATION ( Reported) Escitalopram Oxalate (Lexapro) 10 MG TABLET 1 TAB PO DAILY MENTAL HEALTH ( Reported) Ferrous Sulfate (Slow Fe) 142 MG (45 MG IRON) TABLET.ER 1 TAB PO DAILY SUPPLEMENT Gabapentin 100 MG CAPSULE 100 MG PO Q12P PRN ANXIETY Glucagon,Human Recombinant (Glucagon Emergency Kit) 1 MG KIT 1 MG IM AD PRN HYPOGLYCEMIA (Reported) Insulin Detemir (Levemir Flextouch) 100 UNIT/ML (3 ML) INSULN.PEN 34 UNITS SC Q12H DM (Reported) Lactobacillus Acidophilus (Acidophilus) 1 EACH CAPSULE 1 CAP PO DAILY PROBIOTIC (Reported) Lisinopril 40 MG TABLET 1 TAB PO DAILY HTN (Reported) Lovastatin 20 MG TABLET 1 TAB PO DAILY cholesterol (Reported) Magnesium Hydroxide (Milk Of Magnesia) 400 MG/5 ML ORAL.SUSP 30 ML PO Q3D PRN CONSTIPATION (Reported) Melatonin (Unknown Strength) TABLET 5 MG PO QPM SLEEP (Reported) Metformin HCl 500 MG TABLET 1 TAB PO BID DM II (Reported) Na Phos,M-B/Na Phos,Di-Ba (Fleet Enema) 19 GRAM-7 GRAM/118 ML ENEMA 1 E RC DAILY PRN CONSTIPATION (Reported) Naloxone HCl (Narcan) 4 MG/ACTUATION SPRAY 4 MG CHANCE AD PRN OPIOID INDUCED RESP. DEPRESSIO (Reported) Sennosides (Senna) 8.6 MG TABLET 2 TAB PO DAILY PRN CONSTIPATION (Reported) Past History Medical History Blood Transfusion Hx: No Neurological: NONE EENT: NONE Cardiovascular: hypertension, hyperlipidemia, PVD Respiratory: NONE Gastrointestinal: C. 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 MOTHER (diverticulitis). BROTHER (diabetes). Relation not specified for: FH: diabetes mellitus Psychosocial History Where Do You Live? Home Who Do You Live With? significant other Services at Home: None Primary Language: [place]al[place] Smoking Status: Never Smoked Functional Ability ADLs Independent: dressing, eating, toileting, bathing. Review of Systems Review of Systems: Patient denies headache, dizziness, cough, palpitation, diarrhea or constipation Exam & Diagnostic Data Vital Signs and I&O Vital Signs Date Time Temp Pulse Resp B/P B/P Pulse O2 O2 Flow FiO2 Mean Ox Delivery Rate 08/25 1451 97.9 77 18 140/90 97 Room Air 08/25 1203 Room Air Room Air 08/25 0849 83 122/74 95 Room Air 08/25 0841 83 122/74 08/25 0841 83 122/74 08/25 0642 97.8 88 18 164/100 97 Room Air 08/24 2218 98.9 76 18 132/80 95 Room Air Intake & Output 08/25 1600 08/25 0800 08/25 0000 08/24 1600 08/24 0800 08/24 0000 Intake Total 900 260 830 780 260 400 Output Total 1500 1150 541 084 3916 400 Balance -600 -890 330 30 -740 0 Intake, IV 100 260 130 300 260 150 Intake, Oral 800 0 700 480 0 250 Number 2 1 2 0 0 Bowel Movements Output, Urine 1500 1150 060 393 4251 400 Physical Exam: Patient is alert and oriented 3 Lungs: Clear to auscultation bilaterally CV: Regular rate and rhythm Abdomen: Soft, nontender nondistended Extremity: Right stump is warm and pink. There is a lateral and medial wound opening. There is no purulence or erythema. Assessment/Plan Assessment/Plan 46-year-old man's status post right transtibial amputation on 07/20/2016 with 2 opening in the stump without evidence of infection. The patient is tentatively placed on the OR list on Wednesday for debridement washout and possible wound VAC placement. Consult Acknowledgment - Thank you for your consult request. Attending MD Review Statement Attending Statement Attending MD Statement: examined this patient, discuss w/resident/PA/IV THERAPY NURSE
--- NOTE | 2016-08-25 17:17 | NUR ---
PT SCHEDULED FOR ILEOSTOMY TOMORROW AT 1530. CALL PLACED TO SURGICAL PA REGARDING IF PT WAS GOING TO HAVE TO TAKE A PREP TONIGHT. PER SURGICAL PA, NO PREP NEEDED. PT UPDATED ON POC. TO BE NPO AT MIDNIGHT.
[2016-08-25 22:31] VITALS: BP 122/70
--- NOTE | 2016-08-26 05:55 | PN- General Surgery ---
Subjective Subjective: I was called by resident and nurse to evaluate bloody bowel movement with the patient just passed. Patient has had persistent pain in the rectal area which is no worse, he states he's been having increased amount of gas and had a large bowel movement. He denies any generalized abdominal pain or epigastric burning discomfort. Objective Vital Signs and I&Os Vital Signs Date Time Temp Pulse Resp B/P B/P Pulse O2 O2 Flow FiO2 Mean Ox Delivery Rate 08/25 2231 97.8 89 18 122/70 93 Room Air 08/25 1451 97.9 77 18 140/90 97 Room Air 08/25 1203 Room Air Room Air 08/25 0849 83 122/74 95 Room Air 08/25 0841 83 122/74 08/25 0841 83 122/74 08/25 0642 97.8 88 18 164/100 97 Room Air Intake & Output 08/26 0800 08/26 0000 08/25 1600 08/25 0800 08/25 0000 08/24 1600 Intake Total 600 900 260 830 780 Output Total 350 1500 1150 500 750 Balance 250 -600 -890 330 30 Intake, IV 100 260 130 300 Intake, Oral 600 800 0 700 480 Number 2 1 2 0 Bowel Movements Output, Urine 350 1500 1150 500 750 Physical Exam: Well-developed well-nourished no apparent distress. HEENT: Atraumatic, Neck: Supple, no lymphadenopathy Respiratory: No respiratory distress Abdomen: Soft nontender nondistended Neuro: Alert and oriented x3 Psych: Mood affect normal, normal memory normal judgment. Skin: Warm and dry, no rash on exposed skin Rectal region: Pad on the bed has large bloody coagulated bowel movement was mostly dark blood. There is no active bleeding from the wound. The packing was removed. There is granulation tissue in the wound however it is contaminated with stool as well. No active bleeding noted. Wound was repacked. Assessment/Plan Assessment/Plan Patient with infected rectal fistula, had a bloody bowel movement pulling off blood clots that had formed after his last I&D. Bleeding has not stopped, wound was repacked and dressed with Dakins solution. Plan to OR today with Sg Arauz DO for diverting colostomy.
[2016-08-26 06:36] VITALS: BP 132/70
--- NOTE | 2016-08-26 07:37 | PN- Housestaff ---
KHRIS CRYSTAL MD,[facility] 08/26/16 0737: Subjective Follow-up For: Perirectal abscess Samir's gangrene s/p debridement 2 Left hydronephrosis Complaints: PAIN IN THE PERIRECTAL AREA Subjective: Patient had a bowel movement overnight. Surgical team was called to reassess the site of dressing as it was soiled with blood. Wound was repacked and dressing was done. Patient is agreeable to diverting colostomy and will go to to the operating room today for the procedure. Review of Systems Constitutional: Denies: chills, fever. Cardiovascular: Denies: chest pain, orthopena, palpitations. Respiratory: Denies: cough, short of breath. Gastrointestinal: Denies: abdominal pain, nausea, vomiting. Genitourinary: Denies: discharge. Musculoskeletal: Denies: back pain. Objective Last 24 Hrs of Vital Signs/I&O Vital Signs Date Time Temp Pulse Resp B/P B/P Pulse O2 O2 Flow FiO2 Mean Ox Delivery Rate 08/26 0636 98.2 80 18 132/70 97 Room Air 08/25 2231 97.8 89 18 122/70 93 Room Air 08/25 1451 97.9 77 18 140/90 97 Room Air 08/25 1203 Room Air Room Air 08/25 0849 83 122/74 95 Room Air 08/25 0841 83 122/74 08/25 0841 83 122/74 Intake & Output 08/26 0800 08/26 0000 08/25 1600 Intake Total 600 900 Output Total 350 1500 Balance 250 -600 Intake, IV 100 Intake, Oral 600 800 Number 2 Bowel Movements Output, Urine 350 1500 Physical Exam General Appearance: Alert, Oriented X3, Cooperative HEENT: Atraumatic Neck: Supple Cardiovascular: Regular Rate, Normal S1, Normal S2 Lungs: Clear to Auscultation, Normal Air Movement Abdomen: Normal Bowel Sounds, Soft, No Tenderness, perirectal area covered with surgical dressing Neurological: Normal Speech, Normal Tone, Sensation Intact Extremities: right BKA, intact dressing Current Medications: Current Medications Sig/Angela Start time Last Medication Dose Route Stop Time Status Admin Acetaminophen 650 MG Q6P PRN 08/18 2200 AC PO Amlodipine Besylate 5 MG DAILY 08/19 1000 AC 08/25 PO 0841 Ampicillin Sodium/ 3,000 MG Q6 08/21 1200 AC 08/26 Sulbactam Sodium IV 0600 Sodium Chloride 100 ML Aspirin Buffered 81 MG DAILY 08/19 1000 AC 08/25 PO 0841 Atorvastatin Calcium 5 MG 1700 08/19 1700 AC 08/25 PO 1656 Dextrose/Sodium 1,000 ML Q13H 08/25 2300 AC 08/25 Chloride IV 2244 Escitalopram Oxalate 10 MG DAILY 08/19 1000 AC 08/25 PO 0841 Gabapentin 100 MG Q12P PRN 08/18 2315 AC 08/25 PO 0843 Heparin Sodium 5,000 UNIT Q8 08/18 2200 DC 08/25 (Porcine) SC 2056 Hydromorphone HCl 1 MG ONCE ONE 08/26 0530 DC 08/26 IV 08/26 0531 0520 Hydromorphone HCl 1 MG ONCE ONE 08/25 2130 DC 08/25 IV 08/25 2131 2158 Hydromorphone HCl 1 MG ONCE ONE 08/25 1330 DC 08/25 IV 08/25 1331 1331 Hydromorphone HCl 1 MG Q12P PRN 08/21 0930 AC 08/25 IV 1748 Ibuprofen 600 MG Q6P PRN 08/18 2200 PO Insulin Aspart 0 TIDAC 08/24 1200 DC 08/25 OH 08/25 2300 1656 Insulin Detemir 8 UNITS BID 08/23 2200 PR 08/25 OH 08/25 2300 2102 Insulin Human Regular 0 Q6 08/25 2359 08/26 OH 0633 Lactobacillus 1 CAP DAILY 08/19 1000 AC 08/25 Acidophilus PO 0841 Lisinopril 40 MG DAILY 08/19 1000 08/25 PO 0841 Magnesium Hydroxide 30 ML Q3D PRN 08/18 2145 PO Melatonin 5 MG AT BEDTIME 08/18 220 AC 08/25 PO 205 Morphine Sulfate 2 MG Q4P PRN 08/18 2200 AC 08/26 IV 0100 Nystatin 1 DANIELLE BID 08/23 1110 08/25 TOP 0842 Senna/Docusate Sodium 2 TAB DAILY 08/19 1000 AC PO Sodium Hypochlorite 1 DANIELLE BID 08/24 1000 AC 08/26 TOP 0600 Last 24 Hrs of Lab/Ramin Results Last 24 Hrs of Labs/Mics: Laboratory Tests 08/26/16 0630: Sodium Pending, Potassium Pending, Chloride Pending, Carbon Dioxide Pending, Anion Gap Pending, BUN Pending, Creatinine Pending, BUN/Creatinine Ratio Pending , CBC w Diff Pending, WBC Pending, RBC Pending, Hgb Pending, Hct Pending, MCV Pending, MCH Pending, RDW Pending, Plt Count Pending, MPV Pending, PUBS MCHC Pending Orders Fingersticks (last 24 hrs): 184, 205, 177 Lines/Diet/Fluids Lines: peripheral lines Restraints: none Assessment/Plan Assessment: 46-year-old man with past medical history significant for hypertension, insulin- dependent diabetes mellitus, and peripheral vascular disease, Group B strep sepsis secondary to a gangrenous right great toe status post amputation and 1 month course of Unasyn, osteomyelitis status post right BKA came to emergency department for chief complaint of one-week history of perirectal pain that is progressive and aggravated with sitting and bowel movement. Vitals on admission, patient was febrile to 102.2. Laboratory data showed leukocytosis of 20,000. CT of the abdomen and pelvis showed Abnormal appearance along the left gluteal cleft is possibly associated with a left perianal fistula extending to the posterior skin surface and Increased left hydronephrosis. Increased periureteral stranding. No calculi. Similar appearance of bilateral perinephric stranding. Patient was admitted on general medicine floor for the management of following problems 1. Perianal abscess status post debridement 2 Surgical consult was obtained and patient was evaluated by surgical team. Patient underwent examination under anesthesia and debridment. Patient is currently 6 days status post first I&D of a perirectal abscess and day 1 status post second I&D. ID consult was placed as patient was recently treated for urinary tract infection in the facility and also a few papules were noticed on patient's upper extremity. UA sample is not great as it contains a lot of epithelial cells. Urine culture growing yeast, most likely colonization. As per ID recommendation antibiotics were switched from ciprofloxacin and metronidazole to metronidazole and ceftriaxone. OR cultures grew Group B strep, Enterococcus and gram-negative rods, and antibiotics were switched as per ID recommendation to Zosyn and metronidazole and ceftriaxone was discontinued. Zosyn has been discontinued and it was switched to IV Unasyn based on the sensitivity of organisms identified in OR cultures (Proteus Mirabilis, E Coli, Klebsiella Pneumoniae, Enterococcus, anerobes and Beta Strep Group B). His WBC is 10.8 2 days ago. General surgery did second Look with washout and a debridment for the Necrotizing perineal soft tissue infection in the operating room today. Patient will need a diverting stoma because of persistent fecal soilage. Patient is agreeable to the current plan of diverting colostomy. Overnight patient had a bowel movement which was soiled with blood. Surgical team was called to assess the wound. As per assessment, bowel movement pulled off the clots from the surgical area, dressing was done and area was repacked. Patient will go to the operating room around 3 PM to have his surgery. 2. Left hydronephrosis Although patient has mild left hydronephrosis on CAT scan, his renal function tests are within acceptable limit. Creatine this morning is pending. 3. History of diabetes mellitus Continue Accu-Cheks TIDAC Continue Novolog sliding scale TIDAC We will continue his levemir dose of 8 units BID tonight and start Novolog sliding scale. Adjust the long-acting insulin to 17 units and eventually to 34 units as Accu- Cheks improve Patient is full code Patient is on heparin for DVT prophylaxis Patient is on diabetic diet Problem List: 1. Osteomyelitis 2. Perirectal fistula 3. Perirectal abscess Pain Ratin Pain Location: Perirectal area Pain Goal: Pain 4 or less Pain Plan: Continue with current pain medication Tomorrow's Labs & Rationales: CBC to follow leukocytosis and anemia BEP to monitor electrolyte and renal function DVT/Prophylaxis: ALISON Green 08/26/16 0914: Attending MD Review Statement Attending Statement Attending MD Statement: examined this patient, discuss w/resident/PA/LEAD INFORMATICA DEVELOPER, agreed w/resident/PA/LEAD INFORMATICA DEVELOPER, discussed with family, reviewed EMR data (avail), discussed with nursing, discussed with case mgmt, reviewed images, amended to note Attending Assessment/Plan: ASSESSMENT 1. POD#6 s/p debridement of samir gangrene X 2 2. Left hydronephrosis and pernephric standing 3. Sepsis 2/2 above resolved 4. T2DM on oral hypoglycemics poorly controlled 5. PVD and h/o OM s/p amputation 6. perianal abscess plan for diverting ileostomy/colostomy 7. Possible revision of BKA. (wound avc and wash out) Plan - Admit to general medicine - abx as per ID, reviewed wound cultures - [place] rectal Surgery f/u. - Urology consulted for hydronephrosis - RISS and titrate insulin as needed. - Pain control adressed. optmising pain meds - patient agreeable to diverting colostomy now, f/u Surgery for OR. - Patient is low risk for low risk procedure, patient is medically stable for procedure.
[2016-08-26 08:10] LABS: ABSOLUTE BASOPHIL COUNT 0.1 /CUMM (0.0-0.2); ABSOLUTE EOSINOPHIL COUNT 0.6 /CUMM (0.0-0.7); ABSOLUTE GRANULOCYTE CT 8.5 /CUMM (1.4-6.5); ABSOLUTE LYMPH COUNT 1.9 /CUMM (1.2-3.4); ABSOLUTE MONOCYTE COUNT 0.8 /CUMM (0.10-0.60); BASOPHIL % 0.5 % (0.0-2.0); EOSINOPHIL % 5.2 % (0-5); GRANULOCYTE % 72.1 % (42.2-75.2); HEMATOCRIT 26.8 % (42-52); MEAN CORPUSCULAR HGB 27.9 PG (27.0-31.0); MEAN CORPUSCULAR HGB CONC 32.8 G/DL (33.0-37.0); MEAN CORPUSCULAR VOLUME 85.1 FL (80.0-94.0); MEAN PLATELET VOLUME 7.2 FL (7.4-10.4); PLATELET COUNT 439 /CUMM (130-400); RBC DISTRIBUTION WIDTH 17.7 % (11.5-14.5); RED BLOOD CELL CT 3.15 /CUMM (4.70-6.10); WHITE BLOOD CELL COUNT 11.7 /CUMM (4.8-10.8)
--- NOTE | 2016-08-26 09:36 | NUR ---
0500 PT CALLED AND STATED HE MOVED HIS BOWEL.WHEN CHECKED PT ONLY HAD VERY LITTLE STOOL & LARGE AMOUNT OF FRESH RED BLOOD WITH CLOTS IN BED.REPORTED TO ABRASIVE GRINDER AND TOLD HER TO COME & CHECKED PT. 0520 ABRASIVE GRINDER IS HERE TO SEE PT & REQUESTED SURGICAL PA .PA CALLED & WILL COME & SEE PT.DILAUDID 1MG IV X1 ORDERED PRIOR TO DSG CHANGED.MED GIVEN.WAITING FOR PA. 0535 PA WAS CALLED.WILL COME IN A FEW MINUTES. 0600 PA SAW THE BLEEDING BUT HAD ALREADY STOPPED.NO NEW ORDERD GIVEN.CONTINUE TO PACK WOUND ORDERED.WOUND FLUSHED WITH NS.LARGE BLOOD CLOT NOTED IN WOUND.WOUND PACKED WITH DAKINS W-D F/B PLUFFS & ABD PAD.PT TOLERATED PROCEDURE WELL.MADE CLEAN & DRY.INCONT PAD ON BED.
[2016-08-26 10:00] VITALS: BP 140/84
[2016-08-26 14:48] VITALS: BP 120/76
--- NOTE | 2016-08-26 15:30 | NUR ---
PT TAKEN TO OR VIA STRETCHER. GLASSES ON PERSON FOR CONSENT.
--- NOTE | 2016-08-26 18:10 | Operative Report ---
Operative/Inv Procedure Report Surgery Date: 08/26/16 Name of Procedure: Laparoscopic diverting loop ileostomy Pre-Operative Diagnosis: Carolina gangrene Post-Operative Diagnosis: Same Estimated Blood Loss: scant Surgeon/Rectification Printer: Dr. Sg RUSS Anesthesia: general endotracheal tube Monitors: Per routine Urine Output: Adequate Drains: Stoma bridge Specimens: Urine for UA Complications: None Condition: Good Operative Indication: This is a 46-year-old gentleman with severe poorly controlled diabetes who is status post recent [id number] amputation. Is admitted to the hospital last week with Carolina's gangrene. He had extensive debridement of his perineum. He had a second procedure with washout and additional debridement. He's been constantly physically soiling his wound which is very near to the opening of his anus. We are doing this procedure today to facilitate his wound care and speed his healing process Operative/Procedure Note Note: Patient was taken into the operating room and placed in the supine position on the operating room table. The patient did receive IV antibiotics before induction of general anesthesia. Patient underwent induction of general anesthesia placement of Jose catheter and then received bilateral tap block. His left arm was tucked and the abdomen was prepped and draped in usual fashion. We gave access to the abdominal cavity using a Ignacio technique. The Ignacio port was placed in the supraumbilical position in the midline. Next 25 mm ports were placed under direct visualization of the laparoscope one in the left upper quadrant when the left lower quadrant. Patient had some abnormal adhesions of the omentum in the right lower quadrant so lysis of adhesion was performed for a few minutes. This allowed me to visualize the cecum and flipped the omentum over the transverse colon. The terminal ileum was identified and then I ran it back for about 30 cm shows a good site with good laxity for formation of the stoma. Using a [place] I gently dissected the mesentery adjacent to the bowel wall until I intentionally made a small defect in the mesentery. Through the mesenteric defect and umbilical tape was placed. The 2 ends of the umbilical tape was secured to each other with a laparoscopic 5 mm prior. A 12 mm port was placed in the right upper quadrant through the previously selected stoma site. I was able to grab the local tape and pull it through this port. The pneumoperitoneum was then let down. I excised a portion of the skin and subcutaneous tissue around the incision enough to accommodate a loop ileostomy. We dissected down to the fascia and then made a cruciate fashion and the anterior slip of the fascia. We bluntly dissected the rectus muscle and exposed the posterior sheath. The posterior sheath was also divided in a cruciate fashion. The fascial defect was gently dilated and I was able to easily pull the previously chosen loop of small bowel through the fascial defect. We reinsufflated the abdomen to inspect the mesentery make sure there was no twisting of the bowel. The bowel appeared to lie appropriately. The pneumoperitoneum was let down and all the ports were removed. The fascia at the umbilical port was closed with a [id number] 0 Vicryl suture. The subcutaneous of all 3 lap scopic ports were closed with subcuticular 4-0 Monocryl. The skin was cleansed and dried. Mastisol and Steri-Strips were applied at these incisions. Sterile bandages were placed over these incisions. A transverse enterotomy was intentionally created in the small bowel. And then a Dori type double barrel ileostomy was created with interrupted 3-0 Vicryl suture. A heavy gauge red rubber catheter was pulled through the mesenteric defect. And the tails of the catheter were secured to each other to create a stoma bridge. At this point the abdomen was cleansed and dried and a stomal collection device was fitted over the ileostomy. The procedure was concluded. The patient tolerated the procedure well was extubated in the operating room and taken to the recovery area in good condition. At the end of this operational needle sponges and measurements were accounted for. Findings: Stoma healthy and pink at the end of the operation Discharge Disposition: PACU CC: TRISTIN ELIZABETH DO
[2016-08-26 19:30] VITALS: BP 120/70
--- NOTE | 2016-08-26 19:30 | NUR ---
PT ARRIVED TO FLOOR FROM PACU. VSS. PT O2 SAT AT 90% ON RA. PLACED PT ON NC 1L AND O2 SAT INCREASED TO 95%. WILL CONTINUE TO MONITOR. AFEBRILE. NO C/O NAUSEA OR PAIN. 3 BANDAIDS TO ABD AND R SIDE ILEOSTOMY. SURGICAL SITES ALL C/D/I. DRESSING TO PERIRECTAL ABCESS ALSO C/D/I.
--- NOTE | 2016-08-26 19:44 | PN- General Surgery ---
Subjective Subjective: POC Pain well controlled, tolerating clears, no n/v, +uo via hassan, no oob postop, no ostomy fxn yet Objective Vital Signs and I&Os Vital Signs Date Time Temp Pulse Resp B/P B/P Pulse O2 O2 Flow FiO2 Mean Ox Delivery Rate 08/26 1930 98.2 86 18 120/70 93 Nasal 1.0L Cannula 08/26 1448 98.1 76 20 120/76 94 08/26 1003 98.5 78 16 140/84 08/26 1000 98.5 78 16 140/84 100 Room Air 08/26 0636 98.2 80 18 132/70 97 Room Air 08/26 0000 93 Room Air 08/25 2231 97.8 89 18 122/70 93 Room Air Intake & Output 08/26 1600 08/26 0800 08/26 0000 08/25 1600 08/25 0800 08/25 0000 Intake Total 650 600 600 900 260 830 Output Total 900 0 350 1500 1150 500 Balance -250 600 250 -600 -890 330 Intake, IV 600 600 100 260 130 Intake, Oral 50 0 600 800 0 700 Number 1 2 1 2 Bowel Movements Output, Urine 900 0 350 1500 1150 500 FINGERSTICK: 199 (7pm) Physical Exam: GEN- NAD CARD- S1S2 RRR PULM- CTAB ABD- obese, soft ,incisions CDI, stoma pink & edematous, red rubber cath bridge in place, no stool or gas, scant serosang drainage in bag, ttp, +bs EXT- RLE stump dressing CDI nt, LLE calf soft nt, foot warm Assessment/Plan Assessment/Plan A: 46M POD0 sp lap DLI 2/2 perirectal wound, stable postoperatively P: prn pain meds continue unasyn- active infection perirectal region clr liquid ada diet, await bowel fxn HL IVF once yosef diet hep sq, ALPs, OOB- DVT ppx hassan: tight glucose control home meds continue perirectal 1/4 dakins packing BID by RN discussed with medical assistant secretary will dw attending
[2016-08-26 21:30] VITALS: BP 122/74
[2016-08-27 00:07] VITALS: BP 144/86
[2016-08-27 02:00] VITALS: BP 114/70; BP 130/68
[2016-08-27 06:00] VITALS: BP 116/80
[2016-08-27 07:58] LABS: ABSOLUTE BASOPHIL COUNT 0 /CUMM (0.0-0.2); ABSOLUTE EOSINOPHIL COUNT 0.6 /CUMM (0.0-0.7); ABSOLUTE GRANULOCYTE CT 8.3 /CUMM (1.4-6.5); ABSOLUTE LYMPH COUNT 1.7 /CUMM (1.2-3.4); ABSOLUTE MONOCYTE COUNT 0.8 /CUMM (0.10-0.60); BASOPHIL % 0.3 % (0.0-2.0); EOSINOPHIL % 4.8 % (0-5); GRANULOCYTE % 72.9 % (42.2-75.2); HEMATOCRIT 27.1 % (42-52); MEAN CORPUSCULAR HGB 28.1 PG (27.0-31.0); MEAN CORPUSCULAR HGB CONC 32.9 G/DL (33.0-37.0); MEAN CORPUSCULAR VOLUME 85.5 FL (80.0-94.0); PLATELET COUNT 432 /CUMM (130-400); RED BLOOD CELL CT 3.18 /CUMM (4.70-6.10); WHITE BLOOD CELL COUNT 11.4 /CUMM (4.8-10.8)
--- NOTE | 2016-08-27 08:14 | PN- Housestaff ---
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 Today's postoperative day 1. Review of Systems Constitutional: Denies: chills, fever. EENTM: Denies: visual changes. Cardiovascular: Denies: chest pain, palpitations. Respiratory: Denies: cough, short of breath. Gastrointestinal: Denies: abdominal pain, nausea, vomiting. Genitourinary: Denies: discharge. Objective Last 24 Hrs of Vital Signs/I&O Vital Signs Date Time Temp Pulse Resp B/P B/P Pulse O2 O2 Flow FiO2 Mean Ox Delivery Rate 08/27 0600 98.1 81 18 116/80 96 Room Air 08/27 0200 97.9 75 18 130/68 95 Room Air 08/27 0007 98.1 80 20 144/86 96 Room Air 08/26 2130 98.2 76 16 122/74 95 Room Air 08/26 1930 98.2 86 18 120/70 93 Nasal 1.0L Cannula 08/26 1448 98.1 76 20 120/76 94 08/26 1003 98.5 78 16 140/84 08/26 1000 98.5 78 16 140/84 100 Room Air Intake & Output 08/27 1600 08/27 0800 08/27 0000 Intake Total 700 465 Output Total 1450 750 Balance -750 -285 Intake, IV 600 225 Intake, Oral 100 240 Output, Stool 150 Output, Urine 1300 750 Physical Exam General Appearance: Alert, Oriented X3, Cooperative, No Acute Distress HEENT: Atraumatic Cardiovascular: Regular Rate, Normal S1, Normal S2 Lungs: Clear to Auscultation, Normal Air Movement Abdomen: Normal Bowel Sounds, Soft, DIVERTING LOOP ILEOSTOMY IN PLACE Neurological: Normal Speech, Normal Tone Extremities: RIGHT bka, INTACT DRESSING Current Medications: Current Medications Sig/Angela Start time Last Medication Dose Route Stop Time Status Admin Acetaminophen 650 MG Q6P PRN 08/26 1815 AC PO Acetaminophen 650 MG Q6P PRN 08/18 2200 DC PO Amlodipine Besylate 5 MG DAILY 08/27 1000 AC PO Amlodipine Besylate 5 MG DAILY 08/19 1000 DC 08/26 PO 1003 Ampicillin Sodium/ 3,000 MG Q6 08/26 2359 AC 08/27 Sulbactam Sodium IV 0526 Sodium Chloride 100 ML Ampicillin Sodium/ 3,000 MG Q6 08/21 1200 DC 08/26 Sulbactam Sodium IV 1141 Sodium Chloride 100 ML Aspirin Buffered 81 MG DAILY 08/27 1000 AC PO Aspirin Buffered 81 MG DAILY 08/19 1000 DC 08/25 PO 0841 Atorvastatin Calcium 5 MG 1700 08/27 1700 AC PO Atorvastatin Calcium 5 MG 1700 08/19 1700 DC 08/25 PO 1656 Dextrose/Sodium 1,000 ML Q10H 08/26 1830 AC 08/27 Chloride IV 0419 Dextrose/Sodium 1,000 ML Q13H 08/25 2300 DC 08/25 Chloride IV 2244 Escitalopram Oxalate 10 MG DAILY 08/27 1000 AC PO Escitalopram Oxalate 10 MG DAILY 08/19 1000 DC 08/26 PO 1003 Fentanyl Citrate 500 MCG .STK-MED ONE 08/26 1538 DC IM 08/26 1539 Gabapentin 100 MG Q12P PRN 08/26 1815 AC PO Gabapentin 100 MG Q12P PRN 08/18 2315 DC 08/26 PO 1012 Heparin Sodium 5,000 UNIT Q8 08/26 2200 AC 08/27 (Porcine) SC 0526 Hydromorphone HCl 1 MG Q4 HRS NEEDED PRN 08/26 1900 AC 08/27 IV 0813 Hydromorphone HCl 0.5 MG Q4P PRN 08/26 1845 AC IV Hydromorphone HCl 2 MG .STK-MED ONE 08/26 1357 DC IV 08/26 1358 Hydromorphone HCl 1 MG Q12P PRN 08/21 0930 DC 08/26 IV 1322 Ibuprofen 600 MG Q6P PRN 08/18 2200 DC PO Insulin Aspart 0 TIDAC 08/27 0800 AC SC Insulin Detemir 8 UNITS BID 08/26 2200 AC 08/26 SC 2130 Insulin Human Regular 2 UNITS .STK-MED ONE 08/26 1137 DC IV 08/26 1138 Insulin Human Regular 0 Q6 08/25 2359 DC 08/26 SC 1141 Lactobacillus 1 CAP DAILY 08/19 1000 DC 08/26 Acidophilus PO 1002 Lisinopril 40 MG DAILY 08/27 1000 AC PO Lisinopril 40 MG DAILY 08/19 1000 DC 08/26 PO 1003 Magnesium Hydroxide 30 ML Q3D PRN 08/18 2145 DC PO Melatonin 5 MG AT BEDTIME 08/26 2199 AC 08/26 PO 2130 Melatonin 5 MG AT BEDTIME 08/18 2199 DC 08/25 PO 2056 Midazolam HCl 2 MG .STK-MED ONE 08/26 1538 DC IM 08/26 1539 Morphine Sulfate 2 MG Q4P PRN 08/18 220 DC 08/26 IV 0930 Nystatin 1 DANIELLE BID 08/23 1110 AC 08/25 TOP 0842 Senna/Docusate Sodium 2 TAB DAILY 08/19 1000 DC PO Sodium Hypochlorite 1 DANIELLE BID 08/26 2200 AC TOP Sodium Hypochlorite 1 DANIELLE BID 08/24 1000 DC 08/26 TOP 1346 Last 24 Hrs of Lab/Ramin Results Last 24 Hrs of Labs/Mics: Laboratory Tests 08/27/16 0705: Sodium Pending, Potassium Pending, Chloride Pending, Carbon Dioxide Pending, Anion Gap Pending, BUN Pending, Creatinine Pending, BUN/Creatinine Ratio Pending , Glucose Pending, Phosphorus Pending, Magnesium Pending, CBC w Diff Pending, WBC Pending, RBC Pending, Hgb Pending, Hct Pending, MCV Pending, MCH Pending, RDW Pending, Plt Count Pending, MPV Pending, PUBS MCHC Pending Microbiology 08/26 1650 URINE ROUT: Urine Culture - RECD Assessment/Plan Assessment: 46-year-old man with past medical history significant for hypertension, insulin- dependent diabetes mellitus, and peripheral vascular disease, Group B strep sepsis secondary to a gangrenous right great toe status post amputation and 1 month course of Unasyn, osteomyelitis status post right BKA came to emergency department for chief complaint of one-week history of perirectal pain that is progressive and aggravated with sitting and bowel movement. Vitals on admission, patient was febrile to 102.2. Laboratory data showed leukocytosis of 20,000. CT of the abdomen and pelvis showed Abnormal appearance along the left gluteal cleft is possibly associated with a left perianal fistula extending to the posterior skin surface and Increased left hydronephrosis. Increased periureteral stranding. No calculi. Similar appearance of bilateral perinephric stranding. Patient was admitted on general medicine floor for the management of following problems Perianal abscess status post debridement 2 Surgical consult was obtained and patient was evaluated by surgical team. Patient underwent examination under anesthesia and debridment. Patient is currently 6 days status post first I&D of a perirectal abscess and day 1 status post second I&D. ID consult was placed as patient was recently treated for urinary tract infection in the facility and also a few papules were noticed on patient's upper extremity. UA sample is not great as it contains a lot of epithelial cells. Urine culture growing yeast, most likely colonization. As per ID recommendation antibiotics were switched from ciprofloxacin and metronidazole to metronidazole and ceftriaxone. OR cultures grew Group B strep, Enterococcus and gram-negative rods, and antibiotics were switched as per ID recommendation to Zosyn and metronidazole and ceftriaxone was discontinued. Zosyn has been discontinued and it was switched to IV Unasyn based on the sensitivity of organisms identified in OR cultures (Proteus Mirabilis, E Coli, Klebsiella Pneumoniae, Enterococcus, anerobes and Beta Strep Group B). His WBC is 10.8 2 days ago. General surgery did second Look with washout and a debridment for the Necrotizing perineal soft tissue infection in the operating room today. Patient will needed a diverting stoma because of persistent fecal soilage. Yesterday patient had a bowel movement which was soiled with blood. Surgical team was called to assess the wound. As per assessment, bowel movement pulled off the clots from the surgical area, dressing was done and area was repacked. Continue perirectal 1/4 dakins packing BID Laparoscopic diverting loop ileostomy Patient is currently postoperative day 1. Follow-up surgical recommendations for ileostomy care Continue Unasyn Left hydronephrosis Although patient has mild left hydronephrosis on CAT scan, his renal function tests are within acceptable limit. Creatine this morning is pending. History of diabetes mellitus Continue Accu-Cheks TIDAC Continue Novolog sliding scale TIDAC We will continue his levemir dose of 8 units BID tonight and start Novolog sliding scale. Adjust the long-acting insulin to 17 units and eventually to 34 units as Accu- Cheks improve Patient is full code Patient is on heparin for DVT prophylaxis Patient is on diabetic diet Problem List: 1. S/P BKA (below knee amputation) unilateral 2. Perirectal abscess Pain Ratin Pain Location: Perirectal area Pain Goal: Pain 4 or less Pain Plan: Continue current pain management Tomorrow's Labs & Rationales: CBC for leukocytosis BEP for electrolyte abnormalities DVT/Prophylaxis: pharmacological ALISON CHAKRABORTY 08/27/16 0906: Attending MD Review Statement Attending Statement Attending MD Statement: examined this patient, discuss w/resident/PA/SEMICONDUCTOR ASSEMBLER, agreed w/resident/PA/SEMICONDUCTOR ASSEMBLER, discussed with family, reviewed EMR data (avail), discussed with nursing, discussed with case mgmt, reviewed images, amended to note Attending Assessment/Plan: ASSESSMENT 1. POD#6 s/p debridement of samir gangrene X 2 2. Left hydronephrosis and pernephric standing 3. Sepsis 2/2 above resolved 4. T2DM on oral hypoglycemics poorly controlled 5. PVD and h/o OM s/p amputation 6. perianal abscess S/P diverting ileostomy/colostomy 7. Possible revision of BKA. (wound vac and wash out) Plan - Admit to general medicine - abx as per ID, reviewed wound cultures - [place] rectal Surgery f/u. await bowel function, advance diet as tolerated/ surgery - Urology consulted for hydronephrosis - RISS and titrate insulin as needed. - Pain control adressed. optmising pain meds - Plan for possible BKA washout with wound vac as per Vascular surgery. - Patient is low risk for low risk procedure, patient is medically stable for procedure.
[2016-08-27 09:55] VITALS: BP 140/92
--- NOTE | 2016-08-27 10:00 | PN- General Surgery ---
Subjective Subjective: No acute overnight events reported. Patient tolerated procedure yesterday and is reporting that pain is tolerable presently. Had clear liquid diet with no nausea or vomitting. Denies chest pain, shortness of breath and difficulty breathing. Objective Vital Signs and I&Os Vital Signs Date Time Temp Pulse Resp B/P B/P Pulse O2 O2 Flow FiO2 Mean Ox Delivery Rate 08/27 0955 97.8 70 16 140/92 98 Room Air 08/27 0953 140/92 08/27 0953 140/92 08/27 0600 98.1 81 18 116/80 96 Room Air 08/27 0200 97.9 75 18 130/68 95 Room Air 08/27 0007 98.1 80 20 144/86 96 Room Air 08/26 2130 98.2 76 16 122/74 95 Room Air 08/26 1930 98.2 86 18 120/70 93 Nasal 1.0L Cannula 08/26 1448 98.1 76 20 120/76 94 Intake & Output 08/27 1600 08/27 0800 08/27 0000 08/26 1600 08/26 0800 08/26 0000 Intake Total 700 465 650 600 600 Output Total 1450 750 900 0 350 Balance -750 -285 -250 600 250 Intake, IV 600 225 600 600 Intake, Oral 100 240 50 0 600 Number 1 Bowel Movements Output, Stool 150 Output, Urine 1300 750 900 0 350 Physical Exam: General: Alert and oriented x3, no acute distress Cardiac: RRR, s1s2 Pulm: CTA bilaterally ABD: Incisional tenderness, non-distended. Gas and liquid output noted in appliance, had small amount of stool earlier. Extremities, lle distal sensation intact. Calve soft. Right bka dressing intact. Assessment/Plan Assessment/Plan This is a 46 year old male, POD 1 s/p diverting loop ileostomy, progressing well -Continue current pain regimen -Advance to low residue diet today -Plan for vascular surgical intervention to bka on Wednesday, will be pre-opd, npo pmn wednesday -Discussed with Dr. Arauz Core Measures/Miscellaneous Venous Thromboembolism VTE Risk Factors: Acute medical illness VTE Contraindications: No Contraindications VTE Diagnosis: No VTE Type: NONE VTE Confirmed by (Test): NONE [facility] Is Beta [facility] a Home Med? No Antibiotics Is Patient on Antibiotics? Yes
[2016-08-27 14:20] VITALS: BP 120/80
[2016-08-27 22:11] VITALS: BP 100/62
[2016-08-28 06:09] VITALS: BP 120/76
--- NOTE | 2016-08-28 06:47 | PN- Housestaff ---
KHRIS CRYSTAL MD,SUNITA 08/28/16 0647: Subjective Follow-up For: Perirectal abscess Samir's gangrene s/p debridement 2 Left hydronephrosis Status post Laparoscopic diverting loop ileostomy Complaints: no complaints Subjective: Patient is currently status post Laparoscopic diverting loop ileostomy postoperative day 2. No fever overnight. Review of Systems Constitutional: Denies: chills, fever. EENTM: Denies: visual changes. Cardiovascular: Denies: chest pain. Respiratory: Denies: cough, short of breath. Gastrointestinal: Denies: abdominal pain. Genitourinary: Denies: dysuria. Objective Last 24 Hrs of Vital Signs/I&O Vital Signs Date Time Temp Pulse Resp B/P B/P Pulse O2 O2 Flow FiO2 Mean Ox Delivery Rate 08/28 0609 98.2 85 18 120/76 96 Room Air 08/27 2211 98.0 84 18 100/62 94 08/27 1420 98.8 80 20 120/80 98 Room Air 08/27 0955 97.8 70 16 140/92 98 Room Air 08/27 0953 140/92 08/27 0953 140/92 Intake & Output 08/28 1600 08/28 0800 08/28 0000 Intake Total 520 1350 Output Total 1550 1250 Balance -1030 100 Intake, IV 280 150 Intake, Oral 240 1200 Output, Stool 750 700 Output, Urine 800 550 Physical Exam General Appearance: Alert, Oriented X3, Cooperative, No Acute Distress HEENT: Atraumatic Neck: Supple, No JVD Cardiovascular: Regular Rate, Normal S1, Normal S2 Lungs: Clear to Auscultation, Normal Air Movement Abdomen: Normal Bowel Sounds, Soft, No Tenderness, Diverting loop ILEOSTOMY in place Neurological: Normal Speech, Normal Tone Extremities: No Clubbing, No Edema, Right BKA, Intact dressing Vascular: Normal Pulses Current Medications: Current Medications Sig/Angela Start time Last Medication Dose Route Stop Time Status Admin Acetaminophen 650 MG Q6P PRN 08/26 1815 AC PO Amlodipine Besylate 5 MG DAILY 08/27 1000 AC 08/27 PO 0953 Ampicillin Sodium/ 3,000 MG Q6 08/26 2359 AC 08/28 Sulbactam Sodium IV 0538 Sodium Chloride 100 ML Aspirin Buffered 81 MG DAILY 08/27 1000 AC 08/27 PO 0951 Atorvastatin Calcium 5 MG 1700 08/27 1700 AC 08/27 PO 1731 Dextrose/Sodium 1,000 ML Q10H 08/26 1830 DC 08/27 Chloride IV 0419 Escitalopram Oxalate 10 MG DAILY 08/27 1000 AC 08/27 PO 0950 Gabapentin 100 MG Q12P PRN 08/26 1815 AC 08/27 PO 2051 Heparin Sodium 5,000 UNIT Q8 08/26 2200 AC 08/28 (Porcine) SC 0538 Hydromorphone HCl 1 MG Q4 HRS NEEDED PRN 08/26 1900 AC 08/28 IV 0404 Hydromorphone HCl 0.5 MG Q4P PRN 08/26 1845 AC IV Insulin Aspart 0 TIDAC 08/27 0800 AC 08/27 SC 1158 Insulin Detemir 8 UNITS BID 08/26 220 AC 08/27 SC 2053 Lisinopril 40 MG DAILY 08/27 1000 AC 08/27 PO 0953 Melatonin 5 MG AT BEDTIME 08/26 220 AC 08/27 PO 2051 Nystatin 1 DANEILLE BID 08/23 1110 AC 08/27 TOP 2055 Sodium Hypochlorite 1 DANIELLE BID 08/26 220 08/27 TOP 2052 Last 24 Hrs of Lab/Ramin Results Last 24 Hrs of Labs/Mics: Laboratory Tests 08/28/16 0636: Sodium Pending, Potassium Pending, Chloride Pending, Carbon Dioxide Pending, Anion Gap Pending, BUN Pending, Creatinine Pending, BUN/Creatinine Ratio Pending , CBC w Diff NO MAN DIFF REQ, RBC 3.20 L, MCV 84.5, MCH 27.7, RDW 17.8 H, MPV 7.4, Gran % 67.4, Lymphocytes % 19.7 L, Monocytes % 7.3, Eosinophils % 5.0, Basophils % 0.6, Absolute Granulocytes 8.3 H, Absolute Lymphocytes 2.4, Absolute Monocytes 0.9 H, Absolute Eosinophils 0.6, Absolute Basophils 0.1, PUBS MCHC 32.8 L Lines/Diet/Fluids Lines: peripheral lines Restraints: none Assessment/Plan Assessment: 46-year-old man with past medical history significant for hypertension, insulin- dependent diabetes mellitus, and peripheral vascular disease, Group B strep sepsis secondary to a gangrenous right great toe status post amputation and 1 month course of Unasyn, osteomyelitis status post right BKA came to emergency department for chief complaint of one-week history of perirectal pain that is progressive and aggravated with sitting and bowel movement. Vitals on admission, patient was febrile to 102.2. Laboratory data showed leukocytosis of 20,000. CT of the abdomen and pelvis showed Abnormal appearance along the left gluteal cleft is possibly associated with a left perianal fistula extending to the posterior skin surface and Increased left hydronephrosis. Increased periureteral stranding. No calculi. Similar appearance of bilateral perinephric stranding. Patient was admitted on general medicine floor for the management of following problems Perianal abscess status post debridement 2 Surgical consult was obtained and patient was evaluated by surgical team. Patient underwent examination under anesthesia and debridment. Patient is currently 6 days status post first I&D of a perirectal abscess and day 1 status post second I&D. ID consult was placed as patient was recently treated for urinary tract infection in the facility and also a few papules were noticed on patient's upper extremity. UA sample is not great as it contains a lot of epithelial cells. Urine culture growing yeast, most likely colonization. As per ID recommendation antibiotics were switched from ciprofloxacin and metronidazole to metronidazole and ceftriaxone. OR cultures grew Group B strep, Enterococcus and gram-negative rods, and antibiotics were switched as per ID recommendation to Zosyn and metronidazole and ceftriaxone was discontinued. Zosyn has been discontinued and it was switched to IV Unasyn based on the sensitivity of organisms identified in OR cultures (Proteus Mirabilis, E Coli, Klebsiella Pneumoniae, Enterococcus, anerobes and Beta Strep Group B). His WBC is 12.3 today. General surgery did second Look with washout and a debridment for the Necrotizing perineal soft tissue infection in the operating room today. Patient needed a diverting stoma because of persistent fecal soilage. Yesterday patient had a bowel movement which was soiled with blood. Surgical team was called to assess the wound. As per assessment, bowel movement pulled off the clots from the surgical area, dressing was done and area was repacked. Continue perirectal 1/4 dakins packing BID Laparoscopic diverting loop ileostomy Patient is currently postoperative day 2. Follow-up surgical recommendations for ileostomy care Continue Unasyn Left hydronephrosis Although patient has mild left hydronephrosis on CAT scan, his renal function tests are within acceptable limit. Creatine this morning is pending. History of diabetes mellitus Continue Accu-Cheks TIDAC Continue Novolog sliding scale TIDAC We will continue his levemir dose of 8 units BID tonight and start Novolog sliding scale. Adjust the long-acting insulin to 17 units and eventually to 34 units as Accu- Cheks improve Patient is full code Patient is on heparin for DVT prophylaxis Patient is on diabetic diet Problem List: 1. S/P BKA (below knee amputation) unilateral 2. Perirectal fistula 3. Perirectal abscess Pain Ratin Pain Location: [place]-rectal area Pain Goal: Pain 4 or less Pain Plan: Continue current pain medication Tomorrow's Labs & Rationales: CBC for leukocytosis BEP to monitor electrolytes ALISON CHAKRABORTY 08/28/16 0943: Attending MD Review Statement Attending Statement Attending MD Statement: examined this patient, discuss w/resident/PA/SINGLE STAYER OPERATOR, agreed w/resident/PA/SINGLE STAYER OPERATOR, discussed with family, reviewed EMR data (avail), discussed with nursing, discussed with case mgmt, reviewed images, amended to note Attending Assessment/Plan: ASSESSMENT 1. s/p debridement of samir gangrene X 2 2. Left hydronephrosis and pernephric standing 3. Sepsis 2/2 above resolved 4. T2DM on oral hypoglycemics poorly controlled 5. PVD and h/o OM s/p amputation 6. perianal abscess S/P diverting ileostomy/colostomy 7. Possible revision of BKA. (wound vac and wash out) Plan - Admit to general medicine - abx as per ID, reviewed wound cultures - [place] rectal Surgery f/u. + bowel function, advance diet as tolerated/surgery. - RISS and titrate insulin as needed. - Pain control adressed. optmising pain meds. - Plan for possible BKA washout with wound vac as per Vascular surgery on Wednesday. - Patient is low risk for low risk procedure, patient is medically stable for procedure. - gi/dvt prophyalxis - surgery and vascular surgery f/u.
[2016-08-28 08:00] LABS: ABSOLUTE BASOPHIL COUNT 0.1 /CUMM (0.0-0.2); ABSOLUTE EOSINOPHIL COUNT 0.6 /CUMM (0.0-0.7); ABSOLUTE GRANULOCYTE CT 8.3 /CUMM (1.4-6.5); ABSOLUTE LYMPH COUNT 2.4 /CUMM (1.2-3.4); ABSOLUTE MONOCYTE COUNT 0.9 /CUMM (0.10-0.60); BASOPHIL % 0.6 % (0.0-2.0); GRANULOCYTE % 67.4 % (42.2-75.2); MEAN CORPUSCULAR HGB 27.7 PG (27.0-31.0); MEAN CORPUSCULAR HGB CONC 32.8 G/DL (33.0-37.0); MEAN CORPUSCULAR VOLUME 84.5 FL (80.0-94.0); MEAN PLATELET VOLUME 7.4 FL (7.4-10.4); PLATELET COUNT 412 /CUMM (130-400); RBC DISTRIBUTION WIDTH 17.8 % (11.5-14.5); WHITE BLOOD CELL COUNT 12.3 /CUMM (4.8-10.8)
--- NOTE | 2016-08-28 11:11 | PN- General Surgery ---
See Addendum Subjective Subjective: No acute overnight events reported. Pain manageable. Denies nausea and vomitting. Denies chest pain, shortness of breath, difficulty breathing. Objective Vital Signs and I&Os Vital Signs Date Time Temp Pulse Resp B/P B/P Pulse O2 O2 Flow FiO2 Mean Ox Delivery Rate 08/28 1013 86 128/84 08/28 1012 86 128/84 08/28 0609 98.2 85 18 120/76 96 Room Air 08/27 2211 98.0 84 18 100/62 94 08/27 1420 98.8 80 20 120/80 98 Room Air Intake & Output 08/28 1600 08/28 0800 08/28 0000 08/27 1600 08/27 0800 08/27 0000 Intake Total 520 1350 1100 700 465 Output Total 1550 1250 1750 1450 750 Balance -1030 100 -650 -750 -285 Intake, IV 280 150 300 600 225 Intake, Oral 240 1200 800 100 240 Output, Stool 750 700 400 150 Output, Urine 565 135 2549 1300 750 Physical Exam: General: AAO x3, no acute distress Cardiac: RRR, s1s2 Pulm: C TA bilaterally ABD: Non-distended, gas in bag, stool present, stoma pink and viable Assessment/Plan Assessment/Plan This is a 46 year old male, POD 2 s/p diverting loop ileostomy, progressing well -Continue current pain regimen -Continue low residue diet -Plan for vascular surgical intervention to bka on Wednesday, will be pre-opd, npo pmn wednesday -Discussed with Dr. Arauz Core Measures/Miscellaneous Venous Thromboembolism VTE Risk Factors: Acute medical illness VTE Contraindications: No Contraindications VTE Diagnosis: No VTE Type: NONE VTE Confirmed by (Test): NONE [facility] Is [facility] a Home Med? No Antibiotics Is Patient on Antibiotics? Yes
--- NOTE | 2016-08-28 13:09 | PN- Infect Dx ---
Subjective Subjective: Afebrile without complaints. He notes some discomfort in the perirectal area. Objective Last 24 Hrs of Vital Signs/I&O Vital Signs Date Time Temp Pulse Resp B/P B/P Pulse O2 O2 Flow FiO2 Mean Ox Delivery Rate 08/28 1013 86 128/84 08/28 1012 86 128/84 08/28 0609 98.2 85 18 120/76 96 Room Air 08/27 2211 98.0 84 18 100/62 94 08/27 1420 98.8 80 20 120/80 98 Room Air Intake & Output 08/28 1600 08/28 0800 08/28 0000 Intake Total 520 1350 Output Total 1000 1550 1250 Balance -1000 -1030 100 Intake, IV 280 150 Intake, Oral 240 1200 Output, Stool 750 700 Output, Urine 1000 800 550 Physical Exam Other Physical Findings: He appears comfortable in no acute distress Abdomen is soft, nontender with positive bowel sounds; ileostomy with liquid output Back perirectal fistula clean, with one small area with fibrinous exudate, with no surrounding erythema or purulence; mildly tender on palpation Extremities right BKA stump with several ulcerations, one of which is packed, with no erythema or purulence, nontender to palpation Results Last 24 Hours of Lab Results: Laboratory Tests 08/28 0636 Chemistry Sodium (137 - 145 mmol/L) 137 Potassium (3.5 - 5.1 mmol/L) 4.3 Chloride (98 - 107 mmol/L) 100 Carbon Dioxide (22 - 30 mmol/L) 27 Anion Gap (5 - 16) 9 BUN (9 - 20 mg/dL) 7 L Creatinine (0.7 - 1.2 mg/dL) 0.5 L Estimated GFR (>60 ml/min) > 60 BUN/Creatinine Ratio (7 - 25 %) 14.0 Hematology CBC w Diff NO MAN DIFF REQ WBC (4.8 - 10.8 /CUMM) 12.3 H RBC (4.70 - 6.10 /CUMM) 3.20 L Hgb (14.0 - 18.0 G/DL) 8.9 L Hct (42 - 52 %) 27.0 L MCV (80.0 - 94.0 FL) 84.5 MCH (27.0 - 31.0 PG) 27.7 RDW (11.5 - 14.5 %) 17.8 H Plt Count (130 - 400 /CUMM) 412 H MPV (7.4 - 10.4 FL) 7.4 Gran % (42.2 - 75.2 %) 67.4 Lymphocytes % (20.5 - 51.1 %) 19.7 L Monocytes % (1.7 - 9.3 %) 7.3 Eosinophils % (0 - 5 %) 5.0 Basophils % (0.0 - 2.0 %) 0.6 Absolute Granulocytes (1.4 - 6.5 /CUMM) 8.3 H Absolute Lymphocytes (1.2 - 3.4 /CUMM) 2.4 Absolute Monocytes (0.10 - 0.60 /CUMM) 0.9 H Absolute Eosinophils (0.0 - 0.7 /CUMM) 0.6 Absolute Basophils (0.0 - 0.2 /CUMM) 0.1 PUBS MCHC (33.0 - 37.0 G/DL) 32.8 L Last 24 Hours of Ramin Results: Urine culture August 26 negative Assessment/Plan Impression: Stable status post diverting ileostomy 2 days ago with temperatures remaining normal though white blood cell count is slightly elevated on Unasyn status post washout and debridement of his perineal wound 4 days ago now 9 days status post I&D of a perirectal abscess. His right BKA stump does have several open wounds, and he is scheduled for debridement and possible wound VAC placement on August 31. The right BKA stump does not appear infected but will discuss further with vascular surgery. Suggestion: 1. Await OR on August 31 for right BKA revision 2. Consider need for imaging of the right BKA stump prior to surgery (will discuss) 3. Continue Unasyn
[2016-08-28 14:06] VITALS: BP 130/70
--- NOTE | 2016-08-28 17:24 | Incdntl Nt Psy ---
Incidental Note Notation: Per pastoral care report patient has been requesting to see this lyric writer who is known from previous hospital visits. Attempted to see patient today but was unable to due to him receiving therapeutic touch massage at time of attempted visit. Plan - Would recommend psychiatric consult, please order if primary team feels is appropriate - Will follow up with patient on Wednesday - Patient would likely benefit from antidepressant medication if not otherwise medically contraindicated.
[2016-08-28 22:06] VITALS: BP 130/88
--- NOTE | 2016-08-29 03:49 | NUR ---
PT REFUSES BED ALARM, USES CALL [place].
--- NOTE | 2016-08-29 05:59 | PN- Housestaff ---
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 No fever overnight. No acute shortness of breath or chest pain overnight. Review of Systems Constitutional: Denies: chills, fever. EENTM: Denies: visual changes. Cardiovascular: Denies: chest pain, palpitations. Respiratory: Denies: cough, short of breath. Gastrointestinal: Denies: abdominal pain, nausea, vomiting. Genitourinary: Denies: discharge. Musculoskeletal: Denies: back pain. Objective Last 24 Hrs of Vital Signs/I&O Vital Signs Date Time Temp Pulse Resp B/P B/P Pulse O2 O2 Flow FiO2 Mean Ox Delivery Rate 08/28 2206 97.7 82 20 130/88 98 Room Air 08/28 1406 98.0 78 20 130/70 100 Room Air 08/28 1013 86 128/84 08/28 1012 86 128/84 08/28 0609 98.2 85 18 120/76 96 Room Air Intake & Output 08/29 0800 08/29 0000 08/28 1600 Intake Total 340 850 Output Total 1355 2050 Balance -1015 -1200 Intake, IV 100 130 Intake, Oral 240 720 Output, Stool 880 750 Output, Urine 475 1300 Physical Exam General Appearance: Alert, Oriented X3, Cooperative, No Acute Distress HEENT: Atraumatic Neck: Supple Cardiovascular: Regular Rate, Normal S1, Normal S2 Lungs: Clear to Auscultation, Normal Air Movement Abdomen: Normal Bowel Sounds, Soft, No Tenderness, diverting loop ileostomy with output Neurological: Normal Speech, Normal Tone, Sensation Intact Extremities: right BKA, Intact dressing Vascular: Normal Pulses Current Medications: Current Medications Sig/Angela Start time Last Medication Dose Route Stop Time Status Admin Acetaminophen 650 MG Q6P PRN 08/26 1815 AC PO Amlodipine Besylate 5 MG DAILY 08/27 1000 AC 08/28 PO 1012 Ampicillin Sodium/ 3,000 MG Q6 08/26 2359 AC 08/29 Sulbactam Sodium IV 0531 Sodium Chloride 100 ML Aspirin Buffered 81 MG DAILY 08/27 1000 AC 08/28 PO 1012 Atorvastatin Calcium 5 MG 1700 08/27 1700 AC 08/28 PO 1611 Escitalopram Oxalate 10 MG DAILY 08/27 1000 AC 08/28 PO 1012 Gabapentin 100 MG Q12P PRN 08/26 1815 AC 08/28 PO 1819 Heparin Sodium 5,000 UNIT Q8 08/26 2200 AC 08/29 (Porcine) SC 0531 Hydromorphone HCl 1 MG Q4 HRS NEEDED PRN 08/26 1900 AC 08/29 IV 0407 Hydromorphone HCl 0.5 MG Q4P PRN 08/26 1845 AC IV Insulin Aspart 0 TIDAC 08/27 0800 AC 08/28 SC 1732 Insulin Detemir 8 UNITS BID 08/26 2200 AC 08/28 SC 2113 Lisinopril 40 MG DAILY 08/27 1000 AC 08/28 PO 1013 Loperamide HCl 4 MG TIDAC 08/28 1700 AC 08/28 PO 1611 Melatonin 5 MG AT BEDTIME 08/26 2200 AC 08/28 PO 2104 Nystatin 1 DANIELLE BID 08/23 1110 AC 08/28 TOP 2113 Sodium Hypochlorite 1 DANIELLE BID 08/26 2200 DC 08/28 TOP 1012 Last 24 Hrs of Lab/Ramin Results Last 24 Hrs of Labs/Mics: Laboratory Tests 08/28/16 0636: Anion Gap 9, Estimated GFR > 60, BUN/Creatinine Ratio 14.0, CBC w Diff NO MAN DIFF REQ, RBC 3.20 L, MCV 84.5, MCH 27.7, RDW 17.8 H, MPV 7.4, Gran % 67.4, Lymphocytes % 19.7 L, Monocytes % 7.3, Eosinophils % 5.0, Basophils % 0.6, Absolute Granulocytes 8.3 H, Absolute Lymphocytes 2.4, Absolute Monocytes 0.9 H, Absolute Eosinophils 0.6, Absolute Basophils 0.1, PUBS MCHC 32.8 L Lines/Diet/Fluids Lines: peripheral lines Restraints: none Assessment/Plan Assessment: 46-year-old man with past medical history significant for hypertension, insulin- dependent diabetes mellitus, and peripheral vascular disease, Group B strep sepsis secondary to a gangrenous right great toe status post amputation and 1 month course of Unasyn, osteomyelitis status post right BKA came to emergency department for chief complaint of one-week history of perirectal pain that is progressive and aggravated with sitting and bowel movement. Vitals on admission, patient was febrile to 102.2. Laboratory data showed leukocytosis of 20,000. CT of the abdomen and pelvis showed Abnormal appearance along the left gluteal cleft is possibly associated with a left perianal fistula extending to the posterior skin surface and Increased left hydronephrosis. Increased periureteral stranding. No calculi. Similar appearance of bilateral perinephric stranding. Patient was admitted on general medicine floor for the management of following problems Perianal abscess status post debridement 2 Surgical consult was obtained and patient was evaluated by surgical team. Patient underwent examination under anesthesia and debridment. Patient is currently 10 days status post first I&D of a perirectal abscess and day 5 status post second I&D. ID consult was placed as patient was recently treated for urinary tract infection in the facility and also a few papules were noticed on patient's upper extremity. UA sample is not great as it contains a lot of epithelial cells. Urine culture growing yeast, most likely colonization. As per ID recommendation antibiotics were switched from ciprofloxacin and metronidazole to metronidazole and ceftriaxone. OR cultures grew Group B strep, Enterococcus and gram-negative rods, and antibiotics were switched as per ID recommendation to Zosyn and metronidazole and ceftriaxone was discontinued. Zosyn has been discontinued and it was switched to IV Unasyn based on the sensitivity of organisms identified in OR cultures (Proteus Mirabilis, E Coli, Klebsiella Pneumoniae, Enterococcus, anerobes and Beta Strep Group B). His WBC is pending today. General surgery did second Look with washout and a debridment for the Necrotizing perineal soft tissue infection in the operating room today. Patient needed a diverting stoma because of persistent fecal soilage. Few days back patient had a bowel movement which was soiled with blood. Surgical team was called to assess the wound. As per assessment, bowel movement pulled off the clots from the surgical area, dressing was done and area was repacked. Continue perirectal 1/4 dakins packing BID Laparoscopic diverting loop ileostomy Patient is currently postoperative day 3. Follow-up surgical recommendations for ileostomy care Continue Unasyn as per ID recommendations History of osteomyelitis status post right BKA Patient has past medical history significant for osteomyelitis and underwent below knee amputation on 07/20/16. Patient is scheduled to go to operating room on 08/31/2016 as per vascular surgery for debridement washout and possible wound VAC. Left hydronephrosis Although patient has mild left hydronephrosis on CAT scan, his renal function tests are within acceptable limit. Creatine this morning is pending. History of diabetes mellitus Continue Accu-Cheks TIDAC Continue Novolog sliding scale TIDAC We will continue his levemir dose of 8 units BID tonight and start Novolog sliding scale. Adjust the long-acting insulin to 17 units and eventually to 34 units as Accu- Cheks improve Patient is full code Patient is on heparin for DVT prophylaxis Patient is on diabetic diet Problem List: 1. S/P BKA (below knee amputation) unilateral 2. Perirectal fistula 3. Perirectal abscess 4. Ileostomy in place Pain Ratin Pain Location: Perirectal area Alt Method for Pain Treatment: Reiki Therapy, Theraputic Touch Pain Goal: Pain 4 or less Pain Plan: Continue current pain management with therapeutic patch Tomorrow's Labs & Rationales: CBC for leukocytosis BEP for electrolyte abnormalities DVT/Prophylaxis: pharmacological ALISON CHAKRABORTY 08/29/16 1249: Attending MD Review Statement Attending Statement Attending MD Statement: examined this patient, discuss w/resident/PA/STATION MECHANIC HELPER, agreed w/resident/PA/STATION MECHANIC HELPER, discussed with family, reviewed EMR data (avail), discussed with nursing, discussed with case mgmt, reviewed images, amended to note Attending Assessment/Plan: ASSESSMENT 1. s/p debridement of samir gangrene X 2 2. Left hydronephrosis and pernephric standing 3. Sepsis 2/2 above resolved 4. T2DM on oral hypoglycemics poorly controlled 5. PVD and h/o OM s/p amputation 6. perianal abscess S/P diverting ileostomy/colostomy 7. Possible revision of BKA. (wound vac and wash out) Plan - Admit to general medicine - abx as per ID, reviewed wound cultures - [place] rectal Surgery f/u. + bowel function, advance diet as tolerated/surgery. - RISS and titrate insulin as needed. - Pain control adressed. optmising pain meds. - Plan for possible BKA washout with wound vac as per Vascular surgery on Wednesday. - Patient is low risk for low risk procedure, patient is medically stable for procedure. - gi/dvt prophyalxis - surgery and vascular surgery f/u.
[2016-08-29 06:33] VITALS: BP 126/80
[2016-08-29 08:12] LABS: ABSOLUTE BASOPHIL COUNT 0.1 /CUMM (0.0-0.2); ABSOLUTE EOSINOPHIL COUNT 0.7 /CUMM (0.0-0.7); ABSOLUTE MONOCYTE COUNT 0.9 /CUMM (0.10-0.60); BASOPHIL % 0.6 % (0.0-2.0); EOSINOPHIL % 6.2 % (0-5); GRANULOCYTE % 59.4 % (42.2-75.2); HEMATOCRIT 26.5 % (42-52); MEAN CORPUSCULAR HGB 27.6 PG (27.0-31.0); MEAN CORPUSCULAR HGB CONC 32.3 G/DL (33.0-37.0); MEAN CORPUSCULAR VOLUME 85.3 FL (80.0-94.0); MEAN PLATELET VOLUME 7.6 FL (7.4-10.4); PLATELET COUNT 436 /CUMM (130-400); RBC DISTRIBUTION WIDTH 17.9 % (11.5-14.5); RED BLOOD CELL CT 3.11 /CUMM (4.70-6.10); WHITE BLOOD CELL COUNT 11.8 /CUMM (4.8-10.8)
--- NOTE | 2016-08-29 09:02 | PN- Student ---
DESIRAE PABLO 08/29/16 0848: Subjective Subjective: No complaints at this time. Denies fever, chest/abdominal pain, SOB, headache, dizziness. Pain is adequately managed, but is fearful to stand due to open perirectal wound. Tolerating low residue diet without nausea/vomiting. Stoma was making watery stool yesterday, but since has become more formed after administration of immodium. Objective Objective: Vital Signs Result Date Time Pulse Ox 98 08/29 632 B/P 126/80 08/29 632 O2 Delivery Room Air 08/29 632 Temp 97.6 08/29 632 Pulse 80 08/29 632 Resp 20 08/29 632 O2 Flow Rate 1.0L 08/26 1930 Intake & Output 08/29 0000 08/28 1600 08/28 0800 Intake Total 340 850 520 Output Total 680 2050 1550 Balance -340 -1200 -1030 Intake, IV 100 130 280 Intake, Oral 240 720 240 Output, Stool 680 750 750 Output, Urine 1300 800 General: alert, awake, oriented, NAD Lungs: CTAB, no wheeze/rhonchi/rales Heart: S1 S2, RRR Abdomen: normoactive bowel sounds, non-distended, slightly tender around laparoscopic incision sites, but not tender near stoma. Dressings clean, dry and intact. Stoma is pink and viable, no inflammation/erythema, bag contains brown, soft, slightly watery stool Extremities: moves all extremities, no calf tenderness BKA: non-tender, dressing clean, dry and intact Assessment/Plan Assessment: This is a 46 y/o male POD # 2 laparoscopic diverting loop ileostomy with PMH significant for infected rectal fistula, dm, om, R bka. Is returned to full bowel function, tolerating diet well and pain well controlled. Plan: Diet: Continue low residue diet Pain: Continue current pain management regimen Abx: unasyn for infection DVT ppx: ALPS on left calf, OOB to chair, subq heparin OR on Wednesday with Dr. Harrison - sal tomorrow Perirectal wound: Dakins packing/dressing change bid Ileostomy: change bag PRN, daily wound care Continue fingersticks TIDAC Will discuss with attending ANGÉLICA DRUMMOND 08/29/16 0956: Assessment/Plan Plan: agree with above PA-S note will d/w pre-op for wednesday, OR with (vascular) for debridement of amp
--- NOTE | 2016-08-29 13:49 | PN- General Surgery ---
Subjective Subjective: feels well. eating. stoma working. Does get a gas pain before stoma puts out. Using some immodium to slow things down Objective Vital Signs and I&Os Vital Signs Date Time Temp Pulse Resp B/P B/P Pulse O2 O2 Flow FiO2 Mean Ox Delivery Rate 08/29 1034 122/80 08/29 1034 122/80 08/29 0633 97.6 80 20 126/80 98 Room Air 08/28 2206 97.7 82 20 130/88 98 Room Air 08/28 1406 98.0 78 20 130/70 100 Room Air Intake & Output 08/29 1600 08/29 0800 08/29 0000 08/28 1600 08/28 0800 08/28 0000 Intake Total 540 340 121 335 1311 Output Total 150 1355 2050 1550 1250 Balance 390 -1015 -1200 -1030 100 Intake, IV 300 100 130 280 150 Intake, Oral 240 240 611 972 0711 Output, Stool 150 880 750 750 700 Output, Urine 475 1300 800 550 Physical Exam Abdomen: soft, non-tender, stoma working Assessment/Plan Assessment/Plan doing well w effective diversion. No fever. GI tract functioning. Cont abx and wound care. Core Measures/Miscellaneous Venous Thromboembolism VTE Risk Factors: Acute medical illness VTE Contraindications: No Contraindications VTE Diagnosis: No VTE Type: NONE VTE Confirmed by (Test): NONE Beta [place] Is Beta [place] a Home Med? No Antibiotics Is Patient on Antibiotics? Yes
[2016-08-29 14:12] VITALS: BP 130/80
[2016-08-29 21:44] VITALS: BP 130/78
[2016-08-30 06:44] VITALS: BP 128/70
--- NOTE | 2016-08-30 07:23 | PN- Housestaff ---
HADLEY PERKINS,[facility] 08/30/16 0723: Subjective Follow-up For: Perianal Fistula Subjective: Mr. Wilburn was seen and examined this morning. He states that he feels good and his pain is currently under control. Patient states he continues to experience abdominal pain and Rectal abscess pain. Does state pain is being controlled with pain medications and is happy with regimen. He was also given some Imodium which has decreased his stool output. Fiance was at bedside. Denies fever, chills, nausea, vomiting. Review of Systems Constitutional: Reports: see HPI. Objective Last 24 Hrs of Vital Signs/I&O Vital Signs Date Time Temp Pulse Resp B/P B/P Pulse O2 O2 Flow FiO2 Mean Ox Delivery Rate 08/30 0644 98.1 80 20 128/70 95 Room Air 08/29 2144 98.4 82 20 130/78 95 Room Air 08/29 1412 97.9 79 18 130/80 95 Room Air 08/29 1034 122/80 08/29 1034 122/80 Intake & Output 08/30 1600 08/30 0800 08/30 0000 Intake Total 420 630 Output Total 225 1325 Balance 195 -695 Intake, IV 300 150 Intake, Oral 120 480 Output, Stool 225 50 Output, Urine 1275 Physical Exam General Appearance: Alert, Cooperative, No Acute Distress Cardiovascular: Regular Rate, Normal S1, Normal S2, No Murmurs Lungs: Clear to Auscultation Abdomen: Normal Bowel Sounds, Soft, No Tenderness, Distended abdomen. Neurological: Normal Speech Extremities: Right BKA. No abnormalities noted. Current Medications: Current Medications Sig/Angela Start time Last Medication Dose Route Stop Time Status Admin Acetaminophen 650 MG Q6P PRN 08/26 1815 AC PO Amlodipine Besylate 5 MG DAILY 08/27 1000 AC 08/30 PO 0807 Ampicillin Sodium/ 3,000 MG Q6 08/26 2359 AC 08/30 Sulbactam Sodium IV 0506 Sodium Chloride 100 ML Aspirin Buffered 81 MG DAILY 08/27 1000 AC 08/30 PO 0807 Atorvastatin Calcium 5 MG 1700 08/27 1700 AC 08/29 PO 1601 Escitalopram Oxalate 10 MG DAILY 08/27 1000 AC 08/30 PO 0807 Gabapentin 100 MG Q12P PRN 08/26 1815 AC 08/30 PO 0807 Heparin Sodium 5,000 UNIT Q8 08/26 2200 AC 08/30 (Porcine) SC 0610 Hydromorphone HCl 1 MG Q4 HRS NEEDED PRN 08/26 1900 AC 08/30 IV 0805 Hydromorphone HCl 0.5 MG Q4P PRN 08/26 1845 IV Insulin Aspart 0 TIDAC 08/27 0800 AC 08/29 SC 1730 Insulin Detemir 8 UNITS BID 08/26 2200 AC 08/30 SC 0855 Lisinopril 40 MG DAILY 08/27 1000 AC 08/30 PO 0807 Loperamide HCl 4 MG TIDAC 08/28 1700 AC 08/30 PO 0807 Melatonin 5 MG AT BEDTIME 08/26 220 AC 08/29 PO 2232 Nystatin 1 DANIELLE BID 08/23 1110 08/29 [facility] 1036 Assessment/Plan Assessment: 46-year-old man with past medical history significant for hypertension, insulin- dependent diabetes mellitus, and peripheral vascular disease, Group B strep sepsis secondary to a gangrenous right great toe status post amputation and 1 month course of Unasyn, osteomyelitis status post right BKA came to emergency department for chief complaint of one-week history of perirectal pain that is progressive and aggravated with sitting and bowel movement. Vitals on admission, patient was febrile to 102.2. Laboratory data showed leukocytosis of 20,000. CT of the abdomen and pelvis showed Abnormal appearance along the left gluteal cleft is possibly associated with a left perianal fistula extending to the posterior skin surface and Increased left hydronephrosis. Increased periureteral stranding. No calculi. Similar appearance of bilateral perinephric stranding. Patient was admitted on general medicine floor for the management of following problems Perianal abscess status post debridement 3 Surgical consult was obtained and patient was evaluated by surgical team. Patient underwent examination under anesthesia and debridment. Patient is currently 10 days status post first I&D of a perirectal abscess and day 5 status post second I&D. ID consult was placed as patient was recently treated for urinary tract infection in the facility and also a few papules were noticed on patient's upper extremity. UA sample is not great as it contains a lot of epithelial cells. Urine culture growing yeast, most likely colonization. As per ID recommendation antibiotics were switched from ciprofloxacin and metronidazole to metronidazole and ceftriaxone. OR cultures grew Group B strep, Enterococcus and gram-negative rods, and antibiotics were switched as per ID recommendation to Zosyn and metronidazole and ceftriaxone was discontinued. Zosyn has been discontinued and it was switched to IV Unasyn based on the sensitivity of organisms identified in OR cultures (Proteus Mirabilis, E Coli, Klebsiella Pneumoniae, Enterococcus, anerobes and Beta Strep Group B). His WBC is pending today. General surgery did second Look with washout and a debridment for the Necrotizing perineal soft tissue infection in the operating room today. Patient needed a diverting stoma because of persistent fecal soilage. Few days back patient had a bowel movement which was soiled with blood. Surgical team was called to assess the wound. As per assessment, bowel movement pulled off the clots from the surgical area, dressing was done and area was repacked. Continue perirectal 1/4 dakins packing BID Laparoscopic diverting loop ileostomy Patient is currently postoperative day 4. Follow-up surgical recommendations for ileostomy care Continue Unasyn as per ID recommendations History of osteomyelitis status post right BKA Patient has past medical history significant for osteomyelitis and underwent below knee amputation on 07/20/16. Patient is scheduled to go to operating room on 08/31/2016 as per vascular surgery for debridement washout and possible wound VAC. Will get labs in AM. Left hydronephrosis Although patient has mild left hydronephrosis on CAT scan, his renal function tests are within acceptable limit. Creatine this morning is pending. History of diabetes mellitus [id number] Continue Accu-Cheks TIDAC Continue Novolog sliding scale TIDAC We will continue his levemir dose of 8 units BID Novolog sliding scale. NPO ovenight for procedure in AM Patient is full code Patient is on heparin for DVT prophylaxis Patient is on diabetic diet Problem List: 1. Perirectal abscess 2. S/P BKA (below knee amputation) unilateral 3. Ileostomy in place 4. Depression 5. Insulin dependent type 2 diabetes mellitus Pain Ratin Pain Location: Abdominal Pain Goal: Remain pain free Pain Plan: See Above. Tomorrow's Labs & Rationales: CBC: Monitor WBC BEP: Monitor electrolytes Pt/PTT: Or tomorrow for wash out. ALISON CHAKRABORTY 08/30/16 0921: Attending MD Review Statement Attending Statement Attending MD Statement: examined this patient, discuss w/resident/PA/SERVICE OR WORK DISPATCHER CHIEF, agreed w/resident/PA/SERVICE OR WORK DISPATCHER CHIEF, discussed with family, reviewed EMR data (avail), discussed with nursing, discussed with case mgmt, reviewed images, amended to note Attending Assessment/Plan: ASSESSMENT 1. s/p debridement of samir gangrene X 2 2. Left hydronephrosis and pernephric standing 3. Sepsis 2/2 above resolved 4. T2DM on oral hypoglycemics poorly controlled 5. PVD and h/o OM s/p amputation 6. perianal abscess S/P diverting ileostomy/colostomy 7. Possible revision of BKA. (wound vac and wash out) Plan - Admit to general medicine - abx as per ID, reviewed wound cultures - [place] rectal Surgery f/u. + bowel function, advance diet as tolerated/surgery. - RISS and titrate insulin as needed. - Pain control adressed. optmising pain meds. - Plan for possible BKA washout with wound vac as per Vascular surgery on Wednesday. - Patient is low risk for low risk procedure, patient is medically stable for procedure. - gi/dvt prophyalxis - surgery and vascular surgery f/u.
--- NOTE | 2016-08-30 08:27 | PN- General Surgery ---
Subjective Subjective: The patient was seen this morning postoperatively. He complains of some mild peristomal soreness but is otherwise comfortable. He is tolerating a diet without nausea and has no other complaints at the current time. Objective Vital Signs and I&Os Vital Signs Date Time Temp Pulse Resp B/P B/P Pulse O2 O2 Flow FiO2 Mean Ox Delivery Rate 08/30 0644 98.1 80 20 128/70 95 Room Air 08/29 2144 98.4 82 20 130/78 95 Room Air 08/29 1412 97.9 79 18 130/80 95 Room Air 08/29 1034 122/80 08/29 1034 122/80 Intake & Output 08/30 1600 08/30 0800 08/30 0000 08/29 1600 08/29 0800 08/29 0000 Intake Total 420 630 580 540 340 Output Total 225 1325 590 724 8686 Balance 195 -695 -220 390 -1015 Intake, IV 300 150 100 300 100 Intake, Oral 120 480 480 240 240 Output, Stool 225 50 200 150 880 Output, Urine 1275 600 475 Physical Exam: Gen.: Alert and in no obvious distress Skin: Warm and dry Abdomen: Soft, obese, appropriate incisional tenderness, bowel sounds positive. Loop ileostomy is pink and viable with positive liquid stool in the bag. Extremities: Right BKA stump with several ulcerations and packing medially. There was no significant drainage or erythema surrounding the stump. Left lower extremities warm without calf tenderness or significant edema. Assessment/Plan Assessment/Plan Assessment: 46-year-old male status post I&D/debridement of perirectal infection and subsequent diverting loop ileostomy. Postoperative the patient is progressing as expected, his pain is under adequate control, and he is tolerating a diet without nausea. The ileostomy is functioning adequately and his perirectal infection is slowly improving. Recommendation: The patient should be made nothing by mouth past midnight's for I and D/ debridement of right BKA stump Tight glycemic control Continue current pain regiment Daily ileostomy care Strict I's and O's GI and DVT prophylaxis
[2016-08-30 13:57] VITALS: BP 110/60
[2016-08-30 22:34] VITALS: BP 102/70
[2016-08-31 07:24] VITALS: BP 130/80
--- NOTE | 2016-08-31 07:30 | PN- Housestaff ---
KHRIS CRYSTAL MD,SUNITA 08/31/16 0729: Subjective Follow-up For: Perirectal abscess Samir's gangrene s/p debridement 2 Left hydronephrosis Status post Laparoscopic diverting loop ileostomy Washout and wound VAC plan for Right-sided below knee amputation Complaints: no complaints Subjective: Patient did not have any complaints of chest pain or shortness of breath overnight. He remained afebrile Review of Systems Constitutional: Denies: chills, fever. EENTM: Denies: visual changes. Cardiovascular: Denies: chest pain, palpitations. Respiratory: Denies: cough, short of breath. Gastrointestinal: Denies: abdominal pain, nausea, vomiting. Objective Last 24 Hrs of Vital Signs/I&O Vital Signs Date Time Temp Pulse Resp B/P B/P Pulse O2 O2 Flow FiO2 Mean Ox Delivery Rate 08/31 0724 98.6 69 20 130/80 96 Room Air 08/30 2234 98.1 80 20 102/70 97 Room Air 08/30 1357 97.9 85 18 110/60 95 Room Air Intake & Output 08/31 1600 08/31 0800 08/31 0000 Intake Total 150 Output Total 650 975 Balance -650 -825 Intake, IV 150 Output, Stool 225 Output, Urine 650 750 Physical Exam General Appearance: Alert, Oriented X3, Cooperative, No Acute Distress HEENT: Atraumatic Neck: Supple Cardiovascular: Regular Rate, Normal S1, Normal S2 Lungs: Clear to Auscultation, Normal Air Movement Abdomen: Normal Bowel Sounds, Soft, Diverting loop ileostomy with output, watery stool Neurological: Normal Speech, Normal Tone, Sensation Intact Extremities: No Edema, Right Below knee amputation Current Medications: Current Medications Sig/Angela Start time Last Medication Dose Route Stop Time Status Admin Acetaminophen 650 MG Q6P PRN 08/26 1815 AC PO Amlodipine Besylate 5 MG DAILY 08/27 1000 AC 08/30 PO 0807 Ampicillin Sodium/ 3,000 MG Q6 08/26 2359 AC 08/31 Sulbactam Sodium IV 0621 Sodium Chloride 100 ML Aspirin Buffered 81 MG DAILY 08/27 1000 AC 08/30 PO 0807 Atorvastatin Calcium 5 MG 1700 08/27 1700 AC 08/30 PO 1551 Escitalopram Oxalate 10 MG DAILY 08/27 1000 AC 08/30 PO 0807 Gabapentin 100 MG Q12P PRN 08/26 1815 AC 08/30 PO 2110 Heparin Sodium 5,000 UNIT Q8 08/26 2200 AC 08/30 (Porcine) SC 2109 Hydromorphone HCl 0.4 MG ONCE ONE 08/30 1345 DC 08/30 IV 08/30 1346 1350 Hydromorphone HCl 1 MG Q4 HRS NEEDED PRN 08/26 1900 AC 08/31 IV 0500 Hydromorphone HCl 0.5 MG Q4P PRN 08/26 1845 AC IV Insulin Aspart 0 TIDAC 08/27 0800 AC 08/30 SC 1202 Insulin Detemir 8 UNITS BID 08/26 2200 AC 08/30 SC 2109 Lisinopril 40 MG DAILY 08/27 1000 AC 08/30 PO 0807 Loperamide HCl 4 MG TIDAC 08/28 1700 AC 08/30 PO 1551 Melatonin 5 MG AT BEDTIME 08/26 2200 AC 08/30 PO 2109 Morphine Sulfate 2 MG ONCE ONE 08/30 1830 DC 08/30 IV 08/30 1831 1834 Nystatin 1 DANIELLE BID 08/23 1110 DC 08/29 TOP 1036 Last 24 Hrs of Lab/Ramin Results Last 24 Hrs of Labs/Mics: Laboratory Tests 08/31/16 0730: Sodium Pending, Potassium Pending, Chloride Pending, Carbon Dioxide Pending, Anion Gap Pending, BUN Pending, Creatinine Pending, BUN/Creatinine Ratio Pending , PT Pending, INR Pending, APTT Pending, CBC w Diff Pending, WBC Pending, RBC Pending, Hgb Pending, Hct Pending, MCV Pending, MCH Pending, RDW Pending, Plt Count Pending, MPV Pending, PUBS MCHC Pending Lines/Diet/Fluids Lines: peripheral lines Restraints: none Assessment/Plan Assessment: 46-year-old man with past medical history significant for hypertension, insulin- dependent diabetes mellitus, and peripheral vascular disease, Group B strep sepsis secondary to a gangrenous right great toe status post amputation and 1 month course of Unasyn, osteomyelitis status post right BKA came to emergency department for chief complaint of one-week history of perirectal pain that is progressive and aggravated with sitting and bowel movement. Vitals on admission, patient was febrile to 102.2. Laboratory data showed leukocytosis of 20,000. CT of the abdomen and pelvis showed Abnormal appearance along the left gluteal cleft is possibly associated with a left perianal fistula extending to the posterior skin surface and Increased left hydronephrosis. Increased periureteral stranding. No calculi. Similar appearance of bilateral perinephric stranding. Patient was admitted on general medicine floor for the management of following problems Perianal abscess status post debridement 3 Surgical consult was obtained and patient was evaluated by surgical team. Patient underwent examination under anesthesia and debridment. Patient is currently 12 days status post first I&D of a perirectal abscess and day 7 status post second I&D. ID consult was placed as patient was recently treated for urinary tract infection in the facility and also a few papules were noticed on patient's upper extremity. UA sample is not great as it contains a lot of epithelial cells. Urine culture growing yeast, most likely colonization. As per ID recommendation antibiotics were switched from ciprofloxacin and metronidazole to metronidazole and ceftriaxone. OR cultures grew Group B strep, Enterococcus and gram-negative rods, and antibiotics were switched as per ID recommendation to Zosyn and metronidazole and ceftriaxone was discontinued. Zosyn has been discontinued and it was switched to IV Unasyn based on the sensitivity of organisms identified in OR cultures (Proteus Mirabilis, E Coli, Klebsiella Pneumoniae, Enterococcus, anerobes and Beta Strep Group B). His WBC is pending today. General surgery did second Look with washout and a debridment for the Necrotizing perineal soft tissue infection in the operating room today. Patient needed a diverting stoma because of persistent fecal soilage. Few days back patient had a bowel movement which was soiled with blood. Surgical team was called to assess the wound. As per assessment, bowel movement pulled off the clots from the surgical area, dressing was done and area was repacked. Continue perirectal 1/4 dakins packing BID Laparoscopic diverting loop ileostomy Patient is currently postoperative day 5. Follow-up surgical recommendations for ileostomy care Continue Unasyn as per ID recommendations History of osteomyelitis status post right BKA Patient has past medical history significant for osteomyelitis and underwent below knee amputation on 07/20/16. Patient is scheduled to go to operating room on 08/31/2016 as per vascular surgery for debridement washout and possible wound VAC. Left hydronephrosis Although patient has mild left hydronephrosis on CAT scan, his renal function tests are within acceptable limit. Creatine this morning is pending. History of diabetes mellitus FS,175,140 Continue Accu-Cheks TIDAC Continue Novolog sliding scale TIDAC We will continue his levemir dose of 8 units BID Novolog sliding scale. Patient was NPO ovenight for procedure in AM Patient is full code Patient is on heparin for DVT prophylaxis Patient is on diabetic diet Problem List: 1. S/P BKA (below knee amputation) unilateral 2. Ileostomy in place 3. Perirectal fistula 4. Perirectal abscess 5. Insulin dependent type 2 diabetes mellitus 6. Uncontrolled diabetes mellitus Pain Ratin Pain Location: Perirectal area Pain Goal: Pain 4 or less Pain Plan: Continue current pain management Tomorrow's Labs & Rationales: CBC for leukocytosis BEP to monitor electrolytes DVT/Prophylaxis: pharmacological ALIOSN CHAKRABORTY 08/31/16 0913: Attending MD Review Statement Attending Statement Attending MD Statement: examined this patient, discuss w/resident/PA/LOCATOR, agreed w/resident/PA/LOCATOR, discussed with family, reviewed EMR data (avail), discussed with nursing, discussed with case mgmt, reviewed images, amended to note Attending Assessment/Plan: ASSESSMENT 1. s/p debridement of samir gangrene X 2 2. Left hydronephrosis and pernephric standing 3. Sepsis 2/2 above resolved 4. T2DM on oral hypoglycemics poorly controlled 5. PVD and h/o OM s/p amputation 6. perianal abscess S/P diverting ileostomy/colostomy 7. Possible revision of BKA. (wound vac and wash out) Plan - Admit to general medicine - abx as per ID, reviewed wound cultures - [place] rectal Surgery f/u. + bowel function, advance diet as tolerated/surgery. - RISS and titrate insulin as needed. - Pain control adressed. optmising pain meds. - Plan for possible BKA washout with wound vac as per Vascular surgery on Wednesday. - Patient is low risk for low risk procedure, patient is medically stable for procedure. - gi/dvt prophyalxis - surgery and vascular surgery f/u.
[2016-08-31 08:22] LABS: PT 12.4 SEC (9.4-12.5); PTT 33 SEC (25-37)
[2016-08-31 08:37] LABS: ABSOLUTE BASOPHIL COUNT 0 /CUMM (0.0-0.2); ABSOLUTE EOSINOPHIL COUNT 0.6 /CUMM (0.0-0.7); ABSOLUTE GRANULOCYTE CT 6.1 /CUMM (1.4-6.5); ABSOLUTE LYMPH COUNT 2.1 /CUMM (1.2-3.4); ABSOLUTE MONOCYTE COUNT 0.8 /CUMM (0.10-0.60); BASOPHIL % 0.5 % (0.0-2.0); EOSINOPHIL % 6.5 % (0-5); GRANULOCYTE % 63.3 % (42.2-75.2); HEMATOCRIT 28.8 % (42-52); MEAN CORPUSCULAR HGB CONC 31.7 G/DL (33.0-37.0); MEAN CORPUSCULAR VOLUME 85.3 FL (80.0-94.0); MEAN PLATELET VOLUME 7.5 FL (7.4-10.4); PLATELET COUNT 404 /CUMM (130-400); RBC DISTRIBUTION WIDTH 18.1 % (11.5-14.5); RED BLOOD CELL CT 3.37 /CUMM (4.70-6.10); WHITE BLOOD CELL COUNT 9.7 /CUMM (4.8-10.8)
--- NOTE | 2016-08-31 09:32 | PN- General Surgery ---
Surgical Brief Attending Note Brief Attending Note: Patient tolerating diet Stoma functioning well Okay to discharge from my standpoint Needs continued richard-nal wound care He is to follow-up in my office in one week for routine follow-up and stoma bridge removal
--- NOTE | 2016-08-31 10:37 | NUR ---
PT TRANSPORTED TO OR. WOUND VAC SENT. GLASSES IN PLACE FOR CONSENT PURPOSES.
[2016-08-31 13:25] VITALS: BP 112/70
--- NOTE | 2016-08-31 13:25 | NUR ---
RETURNED FROM OR. A & O X 3. ON RA. VSS. C/O PAIN 09/14 BUT TO ABDOMEN. NO RLE PAIN. WOUND VAC IN PLACE TO RIGHT STUMP. WILL MONITOR.
[2016-08-31 14:18] VITALS: BP 110/70
--- NOTE | 2016-08-31 15:01 | PN- Infect Dx ---
Subjective Subjective: Afebrile. He feels well with no complaints. Objective Last 24 Hrs of Vital Signs/I&O Vital Signs Date Time Temp Pulse Resp B/P B/P Pulse O2 O2 Flow FiO2 Mean Ox Delivery Rate 08/31 1418 Room Air Room Air 08/31 1418 97.7 71 20 110/70 94 Room Air 08/31 1349 Room Air Room Air 08/31 1348 98 Room Air 08/31 1325 98.0 74 16 112/70 94 Room Air 08/31 0724 98.6 69 20 130/80 96 Room Air 08/30 2234 98.1 80 20 102/70 97 Room Air Intake & Output 08/31 1600 08/31 0800 08/31 0000 Intake Total 260 150 Output Total 650 150 975 Balance -650 110 -825 Intake, IV 260 150 Intake, Oral 0 Output, Stool 150 225 Output, Urine 650 0 750 Physical Exam Other Physical Findings: He appears comfortable in no acute distress Abdomen is soft, nontender with positive bowel sounds; semiformed stool in the colostomy Extremities right BKA stump dressing intact Results Last 24 Hours of Lab Results: Laboratory Tests 08/31 0730 Chemistry Sodium (137 - 145 mmol/L) 139 Potassium (3.5 - 5.1 mmol/L) 4.8 Chloride (98 - 107 mmol/L) 102 Carbon Dioxide (22 - 30 mmol/L) 30 Anion Gap (5 - 16) 8 BUN (9 - 20 mg/dL) 9 Creatinine (0.7 - 1.2 mg/dL) 0.5 L Estimated GFR (>60 ml/min) > 60 BUN/Creatinine Ratio (7 - 25 %) 18.0 Coagulation PT (9.4 - 12.5 SEC) 12.4 INR (0.90 - 1.17) 1.18 H APTT (25 - 37 SEC) 33 Hematology CBC w Diff NO MAN DIFF REQ WBC (4.8 - 10.8 /CUMM) 9.7 RBC (4.70 - 6.10 /CUMM) 3.37 L Hgb (14.0 - 18.0 G/DL) 9.1 L Hct (42 - 52 %) 28.8 L MCV (80.0 - 94.0 FL) 85.3 MCH (27.0 - 31.0 PG) 27.0 RDW (11.5 - 14.5 %) 18.1 H Plt Count (130 - 400 /CUMM) 404 H MPV (7.4 - 10.4 FL) 7.5 Gran % (42.2 - 75.2 %) 63.3 Lymphocytes % (20.5 - 51.1 %) 21.5 Monocytes % (1.7 - 9.3 %) 8.2 Eosinophils % (0 - 5 %) 6.5 H Basophils % (0.0 - 2.0 %) 0.5 Absolute Granulocytes (1.4 - 6.5 /CUMM) 6.1 Absolute Lymphocytes (1.2 - 3.4 /CUMM) 2.1 Absolute Monocytes (0.10 - 0.60 /CUMM) 0.8 H Absolute Eosinophils (0.0 - 0.7 /CUMM) 0.6 Absolute Basophils (0.0 - 0.2 /CUMM) 0 PUBS MCHC (33.0 - 37.0 G/DL) 31.7 L Last 24 Hours of Ramin Results: No recent cultures Assessment/Plan Impression: Stable status post diverting ileostomy 5 days ago and revision of his right BKA stump earlier today with temperatures and white blood cell count normal on Unasyn now 1 week status post washout and debridement of his perineal wound and 12 days status post I&D of a perirectal abscess. Suggestion: 1. Discontinue Unasyn and follow off antibiotics
--- NOTE | 2016-08-31 15:04 | Patient Discharge Instructions ---
Discharge Instructions General Discharge Information You were seen/treated for: Perirectal abscess Carolina's gangrene s/p debridement 2 Left hydronephrosis Status post Laparoscopic diverting loop ileostomy Washout and wound VAC for Right-sided below knee amputation Other wound care: Vac changes will need to be performed every Wednesday at the [facility]. Vac changes will be done 1-2 other days of the week at rehab or at home as arranged. Special Instructions: Follow-up with Dr. Arauz, colorectal surgeon after discharge Follow-up with vascular surgery, after discharge Follow-up with primary care in a week after discharge Diet Continue normal diet: Yes Recommended Diet: Diabetic Acute Coronary Syndrome Inclusion Criteria At DC or during hospital stay patient has or had the following: ACS DIAGNOSIS No Discharge Core Measures Meds if any: Prescribed or Continued at Discharge Meds if any: NOT Prescribed or Continued at Discharge Congestive Heart Failure Inclusion Criteria At DC or during hospital stay patient has or had the following: CHF DIAGNOSIS No Discharge Core Measures Meds if any: Prescribed or Continued at Discharge Meds if any: NOT Prescribed or Continued at Discharge Cerebrovascular accident Inclusion Criteria At DC or during hospital stay patient has or had the following: CVA/TIA Diagnosis No Discharge Core Measures Meds if any: Prescribed or Continued at Discharge Meds if any: NOT Prescribed or Continued at Discharge Venous thromboembolism Inclusion Criteria VTE Diagnosis No VTE Type NONE VTE Confirmed by (Test) NONE Discharge Core Measures - Per Current guidelines, there needs to be overlap - treatment for the first 5 days of Warfarin therapy. - If discharged on Warfarin prior to 5 days of - overlap therapy, the patient will need to be - assessed for post discharge needs including - *Post discharge parental anticoagulation - *Warfarin and/or parental anticoagulation education - *Follow up date to check INR post discharge At least 5 days overlap therapy as Inpatient No Meds if any: Prescribed or Continued at Discharge Note: Overlap Therapy is Warfarin and Anticoagulant Meds if any: NOT Prescribed or Continued at Discharge
--- NOTE | 2016-08-31 15:47 | PN- Vascular Surgery ---
Subjective Subjective: POST-OP NOTE: No complaints. Back from debridement / wound vac placement. Objective Vital Signs and I&Os Vital Signs Date Time Temp Pulse Resp B/P B/P Pulse O2 O2 Flow FiO2 Mean Ox Delivery Rate 08/31 1418 Room Air Room Air 08/31 1418 97.7 71 20 110/70 94 Room Air 08/31 1349 Room Air Room Air 08/31 1348 98 Room Air 08/31 1325 98.0 74 16 112/70 94 Room Air 08/31 0724 98.6 69 20 130/80 96 Room Air 08/30 2234 98.1 80 20 102/70 97 Room Air Intake & Output 08/31 1600 08/31 0800 08/31 0000 08/30 1600 08/30 0800 08/30 0000 Intake Total 260 150 700 420 630 Output Total 650 150 975 614 831 0895 Balance -650 110 -825 500 195 -695 Intake, IV 260 150 100 300 150 Intake, Oral 0 600 120 480 Output, Stool 150 225 200 225 50 Output, Urine 650 0 750 1275 Physical Exam: General - alert & oriented. comfortable. no acute distress. Extremities - wound vac in place over right leg amputation incision. no leak. Current Medications: Current Medications Sig/Angela Start time Last Medication Dose Route Stop Time Status Admin Acetaminophen 1,000 MG .STK-MED ONE 08/31 721 DC IV 08/31 722 Acetaminophen 650 MG Q6P PRN 08/26 1815 AC PO Amlodipine Besylate 5 MG DAILY 08/27 1000 AC 08/31 PO 1515 Ampicillin Sodium/ 3,000 MG Q6 08/26 2359 DC 08/31 Sulbactam Sodium IV 1321 Sodium Chloride 100 ML Aspirin Buffered 81 MG DAILY 08/27 1000 AC 08/31 PO 1515 Atorvastatin Calcium 5 MG 1700 08/27 1700 AC 08/30 PO 1551 Dexmedetomidine HCl 200 MCG .STK-MED ONE 08/31 722 DC IV 09/01 723 Escitalopram Oxalate 10 MG DAILY 08/27 1000 AC 08/31 PO 1515 Fentanyl Citrate 250 MCG .STK-MED ONE 08/31 722 DC IM 08/31 07 Gabapentin 100 MG Q12P PRN 08/26 1815 AC 08/31 PO 1515 Heparin Sodium 5,000 UNIT Q8 08/26 2200 AC 08/31 (Porcine) SC 1515 Hydromorphone HCl 1 MG Q4 HRS NEEDED PRN 08/26 1900 AC 08/31 IV 1321 Hydromorphone HCl 0.5 MG Q4P PRN 08/26 1845 AC IV Insulin Aspart 0 TIDAC 08/27 0800 AC 08/30 SC 1202 Insulin Detemir 8 UNITS BID 08/26 220 AC 08/30 SC 2109 Lisinopril 40 MG DAILY 08/27 1000 AC 08/31 PO 1514 Loperamide HCl 4 MG TIDAC 08/28 1700 AC 08/31 PO 1515 Melatonin 5 MG AT BEDTIME 08/26 220 AC 08/30 PO 2109 Morphine Sulfate 2 MG ONCE ONE 08/30 1830 DC 08/30 IV 08/30 183 183 Nystatin 1 DANIELLE BID 08/23 1110 DC 08/29 TOP 1036 Results Last 48 Hours of Labs: Laboratory Tests 08/31 0730 Chemistry Sodium (137 - 145 mmol/L) 139 Potassium (3.5 - 5.1 mmol/L) 4.8 Chloride (98 - 107 mmol/L) 102 Carbon Dioxide (22 - 30 mmol/L) 30 Anion Gap (5 - 16) 8 BUN (9 - 20 mg/dL) 9 Creatinine (0.7 - 1.2 mg/dL) 0.5 L Estimated GFR (>60 ml/min) > 60 BUN/Creatinine Ratio (7 - 25 %) 18.0 Coagulation PT (9.4 - 12.5 SEC) 12.4 INR (0.90 - 1.17) 1.18 H APTT (25 - 37 SEC) 33 Hematology CBC w Diff NO MAN DIFF REQ WBC (4.8 - 10.8 /CUMM) 9.7 RBC (4.70 - 6.10 /CUMM) 3.37 L Hgb (14.0 - 18.0 G/DL) 9.1 L Hct (42 - 52 %) 28.8 L MCV (80.0 - 94.0 FL) 85.3 MCH (27.0 - 31.0 PG) 27.0 RDW (11.5 - 14.5 %) 18.1 H Plt Count (130 - 400 /CUMM) 404 H MPV (7.4 - 10.4 FL) 7.5 Gran % (42.2 - 75.2 %) 63.3 Lymphocytes % (20.5 - 51.1 %) 21.5 Monocytes % (1.7 - 9.3 %) 8.2 Eosinophils % (0 - 5 %) 6.5 H Basophils % (0.0 - 2.0 %) 0.5 Absolute Granulocytes (1.4 - 6.5 /CUMM) 6.1 Absolute Lymphocytes (1.2 - 3.4 /CUMM) 2.1 Absolute Monocytes (0.10 - 0.60 /CUMM) 0.8 H Absolute Eosinophils (0.0 - 0.7 /CUMM) 0.6 Absolute Basophils (0.0 - 0.2 /CUMM) 0 PUBS MCHC (33.0 - 37.0 G/DL) 31.7 L Assessment/Plan Assessment/Plan This 46 year old well known to the surgical service POD#0 s/p debridement of amputation site and placement of wound vac advance diet as tolerated pain control as needed upon discharge: vac changes will need to be performed every Wednesday at the [facility] vac changes will be done 1-2 other days of the week at rehab or at home as arranged d/w vascular surgeon
--- NOTE | 2016-08-31 17:16 | Operative Report ---
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 There was a couple of areas of staple line that was opened on postoperative check. These 2 areas have not healed. The patient was scheduled for debridement and washout in the operating room with possible wound VAC placement. An informed consent was obtained. Patient was taken to the operating room and placed supine on the table. A timeout was called according to protocol. The patient is already on scheduled antibiotics therefore no more antibiotic was given. After the patient was prepped and draped in standard surgical fashion, the lateral in the medial right BKA stump wound were debrided using 10 blade and curette. There was no evidence of purulence. Was some soft fibrinous exudate. There was adequate bleeding from the tissue. Some of the skin edges were also trimmed with the 10 blade. There was also a very small wound in the middle of the stump that was open. This was also debrided and irrigated with sterile saline solution. The lateral round wound measured about 1-1/2 cm in diameter. The middle round wound measured 5 mm in diameter. The medial elliptical wound measured about 4 cm in length and 1/2 cm in width. Negative pressure dressing was applied. The patient tolerated the procedure well and was taken to the recovery room in stable condition.
[2016-08-31 22:22] VITALS: BP 110/70
[2016-09-01 06:34] VITALS: BP 136/84
--- NOTE | 2016-09-01 07:16 | PN- Housestaff ---
UL MARAH PERKINS,SUNITA 09/01/16 0716: Subjective Follow-up For: Perirectal abscess Samir's gangrene s/p debridement 2 Left hydronephrosis Status post Laparoscopic diverting loop ileostomy Washout and wound VAC for Right-sided below knee amputation Complaints: no complaints Subjective: Patient remained afebrile overnight. No acute episodes of chest pain and shortness of breath. Review of Systems Constitutional: Denies: chills, fever. Cardiovascular: Denies: chest pain, palpitations. Respiratory: Denies: cough, short of breath. Gastrointestinal: Denies: abdominal pain, nausea, vomiting. Genitourinary: Denies: dysuria. Musculoskeletal: Denies: back pain, joint pain. Objective Last 24 Hrs of Vital Signs/I&O Vital Signs Date Time Temp Pulse Resp B/P B/P Pulse O2 O2 Flow FiO2 Mean Ox Delivery Rate 09/01 0634 98.0 76 20 136/84 97 Room Air 08/31 2222 98.4 80 20 110/70 95 08/31 1418 Room Air Room Air 08/31 1418 97.7 71 20 110/70 94 Room Air 08/31 1349 Room Air Room Air 08/31 1348 98 Room Air 08/31 1325 98.0 74 16 112/70 94 Room Air Intake & Output 09/01 0800 09/01 0000 08/31 1600 Intake Total 250 890 100 Output Total 300 850 Balance 250 590 -750 Intake, IV 10 10 100 Intake, Oral 240 880 Output, Stool 300 200 Output, Urine 650 Physical Exam General Appearance: Alert, Oriented X3, Cooperative, No Acute Distress Skin: No Rashes HEENT: Atraumatic Cardiovascular: Regular Rate, Normal S1, Normal S2 Lungs: Clear to Auscultation, Normal Air Movement Abdomen: Normal Bowel Sounds, Soft, No Tenderness, Diverting loop ileostomy with output, watery stool Neurological: Normal Speech, Normal Tone, Sensation Intact Extremities: Right BKA Vascular: Normal Pulses Lines/Diet/Fluids Lines: peripheral lines Restraints: none Assessment/Plan Assessment: 46-year-old man with past medical history significant for hypertension, insulin- dependent diabetes mellitus, and peripheral vascular disease, Group B strep sepsis secondary to a gangrenous right great toe status post amputation and 1 month course of Unasyn, osteomyelitis status post right BKA came to emergency department for chief complaint of one-week history of perirectal pain that is progressive and aggravated with sitting and bowel movement. Vitals on admission, patient was febrile to 102.2. Laboratory data showed leukocytosis of 20,000. CT of the abdomen and pelvis showed Abnormal appearance along the left gluteal cleft is possibly associated with a left perianal fistula extending to the posterior skin surface and Increased left hydronephrosis. Increased periureteral stranding. No calculi. Similar appearance of bilateral perinephric stranding. Patient was admitted on general medicine floor for the management of following problems Perianal abscess status post debridement 3 Surgical consult was obtained and patient was evaluated by surgical team. Patient underwent examination under anesthesia and debridment. Patient is currently 13 days status post first I&D of a perirectal abscess and day 8 status post second I&D. ID consult was placed as patient was recently treated for urinary tract infection in the facility and also a few papules were noticed on patient's upper extremity. UA sample is not great as it contains a lot of epithelial cells. Urine culture growing yeast, most likely colonization. As per ID recommendation antibiotics were switched from ciprofloxacin and metronidazole to metronidazole and ceftriaxone. OR cultures grew Group B strep, Enterococcus and gram-negative rods, and antibiotics were switched as per ID recommendation to Zosyn and metronidazole and ceftriaxone was discontinued. Zosyn has been discontinued and it was switched to IV Unasyn based on the sensitivity of organisms identified in OR cultures (Proteus Mirabilis, E Coli, Klebsiella Pneumoniae, Enterococcus, anerobes and Beta Strep Group B). Unasyn was discontinued yesterday. His WBC is pending today. General surgery did second Look with washout and a debridment for the Necrotizing perineal soft tissue infection in the operating room today. Patient needed a diverting stoma because of persistent fecal soilage. Few days back patient had a bowel movement which was soiled with blood. Surgical team was called to assess the wound. As per assessment, bowel movement pulled off the clots from the surgical area, dressing was done and area was repacked. Continue perirectal 1/4 dakins packing BID Laparoscopic diverting loop ileostomy Patient is currently postoperative day 6. Follow-up surgical recommendations for ileostomy care Continue Unasyn as per ID recommendations History of osteomyelitis status post right BKA Patient has past medical history significant for osteomyelitis and underwent below knee amputation on 07/20/16. Yesterday 08/31/2016 as per vascular surgery did debridement washout and wound VAC for right below knee amputation. Left hydronephrosis Although patient has mild left hydronephrosis on CAT scan, his renal function tests are within acceptable limit. Creatine this morning is pending. History of diabetes mellitus FS, 146, 186 Continue Accu-Cheks TIDAC Continue Novolog sliding scale TIDAC We will continue his levemir dose of 8 units BID Novolog sliding scale. Patient is full code Patient is on heparin for DVT prophylaxis Patient is on diabetic diet Problem List: 1. S/P BKA (below knee amputation) unilateral 2. Ileostomy in place 3. Perirectal abscess 4. Perirectal fistula Pain Ratin Pain Location: Perirectal area Pain Goal: Pain 4 or less Pain Plan: Continue with current pain management Tomorrow's Labs & Rationales: CBC for leukocytosis BP monitoring of renal function DVT/Prophylaxis: pharmacological ALISON CHAKRABORTY 09/01/16 0919: Attending MD Review Statement Attending Statement Attending MD Statement: examined this patient, discuss w/resident/PA/MASON HELPER, agreed w/resident/PA/MASON HELPER, discussed with family, reviewed EMR data (avail), discussed with nursing, discussed with case mgmt, reviewed images, amended to note Attending Assessment/Plan: ASSESSMENT 1. s/p debridement of samir gangrene X 2 2. Left hydronephrosis and pernephric standing 3. Sepsis 2/2 above resolved 4. T2DM on oral hypoglycemics poorly controlled 5. PVD and h/o OM s/p amputation 6. perianal abscess S/P diverting ileostomy/colostomy 7. s/p revision of BKA 08/31/16 (wound vac placement and wash out) Plan - Admit to general medicine - abx as per ID, reviewed wound cultures - [facility] f/u. + bowel function, advance diet as tolerated/surgery. - RISS and titrate insulin as needed. - Pain control adressed. optmising pain meds. swtich to PO - Plan for possible BKA washout with wound vac as per Vascular surgery on Wednesday. - Patient is low risk for low risk procedure, patient is medically stable for procedure. - gi/dvt prophyalxis - anticipate d/c planning to STR next 24-48 hrs
[2016-09-01 08:33] LABS: ABSOLUTE BASOPHIL COUNT 0.1 /CUMM (0.0-0.2); ABSOLUTE EOSINOPHIL COUNT 0.5 /CUMM (0.0-0.7); ABSOLUTE GRANULOCYTE CT 5.5 /CUMM (1.4-6.5); ABSOLUTE MONOCYTE COUNT 0.7 /CUMM (0.10-0.60); BASOPHIL % 0.8 % (0.0-2.0); GRANULOCYTE % 61.9 % (42.2-75.2); MEAN CORPUSCULAR HGB 27.8 PG (27.0-31.0); MEAN CORPUSCULAR HGB CONC 32.8 G/DL (33.0-37.0); MEAN CORPUSCULAR VOLUME 84.8 FL (80.0-94.0); PLATELET COUNT 413 /CUMM (130-400); RBC DISTRIBUTION WIDTH 17.7 % (11.5-14.5); RED BLOOD CELL CT 3.53 /CUMM (4.70-6.10); WHITE BLOOD CELL COUNT 8.8 /CUMM (4.8-10.8)
[2016-09-01 13:59] VITALS: BP 118/64
--- NOTE | 2016-09-01 16:53 | Incdntl Nt Psy ---
Incidental Note Notation: No formal consult placed. Patient and pastoral care requested this grant writer see patient. S: Patient endorses low mood due to continuous medical issues. Anxiety is fairly well controlled by medication recommended by this grant writer on previous admission but states she feels she could use a higher dose of gabapentin. Reports he will be returning to rehabilitation tomorrow likely. O: Mental Status Exam Presentation/Appearance: Cooperative with evaluation. Hospital garb. Orientation: Grossly oriented Sensorium: Awake and alert Eye contact: Appropriate Affect: Somewhat blunted, tearful at times Mood: Dysphoric Depression: Endorses Anxiety: Endorses Thought Content: - Denies SI/HI, AH/VH, PI. States and also believes they will not kill themselves. - Denies Hopeless/Helpless Thoughts Thought Process: Linear Associations: Appropriate Speech: Normal tone and rate Language: Judgment: Fair Insight: Fair Cognition: Memory: Grossly intact Attention/Concentration: Grossly intact Brief ROS Gait: Impaired Sleep: Fair Appetite: Adequate Energy: Low IADLs/ADLs: With assisst A: Rule out adjustment disorder Rule out depressive disorder due to another medical condition P: - Continue to have patient followed by psychiatry at rehabilitation - Continue Lexapro - Please consider increasing gabapentin to 300 mg 3 times a day when necessary for anxiety A total of 30 minutes was spent with the patient with more than 50% of the time spent in counseling and/or coordination of care.
[2016-09-01 22:11] VITALS: BP 124/76
[2016-09-02 06:39] VITALS: BP 136/80
--- NOTE | 2016-09-02 07:31 | PN- Housestaff ---
Subjective Follow-up For: Perirectal abscess Carolina's gangrene s/p debridement 2 Left hydronephrosis Status post Laparoscopic diverting loop ileostomy Washout and wound VAC for Right-sided below knee amputation Complaints: no complaints Subjective: Patient remained afebrile overnight. No acute episodes of chest pain and shortness of breath. Review of Systems Constitutional: Denies: chills, fever. EENTM: Denies: visual changes. Cardiovascular: Denies: chest pain, palpitations. Respiratory: Denies: cough, short of breath. Gastrointestinal: Denies: abdominal pain, nausea, vomiting. Objective Last 24 Hrs of Vital Signs/I&O Vital Signs Date Time Temp Pulse Resp B/P B/P Pulse O2 O2 Flow FiO2 Mean Ox Delivery Rate 09/02 0639 97.9 67 18 136/80 97 Room Air 09/01 2211 98.4 74 20 124/76 95 Room Air 09/01 1359 98.0 74 22 118/64 99 Intake & Output 09/02 0800 09/02 0000 09/01 1600 Intake Total 120 480 600 Output Total 148 427 5293 Balance -30 -120 -1000 Intake, Oral 120 480 600 Output, Stool 150 150 Output, Urine 600 1450 Physical Exam General Appearance: Alert, Oriented X3, Cooperative, No Acute Distress HEENT: Atraumatic Neck: Supple Cardiovascular: Regular Rate, Normal S1, Normal S2, No Murmurs Lungs: Clear to Auscultation, Normal Air Movement Abdomen: diverting loop ileostomy with output and watery stools Neurological: Normal Speech, Normal Tone, Sensation Intact Extremities: right BKA Vascular: Normal Pulses Current Medications: Current Medications Sig/Angela Start time Last Medication Dose Route Stop Time Status Admin Acetaminophen 650 MG Q6P PRN 08/26 1815 AC PO Amlodipine Besylate 5 MG DAILY 08/27 1000 AC 09/01 PO 0935 Aspirin Buffered 81 MG DAILY 08/27 1000 AC 09/01 PO 0935 Atorvastatin Calcium 5 MG 1700 08/27 1700 AC 09/01 PO 1559 Escitalopram Oxalate 10 MG DAILY 08/27 1000 AC 09/01 PO 0935 Gabapentin 300 MG TID 09/01 2200 AC 09/01 PO 2004 Gabapentin 100 MG Q12P PRN 08/26 1815 DC 09/01 PO 0935 Heparin Sodium 5,000 UNIT Q8 08/26 2200 AC 06/28 (Porcine) SC 0525 Hydromorphone HCl 1 MG Q4 HRS NEEDED PRN 08/26 1900 DC 09/01 IV 0805 Hydromorphone HCl 0.5 MG Q4P PRN 08/26 1845 DC IV Insulin Aspart 0 TIDAC 08/27 0800 AC 09/01 SC 1725 Insulin Detemir 17 UNITS BID 09/01 2200 AC 09/01 SC 2154 Insulin Detemir 8 UNITS BID 08/26 2200 DC 09/01 SC 0937 Lisinopril 40 MG DAILY 08/27 1000 AC 09/01 PO 0935 Loperamide HCl 4 MG TIDAC 08/28 1700 AC 09/01 PO 1600 Melatonin 5 MG AT BEDTIME 08/26 2200 AC 09/01 PO 2154 Oxycodone/ 2 TAB Q4P PRN 09/01 1600 AC 09/02 Acetaminophen PO 0434 Oxycodone/ 1 TAB ONCE ONE 09/01 1315 DC 09/01 Acetaminophen PO 09/01 1316 1313 Oxycodone/ 1 TAB Q4P PRN 09/01 0930 DC 09/01 Acetaminophen PO 1208 Patient Medication 1 ED .STK-MED ONE 09/01 1417 DC Teaching ED 09/01 1418 Lines/Diet/Fluids Lines: peripheral lines Restraints: none Assessment/Plan Assessment: 46-year-old man with past medical history significant for hypertension, insulin- dependent diabetes mellitus, and peripheral vascular disease, Group B strep sepsis secondary to a gangrenous right great toe status post amputation and 1 month course of Unasyn, osteomyelitis status post right BKA came to emergency department for chief complaint of one-week history of perirectal pain that is progressive and aggravated with sitting and bowel movement. Vitals on admission, patient was febrile to 102.2. Laboratory data showed leukocytosis of 20,000. CT of the abdomen and pelvis showed Abnormal appearance along the left gluteal cleft is possibly associated with a left perianal fistula extending to the posterior skin surface and Increased left hydronephrosis. Increased periureteral stranding. No calculi. Similar appearance of bilateral perinephric stranding. Patient was admitted on general medicine floor for the management of following problems Perianal abscess status post debridement 3 Surgical consult was obtained and patient was evaluated by surgical team. Patient underwent examination under anesthesia and debridment. Patient is currently 14 days status post first I&D of a perirectal abscess and day 9 status post second I&D. ID consult was placed as patient was recently treated for urinary tract infection in the facility and also a few papules were noticed on patient's upper extremity. UA sample is not great as it contains a lot of epithelial cells. Urine culture growing yeast, most likely colonization. As per ID recommendation antibiotics were switched from ciprofloxacin and metronidazole to metronidazole and ceftriaxone. OR cultures grew Group B strep, Enterococcus and gram-negative rods, and antibiotics were switched as per ID recommendation to Zosyn and metronidazole and ceftriaxone was discontinued. Zosyn has been discontinued and it was switched to IV Unasyn based on the sensitivity of organisms identified in OR cultures (Proteus Mirabilis, E Coli, Klebsiella Pneumoniae, Enterococcus, anerobes and Beta Strep Group B). Unasyn was discontinued yesterday. His WBC is pending today. General surgery did second Look with washout and a debridment for the Necrotizing perineal soft tissue infection in the operating room today. Patient needed a diverting stoma because of persistent fecal soilage. Few days back patient had a bowel movement which was soiled with blood. Surgical team was called to assess the wound. As per assessment, bowel movement pulled off the clots from the surgical area, dressing was done and area was repacked. Continue perirectal 1/4 dakins packing BID Laparoscopic diverting loop ileostomy Patient is currently postoperative day 7. Follow-up surgical recommendations for ileostomy care Continue Unasyn as per ID recommendations History of osteomyelitis status post right BKA Patient has past medical history significant for osteomyelitis and underwent below knee amputation on 07/20/16. 08/31/2016 as per vascular surgery did debridement washout and wound VAC for right below knee amputation. Left hydronephrosis Although patient has mild left hydronephrosis on CAT scan, his renal function tests are within acceptable limit. Creatine this morning is pending. History of diabetes mellitus FS, 123, Continue Accu-Cheks TIDAC Continue Novolog sliding scale TIDAC We will continue his levemir dose of 17 units BID Novolog sliding scale. Patient is full code Patient is on heparin for DVT prophylaxis Patient is on diabetic diet Problem List: 1. Osteomyelitis 2. S/P BKA (below knee amputation) unilateral 3. Ileostomy in place 4. Perirectal fistula 5. Perirectal abscess Pain Ratin Pain Location: Amber- rectal area Pain Goal: Pain 4 or less Pain Plan: Continue current pain management Tomorrow's Labs & Rationales: Most likely patient will be discharged DVT/Prophylaxis: pharmacological
[2016-09-02 09:00] LABS: ABSOLUTE BASOPHIL COUNT 0.1 /CUMM (0.0-0.2); ABSOLUTE EOSINOPHIL COUNT 0.6 /CUMM (0.0-0.7); ABSOLUTE GRANULOCYTE CT 4.8 /CUMM (1.4-6.5); ABSOLUTE LYMPH COUNT 2.5 /CUMM (1.2-3.4); ABSOLUTE MONOCYTE COUNT 0.8 /CUMM (0.10-0.60); BASOPHIL % 0.7 % (0.0-2.0); EOSINOPHIL % 6.4 % (0-5); GRANULOCYTE % 55.2 % (42.2-75.2); HEMATOCRIT 32.4 % (42-52); MEAN CORPUSCULAR HGB 27.6 PG (27.0-31.0); MEAN CORPUSCULAR HGB CONC 31.9 G/DL (33.0-37.0); MEAN CORPUSCULAR VOLUME 86.6 FL (80.0-94.0); PLATELET COUNT 376 /CUMM (130-400); RBC DISTRIBUTION WIDTH 18.1 % (11.5-14.5); RED BLOOD CELL CT 3.74 /CUMM (4.70-6.10); WHITE BLOOD CELL COUNT 8.7 /CUMM (4.8-10.8)
[2016-09-02] MEDS ORDERED: GABAPENTIN300 M2 PO (09:48)
[2016-09-02] MEDS ORDERED: LEVEMIR100 UNIT/1 SC (09:49)
[2016-09-02] MEDS ORDERED: PERCOCET 5-3251 EACH PO (09:59)
[2016-09-02] MEDS ORDERED: TYLENOL325 M1 PO (09:59)
[2016-09-02] MEDS ORDERED: LOPERAMIDE2 M2 PO (09:59)
--- NOTE | 2016-09-02 10:03 | Discharge Summary ---
Visit Information Visit Dates Admission Date: 08/18/16 Discharge Date: 09/02/16 Hospital Course Course Attending Physician: ALISON CHAKRABORTY MD Primary Care Physician: FLORINDA PERKINS,[facility] Course: 46-year-old man with past medical history significant for hypertension, insulin- dependent diabetes mellitus, peripheral vascular disease, Group B strep sepsis secondary to a gangrenous right great toe status post amputation and 1 month course of Unasyn, osteomyelitis status post right BKA came to emergency department for chief complaint of one-week history of perirectal pain that is progressive and aggravated with sitting and bowel movement. Vitals on admission, patient was febrile to 102.2. Laboratory data showed leukocytosis of 20,000. CT of the abdomen and pelvis showed Abnormal appearance along the left gluteal cleft is possibly associated with a left perianal fistula extending to the posterior skin surface and Increased left hydronephrosis. Increased periureteral stranding. No calculi. Similar appearance of bilateral perinephric stranding. Patient was admitted on general medicine floor for the management of following problems Perianal abscess status post debridement 2 Surgical consult was obtained and patient was evaluated by surgical team. Patient underwent examination under anesthesia, Washout and debridement of perineal wound twice during the hospitalization. Patient needed a diverting stoma because of persistent fecal soilage. As per ID recommendation antibiotics were switched from ciprofloxacin and metronidazole to metronidazole and ceftriaxone initially. OR cultures from the first debridement grew Group B strep , Enterococcus and gram-negative rods, and antibiotics were switched as per ID recommendation to Zosyn and metronidazole and ceftriaxone was discontinued. Zosyn has been discontinued later and it was switched to IV Unasyn based on the sensitivity of organisms identified in OR cultures (Proteus Mirabilis, E Coli, Klebsiella Pneumoniae, Enterococcus, anerobes and Beta Strep Group B). Unasyn was eventually discontinued before discharge. Patient remained afebrile during the last 2 weeks of hospitalization. Leukocytosis also decreased from a maximum of 22.-9.7 on discharge. Laparoscopic diverting loop ileostomy Patient was discharged on postoperative day 7 of laparoscopy diverting loop ileostomy. Patient will require ileostomy care in the short-term rehabilitation. History of osteomyelitis status post right BKA Patient has past medical history significant for osteomyelitis and underwent below knee amputation on 07/20/16. 08/31/2016 as per vascular surgery did debridement washout and wound VAC for right below knee amputation. Patient will require wound care management and wound VAC in the short-term rehabilitation. Positive urine culture for yeast UA sample was not great as it contained a lot of epithelial cells. Urine culture grew yeast, most likely colonization as per ID. Patient was recently treated for urinary tract infection in the facility and also a few papules were noticed on patient's upper extremity. Left hydronephrosis Although patient has increased his left hydronephrosis on CAT scan, his renal function tests are within acceptable limit. Urology consult was placed and recommendations were followed. No urological interventions were done during the hospitalization. History of diabetes mellitus Accu-Cheks were done on regular basis and patient was on insulin sliding scale and long-acting insulin. 34 units twice a day of Levemir were switched to 17 units of Levemir on discharge because of persistently low blood sugars. Patient was full code Patient was on heparin for DVT prophylaxis Patient was on diabetic diet Patient was in pain management initially with IV Dilaudid which was switched to Percocet on discharge Allergies: Coded Allergies: cephalexin (From KEFLEX) (Intermediate, HIVES 04/29/16) adhesive (Mild, IRRITATION 04/29/16) Significant Procedures: Status post I&D Perianal abscess X 2 Status post diverting ileostomy Washout and wound VAC for Right-sided below knee amputation Disposition Summary Disposition Principal Diagnosis: Perirectal abscess Carolina's gangrene s/p debridement 2 Left hydronephrosis Status post Laparoscopic diverting loop ileostomy Washout and wound VAC for Right-sided below knee amputation Additional Diagnosis: History of hypertension History of hyperlipidemia History of diabetes History of osteomyelitis History of PVD Discharge Disposition: SNF Discharge Instructions General Discharge Information Code Status: Full Code Patient's Diet: Diabetic diet Patient's Activity: As tolerated Fall precautions Follow-Up Instructions/Appts: Vac changes will need to be performed every Wednesday at the [facility] wound [facility]. Vac changes will be done 1-2 other days of the week at rehab or at home as arranged. Special Instructions: Follow-up with Dr. Arauz, colorectal surgeon after discharge Follow-up with vascular surgery, after discharge Follow-up with primary care in a week after discharge Medications at Discharge Discharge Medications: Stop taking the following medications: Gabapentin (Gabapentin) 100 MG CAPSULE ORAL Every 12 hours as needed as needed for ANXIETY Qty = 60 Insulin Detemir (Levemir Flextouch) 100 UNIT/ML (3 ML) INSULN.PEN Inject into fatty tissue Q12H Continue taking these medications: Lovastatin (Lovastatin) 20 MG TABLET 1 Tablet ORAL DAILY Qty = 30 Comments: Last Taken: 07/29/16 Time: 1000 Lisinopril (Lisinopril) 40 MG TABLET 1 Tablet ORAL DAILY Comments: Last Taken: 07/30/16 Time: 10AM Metformin HCl (Metformin HCl) 500 MG TABLET 1 Tablet ORAL TWICE DAILY Comments: NOT GIVEN IN HOSPITAL Amlodipine Besylate (Amlodipine Besylate) 5 MG TABLET 1 Tablet ORAL DAILY Comments: Last Taken:07/30/16 Time: 10AM Ferrous Sulfate (Slow Fe) 142 MG (45 MG IRON) TABLET.ER 1 Tablet ORAL DAILY Qty = 30 Comments: NOT GIVEN IN HOSPITAL Aspirin (Ecotrin*) 81 MG TABLET.DR 1 Tablet ORAL DAILY Escitalopram Oxalate (Lexapro) 10 MG TABLET 1 Tablet ORAL DAILY Naloxone HCl (Narcan) 4 MG/ACTUATION SPRAY 4 Milligram In the nose As Directed as needed for OPIOID INDUCED RESP. DEPRESSIO Melatonin (Melatonin) 3 MG TABLET 1 Tablet ORAL Every night Qty = 30 Glucagon,Human Recombinant (Glucagon Emergency Kit) 1 MG KIT 1 Milligram INTRAMUSC As Directed as needed for HYPOGLYCEMIA Lactobacillus Acidophilus (Acidophilus) 1 EACH CAPSULE 1 Capsule ORAL DAILY Bisacodyl (Dulcolax) 10 MG SUPP.RECT 1 Suppository RECTAL DAILY as needed for CONSTIPATION Na Phos,M-B/Na Phos,Di-Ba (Fleet Enema) 19 GRAM-7 GRAM/118 ML ENEMA 1 Enema RECTAL DAILY as needed for CONSTIPATION Magnesium Hydroxide (Milk Of Magnesia) 400 MG/5 ML ORAL.SUSP 30 Milliliters ORAL Every 3 days as needed for CONSTIPATION Sennosides (Senna) 8.6 MG TABLET 2 Tablet ORAL DAILY as needed for CONSTIPATION Start taking the following new medications: Gabapentin (Gabapentin) 300 MG CAPSULE 1 Capsule ORAL THREE TIMES DAILY Qty = 120 No Refills Insulin Detemir (Levemir) 100 UNIT/ML VIAL 17 Units Inject into fatty tissue TWICE DAILY Qty = 30 No Refills Oxycodone HCl/Acetaminophen (Percocet 5-325 MG Tablet) 5 MG-325 MG TABLET 2 Tablet ORAL EVERY 4 HOURS NEEDED as needed for PAIN SCALE 7-10 (SEVERE) Qty = 18 No Refills Acetaminophen (Tylenol) 325 MG TABLET 1 Tablet ORAL EVERY SIX HOURS NEEDED as needed for pain 1-3, fever>101 Qty = 60 No Refills Loperamide HCl (Loperamide) 2 MG CAPSULE 1 Capsule ORAL 3 TIMES DAILY BEFORE MEALS as needed for DIARRHEA Qty = 30 No Refills Copies To: FLORINDA PERKINS,SANDIE
[2016-09-02 11:02] VITALS: BP 136/80
[2016-09-02 11:56] VITALS: BP 136/80
[2016-09-02] MEDS ORDERED: LEVEMIR FL100 UNIT/1 SC (12:29)
--- NOTE | 2016-09-02 14:40 | NUR ---
wound care: reported to wound center by vascular staff that pt has a f/u at wound care center with dr gandhi 09/15 at 3:30m pm
== END 2016-09-02 13:00 | DRG 221 ==
LOC: ERH 11:41 → ERHI 17:54 → 2NA 17:54 → ENRESERV 19:59 → ENTRNSPT 20:46 → 2NA 21:18 → CMPTRNSPT 21:19 → 2NA 08-19 08:27 → ENTRNSPT 08-19 15:31 → CMPTRNSPT 08-19 19:31 → ENTRNSPT 08-24 10:00 → EDTRNSPTSTS 08-24 10:26 → CMPTRNSPT 08-24 10:44 → ENTRNSPT 08-26 18:49 → CMPTRNSPT 08-26 19:23 → ENTRNSPT 08-31 12:49 → EDTRNSPTSTS 08-31 12:57 → CMPTRNSPT 08-31 13:22 → ENPENDDIS 09-02 10:08 → 2NA 09-02 13:00
PROVIDERS: Dermatology; Internal Medicine; Preventive Medicine Public Health & General Preventive Medicine; Student in an Organized Health Care Education/Training Program; ADMIT Internal Medicine
PROC: 0JBB0ZZ Excision of Perineum Subcutaneous Tissue and Fascia, Open Approach (ICD-10-PCS; principal; 2016-08-19)
PROC: 0D9P0ZZ Drainage of Rectum, Open Approach (ICD-10-PCS; 2016-08-19)
PROC: 0JBB0ZZ Excision of Perineum Subcutaneous Tissue and Fascia, Open Approach (ICD-10-PCS; 2016-08-24)
PROC: 0D1B4Z4 Bypass Ileum to Cutaneous, Percutaneous Endoscopic Approach (ICD-10-PCS; 2016-08-26)
PROC: 0JDN0ZZ Extraction of Right Lower Leg Subcutaneous Tissue and Fascia, Open Approach (ICD-10-PCS; 2016-08-31)
DX: K61.1 Rectal abscess (principal); N49.3 Fournier gangrene; E11.40 Type 2 diabetes mellitus with diabetic neuropathy, unspecified; T81.89XA Other complications of procedures, not elsewhere classified, initial encounter; N13.30 Unspecified hydronephrosis; E66.9 Obesity, unspecified; E87.1 Hypo-osmolality and hyponatremia; Z68.31 Body mass index [BMI] 31.0-31.9, adult; E11.65 Type 2 diabetes mellitus with hyperglycemia; E78.5 Hyperlipidemia, unspecified; Y83.8 Other surgical procedures as the cause of abnormal reaction of the patient, or of later complication, without mention of misadventure at the time of the procedure; I10 Essential (primary) hypertension; I73.9 Peripheral vascular disease, unspecified; F32.9 Major depressive disorder, single episode, unspecified; Z89.511 Acquired absence of right leg below knee; Z79.4 Long term (current) use of insulin
CPT/HCPCS: 2NAP; 87070; 87075; 36415; 74177; 81001; 82436; 87040; 87071; 87086; 87088; 87147; 88304; 96365; 96375; 99291; J0131; J0696; J0744; J1170; J1644; J1815; J2543; J3370; J7042; J7060

== ENCOUNTER 2017-04-08 02:50 | Emergency (ER) | payer OTHER ==
[~2017-04-08] VITALS: Ht 190.5 cm; Wt 132.4 kg
[~2017-04-08 02:50] MED LIST changes: +ACIDOPHILUS1 EACH PO; +ALLEGRA ALLERG180 M1 PO; +ASPIRIN EC81 M1 PO; +ATENOLOL50 M1 PO; +CIPRO500 M1 PO; +DILAUDID2 M1 PO; +DULCOLAX10 M1 RC; +FLEET ENEMA133 ML RC; +GABAPENTIN300 M2 PO; +GLUCAGON EMERGEN1 M1 IM; +LEXAPRO10 M1 PO; +LOMOTIL 2.5-0.1 EACH PO; +LOPERAMIDE2 M2 PO; +MELATONIN3 M4 PO; +MILK OF MA400 MG/52 PO; +NARCAN4 MG NAS; +OXYCODONE HCL E10 MG PO; +QUESTRAN LIGHT210 GM; +SENNA8.6 M3 PO; +SLOW IRON
[2017-04-08 03:45] VITALS: BP 148/82
--- NOTE | 2017-04-08 04:02 | ED PSYCHIATRIC COMPLAINT ---
History of Present Illness General Chief Complaint: General Adult Stated Complaint: PT C/O ANXIETY ATTACK. CATCH BREATH Source: patient, family, old records Exam Limitations: no limitations Vital Signs & Intake/Output Vital Signs & Intake/Output Vital Signs Date Time Temp Pulse Resp B/P B/P Pulse O2 O2 Flow FiO2 Mean Ox Delivery Rate 04/08 0404 92 Room Air 04/08 0357 Room Air 04/08 0345 98.2 78 24 148/82 91 Room Air Allergies Coded Allergies: cephalexin (From KEFLEX) (Intermediate, HIVES 04/08/17) adhesive (Mild, IRRITATION 04/08/17) amoxicillin (From AUGMENTIN) (? 04/08/17) clavulanic acid (From AUGMENTIN) (? 04/08/17) Uncoded Allergies: BLACK OLIVES (? 12/25/16) Reconcile Medications Albuterol Sulfate (Proair Hfa) 90 MCG HFA.AER.AD 2 PUF INH Q4-6 PRN PRN DYSPNEA DISPENSE WITH SPACER Amlodipine Besylate 5 MG TABLET 2 TAB PO DAILY HTN (Reported) Aspirin (Ecotrin*) 81 MG TABLET.DR 1 TAB PO DAILY HEART/BLOOD (Reported) Atenolol 50 MG TABLET 1 TAB PO DAILY HTN (Reported) Cholestyramine/Aspartame (Questran Light Powder) 4 GRAM POWDER ? (Reported) Ciprofloxacin HCl (Cipro) 500 MG TABLET 1 TAB PO BID UTI Diphenoxylate HCl/Atropine (Lomotil 2.5-0.025 MG Tablet) 2.5 MG-0.025 MG TABLET 2 TAB PO TID DIARRHEA (Reported) Escitalopram Oxalate (Lexapro) 10 MG TABLET 1 TAB PO DAILY MENTAL HEALTH ( Reported) Ferrous Sulfate (Slow Fe) 142 MG (45 MG IRON) TABLET.ER 1 TAB PO DAILY SUPPLEMENT Fexofenadine HCl (Cheryle Allergy) 180 MG TABLET 1 TAB PO DAILY ALLERGIES ( Reported) Gabapentin 300 MG CAPSULE 1 CAP PO TID Neuropathic pain Hydromorphone HCl (Dilaudid) 2 MG TABLET 1-3 TAB PO Q4-6 PRN PAIN Insulin Detemir (Levemir Flextouch) 100 UNIT/ML (3 ML) INSULN.PEN 22 UNITS SC BID DM II (Reported) Lorazepam (Ativan) 0.5 MG TABLET 1 TAB PO D PRN ANXIETY Lovastatin 20 MG TABLET 1 TAB PO QHS cholesterol (Reported) Melatonin 3 MG TABLET 1 TAB PO QPM SLEEP (Reported) Metformin HCl 500 MG TABLET 1 TAB PO BID DM II (Reported) Oxycodone HCl (Oxycodone HCl ER) 10 MG TAB.ER.12H 1 TAB PO DAILY PRIOR TO THERAPY (Reported) [SLOW IRON] 142 MG ANEMIA (Reported) Sulfamethoxazole/Trimethoprim (Bactrim Ds Tablet) 800 MG-160 MG TABLET 1 TAB PO BID CELLULITIS Triage Note: TRIAGE: PATIENT TO ER FROM HOME W/ SPOUSE REPORTS GOT HIS RIGHT LOWER EXT BELOW KNEE AMPUTATION WEEKS AGO AND HAS SINCE BEEN HAVING INTERMITTENT ANXIETY "WHERE I FEEL LIKE I CAN'T CATCH MY BREATH." BREATHING SHALLOW THOUGH LUNGS CTA. NO ACUTE DISTRESS NOTED, SPEECH CLEAR. PATIENT ALSO REPORTING RN LACTATION COUGH X FEW DAYS, DENIES OTHER COMPLAINTS. Triage Nurses Notes Reviewed? yes Onset: Abrupt Duration: hour(s): (FEW) Timing: single episode today Severity: mild, moderate Associated Symptoms: anxiety HPI: This is a 46-year-old diabetic male who presents from home with his for chief complaint of sudden onset of feeling very anxious shortness of breath. His gave him half milligram of her Xanax which did not relieve symptoms. History of mild anxiety last anxiety attack was several weeks ago which came and went. Today felt different. He denies any palpitations but feels heaviness in his chest. He is just home from rehabilitation for 6 weeks after being there for 10 months status post a dictation by Dr. Matias. He states that there is a visiting nurse that comes weekly to check and the stump has been doing well, no infections. He is learning to use his prosthetic to walk around but states that he still has a lot of anxiety regarding his amputation. Past History Travel History Traveled to [place] past 21 day No Medical History Any Pertinent Medical History? see below for history Neurological: NONE EENT: NONE Cardiovascular: hypertension, hyperlipidemia, PVD Respiratory: NONE Gastrointestinal: C. 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 MOTHER (diverticulitis). BROTHER (diabetes). Relation not specified for: FH: diabetes mellitus Hx Contributory? No Review of Systems Review of Systems Constitutional: Denies: chills, fever. EENTM: Reports: no symptoms. Respiratory: Reports: short of breath. Cardiovascular: Denies: chest pain, palpitations. GI: Reports: no symptoms. Genitourinary: Reports: no symptoms. Musculoskeletal: Reports: no symptoms. Skin: Reports: no symptoms. Neurological/Psychological: Reports: anxiety. Hematologic/Endocrine: Reports: no symptoms. Immunologic/Allergic: Reports: no symptoms. All Other Systems: Reviewed and Negative Physical Exam Physical Exam General Appearance: well developed/nourished, alert, awake, anxious, mild distress, obese Head: atraumatic Eyes: Bilateral: PERRL, EOMI. Ears, Nose, Throat: normal pharynx, normal ENT inspection, hearing grossly normal Neck: normal inspection, supple Respiratory: normal breath sounds Cardiovascular: regular rate/rhythm Gastrointestinal: soft, non-tender Extremities: normal range of motion, right BKA Neurological/Psychiatric: no motor/sensory deficits, awake, alert, anxious Appearance/Memory/Insight: appropriate appearance, disheveled Behavoir/Eye Contact/Speech: cooperative, normal speech, good eye contact Thoughts/Hallucinations: no apparent hallucination Skin: intact, normal color, warm/dry SAD PERSONS Done? patient not suicidal Progress Differential Diagnosis: ANXIETY, PNEUMONIA, PULMONARY EMBOLISM Plan of Care: Orders Procedure Date/time Status Add-on Test (ER Only) 04/08 0541 Active B-TYPE NATRIURETIC PEP (BNP) 04/08 424 Complete TROPONIN LEVEL 04/08 412 Complete PARTIAL THROMBOPLASTIN TIME 04/08 412 Complete PROTHROMBIN TIME 04/08 412 Complete D-DIMER 04/08 412 Complete COMPREHENSIVE METABOLIC PANEL 04/08 412 Complete CBC WITHOUT DIFFERENTIAL 04/08 412 Complete EKG 04/08 412 Active Laboratory Tests 04/08/17 0425: Anion Gap 14, Estimated GFR > 60, BUN/Creatinine Ratio 37.1 H, Glucose 239 H, Calcium 9.6, Total Bilirubin 0.4, AST 14 L, ALT 22, Alkaline Phosphatase 68, Troponin I < 0.01, Zmt-Y-Expvnuahiet Pept 201 H, Total Protein 7.4, Albumin 3.8 , Globulin 3.6, Albumin/Globulin Ratio 1.1, PT 12.6 H, INR 1.20 H, APTT 32, D- Dimer High Sensitivty < 200, CBC w Diff NO MAN DIFF REQ, RBC 4.25 L, MCV 88.7, MCH 29.1, MCHC 32.8 L, RDW 13.9, MPV 8.6, Gran % 66.8, Lymphocytes % 18.3 L, Monocytes % 8.8, Eosinophils % 5.4 H, Basophils % 0.7, Absolute Granulocytes 8.3 H, Absolute Lymphocytes 2.3, Absolute Monocytes 1.1 H, Absolute Eosinophils 0.7, Absolute Basophils 0.1 D-DIMER, TROPONIN NEGATIVE. PATIENT FEELING MUCH BETTER. CXR ORDERED. CXR SHOWS ? SMALL AIRWAY DISEASE VS EDEMA. BNP ADDED ONTO LABS. PATIENT FEELING BETTER, WANTS TO GO HOME AT THIS TIME. STATES IT SEEMS THATTAKING HIS XANAX HAS IMPROVED HIS SYMPTOMS. Diagnostic Imaging: Viewed by Me: Radiology Read. Discussed w/RAD: Radiology Read. CXR Impression: PATIENT: ALF JUAREZ PRESENT AGE: 46 PATIENT ACCOUNT NO: [id number] : 68 LOCATION: [facility] ORDERING PHYSICIAN: Addis Vasquez MD SERVICE DATE: 04/08/17 EXAM TYPE: RAD - XRY -CHEST XRAY, TWO VIEWS EXAMINATION: XR CHEST CLINICAL INFORMATION: Shortness of breath. Chest pain. COMPARISON: 07/24/2016 TECHNIQUE: 2 views of the chest were obtained. FINDINGS: Mild elevation of the right hemidiaphragm. Bronchial wall thickening with increased interstitial markings. Linear right mid lung atelectasis. No pneumothorax. No pleural effusion. The cardiomediastinal silhouette is unchanged. No acute osseous abnormality. IMPRESSION: Bronchial wall thickening with increased interstitial prominence could represent a small airways process. No dense consolidation. Alternatively, this appearance could be associated with mild edema. DICTATED BY: Mickey PERKINS,Yann DATE/TIME DICTATED:04/08/17528 [employer]AF[employer] MARKER:NOY DATE/TIME TRANSCRIBED:528 CONFIDENTIAL, DO NOT COPY WITHOUT APPROPRIATE AUTHORIZATION. < Electronically signed in Other Vendor System> SIGNED BY: Mickey PERKINS, Yann 04/08/17 0535 Initial ED EKG: NSR Departure Departure Time of Disposition: 608 Disposition: HOME OR SELF CARE Condition: Stable Clinical Impression Primary Impression: Anxiety attack Secondary Impressions: Dyspnea Referrals: Sandoval Tito PERKINS (PCP/Family) Additional Instructions: USE THE INHALER DIRECTED TAKE THE ATIVAN NEEDED FOR ANXIETY FOLLOW UP WITH YOUR DOCTOR IN THE OFFICE RETURN IF NEEDED Departure Forms: Customer Survey General Discharge Information Prescriptions: Current Visit Scripts Lorazepam (Ativan) 1 TAB PO D PRN ANXIETY #8 TAB Albuterol Sulfate (Proair Hfa) 2 PUF INH Q4-6 PRN PRN DYSPNEA #1 INHAL DISPENSE WITH SPACER
[2017-04-08 04:49] LABS: ABSOLUTE BASOPHIL COUNT 0.1 /CUMM (0.0-0.2); ABSOLUTE EOSINOPHIL COUNT 0.7 /CUMM (0.0-0.7); ABSOLUTE GRANULOCYTE CT 8.3 /CUMM (1.4-6.5); ABSOLUTE LYMPH COUNT 2.3 /CUMM (1.2-3.4); ABSOLUTE MONOCYTE COUNT 1.1 /CUMM (0.10-0.60); BASOPHIL % 0.7 % (0.0-2.0); EOSINOPHIL % 5.4 % (0-5); GRANULOCYTE % 66.8 % (42.2-75.2); HEMATOCRIT 37.7 % (42-52); MEAN CORPUSCULAR HGB 29.1 PG (27.0-31.0); MEAN CORPUSCULAR HGB CONC 32.8 G/DL (33.0-37.0); MEAN CORPUSCULAR VOLUME 88.7 FL (80.0-94.0); MEAN PLATELET VOLUME 8.6 FL (7.4-10.4); PLATELET COUNT 234 /CUMM (130-400); RBC DISTRIBUTION WIDTH 13.9 % (11.5-14.5); RED BLOOD CELL CT 4.25 /CUMM (4.70-6.10); WHITE BLOOD CELL COUNT 12.5 /CUMM (4.8-10.8)
[2017-04-08 04:55] LABS: PT 12.6 SEC (9.4-12.5); PTT 32 SEC (25-37)
--- NOTE | 2017-04-08 05:35 | RADIOLOGY REPORT ---
EXAMINATION: XR CHEST CLINICAL INFORMATION: Shortness of breath. Chest pain. COMPARISON: 07/24/2016 TECHNIQUE: 2 views of the chest were obtained. FINDINGS: Mild elevation of the right hemidiaphragm. Bronchial wall thickening with increased interstitial markings. Linear right mid lung atelectasis. No pneumothorax. No pleural effusion. The cardiomediastinal silhouette is unchanged. No acute osseous abnormality. IMPRESSION: Bronchial wall thickening with increased interstitial prominence could represent a small airways process. No dense consolidation. Alternatively, this appearance could be associated with mild edema.
[2017-04-08] MEDS ORDERED: PROAIR HFA8.5 GM INH (06:11)
[2017-04-08] MEDS ORDERED: ATIVAN0.5 M1 PO (06:11)
[2017-04-24] MEDS ORDERED: BACTRIM DS TAB1 EACH PO (21:00)
== END 2017-04-08 06:58 ==
LOC: ERH 02:50
PROVIDERS: Emergency Medicine
DX: F41.9 Anxiety disorder, unspecified (principal); R06.00 Dyspnea, unspecified
CPT/HCPCS: 71046; 93005; 93010